=== PATIENT | male | born 1940 | race Caucasian/White ===

== ENCOUNTER → 2020-03-13 09:53 | Outpatient (BNVA) | payer MEDICARE, SELFPAY | PROVIDERS: Visit Provider Internal Medicine | DX: J30.9 Allergic rhinitis, unspecified (principal); J44.9 Chronic obstructive pulmonary disease, unspecified; Z79.899 Other long term (current) drug therapy | CPT/HCPCS: 99212 ==

== ENCOUNTER → 2020-07-11 09:48 | Outpatient (BNVA) | payer MEDICARE, SELFPAY | PROVIDERS: PCP Internal Medicine; Visit Provider Internal Medicine | DX: J44.9 Chronic obstructive pulmonary disease, unspecified (principal); J30.9 Allergic rhinitis, unspecified; Z79.51 Long term (current) use of inhaled steroids; Z87.891 Personal history of nicotine dependence | CPT/HCPCS: 99212 ==

== ENCOUNTER 2020-08-09 07:55 | Outpatient (REF) | payer MEDICARE, SELFPAY ==
[2020-08-09 10:13] LABS: MANUAL DIFF FLAG NO
[2020-08-09 10:28] LABS: Basophils Percent Auto 0.4 % (0-2); Eosinophils Absolute Auto 0.7 X10*3/uL (0.0-0.4); Eosinophils Percent Auto 8.1 % (0-4); Hematocrit 44.2 % (42-52); Imm Gran Abs Auto 0.04 X10*3/uL (0.00-0.03); Imm Gran Pct Auto 0.5 % (0.0-0.4); Lymphocytes Absolute Auto 2.1 X10*3/uL (1.2-4.9); Lymphocytes Percent Auto 24.9 % (20-40); Mean Corpuscular HGB Conc 31.7 g/dl (31.0-36.0); Mean Corpuscular Hemoglobin 27.2 pg (27.0-33.0); Mean Platelet Volume 10.7 fL (9.4-12.4); Monocytes Absolute Auto 0.6 X10*3/uL (0.1-1.2); Monocytes Percent Auto 6.8 % (2-11); Neutrophils Absolute Auto 5.1 X10*3/uL (2.0-8.3); Neutrophils Percent Auto 59.3 % (45-73); Platelet Count 181 X10*3/uL (160-400); Red Blood Count 5.14 X10*6/uL (4.60-5.80); Red Cell Distribution Width 13.2 % (11.0-16.0); White Blood Count 8.6 X10*3/uL (4.8-10.8)
[2020-08-09 10:45] LABS: Alanine Aminotransferase 17 U/L (0-40); Albumin Level 4.1 g/dL (3.5-5.0); Alkaline Phosphatase 81 U/L (39-117); Anion Gap 13 (12-20); Aspartate Amino Transferase 16 U/L (5-37); Bilirubin Total 0.5 mg/dL (0.0-1.0); Blood Urea Nitrogen 22 mg/dL (9-16); Calcium 9.3 mg/dL (8.4-10.2); Carbon Dioxide 26 mmol/L (22-29); Chloride 105 mmol/L (96-108); Cholesterol 128 mg/dL; Estimated Glomerular Filt Rate > 60; Glucose Fasting 151 mg/dL (60-99); HDL Cholesterol 43 mg/dL; LDL Cholesterol Calculated 67 mg/dl; Potassium 4.8 mmol/L (3.3-5.1); Sodium 139 mmol/L (135-145); Total Protein 6.6 g/dL (6.5-8.0); Triglycerides 91 mg/dL
[2020-08-09 10:53] LABS: Creatinine Urine 87.97 mg/dL; Microalbum/Creatinine Ratio Ur 12.5 ug/mg cr
[2020-08-09 10:58] LABS: Estimated Average Glucose 148 mg/dL; Hemoglobin A1c % 6.8 %
[2020-08-09 11:29] LABS: Vitamin B12 382 pg/mL (200-900)
== END 2020-08-09 07:56 | disposition home or self-care (01) ==
LOC: HO.10HDL 07:55
PROVIDERS: Visit Provider Internal Medicine
DX: Z00.00 Encounter for general adult medical examination without abnormal findings (principal); E11.40 Type 2 diabetes mellitus with diabetic neuropathy, unspecified; E78.00 Pure hypercholesterolemia, unspecified; F33.42 Major depressive disorder, recurrent, in full remission; I10 Essential (primary) hypertension; J44.9 Chronic obstructive pulmonary disease, unspecified; J30.9 Allergic rhinitis, unspecified; Z86.73 Personal history of transient ischemic attack (TIA), and cerebral infarction without residual deficits
CPT/HCPCS: 36415; 80053; 80061; 82043; 82607; 83036; 85025

== ENCOUNTER 2020-08-09 08:15 | Outpatient (REF) | payer MEDICARE, SELFPAY ==
--- NOTE | ~2020-08-09 | XR_ITS ---
EXAMINATION: XR CHEST CLINICAL INFORMATION: Chronic obstructive pulmonary disease. COMPARISON: No priors. TECHNIQUE: 2 views of the chest were obtained. FINDINGS: Normal lung volumes. No consolidation or pulmonary edema. Subtle lucency in the upper lungs which may reflect sequelae of obstructive pulmonary disease. No pneumothorax or pleural effusion. Cardiomediastinal silhouette within normal limits. No acute osseous abnormality. XR/XR chest 2V IMPRESSION: Subtle lucency in the upper lungs which may reflect sequelae of obstructive pulmonary disease. Low-dose CT examination of the chest may be considered for further characterization.
== END 2020-08-09 08:16 | disposition home or self-care (01) ==
LOC: HO.XRAY 08:15
PROVIDERS: PCP Internal Medicine; Visit Provider Internal Medicine
DX: J30.9 Allergic rhinitis, unspecified (principal); J44.9 Chronic obstructive pulmonary disease, unspecified
CPT/HCPCS: 71046

== ENCOUNTER 2020-11-10 12:32 | Emergency (ER) | payer MEDICARE, SELFPAY ==
[2020-11-13 10:40] LABS: Glucose, Whole Blood 106 mg/dL (60-115)
== END 2020-11-10 16:37 | disposition left against medical advice (07) ==
PROVIDERS: Emergency Provider Emergency Medicine
DX: R73.9 Hyperglycemia, unspecified (principal)
CPT/HCPCS: 82947; 99282

== ENCOUNTER 2020-11-14 09:12 | Outpatient (REF) | payer MEDICARE, SELFPAY ==
[2020-11-14 10:31] LABS: Estimated Average Glucose 146 mg/dL; Hemoglobin A1c % 6.7 %
[2020-11-14 10:41] LABS: Alanine Aminotransferase 11 U/L (0-40); Albumin Level 3.4 g/dL (3.5-5.0); Alkaline Phosphatase 78 U/L (39-117); Anion Gap 14 (12-20); Aspartate Amino Transferase 13 U/L (5-37); Bilirubin Total 0.3 mg/dL (0.0-1.0); Blood Urea Nitrogen 20 mg/dL (9-16); Calcium 8.7 mg/dL (8.4-10.2); Carbon Dioxide 24 mmol/L (22-29); Chloride 106 mmol/L (96-108); Estimated Glomerular Filt Rate > 60; Glucose Random 137 mg/dL (60-115); Potassium 5.4 mmol/L (3.3-5.1); Sodium 139 mmol/L (135-145); Total Protein 6.7 g/dL (6.5-8.0)
== END 2020-11-14 09:13 | disposition home or self-care (01) ==
LOC: HO.LAB 09:12
PROVIDERS: PCP Internal Medicine; Visit Provider Internal Medicine
DX: E11.9 Type 2 diabetes mellitus without complications (principal); E78.00 Pure hypercholesterolemia, unspecified; I10 Essential (primary) hypertension; Z86.73 Personal history of transient ischemic attack (TIA), and cerebral infarction without residual deficits
CPT/HCPCS: 36415; 80053; 83036

== ENCOUNTER → 2020-11-15 14:23 | Outpatient (BNVA) | payer MEDICARE, SELFPAY | PROVIDERS: PCP Internal Medicine; Visit Provider Internal Medicine | DX: J30.9 Allergic rhinitis, unspecified (principal); J44.1 Chronic obstructive pulmonary disease with (acute) exacerbation | CPT/HCPCS: 99212 ==

== ENCOUNTER → 2021-01-15 09:41 | Outpatient (BNVA) | payer MEDICARE, SELFPAY | PROVIDERS: PCP Internal Medicine; Visit Provider Internal Medicine | DX: J30.9 Allergic rhinitis, unspecified (principal); J44.9 Chronic obstructive pulmonary disease, unspecified | CPT/HCPCS: 99212 ==

== ENCOUNTER 2021-02-12 07:33 | Outpatient (REF) | payer MEDICARE, SELFPAY ==
[2021-02-12 10:20] LABS: Alanine Aminotransferase 17 U/L (0-40); Albumin Level 4.3 g/dL (3.5-5.0); Alkaline Phosphatase 80 U/L (39-117); Anion Gap 14 (12-20); Aspartate Amino Transferase 15 U/L (5-37); Bilirubin Total 0.4 mg/dL (0.0-1.0); Blood Urea Nitrogen 24 mg/dL (9-16); Calcium 9.4 mg/dL (8.4-10.2); Carbon Dioxide 24 mmol/L (22-29); Chloride 108 mmol/L (96-108); Estimated Glomerular Filt Rate 60; Glucose Fasting 139 mg/dL (60-99); Potassium 4.8 mmol/L (3.3-5.1); Sodium 141 mmol/L (135-145); Total Protein 6.8 g/dL (6.5-8.0)
[2021-02-12 10:22] LABS: Estimated Average Glucose 140 mg/dL; Hemoglobin A1c % 6.5 %
== END 2021-02-12 07:34 | disposition home or self-care (01) ==
LOC: HO.10HDL 07:33
PROVIDERS: Visit Provider Internal Medicine
DX: Z13.89 Encounter for screening for other disorder (principal)
CPT/HCPCS: 36415; 80053; 83036

== ENCOUNTER → 2021-05-10 09:24 | Outpatient (BNVA) | payer MEDICARE, SELFPAY | PROVIDERS: PCP Internal Medicine; Visit Provider Internal Medicine | DX: J44.9 Chronic obstructive pulmonary disease, unspecified (principal) | CPT/HCPCS: Q3014 ==

== ENCOUNTER 2021-05-21 07:43 | Outpatient (REF) | payer MEDICARE, SELFPAY ==
[2021-05-21 10:29] LABS: MANUAL DIFF FLAG NO
[2021-05-21 10:38] LABS: Basophils Percent Auto 0.4 % (0-2); Eosinophils Absolute Auto 0.7 X10*3/uL (0.0-0.4); Eosinophils Percent Auto 7.6 % (0-4); Hematocrit 45.2 % (42.0-52.0); Hemoglobin 14.1 g/dl (14.0-18.0); Imm Gran Abs Auto 0.03 X10*3/uL (0.00-0.03); Imm Gran Pct Auto 0.3 % (0.0-0.4); Lymphocytes Absolute Auto 2.7 X10*3/uL (1.2-4.9); Lymphocytes Percent Auto 28.6 % (20-40); Mean Corpuscular HGB Conc 31.2 g/dl (31.0-36.0); Mean Corpuscular Hemoglobin 26.8 pg (27.0-33.0); Mean Corpuscular Volume 85.9 fL (80.0-98.0); Monocytes Absolute Auto 0.7 X10*3/uL (0.1-1.2); Monocytes Percent Auto 6.9 % (2-11); Neutrophils Absolute Auto 5.4 x10*3/uL (2.0-8.3); Neutrophils Percent Auto 56.2 % (45-73); Platelet Count 164 X10*3/uL (160-400); Red Blood Count 5.26 X10*6/uL (4.60-5.80); Red Cell Distribution Width 13.6 % (11.0-16.0); White Blood Count 9.6 X10*3/uL (4.8-10.8)
[2021-05-21 10:47] LABS: Alanine Aminotransferase 15 U/L (0-40); Alkaline Phosphatase 77 U/L (39-117); Aspartate Amino Transferase 15 U/L (5-37); Bilirubin Total 0.5 mg/dL (0.0-1.0); Blood Urea Nitrogen 31 mg/dL (9-16); Calcium 9.8 mg/dL (8.4-10.2); Cholesterol 146 mg/dL; Estimated Glomerular Filt Rate 52; Glucose Fasting 151 mg/dL (60-99); HDL Cholesterol 40 mg/dL; LDL Cholesterol Calculated 86 mg/dl; Total Protein 6.7 g/dL (6.5-8.0); Triglycerides 101 mg/dL
[2021-05-21 11:16] LABS: Creatinine Urine 81.95 mg/dL; Microalbum/Creatinine Ratio Ur 18.3 ug/mg cr
[2021-05-21 11:20] LABS: Vitamin B12 365 pg/mL (200-900)
[2021-05-21 11:35] LABS: Anion Gap 11 (12-20); Carbon Dioxide 26 mmol/L (22-29); Chloride 110 mmol/L (96-108); Potassium 5.9 mmol/L (3.3-5.1); Sodium 141 mmol/L (135-145)
[2021-05-21 11:39] LABS: Estimated Average Glucose 154 mg/dL
== END 2021-05-21 07:44 | disposition home or self-care (01) ==
LOC: HO.10HDL 07:43
PROVIDERS: Visit Provider Internal Medicine
DX: E11.9 Type 2 diabetes mellitus without complications (principal); E78.00 Pure hypercholesterolemia, unspecified; G25.0 Essential tremor; I10 Essential (primary) hypertension
CPT/HCPCS: 36415; 80053; 80061; 82043; 82607; 83036; 85025

== ENCOUNTER 2021-08-08 07:24 | Outpatient (REF) | payer MEDICARE, SELFPAY ==
[2021-08-08 10:51] LABS: Alanine Aminotransferase 19 U/L (0-40); Albumin Level 4.2 g/dL (3.5-5.0); Alkaline Phosphatase 84 U/L (39-117); Anion Gap 12 (12-20); Aspartate Amino Transferase 15 U/L (5-37); Bilirubin Total 0.5 mg/dL (0.0-1.0); Blood Urea Nitrogen 28 mg/dL (9-16); Calcium 9.9 mg/dL (8.4-10.2); Carbon Dioxide 28 mmol/L (22-29); Chloride 106 mmol/L (96-108); Estimated Glomerular Filt Rate 55; Glucose Random 170 mg/dL (60-115); Potassium 5.7 mmol/L (3.3-5.1); Sodium 140 mmol/L (135-145); Total Protein 6.9 g/dL (6.5-8.0)
[2021-08-08 10:55] LABS: Estimated Average Glucose 151 mg/dL; Hemoglobin A1c % 6.9 %
== END 2021-08-08 07:25 | disposition home or self-care (01) ==
LOC: HO.10HDL 07:24
PROVIDERS: PCP Internal Medicine; Visit Provider Internal Medicine
DX: Z00.00 Encounter for general adult medical examination without abnormal findings (principal); E11.22 Type 2 diabetes mellitus with diabetic chronic kidney disease; I12.9 Hypertensive chronic kidney disease with stage 1 through stage 4 chronic kidney disease, or unspecified chronic kidney disease; N18.9 Chronic kidney disease, unspecified; G25.0 Essential tremor
CPT/HCPCS: 36415; 80053; 83036

== ENCOUNTER 2021-11-08 07:52 | Outpatient (REF) | payer MEDICARE, SELFPAY ==
[2021-11-08 10:35] LABS: MANUAL DIFF FLAG NO
[2021-11-08 10:43] LABS: Basophils Absolute Auto 0.1 X10*3/uL (0.0-0.2); Basophils Percent Auto 0.5 % (0-2); Eosinophils Absolute Auto 0.7 X10*3/uL (0.0-0.4); Eosinophils Percent Auto 7.8 % (0-4); Hematocrit 44.1 % (42.0-52.0); Hemoglobin 14.2 g/dl (14.0-18.0); Imm Gran Abs Auto 0.03 X10*3/uL (0.00-0.03); Imm Gran Pct Auto 0.3 % (0.0-0.4); Lymphocytes Absolute Auto 2.8 X10*3/uL (1.2-4.9); Lymphocytes Percent Auto 29.7 % (20-40); Mean Corpuscular HGB Conc 32.2 g/dl (31.0-36.0); Mean Corpuscular Hemoglobin 27.8 pg (27.0-33.0); Mean Corpuscular Volume 86.3 fL (80.0-98.0); Mean Platelet Volume 11.5 fL (9.4-12.4); Monocytes Absolute Auto 0.6 X10*3/uL (0.1-1.2); Monocytes Percent Auto 6.6 % (2-11); Neutrophils Absolute Auto 5.2 x10*3/uL (2.0-8.3); Neutrophils Percent Auto 55.1 % (45-73); Platelet Count 170 X10*3/uL (160-400); Red Blood Count 5.11 X10*6/uL (4.60-5.80); Red Cell Distribution Width 13.5 % (11.0-16.0); White Blood Count 9.5 X10*3/uL (4.8-10.8)
[2021-11-08 10:55] LABS: Estimated Average Glucose 143 mg/dL; Hemoglobin A1c % 6.6 %
[2021-11-08 10:56] LABS: Alanine Aminotransferase 16 U/L (0-40); Albumin Level 4.3 g/dL (3.5-5.0); Alkaline Phosphatase 78 U/L (39-117); Anion Gap 12 (12-20); Aspartate Amino Transferase 14 U/L (5-37); Bilirubin Total 0.3 mg/dL (0.0-1.0); Blood Urea Nitrogen 33 mg/dL (9-16); Calcium 9.3 mg/dL (8.4-10.2); Carbon Dioxide 25 mmol/L (22-29); Chloride 109 mmol/L (96-108); Estimated Glomerular Filt Rate 54; Glucose Fasting 141 mg/dL (60-99); Potassium 5.1 mmol/L (3.3-5.1); Sodium 141 mmol/L (135-145); Total Protein 6.8 g/dL (6.5-8.0)
== END 2021-11-08 07:53 | disposition home or self-care (01) ==
LOC: HO.10HDL 07:52
PROVIDERS: Visit Provider Internal Medicine
DX: I12.9 Hypertensive chronic kidney disease with stage 1 through stage 4 chronic kidney disease, or unspecified chronic kidney disease (principal); N18.9 Chronic kidney disease, unspecified; E11.22 Type 2 diabetes mellitus with diabetic chronic kidney disease; J30.89 Other allergic rhinitis
CPT/HCPCS: 36415; 80053; 83036; 85025

== ENCOUNTER → 2021-11-12 08:52 | Outpatient (BNVA) | payer MEDICARE, SELFPAY | PROVIDERS: PCP Internal Medicine; Visit Provider Internal Medicine | DX: J44.9 Chronic obstructive pulmonary disease, unspecified (principal); J30.9 Allergic rhinitis, unspecified; Z79.899 Other long term (current) drug therapy | CPT/HCPCS: 99212 ==

== ENCOUNTER 2022-02-11 07:33 | Outpatient (REF) | payer MEDICARE, SELFPAY ==
[2022-02-11 11:04] LABS: Estimated Average Glucose 140 mg/dL; Hemoglobin A1c % 6.5 %
[2022-02-11 11:05] LABS: Alanine Aminotransferase 12 U/L (0-40); Albumin Level 3.8 g/dL (3.5-5.0); Alkaline Phosphatase 80 U/L (39-117); Anion Gap 18 (12-20); Aspartate Amino Transferase 12 U/L (5-37); Bilirubin Total 0.2 mg/dL (0.0-1.0); Blood Urea Nitrogen 51 mg/dL (9-16); Carbon Dioxide 23 mmol/L (22-29); Chloride 106 mmol/L (96-108); Estimated Glomerular Filt Rate 39; Glucose Fasting 142 mg/dL (60-99); Sodium 142 mmol/L (135-145); Total Protein 6.8 g/dL (6.5-8.0)
== END 2022-02-11 07:34 | disposition home or self-care (01) ==
LOC: HO.10HDL 07:33
PROVIDERS: Visit Provider Internal Medicine
DX: E11.9 Type 2 diabetes mellitus without complications (principal); J44.9 Chronic obstructive pulmonary disease, unspecified; L67.1 Variations in hair color; N18.9 Chronic kidney disease, unspecified
CPT/HCPCS: 36415; 80053; 83036

== ENCOUNTER → 2022-02-25 09:24 | Outpatient (BNVA) | payer MEDICARE, SELFPAY | PROVIDERS: PCP Internal Medicine; Visit Provider Surgery Vascular Surgery | DX: I73.9 Peripheral vascular disease, unspecified (principal) | CPT/HCPCS: 99202 ==

== ENCOUNTER 2022-03-06 13:09 | Outpatient (REF) | payer MEDICARE, SELFPAY ==
--- NOTE | ~2022-03-06 | US_ITS ---
EXAMINATION: NONINVASIVE ASSESSMENT OF THE ARTERIES OF BOTH LOWER EXTREMITIES WITH PVR EXAM AND BILATERAL LOWER EXTREMITY DUPLEX Concepción Rizo MD CLINICAL INFORMATION: Peripheral vascular disease TECHNIQUE: Ankle pulse volume recordings, ankle pressure measurements and ankle brachial indices were obtained of the lower extremity arterial system bilaterally in addition to duplex Doppler techniques with wave form analysis and measurement of velocities in the common femoral, profunda femoral, superficial femoral, popliteal and tibial arteries. The study was performed only at rest. COMPARISON: None FINDINGS: a) AT REST: RIGHT LE. The right ankle-brachial index is: 1.09 * >0.97-1.25 = normal - no significant arterial disease * 0.75-0.96 = mild peripheral arterial disease * 0.5-0.74 = moderate peripheral arterial disease * <0.50 = severe peripheral arterial disease 2. Right ankle pressure: normal. 3. Right ankle PVR waveform: normal. 4. Right direct duplex Doppler findings: Common femoral artery: 206 cm/s, Multiphasic Profunda femoris artery: 188 cm/s, Multiphasic Superficial femoral artery (proximal): 160 cm/s, Multiphasic Superficial femoral artery (mid): 143 cm/s, Multiphasic Superficial femoral artery (distal): 91 cm/s, Multiphasic Proximal Popliteal artery: 72 cm/s, Multiphasic Mid posterior tibial artery: 82 cm/s, Multiphasic LEFT LE. The left ankle-brachial index is: 1.01 * >0.97-1.25 = normal - no significant arterial disease * 0.75-0.96 = mild peripheral arterial disease * 0.5-0.74 = moderate peripheral arterial disease * <0.50 = severe peripheral arterial disease 2. Left ankle pressure: normal. 3. Left ankle PVR waveform: normal. 4. Left direct duplex Doppler findings: Common femoral artery: 170 cm/s, Multiphasic Profunda femoris artery: 136 cm/s, Multiphasic Superficial femoral artery (proximal): 132 cm/s, Multiphasic Superficial femoral artery (mid): 116 cm/s, Multiphasic Superficial femoral artery (distal): 95 cm/s, Multiphasic Proximal Popliteal artery: 73 cm/s, Multiphasic Mid posterior tibial artery: 80 cm/s, Multiphasic Cardiac arrhythmia was identified. US/US FUNMI complete IMPRESSION: There is no evidence of any hemodynamically significant lower extremity arterial disease by pressure, waveform or duplex Doppler criteria at rest.
--- NOTE | ~2022-03-06 | US_ITS ---
EXAMINATION: NONINVASIVE ASSESSMENT OF THE ARTERIES OF BOTH LOWER EXTREMITIES WITH PVR EXAM AND BILATERAL LOWER EXTREMITY DUPLEX Concepción Rizo MD CLINICAL INFORMATION: Peripheral vascular disease TECHNIQUE: Ankle pulse volume recordings, ankle pressure measurements and ankle brachial indices were obtained of the lower extremity arterial system bilaterally in addition to duplex Doppler techniques with wave form analysis and measurement of velocities in the common femoral, profunda femoral, superficial femoral, popliteal and tibial arteries. The study was performed only at rest. COMPARISON: None FINDINGS: a) AT REST: RIGHT LE. The right ankle-brachial index is: 1.09 * >0.97-1.25 = normal - no significant arterial disease * 0.75-0.96 = mild peripheral arterial disease * 0.5-0.74 = moderate peripheral arterial disease * <0.50 = severe peripheral arterial disease 2. Right ankle pressure: normal. 3. Right ankle PVR waveform: normal. 4. Right direct duplex Doppler findings: Common femoral artery: 206 cm/s, Multiphasic Profunda femoris artery: 188 cm/s, Multiphasic Superficial femoral artery (proximal): 160 cm/s, Multiphasic Superficial femoral artery (mid): 143 cm/s, Multiphasic Superficial femoral artery (distal): 91 cm/s, Multiphasic Proximal Popliteal artery: 72 cm/s, Multiphasic Mid posterior tibial artery: 82 cm/s, Multiphasic LEFT LE. The left ankle-brachial index is: 1.01 * >0.97-1.25 = normal - no significant arterial disease * 0.75-0.96 = mild peripheral arterial disease * 0.5-0.74 = moderate peripheral arterial disease * <0.50 = severe peripheral arterial disease 2. Left ankle pressure: normal. 3. Left ankle PVR waveform: normal. 4. Left direct duplex Doppler findings: Common femoral artery: 170 cm/s, Multiphasic Profunda femoris artery: 136 cm/s, Multiphasic Superficial femoral artery (proximal): 132 cm/s, Multiphasic Superficial femoral artery (mid): 116 cm/s, Multiphasic Superficial femoral artery (distal): 95 cm/s, Multiphasic Proximal Popliteal artery: 73 cm/s, Multiphasic Mid posterior tibial artery: 80 cm/s, Multiphasic Cardiac arrhythmia was identified. US/US arterial duplex LE BI IMPRESSION: There is no evidence of any hemodynamically significant lower extremity arterial disease by pressure, waveform or duplex Doppler criteria at rest.
== END 2022-03-06 13:10 | disposition home or self-care (01) ==
LOC: HO.US 13:09
PROVIDERS: Visit Provider Surgery Vascular Surgery
DX: I73.9 Peripheral vascular disease, unspecified (principal)
CPT/HCPCS: 93923; 93925

== ENCOUNTER → 2022-03-11 14:46 | Outpatient (BNVA) | payer MEDICARE, SELFPAY | PROVIDERS: PCP Internal Medicine; Visit Provider Surgery Vascular Surgery | DX: I73.9 Peripheral vascular disease, unspecified (principal) | CPT/HCPCS: 99212 ==

== ENCOUNTER 2022-05-13 07:55 | Outpatient (REF) | payer MEDICARE, SELFPAY ==
[2022-05-13 11:06] LABS: MANUAL DIFF FLAG NO
[2022-05-13 11:16] LABS: Basophils Absolute Auto 0.1 X10*3/uL (0.0-0.2); Basophils Percent Auto 0.6 % (0-2); Eosinophils Absolute Auto 0.7 X10*3/uL (0.0-0.4); Eosinophils Percent Auto 6.4 % (0-4); Hematocrit 40.4 % (42.0-52.0); Hemoglobin 12.5 g/dl (14.0-18.0); Imm Gran Abs Auto 0.04 X10*3/uL (0.00-0.03); Imm Gran Pct Auto 0.4 % (0.0-0.4); Lymphocytes Absolute Auto 2.7 X10*3/uL (1.2-4.9); Lymphocytes Percent Auto 24.1 % (20-40); Mean Corpuscular HGB Conc 30.9 g/dl (31.0-36.0); Mean Corpuscular Hemoglobin 25.5 pg (27.0-33.0); Mean Corpuscular Volume 82.4 fL (80.0-98.0); Monocytes Absolute Auto 0.7 X10*3/uL (0.1-1.2); Monocytes Percent Auto 6.2 % (2-11); Neutrophils Percent Auto 62.3 % (45-73); Platelet Count 243 X10*3/uL (160-400); Red Cell Distribution Width 15.1 % (11.0-16.0); White Blood Count 11.3 X10*3/uL (4.8-10.8)
[2022-05-13 11:27] LABS: Estimated Average Glucose 128 mg/dL; Hemoglobin A1c % 6.1 %
[2022-05-13 13:02] LABS: Alanine Aminotransferase 16 U/L (0-40); Albumin Level 3.9 g/dL (3.5-5.0); Alkaline Phosphatase 103 U/L (39-117); Aspartate Amino Transferase 13 U/L (5-37); Bilirubin Total 0.3 mg/dL (0.0-1.0); Blood Urea Nitrogen 66 mg/dL (9-16); Calcium 9.6 mg/dL (8.4-10.2); Cholesterol 129 mg/dL; Estimated Glomerular Filt Rate 33; Glucose Fasting 130 mg/dL (60-99); HDL Cholesterol 36 mg/dL; LDL Cholesterol Calculated 73 mg/dl; Total Protein 6.8 g/dL (6.5-8.0); Triglycerides 102 mg/dL
[2022-05-13 13:46] LABS: Vitamin B12 535 pg/mL (200-900)
[2022-05-13 14:25] LABS: Anion Gap 15 (12-20); Carbon Dioxide 20 mmol/L (22-29); Chloride 112 mmol/L (96-108); Potassium 6.1 mmol/L (3.3-5.1); Sodium 141 mmol/L (135-145)
== END 2022-05-13 07:56 | disposition home or self-care (01) ==
LOC: HO.10HDL 07:55
PROVIDERS: Visit Provider Internal Medicine
DX: I12.9 Hypertensive chronic kidney disease with stage 1 through stage 4 chronic kidney disease, or unspecified chronic kidney disease (principal); E11.22 Type 2 diabetes mellitus with diabetic chronic kidney disease; N18.9 Chronic kidney disease, unspecified; E78.00 Pure hypercholesterolemia, unspecified
CPT/HCPCS: 36415; 80053; 80061; 82607; 82746; 83036; 85025

== ENCOUNTER 2022-05-14 14:16 | Outpatient (REF) | payer MEDICARE, SELFPAY ==
[2022-05-14 16:15] LABS: Alanine Aminotransferase 19 U/L (0-40); Albumin Level 4.1 g/dL (3.5-5.0); Alkaline Phosphatase 101 U/L (39-117); Anion Gap 18 (12-20); Aspartate Amino Transferase 17 U/L (5-37); Bilirubin Total 0.2 mg/dL (0.0-1.0); Blood Urea Nitrogen 61 mg/dL (9-16); Calcium 9.7 mg/dL (8.4-10.2); Carbon Dioxide 20 mmol/L (22-29); Chloride 110 mmol/L (96-108); Estimated Glomerular Filt Rate 32; Glucose Random 98 mg/dL (60-115); Potassium 5.8 mmol/L (3.3-5.1); Sodium 142 mmol/L (135-145); Total Protein 7.3 g/dL (6.5-8.0)
== END 2022-05-14 14:17 | disposition home or self-care (01) ==
LOC: HO.LAB 14:16
PROVIDERS: PCP Internal Medicine; Visit Provider Internal Medicine
DX: E87.5 Hyperkalemia (principal); N17.9 Acute kidney failure, unspecified; I12.9 Hypertensive chronic kidney disease with stage 1 through stage 4 chronic kidney disease, or unspecified chronic kidney disease; N18.9 Chronic kidney disease, unspecified
CPT/HCPCS: 36415; 80053

== ENCOUNTER → 2022-05-21 09:06 | Outpatient (BNVA) | payer MEDICARE, SELFPAY | PROVIDERS: PCP Internal Medicine; Visit Provider Internal Medicine | DX: J44.9 Chronic obstructive pulmonary disease, unspecified (principal); J30.9 Allergic rhinitis, unspecified | CPT/HCPCS: 94010; 99212 ==

== ENCOUNTER 2022-05-21 10:23 | Outpatient (REF) | payer MEDICARE, SELFPAY ==
[2022-05-21 14:18] LABS: Alanine Aminotransferase 15 U/L (0-40); Albumin Level 3.9 g/dL (3.5-5.0); Alkaline Phosphatase 87 U/L (39-117); Anion Gap 12 (12-20); Aspartate Amino Transferase 12 U/L (5-37); Bilirubin Total 0.4 mg/dL (0.0-1.0); Blood Urea Nitrogen 41 mg/dL (9-16); Carbon Dioxide 24 mmol/L (22-29); Chloride 109 mmol/L (96-108); Estimated Glomerular Filt Rate 43; Glucose Random 136 mg/dL (60-115); Potassium 4.6 mmol/L (3.3-5.1); Sodium 140 mmol/L (135-145); Total Protein 6.6 g/dL (6.5-8.0)
== END 2022-05-21 10:24 | disposition home or self-care (01) ==
LOC: HO.10HDL 10:23
PROVIDERS: Visit Provider Internal Medicine
DX: I12.9 Hypertensive chronic kidney disease with stage 1 through stage 4 chronic kidney disease, or unspecified chronic kidney disease (principal); J44.9 Chronic obstructive pulmonary disease, unspecified; J30.9 Allergic rhinitis, unspecified; E87.5 Hyperkalemia; N17.9 Acute kidney failure, unspecified; N18.9 Chronic kidney disease, unspecified; Z79.899 Other long term (current) drug therapy
CPT/HCPCS: 36415; 80053

== ENCOUNTER 2022-08-26 07:32 | Outpatient (REF) | payer MEDICARE, SELFPAY ==
[2022-08-26 10:41] LABS: Appearance Urine Clear; Color Urine Yellow; Glucose Urine UA Negative (Negative); Leukocyte Esterase Urine Trace (Negative); Nitrite Urine Negative (Negative); UMIC TRIGGER UA YES; Urine Blood Negative (Negative); Urine Ketones Negative (Negative); Urine Protein 30 (1+) mg/dL (Neg-Trace)
[2022-08-26 10:47] LABS: Bacteria Urine None Seen (None Seen); Hyaline Casts Urine 0-2 /LPF (0-2); RBC Urine 0-2 /HPF (0-2); Squamous Epithelial Cell Urine 0-2 /HPF (0-2)
[2022-08-26 10:55] LABS: Estimated Average Glucose 166 mg/dL; Hemoglobin A1c % 7.4 %
[2022-08-26 11:05] LABS: Anion Gap 12 (12-20); Blood Urea Nitrogen 37 mg/dL (9-16); Calcium 9.2 mg/dL (8.4-10.2); Carbon Dioxide 24 mmol/L (22-29); Chloride 108 mmol/L (96-108); Estimated Glomerular Filt Rate 42; Glucose Random 193 mg/dL (60-115); Potassium 4.1 mmol/L (3.3-5.1); Sodium 140 mmol/L (135-145)
[2022-08-26 11:12] LABS: Alanine Aminotransferase 14 U/L (0-40); Albumin Level 3.8 g/dL (3.5-5.0); Alkaline Phosphatase 97 U/L (39-117); Anion Gap 11 (12-20); Aspartate Amino Transferase 12 U/L (5-37); Bilirubin Total 0.4 mg/dL (0.0-1.0); Blood Urea Nitrogen 37 mg/dL (9-16); Calcium 9.2 mg/dL (8.4-10.2); Carbon Dioxide 26 mmol/L (22-29); Chloride 107 mmol/L (96-108); Cholesterol 142 mg/dL; Estimated Glomerular Filt Rate 41; Glucose Fasting 194 mg/dL (60-99); HDL Cholesterol 34 mg/dL; LDL Cholesterol Calculated 90 mg/dl; Potassium 4.2 mmol/L (3.3-5.1); Sodium 140 mmol/L (135-145); Total Protein 6.6 g/dL (6.5-8.0); Triglycerides 93 mg/dL
[2022-08-26 11:19] LABS: Prostate Specific Antigen Scr 9.35 ng/mL (<0.05-4.0); Thyroid Stimulating Hormone 1.18 uIU/mL (0.32-4.0); Vitamin D 25-OH Total 21.2 ng/mL (>30)
[2022-08-26 11:45] LABS: Creatinine Urine 95.01 mg/dL; Microalbum/Creatinine Ratio Ur 83.1 ug/mg cr
[2022-08-26 11:50] LABS: Creatinine Urine 94.85 mg/dL; Total Protein Urine Random 28 mg/dL (<12)
== END 2022-08-26 07:33 | disposition home or self-care (01) ==
LOC: HO.10HDL 07:32
PROVIDERS: Absent Provider Internal Medicine Hypertension Specialist; Visit Provider Internal Medicine
DX: Z00.01 Encounter for general adult medical examination with abnormal findings (principal); E11.22 Type 2 diabetes mellitus with diabetic chronic kidney disease; I12.9 Hypertensive chronic kidney disease with stage 1 through stage 4 chronic kidney disease, or unspecified chronic kidney disease; N18.31 Chronic kidney disease, stage 3a; E78.00 Pure hypercholesterolemia, unspecified; Z12.5 Encounter for screening for malignant neoplasm of prostate
CPT/HCPCS: 36415; 80048; 80053; 80061; 81001; 82043; 82306; 83036; 84153; 84156; 84443

== ENCOUNTER 2022-09-04 14:49 | Outpatient (REF) | payer MEDICARE, SELFPAY ==
--- NOTE | ~2022-09-04 | US_ITS ---
EXAMINATION: US RETROPERITONEAL LIMITED (RENAL ONLY) CLINICAL INFORMATION: Stage 3a chronic kidney disease. COMPARISON: None available. TECHNIQUE: Real-time imaging of the kidneys. FINDINGS: RIGHT KIDNEY: 10.5 x 5.6 x 5.2 cm (SAG x AP x TRV). The kidney is normal in size, contour, and echogenicity. Renal cortical thickness is normal. No calculi or focal parenchymal lesions. No hydronephrosis. LEFT KIDNEY: 8.4 x 4.1 x 4.9 cm (SAG x AP x TRV). The kidney is normal in contour. No focal parenchymal lesions or hydronephrosis. Nonobstructing stones measuring up to 8 mm. US/US renal BI IMPRESSION: Nonobstructing left renal nephrolithiasis. No hydronephrosis.
== END 2022-09-04 14:50 | disposition home or self-care (01) ==
LOC: HO.US 14:49
PROVIDERS: PCP Internal Medicine; Visit Provider Internal Medicine Hypertension Specialist
DX: N18.31 Chronic kidney disease, stage 3a (principal)
CPT/HCPCS: 76775

== ENCOUNTER → 2022-09-12 11:08 | Outpatient (BNVA) | payer MEDICARE, SELFPAY | PROVIDERS: PCP Internal Medicine; Visit Provider Nurse Practitioner Family | DX: R97.20 Elevated prostate specific antigen [PSA] (principal); R68.89 Other general symptoms and signs | CPT/HCPCS: 99202 ==

== ENCOUNTER 2022-09-17 07:39 | Outpatient (REF) | payer MEDICARE, SELFPAY ==
[2022-09-17 08:57] LABS: PSA,Total (Free>4and<10) 9.61 ng/mL (0.00-4.00)
[2022-09-18 10:13] LABS: Free Prostate Spec Ag 1.4 ng/mL; Percent Free Prostate Spec Ag 14 % (calc) (>25); Prostate Specific Ag Total 9.9 ng/mL (< OR = 4.0)
== END 2022-09-17 07:40 | disposition home or self-care (01) ==
LOC: HO.LAB 07:39
PROVIDERS: PCP Internal Medicine; Visit Provider Nurse Practitioner Family
DX: Z12.5 Encounter for screening for malignant neoplasm of prostate (principal); R97.20 Elevated prostate specific antigen [PSA]
CPT/HCPCS: 36415; 84153; 84154

== ENCOUNTER → 2022-10-08 09:19 | Outpatient (BNVA) | payer MEDICARE, SELFPAY | PROVIDERS: PCP Internal Medicine; Visit Provider Internal Medicine | DX: J44.9 Chronic obstructive pulmonary disease, unspecified (principal); J30.9 Allergic rhinitis, unspecified | CPT/HCPCS: 99212 ==

== ENCOUNTER 2022-10-16 07:05 | Outpatient (REF) | payer MEDICARE, SELFPAY ==
[2022-10-16 07:32] VITALS: BMI 25.1
[2022-10-16 07:34] VITALS: BP 147/69; PULSE 64; RESP 16; TEMP 36.1; O2SAT 98
--- NOTE | 2022-10-16 08:25 | W.PM.OPN ---
Operative Note Operative Note Date of Service: 10/16/22 Narrative: Preoperative diagnosis: Elevated PSA Postoperative diagnosis: Elevated PSA Prostate Cancer Procedure: 1. transrectal ultrasound measurement of prostate 2. transrectal ultrasound-guided pudendal nerve block 3. transrectal ultrasound-guided prostate biopsy 12 core Surgeon: Dr. Gerson Beatty Anesthetic: Local Indications for procedure: Elevated PSA 9.4 Procedure: After informed consent was verified, the patient was brought into the procedure area and lay left-hand side down on the table. Patient identity confirmed. Perioperative antibiotics confirmed. Safety pause time out performed. ÁNGEL performed to dilate rectal sphincter Iodine 10cc with Gel was placed per rectum Ultrasound probe was placed per rectum The prostate was measured in 3 dimensions Total volume equals 80 gm No cystic structures were noted calcifications were noted throughout and at the surgical margin The prostate was otherwise homogeneous in nature An ultrasound-guided pudendal nerve block was performed using 10 cc of 1% lidocaine. 8 cc was placed at the base and 2 cc of the apex. A 12 core biopsy was performed with 6 cores each side. Two cores were taken at the apex, mid and base. Cores were spaced between lateral and medial. He tolerated the procedure well. Was able to ambulate to bathroom after 5 minutes. Printed instructions regarding antibiotic use and common side effects such as low-grade temperature, potential infection and bleeding were given Pathology: 12 core prostate biopsy.
[2022-10-16 08:30] VITALS: BP 140/63; PULSE 67; RESP 16; O2SAT 97
== END 2022-10-16 07:06 | disposition home or self-care (01) ==
LOC: HO.MS 07:05
PROVIDERS: PCP Internal Medicine; Visit Provider Urology
PROC: (CPT 55700; principal; 2022-10-16 08:00)
DX: C61 Malignant neoplasm of prostate (principal); R97.20 Elevated prostate specific antigen [PSA]
CPT/HCPCS: 55700; 76942; 88305; 88344

== ENCOUNTER 2022-10-30 08:40 | Outpatient (AMB) | payer MEDICARE, SELFPAY ==
--- NOTE | 2022-10-30 08:40 | MHC.OFFVIS ---
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 He is a patient of Dr. Darby. He seen for the following urologic conditions - prostate cancer Telemedicine Evaluation 15 min Consultation Doximity Chanel Video attempted Son Jefry is a part of the visit Discussion of biopsy results Single core positive grade group 3 Recommendation given age is initial therapy with finasteride Will review in 4 months If stable can review every 4-6 months Questions answered Prostate cancer 10/1123 grade group 3, low volume Prostate biopsy for elevated PSA - 9.6, free 14% 80 g prostate at time of TRUS, pT1c Meghan score:? 7 (4+3) (left apex lateral) 80% Periprostatic fat inv.: Not identified Seminal vesicle inv.: Not identified Perineural inv.: Not identified Lymphovascular invasion:?? Not identified [facility] Medical History Allergic rhinitis COPD (chronic obstructive pulmonary disease) COPD exacerbation Stroke Social History Years Smoked: 2018 Review of Systems Const All systems reviewed & are unremarkable except as noted in HPI and below Reports no additional complaints Resp Reports no additional complaints GI Reports no additional complaints Reports as per HPI Musc Reports no additional complaints Physical Exam Telemedicine evaluation Appropriate responses Regular breathing rate and rhythm HEENT Head: Yes normal to inspection Ears: hearing grossly normal bilaterally Eyes General: appearance normal, both eyes and all related structures Neck Neck: Yes normal visual inspection Chest Chest palpation & inspection: normal inspection of the chest Resp Effort & Inspection: normal respiratory effort and able to speak in complete sentences Assessment & Plan Assessment & Plan (1) Prostate cancer: Code(s): C61 - Malignant neoplasm of prostate Plan Trial finasteride Orders: Orders PSA,Total (Free>4and<10) 4 Months C61 - Malignant neoplasm of prostate Medications: New finasteride 5 mg PO DAILY 90 days 90 tabs 1RF C61 - Malignant neoplasm of prostate, N13.8 - Other obstructive and reflux uropathy, N40.1 - Benign prostatic hyperplasia with lower urinary tract symptoms, R33.9 - Retention of urine, unspecified Patient Instructions: Imaging studies, laboratory and physical exam results were discussed and reviewed in detail. No major barriers to patient understanding were identified. An opportunity to ask questions regarding the treatment plan was provided. All questions were answered. The patient expressed understanding and agreement with the above treatment plan. The patient is aware they should contact our office by phone for worsening of their current condition or the appearance of new urologic symptoms. Compliance is encouraged with any medications and followup testing that is ordered. It is a privilege to participate in the urologic care of your patient. If you have any questions or concerns regarding treatment for the above conditions, or other urologic issues, please do not hesitate to contact me. The office telephone contact is [phone]. This note is constructed using voice recognition software. While every effort has been made to ensure accuracy reimbursement consultant errors may have been included. Yours sincerely, Dr Gerson Beatty MD, [facility] - Urology Providers of Expert, Compassionate Care for the Genitourinary System Telehealth Telehealth Location of provider rendering services: practice address Location of patient: address on file Patient Identification confirmed using: Name, : Yes Telehealth method: video Patient verbally consented to treatment: Yes Patient verbally consented to billing insurance company: Yes Patient informed of any privacy concerns related to visit: Yes Coding Level of Care Code Tele Est Pt Level 4 (20726) Diagnoses Prostate cancer C61
--- OUTSIDE RECORDS SUMMARY | 2022-10-30 08:41 | XMS_ITS | Patient Health Record ---
Author Name Unknown [facility] Ch[facility] xander Cahone Address [address] [place] [address] Care Team Providers Care Senior Director Insight Name Role Phone Monica Darby Primary Care Provider Unavailab Fabricio Granados Unavailable [phone] ALLERGIES No Known Allergies RESULTS Component Value Reference Range Notes HEMOGLOBIN A1C (GLYCOHEMOGLO BIN) Reviewed date:01/21/2022 09:19:29 AM Interpretation: Performing Lab: Notes/Report: TOTAL HEMOGLOBIN (HGBA1C) HEMOGLOBIN A1C (HH) HEMOGLOBIN A1C % (HH) 6.6 ESTIMATED AVG GLUCOSE REASON FOR REFERRAL Diagnosis 1 Pain in left toe(s) (M79.675) Diagnosis 2 Pain in left foot (M 79.672) Diagnosis 3 Plantar wart (B07.0) Diagnosis 4 Type 2 diabetes gerardo itus with diabetic peripheral angiopathy without gangrene (E11.51) Diagnosis 5 Tinea unguium (B35.1 ) Diagnosis 6 Xerosis cutis (L85.3 ) Referring Provider First Name Monica Referring Provider Last Name Wilner [facility] Referred Provider Fabricio Juan Referred Address [address],[place], [place],[address], Referred Provider Specialty Podiatry Referral Priority Routine MEDICATIONS Medication SIG (Take, Route, Frequency, Duration) Notes Start Date End Date Status Extra Depth Orthopedic Shoes (1 Pair) with Customized Heat Molded Multidensity Innersoles (3 Pair) as directed Dx: NIDDM/PVD (E11.59), Hammertoe Foot Deformity (M20.41,M20.42), Preulcerative Skin Lesion(s) (L85.1) 01/21/2022 Active Ammonium Lactate 12 % 1 application to affected area Externally to feet Twice a day for 30 days Active Propranolol HCl 40 MG as directed Orally Active metFORMIN HCl 500 MG 1 tablet with a alfonso l Orally Once a day for 30 day(s) Not-Taking Lisinopril 5 MG 1 tablet Orally Once a day for 30 day(s) Active Simvastatin 40 MG 1 tablet in the even ing Orally Once a day for 30 day(s) Active Mucinex DM 30-600 MG as directed Orally Active Breo Ellipta 100-25 MCG/INH as directed Inhalation Activ e immodium Active Famotidine 40 MG 1 tablet at bedtime Orally Once a day for 30 day(s) Active Clopidogrel Bisulfate 75 MG 1 tablet Orally Once a day for 30 day(s) Active glipiZIDE 5 MG 1 tablet 30 minutes before breakfast Orally Once a day for 30 day(s) Active Sertraline HCl 25 MG 1 tablet Orally Onc e a day for 30 day(s) Active SOCIAL HISTORY Tobacco Use: Social History Observation Description Date Details (start date - stop date) Former Smoker NA - NA Sex Assigned At : Social History Observation Description Sex Assigned At Unknown Tobacco Use/Smoking Question Answer Notes Are you a: former smoker Additional Findings: Tobacco Non-User Current no n-smoker Alcohol Screen Question Answer Notes Did you have a drink containing alcohol in the p ast year? No Points 0 Interpretation Negative Tobacco use other than smoking: Question Answer Notes Are you an other tobacco user? No PROBLEMS Problem Type ICD Code Onset Dates Problem Status W/U Status Risk SNOMED Code Notes Problem Other hammer toe(s) (acquired), right foot (M20.41) Active confirmed Acquired hammer toe of right foot (4898445557352 105) Problem Other hammer toe(s) (acquired), left foot (M20.42) Active confirmed Acquired hammer toe of left foot (6061248888730 103) Problem Plantar wart (B07.0) Active confirmed Plantar wart (90905052) Problem 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.51) Active confirmed Type 2 diabetes mellitus with peripheral angiopathy (319885343) Encounters Encounter Location Date Provider Diagnosis [facility] [place] [address] [place] [phone] 01/21/2022 Fabricio Juan Type 2 diabetes mellitus with diabetic peripheral angiopathy without gangrene E11.51 ; Tinea unguium B35.1 ; Pain in right toe(s) M79.674 ; Pain in left toe(s) M79.675 ; Plantar wart B07.0 ; Pain in left foot M79.672 ; Other hammer toe(s) (acquired), right foot M20.41 and Other hammer toe(s) (acquired), left foot M20.[address] [address] 01/29/2022 [facility] [address] [place] [phone] 02/04/2022 [facility] [address] 02/04/2022 [facility] Yessica [address] [address] 02/06/2022 Fabricio Juan Pain in left toe(s) M79.675 ; Subungual exostosis of great toe M89.9 ; 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 and PVD (peripheral vascular disease) I73.[address] [address] 04/23/2022 Fabricio Juan [address] [address] 05/07/2022 Fabricio Juan Type 2 diabetes mellitus with diabetic peripheral angiopathy without gangrene E11.51 ; Tinea unguium B35.1 ; Pain in right toe(s) M79.674 ; Pain in left toe(s) M79.675 ; Plantar wart B07.0 ; Pain in left foot M79.672 ; Other hammer toe(s) (acquired), right foot M20.41 and Other hammer toe(s) (acquired), left foot M20.[address] [address] 08/13/2022 Fabricio Juan Type 2 diabetes mellitus with diabetic peripheral angiopathy without gangrene E11.51 ; Tinea unguium B35.1 ; Pain in right toe(s) M79.674 ; Pain in left toe(s) M79.675 ; Plantar wart B07.0 ; Pain in left foot M79.672 and Xerosis cutis L85.3 [facility] [address] [address] [place] [address] 08/14/2022 Fabricio Juan Xerosis cutis L85.3 ASSESSMENTS Encounter Date Diagnosis Assessment Notes Treatment Notes Treatment Clinical Notes 01/21/2022 Tinea unguium (ICD-1 0 - B35.1) 01/21/2022 Type 2 diabetes mellitus with diabetic peripheral angiopathy without gangrene (ICD-10 - E11.51) 02/06/2022 Pain in left toe(s) (ICD-10 - M79.675) 02/06/2022 Subungual exostosis of great toe (ICD-10 - M89.9) 05/07/2022 Tinea unguium (ICD-1 0 - B35.1) 05/07/2022 Type 2 diabetes mellitus with diabetic peripheral angiopathy without gangrene (ICD-10 - E11.51) 08/13/2022 Tinea unguium (ICD-1 0 - B35.1) 08/13/2022 Type 2 diabetes mellitus with diabetic peripheral angiopathy without gangrene (ICD-10 - E11.51) 08/14/2022 Xerosis cutis (ICD-1 0 - L85.3) 08/13/2022 Pain in right toe(s) (ICD-10 - M79.674) 05/07/2022 Pain in right toe(s) (ICD-10 - M79.674) 02/06/2022 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 (ICD-10 - M19.072) 01/21/2022 Pain in right toe(s) (ICD-10 - M79.674) 01/21/2022 Pain in left toe(s) (ICD-10 - M79.675) 02/06/2022 PVD (peripheral vascular disease) (ICD-10 - I73.9) 05/07/2022 Pain in left toe(s) (ICD-10 - M79.675) 08/13/2022 Pain in left toe(s) (ICD-10 - M79.675) 08/13/2022 Plantar wart (ICD-10 - B07.0) 05/07/2022 Plantar wart (ICD-10 - B07.0) 01/21/2022 Plantar wart (ICD-10 - B07.0) 01/21/2022 Pain in left foot (ICD-10 - M79.672) 05/07/2022 Pain in left foot (ICD-10 - M79.672) 08/13/2022 Pain in left foot (ICD-10 - M79.672) 05/07/2022 Other hammer toe(s) (acquired), right foot (ICD-10 - M20.41) 01/21/2022 Other hammer toe(s) (acquired), right foot (ICD-10 - M20.41) Patient Educated with: DIABETIC FOOT CARE INSTRUCTIONS.pdf (DIABETIC FOOT CARE INSTRUCTIONS.pdf ) 01/21/2022 Other hammer toe(s) (acquired), left foot (ICD-10 - M20.42) 05/07/2022 Other hammer toe(s) (acquired), left foot (ICD-10 - M20.42) 08/13/2022 Xerosis cutis (ICD-1 0 - L85.3) PLAN OF TREATMENT Pending Test Test Name Order Date X ray : Foot, left 3V 02/06/2022 [id number] NAIL, 1-5 05/07/2022 29037-HZODDHU NAIL, 1-5 08/13/2022 [id number] NAIL, 1-5 01/21/2022 52261-Rxmp Destruction, 1-14 01/21/2022 10999-Vzvn Destruction, 1-14 08/13/2022 41170-Ahnu Destruction, 1-14 05/07/2022 90685-QDAO SKIN LESIONS, OVER 4 05/07/19 23 09006-LKHB SKIN LESIONS, OVER 4 08/14/19 23 20522-WIAS SKIN LESIONS, OVER 4 01/22/20 22 [id number] DYSTROPHIC NAILS ANY # O4515-LADSWBDC DYSTROPHIC NAILS ANY # X3999-OROFQVXL DYSTROPHIC NAILS ANY # Next Appt Details Provider Name:Fabricio Juan , 11/12/2022 09:30:00 AM, [address] [place], [address], Insurance Providers Payer Name Payer Address Payer Phone Subscriber Number Group Number Insured Name Patient Relationship to Insured Coverage Start Date Coverage End Date [employer] Preferred [address] [place] [address] [phone] [id number] Jhonny Shrestha Self - patient is the insured MEDICAL (GENERAL) HISTORY Medical History History ICD Code asthma Diabetic type ll Lung disease Parkinsons disease Stroke Chicken pox COPD Surgical History Surgery Date(Month/Year) appendectomy gall bladder Hospitalization History Reason Date(Month/Year) Ultrasound both legs for veins 2021
--- OUTSIDE RECORDS SUMMARY | 2022-10-30 08:41 | XMS_ITS ---
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 168647953 Problem Diarrhea, unspecified type R19.7 Active 06242742 Problem Iron deficiency anemia due to chronic blood loss D50.0 Active [id number] ALLERGIES No Known Allergies ENCOUNTERS Encounter Location Date Diagnosis [facility] [address] [place] [phone] Feb, Diarrhea, unspecified type R19.7 ; Iron deficiency anemia due to chronic blood loss D50.0 and Angiodysplasia of stomach K31.819 [facility] [address] [place] [phone] Apr, Iron deficiency anemia due to chronic blood loss D50.0 ; Diarrhea, unspecified type R19.7 and Angiodysplasia of stomach K31.819 [facility] [address] [place] [phone] Oct, Diarrhea, unspecified type R19.7 ; Iron deficiency anemia due to chronic blood loss D50.0 and Angiodysplasia of stomach K31.819 [facility] [address] [place] [address] Sep, [facility] [address] [place] [address] Sep, Iron deficiency anemia due to chronic blood loss D50.0 [facility] [address] [place] [address] Sep, [facility] [address] [place] [address] August, [facility] [address] [place] [address] August, Iron deficiency anemia due to chronic blood loss D50.0 IMMUNIZATIONS Vaccine Route Administration Date Status Influenza Unknown Dec 29, 2019 Administered Influenza Unknown Dec 20, 2018 Administered Influenza Unknown Jan 28, 2018 Administered SOCIAL HISTORY Qualifiers Date Former Smoker REASON FOR REFERRAL FUNCTIONAL STATUS PLAN OF CARE Activity Details VITAL SIGNS Weight 175 lbs 2020-03-01 Weight 170 lbs 2019-05-20 Weight 160 lbs 2018-11-17 Height 69 in 2020-03-01 Height 69 in 2019-05-20 Height 69 in 2018-11-17 BMI 25.84 kg/m2 2020-03-01 BMI 25.10 kg/m2 2019-05-20 BMI 23.63 kg/m2 2018-11-17 Heart Rate 72 /min 2018-11-17 Temperature 97.5 degrees Fahrenheit Blood pressure systolic 000 mm Hg Blood pressure diastolic 00 mm Hg 2020-02 MEDICATIONS Medication Instructions Dosage Frequency Start Date End Date Duration Status Clopidogrel Bisulfate 75 MG Orally Once a day 1 tablet 24h 30 day(s) Active Famotidine 40 MG Orally Once a day 1 tablet 24h Active metroNIDAZOLE Ac tive Sertraline HCl 25 MG Orally Once a day 1 tablet 24h 30 day(s) Active glipiZIDE 5 MG Orally Once a day 1 tablet 24h Active Omeprazole 20 MG Orally Once a day 1 capsule 24h Not-Takin g metFORMIN HCl 500 MG Orally as directed 1am and 2pmtablet with a meal Active Simvastatin 40 MG Orally Once a day 1 tablet in the evening 24h Active Breo Ellipta 100-25 MCG/INH Inhalation Once a day 1 puff 24h Active ZyrTEC Allergy 10 MG Orally Once a day 1 tablet 24h 30 day(s) Active Imodium A-D 2 MG Orally prn 1 tablet as needed Active Dicyclomine HCl Active Mucinex DM 30-600 MG Orally every 12 hrs 1 tablet as needed 12h Active Lisinopril 5 MG Orally Once a day 1 tablet 24h 30 day(s) Active Aspir-Low 81 MG Orally Once a day 1 tablet 24h 30 day(s) Not-Takin g PROCEDURES Procedure Date Ordered Result Body Site TOBACCO NON-USER May 20, 2019 DIAGNOSTIC COLONOSCOPY August 24, 2018 TOBACCO NON-USER Mar 01, 2020 DOC MEDS VERIFIED W/PT OR RE November 17, 2018 DOC MEDS VERIFIED W/PT OR RE May 20, 2019 DOC MEDS VERIFIED W/PT OR RE Mar 01, 2020 BP SCR PRFRM RCMDD DEFIND SCR INTVL November 17, 2018 BP SCR PRFRM RCMDD DEFIND SCR INTVL May 20, 2019 BP SCR PRFRM RCMDD DEFIND SCR INTVL Mar 01, 2020 UPPR GI ENDOSCOPY, DIAGNOSIS August 24, 2018 TOBACCO NON-USER November 17, 2018 INIT HOSP-MOD CPLX August 21, 2018 RESULTS Name Result Date Reference Range BASIC METABOLIC PROFILE FAST 2018-08-25 NA 139 135-145 K 4.5 3.3-5.1 CL 106 96-108 CO2 27 22-29 ANION GAP 11 12-20 FASTING BLOOD SUGAR 125 60-99 BUN 16 9-16 CREATININE 0.89 0.5-1.4 ESTIMATED GFR >60 ESTIMATED CrCl 68.4 CALCIUM 9.5 8.4-10.2 CBC w DIFF 2018-08-25 WBC 5.8 4.8-10.8 ABSOLUTE NEUTROPHIL COUNT 3.1 2. 2-7.9 RBC 4.51 4.60-5.80 HEMOGLOBIN 8.3 14.0-18.0 HEMATOCRIT 28.5 42-52 MCV 63.3 80-98 MCH 18.5 27.0-33.0 MCHC 29.2 31.0-36.0 PLATELET COUNT 227 160-400 RDW 26.3 11.0-16.0 NEUTROPHILS 53.5 45-73 LYMPHOCYTES 29.0 20-40 MONOCYTES 9.8 2-11 EOSINOPHILS 6.5 0-4 BASOPHILS 1.1 0-2 REASON FOR VISIT patient presents today for diarrhea, Patient presents today for HYACINTH, Patient presents today for follow HYACINTH, Diarrhea, update, Appointment Insurance Providers Health Insurance Type Health Plan Insurance Address Health Plan Insurance Phone Health Plan Insurance Name Health Plan Coverage Dates Member ID Patient Relationship to Subscriber Patient Address Patient Phone Patient Name Patient Date of Subscriber ID Subscriber Name Subscriber Date of Group No [employer] Medicare Compliment (Referral Need [address] [facility] [id number] [employer] Compliment (Referral Need self LOPEZ CASEY [id number] [employer] PREFERRED [address] [facility] [address] [employer] [employer] PREF[employer] self LOPEZ CASEY [id number] MEDICARE OF [place] [address] [facility] [address] MEDICARE OF [place] loreta CASEY [id number]
== END 2022-10-30 11:49 | disposition home or self-care (01) ==
LOC: HO.HUSH 08:40
PROVIDERS: PCP Internal Medicine; Visit Provider Urology
DX: C61 Malignant neoplasm of prostate (principal)
CPT/HCPCS: 99214

== ENCOUNTER → 2022-10-30 08:40 | Outpatient (BNVA) | payer MEDICARE, SELFPAY | PROVIDERS: PCP Internal Medicine; Visit Provider Urology | DX: C61 Malignant neoplasm of prostate (principal) | CPT/HCPCS: Q3014 ==

== ENCOUNTER 2022-11-11 07:43 | Outpatient (REF) | payer MEDICARE, SELFPAY ==
[2022-11-11 10:55] LABS: Alanine Aminotransferase 26 U/L (0-40); Alkaline Phosphatase 87 U/L (39-117); Anion Gap 11 (12-20); Aspartate Amino Transferase 18 U/L (5-37); Bilirubin Total 0.4 mg/dL (0.0-1.0); Blood Urea Nitrogen 59 mg/dL (9-16); Calcium 9.5 mg/dL (8.4-10.2); Carbon Dioxide 25 mmol/L (22-29); Chloride 108 mmol/L (96-108); Estimated Average Glucose 148 mg/dL; Estimated Glomerular Filt Rate 38; Glucose Random 139 mg/dL (60-115); Hemoglobin A1c % 6.8 %; Sodium 139 mmol/L (135-145); Total Protein 7.2 g/dL (6.5-8.0)
== END 2022-11-11 07:44 | disposition home or self-care (01) ==
LOC: HO.10HDL 07:43
PROVIDERS: Absent Provider Internal Medicine Hypertension Specialist; Visit Provider Internal Medicine
DX: E11.22 Type 2 diabetes mellitus with diabetic chronic kidney disease (principal); N18.32 Chronic kidney disease, stage 3b; E78.00 Pure hypercholesterolemia, unspecified; E87.5 Hyperkalemia; R97.20 Elevated prostate specific antigen [PSA]
CPT/HCPCS: 36415; 80053; 83036

== ENCOUNTER 2022-12-10 07:24 | Outpatient (REF) | payer MEDICARE, SELFPAY ==
[2022-12-10 11:06] LABS: Anion Gap 13 (12-20); Blood Urea Nitrogen 62 mg/dL (9-16); Calcium 9.6 mg/dL (8.4-10.2); Carbon Dioxide 20 mmol/L (22-29); Chloride 109 mmol/L (96-108); Estimated Glomerular Filt Rate 39; Potassium 5.1 mmol/L (3.3-5.1); Sodium 137 mmol/L (135-145)
[2022-12-12 10:39] LABS: Neutrophil Cyto Ab Screen NEGATIVE (NEGATIVE)
== END 2022-12-10 07:25 | disposition home or self-care (01) ==
LOC: HO.10HDL 07:24
PROVIDERS: Visit Provider Internal Medicine Hypertension Specialist
DX: N18.31 Chronic kidney disease, stage 3a (principal)
CPT/HCPCS: 36415; 80051; 82310; 82565; 84520; 86036

== ENCOUNTER 2022-12-16 14:01 | Outpatient (AMB) | payer MEDICARE, SELFPAY ==
[2022-12-16 14:43] VITALS: BP 120/62; PULSE 76; BMI 24.7
--- NOTE | 2022-12-16 14:43 | MHC.OFFVIS ---
Intake Vital Signs 12/16/22 14:43 Height 5 ft 9 in Weight 167 lb 8.821 oz BMI 24.7 BP 120/62 Blood Pressure Location Lt brachial Position Sitting Pulse 76 Pulse Source Monitor Intake Visit Reasons: NPV/Bradycardia/P. Adlakha Intake Note: New patient visit with EKG for evaluation of bradycardia. Pants Presser Automatic Required: No Accompanied by: Self / Same As Patient Allergies No Known Allergies [No Known Allergies*] Allergy (Verified 12/16/22 14:45) Medication List - Last Reconciled 12/16/22 by Jorge Ornelas MD albuterol sulfate 90 mcg/actuation (ProAir HFA) 2 puffs inhalation Q4-6H PRN 60 days Breo Ellipta 100-25 mcg/dose (fluticasone furoate-vilanterol) 1 inh inhalation DAILY 90 days NS cetirizine 10 mg PO DAILY clopidogrel 75 mg PO DAILY famotidine 40 mg PO DAILY PRN finasteride 5 mg PO DAILY 90 days fluticasone propionate 50 mcg/actuation (Flonase Allergy Relief) 1 spray intranasal BID glipizide ER 5 mg PO DAILY guaifenesin ER (Mucinex) 600 mg PO BID lisinopril-hydrochlorothiazide 10-12.5 mg 1 tab PO DAILY simvastatin 40 mg PO DAILY HPI HPI Comments History of Present Illness Details thank you for referring raw in cardiology management for significant bradycardia induced by medications. He said about a month ago because of severe tremors he was prescribed propranolol. Subsequent follow-up EKG was noted to have very slow heart rate an EKG performed showed marked sinus bradycardia with prolonged first-degree AV block. His propranolol was withheld since then. He comes for consultation for the same today. 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 His bradycardia has resolved although patient says he continues to have symptoms exertional fatigue and shortness of breath. He has underlying COPD. He has never had any prior cardiovascular history but does have peripheral arterial disease being followed by Dr. Grubbs. He denies prior myocardial infarction. Denies any orthopnea, PND, leg edema. No lightheadedness, syncope. [facility] Medical History Allergic rhinitis COPD (chronic obstructive pulmonary disease) COPD exacerbation Stroke Surgical History History of appendectomy Hx of cholecystectomy S/P tonsillectomy and adenoidectomy Family History Mother No problems noted. Father Heart disease Social History Alcohol intake: former Patient Tobacco Use Status: Former Tobacco user Quit Date: 2017 Years Smoked: 40 +/- Review of Systems Const Denies chills, Denies daytime sleepiness, Denies fatigue, Denies fever(s), Denies frequent falls, Denies night sweats, Denies snoring, Denies weakness, Denies weight gain and Denies weight loss Eyes Denies loss of vision ENT Denies dizziness and Denies hearing loss Card Denies chest pain, Denies chest pain with activity, Denies syncope, Denies rapid heart rate, Denies edema, Denies claudication, Denies leg edema, Denies lightheadedness, Denies palpitations, Denies dyspnea, Denies dyspnea on exertion and Denies orthopnea Resp Denies cough, Denies excessive phlegm production, Denies dyspnea, Denies dyspnea on exertion, Denies snoring and Denies wheezing GI Denies abdominal pain, Denies hematochezia, Denies change in bowel habits, Denies change in stool character, Denies heartburn, Denies nausea and Denies vomiting Denies hematuria, Denies dysuria and Denies urinary frequency Musc Denies arthralgias, Denies muscle weakness, Denies numbness and Denies tingling Skin/Breast Denies nail changes and Denies rash Neuro Denies Abnormal speech present, Denies dizziness, Denies syncope, Denies frequent falls, Denies loss of vision, Denies memory loss, Denies numbness, Denies tingling and Denies weakness Psych Denies depression and Denies memory loss Endo Denies fatigue and Denies palpitations Aller/Immun Denies wheezing Physical Exam Vital Signs: Last Vital Signs Pulse 76 12/16/22 14:43 BP 120/62 12/16/22 14:43 BMI result Body Mass Index 24.7 Const General: cooperative, comfortable, no acute distress, alert and awake Nutritional Appearance: average body habitus Orientation/consciousness: patient oriented x3 Limitations: no limitations HEENT Head: Yes normocephalic and Yes atraumatic Neck Neck: Yes trachea midline, Yes supple and Yes no JVD Resp Effort & Inspection: normal respiratory effort Auscultation: clear to auscultation bilaterally and diminished lung sounds Cardio Jugular venous distension: no JVD Palpation: normal PMI Rate: regular rate Rhythm: regular rhythm Heart sounds: S1 normal heart sound present, S2 normal heart sound present, no click, no gallops, no murmurs and no rubs GI Auscultation: normal bowel sounds Skin General skin exam: no rashes or lesions noted Neuro General: patient oriented x3 and no focal motor deficits Speech: No Abnormal speech present Extrem General: Yes no clubbing, cyanosis or edema Office Procedures EKG Details: EKG shows normal sinus rhythm with 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 Since as per frontal is been withheld and his heart rate on today's EKG is improved. However persists with symptoms of exertional fatigue and shortness of breath. Need to rule out any persistent evidence of chronotropic incompetence and/ or evidence of significant bradycardia. Suggest a 7 day Holter monitor to assess for the same. Also suggest to treadmill stress test, see below. patient has evidence of underlying most likely sick sinus syndrome and would avoid rate lowering medications the future (2) SOB (shortness of breath) on exertion: Code(s): R06.02 - Shortness of breath Plan: exertional shortness of breath this elderly gentleman with multiple risk factors. Suggest further workup with exercise myocardial perfusion imaging to evaluate for chronotropic competence as well as to evaluate hemodynamic response, exercise capacity and myocardial ischemia. Will also obtain an echocardiogram to assess LV systolic and diastolic function to evaluate for RV size and function and pulmonary hypertension. These tests will be scheduled in near future. Further treatment based on the findings. Follow up in the clinic after above-mentioned test. Thank you for allowing me to partake in his care Orders: Orders CA stress test Today R06.02 - Shortness of breath CA echo transthoracic complete Today R06.02 - Shortness of breath NM cardiolite stress test 2 Weeks R06.02 - Shortness of breath, R07.9 - Chest pain, unspecified ECG 7 day holter monitor Today R00.1 - Bradycardia, unspecified Coding Level of Care Code New Pt Level 4 (67758) Diagnoses Sinus bradycardia R00.1 SOB (shortness of breath) on exertion R06.02 CPT Codes EKG - CPT: [id number], Complete ([id number])
== END 2022-12-16 15:09 | disposition home or self-care (01) ==
PROVIDERS: PCP Internal Medicine; Visit Provider Internal Medicine Cardiovascular Disease
DX: R00.1 Bradycardia, unspecified (principal); R06.02 Shortness of breath
CPT/HCPCS: 93010; 99204

== ENCOUNTER → 2022-12-16 14:01 | Outpatient (BNVA) | payer MEDICARE, SELFPAY | PROVIDERS: PCP Internal Medicine; Visit Provider Internal Medicine Cardiovascular Disease | DX: R00.1 Bradycardia, unspecified (principal); R06.02 Shortness of breath; I44.0 Atrioventricular block, first degree | CPT/HCPCS: 93005; 99202 ==

== ENCOUNTER → 2023-01-16 08:02 | Outpatient (REF) | payer MEDICARE, SELFPAY ==
--- NOTE | 2023-01-16 08:04 | CA_ITS ---
Transthoracic Echocardiogram Patient (Last, First, Middle): Jhonny Shrestha G Gender: Male Date of : 1940 Age: 82 Procedure Date: 01/16/2023 Procedure Type: Transthoracic Echocardiogram Location: OP Height: 172.72 cm Weight: 77.11 kg BSA: 1.91 m2 Heart Rate: 82 bpm BP: 122 / 62 mmHg [employer]visor [employer]: MITESH Referring MD: Jorge Ornelas MD Single Needle Tufting Machine Operator: Jorge Ornelas MD Symptoms: R06.02 - Shortness of breath Study Quality: Adequate ECG Rhythm: Sinus arrhythmia Conclusions: - 1. Normal LV ejection fraction of 60 65% with impaired relaxation filling pattern 2. Normal cardiac valvular Doppler 3. No gross pericardial effusion Findings Left Ventricle Normal left ventricular size, thickness, and systolic function. The visually estimated ejection fraction is between 60-65%. Spectral Doppler is indicative of an impaired relaxation filling pattern. Right Ventricle Mildly increased right ventricular cavity size. There is normal right ventricular systolic function. Atria The left atrium is normal in size. Interatrial shunt cannot be excluded. The right atrium is normal in size. Aortic Valve The aortic valve structure and function is likely normal. There is no aortic valve stenosis. There is no aortic valve regurgitation. Mitral Valve Normal mitral valve structure and function. There is trace mitral valve regurgitation. There is no mitral valve stenosis. Pulmonic Valve The pulmonic valve was not well visualized. Tricuspid Valve Likely normal tricuspid valve structure and function. Tricuspid regurgitation envelope is inadequate for calculation of right ventricular systolic pressure. Normal right atrial pressure. Great Vessels All visible segments of the aorta are normal in size. The pulmonary artery was not well visualized. Venous The inferior vena cava is normal in size and collapses greater than 50% with inspiration. Pericardium/Pleural There is no evidence of pericardial effusion. Measurements 2D Linear Measurements IVSd: 1.06 0.6-0.9/0.6-1.0 cm LVIDd: 4.12 3.9-5.3/4.2-5.9 cm LVIDd Index: 2.16 2.4-3.2/2.2-3.1 cm/m2 LVIDs: 2.46 2.0-3.6 cm LVPWd: 0.69 0.7-1.1 cm LA Diam: 3.40 2.7-3.8/3.0-4.0 cm LAIDs Index: 1.78 1.5-2.3 cm/m2 LV Mass: 138.05 67-162/88-224 g LV Mass Index: 72.28 43-95/49-115 g/m2 LVOT Diam: 2.30 3.0+(-)1.3 cm 2D Systolic Function EF 4C: 55.70 >55% EF 2C: 73.50 >55% EF BiP: 65.40 >55% Mitral Valve MV Pk E: 0.71 MV PK A: 1.20 MV Decel Time: 192.00 E/A: 0.60 E'Medial: 5.00 E/E' Med: 14.20 PHT: 56.00 MVA PHT: 3.93 Decel Hunt: 3.70 Aortic Valve AoV Pk Aki: 0.98 AoV Pk Grad: 4.00 BRENNA: 3.30 LVOT LVOT Pk Aki: 0.78 LVOT Mn Aki: 0.54 LVOT VTI: 0.16 LVOT Pk Grad: 2.00 LVOT Mn Grad: 1.00 LVOT Diam: 2.30 LVOT Area: 4.15 Diastolic Function MV Pk E: 0.71 MV Pk A: 1.20 E/A: 0.60 E'Medial: 5.00 E/E' Med: 14.20 Right Ventricle TAPSE (mm): 17.50 TVS' Aki: 8.95 Tricuspid Valve RA Press: 3.00 Great Vessels Aorta Sinus of Valsalva: 3.10 2.0-3.5 cm Ao Asc: 3.40 2.1-3.4 cm Pulmonary Valve PV Pk Aki: 1.00 Peak PV Grad: 4.00 Updated in Other Vendor System with Status of Final Jorge Ornelas MD electronically signed on 01/17/2023 10:57:49 AM with status of Final
== END ==
LOC: HO.CARD 08:02
PROVIDERS: PCP Internal Medicine; Visit Provider Internal Medicine Cardiovascular Disease
DX: R00.1 Bradycardia, unspecified (principal); R06.02 Shortness of breath
CPT/HCPCS: 93242; 93306

== ENCOUNTER → 2023-01-16 08:04 | Outpatient (BNV) | payer MEDICARE, SELFPAY | PROVIDERS: PCP Internal Medicine; Visit Provider Internal Medicine Cardiovascular Disease | DX: I44.1 Atrioventricular block, second degree (principal) | CPT/HCPCS: 93244; 93306 ==

== ENCOUNTER → 2023-01-20 08:15 | Outpatient (REF) | payer MEDICARE, SELFPAY ==
--- NOTE | ~2023-01-20 | NM_ITS ---
Myocardial perfusion study Indication: Chest pain to evaluate for myocardial ischemia Technique: The patient was brought in for a Lexiscan perfusion study on 01/20/2023. Patient performed low-level exercise and was injected 0.4 mg of Lexiscan intravenously. Within a minute of injection, 30 mCi of sestamibi was given intravenously. Images were obtained using the SPECT gamma camera interlaced with the gating device. Images were obtained in supine position. Resting perfusion study was performed on 01/21/2023. Patient was administered 30 mCi of sestamibi intravenously at rest. Images were then obtained in supine position. Images obtained with and without CT attenuation. Total DLP 106 mGy-cm. Images were processed with the software and compared side to side in short axis, horizontal long axis and vertical long axis views. Findings: The stress perfusion study showed non attenuated images show very focal thinning of the distal lateral wall of the LV myocardium. Remainder of the LV myocardium is normally perfused. Attenuation corrected images show normal uptake of radiotracer in all segments of LV myocardium.. The gated study shows normal LV systolic function with calculated LVEF of 66%. LV cavity is normal size. The gated study shows normal systolic wall thickening and contraction of segments. Resting study shows non attenuated images show moderately reduced uptake in the distal lateral wall of the LV myocardium. Attenuation corrected images show mildly reduced uptake in the apex of the LV myocardium.. Gating at rest was not performed due to arrhythmia. The findings are consistent with normal myocardial perfusion. NM/NM cardiolite stress test Impression: 1. Myocardial perfusion imaging study shows normal myocardial 2. Gated LVEF is 66% 3. Transient ischemic dilatation not present EKG is nondiagnostic for ischemia
--- NOTE | 2023-01-20 08:17 | CA_ITS ---
Acquisition Time: 2023-01-20 08:25:35 Total Exercise Time: 00:02:43 Test Indications: SOB Medications: SEE H Protocol: JUAN Max HR: 125 BPM 91% of Pred: 137 BPM Max BP: 184/054 mmHG Max Work Load: 4.6 METS Exercise stress test exercise 2 min 43 sec of Juan protocol achieving 81% MPHR, with mopderate to severe SOB, no chest discomfort, without arrhythmias, with normal chronotropic response, with normotensive response to exercise, with nondiagnositic EKGs due to suboptimal test. Test changed to pharmacological stress test with Lexiscan. Pharmacogical stress test with Lexiscan injection while sitting and kicking his legs, without anginal symptoms, with isolated PVCs, with normotensive response to injection, with nondiagnositic EKGs. Aminophylline 75mg IVP given to reverse Lexiscan. Nuclear images pending. Test reviewed with Dr. Alcocer. Referred By: Jorge Ornelas Overread By: Symone Coombs
== END ==
LOC: HO.CARD 08:15
PROVIDERS: PCP Internal Medicine; Visit Provider Internal Medicine Cardiovascular Disease
DX: R07.9 Chest pain, unspecified (principal); R06.02 Shortness of breath
CPT/HCPCS: 78452; 93017; A9500; J0280; J2785

== ENCOUNTER → 2023-01-20 08:17 | Outpatient (BNV) | payer MEDICARE, SELFPAY | PROVIDERS: PCP Internal Medicine; Visit Provider Nurse Practitioner | DX: R06.02 Shortness of breath (principal) | CPT/HCPCS: 78452; 93016; 93018 ==

== ENCOUNTER 2023-01-28 14:48 | Outpatient (AMB) | payer MEDICARE, SELFPAY ==
--- NOTE | 2023-01-28 15:22 | MHC.OFFVIS ---
Intake Vital Signs 01/28/23 15:23 Height 5 ft 9 in Weight 171 lb 15.369 oz BMI 25.4 BP 124/62 Blood Pressure Location Lt brachial Position Sitting Pulse 79 Pulse Source Pulse Oximeter Intake Visit Reasons: f/up 3 day/ exc mibi NS Allergies No Known Allergies [No Known Allergies*] Allergy (Verified 01/28/23 15:26) Medication List - Last Reconciled 01/29/23 by Symone Coombs NP albuterol sulfate 90 mcg/actuation (ProAir HFA) 2 puffs inhalation Q4-6H PRN 60 days Breo Ellipta 100-25 mcg/dose (fluticasone furoate-vilanterol) 1 inh inhalation DAILY 90 days NS cetirizine 10 mg PO DAILY clopidogrel 75 mg PO DAILY famotidine 40 mg PO DAILY PRN finasteride 5 mg PO DAILY 90 days fluticasone propionate 50 mcg/actuation (Flonase Allergy Relief) 1 spray intranasal BID glipizide ER 5 mg PO DAILY guaifenesin ER (Mucinex) 600 mg PO BID lisinopril-hydrochlorothiazide 10-12.5 mg 1 tab PO DAILY simvastatin 40 mg PO DAILY HPI HPI Comments History of Present Illness Details 82-year-old male presents today to follow-up on test results. He had an echocardiogram, stress test with nuclear images, and a holter monitor. Echo showed 60-65% EF, holter heart sinus rhythm with a heart rate between 30-126 with 1st degree AV block mostly during sleep hours but some daytime episodes noted, and his stress test was normal. He reports SOB is about the same. Bradycardia has improved since he has been off propranolol. He reports having to take 2 hour naps most days as he hasnt been sleeping well. Denies lightheadedness, feeling faint, or chest pain. [facility] Medical History Hypersomnia Stroke COPD exacerbation COPD (chronic obstructive pulmonary disease) Allergic rhinitis Surgical History S/P tonsillectomy and adenoidectomy Hx of cholecystectomy History of appendectomy Family History Mother No problems noted. Father Heart disease Social History Alcohol intake: former Patient Tobacco Use Status: Former Tobacco user Quit Date: 2018 Years Smoked: 40 +/- Review of Systems Const Denies chills, Reports fatigue, Denies fever(s), Denies frequent falls, Denies weakness, Denies weight gain and Denies weight loss ENT Denies dizziness Card Denies chest pain, Denies chest pain at rest, Denies chest pain with activity, Denies rapid heart rate, Denies pedal edema, Denies edema, Denies leg edema, Denies lightheadedness, Denies palpitations, Denies dyspnea, Denies dyspnea on exertion and Denies orthopnea Resp Denies cough, Denies dyspnea and Denies dyspnea on exertion GI Denies hematochezia and Denies change in stool character Musc Denies abnormal gait, Reports limited range of motion, Denies muscle cramps, Denies muscle weakness, Denies numbness, Denies radiating pain into limb, Denies stiffness and Denies tingling Neuro Denies abnormal gait, Denies dizziness, Denies frequent falls, Denies numbness, Denies tingling and Denies weakness Endo Reports fatigue and Denies palpitations Physical Exam Vital Signs: Last Vital Signs Pulse 79 01/28/23 15:23 BP 124/62 01/28/23 15:23 BMI result Body Mass Index 25.4 Const General: healthy appearing and no acute distress Orientation/consciousness: patient oriented x3 HEENT Head: Yes normal to inspection Eyes General: appearance normal, both eyes and all related structures Neck Neck: Yes normal visual inspection Chest Chest palpation & inspection: normal inspection of the chest Resp Effort & Inspection: normal respiratory effort Auscultation: clear to auscultation bilaterally Cardio Jugular venous distension: no JVD Palpation: normal PMI Rate: regular rate Rhythm: regular rhythm Heart sounds: S1 normal heart sound present, S2 normal heart sound present, no click, no gallops, no murmurs and no rubs GI Inspection: Yes normal to inspection Palpation (GI): Soft to palpation Skin General skin exam: no rashes or lesions noted Neuro General: patient oriented x3 Extrem General: Yes normal to inspection Psych Appearance: grossly normal Assessment & Plan Assessment & Plan (1) Hypersomnia: Code(s): G47.10 - Hypersomnia, unspecified (2) SOB (shortness of breath) on exertion: Code(s): R06.02 - Shortness of breath Plan: Echo and stress test were normal. Will order a sleep study to evaluate his hypersomnia. Patient to report any new symptoms. Return in 3 months to meet with Dr. Ornelas. Coding Level of Care Code Est Pt Level 3 (03513) Diagnoses Hypersomnia G47.10 SOB (shortness of breath) on exertion R06.02
[2023-01-28 15:23] VITALS: BP 124/62; PULSE 79; BMI 25.4
== END 2023-01-28 15:49 | disposition home or self-care (01) ==
PROVIDERS: PCP Internal Medicine; Visit Provider Nurse Practitioner Family
DX: G47.10 Hypersomnia, unspecified (principal); R06.02 Shortness of breath
CPT/HCPCS: 99213

== ENCOUNTER → 2023-01-28 14:48 | Outpatient (BNVA) | payer MEDICARE, SELFPAY | PROVIDERS: PCP Internal Medicine; Visit Provider Nurse Practitioner Family | DX: G47.10 Hypersomnia, unspecified (principal); R06.02 Shortness of breath | CPT/HCPCS: 99212 ==

== ENCOUNTER 2023-02-05 10:11 | Outpatient (REF) | payer MEDICARE, SELFPAY ==
--- NOTE | ~2023-02-05 | US_ITS ---
EXAMINATION: Noninvasive assessment of the bilateral lower extremities with ARTERIAL DUPLEX and ANKLE BRACHIAL INDICES (ABIs). CLINICAL INFORMATION: Peripheral vascular disease TECHNIQUE: Duplex Doppler techniques with waveform analysis and measurement of velocities in the bilateral common femoral, profunda femoris, superficial femoral, popliteal and tibial arteries were performed. Additionally, ankle pulse volume recordings, ankle pressure measurements and ankle brachial indices were obtained of the lower extremity arterial system bilaterally. The study was performed only at rest. COMPARISON: 03/06/2022 FINDINGS: DIRECT DUPLEX DOPPLER FINDINGS: RIGHT LEG: Common femoral artery: 177 cm/s, phasicity: Biphasic. Mild calcified plaque Profunda femoris artery: 169 cm/s, phasicity: Biphasic Superficial femoral artery (proximal): 159 cm/s, phasicity: Biphasic Superficial femoral artery (mid): 144 cm/s, phasicity: Biphasic Superficial femoral artery (distal): 90.1 cm/s, phasicity: Biphasic Popliteal artery: 98.8 cm/s, phasicity: Biphasic Posterior tibial artery: 89.5 cm/s, phasicity: Biphasic Peroneal artery: 82.3 cm/s, phasicity: Biphasic Anterior tibial artery: 65.4 cm/s, phasicity: Biphasic Dorsalis pedis artery: 29.5 cm/s, phasicity:Biphasic LEFT LEG: Common femoral artery: 163 cm/s, phasicity: Triphasic Profunda femoris artery: 93.9 cm/s, phasicity: Biphasic Superficial femoral artery (proximal): 119 cm/s, phasicity: Biphasic Superficial femoral artery (mid): 112 cm/s, phasicity: Biphasic Superficial femoral artery (distal): 130 cm/s, phasicity: Biphasic Popliteal artery: 114 cm/s, phasicity: Biphasic Posterior tibial artery: 111 cm/s, phasicity: Biphasic Peroneal artery: 64.2 cm/s, phasicity: Biphasic Anterior tibial artery: 86.9 cm/s, phasicity: Biphasic Dorsalis pedis artery: 39.2 cm/s, phasicity: Monophasic ANKLE-BRACHIAL INDEX: Right: 1.02, previously 1.09? Left: 1.05, previously 1.01 ANKLE PRESSURES: Right: PT 153, DP not audible Left: PT?157, DP?148 ANKLE PVR WAVEFORMS: Right: Normal Left: Normal US/US arterial duplex LE BI IMPRESSION: Right leg: Normal ankle brachial index and PVR waveform. Patent arterial flow throughout to the right lower extremity arterial duplex Left leg: Normal ankle brachial index and PVR waveform. Patent arterial flow throughout to the left lower extremity arterial duplex FUNMI Reference: - >1.4 = calcified vessels - 0.9 - 1.4 = normal - no significant arterial disease - 0.7 - 0.89 = mild peripheral arterial disease - 0.51 - 0.69 = moderate peripheral arterial disease - ? 0.50 = severe peripheral arterial disease - < .30 = critical arterial disease
== END 2023-02-05 10:12 | disposition home or self-care (01) ==
LOC: HO.US 10:11
PROVIDERS: PCP Internal Medicine; Visit Provider Surgery Vascular Surgery
DX: I70.213 Atherosclerosis of native arteries of extremities with intermittent claudication, bilateral legs (principal)
CPT/HCPCS: 93923; 93925

== ENCOUNTER 2023-02-11 08:33 | Outpatient (REF) | payer MEDICARE, SELFPAY ==
[2023-02-11 11:29] LABS: Alanine Aminotransferase 16 U/L (0-40); Albumin Level 4.1 g/dL (3.5-5.0); Alkaline Phosphatase 82 U/L (39-117); Anion Gap 14 (12-20); Aspartate Amino Transferase 14 U/L (5-37); Bilirubin Total 0.3 mg/dL (0.0-1.0); Blood Urea Nitrogen 47 mg/dL (9-16); Calcium 9.6 mg/dL (8.4-10.2); Carbon Dioxide 21 mmol/L (22-29); Chloride 112 mmol/L (96-108); Estimated Average Glucose 131 mg/dL; Estimated Glomerular Filt Rate 41; Glucose Random 149 mg/dL (60-115); Hemoglobin A1c % 6.2 % (<6.0); Potassium 4.9 mmol/L (3.3-5.1); Sodium 142 mmol/L (135-145); Total Protein 7.1 g/dL (6.5-8.0)
[2023-02-11 11:51] LABS: PSA,Total (Free>4and<10) 13.22 ng/mL (0.00-4.00)
== END 2023-02-11 08:34 | disposition home or self-care (01) ==
LOC: HO.10HDL 08:33
PROVIDERS: Urology; Visit Provider Internal Medicine
DX: E11.22 Type 2 diabetes mellitus with diabetic chronic kidney disease (principal); N18.9 Chronic kidney disease, unspecified; G25.0 Essential tremor; Z86.73 Personal history of transient ischemic attack (TIA), and cerebral infarction without residual deficits; Z12.5 Encounter for screening for malignant neoplasm of prostate
CPT/HCPCS: 36415; 80053; 83036; 84153

== ENCOUNTER 2023-02-27 11:04 | Outpatient (AMB) | payer MEDICARE, SELFPAY ==
--- NOTE | 2023-02-27 11:37 | HO.NEPHOV_ITS ---
HPI HPI Comments History of Present Illness Details 82-year-old man with a history of longst anding hypertension and diabetes mellitus with CKD 3. He has a history of hyperkalemia back in April 2022. This was treated medically. He was using salt substitute while he was on lisinopril. Lisinopril has been placed on hold. Over the last few months serum potassium has been in the normal range. Baseline serum creatinine is around 1.5 mg/dL. He has a history of prostate cancer and is being followed by Dr. Beatty. He has a history of for shortness of breath on exertion. Seen by Dr. Ornelas. Echocardiogram was unremarkable. He underwent a stress test and results are pending. Also has history of COPD. Being followed by Dr. Luz He is scheduled for his sleep evaluation. [facility] Medical History Hypersomnia Stroke COPD exacerbation COPD (chronic obstructive pulmonary disease) Allergic rhinitis Surgical History S/P tonsillectomy and adenoidectomy Hx of cholecystectomy History of appendectomy Family History Mother No problems noted. Father Heart disease Social History Alcohol intake: former Patient Tobacco Use Status: Former Tobacco user Quit Date: 2017 Years Smoked: 40 +/- Vital Signs 02/27/23 11:39 Height 5 ft 9 in Weight 170 lb 2 oz BMI 25.1 BP 128/70 Blood Pressure Location Lt brachial Position Sitting Pulse 72 Pulse Source Pulse Oximeter Pulse Oximetry (%) 98 Oxygen Delivery Method Room Air Intake Medication List - Last Reconciled 02/27/23 by Clive Boykin MD albuterol sulfate 90 mcg/actuation (ProAir HFA) 2 puffs inhalation Q4-6H PRN 60 days Breo Ellipta 100-25 mcg/dose (fluticasone furoate-vilanterol) 1 inh inhalation DAILY 90 days NS cetirizine 10 mg PO DAILY clopidogrel 75 mg PO DAILY famotidine 40 mg PO DAILY PRN finasteride 5 mg PO DAILY 90 days fluticasone propionate 50 mcg/actuation (Flonase Allergy Relief) 1 spray intranasal BID glipizide ER 5 mg PO DAILY guaifenesin ER (Mucinex) 600 mg PO BID lisinopril-hydrochlorothiazide 10-12.5 mg 1 tab PO DAILY simvastatin 40 mg PO DAILY Physical Exam Vital Signs: Last Vital Signs Pulse 72 02/27/23 11:39 BP 128/70 02/27/23 11:39 Pulse Ox 98 02/27/23 11:39 Oxygen Delivery Method Room Air 02/27/23 11:39 BMI result Body Mass Index 25.1 Const General: comfortable Nutritional Appearance: well nourished Orientation/consciousness: patient oriented x3 HEENT Head: No normal to inspection Mouth: moist mucous membranes Neck Neck: Yes supple and Yes no JVD Resp Auscultation: clear to auscultation bilaterally, no rales and rub present Cardio Jugular venous distension: no JVD Palpation: no palpable S3 and no palpable S4 Heart sounds: no rubs GI Palpation (GI): Soft to palpation and nontender Percussion: No Fluid wave present General: Yes no CVA tenderness Back/Spine/Pelvis Back: no CVA tenderness Skin General skin exam: no rashes or lesions noted Neuro General: patient oriented x3 Motor exam (neuro): Tremors during motor activity present Extrem General: Yes no pedal edema and No clubbing Results Reviewed Results Reviewed: Lab results reviewed. Hemoglobin 12.5 Creatinine 1.5. Potassium 4.9. Assessment & Plan Assessment & Plan (1) CKD (chronic kidney disease) stage 3, GFR 30-59 ml/min: Code(s): N18.30 - Chronic kidney disease, stage 3 unspecified Plan: CKD in the setting of longstanding hypertension and diabetes mellitus. Renal function is close to baseline. He has stage IIIB CKD. Goal is to slow the progression of renal disease. Continue to avoid nephrotoxic agents including NSAIDs. Encouraged to stay on low-sodium diet. He will benefit from a SGLT 2 inhibitor (2) SOB (shortness of breath) on exertion: Code(s): R06.02 - Shortness of breath Plan: Multifactorial. Being evaluated by Cardiology and Pulmonary at this time. (3) Hyperkalemia: Code(s): E87.5 - Hyperkalemia Plan: In a setting of CKD. He should stay on low-potassium diet. Avoid salt substitutes. Chol monitor serum potassium periodically. Orders: Orders Electrolytes 4 Months N18.30 - Chronic kidney disease, stage 3 unspecified Blood Urea Nitrogen 4 Months N18.30 - Chronic kidney disease, stage 3 unspecified Creatinine 4 Months N18.30 - Chronic kidney disease, stage 3 unspecified Calcium 4 Months N18.30 - Chronic kidney disease, stage 3 unspecified Coding Level of Care Code Est Pt Level 4 (66309) Diagnoses CKD (chronic kidney disease) stage 3, GFR 30-59 ml/min N18.30 SOB (shortness of breath) on exertion R06.02 Hyperkalemia E87.5
[2023-02-27 11:39] VITALS: BP 128/70; PULSE 72; O2SAT 98; BMI 25.1
== END 2023-02-27 11:52 | disposition home or self-care (01) ==
PROVIDERS: PCP Internal Medicine; Visit Provider Internal Medicine Hypertension Specialist
DX: N18.30 Chronic kidney disease, stage 3 unspecified (principal); R06.02 Shortness of breath; E87.5 Hyperkalemia
CPT/HCPCS: 99214

== ENCOUNTER → 2023-02-27 11:04 | Outpatient (BNVA) | payer MEDICARE, SELFPAY | PROVIDERS: PCP Internal Medicine; Visit Provider Internal Medicine Hypertension Specialist | DX: N18.30 Chronic kidney disease, stage 3 unspecified (principal); E78.5 Hyperlipidemia, unspecified; R06.02 Shortness of breath | CPT/HCPCS: 99212 ==

== ENCOUNTER 2023-03-06 09:10 | Outpatient (AMB) | payer MEDICARE, SELFPAY ==
--- NOTE | 2023-03-06 09:19 | A.OFFVIS_ITS ---
Intake Intake Visit Reasons: 4m/PSA(set) Intake Note: Patient is Present for Follow Up PSA Urology Medication: Finasteride Antibiotic Allergies: None Blood Thinners: Plavix Compliants: None Allergies No Known Allergies [No Known Allergies*] Allergy (Verified 03/06/23 09:19) Medication List - Last Reconciled 03/06/23 by Gerson Beatty MD albuterol sulfate 90 mcg/actuation (ProAir HFA) 2 puffs inhalation Q4-6H PRN 60 days Breo Ellipta 100-25 mcg/dose (fluticasone furoate-vilanterol) 1 inh inhalation DAILY 90 days NS cetirizine 10 mg PO DAILY clopidogrel 75 mg PO DAILY famotidine 40 mg PO DAILY PRN finasteride 5 mg PO DAILY 90 days fluticasone propionate 50 mcg/actuation (Flonase Allergy Relief) 1 spray intranasal BID glipizide ER 5 mg PO DAILY guaifenesin ER (Mucinex) 600 mg PO BID lisinopril-hydrochlorothiazide 10-12.5 mg 1 tab PO DAILY simvastatin 40 mg PO DAILY HPI HPI Comments History of Present Illness Details Jhonny is a pleasant male. He is a patient of Dr. Darby. He seen for the following urologic conditions - prostate cancer Son Jefry is a part of the visit Continue progression of PSA despite finasteride PSA jumped to 13.2 - recommend GnRH therapy Recommend bone support during hormonal therapy with Citracal and vitamin-D Will be organized Prostate cancer 10/1123 grade group 3, low volume Prostate biopsy for elevated PSA - 9.6, free 14% 80 g prostate at time of TRUS, pT1c Meghan score:? 7 (4+3) (left apex lateral) 80% Periprostatic fat inv.: Not identified Seminal vesicle inv.: Not identified Perineural inv.: Not identified Lymphovascular invasion:?? Not identified PFSH Medical History Hypersomnia Stroke COPD exacerbation COPD (chronic obstructive pulmonary disease) Allergic rhinitis Surgical History S/P tonsillectomy and adenoidectomy Hx of cholecystectomy History of appendectomy Family History Mother No problems noted. Father Heart disease Social History Alcohol intake: former Patient Tobacco Use Status: Former Tobacco user Quit Date: 2017 Years Smoked: 40 +/- Review of Systems Const Denies chills and Denies fever(s) Card Reports no additional complaints and Denies syncope Resp Denies cough GI Denies abdominal pain and Denies heartburn Reports as per HPI and Denies change in libido Neuro Denies syncope Psych Denies change in libido Endo Denies change in libido Physical Exam Const General: cooperative, healthy appearing, comfortable and no acute distress Orientation/consciousness: patient oriented x3 HEENT Face and sinus: Yes normal facial exam Mouth: moist mucous membranes Neck Neck: Yes normal visual inspection, Yes full ROM and Yes trachea midline Chest Chest palpation & inspection: normal inspection of the chest Resp Effort & Inspection: normal respiratory effort, able to speak in complete sentences and no respiratory distress GI Inspection: Yes normal to inspection Back/Spine/Pelvis Cervical Spine: normal cervical lordosis Thoracic/Lumbar Spine: thoracic and lumbar spine normal to inspection Skin General skin exam: no rashes or lesions noted Neuro General: patient oriented x3, gait normal, tone normal and moves all extremities Extrem General: Yes normal to inspection and Yes capillary refill normal Assessment & Plan Assessment & Plan (1) Prostate cancer: Code(s): C61 - Malignant neoplasm of prostate Plan GnRH with nursing 2 weeks PSA and labs with Dr. Beatty 6 weeks Orders: Orders Prostate Specific Antigen 6 Weeks C61 - Malignant neoplasm of prostate Testosterone, Total 6 Weeks C61 - Malignant neoplasm of prostate Medications: Refilled finasteride 5 mg PO DAILY 90 tabs 1RF 90 days C61 - Malignant neoplasm of prostate, N13.8 - Other obstructive and reflux uropathy, N40.1 - Benign prostatic hyperplasia with lower urinary tract symptoms, R33.9 - Retention of urine, unspecified Patient Instructions: Imaging studies, laboratory and physical exam results were discussed and reviewed in detail. No major barriers to patient understanding were identified. An opportunity to ask questions regarding the treatment plan was provided. All questions were answered. The patient expressed understanding and agreement with the above treatment plan. The patient is aware they should contact our office by phone for worsening of their current condition or the appearance of new urologic symptoms. Compliance is encouraged with any medications and followup testing that is ordered. It is a privilege to participate in the urologic care of your patient. If you have any questions or concerns regarding treatment for the above conditions, or other urologic issues, please do not hesitate to contact me. The office telephone contact is [phone]. This note is constructed using voice recognition software. While every effort has been made to ensure accuracy senior enterprise architect errors may have been included. Yours sincerely, Dr Gerson Beatty MD, [facility] - Urology Providers of Expert, Compassionate Care for the Genitourinary System Coding Level of Care Code Est Pt Level 4 (41394) Diagnoses Prostate cancer C61
== END 2023-03-06 09:43 | disposition home or self-care (01) ==
PROVIDERS: PCP Internal Medicine; Visit Provider Urology
DX: C61 Malignant neoplasm of prostate (principal)
CPT/HCPCS: 99214

== ENCOUNTER → 2023-03-06 09:10 | Outpatient (BNVA) | payer MEDICARE, SELFPAY | PROVIDERS: PCP Internal Medicine; Visit Provider Urology | DX: C61 Malignant neoplasm of prostate (principal) | CPT/HCPCS: 99212 ==

== ENCOUNTER 2023-03-25 09:52 | Outpatient (AMB) | payer MEDICARE, SELFPAY ==
[2023-03-25 09:50] VITALS: BMI 25.1
--- NOTE | 2023-03-25 09:50 | A.OFFVIS_ITS ---
Intake Vital Signs 03/25/23 09:50 Height 5 ft 9 in Weight 170 lb BMI 25.1 Intake Visit Reasons: 1 yr follow up Art US 02/05/23 Intake Note: 1 yr follow up arterial US 02/05/23. Pt states he is doing well, no pain in bilateral LE, goes to podiatry every 3 months, no new ulcers or issues with toes. No discoloration or cramping Accompanied by: Son Allergies No Known Allergies [No Known Allergies*] Allergy (Verified 03/25/23 09:56) HPI 1 yr follow up Art US 02/05/23 HPI Details Very pleasant 82-year-old gentleman presents for follow-up evaluation regarding peripheral vascular disease. This entire workup began as he had a nonhealing left toenail. It has gone on to heal. He is doing significantly better. He has been seeing Podiatry on a regular basis every 3 months. He does have a history of COPD, diabetes, stroke, hypertension, and hyperlipidemia. He now presents for routine surveillance follow-up with noninvasive testing. Of note he has a diminished GFR of 41. [facility] Medical History Hypersomnia Stroke COPD exacerbation COPD (chronic obstructive pulmonary disease) Allergic rhinitis Surgical History S/P tonsillectomy and adenoidectomy Hx of cholecystectomy History of appendectomy Family History Mother No problems noted. Father Heart disease Social History Alcohol intake: former Patient Tobacco Use Status: Former Tobacco user Quit Date: 2017 Years Smoked: 40 +/- Review of Systems Const All systems reviewed & are unremarkable except as noted in HPI and below Reports no additional complaints ENT Reports Normal hearing present Card Denies chest pain, Denies chest pain at rest, Denies chest pain with activity and Denies pedal edema Resp Denies cough GI Denies abdominal pain Musc Denies abnormal gait, Denies muscle cramps and Denies radiating pain into limb Skin/Breast Denies skin ulcer and Denies wounds Neuro Reports Normal hearing present and Denies abnormal gait Psych Reports no additional complaints Physical Exam Vital Signs: BMI result Body Mass Index 25.1 Const General: cooperative, healthy appearing and comfortable Orientation/consciousness: oriented to person, oriented to place and oriented to time HEENT Head: Yes normal to inspection Neck Neck: Yes normal visual inspection Carotids: no bruits Chest Chest palpation & inspection: normal inspection of the chest Resp Effort & Inspection: normal respiratory effort and able to speak in complete sentences Auscultation: clear to auscultation bilaterally, no crackles, no rales, no rhonchi and no wheezes Cardio Other: Bilateral DP signals Rate: regular rate Rhythm: regular rhythm Heart sounds: S1 normal heart sound present and S2 normal heart sound present Bruits: no carotid bruits Peripheral pulses: Peripheral pulses 2+ throughout GI Inspection: Yes normal to inspection Skin Wounds: no wounds Hair: normal Neuro General: oriented to person, oriented to place and oriented to time Cranial nerves: Yes CN's II-XII intact bilaterally and Yes Normal hearing present Cognition (Neuro): normal cognition Motor exam (neuro): 5/5 motor strength present throughout Extrem Other: venous exam: No significant superficial varicosities or spider telangiectasias, minimal edema General: No clubbing, No cyanosis and No edema Psych Appearance: grossly normal Mental Status: mental status grossly normal Speech and movement: Normal speech and movement present Results Reviewed Results Reviewed: Noninvasive arterial testing dated 02/05/2023 demonstrates FUNMI on the right of 1.02 and on the left of 1.05. Assessment & Plan Assessment & Plan (1) PAD (peripheral artery disease): Code(s): I73.9 - Peripheral vascular disease, unspecified Plan: In short patient has stable claudication. I did review the pathophysiology of peripheral vascular disease with the patient. In addition we did discuss routine conservative measures including a healthy diet and the importance of exercise and ambulation. We did discuss risk factor modification. The patient will continue to to follow-up with surveillance follow-up in approximately 1 year. Thank you for allowing us to participate in this patient's care. If there are any questions or concerns please do not hesitate to contact us. (2) CKD (chronic kidney disease) stage 3, GFR 30-59 ml/min: Code(s): N18.30 - Chronic kidney disease, stage 3 unspecified Qualifiers: Chronic kidney disease stage 3 subtype: stage 3b (GFR 30-44) Qualified Code(s): N18.32 - Chronic kidney disease, stage 3b Plan: Continue Nephrology follow-up Orders: Orders US arterial duplex LE BI 364 Days I73.9 - Peripheral vascular disease, unspecified Coding Level of Care Code Est Pt Level 4 (83664) Diagnoses PAD (peripheral artery disease) I73.9 Stage 3b chronic kidney disease N18.32 Chronic kidney disease stage 3 subtype: stage 3b (GFR 30-44)
== END 2023-03-25 10:14 | disposition home or self-care (01) ==
PROVIDERS: PCP Internal Medicine; Visit Provider Surgery Vascular Surgery
DX: I73.9 Peripheral vascular disease, unspecified (principal); N18.32 Chronic kidney disease, stage 3b
CPT/HCPCS: 99213

== ENCOUNTER → 2023-03-25 09:52 | Outpatient (BNVA) | payer MEDICARE, SELFPAY | PROVIDERS: PCP Internal Medicine; Visit Provider Surgery Vascular Surgery | DX: I73.9 Peripheral vascular disease, unspecified (principal); N18.32 Chronic kidney disease, stage 3b | CPT/HCPCS: 96402; 99212; J9217 ==

== ENCOUNTER 2023-03-25 11:15 | Outpatient (AMB) | payer MEDICARE, SELFPAY ==
--- NOTE | 2023-03-25 11:17 | AM.OFFVISNUR ---
Intake Intake Visit Reasons: GnRH Allergies No Known Allergies [No Known Allergies*] Allergy (Verified 03/25/23 09:56) Office Meds Eligard (6 month) 45 mg (6 month) subcutaneous syringe Performing Provider: Gerson Beatty MD [place] [facility] [place] [facility] Administered by: Jada Ziegler RN on 03/25/23 11:17 Dose Route Admin Location Dispensed Lot Number Expiration Date [facility] Hoist Mechanic 45 mg subcut left arm 45 mg [id number] 02/20/24 04630-026-44 [place]. Coding Assessment & Plan Assessment & Plan Orders: Orders AMB Leuprolide Injection - Practice Supplied Today C61 - Malignant neoplasm of prostate
--- OUTSIDE RECORDS SUMMARY | 2023-03-25 11:17 | XMS_ITS | Patient Health Record ---
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 ) Referring Provider First Name Monica Referring Provider Last Name Wilner [facility] Aleksandar Referred Provider Fabricio Juan Referred Address [address] [facility],[place], [place],[address], Referred Provider Specialty Podiatry Referral Priority Routine MEDICATIONS Medication SIG (Take, Route, Frequency, Duration) Notes Start Date End Date Status immodium Active Famotidine 40 MG 1 tablet at bedtime Orally Once a day for 30 day(s) Active Extra Depth Orthopedic Shoes, (1) Pair With (3) Pair Custom Heat Molded Multidensity Innersoles Dx: NIDDM/PVD(E11.51), Hammertoe Foot Deformity(M20.41,M20.42) , Preulcerative Skin Lesion(s)(L85.1) Wear Daily for 365 days 02/04/2023 Active Sertraline HCl 25 MG 1 tablet Orally Onc e a day for 30 day(s) Active Clopidogrel Bisulfate 75 MG 1 tablet Orally Once a day for 30 day(s) Active Breo Ellipta 100-25 MCG/INH as directed Inhalation Activ e glipiZIDE 5 MG 1 tablet 30 minutes before breakfast Orally Once a day for 30 day(s) Active Ammonium Lactate 12 % 1 application [...] DM 30-600 MG as directed Orally Active SOCIAL HISTORY Tobacco Use: Social History [...] confirmed Acquired hammer toe of right foot (8437118021118 105) Problem Other hammer toe(s) (acquired), left foot (M20.42) Active confirmed Acquired hammer toe of left foot (2611966370415 103) Problem Plantar wart (B07.0) Active confirmed Plantar wart (00158498) Problem 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.51) Active confirmed Type 2 diabetes mellitus with peripheral angiopathy (430092496) VITAL SIGNS Height 5 ft 6 in in 02/04/2023 Weight 170 lbs 02/04/2023 BMI 27.44 kg/m2 02/04/2023 PROCEDURES Procedure Date Ordered Date Performed Result Body Sit e 70702-IFQSRHU NAIL, 1-5 05/07/2022 N/A 83161-Upze Destruction, 1-14 05/07/2022 N/A 49897-FUNG SKIN LESIONS, OVER 4 05/07/2022 N/A N4278-OZUVJFBI DYSTROPHIC NAILS ANY # 05/07/2022 N/A 71349-YBLLBYA NAIL, 1-5 08/13/2022 N/A 32579-Damq Destruction, 1-14 08/13/2022 N/A 61995-IAGG SKIN LESIONS, OVER 4 08/13/2022 N/A N8076-MECTPRUI DYSTROPHIC NAILS ANY # 08/13/2022 N/A 50153-LUWRCKD NAIL, 1-5 11/12/2022 N/A 83546-Hlmz Destruction, 1-14 11/12/2022 N/A 01316-DSDB SKIN LESIONS, OVER 4 11/12/2022 N/A Q3363-OUZGRQTG DYSTROPHIC NAILS ANY # 11/12/2022 N/A 46858-XVEYVCY NAIL, 1-5 02/04/2023 N/A 18162-Ujby Destruction, 1-14 02/04/2023 N/A 98796-MNQJ SKIN LESIONS, OVER 4 02/04/2023 N/A D4789-TBQHTWKA DYSTROPHIC NAILS ANY # 02/04/2023 N/A Encounters Encounter Location Date Provider Diagnosis [address] [address] [facility]23/[facility] [address] 05/07/2022 Fabricio Juan Type 2 diabetes mellitus with diabetic peripheral angiopathy without gangrene E11.51 ; Tinea unguium B35.1 ; Pain in right toe(s) M79.674 ; Pain in left toe(s) M79.675 ; Plantar wart B07.0 ; Pain in left foot M79.672 ; Other hammer toe(s) (acquired), right foot M20.41 and Other hammer toe(s) (acquired), left foot M20.[address] [address] 08/13/2022 Fabricio Juan Type 2 diabetes mellitus with diabetic peripheral angiopathy without gangrene E11.51 ; Tinea unguium B35.1 ; Pain in right toe(s) M79.674 ; Pain in left toe(s) M79.675 ; Plantar wart B07.0 ; Pain in left foot M79.672 and Xerosis cutis L85.[address] [address] 08/14/2022 Fabricio Juan Xerosis cutis L85.[address] [address] 11/12/2022 Fabricio Juan Type 2 diabetes mellitus with diabetic peripheral angiopathy without gangrene E11.51 ; Tinea unguium B35.1 ; Pain in right toe(s) M79.674 ; Pain in left toe(s) M79.675 ; Plantar wart B07.0 ; Pain in left foot M79.672 and Xerosis cutis L85.[address] [address] 02/04/2023 Fabricio Juan Type 2 diabetes mellitus with diabetic peripheral angiopathy without gangrene E11.51 ; Tinea unguium B35.1 ; Pain in right toe(s) M79.674 ; Pain in left toe(s) M79.675 ; Plantar wart B07.0 ; Left foot pain M79.672 ; Other hammer toe(s) (acquired), right foot M20.41 and Other hammer toe(s) (acquired), left foot M20.42 ASSESSMENTS Encounter Date Diagnosis Assessment Notes Treatment Notes Treatment Clinical Notes 05/07/2022 Tinea unguium (ICD-10 - B35.1) 05/07/2022 Type 2 diabetes mellitus with diabetic peripheral angiopathy without gangrene (ICD-10 - E11.51) 08/13/2022 Tinea unguium (ICD-10 - B35.1) 08/13/2022 Type 2 diabetes mellitus with diabetic peripheral angiopathy without gangrene (ICD-10 - E11.51) 08/14/2022 Xerosis cutis (ICD-10 - L85.3) 11/12/2022 Tinea unguium (ICD-10 - B35.1) 11/12/2022 Type 2 diabetes mellitus with diabetic peripheral angiopathy without gangrene (ICD-10 - E11.51) 02/04/2023 Tinea unguium (ICD-10 - B35.1) 02/04/2023 Type 2 diabetes mellitus with diabetic peripheral angiopathy without gangrene (ICD-10 - E11.51) 02/04/2023 Pain in right toe(s) (ICD-10 - M79.674) 11/12/2022 Pain in right toe(s) (ICD-10 - M79.674) 08/13/2022 Pain in right toe(s) (ICD-10 - M79.674) 05/07/2022 Pain in right toe(s) (ICD-10 - M79.674) 05/07/2022 Pain in left toe(s) (ICD-10 - M79.675) 08/13/2022 Pain in left toe(s) (ICD-10 - M79.675) 11/12/2022 Pain in left toe(s) (ICD-10 - M79.675) 02/04/2023 Pain in left toe(s) (ICD-10 - M79.675) 08/13/2022 Plantar wart (ICD-10 - B07.0) 11/12/2022 Plantar wart (ICD-10 - B07.0) 05/07/2022 Plantar wart (ICD-10 - B07.0) 02/04/2023 Plantar wart (ICD-10 - B07.0) 02/04/2023 Left foot pain (ICD-10 - M79.672) 05/07/2022 Pain in left foot (ICD-10 - M79.672) 11/12/2022 Pain in left foot (ICD-10 - M79.672) 08/13/2022 Pain in left foot (ICD-10 - M79.672) 11/12/2022 Xerosis cutis (ICD-10 - L85.3) 02/04/2023 Other hammer toe(s) (acquired), right foot (ICD-10 - M20.41) Patient Educated with: DIABETIC FOOT CARE INSTRUCTIONS.pdf (DIABETIC FOOT CARE INSTRUCTIONS.pdf) 05/07/2022 Other hammer toe(s) (acquired), right foot (ICD-10 - M20.41) 05/07/2022 Other hammer toe(s) (acquired), left foot (ICD-10 - M20.42) 02/04/2023 Other hammer toe(s) (acquired), left foot (ICD-10 - M20.42) 08/13/2022 Xerosis cutis (ICD-10 - L85.3) PLAN OF TREATMENT Pending Test Test Name Order Date X ray : Foot, left 3V 02/06/2022 38896-KKWIBLE NAIL, 1-5 05/07/2022 82882-JHVZBIW NAIL, 1-5 08/13/2022 52543-NRDDMFN NAIL, 1-5 11/12/2022 59772-AAMNKXY NAIL, 1-5 02/04/2023 63397-IYSFMQX NAIL, 1-5 01/21/2022 01674-Rkzl Destruction, 1-14 01/21/2022 64499-Gxdy Destruction, 1-14 02/04/2023 59031-Mzub Destruction, 1-14 11/12/2022 98194-Lllq Destruction, 1-14 08/13/2022 31656-Xyeo Destruction, 1-14 05/07/2022 98741-BYOS SKIN LESIONS, OVER 4 05/07/19 23 34767-RAQH SKIN LESIONS, OVER 4 08/14/19 23 31308-FNDK SKIN LESIONS, OVER 4 11/13/19 23 06827-EZFE SKIN LESIONS, OVER 4 02/05/20 23 91128-JQEK SKIN LESIONS, OVER 4 01/22/20 22 H1886-MCLSDEKD DYSTROPHIC NAILS ANY # O1301-LDVQWFVC DYSTROPHIC NAILS ANY # W1448-TRRCOGYU DYSTROPHIC NAILS ANY # W7891-ILCAFXEZ DYSTROPHIC NAILS ANY # T4325-JLPRRYEL DYSTROPHIC NAILS ANY # Next Appt Details Provider Name:Fabricio Yi Yessica , 05/06/2023 01:30:00 PM, [address] [place] [address], [phone], Insurance Providers Payer Name Payer Address Payer Phone Subscriber Number Group Number Insured Name Patient Relationship to Insured Coverage Start Date Coverage End Date [employer] Preferred [address] [place] [address] [id number] Jhonny Shrestha Self - patient is the insured MEDICAL (GENERAL) HISTORY Medical History History ICD Code asthma Diabetic type ll Lung disease Parkinsons disease Stroke Chicken pox COPD Colon CA Surgical History Surgery Date(Month/Year) appendectomy gall bladder Hospitalization History Reason Date(Month/Year) Ultrasound both legs for veins 2021
--- OUTSIDE RECORDS SUMMARY | 2023-03-25 11:17 | XMS_ITS | Patient Health Record ---
Author Name Unknown Organization [facility] Address [address] [place] [address] Care Team Providers Care Disability Examiner Name Role Phone Kandice WATOSN, Elías Primary Care Provider UnavailJulio Cesar Ba Unavailable [phone] REASON FOR REFERRAL No Information MEDICATIONS Medication SIG (Take, Route, Frequency, Duration) Notes Start Date End Date Status Sertraline HCl 25 MG 1 tablet Orally Onc e a day for 30 day(s) Active Aspir-Low 81 MG 1 tablet Orally Once a day for 30 day(s) Not-Taking Clopidogrel Bisulfate 75 MG 1 tablet Orally Once a day for 30 day(s) Active Famotidine 40 MG 1 tablet Orally Once a day Active metFORMIN HCl 500 MG 1am and 2pmtablet w ith a meal Orally as directed Active glipiZIDE 5 MG 1 tablet Orally Once a day Active Mucinex DM 30-600 MG 1 tablet as needed Orally every 12 hrs Active Imodium A-D 2 MG 1 tablet as needed Orally prn prn Active Breo Ellipta 100-25 MCG/INH 1 puff Inhalation Once a day Active Omeprazole 20 MG 1 capsule Orally Onc e a day Not-Taking ZyrTEC Allergy 10 MG 1 tablet Orally Onc e a day for 30 day(s) Active metroNIDAZOLE Active Simvastatin 40 MG 1 tablet in the evening Orally Once a day Active Dicyclomine HCl Acti ve Lisinopril 5 MG 1 tablet Orally Once a day for 30 day(s) Active IMMUNIZATIONS Vaccine Route Administration Date Status Comme nts Influenza Unknown 01/28/2018 Administered Influenza Unknown 12/20/2018 Administered Influenza Unknown 12/29/2019 Administered SOCIAL HISTORY Tobacco Use: Social History Observation Description Date Details (start date - stop date) Former Smoker NA - NA Sex Assigned At : Social History Observation Description Sex Assigned At Unknown Tobacco Use/Smoking Question Answer Notes Patient is a former smoker How long has it been since you last smoked? 1-5 years Alcohol Screen Question Answer Notes Did you have a drink contain ing alcohol in the past year? Yes How often did you have a dri nk containing alcohol in the past year? Monthly or less (1 point) How often did you have 6 or more drinks on one occasion in the past year? 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) Active confirmed 542505957 PLAN OF TREATMENT Pending Test Test Name Order Date IRON + IBC (FE) 08/25/2018 IRON + IBC (FE) 05/20/2019 IRON + IBC (FE) 09/28/2018 FERRITIN 08/25/2018 FERRITIN 05/20/2019 FERRITIN 09/28/2018 CBC w DIFF 09/28/2018 CBC w DIFF 08/25/2018 CBC w DIFF 05/20/2019 Insurance Providers Payer Name Payer Address Payer Phone Subscriber Number Group Number Insured Name Patient Relationship to Insured Coverage Start Date Coverage End Date [employer] P[employer]ED [address] [place] [address] [id number] LOPEZ CASEY Self - patient is the insured MEDICAL (GENERAL) HISTORY Medical History History ICD Code Stroke 01/2018 and another 2004 NIDDM Hypertension Asthma COPD Denies [place],renal disease Iron deficiency anemia-he wa s hospitalized in August of 2018 with a hemoglobin of 6 and iron deficiency. He underwent an upper endoscopy and colonoscopy. The colonoscopy was normal and the upper endoscopy revealed a small nonbleeding gastric angiodysplasias and a small hiatal hernia. Duodenal biopsies were not obtained as he had been on Plavix and aspirin, but the duodenal villi and mucosa appeared normal. He was started on iron at that time. He did have a negative small bowel video capsule study subsequent to that hospitalization in August as well. Surgical History Surgery Date(Month/Year) Appendectomy cholecystectomy adnoidectomy
== END 2023-03-25 11:40 | disposition home or self-care (01) ==
LOC: HO.HUSH 11:16
PROVIDERS: PCP Internal Medicine; Visit Provider Urology
DX: C61 Malignant neoplasm of prostate (principal)

== ENCOUNTER 2023-04-08 09:28 | Outpatient (AMB) | payer MEDICARE, SELFPAY ==
[2023-04-08 09:42] VITALS: BP 124/68; PULSE 91; O2SAT 97; BMI 25.7
--- NOTE | 2023-04-08 09:42 | A.OFFVIS_ITS ---
Intake Vital Signs 04/08/23 09:42 Height 5 ft 9 in Weight 174 lb 2.643 oz BMI 25.7 BP 124/68 Blood Pressure Location Lt brachial Position Sitting Pulse 91 Pulse Source Pulse Oximeter Pulse Oximetry (%) 97 Oxygen Delivery Method Room Air Intake Visit Reasons: copd Intake Note: pt is here for follow up and states his breathing but he has something to eat and he starts coughing and continues for a while, he is being tx right now by injections for prostate cancer and pills also. Law Office Receptionist Required: No Allergies No Known Allergies [No Known Allergies*] Allergy (Verified 04/08/23 09:56) Medication List - Last Reconciled 04/08/23 by Dov Luz MD albuterol sulfate 90 mcg/actuation (ProAir HFA) 2 puffs inhalation Q4-6H PRN 60 days Breo Ellipta 100-25 mcg/dose (fluticasone furoate-vilanterol) 1 inh inhalation DAILY 90 days NS cetirizine 10 mg PO DAILY clopidogrel 75 mg PO DAILY famotidine 40 mg PO DAILY PRN finasteride 5 mg PO DAILY 90 days fluticasone propionate 50 mcg/actuation (Flonase Allergy Relief) 1 spray intranasal BID glipizide ER 5 mg PO DAILY guaifenesin ER (Mucinex) 600 mg PO BID lisinopril-hydrochlorothiazide 10-12.5 mg 1 tab PO DAILY propranolol 60 mg PO BID sertraline 25 mg PO DAILY simvastatin 40 mg PO DAILY Do you need a note to return to daycare/school/sports/work: No HPI copd HPI Details 82 years old gentleman, comes after 6 mo [facility] for follow-up for his COPD and allergic rhinitis. Breathing has remained fairly stable. He continues to have mild nasal congestion almost on a daily basis, and he continues to have intermittent cough but no wheezing. Currently he is using Spiriva Respimat ( sample ) as he is in a DONUT HOLE and could not afford to buy BREO ELLIPTA out of his pocket. He has had no respiratory infection or exacerbation . Is being treated for prostate cancer, and peripheral vascular disease. [facility] Medical History Hypersomnia Stroke COPD exacerbation COPD (chronic obstructive pulmonary disease) Allergic rhinitis Surgical History S/P tonsillectomy and adenoidectomy Hx of cholecystectomy History of appendectomy Family History Mother No problems noted. Father Heart disease Social History Alcohol intake: former Patient Tobacco Use Status: Former Tobacco user Quit Date: 2017 Years Smoked: 40 +/- Review of Systems Const All systems reviewed & are unremarkable except as noted in HPI and below Eyes Reports no additional complaints ENT Denies vertigo, Denies dizziness and Reports nasal congestion (Mild int ermittent) Card Denies chest pain, Denies irregular heart rhythm and Denies leg edema Resp Reports as per HPI GI Reports no additional complaints Reports no additional complaints Musc Reports no additional complaints Skin/Breast Reports system reviewed and no additional complaints, except as documented Neuro Denies vertigo and Denies dizziness Psych Reports no additional complaints Endo Reports no additional complaints Physical Exam Vital Signs: Last Vital Signs Pulse 91 04/08/23 09:42 BP 124/68 04/08/23 09:42 Pulse Ox 97 04/08/23 09:42 Oxygen Delivery Method Room Air 04/08/23 09:42 BMI result Body Mass Index 25.7 Const General: healthy appearing, comfortable, no acute distress, alert and awake Orientation/consciousness: patient oriented x3 HEENT Head: Yes normal to inspection General nose exam: No nasal polyps present and No nasal discharge present Face and sinus: Yes sinuses nontender Mouth: oropharynx normal Throat: Yes posterior oropharynx normal (There is some a whitish mucus in the nasopharynx) Eyes General: appearance normal, both eyes and all related structures Neck Neck: Yes normal visual inspection, Yes no lymphadenopathy, Yes trachea midline and Yes no JVD Thyroid: Thyroid normal Chest Chest palpation & inspection: normal inspection of the chest, normal palpation of entire chest wall and no tenderness Resp Other: Percussion note resonant, breath sounds are distant with prolonged expiratory phase. But both lungs are clear without wheezes crepitations or rhonchi . Cardio Palpation: normal PMI Rate: regular rate Rhythm: regular rhythm Heart sounds: no gallops and no murmurs Peripheral pulses: Peripheral pulses 2+ throughout GI Palpation (GI): Soft to palpation, nontender, No hepatosplenomegaly present and no masses Auscultation: normal bowel sounds Back/Spine/Pelvis Thoracic/Lumbar Spine: thoracic and lumbar spine normal to inspection and thoraco-lumbar ROM limited Skin General skin exam: no rashes or lesions noted Neuro General: patient oriented x3 and no focal motor deficits Cranial nerves: Yes CN's II-XII intact bilaterally Extrem General: Yes normal to inspection, Yes no clubbing, cyanosis or edema and Yes no calf tenderness Psych Appearance: grossly normal and well kempt Speech and movement: Normal speech and movement present Assessment & Plan Assessment & Plan (1) COPD (chronic obstructive pulmonary disease): Comment: COPD REMAINS VERY STABLE . Code(s): J44.9 - Chronic obstructive pulmonary disease, unspecified Plan: [place] : BREO-100/25 ONE INH DAILY PROAIR PUFFS Q 6 HRS PRN MUCINEX 600 MG OTC BID PRN . (2) Allergic rhinitis: Comment: MILD , REMAINS WELL CONTROLLED . Code(s): J30.9 - Allergic rhinitis, unspecified Plan: FLONASE -50 ONE SPRAY IN EACH NOSTRIL DAILY MAY USE LORATDINE 10 MG OR CETRAZINE 10 MG ONCE A DAY PRN Coding Level of Care Code Est Pt Level 3 (14157) Diagnoses COPD (chronic obstructive pulmonary disease) J44.9 Allergic rhinitis J30.9
== END 2023-04-08 09:58 | disposition home or self-care (01) ==
PROVIDERS: PCP Internal Medicine; Visit Provider Internal Medicine
DX: J44.9 Chronic obstructive pulmonary disease, unspecified (principal); J30.9 Allergic rhinitis, unspecified
CPT/HCPCS: 99213

== ENCOUNTER → 2023-04-08 09:28 | Outpatient (BNVA) | payer MEDICARE, SELFPAY | PROVIDERS: PCP Internal Medicine; Visit Provider Internal Medicine | DX: J44.9 Chronic obstructive pulmonary disease, unspecified (principal); J30.9 Allergic rhinitis, unspecified | CPT/HCPCS: 99212 ==

== ENCOUNTER 2023-04-23 07:35 | Outpatient (REF) | payer MEDICARE, SELFPAY ==
[2023-04-23 10:19] LABS: Prostate Specific Antigen 3.97 ng/mL (<0.05-4.0)
[2023-04-29 13:18] LABS: Testosterone, Total 11 ng/dL (250-1100)
== END 2023-04-23 07:36 | disposition home or self-care (01) ==
LOC: HO.LAB 07:35
PROVIDERS: Visit Provider Urology
DX: C61 Malignant neoplasm of prostate (principal); Z12.5 Encounter for screening for malignant neoplasm of prostate
CPT/HCPCS: 36415; 84153; 84403

== ENCOUNTER 2023-05-06 09:51 | Outpatient (AMB) | payer MEDICARE, SELFPAY ==
--- NOTE | 2023-05-06 10:02 | A.OFFVIS_ITS ---
Intake Vital Signs 05/06/23 10:03 Height 5 ft 9 in Weight 174 lb 2.643 oz BMI 25.7 BP 116/74 Blood Pressure Location Lt brachial Position Sitting Pulse 84 Intake Visit Reasons: 3 mth f/up Intake Note: 3 month follow-up feeling good Machine Bunch Maker Required: No Professor Of Economics: Professor Of Economics Present Accompanied by: Spouse Allergies No Known Allergies [No Known Allergies*] Allergy (Verified 04/08/23 09:56) Medication List - Last Reconciled 05/06/23 by Jorge Ornelas MD albuterol sulfate 90 mcg/actuation (ProAir HFA) 2 puffs inhalation Q4-6H PRN 60 days Breo Ellipta 100-25 mcg/dose (fluticasone furoate-vilanterol) 1 inh inhalation DAILY 90 days NS cetirizine 10 mg PO DAILY famotidine 40 mg PO DAILY PRN finasteride 5 mg PO DAILY 90 days fluticasone propionate 50 mcg/actuation (Flonase Allergy Relief) 1 spray intranasal BID glipizide ER 5 mg PO DAILY guaifenesin ER (Mucinex) 600 mg PO BID lisinopril-hydrochlorothiazide 10-12.5 mg 1 tab PO DAILY pantoprazole 40 mg PO DAILY sertraline 25 mg PO DAILY simvastatin 40 mg PO DAILY HPI HPI Comments History of Present Illness Details Jhonny comes for follow-up. Patient has had no syncopal episode or lightheadedness. Stress test showed good chronotropic competence with achieving 81% of age maximum heart rate with low exercise capacity related to COPD getting severely short of breath. No evidence of myocardial ischemia. Normal LV systolic function. Holter monitor does show evidence of slow heart rate and occasional Mobitz type 1 second-degree AV block. He is currently off all rate lowering medications. No exertional chest pain. [facility] Medical History Hypersomnia Stroke COPD exacerbation COPD (chronic obstructive pulmonary disease) Allergic rhinitis Surgical History S/P tonsillectomy and adenoidectomy Hx of cholecystectomy History of appendectomy Family History Mother No problems noted. Father Heart disease Social History Alcohol intake: former Patient Tobacco Use Status: Former Tobacco user Quit Date: 2017 Years Smoked: 40 +/- Review of Systems Const Denies chills, Denies fatigue, Denies fever(s), Denies frequent falls, Denies weakness, Denies weight gain and Denies weight loss ENT Denies dizziness Card Denies chest pain, Denies leg edema, Denies lightheadedness, Denies palpitations, Denies dyspnea, Denies dyspnea on exertion, Denies orthopnea and Denies other (loss of consciousness) Resp Denies cough, Denies dyspnea and Denies dyspnea on exertion GI Denies hematochezia and Denies change in stool character Musc Denies abnormal gait, Denies muscle weakness, Denies numbness, Denies radiating pain into limb and Denies tingling Neuro Denies Abnormal speech present, Denies abnormal gait, Denies dizziness, Denies frequent falls, Denies numbness, Denies tingling and Denies weakness Endo Denies fatigue and Denies palpitations Physical Exam Vital Signs: Last Vital Signs Pulse 84 05/06/23 10:03 BP 116/74 05/06/23 10:03 BMI result Body Mass Index 25.7 Const General: cooperative, comfortable, no acute distress, alert and awake Nutritional Appearance: average body habitus Orientation/consciousness: patient oriented x3 Limitations: no limitations HEENT Head: Yes normocephalic and Yes atraumatic Neck Neck: Yes trachea midline, Yes supple and Yes no JVD Resp Effort & Inspection: normal respiratory effort Auscultation: clear to auscultation bilaterally and diminished lung sounds Cardio Jugular venous distension: no JVD Palpation: normal PMI Rate: regular rate Rhythm: regular rhythm Heart sounds: S1 normal heart sound present, S2 normal heart sound present, no click, no gallops, no murmurs and no rubs GI Auscultation: normal bowel sounds Skin General skin exam: no rashes or lesions noted Neuro General: patient oriented x3 and no focal motor deficits Speech: No Abnormal speech present Extrem General: Yes no clubbing, cyanosis or edema Assessment & Plan Assessment & Plan (1) Sinoatrial node dysfunction: Code(s): I49.5 - Sick sinus syndrome Plan: Patient does have evidence of sick sinus syndrome or sinoatrial suhail dysfunction. However he has no indication for pacing therapy. Would avoid all rate lowering medications in the future including medications such as eyedrops which can slow his heart rate down. This was discussed with him. He is more aware of it. He has good chronotropic competence with exercise and his shortness of breath currently is not related to sinoatrial suhail dysfunction. (2) PAD (peripheral artery disease): Code(s): I73.9 - Peripheral vascular disease, unspecified Plan: Patient with PAC and prior stroke. Continue aggressive risk factor modification. Currently on Plavix. Continue aggressive lipid modification with goal LDL less than 70 mg/dL. Continue aggressive management diabetes. Blood pressure is currently well optimized advised to monitor blood pressure at home maintain a log. Goal blood pressure less than 130/84. Will follow up in the clinic in 1 year's time after Holter monitor. Thank you for allowing me to partake in his care Coding Level of Care Code Est Pt Level 4 (11150) Diagnoses Sinoatrial node dysfunction I49.5 PAD (peripheral artery disease) I73.9
[2023-05-06 10:03] VITALS: BP 116/74; PULSE 84; BMI 25.7
== END 2023-05-06 10:33 | disposition home or self-care (01) ==
PROVIDERS: PCP Internal Medicine; Visit Provider Internal Medicine Cardiovascular Disease
DX: I49.5 Sick sinus syndrome (principal); I73.9 Peripheral vascular disease, unspecified
CPT/HCPCS: 99214

== ENCOUNTER → 2023-05-06 09:51 | Outpatient (BNVA) | payer MEDICARE, SELFPAY | PROVIDERS: PCP Internal Medicine; Visit Provider Internal Medicine Cardiovascular Disease | DX: I49.5 Sick sinus syndrome (principal); I73.9 Peripheral vascular disease, unspecified; Z79.02 Long term (current) use of antithrombotics/antiplatelets | CPT/HCPCS: 99212 ==

== ENCOUNTER 2023-05-07 14:02 | Outpatient (AMB) | payer MEDICARE, SELFPAY ==
--- NOTE | 2023-05-07 14:04 | MHC.OFFVIS ---
Intake Intake Visit Reasons: 6W PSA/Testo(set) Intake Note: Patient is Present for Telephone Follow Up Labs Urology Med: Finasteride Antibiotic Allergy: None Blood Thinner: None Allergies No Known Allergies [No Known Allergies*] Allergy (Verified 04/08/23 09:56) Medication List - Last Reconciled 05/07/23 by Gerson Beatty MD albuterol sulfate 90 mcg/actuation (ProAir HFA) 2 puffs inhalation Q4-6H PRN 60 days Breo Ellipta 100-25 mcg/dose (fluticasone furoate-vilanterol) 1 inh inhalation DAILY 90 days NS cetirizine 10 mg PO DAILY famotidine 40 mg PO DAILY PRN finasteride 5 mg PO DAILY 90 days fluticasone propionate 50 mcg/actuation (Flonase Allergy Relief) 1 spray intranasal BID glipizide ER 5 mg PO DAILY guaifenesin ER (Mucinex) 600 mg PO BID lisinopril-hydrochlorothiazide 10-12.5 mg 1 tab PO DAILY pantoprazole 40 mg PO DAILY sertraline 25 mg PO DAILY simvastatin 40 mg PO DAILY HPI HPI Comments History of Present Illness Details Jhonny is a pleasant male. He is a patient of Dr. Darby. He seen for the following urologic conditions - prostate cancer Telemedicine Evaluation 15 min Consultation Doximity Chanel Video attempted Son Jefry is a part of the visit Good response to GnRH therapy. Plan for 18 month course. Recommend bone support during hormonal therapy with Citracal and vitamin-D PSA 02/10 13.2, 05/14 3.9 T 1.6 GnRH 04/12 Prostate cancer 10/1123 grade group 3, low volume Prostate biopsy for elevated PSA - 9.6, free 14% 80 g prostate at time of TRUS, pT1c Mobile score:? 7 (4+3) (left apex lateral) 80% Periprostatic fat inv.: Not identified Seminal vesicle inv.: Not identified Perineural inv.: Not identified Lymphovascular invasion:?? Not identified PFSH Medical History Hypersomnia Stroke COPD exacerbation COPD (chronic obstructive pulmonary disease) Allergic rhinitis Surgical History S/P tonsillectomy and adenoidectomy Hx of cholecystectomy History of appendectomy Family History Mother No problems noted. Father Heart disease Social History Alcohol intake: former Patient Tobacco Use Status: Former Tobacco user Quit Date: 2017 Years Smoked: 40 +/- Review of Systems Const All systems reviewed & are unremarkable except as noted in HPI and below Reports no additional complaints Resp Reports no additional complaints GI Reports no additional complaints Reports as per HPI Musc Reports no additional complaints Physical Exam Telemedicine evaluation Appropriate responses Regular breathing rate and rhythm HEENT Head: Yes normal to inspection Ears: hearing grossly normal bilaterally Eyes General: appearance normal, both eyes and all related structures Neck Neck: Yes normal visual inspection Chest Chest palpation & inspection: normal inspection of the chest Resp Effort & Inspection: normal respiratory effort and able to speak in complete sentences Assessment & Plan Assessment & Plan (1) Prostate cancer: Code(s): C61 - Malignant neoplasm of prostate Plan Three month follow-up labs tele Orders: Orders Prostate Specific Antigen 3 Months C61 - Malignant neoplasm of prostate Testosterone, Total 3 Months C61 - Malignant neoplasm of prostate Patient Instructions: Imaging studies, laboratory and physical exam results were discussed and reviewed in detail. No major barriers to patient understanding were identified. An opportunity to ask questions regarding the treatment plan was provided. All questions were answered. The patient expressed understanding and agreement with the above treatment plan. The patient is aware they should contact our office by phone for worsening of their current condition or the appearance of new urologic symptoms. Compliance is encouraged with any medications and followup testing that is ordered. It is a privilege to participate in the urologic care of your patient. If you have any questions or concerns regarding treatment for the above conditions, or other urologic issues, please do not hesitate to contact me. The office telephone contact is [phone]. This note is constructed using voice recognition software. While every effort has been made to ensure accuracy plisse machine operator helper errors may have been included. Yours sincerely, Dr Gerson Beatty MD, [facility] - Urology Providers of Expert, Compassionate Care for the Genitourinary System Telehealth Telehealth Location of provider rendering services: practice address Location of patient: address on file Patient Identification confirmed using: Name, : Yes Telehealth method: video Patient verbally consented to treatment: Yes Patient verbally consented to billing insurance company: Yes Patient informed of any privacy concerns related to visit: Yes Coding Level of Care Code Tele Est Pt Level 3 (98085) Diagnoses Prostate cancer C61
--- OUTSIDE RECORDS SUMMARY | 2023-05-07 14:04 | XMS_ITS | Patient Health Record ---
Author Name Unknown [facility] Jasbir xander Aleksandar Address [address] [place] [address] Care Team Providers Care Senior C Software Engineer Name Role Phone Monica Darby Primary Care Provider Unavailab Fabricio Granados Unavailable [phone] ALLERGIES No Known Allergies REASON FOR REFERRAL [...] Monica Referring Provider Last Name Wilner Referred [facility] Aleksandar Referred Provider Fabricio Juan Referred Address [address] [facility],[place], [place],[address], Referred Provider Specialty Podiatry Referral Priority Routine [...] confirmed Acquired hammer toe of right foot (4106031438427 105) Problem Other hammer toe(s) (acquired), left foot (M20.42) Active confirmed Acquired hammer toe of left foot (0217620439782 103) Problem Plantar wart (B07.0) Active confirmed Plantar wart (64865671) Problem 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.51) Active confirmed Type 2 diabetes mellitus with peripheral angiopathy (867301446) VITAL SIGNS Height 5 ft 6 in in 02/04/2023 Weight 170 lbs 02/04/2023 BMI 27.44 kg/m2 02/04/2023 PROCEDURES Procedure Date Ordered Date Performed Result Body Sit e 79549-UYMYLFM NAIL, 1-5 05/07/2022 N/A 06199-Ctsl Destruction, 1-14 05/07/2022 N/A 99204-AFFD SKIN LESIONS, OVER 4 05/07/2022 N/A S2912-XWBECUBK DYSTROPHIC NAILS ANY # 05/07/2022 N/A 63002-MIHKBIC NAIL, 1-5 08/13/2022 N/A 18786-Cczy Destruction, 1-14 08/13/2022 N/A 65929-ZSKU SKIN LESIONS, OVER 4 08/13/2022 N/A X3332-XVUJLZNX DYSTROPHIC NAILS ANY # 08/13/2022 N/A 59143-XEIJQUL NAIL, 1-5 11/12/2022 N/A 46479-Wdzb Destruction, 1-14 11/12/2022 N/A 57414-IDLO SKIN LESIONS, OVER 4 11/12/2022 N/A C6064-NYNBUEEK DYSTROPHIC NAILS ANY # 11/12/2022 N/A 13561-XZGAPYC NAIL, 1-5 02/04/2023 N/A 70710-Zmai Destruction, 1-14 02/04/2023 N/A 14809-ZDXU SKIN LESIONS, OVER 4 02/04/2023 N/A H1524-ERZSZGPB DYSTROPHIC NAILS ANY # 02/04/2023 N/A Encounters Encounter Location Date Provider Diagnosis [address] [address] 05/07/2022 Fabricio Yessica Type 2 diabetes mellitus with diabetic peripheral angiopathy without gangrene E11.51 ; Tinea unguium B35.1 ; Pain in right toe(s) M79.674 ; Pain in left toe(s) M79.675 ; Plantar wart B07.0 ; Pain in left foot M79.672 ; Other hammer toe(s) (acquired), right foot M20.41 and Other hammer toe(s) (acquired), left foot M20.42 [facility] [address] [address] 08/13/2022 Fabricio Yessica Type 2 diabetes mellitus with diabetic peripheral angiopathy without gangrene E11.51 ; Tinea unguium B35.1 ; Pain in right toe(s) M79.674 ; Pain in left toe(s) M79.675 ; Plantar wart B07.0 ; Pain in left foot M79.672 and Xerosis cutis L85.[address] [address] 08/14/2022 Fabricio Juan Xerosis cutis L85.[address] [address] 11/12/2022 Fabricio Juan Type 2 diabetes mellitus with diabetic peripheral angiopathy without gangrene E11.51 ; Tinea unguium B35.1 ; Pain in right toe(s) M79.674 ; Pain in left toe(s) M79.675 ; Plantar wart B07.0 ; Pain in left foot M79.672 and Xerosis cutis L85.[address] [address] 02/04/2023 Fabricio Juan Type 2 diabetes mellitus with diabetic peripheral angiopathy without gangrene E11.51 ; Tinea unguium B35.1 ; Pain in right toe(s) M79.674 ; Pain in left toe(s) M79.675 ; Plantar wart B07.0 ; Left foot pain M79.672 ; Other hammer toe(s) (acquired), right foot M20.41 and Other hammer toe(s) (acquired), left foot M20.[address] [address] 05/06/2023 Fabricio Juan [address] [address] 05/06/2023 Fabricio Juan ASSESSMENTS Encounter Date Diagnosis Assessment Notes Treatment [...] X ray : Foot, left 3V 02/06/2022 28688-IQKBBJZ NAIL, 1-5 05/07/2022 65819-XVAURUZ NAIL, 1-5 08/13/2022 08418-OJMGAEC NAIL, 1-5 11/12/2022 53778-AMNECPP NAIL, 1-5 02/04/2023 46181-IOIYHYY NAIL, 1-5 01/21/2022 93017-Dnmk Destruction, 1-14 01/21/2022 34608-Mvhw Destruction, 1-14 02/04/2023 06208-Lwob Destruction, 1-14 11/12/2022 31511-Ndgu Destruction, 1-14 08/13/2022 45318-Ucxy Destruction, 1-14 05/07/2022 87644-TMOD SKIN LESIONS, OVER 4 05/07/19 23 59665-PTJH SKIN LESIONS, OVER 4 08/14/19 23 46257-PYOC SKIN LESIONS, OVER 4 11/13/19 23 09258-HKEX SKIN LESIONS, OVER 4 02/05/20 23 11804-RCPD SKIN LESIONS, OVER 4 01/22/20 22 P7765-LXBGGUSE DYSTROPHIC NAILS ANY # W6950-UHSBPAZS DYSTROPHIC NAILS ANY # D7384-TCWMDEZA DYSTROPHIC NAILS ANY # Y0527-VSAEKRNK DYSTROPHIC NAILS ANY # M6224-HWMQDCYR DYSTROPHIC NAILS ANY # Next Appt Details Provider Name:Fabricio Juan , 06/13/2023 11:00:00 AM, [address] [place] [address], [address], Insurance Providers Payer Name Payer Address Payer Phone Subscriber Number Group Number Insured Name Patient Relationship to Insured Coverage Start Date Coverage End Date [employer] Preferred [address] [place] [address] [id number] Jhonny Shrestha Self - patient is the insured MEDICAL (GENERAL) HISTORY Medical History History ICD Code asthma Diabetic type ll Lung disease Parkinsons disease Stroke Chicken pox COPD Colon CA Surgical History Surgery Date(Month/Year) appendectomy gall bladder Hospitalization History Reason Date(Month/Year) Ultrasound both legs for veins 2021
--- OUTSIDE RECORDS SUMMARY | 2023-05-07 14:04 | XMS_ITS | Patient Health Record ---
Author Name Unknown Organization [facility] Address [address] [place] [address] Care Team Providers Care Guitar Repair Technician Name Role Phone Kandice WATSON, Elías Primary Care Provider UnavailJulio Cesar Ba Unavailable [phone] REASON FOR REFERRAL No Information MEDICATIONS Medication [...] 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) Active confirmed 253009333 Problem Diarrhea, unspecified type (R19.7) Active confirmed 93438330 Problem 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) Active confirmed 912506419 PLAN OF TREATMENT Pending Test Test Name [...] Date [employer] PREFERRED [address] [place] [address] [phone] [id number] LOPEZ CASEY Self - patient is the insured MEDICAL (GENERAL) HISTORY Medical History History ICD Code Stroke 01/2018 and another 2004 NIDDM Hypertension Asthma COPD Denies AL,renal disease Iron deficiency anemia-he wa s hospitalized [...]
== END 2023-05-07 14:23 | disposition home or self-care (01) ==
LOC: HO.HUSH 14:02
PROVIDERS: PCP Internal Medicine; Visit Provider Urology
DX: C61 Malignant neoplasm of prostate (principal)
CPT/HCPCS: 99213

== ENCOUNTER → 2023-05-07 14:02 | Outpatient (BNVA) | payer MEDICARE, SELFPAY | PROVIDERS: PCP Internal Medicine; Visit Provider Urology ==

== ENCOUNTER 2023-05-08 07:29 | Outpatient (REF) | payer MEDICARE, SELFPAY ==
--- NOTE | ~2023-05-08 | FL_ITS ---
EXAMINATION: FL BARIUM SWALLOW CLINICAL INFORMATION: Cough COMPARISON: None TECHNIQUE: Fluoroscopic air contrast upper GI examination was performed utilizing standard techniques with thin and thick barium and effervescent granules. Numerous spot images were obtained. FINDINGS: Lateral cine images of the oropharynx and hypopharynx demonstrate normal swallow mechanism with normal epiglottic inversion and soft palate elevation. There is trace laryngeal penetration with the thick barium. No tracheal penetration, glottic or subglottic aspiration identified. No nasopharyngeal reflux present. Hypopharyngeal structures appear normal without evidence of mass or diverticulum. There was no significant cricopharyngeal achalasia. Dual and single contrast images of the esophagus demonstrate normal caliber, contour, and mucosal pattern. No evidence of stricture, mass, or ulcerations identified. There is to and fro motion of the barium column noted, in addition to nonpropulsive tertiary contractions throughout the entire esophagus. A moderate sized type I hiatal hernia is present. Gastroesophageal reflux is seen up to the thoracic inlet. Stomach was not well evaluated on this exam. FLUOROSCOPY TIME: 3 minutes 44 seconds Number of Spot Images: 3 Number of Cine: 6 DOSE AREA PRODUCT: 1480 uGy-m2 (microgray-meter squared) FL/FL barium swallow IMPRESSION: 1. Trace laryngeal penetration with thick barium. No subglottic aspiration. 2. To and fro motion of the barium column with nonpropulsive tertiary contractions noted throughout the entire esophagus, consistent with esophageal dysmotility. 3. Moderate-sized type I hiatal hernia. 4. Severe gastroesophageal reflux. This procedure was performed by Luis Chun PA-C, and supervised by Dr. Coombs
== END 2023-05-08 07:30 | disposition home or self-care (01) ==
LOC: HO.XRAY 07:29
PROVIDERS: PCP Internal Medicine; Visit Provider Internal Medicine
DX: R05.9 Cough, unspecified (principal); R13.10 Dysphagia, unspecified
CPT/HCPCS: 74220

== ENCOUNTER → 2023-05-08 07:31 | Outpatient (BNV) | payer MEDICARE, SELFPAY | PROVIDERS: PCP Internal Medicine; Visit Provider Radiology Diagnostic Radiology | DX: R05.8 Other specified cough (principal) | CPT/HCPCS: 74221 ==

== ENCOUNTER 2023-05-08 08:42 | Outpatient (REF) | payer MEDICARE, SELFPAY ==
[2023-05-08 10:52] LABS: Estimated Average Glucose 143 mg/dL; Hemoglobin A1c % 6.6 % (<6.0)
[2023-05-08 10:57] LABS: Alanine Aminotransferase 14 U/L (0-40); Albumin Level 4.4 g/dL (3.5-5.0); Alkaline Phosphatase 84 U/L (39-117); Anion Gap 17 (12-20); Aspartate Amino Transferase 16 U/L (5-37); Bilirubin Total 0.4 mg/dL (0.0-1.0); Blood Urea Nitrogen 50 mg/dL (9-16); Carbon Dioxide 21 mmol/L (22-29); Chloride 109 mmol/L (96-108); Estimated Glomerular Filt Rate 34; Glucose Random 124 mg/dL (60-115); Potassium 4.5 mmol/L (3.3-5.1); Sodium 142 mmol/L (135-145); Total Protein 7.8 g/dL (6.5-8.0)
== END 2023-05-08 08:43 | disposition home or self-care (01) ==
LOC: HO.10HDL 08:42
PROVIDERS: Visit Provider Internal Medicine
DX: C61 Malignant neoplasm of prostate (principal); E11.9 Type 2 diabetes mellitus without complications; N18.9 Chronic kidney disease, unspecified; Z86.73 Personal history of transient ischemic attack (TIA), and cerebral infarction without residual deficits
CPT/HCPCS: 36415; 80053; 83036

== ENCOUNTER 2023-05-23 10:06 | Outpatient (REF) | payer MEDICARE, SELFPAY ==
--- NOTE | ~2023-05-23 | FL_ITS ---
EXAMINATION: Modified Barium Swallows CLINICAL INFORMATION: Dysphagia COMPARISON: 05/08/2023 esophagram. TECHNIQUE: Modified barium swallow was performed under lateral fluoroscopy with patient in standing position. Different consistency of barium mixed with fluids and solids of varying consistency was administered by the speech therapist. Examination was recorded in the fluoroscopy suite. FINDINGS: No aspiration or laryngeal penetration was seen during this examination. There are mild to moderate cervical spine degenerative changes with mildly exaggerated lordosis. FLUOROSCOPY TIME: 1 minute 8 seconds Number of Spot Images: 1 DOSE AREA PRODUCT: 714.9 uGy-m2 (microgray-meter squared) FL/FL barium swallow modified IMPRESSION: No aspiration or laryngeal penetration was seen during this examination. Refer to the speech therapy report for further details. This procedure was performed by Luis Chun PA-C, and supervised by Dr. Coombs
--- NOTE | 2023-05-23 12:06 | MHC.SL.IMP ---
Date of Plan of Treatment: 05/23/23 Onset of Symptoms/Illness: 05/15/23 Date Treatment Started: 05/23/23 Admitting Diagnosis: Dysphagia Primary Speech & Language Diagnosis: R13.10 Dysphagia Reason for Today's Visit: 42198 Modified Barium Swallow Study Pre-evaluation Dietary Consistencies: Regular Pre-evaluation Liquid Consistency: Thin Pre-evaluation Medication Administration: Whole with Liquid Oral Motor Exam Facial Symmetry: Normal for Patient Symmetrical Facial Movement: Oral Expression Ability: No Impairment Is patient able to manage secretions?: No Is patient able to produce volitional cough?: No Food and Liquid Trials: Oral Impairment: Lip Closure: 2=Escape @ interlabial space/lat juncture; not beyond vermilion border Oral Impairment: Tongue Control During Bolus Hold: 0=Cohesive bolus between tongue to palatal seal Oral Impairment: Bolus Preparation/Mastication: 1=Slow prolonged chewing/mashing with complete re-collection Oral Impairment: Bolus Transport/Lingual Motion: 0=Brisk tongue motion Oral Impairment: Oral Residue: 2=Residue collection on oral structures Oral Impairment:Initiation of Pharyngeal Swallow: 2=Bolus head at posterior laryngeal surface of epiglottis Pharyngeal Impairment: Soft Palate Elevation: 0=No bolus between soft palate (SP)/pharyngeal wall (PW) Pharyngeal Impairment: Laryngeal Elevation: 0=Complete superior movement of thyroid cartilage (see description) Pharyngeal Impairment: Anterior Hyoid Excursion: 0=Complete anterior movement Pharyngeal Impairment: Epiglottic Movement: 0=Complete inversion Pharyngeal Impairment: Laryngeal Vestibular Closure:: 0=Complete: no air/contrast in laryngeal vestibule Pharyngeal Impairment: Pharyngeal Stripping Wave: 0=Present: complete Pharyngeal Impairment: Pharyngeal Contraction: Did not test Pharyngeal Impairment: Pharyngoesophageal Segment Openin=Partial distention/partial duration: partial obstruction of flow Pharyngeal Impairment: Tongue Base (TB) Retraction: 2=Narrow column of contrast/air between TB and posterior PW Pharyngeal Impairment: Pharyngeal Residue: 2=Collection of residue within or on pharyngeal structures Pharyngeal Impairment: Esophageal Clearance Upright Position: Did not test Impressions and Recommendations Clinical Observations: MBSImP Results: Lip closure for intraoral bolus containment resulted in bolus escape from the interlabial space or lateral juncture, but no extension beyond the vermilion border. Tongue control during bolus hold maintained a cohesive bolus held between tongue to palate seal. Bolus preparation and mastication resulted in timely and efficient chewing and mashing. Bolus transport/lingual motion was with brisk tongue motion. Oral residue was a trace, lining oral structures. Initiation of the pharyngeal swallow occurred as the bolus head was at the posterior laryngeal surface of the epiglottis. Soft palate elevation resulted in no bolus between the soft palate and the pharyngeal wall. Laryngeal elevation demonstrated complete superior movement of the thyroid cartilage with complete approximation of the arytenoids to the epiglottic petiole. Anterior hyoid excursion demonstrated complete anterior movement. Epiglottic movement resulted in complete inversion. Laryngeal vestibular closure was complete, as indicated by no air or contrast within the laryngeal vestibule at the height of the swallow. Pharyngeal stripping wave was present and complete. Pharyngeal contraction could not be determined due to logistical reasons not related to physiologic impairment. Pharyngoesophageal segment opening demonstrated partial distension/partial duration, with partial obstruction of bolus flow. Tongue base retraction allowed a trace column of contrast or air between the retracted tongue base and the posterior pharyngeal wall. Pharyngeal residue was a trace within or on pharyngeal structures. Esophageal clearance in the upright position could not be assessed due to logistical reasons not related to physiologic impairment. Oral Impairment Score: 4 Pharyngeal Impairment Score: 1 (absence of score, component 13) Esophageal Impairment Score: --- (absence of score, component 17) SUMMARY: No aspiration or penetration was observed in today's study. Cookie, Pudding-thick, and Thin Contrast did not enter the airway. Mild age-related changes observed included oral and pharyngeal residue after the swallow, mild delay in swallow initiation, mild retention of contrast at the UES. His results are consistent with the findings of his recent Barium Swallow. Recommendations for esophageal dysphaga are included below. Liquid Intake Recommendation: Thin Liquid Intake Strategies: Unrestricted Dietary Recommendations: Regular Medication Administration: Whole with Liquid Please contact the pharmacy regarding appropriate crushable or liquid drug formulations that are available whenever modified delivery is recommended. Compensatory Strategies Recommended: Sitting Upright (90 deg) Small Bites and Sips Alternate Liquids/Solids Supervision during eating and or drinking: None Needed Recommended Treatments: Compens. Strategy Educat. Recommendation for Speech Therapy: NA:Typical Evaluation Text Comment: Follow-up with referring provider. Recommendations for Esophageal Dysphagia: - Avoid acidic, spicy foods - Chew solids well - Alternate bites and sips - Stay upright at least 30 minutes after meals - Speak with your Doctor about medication, if not already prescribed Frequency/Duration: N/a Date Range for Service Requested: Timeline to reassess: PRN Canary Raiser Clinician/Clinical Fellow: No Supervisory Statement: N/A Speech Language Pathologist: Frankie Hill M.A., CCC-REFRIGERATION SYSTEM INSTALLER
== END 2023-05-23 10:07 | disposition home or self-care (01) ==
LOC: HO.XRAY 10:06
PROVIDERS: Visit Provider Internal Medicine
DX: R05.9 Cough, unspecified (principal); R13.10 Dysphagia, unspecified
CPT/HCPCS: 74230; 92611

== ENCOUNTER → 2023-05-23 10:11 | Outpatient (BNV) | payer MEDICARE, SELFPAY | PROVIDERS: Visit Provider Radiology Diagnostic Radiology | DX: R13.10 Dysphagia, unspecified (principal) | CPT/HCPCS: 74230 ==

== ENCOUNTER 2023-06-27 07:21 | Outpatient (REF) | payer MEDICARE, SELFPAY ==
[2023-06-27 12:57] LABS: Anion Gap 13 (12-20); Blood Urea Nitrogen 52 mg/dL (9-16); Calcium 9.6 mg/dL (8.4-10.2); Carbon Dioxide 22 mmol/L (22-29); Chloride 113 mmol/L (96-108); Estimated Glomerular Filt Rate 39; Potassium 4.8 mmol/L (3.3-5.1); Sodium 143 mmol/L (135-145)
== END 2023-06-27 07:22 | disposition home or self-care (01) ==
LOC: HO.10HDL 07:21
PROVIDERS: Visit Provider Internal Medicine Hypertension Specialist
DX: N18.30 Chronic kidney disease, stage 3 unspecified (principal)
CPT/HCPCS: 36415; 80051; 82310; 82565; 84520

== ENCOUNTER 2023-07-03 10:15 | Outpatient (AMB) | payer MEDICARE, SELFPAY ==
--- NOTE | 2023-07-03 10:16 | HO.NEPHOV_ITS ---
HPI HPI Comments History of Present Illness Details 82-year-old man with a history of longst anding hypertension and diabetes mellitus with CKD 3. He has a history of hyperkalemia back in April 2022. This was treated medically. He was using salt substitute while he was on lisinopril. Lisinopril was placed on hold and restarted again. Over the last few months serum potassium has been in the normal range. Baseline serum creatinine is around 1.5 mg/dL. He has a history of prostate cancer and is being followed by Dr. Beatty. He has a history of for shortness of breath on exertion. Seen by Dr. Ornelas. Echocardiogram was unremarkable. s/p stress test Also has history of COPD. Being followed by Dr. Luz He was scheduled for his sleep evaluation but never underwent. [facility] Medical History Hypersomnia Stroke COPD exacerbation COPD (chronic obstructive pulmonary disease) Allergic rhinitis Surgical History S/P tonsillectomy and adenoidectomy Hx of cholecystectomy History of appendectomy Family History Mother No problems noted. Father Heart disease Social History Alcohol intake: former Patient Tobacco Use Status: Former Tobacco user Quit Date: 2017 Years Smoked: 40 +/- Vital Signs 07/03/23 10:17 Height 5 ft 9 in Weight 176 lb 8 oz BMI 26.1 BP 130/64 Blood Pressure Location Lt brachial Position Sitting Pulse 76 Pulse Source Pulse Oximeter Pulse Oximetry (%) 96 Oxygen Delivery Method Room Air Physical Exam Vital Signs: Last Vital Signs Pulse 76 07/03/23 10:17 BP 130/64 07/03/23 10:17 Pulse Ox 96 07/03/23 10:17 Oxygen Delivery Method Room Air 07/03/23 10:17 BMI result Body Mass Index 26.1 Const General: comfortable Nutritional Appearance: well nourished Orientation/consciousness: patient oriented x3 HEENT Head: No normal to inspection Mouth: moist mucous membranes Neck Neck: Yes supple and Yes no JVD Resp Auscultation: clear to auscultation bilaterally, no rales and rub present Cardio Jugular venous distension: no JVD Palpation: no palpable S3 and no palpable S4 Heart sounds: no rubs GI Palpation (GI): Soft to palpation and nontender Percussion: No Fluid wave present General: Yes no CVA tenderness Back/Spine/Pelvis Back: no CVA tenderness Skin General skin exam: no rashes or lesions noted Neuro General: patient oriented x3 Motor exam (neuro): Tremors during motor activity present Extrem General: Yes no pedal edema and No clubbing Assessment & Plan Assessment & Plan (1) CKD (chronic kidney disease) stage 3, GFR 30-59 ml/min: Code(s): N18.30 - Chronic kidney disease, stage 3 unspecified Qualifiers: Chronic kidney disease stage 3 subtype: stage 3b (GFR 30-44) Qualified Code(s): N18.32 - Chronic kidney disease, stage 3b Plan: CKD in the setting of longstanding hypertension and diabetes mellitus. Renal function is close to baseline. He has stage IIIB CKD. Goal is to slow the progression of renal disease. Continue to avoid nephrotoxic agents including NSAIDs. Encouraged to stay on low-sodium diet. He will benefit from a SGLT 2 inhibitor (2) SOB (shortness of breath) on exertion: Code(s): R06.02 - Shortness of breath Plan: Multifactorial. Being evaluated and followed by Cardiology and Pulmonary at this time. (3) Hyperkalemia: Code(s): E87.5 - Hyperkalemia Plan: In a setting of CKD. He should stay on low-potassium diet. Avoid salt substitutes. Closely monitor serum potassium periodically. Orders: Orders Comprehensive Met. Panel 4 Months N18.9 - Chronic kidney disease, unspecified Complete Blood Count Auto Diff 4 Months N18.30 - Chronic kidney disease, stage 3 unspecified Coding Level of Care Code Est Pt Level 4 (84257) Diagnoses Stage 3b chronic kidney disease N18.32 Chronic kidney disease stage 3 subtype: stage 3b (GFR 30-44) SOB (shortness of breath) on exertion R06.02 Hyperkalemia E87.5 Results Reviewed Nephrology Results: Sodium 143 mmol/L (135-145) 06/27/23 Potassium 4.8 mmol/L (3.3-5.1) 06/27/23 Chloride 113 mmol/L (96-108) H 06/27/23 Carbon Dioxide 22 mmol/L (22-29) 06/27/23 BUN 52 mg/dL (9-16) H 06/27/23 Creatinine 1.70 mg/dL (0.5-1.4) H 06/27/23 Calcium 9.6 mg/dL (8.4-10.2) 06/27/23
[2023-07-03 10:17] VITALS: BP 130/64; PULSE 76; O2SAT 96; BMI 26.1
== END 2023-07-03 10:38 | disposition home or self-care (01) ==
PROVIDERS: PCP Internal Medicine; Visit Provider Internal Medicine Hypertension Specialist
DX: N18.32 Chronic kidney disease, stage 3b (principal); R06.02 Shortness of breath; E87.5 Hyperkalemia
CPT/HCPCS: 99214

== ENCOUNTER → 2023-07-03 10:15 | Outpatient (BNVA) | payer MEDICARE, SELFPAY | PROVIDERS: PCP Internal Medicine; Visit Provider Internal Medicine Hypertension Specialist | DX: N18.32 Chronic kidney disease, stage 3b (principal); R06.02 Shortness of breath; E78.5 Hyperlipidemia, unspecified | CPT/HCPCS: 99212 ==

== ENCOUNTER 2023-07-24 07:27 | Outpatient (REF) | payer MEDICARE, SELFPAY ==
[2023-07-24 11:35] LABS: Prostate Specific Antigen < 0.10 ng/mL (<0.05-4.0)
[2023-07-28 11:33] LABS: Testosterone, Total 6 ng/dL (250-1100)
== END 2023-07-24 07:28 | disposition home or self-care (01) ==
LOC: HO.10HDL 07:27
PROVIDERS: Visit Provider Urology
DX: C61 Malignant neoplasm of prostate (principal); Z12.5 Encounter for screening for malignant neoplasm of prostate
CPT/HCPCS: 36415; 84153; 84403

== ENCOUNTER 2023-08-06 12:49 | Outpatient (AMB) | payer MEDICARE, SELFPAY ==
--- NOTE | 2023-08-06 12:54 | A.OFFVIS_ITS ---
Intake Intake Visit Reasons: 3M PSA/Testosterone(set)Confirmed Intake Note: Patient is Present for Telephone Follow Up Labs Urology Med: Finasteride Antibiotic Allergy: None Blood Thinner: None Swing Frame Grinder Operator Required: No Accompanied by: Self / Same As Patient Allergies No Known Allergies [No Known Allergies*] Allergy (Verified 08/06/23 12:54) Medication List - Last Reconciled 08/06/23 by Gerson Beatty MD albuterol sulfate 90 mcg/actuation (ProAir HFA) 2 puffs inhalation Q4-6H PRN 60 days Breo Ellipta 100-25 mcg/dose (fluticasone furoate-vilanterol) 1 inh inhalation DAILY 90 days NS cetirizine 10 mg PO DAILY famotidine 40 mg PO DAILY PRN finasteride 5 mg PO DAILY 90 days fluticasone propionate 50 mcg/actuation (Flonase Allergy Relief) 1 spray intranasal BID glipizide ER 5 mg PO DAILY guaifenesin ER (Mucinex) 600 mg PO BID lisinopril-hydrochlorothiazide 10-12.5 mg 1 tab PO DAILY pantoprazole 40 mg PO DAILY simvastatin 40 mg PO DAILY HPI HPI Comments History of Present Illness Details Jhonny is a pleasant male. He is a patient of Dr. Darby. He seen for the following urologic conditions - prostate cancer Telemedicine Evaluation 15 min Consultation Bionym Chanel Video attempted Good response to GnRH therapy. PSA nondetectable Plan for 18 month course. Recommend bone support during hormonal therapy with Citracal and vitamin-D Plan for next GnRH mid October PSA 02/10 13.2, 05/14 3.9 T 1.6, 08/12 <0.1 T6 GnRH 04/12 Prostate cancer 10/1123 grade group 3, low volume Prostate biopsy for elevated PSA - 9.6, free 14% 80 g prostate at time of TRUS, pT1c Upland score:?7 (4+3) (left apex lateral) 80% Periprostatic fat inv.: Not identified Seminal vesicle inv.: Not identified Perineural inv.: Not identified Lymphovascular invasion: Not identified PFSH Medical History Hypersomnia Stroke COPD exacerbation COPD (chronic obstructive pulmonary disease) Allergic rhinitis Surgical History S/P tonsillectomy and adenoidectomy Hx of cholecystectomy History of appendectomy Family History Mother No problems noted. Father Heart disease Social History Alcohol intake: former Patient Tobacco Use Status: Former Tobacco user Quit Date: 2017 Years Smoked: 40 +/- Review of Systems Const All systems reviewed & are unremarkable except as noted in HPI and below Reports no additional complaints Resp Reports no additional complaints GI Reports no additional complaints Reports as per HPI Musc Reports no additional complaints Physical Exam Telemedicine evaluation Appropriate responses Regular breathing rate and rhythm HEENT Head: Yes normal to inspection Ears: hearing grossly normal bilaterally Eyes General: appearance normal, both eyes and all related structures Neck Neck: Yes normal visual inspection Chest Chest palpation & inspection: normal inspection of the chest Resp Effort & Inspection: normal respiratory effort and able to speak in complete sentences Assessment & Plan Assessment & Plan (1) Prostate cancer: Code(s): C61 - Malignant neoplasm of prostate Plan Three-month follow-up lab work GnRH Orders: Orders Testosterone, Total 3 Months C61 - Malignant neoplasm of prostate Prostate Specific Antigen 3 Months C61 - Malignant neoplasm of prostate Patient Instructions: Imaging studies, laboratory and physical exam results were discussed and reviewed in detail. No major barriers to patient understanding were identified. An opportunity to ask questions regarding the treatment plan was provided. All questions were answered. The patient expressed understanding and agreement with the above treatment plan. The patient is aware they should contact our office by phone for worsening of their current condition or the appearance of new urologic symptoms. Compliance is encouraged with any medications and followup testing that is ordered. It is a privilege to participate in the urologic care of your patient. If you have any questions or concerns regarding treatment for the above conditions, or other urologic issues, please do not hesitate to contact me. The office telephone contact is [phone]. This note is constructed using voice recognition software. While every effort has been made to ensure accuracy electric motor tester assembler errors may have been included. Yours sincerely, Dr Gerson Beatty MD, [facility] - Urology Providers of Expert, Compassionate Care for the Genitourinary System Telehealth Telehealth Location of provider rendering services: practice address Location of patient: address on file Patient Identification confirmed using: Name, : Yes Telehealth method: video Patient verbally consented to treatment: Yes Patient verbally consented to billing insurance company: Yes Patient informed of any privacy concerns related to visit: Yes Minutes spent on Phone/Video with Pt.: 15 Coding Level of Care Code Tele Est Pt Level 3 (56073) Diagnoses Prostate cancer C61
== END 2023-08-06 13:22 | disposition home or self-care (01) ==
LOC: HO.HUSH 12:49
PROVIDERS: PCP Internal Medicine; Visit Provider Urology
DX: C61 Malignant neoplasm of prostate (principal)
CPT/HCPCS: 99213

== ENCOUNTER → 2023-08-06 12:49 | Outpatient (BNVA) | payer MEDICARE, SELFPAY | PROVIDERS: PCP Internal Medicine; Visit Provider Urology ==

== ENCOUNTER 2023-08-11 08:02 | Outpatient (REF) | payer MEDICARE, SELFPAY ==
[2023-08-11 11:10] LABS: Alanine Aminotransferase 13 U/L (0-40); Albumin Level 3.9 g/dL (3.5-5.0); Alkaline Phosphatase 83 U/L (39-117); Anion Gap 13 (12-20); Aspartate Amino Transferase 13 U/L (5-37); Bilirubin Total 0.3 mg/dL (0.0-1.0); Blood Urea Nitrogen 55 mg/dL (9-16); Calcium 9.3 mg/dL (8.4-10.2); Carbon Dioxide 21 mmol/L (22-29); Chloride 110 mmol/L (96-108); Cholesterol 146 mg/dL (<200); Estimated Glomerular Filt Rate 34; Glucose Random 148 mg/dL (60-115); HDL Cholesterol 42 mg/dL (>40); LDL Cholesterol Calculated 83 mg/dL (<100); Potassium 4.6 mmol/L (3.3-5.1); Sodium 139 mmol/L (135-145); Total Protein 6.8 g/dL (6.5-8.0); Triglycerides 107 mg/dL (<150)
[2023-08-11 11:15] LABS: Creatinine Urine 54.84 mg/dL; Microalbum/Creatinine Ratio Ur 38.2 ug/mg cr (<30)
[2023-08-11 11:27] LABS: Estimated Average Glucose 151 mg/dL; Hemoglobin A1c % 6.9 % (<6.0)
== END 2023-08-11 08:03 | disposition home or self-care (01) ==
LOC: HO.10HDL 08:02
PROVIDERS: Visit Provider Internal Medicine
DX: C61 Malignant neoplasm of prostate (principal); E11.40 Type 2 diabetes mellitus with diabetic neuropathy, unspecified; K21.9 Gastro-esophageal reflux disease without esophagitis; K44.9 Diaphragmatic hernia without obstruction or gangrene
CPT/HCPCS: 36415; 80053; 80061; 82043; 82570; 83036

== ENCOUNTER 2023-09-25 10:37 | Outpatient (AMB) | payer MEDICARE, SELFPAY ==
[2023-09-25 10:57] VITALS: BP 110/62; PULSE 69; O2SAT 96; BMI 25.8
--- NOTE | 2023-09-25 10:57 | MHC.OFFVIS ---
Vital Signs 09/25/23 10:57 Height 5 ft 9 in Weight 175 lb BMI 25.8 BP 110/62 Blood Pressure Location Lt brachial Position Sitting Pulse 69 Pulse Source Pulse Oximeter Pulse Oximetry (%) 96 Oxygen Delivery Method Room Air Intake Visit Reasons: copd Intake Note: pt is here for follow up and states his breathing is good, some coughing, with feeling of something stuck in throat, once phelgm is up he is better. FYI having cataract surgery for both eyes (no clearance needed) Watch Repair Person Required: No Allergies No Known Allergies [No Known Allergies*] Allergy (Verified 09/25/23 11:20) Medication List - Last Reconciled 09/25/23 by Dov Luz MD albuterol sulfate 90 mcg/actuation (ProAir HFA) 2 puffs inhalation Q4-6H PRN 60 days Breo Ellipta 100-25 mcg/dose (fluticasone furoate-vilanterol) 1 inh inhalation DAILY 90 days NS cetirizine 10 mg PO DAILY famotidine 40 mg PO DAILY PRN finasteride 5 mg PO DAILY 90 days fluticasone propionate 50 mcg/actuation (Flonase Allergy Relief) 1 spray intranasal BID PRN glipizide ER 5 mg PO DAILY guaifenesin ER (Mucinex) 600 mg PO BID lisinopril-hydrochlorothiazide 10-12.5 mg 1 tab PO DAILY pantoprazole 40 mg PO DAILY simvastatin 40 mg PO DAILY Do you need a note to return to daycare/school/sports/work: No HPI HPI copd: Details: LOPEZ IS NOW 82 YEARS OLD GENTLEMAN, HE HAS LONGSTANDING HISTORY OF ALLERGIC RHINITIS ASTHMA/COPD. CURRENTLY USING BREO 100-25 ONCE A DAY, AND HARDLY NEEDS TO USE THE RESCUE INHALER. HE HAS CHRONIC ALLERGIC RHINITIS WHICH FLARES UP WITH EVERY CHANGE IN THE WEATHER. HE IS ABLE TO CONTROL HIS SYMPTOMS WITH THE USE OF CURRENT MEDICAL REGIMEN. OVERALL DOING VERY WELL, [facility] Medical History Hypersomnia Stroke COPD exacerbation COPD (chronic obstructive pulmonary disease) Allergic rhinitis Surgical History S/P tonsillectomy and adenoidectomy Hx of cholecystectomy History of appendectomy Family History Mother No problems noted. Father Heart disease Social History Alcohol intake: former Patient Tobacco Use Status: Former Tobacco user Years Smoked: 40 +/- Review of Systems Const All systems reviewed & are unremarkable except as noted in HPI and below Eyes Reports no additional complaints ENT Denies vertigo, Denies dizziness and Reports nasal congestion (Mild intermittent) Card Denies chest pain, Denies irregular heart rhythm and Denies leg edema Resp Reports as per HPI GI Reports no additional complaints Reports no additional complaints Musc Reports no additional complaints Skin/Breast Reports system reviewed and no additional complaints, except as documented Neuro Denies vertigo and Denies dizziness Psych Reports no additional complaints Endo Reports no additional complaints Physical Exam Vital Signs: Last Vital Signs Pulse 69 09/25/23 10:57 BP 110/62 09/25/23 10:57 Pulse Ox 96 09/25/23 10:57 Oxygen Delivery Method Room Air 09/25/23 10:57 BMI result Body Mass Index 25.8 Const General: healthy appearing, comfortable, no acute distress, alert and awake Orientation/consciousness: patient oriented x3 HEENT Head: Yes normal to inspection General nose exam: No nasal polyps present and No nasal discharge present Face and sinus: Yes sinuses nontender Mouth: oropharynx normal Throat: Yes posterior oropharynx normal (There is some a whitish mucus in the nasopharynx) Eyes General: appearance normal, both eyes and all related structures Neck Neck: Yes normal visual inspection, Yes no lymphadenopathy, Yes trachea midline and Yes no JVD Thyroid: Thyroid normal Chest Chest palpation & inspection: normal inspection of the chest, normal palpation of entire chest wall and no tenderness Resp Other: Percussion note resonant, breath sounds are distant with prolonged expiratory phase. But both lungs are clear without wheezes crepitations or rhonchi . Cardio Palpation: normal PMI Rate: regular rate Rhythm: regular rhythm Heart sounds: no gallops and no murmurs Peripheral pulses: Peripheral pulses 2+ throughout GI Palpation (GI): Soft to palpation, nontender, No hepatosplenomegaly present and no masses Auscultation: normal bowel sounds Back/Spine/Pelvis Thoracic/Lumbar Spine: thoracic and lumbar spine normal to inspection and thoraco-lumbar ROM limited Skin General skin exam: no rashes or lesions noted Neuro General: patient oriented x3 and no focal motor deficits Cranial nerves: Yes CN's II-XII intact bilaterally Extrem General: Yes normal to inspection, Yes no clubbing, cyanosis or edema and Yes no calf tenderness Psych Appearance: grossly normal and well kempt Speech and movement: Normal speech and movement present Assessment & Plan Assessment & Plan (1) Allergic rhinitis: Comment: MILD , REMAINS WELL CONTROLLED . Code(s): J30.9 - Allergic rhinitis, unspecified Category: Medical Plan: CONTINUE PRESENT REGIMEN. CETIRIZINE 10 MG ONCE A DAY P.R.N. FLONASE 2 SPRAY IN EACH NOSTRIL ONLY P.R.N. (2) COPD (chronic obstructive pulmonary disease): Comment: COPD WITH ELEMENT OF MILD ASTHMA, REMAINS VERY STABLE . Code(s): J44.9 - Chronic obstructive pulmonary disease, unspecified Category: Medical Plan: CONTINUE USING BREO 100-251 INHALATION DAILY ALBUTEROL HFA 2 PUFFS Q 4-6 HOURS ONLY P.R.N. Coding Level of Care Code Est Pt Level 3 (21601) Diagnoses Allergic rhinitis J30.9 COPD (chronic obstructive pulmonary disease) J44.9
== END 2023-09-25 11:20 | disposition home or self-care (01) ==
PROVIDERS: PCP Internal Medicine; Visit Provider Internal Medicine
DX: J30.9 Allergic rhinitis, unspecified (principal); J44.9 Chronic obstructive pulmonary disease, unspecified
CPT/HCPCS: 99213

== ENCOUNTER → 2023-09-25 10:37 | Outpatient (BNVA) | payer MEDICARE, SELFPAY | PROVIDERS: PCP Internal Medicine; Visit Provider Internal Medicine | DX: J44.9 Chronic obstructive pulmonary disease, unspecified (principal); J30.9 Allergic rhinitis, unspecified | CPT/HCPCS: 99212 ==

== ENCOUNTER 2023-10-06 07:33 | Outpatient (REF) | payer MEDICARE, SELFPAY ==
[2023-10-06 11:08] LABS: Prostate Specific Antigen < 0.10 ng/mL (<0.05-4.0)
[2023-10-10 13:54] LABS: Testosterone, Total 4 ng/dL (250-1100)
== END 2023-10-06 07:34 | disposition home or self-care (01) ==
LOC: HO.10HDL 07:33
PROVIDERS: Visit Provider Urology
DX: C61 Malignant neoplasm of prostate (principal); Z12.5 Encounter for screening for malignant neoplasm of prostate
CPT/HCPCS: 36415; 84153; 84403

== ENCOUNTER 2023-10-17 07:32 | Outpatient (REF) | payer MEDICARE, SELFPAY ==
[2023-10-17 09:53] LABS: MANUAL DIFF FLAG NO
[2023-10-17 09:54] LABS: Basophils Absolute Auto 0.1 X10*3/uL (0.0-0.2); Basophils Percent Auto 0.4 % (0-2); Eosinophils Absolute Auto 0.6 X10*3/uL (0.0-0.4); Eosinophils Percent Auto 5.1 % (0-4); Hematocrit 41.2 % (42.0-52.0); Hemoglobin 13.4 g/dl (14.0-18.0); Imm Gran Abs Auto 0.04 X10*3/uL (0.00-0.03); Imm Gran Pct Auto 0.4 % (0.0-0.4); Lymphocytes Absolute Auto 2.8 X10*3/uL (1.2-4.9); Lymphocytes Percent Auto 24.9 % (20-40); Mean Corpuscular HGB Conc 32.5 g/dl (31.0-36.0); Mean Corpuscular Hemoglobin 27.6 pg (27.0-33.0); Mean Corpuscular Volume 84.9 fL (80.0-98.0); Monocytes Absolute Auto 0.7 X10*3/uL (0.1-1.2); Monocytes Percent Auto 5.8 % (2-11); Neutrophils Absolute Auto 7.2 x10*3/uL (2.0-8.3); Neutrophils Percent Auto 63.4 % (45-73); Platelet Count 192 X10*3/uL (160-400); Red Blood Count 4.85 X10*6/uL (4.60-5.80); Red Cell Distribution Width 13.2 % (11.0-16.0); White Blood Count 11.3 X10*3/uL (4.8-10.8)
[2023-10-17 10:25] LABS: Alanine Aminotransferase 13 U/L (0-40); Albumin Level 4.1 g/dL (3.5-5.0); Alkaline Phosphatase 94 U/L (39-117); Anion Gap 17 (12-20); Aspartate Amino Transferase 20 U/L (5-37); Bilirubin Total 0.3 mg/dL (0.0-1.0); Blood Urea Nitrogen 53 mg/dL (9-16); Calcium 9.1 mg/dL (8.4-10.2); Carbon Dioxide 20 mmol/L (22-29); Chloride 107 mmol/L (96-108); Estimated Glomerular Filt Rate 28; Glucose Random 213 mg/dL (60-115); Potassium 4.5 mmol/L (3.3-5.1); Sodium 139 mmol/L (135-145); Total Protein 7.1 g/dL (6.5-8.0)
== END 2023-10-17 07:33 | disposition home or self-care (01) ==
LOC: HO.10HDL 07:32
PROVIDERS: Visit Provider Internal Medicine Hypertension Specialist
DX: N18.30 Chronic kidney disease, stage 3 unspecified (principal)
CPT/HCPCS: 36415; 80053; 85025

== ENCOUNTER 2023-11-10 08:22 | Outpatient (REF) | payer MEDICARE, SELFPAY ==
[2023-11-10 09:26] LABS: Estimated Average Glucose 160 mg/dL; Hemoglobin A1c % 7.2 % (<6.0)
[2023-11-10 09:45] LABS: Alanine Aminotransferase 12 U/L (0-40); Albumin Level 4.4 g/dL (3.5-5.0); Alkaline Phosphatase 88 U/L (39-117); Anion Gap 14 (12-20); Aspartate Amino Transferase 16 U/L (5-37); Bilirubin Total 0.4 mg/dL (0.0-1.0); Blood Urea Nitrogen 64 mg/dL (9-16); Calcium 10.1 mg/dL (8.4-10.2); Carbon Dioxide 21 mmol/L (22-29); Chloride 107 mmol/L (96-108); Estimated Glomerular Filt Rate 32; Glucose Random 153 mg/dL (60-115); Potassium 5.3 mmol/L (3.3-5.1); Sodium 137 mmol/L (135-145); Total Protein 7.4 g/dL (6.5-8.0)
== END 2023-11-10 08:23 | disposition home or self-care (01) ==
LOC: HO.LAB 08:22
PROVIDERS: PCP Internal Medicine; Visit Provider Internal Medicine
DX: I12.9 Hypertensive chronic kidney disease with stage 1 through stage 4 chronic kidney disease, or unspecified chronic kidney disease (principal); E11.22 Type 2 diabetes mellitus with diabetic chronic kidney disease; N18.32 Chronic kidney disease, stage 3b; R06.02 Shortness of breath; E87.5 Hyperkalemia; C61 Malignant neoplasm of prostate; E11.40 Type 2 diabetes mellitus with diabetic neuropathy, unspecified; E78.00 Pure hypercholesterolemia, unspecified; I10 Essential (primary) hypertension
CPT/HCPCS: 36415; 80053; 83036; 99212

== ENCOUNTER 2023-11-10 10:54 | Outpatient (AMB) | payer MEDICARE, SELFPAY ==
[2023-11-10 11:00] VITALS: BP 122/72; PULSE 79; O2SAT 96; BMI 25.4
--- NOTE | 2023-11-10 11:00 | HO.NEPHOV ---
Vital Signs 11/10/23 11:00 Height 5 ft 9 in Weight 172 lb BMI 25.4 BP 122/72 Blood Pressure Location Rt brachial Position Sitting Pulse 79 Pulse Source Pulse Oximeter Pulse Oximetry (%) 96 Oxygen Delivery Method Room Air Intake Visit Reasons: CKD/ 4 MO FU/ [facility] Manager Required: No Accompanied by: Son Allergies No Known Allergies [No Known Allergies*] Allergy (Verified 11/10/23 11:02) Medication List - Last Reconciled 11/10/23 by Clive Boykin MD albuterol sulfate 90 mcg/actuation (ProAir HFA) 2 puffs inhalation Q4-6H PRN 60 days Breo Ellipta 100-25 mcg/dose (fluticasone furoate-vilanterol) 1 inh inhalation DAILY 90 days NS cetirizine 10 mg PO DAILY dorzolamide 2% 1 drp ophthalmic (eye) Q12H famotidine 40 mg PO DAILY PRN finasteride 5 mg PO DAILY 90 days fluticasone propionate 50 mcg/actuation (Flonase Allergy Relief) 1 spray intranasal BID PRN glipizide ER 5 mg PO DAILY guaifenesin ER (Mucinex) 600 mg PO BID ketorolac 0.5% 1 drp ophthalmic-Right TID lisinopril-hydrochlorothiazide 10-12.5 mg 1 tab PO DAILY pantoprazole 40 mg PO DAILY prednisolone acetate 1% 1 drp ophthalmic (eye) TID simvastatin 40 mg PO DAILY HPI Comments Details: 82-year-old man with a history of longstanding hypertension and diabetes mellitus with CKD 3. He has a history of hyperkalemia back in April 2022. This was treated medically. He was using salt substitute while he was on lisinopril. Lisinopril was placed on hold and restarted again. Over the last few months serum potassium has been in the normal range. Baseline serum creatinine is around 1.5 mg/dL. He has a history of prostate cancer and is being followed by Dr. Beatty. He has a history of for shortness of breath on exertion. Seen by Dr. Ornelas. Echocardiogram was unremarkable. s/p stress test Also has history of COPD. Being followed by Dr. Luz He was scheduled for his sleep evaluation but never underwent. 11/09: Accompanied by son Isabela Cordova Had eye surgery PFSH Medical History (Updated 09/25/23 @ 11:23 by Dov Luz MD) Hypersomnia Stroke COPD exacerbation COPD (chronic obstructive pulmonary disease) Allergic rhinitis Surgical History Hx of cataract surgery (~09/2023) S/P tonsillectomy and adenoidectomy Hx of cholecystectomy History of appendectomy Family History Mother No problems noted. Father Heart disease Social History Alcohol intake: former Patient Tobacco Use Status: Former Tobacco user Years Smoked: 40 +/- Physical Exam Vital Signs: Last Vital Signs Pulse 79 11/10/23 11:00 BP 122/72 11/10/23 11:00 Pulse Ox 96 11/10/23 11:00 Oxygen Delivery Method Room Air 11/10/23 11:00 BMI result Body Mass Index 25.4 Neck Neck: Yes supple Resp Auscultation: clear to auscultation bilaterally Cardio Palpation: no palpable S3 Heart sounds: no rubs GI Palpation (GI): Soft to palpation Auscultation: normal bowel sounds Neuro Motor exam (neuro): no asterixis Results Reviewed Nephrology Results: Hgb 13.4 g/dl (14.0-18.0) L 10/17/23 WBC 11.3 X10*3/uL (4.8-10.8) H 10/17/23 Plt Count 192 X10*3/uL (160-400) 10/17/23 Sodium 137 mmol/L (135-145) 11/10/23 Potassium 5.3 mmol/L (3.3-5.1) H 11/10/23 Chloride 107 mmol/L (96-108) 11/10/23 Carbon Dioxide 21 mmol/L (22-29) L 11/10/23 BUN 64 mg/dL (9-16) H 11/10/23 Creatinine 2.00 mg/dL (0.5-1.4) H 11/10/23 Calcium 10.1 mg/dL (8.4-10.2) 11/10/23 Urine Creatinine 54.84 mg/dL 08/11/23 Assessment & Plan Assessment & Plan (1) CKD (chronic kidney disease) stage 3, GFR 30-59 ml/min: Code(s): N18.30 - Chronic kidney disease, stage 3 unspecified Category: Medical Qualifiers: Chronic kidney disease stage 3 subtype: stage 3b (GFR 30-44) Qualified Code(s): N18.32 - Chronic kidney disease, stage 3b Plan: CKD in the setting of longstanding hypertension and diabetes mellitus. Renal function is close to baseline. He has stage IIIB CKD. Goal is to slow the progression of renal disease. Continue to avoid nephrotoxic agents including NSAIDs. Encouraged to stay on low-sodium diet. He will benefit from a SGLT 2 inhibitor (2) SOB (shortness of breath) on exertion: Code(s): R06.02 - Shortness of breath Category: Medical Plan: Multifactorial. Being evaluated and followed by Cardiology and Pulmonary at this time. (3) Hyperkalemia: Code(s): E87.5 - Hyperkalemia Category: Medical Plan: In a setting of CKD. He should stay on low-potassium diet. Avoid salt substitutes. Closely monitor serum potassium periodically. Orders: Orders Basic Metabolic Panel 3 Months E87.5 - Hyperkalemia, N18.32 - Chronic kidney disease, stage 3b Coding Level of Care Code Est Pt Level 3 (04557) Diagnoses Stage 3b chronic kidney disease N18.32 Chronic kidney disease stage 3 subtype: stage 3b (GFR 30-44) SOB (shortness of breath) on exertion R06.02 Hyperkalemia E87.5
== END 2023-11-10 11:17 | disposition home or self-care (01) ==
PROVIDERS: PCP Internal Medicine; Visit Provider Internal Medicine Hypertension Specialist
DX: N18.32 Chronic kidney disease, stage 3b (principal); R06.02 Shortness of breath; E87.5 Hyperkalemia
CPT/HCPCS: 99213

== ENCOUNTER 2023-11-12 11:14 | Outpatient (AMB) | payer MEDICARE, SELFPAY ==
--- NOTE | 2023-11-12 11:58 | A.OFFVIS_ITS ---
Intake Visit Reasons: GnRH/PSA/Testo(set) Intake Note: Patient is present for Eligard Inj with labs follow up Allergies No Known Allergies [No Known Allergies*] Allergy (Verified 11/10/23 11:02) Medication List - Last Reconciled 11/12/23 by Gerson Beatty MD albuterol sulfate 90 mcg/actuation (ProAir HFA) 2 puffs inhalation Q4-6H PRN 60 days Breo Ellipta 100-25 mcg/dose (fluticasone furoate-vilanterol) 1 inh inhalation DAILY 90 days NS cetirizine 10 mg PO DAILY dorzolamide 2% 1 drp ophthalmic (eye) Q12H famotidine 40 mg PO DAILY PRN finasteride 5 mg PO DAILY 90 days fluticasone propionate 50 mcg/actuation (Flonase Allergy Relief) 1 spray intran bryan BID PRN glipizide ER 5 mg PO DAILY guaifenesin ER (Mucinex) 600 mg PO BID ketorolac 0.5% 1 drp ophthalmic-Right TID lisinopril-hydrochlorothiazide 10-12.5 mg 1 tab PO DAILY pantoprazole 40 mg PO DAILY prednisolone acetate 1% 1 drp ophthalmic (eye) TID simvastatin 40 mg PO DAILY HPI Comments Details: Jhonny is a pleasant male. He is a patient of Dr. Darby. He seen for the following urologic conditions - prostate cancer Here for second GnRH Good response to GnRH therapy. PSA nondetectable Plan for 18 month course. Recommend bone support during hormonal therapy with Citracal and vitamin-D Plan for last PSA in 6 months Continue finasteride PSA 02/10 13.2, 05/14 3.9 T 1.6, 08/12 <0.1 T6, 10/12 <0.1 GnRH 04/12, 11/11 Prostate cancer 10/1123 grade group 3, low volume Prostate biopsy for elevated PSA - 9.6, free 14% 80 g prostate at time of TRUS, pT1c Meghan score:?7 (4+3) (left apex lateral) 80% Periprostatic fat inv.: Not identified Seminal vesicle inv.: Not identified Perineural inv.: Not identified Lymphovascular invasion: Not identified [facility] Medical History (Updated 09/25/23 @ 11:23 by Dov Luz MD) Hypersomnia Stroke COPD exacerbation COPD (chronic obstructive pulmonary disease) Allergic rhinitis Surgical History Hx of cataract surgery (~09/2023) S/P tonsillectomy and adenoidectomy Hx of cholecystectomy History of appendectomy Family History Mother No problems noted. Father Heart disease Social History Alcohol intake: former Patient Tobacco Use Status: Former Tobacco user Years Smoked: 40 +/- Review of Systems Const Denies chills and Denies fever(s) Card Reports no additional complaints and Denies syncope Resp Denies cough GI Denies abdominal pain and Denies heartburn Reports as per HPI and Denies change in libido Neuro Denies syncope Psych Denies change in libido Endo Denies change in libido Physical Exam Const General: cooperative, healthy appearing, comfortable and no acute distress Orientation/consciousness: patient oriented x3 HEENT Face and sinus: Yes normal facial exam Mouth: moist mucous membranes Neck Neck: Yes normal visual inspection, Yes full ROM and Yes trachea midline Chest Chest palpation & inspection: normal inspection of the chest Resp Effort & Inspection: normal respiratory effort, able to speak in complete sentences and no respiratory distress GI Inspection: Yes normal to inspection Back/Spine/Pelvis Cervical Spine: normal cervical lordosis Thoracic/Lumbar Spine: thoracic and lumbar spine normal to inspection Skin General skin exam: no rashes or lesions noted Neuro General: patient oriented x3, gait normal, tone normal and moves all extremities Extrem General: Yes normal to inspection and Yes capillary refill normal Assessment & Plan Assessment & Plan (1) Prostate cancer: Code(s): C61 - Malignant neoplasm of prostate Category: Medical Plan Six-month follow-up Orders: Orders Prostate Specific Antigen 6 Months C61 - Malignant neoplasm of prostate Testosterone, Total 6 Months C61 - Malignant neoplasm of prostate Patient Instructions: Imaging studies, laboratory and physical exam results were discussed and reviewed in detail. No major barriers to patient understanding were identified. An opportunity to ask questions regarding the treatment plan was provided. All questions were answered. The patient expressed understanding and agreement with the above treatment plan. The patient is aware they should contact our office by phone for worsening of their current condition or the appearance of new urologic symptoms. Compliance is encouraged with any medications and followup testing that is ordered. It is a privilege to participate in the urologic care of your patient. If you have any questions or concerns regarding treatment for the above conditions, or other urologic issues, please do not hesitate to contact me. The office telephone contact is [phone]. This note is constructed using voice recognition software. While every effort has been made to ensure accuracy auto mechanic errors may have been included. Yours sincerely, Dr Gerson Beatty MD, [facility] - Urology Providers of Expert, Compassionate Care for the Genitourinary System Coding Level of Care Code Est Pt Level 3 (76659) Diagnoses Prostate cancer C61
== END 2023-11-12 12:19 | disposition home or self-care (01) ==
PROVIDERS: PCP Internal Medicine; Visit Provider Urology
DX: C61 Malignant neoplasm of prostate (principal)
CPT/HCPCS: 99213

== ENCOUNTER → 2023-11-12 11:14 | Outpatient (BNVA) | payer MEDICARE, SELFPAY | PROVIDERS: PCP Internal Medicine; Visit Provider Urology | DX: C61 Malignant neoplasm of prostate (principal) | CPT/HCPCS: 96402; 99212; J9217 ==

== ENCOUNTER 2024-02-16 07:30 | Outpatient (REF) | payer MEDICARE, SELFPAY ==
[2024-02-16 11:06] LABS: Estimated Average Glucose 157 mg/dL; Hemoglobin A1C 180.3284 umol/L; Hemoglobin A1c % 7.1 % (<6.0); Total Hemoglobin (HGBA1C) 3323.6935 umol/L
[2024-02-16 12:16] LABS: Alanine Aminotransferase 9 U/L (0-40); Alkaline Phosphatase 78 U/L (39-117); Anion Gap 9 (12-20); Aspartate Amino Transferase 20 U/L (5-37); Bilirubin Total 0.4 mg/dL (0.0-1.0); Blood Urea Nitrogen 40 mg/dL (9-16); Carbon Dioxide 26 mmol/L (22-29); Chloride 108 mmol/L (96-108); Estimated Glomerular Filt Rate 38; Glucose Random 177 mg/dL (60-115); Potassium 4.4 mmol/L (3.3-5.1); Sodium 139 mmol/L (135-145); Total Protein 6.9 g/dL (6.5-8.0)
== END 2024-02-16 07:31 | disposition home or self-care (01) ==
LOC: HO.10HDL 07:30
PROVIDERS: Referring Provider Internal Medicine; Visit Provider Internal Medicine Hypertension Specialist
DX: E11.40 Type 2 diabetes mellitus with diabetic neuropathy, unspecified (principal); E87.5 Hyperkalemia; I10 Essential (primary) hypertension; I12.9 Hypertensive chronic kidney disease with stage 1 through stage 4 chronic kidney disease, or unspecified chronic kidney disease
CPT/HCPCS: 36415; 80053; 83036

== ENCOUNTER 2024-03-08 09:25 | Outpatient (AMB) | payer MEDICARE, SELFPAY ==
--- NOTE | 2024-03-08 09:31 | HO.NEPHOV_ITS ---
Vital Signs 03/08/24 09:34 Height 5 ft 9 in Weight 168 lb BMI 24.8 BP 112/60 Blood Pressure Location Rt brachial Position Sitting Pulse 81 Pulse Source Pulse Oximeter Pulse Oximetry (%) 96 Oxygen Delivery Method Room Air Intake Visit Reasons: Nov follow up/ Conf Can Solderer Required: No Accompanied by: Self / Same As Patient Allergies No Known Allergies [No Known Allergies*] Allergy (Verified 03/08/24 09:36) Medication List - Last Reconciled 03/08/24 by Clive Boykin MD albuterol sulfate 90 mcg/actuation (ProAir HFA) 2 puffs inhalation Q4-6H PRN 60 days Breo Ellipta 100-25 mcg/dose (fluticasone furoate-vilanterol) 1 inh inhalation DAILY 90 days NS cetirizine 10 mg PO DAILY dorzolamide 2% 1 drp ophthalmic (eye) Q12H famotidine 40 mg PO DAILY PRN finasteride 5 mg PO DAILY 90 days fluticasone propionate 50 mcg/actuation (Flonase Allergy Relief) 1 spray intranasal BID PRN glipizide ER 5 mg PO DAILY guaifenesin ER (Mucinex) 600 mg PO BID ketorolac 0.5% 1 drp ophthalmic-Right TID lisinopril-hydrochlorothiazide 10-12.5 mg 1 tab PO DAILY loperamide 2 mg PO DAILY PRN pantoprazole 40 mg PO DAILY prednisolone acetate 1% 1 drp ophthalmic (eye) TID simvastatin 40 mg PO DAILY HPI Comments Details: 82-year-old man with a history of longstanding hypertension and diabetes mellitus with CKD 3. He has a history of hyperkalemia back in April 2022. This was treated medically. He was using salt substitute while he was on lisinopril. Lisinopril was placed on hold and restarted again. Over the last few months serum potassium has been in the normal range. Baseline serum creatinine is around 1.5 mg/dL. He has a history of prostate cancer and is being followed by Dr. Beatty. He has a history of for shortness of breath on exertion. Seen by Dr. Ornelas. Echocardiogram was unremarkable. s/p stress test Also has history of COPD. Being followed by Dr. Luz He was scheduled for his sleep evaluation but never underwent. 11/09: Accompanied by son - Art;Had eye surgery 03/08/24 Overall doing well. No urinary sypmtoms. [facility] Medical History (Updated 09/25/23 @ 11:23 by Dov Luz MD) Hypersomnia Stroke COPD exacerbation COPD (chronic obstructive pulmonary disease) Allergic rhinitis Surgical History Hx of cataract surgery (~09/2023) S/P tonsillectomy and adenoidectomy Hx of cholecystectomy History of appendectomy Family History Mother No problems noted. Father Heart disease Social History Alcohol intake: former Patient Tobacco Use Status: Former Tobacco user Years Smoked: 40 +/- Physical Exam Vital Signs: Last Vital Signs Pulse 81 03/08/24 09:34 BP 112/60 03/08/24 09:34 Pulse Ox 96 03/08/24 09:34 Oxygen Delivery Method Room Air 03/08/24 09:34 BMI result Body Mass Index 24.8 Neck Neck: Yes supple Resp Auscultation: clear to auscultation bilaterally Cardio Palpation: no palpable S3 Heart sounds: no rubs GI Palpation (GI): Soft to palpation Auscultation: normal bowel sounds Neuro Motor exam (neuro): no asterixis Results Reviewed Nephrology Results: Hgb 13.4 g/dl (14.0-18.0) L 10/17/23 WBC 11.3 X10*3/uL (4.8-10.8) H 10/17/23 Plt Count 192 X10*3/uL (160-400) 10/17/23 Sodium 139 mmol/L (135-145) 02/16/24 Potassium 4.4 mmol/L (3.3-5.1) 02/16/24 Chloride 108 mmol/L (96-108) 02/16/24 Carbon Dioxide 26 mmol/L (22-29) 02/16/24 BUN 40 mg/dL (9-16) H 02/16/24 Creatinine 1.71 mg/dL (0.5-1.4) H 02/16/24 Calcium 9.0 mg/dL (8.4-10.2) 02/16/24 Urine Creatinine 54.84 mg/dL 08/11/23 Assessment & Plan Assessment & Plan (1) CKD (chronic kidney disease) stage 3, GFR 30-59 ml/min: Code(s): N18.30 - Chronic kidney disease, stage 3 unspecified Category: Medical Qualifiers: Chronic kidney disease stage 3 subtype: stage 3b (GFR 30-44) Qualified Code(s): N18.32 - Chronic kidney disease, stage 3b Plan: CKD in the setting of longstanding hypertension and diabetes mellitus. Renal function is close to baseline. He has stage IIIB CKD. Goal is to slow the progression of renal disease. Continue to avoid nephrotoxic agents including NSAIDs. Encouraged to stay on low-sodium diet. He will benefit from a SGLT 2 inhibitor (2) SOB (shortness of breath) on exertion: Code(s): R06.02 - Shortness of breath Category: Medical Plan: Multifactorial. Being evaluated and followed by Cardiology and Pulmonary at this time. (3) Hyperkalemia: Code(s): E87.5 - Hyperkalemia Category: Medical Plan: In a setting of CKD. He should stay on low-potassium diet. Avoid salt substitutes. Closely monitor serum potassium periodically. Orders: Orders Basic Metabolic Panel 5 Months N18.32 - Chronic kidney disease, stage 3b Coding Level of Care Code Est Pt Level 4 (04971) Diagnoses Stage 3b chronic kidney disease N18.32 Chronic kidney disease stage 3 subtype: stage 3b (GFR 30-44) SOB (shortness of breath) on exertion R06.02 Hyperkalemia E87.5
[2024-03-08 09:34] VITALS: BP 112/60; PULSE 81; O2SAT 96; BMI 24.8
== END 2024-03-08 09:51 | disposition home or self-care (01) ==
PROVIDERS: PCP Internal Medicine; Visit Provider Internal Medicine Hypertension Specialist
DX: N18.32 Chronic kidney disease, stage 3b (principal); R06.02 Shortness of breath; E87.5 Hyperkalemia
CPT/HCPCS: 99214

== ENCOUNTER → 2024-03-08 09:25 | Outpatient (BNVA) | payer MEDICARE, SELFPAY | PROVIDERS: PCP Internal Medicine; Visit Provider Internal Medicine Hypertension Specialist | DX: I12.9 Hypertensive chronic kidney disease with stage 1 through stage 4 chronic kidney disease, or unspecified chronic kidney disease (principal); N18.32 Chronic kidney disease, stage 3b; R06.02 Shortness of breath; E87.5 Hyperkalemia | CPT/HCPCS: 99212 ==

== ENCOUNTER 2024-03-16 13:11 | Outpatient (REF) | payer MEDICARE, SELFPAY | END 2024-03-16 13:12 | disposition home or self-care (01) | LOC: HO.US 13:11 | PROVIDERS: PCP Internal Medicine; Visit Provider Surgery Vascular Surgery | DX: I73.9 Peripheral vascular disease, unspecified (principal) | CPT/HCPCS: 93922; 93925 ==

== ENCOUNTER 2024-03-30 10:57 | Outpatient (AMB) | payer MEDICARE, SELFPAY ==
[2024-03-30 11:26] VITALS: BP 132/68; PULSE 79; O2SAT 97; BMI 25.1
--- NOTE | 2024-03-30 11:26 | A.OFFVIS_ITS ---
Vital Signs 03/30/24 11:26 Height 5 ft 9 in Weight 169 lb 12.095 oz BMI 25.1 BP 132/68 Blood Pressure Location Lt brachial Position Sitting Pulse 79 Pulse Source Pulse Oximeter Pulse Oximetry (%) 97 Oxygen Delivery Method Room Air Intake Visit Reasons: COPD Intake Note: pt is here for follow up and states he has a cough with some production, for quite a while, ususally when eating he non stop coughing. Piecer Up Required: No Allergies No Known Allergies [No Known Allergies*] Allergy (Verified 03/30/24 11:46) Medication List - Last Reconciled 03/30/24 by Dov Luz MD albuterol sulfate 90 mcg/actuation (ProAir HFA) 2 puffs inhalation Q4-6H PRN 60 days Breo Ellipta 100-25 mcg/dose (fluticasone furoate-vilanterol) 1 inh inhalation DAILY 90 days NS cetirizine 10 mg PO DAILY dorzolamide 2% 1 drp ophthalmic (eye) Q12H famotidine 40 mg PO DAILY PRN finasteride 5 mg PO DAILY 90 days fluticasone propionate 50 mcg/actuation (Flonase Allergy Relief) 1 spray intranasal BID PRN glipizide ER 5 mg PO DAILY guaifenesin ER (Mucinex) 600 mg PO BID ketorolac 0.5% 1 drp ophthalmic-Right TID lisinopril-hydrochlorothiazide 10-12.5 mg 1 tab PO DAILY loperamide 2 mg PO DAILY PRN pantoprazole 40 mg PO DAILY prednisolone acetate 1% 1 drp ophthalmic (eye) TID simvastatin 40 mg PO DAILY Do you need a note to return to daycare/school/sports/work: No HPI HPI COPD: Details: 83 years old gentleman is a well known case of chronic obstructive pulmonary disease and allergic rhinitis. He comes after 6 months for his routine follow-up. Today his main complaint is cough , which is more towards the evenings and especially after eating supper. Even after breakfast and lunch he does get some increased cough. He has a feeling that this some mucus that he can not clear up. Due to his chronic allergic rhinitis he does longstanding complaint of postnasal drip, and runny nose almost on a daily basis. He drinks 1 glass of milk ( 1 % ) with supper. He has mild case of tremors and probably does have only parkinsonism. Which may be causing some muscular discoordination. [facility] Medical History (Updated 03/30/24 @ 11:54 by Dov Luz MD) Cough Hypersomnia Stroke COPD exacerbation COPD (chronic obstructive pulmonary disease) Allergic rhinitis Surgical History Hx of cataract surgery (~09/2023) S/P tonsillectomy and adenoidectomy Hx of cholecystectomy History of appendectomy Family History Mother No problems noted. Father Heart disease Social History Alcohol intake: former Patient Tobacco Use Status: Former Tobacco user Years Smoked: 40 +/- Review of Systems Const All systems reviewed & are unremarkable except as noted in HPI and below Eyes Reports no additional complaints ENT Denies vertigo, Denies dizziness and Reports nasal congestion (Mild intermittent) Card Denies chest pain, Denies irregular heart rhythm and Denies leg edema Resp Reports as per HPI GI Reports no additional complaints Reports no additional complaints Musc Reports no additional complaints Skin/Breast Reports system reviewed and no additional complaints, except as documented Neuro Denies vertigo and Denies dizziness Psych Reports no additional complaints Endo Reports no additional complaints Physical Exam Vital Signs: Last Vital Signs Pulse 79 03/30/24 11:26 BP 132/68 03/30/24 11:26 Pulse Ox 97 03/30/24 11:26 Oxygen Delivery Method Room Air 03/30/24 11:26 BMI result Body Mass Index 25.1 Const General: healthy appearing, comfortable, no acute distress, alert and awake Orientation/consciousness: patient oriented x3 HEENT Head: Yes normal to inspection General nose exam: No nasal polyps present and No nasal discharge present Face and sinus: Yes sinuses nontender Mouth: oropharynx normal Throat: Yes posterior oropharynx normal (There is some a whitish mucus in the nasopharynx) Eyes General: appearance normal, both eyes and all related structures Neck Neck: Yes normal visual inspection, Yes no lymphadenopathy, Yes trachea midline and Yes no JVD Thyroid: Thyroid normal Chest Chest palpation & inspection: normal inspection of the chest, normal palpation of entire chest wall and no tenderness Resp Other: Percussion note resonant, breath sounds are distant with prolonged expiratory phase. But both lungs are clear without wheezes crepitations or rhonchi . Cardio Palpation: normal PMI Rate: regular rate Rhythm: regular rhythm Heart sounds: no gallops and no murmurs Peripheral pulses: Peripheral pulses 2+ throughout GI Palpation (GI): Soft to palpation, nontender, No hepatosplenomegaly present and no masses Auscultation: normal bowel sounds Back/Spine/Pelvis Thoracic/Lumbar Spine: thoracic and lumbar spine normal to inspection and thoraco-lumbar ROM limited Skin General skin exam: no rashes or lesions noted Neuro General: patient oriented x3 and no focal motor deficits Cranial nerves: Yes CN's II-XII intact bilaterally Extrem General: Yes normal to inspection, Yes no clubbing, cyanosis or edema and Yes no calf tenderness Psych Appearance: grossly normal and well kempt Speech and movement: Normal speech and movement present Assessment & Plan Assessment & Plan (1) COPD (chronic obstructive pulmonary disease): Comment: COPD WITH ELEMENT OF MILD ASTHMA, IS CHRONIC AND REMAINS VERY STABLE . Code(s): J44.9 - Chronic obstructive pulmonary disease, unspecified Category: Medical Plan: CONTINUE TO USE BREO ELLIPTA 100-251 INHALATION DAILY. USE ALBUTEROL HFA 2 PUFFS Q 6 HOURS P.R.N. (2) Allergic rhinitis: Comment: CHRONIC ,MILD TO MODERATE , REMAINS WELL CONTROLLED . BUT DOES RESULT IN CHRONIC POSTNASAL DISCHARGE Code(s): J30.9 - Allergic rhinitis, unspecified Category: Medical Plan: CONTINUE USING FLONASE-52 SPRAY IN EACH NOSTRIL DAILY CETIRIZINE 10 MG ONCE A DAY P.R.N. (3) Cough: Comment: HE HAS CHRONIC COUGH ASSOCIATED WITH HIS COPD AND ALLERGIC RHINITIS. CURRENTLY IT IS GETTING WORSE AND ESPECIALLY TOWARDS THE EVENING . HE DESCRIBES THAT COUGH IS UNSTOPPABLE AFTER EATING, HE DOES HAVE SOME DIFFICULTY IN SWALLOWING AT TIMES. HE HAS FINE TREMORS OF THE HANDS AND HIS GAIT IS SOMEWHAT SLOW, THERE IS POSSIBILITY OF MILD PARKINSONISM TYPE DISORDER. Code(s): R05.9 - Cough, unspecified Category: Medical Plan: I DISCUSSED WITH HIM ALL THE POSSIBLE CAUSES OF COUGH. MOST LIKELY IT IS RELATED TO CHRONIC OBSTRUCTIVE PULMONARY DISEASE AND CHRONIC ALLERGIC RHINITIS. IT MAY BE AGGRAVATED BY DRINKING MILK AT SUPPER TIME. THERE IS A POSSIBILITY OF SAM PHARYNGEAL MUSCULAR DISCOORDINATION AND RETENTION OF FOOD PARTICLES .AFTER EATING Plan DISCUSSED WITH HIM ALL POSSIBLE REASONS FOR COUGH. TRY CONSERVATIVE MEASURES INCLUDING ; BE WATCHFUL WHEN EATING, AND USE FREQUENT SIPS OF WATER . MAY USE ALBUTEROL HFA 2 PUFFS BEFORE EATING SUPPER. CONTINUE TO USE MUCINEX 600 MG B.I.D.. USE VAPORIZER IN THE BEDROOM DURING WINTER MONTHS. MAY ELIMINATE USING MILK. IF THESE MEASURES DO NOT REDUCE HIS COUGH THEN HE SHOULD HAVE A BARIUM SWALLOW. Coding Level of Care Code Est Pt Level 3 (88355) Diagnoses COPD (chronic obstructive pulmonary disease) J44.9 Allergic rhinitis J30.9 Cough R05.9
--- OUTSIDE RECORDS SUMMARY | 2024-03-31 20:31 | XMS_ITS | Patient Health Record ---
Author Organization [facility] Address [address] [place] [address] Care Team Providers Care Online Journalist Name Role Phone Monica Darby Primary Care Provider Unavailab Julio Cesar Vides Unavailable [phone] REASON FOR REFERRAL Referring Provider First Name Monica Referring Provider Last Name Wilner Referring Provider Speciality Internal M edicine Referred Organization [facility] Referred Provider Julio Cesar Chaparro Referred Address [address],[place], [place],[address],[place] Referred Provider Specialty Gastroentero logy Referral Priority Routine MEDICATIONS Medication SIG (Take, [...] 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) Active confirmed 260793908 Problem Diarrhea, unspecified type (R19.7) Active confirmed [id number] Problem 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) Active confirmed [id number] PLAN OF TREATMENT Pending Test Test Name Order Date IRON + IBC (FE) 08/25/2018 IRON + IBC (FE) 05/20/2019 IRON + IBC (FE) 09/28/2018 FERRITIN 09/28/2018 FERRITIN 08/25/2018 FERRITIN 05/20/2019 CBC w DIFF 09/28/2018 CBC w DIFF 08/25/2018 CBC w DIFF 05/20/2019 Next Appt Details Provider Name:Julio Cesar Chaparro , 04/27/2024 11:10:00 AM, [address] [place] [address], [address], [place], [address], Insurance Providers Payer Name Payer Address Payer Phone Subscriber Number Group Number Insured Name Patient Relationship to Insured Coverage Start Date Coverage End Date [employer] [address] [place] [phone] [id number] LOPEZ CASEY Self - patient is the insured MEDICAL (GENERAL) HISTORY Medical History History ICD Code Stroke 01/2018 and another 2004 NIDDM Hypertension Asthma COPD Denies [place],renal disease Iron deficiency anemia-he wa s hospitalized [...]
--- OUTSIDE RECORDS SUMMARY | 2024-03-31 20:31 | XMS_ITS ---
Author Organization [facility] Address [address] [address] Care Team Providers Care Community Support Associate Name Role Phone Monica Darby Primary Care Provider Unavailab Fabricio Granados Unavailable [phone] Allergies No Known Allergies REASON FOR VISIT At Risk Footcare, Painful Nail(s) aggrevated by shoes and causing difficulty standing/walking., Skin problem(s) Medications Medication SIG (Take, Route, Frequency, Duration) Notes Start Date End Date Status Breo Ellipta 100-25 MCG/INH as directed Inhalation Activ e Sertraline HCl 25 MG 1 tablet Orally Onc e a day for 30 day(s) Active glipiZIDE 5 MG 1 tablet 30 minutes before breakfast Orally Once a day for 30 day(s) Active Lisinopril 5 MG 1 tablet Orally Once a day for 30 day(s) Active Clopidogrel Bisulfate 75 MG 1 tablet Orally Once a day for 30 day(s) Active Famotidine 40 MG 1 tablet at bedtime Orally Once a day for 30 day(s) Active metFORMIN HCl 500 MG 1 tablet with a alfonso l Orally Once a day for 30 day(s) Not-Taking Mucinex DM 30-600 MG as directed Orally Active immodium Active Propranolol HCl 40 MG as directed Orally Active Extra Depth Orthopedic Shoes, (1) Pair With (3) Pair Custom Heat Molded Multidensity Innersoles Dx: NIDDM/PVD(E11.51), Hammertoe Foot Deformity(M20.41,M20.42) , Preulcerative Skin Lesion(s)(L85.1) Wear Daily for 365 days 02/04/2023 Active Simvastatin 40 MG 1 tablet in the even ing Orally Once a day for 30 day(s) Active Ammonium Lactate 12 % 1 application Exte rnally Twice a day for 30 days Active Social History Tobacco Use: Social History Observation Description Date Details (start date - stop date) Former Smoker NA - NA Tobacco Use/Smoking Question Answer Notes Are you a: former smoker Additional Findings: Tobacco Non-User Current no n-smoker Tobacco use other than smoking: Question Answer Notes Are you an other tobacco user? No Vital Signs Height 5 ft 6 in in 02/24/2024 Weight 160 lbs 02/24/2024 BMI 25.82 kg/m2 02/24/2024 Procedures Procedure Date Ordered Date Performed Result Body Sit e 06463-RGOJEKQ NAIL, 1-02/24/2024 N/A 66318-GSIK SKIN LESIONS, OVER 4 02/24/2024 N/A V2613-[id number] DYSTROPHIC NAILS ANY # 02/24/2024 N/A Encounters Encounter Location Date Provider Diagnosis [facility] [address] [address] 02/24/2024 Fabricio Juan Type 2 diabetes mellitus with diabetic peripheral angiopathy without gangrene E11.51 ; Tinea unguium B35.1 ; Pain in right toe(s) M79.674 ; Pain in left toe(s) M79.675 and Xerosis of skin L85.3 Assessments Encounter Date Diagnosis (ICD Code) Assessment Notes Treatment Notes Treatment Clinical Notes Section Notes 02/24/2024 Type 2 diabetes mellitus with diabetic peripheral angiopathy without gangrene (ICD-10 - E11.51) 02/24/2024 Tinea unguium (ICD-10 - B35.1) 02/24/2024 Pain in right toe(s) (ICD-10 - M79.674) 02/24/2024 Pain in left toe(s) (ICD-10 - M79.675) 02/24/2024 Xerosis of skin (ICD-10 - L85.3) 02/24/2024 Other Plan Of Treatment Pending Test Test Name Order Date 49078-BMKWVXJ NAIL, 1-5 02/24/2024 17612-FEXM SKIN LESIONS, OVER 4 02/24/20 24 F6451-TFTLVJBW DYSTROPHIC NAILS ANY # Next Appt Details Follow Up: prn, Reason: Provider Name:Fabricio Juan , 05/25/2024 11:30:00 AM, [address] [place], [address], Procedure Notes * Category Sub-Category Detail Notes Keratoma Treatment Parring or Cutting o f Benign Hyperkeratotic Lesion(s) (-57) More than 4 Lesions - The Benign hyperkeratotic lesions, as described above were pared, and/or cut utilizing a sterile 15 blade, tissue nippers, and/or dremel - 53253 , Q8 Debride Nails 1-5 Procedure: Performance of this nail treatment by a nonprofessional would put this patients foot and overall health at risk. Therefore, nail debridement was performed extensively to reduce/remove overall nail length, girth, thickness, subungual debris, and necrotic tissue, by manual and/or electrical means through the use of a nail nipper and/or dremel-type bark grinder, to a more viable healthy nail plate or bed tissue 1-5. Silver nitrate used for any petechial bleeding as necessary. Definitive antifungal treatment options have been reviewed and discussed with the patient. The patient chooses, no pharmaceutical tx - 27413 Nail Reduction Nail Reduction (-27) Trimming o f dystrophic nails performed to reduce/remove overall nail length and girth, by manual and electrical means with use of a nail nipper and/or dremel, to more viable healthy nail plate or bed tissue, any number - G0127 , Q8 Progress Notes * Jesenia CASEYOB:1940 (83 yo M)Acc No.[id number]:02/24/2024 Progress Note Patient:?Fady Jhonny Provider:?Fabricio Juan DPM :1940???Age:83 Y???Sex:Male Romel e:02/24/2024 Address:[address] [place] [address] [id number] Pcp:Monica Darby Subjective: * Chief Complaints: * ???At Risk FootcarePainful N ail(s) aggrevated by shoes and causing difficulty standing/walking.Skin problem(s) * HPI: ???At Risk footcare:?Pt States Last PCP Visit:?Date?02/16/2024 ???Skin problems:?Nature:?dryness , scaling.?Location:?B/L .?Treatments:?medication ( AM Lactin ) , states adherence to recommended treatment application.? * ROS:?General/Constitutional:?Nausea?denies.?Vomiting?denies.?Hunger Thirst?denies.?Loss appetite?denies.?Chills?denies.?Fatigue?denies.?Fever?denies.?Night Sweats?denies.?Unexplained weight loss?denies.?Unexplained weight gain?denies.?HEENTM:?Dentures?admits.?Dizziness?denies.?Glasses/contacts?admits.?Retinopathy?de nies.?Blurred/double vision?denies.?TMJ?denies.?Discharge/drainage?denies.?Implants?denies.?Sore throat?denies.?Dental implants?denies.?Hard of hearing ?denies.?Difficulty chewing/swallowing/speaking?denies.?Nose bleeds?denies.?Sore mouth?denies.?Respiratory:?On Oxygen?denies.?Pneumonia/pleurisy?denies.?Bronchitis?denies.?Emphysema?admits.?C oughing?admits.?Cough blood?denies.?Shortness of breath?admits.?Wheezing?denies.?Cardiovascular:?Pacemaker?denies.?MVP?denies.?WPW?denies.?CHF?denies.?Heart attack?denies.?Septal defect?denies.?Rapid beat?denies.?Chest pain ?denies.?Atrial Fib.?denies.?Murmur/Palpitations?denies.?Gastrointestinal:?Hemorrhoids?denies.?Stomach/Abdominal pain?admits.?Dark blood stool?denies.?Irritable bowel ?denies.?Constipation?denies.?Diarrhea?admits.?Hematology:?Swelling?admits.?Clots?denies.?Varicose Veins?denies.?Bruising?denies.?Bleeding problem?denies.?Genitourinary:?Blood urine?denies.?Frequent/Painfu/urination/bladder control?denies.?Kidney stones?denies.?Infection (UTI)?denies.?Nephropathy?denies.?sex trans dis (STD)?denies.?Prostate?denies.?Musculoskeletal:?Hammertoes?admits.?Bunions?denies.?Back Pain?denies.?Muscle Cramps/ Resting?denies.?Muscle cramps / walking?denies.?Generalized aches and pains?denies.?Weakness?admits, that is generalized.?Integ.:?Marquez?denies.?Scars?denies.?Corns/calluses?admits.?Ingrown nails?admits.?Painful nails?admits.?Open Sores?denies.?Rashes?denies.?Neurologic:?Difficulty sleeping?denies.?Brain disorder?denies.?Numbness?denies.?Balance trouble?denies.?Confusion?denies.?Fainting/blackouts?denies.?Tingling?denies.?Tr emors?denies.? * Medical History:? * Surgical History:?appendecto my gall bladder cataract surgery * Hospitalization/Major Diagno stic Procedure:?Ultrasound both legs for veins 2021 * Family History:?Mother: dece ased.?Father: .?Siblings: Sister- Cancer, diagnosed with Diabetic - NIDDM, Other malignant neoplasm of unspecified site.? * Social History:?Tobacco Use:?Tobacco Use/Smoking?Are you a:?former smoker ?Additional Findings: Tobacco Non-User?Current non-smoker ?Tobacco use other than smoking?Are you an other tobacco user??No ???Miscellaneous:?Caffeine: yes, frequency:, 1-2 cups per day. ?Children: yes. ?Exercise: yes, Car shows, cruise nights. ?Marital status: . ?Occupation: Retired. * Medications:?TakingPropranol ol HCl 40 MG Tablet as directed Orally immodium Famotidine 40 MG Tablet 1 tablet at bedtime Orally Once a dayMucinex DM 30-600 MG Tablet Extended Release 12 Hour as directed Orally Breo Ellipta 100-25 MCG/INH Aerosol Powder Breath Activated as directed Inhalation glipiZIDE 5 MG Tablet 1 tablet 30 minutes before breakfast Orally Once a daySertraline HCl 25 MG Tablet 1 tablet Orally Once a dayClopidogrel Bisulfate 75 MG Tablet 1 tablet Orally Once a dayLisinopril 5 MG Tablet 1 tablet Orally Once a daySimvastatin 40 MG Tablet 1 tablet in the evening Orally Once a dayExtra Depth Orthopedic Shoes, (1) Pair With (3) Pair Custom Heat Molded Multidensity Innersoles . Dx: NIDDM/PVD(E11.51), Hammertoe Foot Deformity(M20.41,M20.42), Preulcerative Skin Lesion(s)(L85.1) Wear DailyAmmonium Lactate 12 % Cream 1 application Externally Twice a dayTaking Propranolol HCl 40 MG Tablet as directed Orally Taking immodium Taking Famotidine 40 MG Tablet 1 tablet at bedtime Orally Once a dayTaking Mucinex DM 30-600 MG Tablet Extended Release 12 Hour as directed Orally Taking Breo Ellipta 100-25 MCG/INH Aerosol Powder Breath Activated as directed Inhalation Taking glipiZIDE 5 MG Tablet 1 tablet 30 minutes before breakfast Orally Once a dayTaking Sertraline HCl 25 MG Tablet 1 tablet Orally Once a dayTaking Clopidogrel Bisulfate 75 MG Tablet 1 tablet Orally Once a dayTaking Lisinopril 5 MG Tablet 1 tablet Orally Once a dayTaking Simvastatin 40 MG Tablet 1 tablet in the evening Orally Once a dayTaking Extra Depth Orthopedic Shoes, (1) Pair With (3) Pair Custom Heat Molded Multidensity Innersoles . Dx: NIDDM/PVD(E11.51), Hammertoe Foot Deformity(M20.41,M20.42), Preulcerative Skin Lesion(s)(L85.1) Wear DailyTaking Ammonium Lactate 12 % Cream 1 application Externally Twice a dayNot-Taking/PRNmetFORMIN HCl 500 MG Tablet 1 tablet with a meal Orally Once a dayMedication List reviewed and reconciled with the patientNot-Taking/PRN metFORMIN HCl 500 MG Tablet 1 tablet with a meal Orally Once a dayMedication List reviewed and reconciled with the patient * Allergies:?N.K.D.A.yes[Aller gies Verified] Objective: * Vitals:?Ht: 5 ft 6 in, Wt: 1 60, BMI: 25.82, Shoe size: 9, BS: 100, Wt-k.57 kg. * ???Past Orders: ???Lab:HEMOGLOBIN A1C (GLYCO HEMOGLOBIN) (Order Date - 08/20/2023) (Collection Date - 08/20/2023) ? Value Reference Range ?HEMOGLOBIN A1C % (HH) 6.6 * Examination: ???Vascular: ?DP PULSES(B):? 0/4, B/L.?PT PULSES(B):? 0/4, B/L.?CAPILLARY FILL TIME:? delayed, all digits, B/L.?TROPHIC CONDITION-TEXTURE/ELASTICITY/TURGOR/HAIR GROWTH(B):? decreased, fragile, thin, shiny skin, with sparse to absent hair growth, B/L.?TEMPERTURE GRADIENT(C):? decreased, cool to cool, proximal to distal, B/L.?PIGMENTATION:? rubrous, B/L.?EDEMA(C):? 1/4, non-pitting, without aching pain, B/L, Leg(s), Ankle(s).?CLAUDICATION(C):?denies, B/L.?REST PAIN:?denies, B/L.?Nails: ?NAILS are:?Elongated, overgrown, dystrophic, lytic, greater than 3mm thick, discolored and friable with crumbly malodorous subungual debris, with pain on palpation, TA, T5, remaining nails are elongated, overgrown, dystrophic.?Dermatologic: ?SKIN FINDINGS:? Skin exam reveals Keratotic lesion(s) located at, SUB MTH (s), 1, B/L , SUB MTH (s), 5, B/L , Heel(s), B/L , Skin shows approximately 80-90% LESS, sign(s) of, dryness, scaling, in a stocking fashion, no fissure(s) present, B/L.? Assessment: * Assessment: 1.?Tinea unguium - B35.1?2.? Type 2 diabetes mellitus with diabetic peripheral angiopathy without gangrene - E11.51?3.?Pain in right toe(s) - M79.674?4.?Pain in left toe(s) - M79.675?5.?Xerosis of skin - L85.3, Acute problem, Stable,Response to treatment - Improvement? Plan: * Treatment: 2.?Type 2 diabetes mellitus with diabetic peripheral angiopathy without gangrene?Procedure: 07210-YDNI SKIN LESIONS, OVER 4 ?Procedure: N6623-BGQMLNXM DYSTROPHIC NAILS ANY # * Procedures:?Debride Nails 1-5:?Procedure:?Performance of this nail treatment by a nonprofessional would put this patients foot and overall health at risk. Therefore, nail debridement was performed extensively to reduce/remove overall nail length, girth, thickness, subungual debris, and necrotic tissue, by manual and/or electrical means through the use of a nail nipper and/or dremel-type bark grinder, to a more viable healthy nail plate or bed tissue 1-5. Silver nitrate used for any petechial bleeding as necessary. Definitive antifungal treatment options have been reviewed and discussed with the patient. The patient chooses, no pharmaceutical tx - 38606.?Keratoma Treatment:?Parring or Cutting of Benign Hyperkeratotic Lesion(s)?(-57) More than 4 Lesions - The Benign hyperkeratotic lesions, as described above were pared, and/or cut utilizing a sterile 15 blade, tissue nippers, and/or dremel - 39671 , Q8.?Nail Reduction:?Nail Reduction?(-27) Trimming of dystrophic nails performed to reduce/remove overall nail length and girth, by manual and electrical means with use of a nail nipper and/or dremel, to more viable healthy nail plate or bed tissue, any number - G0127 , Q8.? * Procedure Codes:?G0127 TIFFANIE ING DYSTROPHIC NAILS ANY #, Modifiers: XS , [id number] DEBRIDE NAIL, 1-5, Modifiers: XS 45829 TRIM SKIN LESIONS, OVER 4, Modifiers: XS , Q8 * Preventive Medicine:? ??Counseling:?Discussion:?-12: Office or other outpatient visit for the evaluation and management of an established patient, which required a medically appropriate history and/or examination and STRAIGHTFORWARD level of MEDICAL DECISION MAKING, 1 SELF-LIMITED OR MINOR PROBLEM, MINIMAL- NO AMOUNT/COMPLEXITY OF DATA TO BE REVIEWED/ANALYZED, AND MINIMAL RISK OF COMPLICATION/MORBIDITY. The visit on the day of the encounter encompassed interpreting the data and educating the patient as to the nature of their condition, treatment options available according to their individual PMH, meds, allergies, and overall health/living conditions, as well as any potential risks or complications that may occur from a failure to adhere to, and participate in, the recommended course of therapy. The discussion included a complete verbal, and/or written explanation of the examination results, any x-rays taken, the proposed diagnosis, and outline of the treatment plan. A schedule for future care needs was also explained. The patient verbalized an understanding of the instructions at this time and agreed to be an active participant in their treatment. If the patient should think of any questions or concerns after the visit, I have encouraged the patient to call the office.?Xerosis:?Given recent successful results to treatment, The patient is to cont the rx cream as directed.? * Follow Up:?prn * Images: * Sign off status: Completed true * Provider:?Fabricio Juan DPM Date:?2023 Generated for Danilo moreno/Kofi/Adrian on:?03/31/2024 08:31 PM EST History and Physical Notes * HPI (History of Present Illness) Category Sub-Category Detail Notes Category Not es Skin problems Nature: dryness , scaling Location: B/L Treatments: medication ( AM Lact in ) , states adherence to recommended treatment application At Risk footcare Pt States Last PCP Visit: Date: 4 Examination Category Sub-Category Detail Notes Category Not es Dermatologic SKIN FINDINGS: Skin exam reveal s Keratotic lesion(s) located at, SUB MTH (s), 1, B/L , SUB MTH (s), 5, B/L , Heel(s), B/L , Skin shows approximately 80-90% LESS, sign(s) of, dryness, scaling, in a stocking fashion, no fissure(s) present, B/L Vascular DP PULSES(B): 0/4, B/L PT PULSES(B): 0/4, B/L CAPILLARY FILL TIME: delayed, all digits , B/L TEMPERTURE GRADIENT(C): decreased, cool to cool, proximal to distal, B/L TROPHIC CONDITION-TEXTURE/ELASTICITY/TURGOR/HAIR GROWTH(B): decreased, fragile, thin, shiny skin, wi th sparse to absent hair growth, B/L EDEMA(C): 1/4, non-pitting, wi thout aching pain, B/L, Leg(s), Ankle(s) CLAUDICATION(C): denies, B/L REST PAIN: denies, B/L PIGMENTATION: rubrous, B/L Nails NAILS are: Elongated, overg rown, dystrophic, lytic, greater than 3mm thick, discolored and friable with crumbly malodorous subungual debris, with pain on palpation, TA, T5, remaining nails are elongated, overgrown, dystrophic
--- OUTSIDE RECORDS SUMMARY | 2024-03-31 20:31 | XMS_ITS ---
Author Organization [facility] Address [address] [facility] [place] [address] Care Team Providers Care Curing Press Operator Name Role Phone Monica Darby Primary Care Provider Unavailab Fabricio Granados Unavailable [phone] Allergies No Known Allergies REASON FOR VISIT At Risk Footcare, Painful Nail(s) aggrevated by shoes and causing difficulty standing/walking., Skin problem(s) Medications Medication SIG (Take, Route, Frequency, Duration) Notes Start Date End Date Status glipiZIDE 5 MG 1 tablet 30 minutes before breakfast Orally Once a day for 30 day(s) Active Sertraline HCl 25 MG 1 tablet Orally Onc e a day for 30 day(s) Active Mucinex DM 30-600 MG as directed Orally Active Breo Ellipta 100-25 MCG/INH as directed Inhalation Activ e Famotidine 40 MG 1 tablet at bedtime Orally Once a day for 30 day(s) Active metFORMIN HCl 500 MG 1 tablet with a alfonso l Orally Once a day for 30 day(s) Not-Taking Extra Depth Orthopedic Shoes, (1) Pair With (3) Pair Custom Heat Molded Multidensity Innersoles Dx: NIDDM/PVD(E11.51), Hammertoe Foot Deformity(M20.41,M20.42) , Preulcerative Skin Lesion(s)(L85.1) Wear Daily for 365 days 02/04/2023 Active Propranolol HCl 40 MG as directed Orally Active Ammonium Lactate 12 % 1 application Exte rnally Twice a day for 30 days Active immodium Active Clopidogrel Bisulfate 75 MG 1 tablet Orally Once a day for 30 day(s) Active Lisinopril 5 MG 1 tablet Orally Once a day for 30 day(s) Active Simvastatin 40 MG 1 tablet in the even ing Orally Once a day for 30 day(s) Active Social History Tobacco Use: Social History Observation Description Date Details (start date - stop date) Former Smoker NA - NA Tobacco Use/Smoking Question Answer Notes Are you a: former smoker Additional Findings: Tobacco Non-User Current no n-smoker Tobacco use other than smoking: Question Answer Notes Are you an other tobacco user? No Vital Signs Height 5 ft 6 in in 11/21/2023 Weight 170 lbs 11/21/2023 BMI 27.44 kg/m2 11/21/2023 Procedures Procedure Date Ordered Date Performed Result Body Sit e 40396-VJDCIDB NAIL, 1-5 11/21/2023 N/A 38788-WNQY SKIN LESIONS, OVER 4 11/21/2023 N/A D0668-QQEIQVPT DYSTROPHIC NAILS ANY # 11/21/2023 N/A Encounters Encounter Location Date Provider Diagnosis [facility] [address] [address] 11/21/2023 Fabricio Juan Type 2 diabetes mellitus with diabetic peripheral angiopathy without gangrene E11.51 ; Tinea unguium B35.1 ; Pain in right toe(s) M79.674 ; Pain in left toe(s) M79.675 and Xerosis of skin L85.3 Assessments Encounter Date Diagnosis (ICD Code) Assessment Notes Treatment Notes Treatment Clinical Notes Section Notes 11/21/2023 Type 2 diabetes mellitus with diabetic peripheral angiopathy without gangrene (ICD-10 - E11.51) 11/21/2023 Tinea unguium (ICD-10 - B35.1) 11/21/2023 Pain in right toe(s) (ICD-10 - M79.674) 11/21/2023 Pain in left toe(s) (ICD-10 - M79.675) 11/21/2023 Xerosis of skin (ICD-10 - L85.3) 11/21/2023 Other Plan Of Treatment Medication Medication Name Sig Start Date Stop Date Notes Ammonium Lactate 12 % 1 application Exte rnally Twice a day for 30 days Pending Test Test Name Order Date 71453-HCMQSSZ NAIL, 1-5 11/21/2023 00996-GXRO SKIN LESIONS, OVER 4 11/21/19 24 S3159-LUEPFXRA DYSTROPHIC NAILS ANY # Next Appt Details Follow Up: prn, Reason: Provider Name:Fabricio Juan , 05/25/2024 11:30:00 AM, [address] [place], [address], Procedure Notes * Category Sub-Category Detail Notes Keratoma Treatment Parring or Cutting o f Benign Hyperkeratotic Lesion(s) 60597 ( >4 Lesions) - The Benign hyperkeratotic lesions, as described above were pared, and/or cut utilizing a sterile #15 blade, tissue nippers, and/or dremel, Q8 Debride Nails 1-5 Procedure: Nail debrideme nt performed extensively to reduce/remove overall nail length, girth, thickness, subungual debris, and necrotic tissue, by manual and electrical means through the use of a nail nipper and/or dremel, to more viable healthy nail plate or bed tissue 1-5. Silver nitrate used for any petechial bleeding as necessary. Patient chooses, no pharmaceutical tx (73084) Nail Reduction Nail Reduction Trimming of dyst rophic nails performed to reduce/remove overall nail length and girth, by manual and electrical means with use of a nail nipper and/or dremel, to more viable healthy nail plate or bed tissue 6-10 (T5086-N2) Progress Notes * Jesenia CASEYOB:1940 (83 yo M)Acc No.[id number]:11/21/2023 Progress Note Patient:?Jhonny Casey Provider:?Fabricio Juan DPM :1940???Age:83 Y???Sex:Male Romel e:11/21/2023 Address:[address] [place] [address] [id number] Pcp:Monica Darby Subjective: * Chief Complaints: * ???At Risk FootcarePainful N ail(s) aggrevated by shoes and causing difficulty standing/walking.Skin problem(s) * HPI: ???At Risk footcare:?Pt States Last PCP Visit:?Date?09/18/2023 ???Skin problems:?Nature:?dryness , scaling.?Location:?B/L .?Duration:?several days.?Course:?worse.? * ROS:?General/Constitutional:?Nausea?denies.?Vomiting?denies.?Hunger Thirst?denies.?Loss appetite?denies.?Chills?denies.?Fatigue?denies.?Fever?denies.?Night Sweats?denies.?Unexplained weight loss?denies.?Unexplained [...] Foot Deformity(M20.41,M20.42), Preulcerative Skin Lesion(s)(L85.1) Wear DailyTaking Propranolol HCl 40 MG Tablet as directed [...] Hammertoe Foot Deformity(M20.41,M20.42), Preulcerative Skin Lesion(s)(L85.1) Wear DailyNot-Taking/PRNmetFORMIN HCl 500 MG Tablet 1 tablet with a meal Orally Once a dayMedication List reviewed and reconciled with the patientNot-Taking/PRN metFORMIN HCl 500 MG Tablet 1 tablet with a meal Orally Once a dayMedication List reviewed and reconciled with the patient * Allergies:?N.K.D.A.yes[Aller gies Verified] Objective: * Vitals:?Ht: 5 ft 6 in, Wt: 1 70, BMI: 27.44, Shoe size: 9, BS: not taken, Wt-k.11 kg. * ???Past Orders: ???Lab:HEMOGLOBIN A1C (GLYCO HEMOGLOBIN) (Order Date - 08/20/2023) (Collection Date - 08/20/2023) ? Value Reference Range ?HEMOGLOBIN A1C % (HH) 6.6 * Examination: ???Vascular: ?DP PULSES:? 0/4, B/L.?PT PULSES:? 0/4, B/L.?CAPILLARY FILL TIME:? delayed, all digits, B/L.?SKIN TEMPERTURE GRADIENT OF THE LOWER EXTERMITIES:? decreased, cool to cool, proximal to distal, B/L.?HAIR GROWTH/TEXTURE/ELASTICITY/TURGOR:? decreased, B/L.?PIGMENTATION:? rubrous, B/L.?EDEMA:? 1/4, non-pitting, without aching pain, B/L, Leg(s), Ankle(s).?CLAUDICATION:?denies, B/L.?REST PAIN:?denies, B/L.?Nails: ?NAILS are:?Elongated, overgrown, dystrophic, lytic, greater than 3mm thick, discolored and friable with crumbly malodorous subungual debris, with pain on palpation, TA, T5, remaining nails are elongated, overgrown, dystrophic.?Dermatologic: ?SKIN FINDINGS:? Skin exam reveals Keratotic lesion(s) located at, SUB MTH (s), 1, B/L , SUB MTH (s), 5, B/L , Heel(s), B/L , Skin shows sign(s) of, dryness, scaling, in a stocking fashion, no fissure(s) present, B/L.? Assessment: * Assessment: 1.?Tinea unguium - B35.1?2.? Type 2 diabetes mellitus with diabetic peripheral angiopathy without gangrene - E11.51?3.?Pain in right toe(s) - M79.674?4.?Pain in left toe(s) - M79.675?5.?Xerosis of skin - L85.3, Acute problem, Uncomplicated (3),Rx Management (4)? Plan: * Treatment: 2.?Type 2 diabetes mellitus with diabetic peripheral angiopathy without gangrene?Procedure: 82109-AOXY SKIN LESIONS, OVER 4 ?Procedure: W8819-WLLMBITD DYSTROPHIC NAILS ANY # 3.?Xerosis of skin? Start Ammonium Lactate Cream, 12 %, 1 application, Externally, Twice a day, 30 days, 60, Refills 2.?? * Procedures:?Debride Nails 1-5:?Procedure:?Nail debridement performed extensively to reduce/remove overall nail length, girth, thickness, subungual debris, and necrotic tissue, by manual and electrical means through the use of a nail nipper and/or dremel, to more viable healthy nail plate or bed tissue 1-5. Silver nitrate used for any petechial bleeding as necessary. Patient chooses, no pharmaceutical tx (00529).?Keratoma Treatment:?Parring or Cutting of Benign Hyperkeratotic Lesion(s)?80121 ( >4 Lesions) - The Benign hyperkeratotic lesions, as described above were pared, and/or cut utilizing a sterile #15 blade, tissue nippers, and/or dremel, Q8.?Nail Reduction:?Nail Reduction?Trimming of dystrophic nails performed to reduce/remove overall nail length and girth, by manual and electrical means with use of a nail nipper and/or dremel, to more viable healthy nail plate or bed tissue 6-10 (G0127- Q8).? * Procedure Codes:?G0127 TIFFANIE ING DYSTROPHIC NAILS ANY #, Modifiers: XS , [id number] DEBRIDE NAIL, 1-5, Modifiers: XS 78194 TRIM SKIN LESIONS, OVER 4, Modifiers: XS , Q8 * Preventive Medicine:? ??Counseling:?Discussion:?-13: Office or other outpatient visit for the evaluation and management of an established patient, which required a medically appropriate history and/or examination and LOW level of DECISION MAKING for: 1 STABLE ACUTE UNCOMPLICATED PROBLEM, 2 OR MORE MINOR PROBLEMS, OR 1 STABLE CHRONIC PROBLEM, THAT POSE(S) A LOW RISK FOR MORBIDITY/MORTALITY. The visit on the day of the [...] have encouraged the patient to call the office.?Xerosis:?The patient was counseled on the diagnosis, potential etiologies, and treatment options for their skin condition. We discussed the risks and benefits of each option from performing no treatment, to utilizing OTC topical skin creams/ointments, to utilizing prescription topical creams/ointments, to utilizing customized compounded topical medications and use of nocturnal occlusion with any/all previously detailed therapies. We discussed the advantages and disadvantages of each possible treatment and importance for adherence to all the recommended therapies for optimum success and avoid potential complications such as open sore/infection/possible hospitalization. We discussed the potential effectiveness of each topical preparation as well as each ones possible side effects and/or patient medication interactions. Patient questions re: use, dosage, successful outcomes, and application consistency were reviewed and the patient verbalized that all answers were clearly understood. The patient has decided to apply Rx skin creams to their feet save the interspaces while paying special attention to the heels. Such was sent to their pharmacy at the time of visit.? * Follow Up:?prn * Images: * Sign off status: Completed true * Provider:?Fabricio Juan DPM Date:?2023 Generated for Danilo moreno/Kofi/Adrian on:?03/31/2024 08:31 PM EST History and Physical Notes * HPI (History of Present Illness) Category Sub-Category Detail Notes Category Not es Skin problems Nature: dryness , scaling Location: B/L Duration: several days Course: worse At Risk footcare Pt States Last PCP Visit: Date: 4 Examination Category Sub-Category Detail Notes Category Not es Dermatologic SKIN FINDINGS: Skin exam reveal s Keratotic lesion(s) located at, SUB MTH (s), 1, B/L , SUB MTH (s), 5, B/L , Heel(s), B/L , Skin shows sign(s) of, dryness, scaling, in a stocking fashion, no fissure(s) present, B/L Vascular DP PULSES(B): 0/4, B/L PT PULSES(B): 0/4, B/L CAPILLARY FILL TIME: delayed, all digits , B/L TEMPERTURE GRADIENT(C): decreased, cool to cool, proximal to distal, B/L TROPHIC CONDITION-TEXTURE/ELASTICITY/TURGOR/HAIR GROWTH(B): decreased, B/L EDEMA(C): 1/4, non-pitting, wi thout aching pain, B/L, Leg(s), Ankle(s) CLAUDICATION(C): denies, B/L REST PAIN: denies, B/L PIGMENTATION: rubrous, B/L Nails NAILS are: Elongated, overg rown, dystrophic, lytic, greater than 3mm thick, discolored and friable with crumbly malodorous subungual debris, with pain on palpation, TA, T5, remaining nails are elongated, overgrown, dystrophic
--- OUTSIDE RECORDS SUMMARY | 2024-03-31 20:31 | XMS_ITS ---
Author Organization [facility] Address [address] [place] [address] Care Team Providers Care Airport Duty Manager Name Role Phone Monica Darby Primary Care Provider Unavailab Fabricio Granados Unavailable [phone] trotter Encounters Encounter Location Date Provider Diagnosis [address] [address] 09/12/2023 Fabricio Juan Plan Of Treatment Next Appt Details Provider Name:Fabricio Juan , 05/25/2024 11:30:00 AM, [address] [place], [address], Progress Notes * Jesenia CASEYOB:1940 (83 yo M)Acc No.[id number]:09/12/2023 Progress Note Patient:?Jhonny CASEY Provider:?Fabricio Juan DPM :1940???Age:82 Y???Sex:Male Romel e:09/12/2023 Address:[address] [id number] Pcp:Monica Darby Subjective: * Chief Complaints: * ???1. Dr trotter. * Medical History:? Objective: * Vitals:? Assessment: Plan: * Treatment: * Images: * The named appointment provid er may or may not be the originator of this progress note, and it is not deemed complete until electronically signed by the appointment provider. Sign off status: Pending * Provider:Maryanne Juan DPM Date:?2023 Generated for Danilo moreno/Kofi/Adrian on:?03/31/2024 08:31 PM EST
--- OUTSIDE RECORDS SUMMARY | 2024-03-31 20:31 | XMS_ITS | Patient Health Record ---
[facility] Organization [facility] Address [address] [facility] [place] [address] Care Team Providers Care Linux Systems Engineer Name Role Phone Monica Darby Primary Care Provider Unavailab Fabricio Granados Unavailable [phone] Allergies No Known Allergies Results Component Value Reference Range Notes HEMOGLOBIN A1C (GLYCOHEMOGLO BIN) Reviewed date:11/21/2023 12:14:59 PM Interpretation: Performing Lab: Notes/Report: HEMOGLOBIN A1C % (HH) 6.6 Reason For Referral Diagnosis 1 Type 2 diabetes gerardo itus with diabetic peripheral angiopathy without gangrene (E11.51) Diagnosis 2 Pain in left toe(s) (M79.675) Diagnosis 3 Pain in left foot (M 79.672) Diagnosis 4 Plantar wart (B07.0) Diagnosis 5 Tinea unguium (B35.1 ) Diagnosis 6 Other hammer toe(s) (acquired), right foot (M20.41) Diagnosis 7 Xerosis cutis (L85.3 ) Diagnosis 8 Other hammer toe(s) (acquired), left foot (M20.42) Referring Provider First Name Monica Referring Provider Last Name Wilner [facility] Referred Provider Fabricio Juan Referred Address [address] ,[facility] [place],[place],[address], Referred Provider Specialty Podiatry Referral Priority Routine Medications Medication SIG (Take, Route, Frequency, Duration) Notes Start Date End Date Status Famotidine 40 MG 1 tablet at bedtime Orally Once a day for 30 day(s) Active metFORMIN HCl 500 MG 1 tablet with a alfonso l Orally Once a day for 30 day(s) Not-Taking Breo Ellipta 100-25 MCG/INH as directed Inhalation Activ e Mucinex DM 30-600 MG as directed Orally Active Sertraline HCl 25 MG 1 tablet [...] Once a day for 30 day(s) Active immodium Active Propranolol HCl 40 MG as directed Orally Active Ammonium Lactate 12 % 1 application Exte rnally Twice a day for 30 days Active Immunizations Vaccine Route Administration Date Status Comme nts Influenza Unknown 12/20/2022 Administered Social History Tobacco Use: Social History Observation [...] Are you an other tobacco user? No Problems Problem Type SNOMED Code ICD Code Onset Dates Problem Status W/U Status Risk Notes Problem Acquired hammer toe of right foot (39939182743119 05) Other hammer toe(s) (acquired), right foot (M20.41) Active confirmed Problem Acquired hammer toe of left foot (13158426354214 03) Other hammer toe(s) (acquired), left foot (M20.42) Active confirmed Problem Type 2 diabetes mellitus with peripheral angiopathy (912383951) 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.51) Active confirmed Vital Signs Height 5 ft 6 in in 02/24/2024 Weight 160 lbs 02/24/2024 BMI 25.82 kg/m2 02/24/2024 Procedures Procedure Date Ordered Date Performed Result Body Sit e 66212-TZSNNBQ NAIL, 1-5 06/13/2023 N/A 73774-GHTB SKIN LESIONS, OVER 4 06/13/2023 N/A Y5344-ZBOBLJOO DYSTROPHIC NAILS ANY # 06/13/2023 N/A 11406-VMKLMFY NAIL, 1-5 11/21/2023 N/A 10640-ASBH SKIN LESIONS, OVER 4 11/21/2023 N/A D9453-RMUFCDEZ DYSTROPHIC NAILS ANY # 11/21/2023 N/A 65816-PUIGDWP NAIL, 1-5 02/24/2024 N/A 48446-OHRQ SKIN LESIONS, OVER 4 02/24/2024 N/A K0849-XCCKZXBT DYSTROPHIC NAILS ANY # 02/24/2024 N/A Encounters Encounter Location Date Provider Diagnosis [address] [address] 06/13/2023 Fabricio Juan Type 2 diabetes mellitus with diabetic peripheral angiopathy without gangrene E11.51 ; Tinea unguium B35.1 ; Pain in right toe(s) M79.674 and Pain in left toe(s) M79.[address] [address] 11/21/2023 Fabricio Yessica Type 2 diabetes mellitus with diabetic peripheral angiopathy without gangrene E11.51 ; Tinea unguium B35.1 ; Pain in right toe(s) M79.674 ; Pain in left toe(s) M79.675 and Xerosis of skin L85.[address] [address] 02/24/2024 Fabricio Yessica Type 2 diabetes mellitus with diabetic peripheral angiopathy without gangrene E11.51 ; Tinea unguium B35.1 ; Pain in right toe(s) M79.674 ; Pain in left toe(s) M79.675 and Xerosis of skin L85.[address] [address] 05/06/2023 Fabricio Juan Assessments Encounter Date Diagnosis (ICD Code) Assessment Notes Treatment Notes Treatment Clinical Notes Section Notes 06/13/2023 Tinea unguium (ICD-10 - B35.1) 06/13/2023 Type 2 diabetes mellitus with diabetic peripheral angiopathy without gangrene (ICD-10 - E11.51) 11/21/2023 Tinea unguium (ICD-10 - B35.1) 11/21/2023 Type 2 diabetes mellitus with diabetic peripheral angiopathy without gangrene (ICD-10 - E11.51) 02/24/2024 Tinea unguium (ICD-10 - B35.1) 02/24/2024 Type 2 diabetes mellitus with diabetic peripheral angiopathy without gangrene (ICD-10 - E11.51) 06/13/2023 Pain in right toe(s) (ICD-10 - M79.674) 11/21/2023 Pain in right toe(s) (ICD-10 - M79.674) 02/24/2024 Pain in right toe(s) (ICD-10 - M79.674) 11/21/2023 Pain in left toe(s) (ICD-10 - M79.675) 06/13/2023 Pain in left toe(s) (ICD-10 - M79.675) 02/24/2024 Pain in left toe(s) (ICD-10 - M79.675) 02/24/2024 Xerosis of skin (ICD-10 - L85.3) 11/21/2023 Xerosis of skin (ICD-10 - L85.3) 06/13/2023 Other 11/21/2023 Other 02/24/2024 Other Plan Of Treatment Pending Test Test Name Order Date X ray : Foot, left 3V 02/06/2022 39866-JNJVHGG NAIL, 1-5 05/07/2022 76309-CUAGUSZ NAIL, 1-5 01/21/2022 49873-QCPTMLK NAIL, 1-5 08/13/2022 20732-PLVPLLP NAIL, 1-5 11/12/2022 91084-MSPBDPY NAIL, 1-5 02/04/2023 48631-ZZGLJNV NAIL, 1-5 06/13/2023 00266-YMKATSE NAIL, 1-5 11/21/2023 82405-KEJVIFZ NAIL, 1-5 02/24/2024 11286-Bscl Destruction, 1-14 02/04/2023 42576-Dudb Destruction, -14 11/12/2022 29198-Enjp Destruction, -14 08/13/2022 79168-Xdnv Destruction, -14 01/21/2022 53457-Mtmj Destruction, 1-14 05/07/2022 28803-POTZ SKIN LESIONS, OVER 4 05/07/19 23 54135-XOIH SKIN LESIONS, OVER 4 01/22/20 22 23030-EBZR SKIN LESIONS, OVER 4 08/14/19 73493-PXPQ SKIN LESIONS, OVER 4 11/13/19 23 41255-KPJF SKIN LESIONS, OVER 4 02/05/20 23 34037-CNTO SKIN LESIONS, OVER 4 11/21/19 24 16710-ZWUA SKIN LESIONS, OVER 4 06/13/19 24 81868-LHZX SKIN LESIONS, OVER 4 02/24/20 24 F7795-WAGXZISE DYSTROPHIC NAILS ANY # D7499-XWISWXMO DYSTROPHIC NAILS ANY # N4687-VUYEQCCK DYSTROPHIC NAILS ANY # Z6726-VWYBYJDD DYSTROPHIC NAILS ANY # M8004-DGLRGPYG DYSTROPHIC NAILS ANY # N8957-WLABYUDP DYSTROPHIC NAILS ANY # V5219-FSYSFXTB DYSTROPHIC NAILS ANY # H6189-YUQELREK DYSTROPHIC NAILS ANY # Next Appt Details Provider Name:Fabricio Juan , 05/25/2024 11:30:00 AM, [address] [place], [address], Insurance Providers Payer Name Payer Address Payer Phone Subscriber Number Group Number Insured Name Patient Relationship to Insured Coverage Start Date Coverage End Date [employer] Preferred [address] [place] [address] [phone] [id number] Jhonny Shrestha Self - patient is the insured Medical (General) History Medical History History ICD Code asthma Diabetic type ll Lung disease Parkinsons disease Stroke Chicken pox COPD Colon CA Surgical History Surgery Date(Month/Year) appendectomy gall bladder cataract surgery Hospitalization History Reason Date(Month/Year) Ultrasound both legs for veins 2021
== END 2024-03-30 11:46 | disposition home or self-care (01) ==
PROVIDERS: PCP Internal Medicine; Visit Provider Internal Medicine
DX: J44.9 Chronic obstructive pulmonary disease, unspecified (principal); J30.9 Allergic rhinitis, unspecified; R05.9 Cough, unspecified
CPT/HCPCS: 99213

== ENCOUNTER → 2024-03-30 10:57 | Outpatient (BNVA) | payer MEDICARE, SELFPAY | PROVIDERS: PCP Internal Medicine; Visit Provider Internal Medicine | DX: J44.9 Chronic obstructive pulmonary disease, unspecified (principal); J30.9 Allergic rhinitis, unspecified; R05.9 Cough, unspecified | CPT/HCPCS: 99212 ==

== ENCOUNTER → 2024-04-05 12:57 | Outpatient (REF) | payer MEDICARE, SELFPAY ==
--- OUTSIDE RECORDS SUMMARY | 2024-04-05 13:00 | XMS_ITS | Patient Health Record ---
Author Organization [facility] Jasbir Bestley Address [address] [facility] [place] [address] Care Team Providers Care Research Intern Name Role Phone Monica Darby Primary Care Provider Unavailab Fabricio Granados Unavailable [phone] Allergies No Known Allergies Results Component Value [...] Referring Provider Last Name Wilner [facility] [place] Referred Provider Fabricio Juan Referred Address [address] [facility] [address] ,[facility] [place],[address], Referred Provider Specialty Podiatry Referral Priority Routine [...] Problem Acquired hammer toe of right foot (39936325131074 05) Other hammer toe(s) (acquired), right foot (M20.41) Active confirmed Problem Acquired hammer toe of left foot (44141420408036 03) Other hammer toe(s) (acquired), left foot (M20.42) Active confirmed Problem Type 2 diabetes mellitus with peripheral angiopathy (770374996) 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.51) Active confirmed Vital Signs Height 5 ft 6 in in 02/24/2024 Weight 160 lbs 02/24/2024 BMI 25.82 kg/m2 02/24/2024 Procedures Procedure Date Ordered Date Performed Result Body Sit e 05194-DVYALCF NAIL, 1-5 06/13/2023 N/A 33118-QRJR SKIN LESIONS, OVER 4 06/13/2023 N/A J9688-BXKXBZAV DYSTROPHIC NAILS ANY # 06/13/2023 N/A 32710-IMREAEZ NAIL, 1-5 11/21/2023 N/A 88085-VMLN SKIN LESIONS, OVER 4 11/21/2023 N/A L3600-MQBOZOEL DYSTROPHIC NAILS ANY # 11/21/2023 N/A 15399-HKYXHBY NAIL, 1-5 02/24/2024 N/A 66206-ARXP SKIN LESIONS, OVER 4 02/24/2024 N/A A9289-YCQQEXAB DYSTROPHIC NAILS ANY # 02/24/2024 N/A Encounters Encounter Location Date Provider Diagnosis [address] [address] 06/13/2023 Farbicio Juan Type 2 diabetes mellitus with diabetic peripheral angiopathy without gangrene E11.51 ; Tinea unguium B35.1 ; Pain in right toe(s) M79.674 and Pain in left toe(s) M79.[address] [address] 11/21/2023 Fabricio Yessica Type 2 diabetes mellitus with diabetic peripheral angiopathy without gangrene E11.51 ; Tinea unguium B35.1 ; Pain in right toe(s) M79.674 ; Pain in left toe(s) M79.675 and Xerosis of skin L85.[address] [address] 02/24/2024 Fabricio Yessica Type 2 diabetes mellitus with diabetic peripheral angiopathy without gangrene E11.51 ; Tinea unguium B35.1 ; Pain in right toe(s) M79.674 ; Pain in left toe(s) M79.675 and Xerosis of skin L85.[address] [address] 05/06/2023 Fabricio Juan Assessments Encounter Date Diagnosis [...] X ray : Foot, left 3V 02/06/2022 07699-ZYDBETM NAIL, 1-5 05/07/2022 93011-KQUTTCN NAIL, 1-5 01/21/2022 58764-PGLFPLJ NAIL, 1-5 08/13/2022 32724-LMGQRTK NAIL, 1-5 11/12/2022 47056-XMYEXFI NAIL, 1-5 02/04/2023 96145-CEBXTYK NAIL, 1-5 06/13/2023 81934-ERRPNOF NAIL, 1-5 11/21/2023 61336-IHUUTDW NAIL, 1-5 02/24/2024 40558-Flmp Destruction, 1-14 02/04/2023 06687-Qlmz Destruction, -14 11/12/2022 76290-Jico Destruction, -14 08/13/2022 24052-Qdav Destruction, -14 01/21/2022 08835-Fimg Destruction, 1-14 05/07/2022 18429-VKSJ SKIN LESIONS, OVER 4 05/07/19 23 75970-KJEV SKIN LESIONS, OVER 4 01/22/20 22 59807-UWQZ SKIN LESIONS, OVER 4 08/14/19 02043-XUBF SKIN LESIONS, OVER 4 11/13/19 23 93443-ZQSZ SKIN LESIONS, OVER 4 02/05/20 23 58985-KQRQ SKIN LESIONS, OVER 4 11/21/19 24 87545-PCND SKIN LESIONS, OVER 4 06/13/19 24 31816-GZSQ SKIN LESIONS, OVER 4 02/24/20 24 B7834-EKVGMNJO DYSTROPHIC NAILS ANY # E1653-AFLPOLSZ DYSTROPHIC NAILS ANY # V0651-XKTFTHKD DYSTROPHIC NAILS ANY # J0176-WLPHOVXR DYSTROPHIC NAILS ANY # T4011-KIPICMIL DYSTROPHIC NAILS ANY # U2995-GTTQWART DYSTROPHIC NAILS ANY # N8732-SYZDAQTC DYSTROPHIC NAILS ANY # O0151-XCUFWAHF DYSTROPHIC NAILS ANY # Next Appt Details Provider Name:Fabricio Juan , 05/25/2024 11:30:00 AM, [address] [place], [address], Insurance Providers Payer Name Payer Address Payer Phone Subscriber Number Group Number Insured Name Patient Relationship to Insured Coverage Start Date Coverage End Date [employer] Medicare Preferred [address] [place] [address] [id number] Jhonny hSrestha Self - patient is the insured Medical (General) History Medical History History ICD Code asthma Diabetic type ll Lung disease Parkinsons disease Stroke Chicken pox COPD Colon CA Surgical History Surgery Date(Month/Year) appendectomy gall bladder cataract surgery Hospitalization History Reason Date(Month/Year) Ultrasound both legs for veins 2021
--- OUTSIDE RECORDS SUMMARY | 2024-04-05 13:00 | XMS_ITS ---
Author Organization [facility] Address [address] [facility] [place] [address] Care Team Providers Care Well Head Pumper Name Role Phone Monica Darby Primary Care Provider Unavailab Fabricio Granados Unavailable [phone] Allergies No Known Allergies REASON FOR VISIT [...] Ordered Date Performed Result Body Sit e 59644-WHUAGPX NAIL, 1-02/24/2024 N/A 37272-ZHQX SKIN LESIONS, OVER 4 02/24/2024 N/A N1970-FHKICNTF DYSTROPHIC NAILS ANY # 02/24/2024 N/A Encounters Encounter Location Date Provider Diagnosis [facility] [address] [address] 02/24/2024 Fabricio Juan Type 2 diabetes mellitus [...] Treatment Pending Test Test Name Order Date 78035-JFNYEWV NAIL, 1-5 02/24/2024 40456-RKZR SKIN LESIONS, OVER 4 02/24/20 24 N1939-TMFYAKUG DYSTROPHIC NAILS ANY # Next Appt Details Follow Up: prn, Reason: Provider Name:Fabricio Juan , 05/25/2024 11:30:00 AM, [address] [place], [address], Procedure Notes * Category Sub-Category Detail Notes Keratoma Treatment Parring or Cutting o f Benign Hyperkeratotic Lesion(s) (-57) More than 4 Lesions - The Benign hyperkeratotic lesions, as described above were pared, and/or cut utilizing a sterile 15 blade, tissue nippers, and/or dremel - 62838 , Q8 Debride Nails 1-5 Procedure: Performance of this nail treatment by a nonprofessional would put this patients foot and overall health at risk. Therefore, nail debridement was performed extensively to reduce/remove overall nail length, girth, thickness, subungual debris, and necrotic tissue, by manual and/or electrical means through the use of a nail nipper and/or dremel-type rubber roller grinder operator, to a more viable healthy nail plate or bed tissue 1-5. Silver nitrate used for any petechial bleeding as necessary. Definitive antifungal treatment options have been reviewed and discussed with the patient. The patient chooses, no pharmaceutical tx - 5[address]10 Nail Reduction Nail Reduction (-27) Trimming o f dystrophic nails performed to reduce/remove overall nail length and girth, by manual and electrical means with use of a nail nipper and/or dremel, to more viable healthy nail plate or bed tissue, any number - G0127 , Q8 Progress Notes * Jesenia CASEYOB:1940 (83 yo M)Acc No.[id number]:02/24/2024 Progress Note Patient:?Fady Jhonny Provider:?Fabricio Juan DPM :1940???Age:83 Y???Sex:Male Romel e:02/24/2024 Address:[address] [place] [address] [facility] Pcp:Monica Darby Subjective: * Chief Complaints: * [...] mellitus with diabetic peripheral angiopathy without gangrene?Procedure: 14128-NMKQ SKIN LESIONS, OVER 4 ?Procedure: A4181-TWAZKUMR DYSTROPHIC NAILS ANY # * Procedures:?Debride Nails 1-5:?Procedure:?Performance of this nail treatment by a nonprofessional would put this patients foot and overall health at risk. Therefore, nail debridement was performed extensively to reduce/remove overall nail length, girth, thickness, subungual debris, and necrotic tissue, by manual and/or electrical means through the use of a nail nipper and/or dremel-type rubber roller grinder operator, to a more viable healthy nail plate or bed tissue 1-5. Silver nitrate used for any petechial bleeding as necessary. Definitive antifungal treatment options have been reviewed and discussed with the patient. The patient chooses, no pharmaceutical tx - 29557.?Keratoma Treatment:?Parring or Cutting of Benign Hyperkeratotic Lesion(s)?(-57) More than 4 Lesions - The Benign hyperkeratotic lesions, as described above were pared, and/or cut utilizing a sterile 15 blade, tissue nippers, and/or dremel - 33020 , Q8.?Nail Reduction:?Nail Reduction?(-27) Trimming of dystrophic nails performed to reduce/remove overall nail length and girth, by manual and electrical means with use of a nail nipper and/or dremel, to more viable healthy nail plate or bed tissue, any number - G0127 , Q8.? * Procedure Codes:?G0127 TIFFANIE ING DYSTROPHIC NAILS ANY #, Modifiers: XS , [id number] DEBRIDE NAIL, 1-5, Modifiers: XS 60565 TRIM SKIN LESIONS, OVER 4, Modifiers: XS [...] Juan DPM Date:?2023 Generated for Danilo moreno/Kofi/Adrian on:?04/05/2024 01:00 PM EST History and Physical Notes * [...]
--- OUTSIDE RECORDS SUMMARY | 2024-04-05 13:00 | XMS_ITS ---
Author Organization [facility] Address [address] [place] [address] Care Team Providers Care Furnace Clerk Name Role Phone Monica Darby Primary Care Provider Unavailab Fabricio Granados Unavailable [phone] trotter Encounters Encounter Location Date Provider Diagnosis [address] [address] 09/12/2023 Fabricio Juan Plan Of Treatment Next Appt Details Provider Name:Fabricio Juan , 05/25/2024 11:30:00 AM, [address] [place], [address], Progress Notes * Jesenia CASEYOB:1940 (83 yo M)Acc No.[id number]:09/12/2023 Progress Note Patient:?Jhonny CASEY Provider:?Fabricio Juan DPM :1940???Age:82 Y???Sex:Male Romel e:09/12/2023 Address:[address] [id number] Pcp:Monica Darby Subjective: * Chief Complaints: * [...]
--- OUTSIDE RECORDS SUMMARY | 2024-04-05 13:00 | XMS_ITS ---
Author Organization [facility] Address [address] [facility] [place] [address] Care Team Providers Care Stamp Machine Servicer Name Role Phone Monica Darby Primary Care Provider Unavailab Fabricio Granados Unavailable [phone] Allergies No Known Allergies REASON FOR VISIT [...] Ordered Date Performed Result Body Sit e 32100-CTBLDNT NAIL, 1-5 11/21/2023 N/A 46643-VNRS SKIN LESIONS, OVER 4 11/21/2023 N/A J1407-SHWKYNMK DYSTROPHIC NAILS ANY # 11/21/2023 N/A Encounters Encounter Location Date Provider Diagnosis [facility] [address] [address] 11/21/2023 Fabricio Juan Type 2 diabetes mellitus [...] days Pending Test Test Name Order Date 13985-DKVJGMQ NAIL, 1-5 11/21/2023 39373-LOXJ SKIN LESIONS, OVER 4 11/21/19 24 K1833-CMGYBZMJ DYSTROPHIC NAILS ANY # Next Appt Details Follow Up: prn, Reason: Provider Name:Fabricio Juan , 05/25/2024 11:30:00 AM, [address] [place], [address], Procedure Notes * Category Sub-Category Detail Notes Keratoma Treatment Parring or Cutting o f Benign Hyperkeratotic Lesion(s) 56528 ( >4 Lesions) - The Benign hyperkeratotic [...] as necessary. Patient chooses, no pharmaceutical tx (26032) Nail Reduction Nail Reduction Trimming of dyst rophic nails performed to reduce/remove overall nail length and girth, by manual and electrical means with use of a nail nipper and/or dremel, to more viable healthy nail plate or bed tissue 6-10 (W9919-R8) Progress Notes * Jesenia CASEYOB:1940 (83 yo M)Acc No.[id number]:11/21/2023 Progress Note Patient:?Jhonny Casey Provider:?Fabricio Juan DPM :1940???Age:83 Y???Sex:Male Romel e:11/21/2023 Address:[address] [place] [address] [id number] Pcp:Monica Darby Subjective: * Chief Complaints: * [...] mellitus with diabetic peripheral angiopathy without gangrene?Procedure: 56590-VMYS SKIN LESIONS, OVER 4 ?Procedure: I3752-WWAOGSHP DYSTROPHIC NAILS ANY # 3.?Xerosis of skin? [...] as necessary. Patient chooses, no pharmaceutical tx (82111).?Keratoma Treatment:?Parring or Cutting of Benign Hyperkeratotic Lesion(s)?54507 ( >4 Lesions) - The Benign hyperkeratotic [...] DYSTROPHIC NAILS ANY #, Modifiers: XS , R705386 DEBRIDE NAIL, 1-5, Modifiers: XS 99998 TRIM SKIN LESIONS, OVER 4, Modifiers: XS [...]
--- OUTSIDE RECORDS SUMMARY | 2024-04-05 13:00 | XMS_ITS | Patient Health Record ---
Author Organization [facility] Address [address] [place] [address] Care Team Providers Care Pipe Processor Name Role Phone Monica Darby Primary Care Provider Unavailab Julio Cesar Vides Unavailable [phone] REASON FOR REFERRAL Referring Provider First Name Monica Referring Provider Last Name Wilner Referring Provider Speciality Internal M edicine Referred Organization [facility] Referred Provider Julio Cesar Chaparro Referred Address [address] [facility],[address],[place], [place],[address],[place] Referred Provider Specialty Gastroentero logy Referral Priority [...] 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) Active confirmed 478983064 Problem Diarrhea, unspecified type (R19.7) Active confirmed 14645280 Problem 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) Active confirmed 275432694 PLAN OF TREATMENT Pending Test Test Name Order Date IRON + IBC (FE) 08/25/2018 IRON + IBC (FE) 05/20/2019 IRON + IBC (FE) 09/28/2018 FERRITIN 08/25/2018 FERRITIN 05/20/2019 FERRITIN 09/28/2018 CBC w DIFF 09/28/2018 CBC w DIFF 08/25/2018 CBC w DIFF 05/20/2019 Next Appt Details Provider Name:Julio Cesar Chaparro , 04/27/2024 11:10:00 AM, [address] [place] [address], [address], [place], [address], Insurance Providers Payer Name Payer Address Payer Phone Subscriber Number Group Number Insured Name Patient Relationship to Insured Coverage Start Date Coverage End Date [employer] PREF[employer]ED [address] [place] [phone] [id number] LOPEZ CASEY Self - patient is the insured MEDICAL (GENERAL) HISTORY Medical History History ICD Code Stroke 01/2018 and another 2004 NIDDM Hypertension Asthma COPD Denies LA,renal disease Iron deficiency anemia-he wa s hospitalized [...]
== END ==
LOC: HO.CARD 12:57
PROVIDERS: PCP Internal Medicine; Visit Provider Internal Medicine Cardiovascular Disease
DX: I49.5 Sick sinus syndrome (principal)
CPT/HCPCS: 93242

== ENCOUNTER → 2024-04-05 13:02 | Outpatient (BNV) | payer MEDICARE, SELFPAY | PROVIDERS: PCP Internal Medicine; Visit Provider Internal Medicine Cardiovascular Disease | DX: I49.5 Sick sinus syndrome (principal) | CPT/HCPCS: 93244 ==

== ENCOUNTER 2024-04-22 07:39 | Outpatient (REF) | payer MEDICARE, SELFPAY ==
--- OUTSIDE RECORDS SUMMARY | 2024-04-22 07:41 | XMS_ITS | Patient Health Record ---
Author Organization [facility] J[facility]ir Best[facility] Address [address] [facility] [place] [address] Care Team Providers Care Manager Statistical Programming Name Role Phone Monica Darby Primary Care Provider Unavailab Fabricio Granadso Unavailable [phone] Allergies No Known Allergies Results Component Value [...] Referring Provider Last Name Wilner [facility] [place] Referred Provider Fabricio Juan Referred Address [address] [facility] ,[facility] [place],[address], Referred Provider Specialty Podiatry Referral Priority Routine [...] Problem Acquired hammer toe of right foot (87580145412505 05) Other hammer toe(s) (acquired), right foot (M20.41) Active confirmed Problem Acquired hammer toe of left foot (65629907875571 03) Other hammer toe(s) (acquired), left foot (M20.42) Active confirmed Problem Type 2 diabetes mellitus with peripheral angiopathy (393236446) 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.51) Active confirmed Vital Signs Height 5 ft 6 in in 02/24/2024 Weight 160 lbs 02/24/2024 BMI 25.82 kg/m2 02/24/2024 Procedures Procedure Date Ordered Date Performed Result Body Sit e 87921-IURVFYD NAIL, 1-5 06/13/2023 N/A 13145-EPXY SKIN LESIONS, OVER 4 06/13/2023 N/A U9079-SLUETZHE DYSTROPHIC NAILS ANY # 06/13/2023 N/A 18158-DODGVWW NAIL, 1-5 11/21/2023 N/A 34799-JKNE SKIN LESIONS, OVER 4 11/21/2023 N/A Q2187-NSKQIAMR DYSTROPHIC NAILS ANY # 11/21/2023 N/A 20323-FVEKWUC NAIL, 1-5 02/24/2024 N/A 15342-VUZE SKIN LESIONS, OVER 4 02/24/2024 N/A K4451-KLHJWAGS DYSTROPHIC NAILS ANY # 02/24/2024 N/A Encounters Encounter Location Date Provider Diagnosis [address] [address] 06/13/2023 Fabricio Juan Type 2 diabetes mellitus with diabetic peripheral angiopathy without gangrene E11.51 ; Tinea unguium B35.1 ; Pain in right toe(s) M79.674 and Pain in left toe(s) M79.[address] [address] 11/21/2023 Fabricio Yessica Type 2 diabetes mellitus with diabetic peripheral angiopathy without gangrene E11.51 ; Tinea unguium B35.1 ; Pain in right toe(s) M79.674 ; Pain in left toe(s) M79.675 and Xerosis of skin L85.[address] [address] 02/24/2024 Fabricio Yessica Type 2 diabetes mellitus with diabetic peripheral angiopathy without gangrene E11.51 ; Tinea unguium B35.1 ; Pain in right toe(s) M79.674 ; Pain in left toe(s) M79.675 and Xerosis of skin L85.[address] [address] 05/06/2023 Fabricio Juan Assessments Encounter Date Diagnosis [...] X ray : Foot, left 3V 02/06/2022 30992-BOHBKBX NAIL, 1-5 05/07/2022 35798-RDZUMQP NAIL, 1-5 01/21/2022 76576-ONFQXPV NAIL, 1-5 08/13/2022 70189-CBYYKJX NAIL, 1-5 11/12/2022 01252-REFSCEM NAIL, 1-5 02/04/2023 75240-QFCJDBG NAIL, 1-5 06/13/2023 70868-PBAPDGL NAIL, 1-5 11/21/2023 02701-NAFBQRC NAIL, 1-5 02/24/2024 31387-Goes Destruction, 1-14 02/04/2023 05479-Hwvk Destruction, -14 11/12/2022 88105-Ztqy Destruction, -14 08/13/2022 67916-Bhgy Destruction, -14 01/21/2022 65342-Xhdm Destruction, 1-14 05/07/2022 43146-JFJJ SKIN LESIONS, OVER 4 05/07/19 23 98182-QICM SKIN LESIONS, OVER 4 01/22/20 22 28439-OAOY SKIN LESIONS, OVER 4 08/14/19 92097-WQEE SKIN LESIONS, OVER 4 11/13/19 23 17485-SQXQ SKIN LESIONS, OVER 4 02/05/20 23 44619-GPZA SKIN LESIONS, OVER 4 11/21/19 24 62356-MUWB SKIN LESIONS, OVER 4 06/13/19 24 75576-ZFYV SKIN LESIONS, OVER 4 02/24/20 24 Y4825-JYDFSDYT DYSTROPHIC NAILS ANY # Q3329-CHSONAAP DYSTROPHIC NAILS ANY # A9016-QNDPWXOU DYSTROPHIC NAILS ANY # F8867-LUHYFBZL DYSTROPHIC NAILS ANY # I9304-FHUPPKLF DYSTROPHIC NAILS ANY # L2939-AEPGRGZO DYSTROPHIC NAILS ANY # H3200-JDAJKCPY DYSTROPHIC NAILS ANY # Z9288-LFHVEFLL DYSTROPHIC NAILS ANY # Next Appt Details Provider Name:Fabricio Juan , 05/25/2024 11:30:00 AM, [address] [place], [address], Insurance Providers Payer Name Payer Address Payer Phone Subscriber Number Group Number Insured Name Patient Relationship to Insured Coverage Start Date Coverage End Date [employer] Medicare Preferred [address] [place] [address] [phone] [id number] Jhonny Shrestha Self - patient is the insured Medical (General) History Medical History History ICD Code asthma Diabetic type ll Lung disease Parkinsons disease Stroke Chicken pox COPD Colon [place] Surgical History Surgery Date(Month/Year) appendectomy gall bladder cataract surgery Hospitalization History Reason Date(Month/Year) Ultrasound both legs for veins 2021
--- OUTSIDE RECORDS SUMMARY | 2024-04-22 07:41 | XMS_ITS ---
Author Organization [facility] Address [address] [facility] [place] [address] Care Team Providers Care Electrician Substation Name Role Phone Monica Darby Primary Care Provider Unavailab Fabricio Granados Unavailable [phone] Allergies No Known Allergies REASON FOR VISIT [...] Ordered Date Performed Result Body Sit e 29552-DWTKDMP NAIL, 1-02/24/2024 N/A 76090-DMNW SKIN LESIONS, OVER 4 02/24/2024 N/A U7391-FYAYFVYX DYSTROPHIC NAILS ANY # 02/24/2024 N/A Encounters Encounter Location Date Provider Diagnosis [facility] [address] [address] 02/24/2024 Fabricio Juan Type 2 diabetes mellitus [...] Treatment Pending Test Test Name Order Date 11649-KIIVPHC NAIL, 1-5 02/24/2024 26070-DZGQ SKIN LESIONS, OVER 4 02/24/20 24 F6212-PKABGYEO DYSTROPHIC NAILS ANY # Next Appt Details Follow Up: prn, Reason: Provider Name:Fabricio Juan , 05/25/2024 11:30:00 AM, [address] [place], [address], Procedure Notes * Category Sub-Category Detail Notes Keratoma Treatment Parring or Cutting o f Benign Hyperkeratotic Lesion(s) (-57) More than 4 Lesions - The Benign hyperkeratotic lesions, as described above were pared, and/or cut utilizing a sterile 15 blade, tissue nippers, and/or dremel - 97974 , Q8 Debride Nails 1-5 Procedure: Performance of this nail treatment by a nonprofessional would put this patients foot and overall health at risk. Therefore, nail debridement was performed extensively to reduce/remove overall nail length, girth, thickness, subungual debris, and necrotic tissue, by manual and/or electrical means through the use of a nail nipper and/or dremel-type milk powder grinder, to a more viable healthy nail plate or bed tissue 1-5. Silver nitrate used for any petechial bleeding as necessary. Definitive antifungal treatment options have been reviewed and discussed with the patient. The patient chooses, no pharmaceutical tx - 01712 Nail Reduction Nail Reduction (-27) Trimming o f dystrophic nails performed to reduce/remove overall nail length and girth, by manual and electrical means with use of a nail nipper and/or dremel, to more viable healthy nail plate or bed tissue, any number - G0127 , Q8 Progress Notes * Jesenia CASEYOB:1940 (83 yo M)Acc No.[id number]:02/24/2024 Progress Note Patient:?Fady Jhonny Provider:?Fabricio Juan DPM :1940???Age:83 Y???Sex:Male Romel e:02/24/2024 Address:[address] [place] [address] [facility] Pcp:Monica Darby Subjective: * Chief Complaints: * [...] mellitus with diabetic peripheral angiopathy without gangrene?Procedure: 94094-UPCH SKIN LESIONS, OVER 4 ?Procedure: O1557-GWEXDJCH DYSTROPHIC NAILS ANY # * Procedures:?Debride Nails 1-5:?Procedure:?Performance of this nail treatment by a nonprofessional would put this patients foot and overall health at risk. Therefore, nail debridement was performed extensively to reduce/remove overall nail length, girth, thickness, subungual debris, and necrotic tissue, by manual and/or electrical means through the use of a nail nipper and/or dremel-type milk powder grinder, to a more viable healthy nail plate or bed tissue 1-5. Silver nitrate used for any petechial bleeding as necessary. Definitive antifungal treatment options have been reviewed and discussed with the patient. The patient chooses, no pharmaceutical tx - 40727.?Keratoma Treatment:?Parring or Cutting of Benign Hyperkeratotic Lesion(s)?(-57) More than 4 Lesions - The Benign hyperkeratotic lesions, as described above were pared, and/or cut utilizing a sterile 15 blade, tissue nippers, and/or dremel - 52167 , Q8.?Nail Reduction:?Nail Reduction?(-27) Trimming of dystrophic nails performed to reduce/remove overall nail length and girth, by manual and electrical means with use of a nail nipper and/or dremel, to more viable healthy nail plate or bed tissue, any number - G0127 , Q8.? * Procedure Codes:?G0127 TIFFANIE ING DYSTROPHIC NAILS ANY #, Modifiers: XS , [id number] DEBRIDE NAIL, 1-5, Modifiers: XS 58869 TRIM SKIN LESIONS, OVER 4, Modifiers: XS [...] Juan DPM Date:?2023 Generated for Danilo moreno/Kofi/Adrian on:?04/22/2024 07:40 AM EST History and Physical Notes * HPI [...] fashion, no fissure(s) present, B/L Vascular DP PULSES (B): 0/4, B/L PT PULSES (B): 0/4, B/L CAPILLARY FILL TIME: delayed, all digits , B/L TEMPERTURE GRADIENT (C): decreased, cool to cool, proximal to distal, B/L TROPHIC CONDITION-TEXTURE/ELASTICITY/TURGOR/HAIR GROWTH (B): decreased, fragile, thin, shiny skin, wi th sparse to absent hair growth, B/L EDEMA (C): 1/4, non-pitting, wi thout aching pain, B/L, Leg(s), Ankle(s) CLAUDICATION (C): denies, B/L REST PAIN: denies, B/L PIGMENTATION: rubrous, B/L Nails NAILS are: Elongated, overg rown, dystrophic, lytic, greater than 3mm thick, discolored and friable with crumbly malodorous subungual debris, with pain on palpation, TA, T5, remaining nails are elongated, overgrown, dystrophic
--- OUTSIDE RECORDS SUMMARY | 2024-04-22 07:41 | XMS_ITS ---
Author Organization [facility] Address [address] [facility], [place] [address] Care Team Providers Care Director Apparel Name Role Phone Monica Darby Primary Care Provider Unavailab Fabricio Granados Unavailable [phone] Allergies No Known Allergies REASON FOR VISIT [...] Ordered Date Performed Result Body Sit e 99933-LRZLVCW NAIL, 1-5 11/21/2023 N/A 26323-WPSF SKIN LESIONS, OVER 4 11/21/2023 N/A [id number] DYSTROPHIC NAILS ANY # 11/21/2023 N/A Encounters Encounter Location Date Provider Diagnosis [facility] [address] [address] 11/21/2023 Fabricio Juan Type 2 diabetes mellitus [...] days Pending Test Test Name Order Date [id number]-[id number] NAIL, 1-5 11/21/2023 36411-ISEP SKIN LESIONS, OVER 4 11/21/19 24 W6717-[id number] DYSTROPHIC NAILS ANY # Next Appt Details Follow Up: prn, Reason: Provider Name:Fabricio Juan , 05/25/2024 11:30:00 AM, [address] [place], [address], Procedure Notes * Category Sub-Category Detail Notes Keratoma Treatment Parring or Cutting o f Benign Hyperkeratotic Lesion(s) 73147 ( >4 Lesions) - The Benign hyperkeratotic [...] as necessary. Patient chooses, no pharmaceutical tx (24702) Nail Reduction Nail Reduction Trimming of dyst rophic nails performed to reduce/remove overall nail length and girth, by manual and electrical means with use of a nail nipper and/or dremel, to more viable healthy nail plate or bed tissue 6-10 (B5498-G3) Progress Notes * Jesenia CASEYOB:1940 (83 yo M)Acc No.[id number]:11/21/2023 Progress Note Patient:?Jhonny Casey Provider:?Fabricio Juan DPM :1940???Age:83 Y???Sex:Male Romel e:11/21/2023 Address:[address] [place] [address] [place] Pcp:Monica Darby Subjective: * Chief Complaints: * [...] mellitus with diabetic peripheral angiopathy without gangrene?Procedure: 53132-GJBG SKIN LESIONS, OVER 4 ?Procedure: F6994-IYGBTYCE DYSTROPHIC NAILS ANY # 3.?Xerosis of skin? [...] as necessary. Patient chooses, no pharmaceutical tx (49662).?Keratoma Treatment:?Parring or Cutting of Benign Hyperkeratotic Lesion(s)?26599 ( >4 Lesions) - The Benign hyperkeratotic [...] DYSTROPHIC NAILS ANY #, Modifiers: XS , [id number] DEBRIDE NAIL, 1-5, Modifiers: XS 72006 TRIM SKIN LESIONS, OVER 4, Modifiers: XS [...] DPM Date:?2023 Generated for Danilo moreno/Kofi/Adrian on:?04/22/2024 07:41 AM EST History and Physical Notes * [...] distal, B/L TROPHIC CONDITION-TEXTURE/ELASTICITY/TURGOR/HAIR GROWTH (B): decreased, B/L EDEMA (C): 1/4, non-pitting, wi thout aching pain, B/L, Leg(s), Ankle(s) CLAUDICATION (C): denies, B/L REST PAIN: denies, B/L PIGMENTATION: rubrous, B/L Nails NAILS are: Elongated, overg rown, dystrophic, lytic, greater than 3mm thick, discolored and friable with crumbly malodorous subungual debris, with pain on palpation, TA, T5, remaining nails are elongated, overgrown, dystrophic
--- OUTSIDE RECORDS SUMMARY | 2024-04-22 07:41 | XMS_ITS ---
Author Organization [facility] Address [address] [place] [address] Care Team Providers Care Animal Tech Name Role Phone Monica Darby Primary Care Provider Unavailab Fabricio Granados Unavailable [phone] trotter Encounters Encounter Location Date Provider Diagnosis [address] [address] 09/12/2023 Fabricio Juan Plan Of Treatment Next Appt Details Provider Name:Fabricio Juan , 05/25/2024 11:30:00 AM, [address] [place], [address], Progress Notes * Jesenia CASEYOB:1940 (83 yo M)Acc No.[id number]:09/12/2023 Progress Note Patient:?Jhonny CASEY Provider:?Fabricio Juan DPM :1940???Age:82 Y???Sex:Male Romel e:09/12/2023 Address:[address] [place] Pcp:Monica Darby Subjective: * Chief Complaints: * ???1. Dr trotter. * Medical History:? Objective: * Vitals:? Assessment: Plan: * Treatment: * Images: * The named appointment provid er may or may not be the originator of this progress note, and it is not deemed complete until electronically signed by the appointment provider. Sign off status: Pending * Provider:?Fabricio Juan DPM Date:?2023 Generated for Danilo moreno/Kofi/Adrian on:?04/22/2024 07:41 AM EST
[2024-04-22 08:55] LABS: Prostate Specific Antigen < 0.10 ng/mL (<0.05-4.0)
[2024-04-26 15:58] LABS: Testosterone, Total 37 ng/dL (250-1100)
== END 2024-04-22 07:40 | disposition home or self-care (01) ==
LOC: HO.LAB 07:39
PROVIDERS: PCP Internal Medicine; Visit Provider Urology
DX: C61 Malignant neoplasm of prostate (principal); Z12.5 Encounter for screening for malignant neoplasm of prostate
CPT/HCPCS: 36415; 84153; 84403

== ENCOUNTER 2024-05-04 10:04 | Outpatient (AMB) | payer MEDICARE, SELFPAY ==
--- NOTE | 2024-05-04 10:18 | A.OFFVIS_ITS ---
Intake Visit Reasons: GnRH/Labs(set) Intake Note: Patient is present for GNRH/LABS Urology Medication:FINASTERIDE Antibiotic Allergy:NONE Blood Thinner:NONE Foam Dispenser Required: No Allergies No Known Allergies [No Known Allergies*] Allergy (Verified 05/04/24 10:19) HPI Comments Details: Jhonny is a pleasant male. He is a patient of Dr. Darby. He seen for the following urologic conditions - prostate cancer Here for third GnRH Good response to GnRH therapy. PSA nondetectable Plan for 18 month course. Recommend bone support during hormonal therapy with Citracal and vitamin-D Plan for last PSA in 6 months Continue finasteride PSA 02/10 13.2, 05/14 3.9 T 1.6, 08/12 <0.1 T6, 10/12 <0.1, 05/15 <0.1 T 37 GnRH 04/12, 11/11, 05/15 Prostate cancer 10/1123 grade group 3, low volume Prostate biopsy for elevated PSA - 9.6, free 14% 80 g prostate at time of TRUS, pT1c Meghan score:?7 (4+3) (left apex lateral) 80% Periprostatic fat inv.: Not identified Seminal vesicle inv.: Not identified Perineural inv.: Not identified Lymphovascular invasion: Not identified [facility] Medical History (Updated 03/30/24 @ 11:54 by Dov Luz MD) Cough Hypersomnia Stroke COPD exacerbation COPD (chronic obstructive pulmonary disease) Allergic rhinitis Surgical History Hx of cataract surgery (~09/2023) S/P tonsillectomy and adenoidectomy Hx of cholecystectomy History of appendectomy Family History Mother No problems noted. Father Heart disease Social History Alcohol intake: former Patient Tobacco Use Status: Former Tobacco user Years Smoked: 40 +/- Office Meds Eligard (6 month) 45 mg (6 month) subcutaneous syringe Performing Provider: Gerson Beatty MD [place] [facility] Administered by: Asher Muñoz LPN on 05/04/24 10:45 Dose Route Admin Location Dispensed Lot Number Expiration Date [employer] Plant Operator 45 mg subcut left arm 45 mg [id number] 09/19/25 60640-329-73 [place]. Assessment & Plan Assessment & Plan (1) Prostate cancer: Code(s): C61 - Malignant neoplasm of prostate Category: Medical (2) Elevated PSA: Code(s): R97.20 - Elevated prostate specific antigen [PSA] Category: Medical Plan Six-month follow-up labs Orders: Orders AMB Leuprolide Injection - Practice Supplied Today C61 - Malignant neoplasm of prostate Patient Instructions: Imaging studies, laboratory and physical exam results were discussed and reviewed in detail. No major barriers to patient understanding were identified. An opportunity to ask questions regarding the treatment plan was provided. All questions were answered. The patient expressed understanding and agreement with the above treatment plan. The patient is aware they should contact our office by phone for worsening of their current condition or the appearance of new urologic symptoms. Compliance is encouraged with any medications and followup testing that is ordered. It is a privilege to participate in the urologic care of your patient. If you have any questions or concerns regarding treatment for the above conditions, or other urologic issues, please do not hesitate to contact me. The office telephone contact is [phone]. This note is constructed using voice recognition software. While every effort has been made to ensure accuracy freezer assistant errors may have been included. Yours sincerely, Dr Gerson Beatty MD, [facility] - Urology Providers of Expert, Compassionate Care for the Genitourinary System Coding Level of Care Code Est Pt Level 3 (11978) Diagnoses Prostate cancer C61 Elevated PSA R97.20
--- OUTSIDE RECORDS SUMMARY | 2024-05-04 11:31 | XMS_ITS ---
Author Organization [facility] Address [address] [place] [address] Care Team Providers Care Defensive Fire Control Systems Operator Name Role Phone Monica Darby Primary Care Provider UnavailJulio Cesar Ba Unavailable [phone] ALLERGIES No Known Allergies REASON FOR VISIT patient presents today for diarrhea MEDICATIONS Medication SIG (Take, Route, Frequency, Duration) Notes Start Date End Date Status glipiZIDE 5 MG 1 tablet Orally Once a day Active Breo Ellipta 100-25 MCG/INH 1 puff Inhalation Once a day Active Mucinex DM 30-600 MG 1 tablet as needed Orally every 12 hrs Active Flonase Active Simvastatin 40 MG 1 tablet in the even ing Orally Once a day Active Loperamide HCl Activ e Finasteride 5 MG 1 tablet Orally Once a day for 30 day(s) Active ProAir HFA Active Pepcid 40 MG 1 tablet at bedtime as needed Orally Once a day Active Lisinopril-hydroCHLOROthi azide 20-12.5 MG 1 tablet Orally Once a day for 30 day(s) Active Famotidine 40 MG 1 tablet Orally Once a day Active Calcium + D Active ZyrTEC Allergy 10 MG 1 tablet Orally Onc e a day for 30 day(s) Active Aspir-Low 81 MG 1 tablet Orally Once a day for 30 day(s) Not-Taking Imodium A-D 2 MG 1 tablet as needed Orally prn prn Active Omeprazole 20 MG 1 capsule Orally Onc e a day Not-Taking SOCIAL HISTORY Tobacco Use: Social History Observation [...] ast year? No Points 0 Interpretation Negative VITAL SIGNS BMI 24.51 kg/m2 04/27/2024 Blood pressure systolic 00 mm Hg 04/27/19 25 Blood pressure diastolic 00 mm Hg 025 Height 69 in 04/27/2024 Weight 166 lbs 04/27/2024 Encounters Encounter Location Date Provider Diagnosis [facility] [address] [place] [address] 04/27/2024 Julio Cesar Chaparro Diarrhea, unspecifie d type R19.7 and Iron deficiency anemia due to chronic blood loss D50.0 ASSESSMENTS Encounter Date Diagnosis Assessment Notes Treatment Notes Treatment Clinical Notes 04/27/2024 Diarrhea, unspecified type (ICD-10 - R19.7) Continue the Loperamide as needed for any diarrhea. Call me things worsen. 04/27/2024 Iron deficiency anemia due to chronic blood loss (ICD-10 - D50.0) Continue the Pantoprazole for your stomach PLAN OF TREATMENT Treatment Notes Assessment Notes Diarrhea, unspecified type Continue the Loperamide as needed for any diarrhea. Call me things worsen. Iron deficiency anemia due t o chronic blood loss Continue the Pantoprazole for your stoma ch Next Appt Details Follow Up: prn, Reason:
--- OUTSIDE RECORDS SUMMARY | 2024-05-04 11:31 | XMS_ITS | Patient Health Record ---
Author Organization [facility] Address [address] [place] [address] Care Team Providers Care Human Development Professor Name Role Phone Monica Darby Primary Care Provider UnavailJulio Cesar Ba Unavailable [phone] ALLERGIES No Known Allergies REASON FOR REFERRAL Referring Provider First Name Monica Referring Provider Last Name Wilner Referring Provider Speciality Internal M edicine Referred Organization [facility] Referred Provider Julio Cesar Chaparro Referred Address [address] [place] [address],[address],[place], [place],[address],[place] Referred Provider Specialty Gastroentero logy Referral Priority Routine MEDICATIONS Medication SIG (Take, Route, Frequency, Duration) Notes Start Date End Date Status glipiZIDE 5 MG 1 tablet Orally Once a day Active Breo Ellipta 100-25 MCG/INH 1 puff Inhalation Once a day Active Mucinex DM 30-600 MG 1 tablet as needed Orally every 12 hrs Active Famotidine 40 MG 1 tablet Orally Once a day Active Imodium A-D 2 MG 1 tablet as needed Orally prn prn Active Omeprazole 20 MG 1 capsule Orally Onc e a day Not-Taking Aspir-Low 81 MG 1 tablet Orally Once a day for 30 day(s) Not-Taking Calcium + D Active Loperamide HCl Activ e Finasteride 5 MG 1 tablet Orally Once a day for 30 day(s) Active ProAir HFA Active Pepcid 40 MG 1 tablet at bedtime as needed Orally Once a day Active Lisinopril-hydroCHLOROthi azide 20-12.5 MG 1 tablet Orally Once a day for 30 day(s) Active Flonase Active Simvastatin 40 MG 1 tablet in the even ing Orally Once a day Active ZyrTEC Allergy 10 MG 1 tablet Orally Onc e a day for 30 day(s) Active IMMUNIZATIONS [...] ast year? No Points 0 Interpretation Negative PROBLEMS Problem Type ICD Code Onset Dates Problem Status W/U Status Risk SNOMED Code Notes Problem 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) Active confirmed 579388851 Problem Diarrhea, unspecified type (R19.7) Active confirmed 14173502 Problem 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) Active confirmed 740304993 VITAL SIGNS Blood pressure diastolic 00 mm Hg 04/27/2024 Height 69 in 04/27/2024 Blood pressure systolic 00 mm Hg 04/27/2024 Weight 166 lbs 04/27/2024 BMI 24.51 kg/m2 04/27/2024 Encounters Encounter Location Date Provider Diagnosis [facility] [address] [place] [address] 04/27/2024 Julio Cesar Chaparro Diarrhea, unspecifie d type R19.7 and Iron deficiency anemia due to chronic blood loss D50.0 ASSESSMENTS Encounter Date Diagnosis Assessment Notes Treatment Notes Treatment Clinical Notes 04/27/2024 Iron deficiency anemia due to chronic blood loss (ICD-10 - D50.0) Continue the Pantoprazole for your stomach 04/27/2024 Diarrhea, unspecified type (ICD-10 - R19.7) Continue the Loperamide as needed for any diarrhea. Call me things worsen. PLAN OF TREATMENT Pending Test Test Name [...] Date [employer] PREFERRED [address] [place] [address] [phone] [id number] LOPEZ CASEY Self - patient is the insured MEDICAL (GENERAL) HISTORY Medical History History ICD Code Strokes--sees Dr. Ornelas NIDDM Hypertension Asthma COPD Denies RI,renal disease Iron deficiency anemia-he wa s hospitalized [...] to that hospitalization in August as well. Prostate cancer - Dr. Beatty Surgical History Surgery Date(Month/Year) Appendectomy Cholecystectomy Tonsils and Adenoids
== END 2024-05-04 10:54 | disposition home or self-care (01) ==
PROVIDERS: PCP Internal Medicine; Visit Provider Urology
DX: C61 Malignant neoplasm of prostate (principal); R97.20 Elevated prostate specific antigen [PSA]
CPT/HCPCS: 99213

== ENCOUNTER → 2024-05-04 10:04 | Outpatient (BNVA) | payer MEDICARE, SELFPAY | PROVIDERS: PCP Internal Medicine; Visit Provider Urology | DX: C61 Malignant neoplasm of prostate (principal); R97.20 Elevated prostate specific antigen [PSA] | CPT/HCPCS: 96402; 99212; J9217 ==

== ENCOUNTER 2024-05-11 12:55 | Outpatient (AMB) | payer MEDICARE, SELFPAY ==
[2024-05-11 13:06] VITALS: BMI 25.0
--- NOTE | 2024-05-11 13:06 | A.OFFVIS_ITS ---
Vital Signs 05/11/24 13:06 Height 5 ft 9 in Weight 169 lb BMI 25.0 Intake Visit Reasons: 1 yr follow up Arterial US 03/16/24 Intake Note: 1 yr follow up arterial US 03/16/24. Pt states about 4-5 months ago his legs did not want to go , states he had weakness in bilateral LE. Accompanied by: Self / Same As Patient Allergies No Known Allergies [No Known Allergies*] Allergy (Verified 05/11/24 13:08) HPI HPI 1 yr follow up Arterial US 03/16/24: Details: Very pleasant 83-year-old gentleman presents for routine arterial surveillance follow-up. He has had no interval issues in appears to be doing quite well. This all began as a nonhealing left toe nail. It has gone on to heal. He has had no other interval issues. He is being followed by Nephrology. Last GFR is 38. [facility] Medical History Cough Hypersomnia Stroke COPD exacerbation COPD (chronic obstructive pulmonary disease) Allergic rhinitis Surgical History Hx of cataract surgery (~09/2023) S/P tonsillectomy and adenoidectomy Hx of cholecystectomy History of appendectomy Family History Mother No problems noted. Father Heart disease Social History Alcohol intake: former Patient Tobacco Use Status: Former Tobacco user Years Smoked: 40 +/- Review of Systems Const All systems reviewed & are unremarkable except as noted in HPI and below Reports no additional complaints ENT Reports Normal hearing present Card Denies chest pain, Denies chest pain at rest, Denies chest pain with activity and Denies pedal edema Resp Denies cough GI Denies abdominal pain Musc Denies abnormal gait, Denies muscle cramps and Denies radiating pain into limb Skin/Breast Denies skin ulcer and Denies wounds Neuro Reports Normal hearing present and Denies abnormal gait Psych Reports no additional complaints Physical Exam Vital Signs: BMI result Body Mass Index 25.0 Const General: cooperative, healthy appearing and comfortable Orientation/consciousness: oriented to person, oriented to place and oriented to time HEENT Head: Yes normal to inspection Neck Neck: Yes normal visual inspection Carotids: no bruits Chest Chest palpation & inspection: normal inspection of the chest Resp Effort & Inspection: normal respiratory effort and able to speak in complete sentences Auscultation: clear to auscultation bilaterally, no crackles, no rales, no rhonchi and no wheezes Cardio Rate: regular rate Rhythm: regular rhythm Heart sounds: S1 normal heart sound present and S2 normal heart sound present Bruits: no carotid bruits Peripheral pulses: Peripheral pulses 2+ throughout GI Inspection: Yes normal to inspection Skin Wounds: no wounds Hair: normal Neuro General: oriented to person, oriented to place and oriented to time Cranial nerves: Yes CN's II-XII intact bilaterally and Yes Normal hearing present Cognition (Neuro): normal cognition Motor exam (neuro): 5/5 motor strength present throughout Extrem Other: venous exam: No significant superficial varicosities or spider telangiectasias, minimal edema General: No clubbing, No cyanosis and No edema Psych Appearance: grossly normal Mental Status: mental status grossly normal Speech and movement: Normal speech and movement present Results Reviewed Results Reviewed: Noninvasive arterial testing dated 03/16/2024 demonstrates FUNMI on the right of 1.06 and on the left of 1.03. Written report and images were reviewed. Assessment & Plan Assessment & Plan (1) PAD (peripheral artery disease): Code(s): I73.9 - Peripheral vascular disease, unspecified Category: Medical Plan: In short patient has stable claudication. I did review the pathophysiology of peripheral vascular disease with the patient. In addition we did discuss routine conservative measures including a healthy diet and the importance of exercise and ambulation. We did discuss risk factor modification. The patient will continue to to follow-up with surveillance follow-up in approximately 1 year. Thank you for allowing us to participate in this patient's care. If there are any questions or concerns please do not hesitate to contact us. (2) CKD (chronic kidney disease) stage 3, GFR 30-59 ml/min: Code(s): N18.30 - Chronic kidney disease, stage 3 unspecified Category: Medical Qualifiers: Chronic kidney disease stage 3 subtype: stage 3b (GFR 30-44) Qualified Code(s): N18.32 - Chronic kidney disease, stage 3b Plan: Being followed by Nephrology. Orders: Orders US arterial duplex LE BI 1 Year I73.9 - Peripheral vascular disease, unspecif ied Coding Level of Care Code Est Pt Level 4 (76983) Complex EM visit Add On G2211 Diagnoses PAD (peripheral artery disease) I73.9 Stage 3b chronic kidney disease N18.32 Chronic kidney disease stage 3 subtype: stage 3b (GFR 30-44)
--- OUTSIDE RECORDS SUMMARY | 2024-05-11 14:32 | XMS_ITS ---
Author Organization [facility] Address [address] [place] [address] Care Team Providers Care Master Mechanic Name Role Phone Monica Darby Primary Care Provider UnavailJulio Cesar Ba Unavailable [phone] ALLERGIES No Known Allergies REASON FOR VISIT [...] 04/27/2024 Encounters Encounter Location Date Provider Diagnosis [facility] [address] [place] [address] 04/27/2024 Julio Cesar Chaparro Diarrhea, unspecifie d [...]
--- OUTSIDE RECORDS SUMMARY | 2024-05-11 14:32 | XMS_ITS | Clinical Summary ---
Author Organization [facility] Address [address] [place] [address] Care Team Providers Care Retail Project Merchandiser Name Role Phone Unavailable Primary Care Provider Unavailabl e Social History Tobacco Use Types Packs/Day Years Used Date Smoking Tobacco: Never Assessed Sex and Gender Information Value Date Recorded Sex Assigned at Not on file Gender Identity Not on file Sexual Orientation Not on file Plan of Treatment Health Maintenance Due Date Last Done Comments DTaP,Tdap,and Td Vaccines (1 - Tdap) 11/18/1959 Zoster Vaccines (1 of 2) 11/18/1989 Pneumococcal Vaccine: 65+ Ye ars (1 of 1 - PCV) 11/18/2004 RSV Immunization Patients 60 + Years Old (1 - 1-dose 75+ series) 11/18/2014 COVID-19 Vaccine ( - 2023-2 5 season) 2023 Influenza Vaccine (#1) 2023 HIB Vaccines Aged Out No longer eligi ble based on patient's age to complete this topic HPV Vaccines Aged Out No longer eligi ble based on patient's age to complete this topic Hepatitis A Vaccines Aged Out No long er eligible based on patient's age to complete this topic Hepatitis B Vaccines Aged Out No long er eligible based on patient's age to complete this topic IPV Vaccines Aged Out No longer eligi ble based on patient's age to complete this topic MMR Vaccines Aged Out No longer eligi ble based on patient's age to complete this topic Meningococcal ACWY Vaccine Aged Out N o longer eligible based on patient's age to complete this topic RSV Immunization Patients Un aicha 20 months Aged Out No longer eligible b ased on patient's age to complete this topic Varicella Vaccines Aged Out No longer eligible based on patient's age to complete this topic
--- OUTSIDE RECORDS SUMMARY | 2024-05-11 14:33 | XMS_ITS | Clinical Summary ---
Author Organization [facility] Address [address] [place] [address] Care Team Providers Care Delicate Fabrics Presser Name Role Phone Monica Darby MD Primary Care Provider Allergies No known active allergies Medications Breo Ellipta 100-25 MCG/ACT aerosol powder TAKE 1 PUFF INHALED DAILY FOR COPD FOR 90 DAYS 3 Active glipiZIDE (GLUCOTROL XL) 5 MG 24 hr tablet Take 5 mg by mouth 1 (one) time each day 3 Active OneTouch Ultra test strip CHECKE SUGAR DAILY 3 Active Lancets (OneTouch Delica Plus Ashsce09L) misc USE TO CHECK SUGARS DAILY 3 Active propranolol (INDERAL) 60 MG tablet Take 60 mg by mouth 3 Active simvastatin (ZOCOR) 40 MG tablet Take 40 mg by mouth 3 Active famotidine (PEPCID) 40 MG tablet Take 40 mg by mouth 1 (one) time each day Active ammonium lactate (AMLACTIN) 12 % cream 1 APPLICATION TO AFFECTED AREA EXTERNALLY TO FEET TWICE A DAY 3 Active hydroCHLOROthia zide (MICROZIDE) 12.5 MG capsule Take 12.5 mg by mouth 1 (one) time each day 3 Active cetirizine (ZyrTEC) 5 MG tablet Take 10 mg by mouth 1 (one) time each day Active Active Problems Problem Noted Date Diagnosed Date 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 08/22/2022 Social History Tobacco Use Types Packs/Day Years Used Date Smoking Tobacco: Former Cigarettes Smokeless Tobacco: Never Tobacco Cessation:Counseling Given: Not Answered Alcohol Use Standard Drinks/Week Comments Not Currently 0 (1 standard drink = 0.6 oz pur e alcohol) Sex and Gender Information Value Date Recorded Sex Assigned at Not on file Legal Sex Male 2:12 PM EST Gender Identity Not on file Sexual Orientation Not on file Last Filed Vital Signs Vital Sign Reading Time Taken Comments Blood Pressure 129/64 12/09/2022 1:56 PM EDT Pulse 87 12/09/2022 1:56 PM EDT Temperature - - Respiratory Rate - - Oxygen Saturation 98% 12/09/2022 1:56 PM EDT Inhaled Oxygen Concentration - - Weight 77 kg (169 lb 12.8 oz) 12/09/2022 1:56 PM EDT Height 175.3 cm (5' 9 ) 10/03/2022 1:27 PM EDT Body Mass Index 25.08 10/03/2022 1:27 PM EDT Plan of Treatment Health Maintenance Due Date Last Done Comments Pneumococcal Vaccine: 65+ Ye ars (1 of 2 - PCV) 11/18/1946 Diabetes: Hemoglobin A1C 05/15/2022 Diabetes: Ophthalmology Exam 05/15/2022 Diabetes: Pedal Pulse Checked 05/15/2022 Diabetes: Sensory Foot Exam 05/15/2022 Diabetes: Visual Foot Exam 05/15/2022 Influenza Vaccine (#1) 2023 Hepatitis B Vaccine Aged Out No longe r eligible based on patient's age to complete this topic Insurance [facility] Care Teams Delicate Fabrics Presser Relationship Specialty Start Date End Date Monica Darby MD [address] [place] [address] PCP - General Internal Medicine 05/14/22
--- OUTSIDE RECORDS SUMMARY | 2024-05-11 14:33 | XMS_ITS | Patient Health Record ---
Author Organization [facility] Address [address] [place] [address] Care Team Providers Care Educational Audiologist Name Role Phone Monica Darby Primary Care Provider UnavailJulio Cesar Ba Unavailable [phone] ALLERGIES No Known Allergies REASON FOR REFERRAL Referring Provider First Name Monica Referring Provider Last Name Wilner Referring Provider Speciality Internal M edicine Ref[facility] Referred Provider Julio Cesar Chaparro Referred Address [address] [place] [address],[address],[place], [place],[address],[place] Referred Provider Specialty Gastroentero logy Referral Priority [...] 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) Active confirmed 579840164 Problem Diarrhea, unspecified type (R19.7) Active confirmed 70860721 Problem 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 [place] [address] 04/27/2024 Julio Cesar Chaparro Diarrhea, unspecifie d [...] MEDICARE PREFERRED [address] [place] [phone] [id number] LOPEZ CASEY Self - patient is the insured MEDICAL (GENERAL) HISTORY Medical History History ICD Code Strokes--sees Dr. Ornelas NIDDM Hypertension Asthma COPD Denies [place],renal disease Iron deficiency anemia-he wa s hospitalized [...]
== END 2024-05-11 13:22 | disposition home or self-care (01) ==
PROVIDERS: PCP Internal Medicine; Visit Provider Surgery Vascular Surgery
DX: I73.9 Peripheral vascular disease, unspecified (principal); N18.32 Chronic kidney disease, stage 3b
CPT/HCPCS: 99214; G2211

== ENCOUNTER → 2024-05-11 12:55 | Outpatient (BNVA) | payer MEDICARE, SELFPAY | PROVIDERS: PCP Internal Medicine; Visit Provider Surgery Vascular Surgery | DX: I73.9 Peripheral vascular disease, unspecified (principal); N18.32 Chronic kidney disease, stage 3b | CPT/HCPCS: 99212 ==

== ENCOUNTER 2024-05-31 07:17 | Outpatient (REF) | payer MEDICARE, SELFPAY ==
--- OUTSIDE RECORDS SUMMARY | 2024-05-31 07:20 | XMS_ITS ---
Author Organization [facility] Address [address] [facility] [place] [address] Care Team Providers Care Plastic Cnc Machine Operator Name Role Phone Monica Darby Primary Care Provider Unavailab Fabricio Granados Unavailable [phone] Allergies No Known Allergies REASON FOR VISIT [...] Ordered Date Performed Result Body Sit e 73251-SSYTXXL NAIL, 1-02/24/2024 N/A 47472-SWMM SKIN LESIONS, OVER 4 02/24/2024 N/A E1851-SSYNSMLQ DYSTROPHIC NAILS ANY # 02/24/2024 N/A Encounters Encounter Location Date Provider Diagnosis [facility] [address] [address] 02/24/2024 Fabricio Juan Type 2 diabetes mellitus [...] Treatment Pending Test Test Name Order Date 38978-MWGLRMA NAIL, 1-5 02/24/2024 71184-YASU SKIN LESIONS, OVER 4 02/24/20 24 H4373-MDLSOYSF DYSTROPHIC NAILS ANY # Next Appt Details Follow Up: prn, Reason: Provider Name:Fabricio Juan , 08/24/2024 02:45:00 PM, [address] [place], [address], Procedure Notes * Category Sub-Category Detail Notes Keratoma Treatment Parring or Cutting o f Benign Hyperkeratotic Lesion(s) (-57) More than 4 Lesions - The Benign hyperkeratotic lesions, as described above were pared, and/or cut utilizing a sterile 15 blade, tissue nippers, and/or dremel - 65642 , Q8 Debride Nails 1-5 Procedure: Performance of this nail treatment by a nonprofessional would put this patients foot and overall health at risk. Therefore, nail debridement was performed extensively to reduce/remove overall nail length, girth, thickness, subungual debris, and necrotic tissue, by manual and/or electrical means through the use of a nail nipper and/or dremel-type grinder set up operator internal, to a more viable healthy nail plate or bed tissue 1-5. Silver nitrate used for any petechial bleeding as necessary. Definitive antifungal treatment options have been reviewed and discussed with the patient. The patient chooses, no pharmaceutical tx - 55365 Nail Reduction Nail Reduction (-27) Trimming o f dystrophic nails performed to reduce/remove overall nail length and girth, by manual and electrical means with use of a nail nipper and/or dremel, to more viable healthy nail plate or bed tissue, any number - G0127 , Q8 Progress Notes * Jesenia CASEYOB:1940 (83 yo M)Acc No.[id number]:02/24/2024 Progress Note Patient:?Fady Jhonny Provider:?Fabricio Juan DPM :1940???Age:83 Y???Sex:Male Romel e:02/24/2024 Address:[address] [place] [address] [id number] Pcp:Monica Darby Subjective: * Chief Complaints: * [...] mellitus with diabetic peripheral angiopathy without gangrene?Procedure: 36619-RFZN SKIN LESIONS, OVER 4 ?Procedure: W9076-UFPPPKVY DYSTROPHIC NAILS ANY # * Procedures:?Debride Nails 1-5:?Procedure:?Performance of this nail treatment by a nonprofessional would put this patients foot and overall health at risk. Therefore, nail debridement was performed extensively to reduce/remove overall nail length, girth, thickness, subungual debris, and necrotic tissue, by manual and/or electrical means through the use of a nail nipper and/or dremel-type grinder set up operator internal, to a more viable healthy nail plate or bed tissue 1-5. Silver nitrate used for any petechial bleeding as necessary. Definitive antifungal treatment options have been reviewed and discussed with the patient. The patient chooses, no pharmaceutical tx - 33532.?Keratoma Treatment:?Parring or Cutting of Benign Hyperkeratotic Lesion(s)?(-57) More than 4 Lesions - The Benign hyperkeratotic lesions, as described above were pared, and/or cut utilizing a sterile 15 blade, tissue nippers, and/or dremel - 35536 , Q8.?Nail Reduction:?Nail Reduction?(-27) Trimming of dystrophic nails performed to reduce/remove overall nail length and girth, by manual and electrical means with use of a nail nipper and/or dremel, to more viable healthy nail plate or bed tissue, any number - G0127 , Q8.? * Procedure Codes:?G0127 TIFFANIE ING DYSTROPHIC NAILS ANY #, Modifiers: XS , F773237 DEBRIDE NAIL, 1-5, Modifiers: XS 48292 TRIM SKIN LESIONS, OVER 4, Modifiers: XS [...] Juan DPM Date:?2023 Generated for Danilo moreno/Kofi/Adrian on:?05/31/2024 07:20 AM EST History and Physical Notes * [...]
--- OUTSIDE RECORDS SUMMARY | 2024-05-31 07:20 | XMS_ITS | Patient Health Record ---
[facility] Address [address] [facility] [place] [address] Care Team Providers Care Corporate Wellness Coordinator Name Role Phone Monica Darby Primary Care Provider Unavailab Fabricio Granadso Unavailable [phone] Allergies No Known Allergies Results Component Value [...] Referring Provider Last Name Wilner [facility] Referred Provider Fabricio Juan Referred Address [address] [facility],[address], Referred Provider Specialty Podiatry Referral Priority Routine Medications Medication SIG (Take, Route, Frequency, Duration) Notes Start Date End Date Status Propranolol HCl 40 MG as directed Orally [...] Wear Daily for 365 days 02/04/2023 Active Mucinex DM 30-600 MG as directed Orally Active Breo Ellipta 100-25 MCG/INH as directed Inhalation Activ e glipiZIDE 5 MG 1 tablet 30 minutes before breakfast Orally Once a day for 30 day(s) Active Sertraline HCl 25 MG 1 tablet Orally Onc e a day for 30 day(s) Active metFORMIN HCl 500 MG 1 tablet with a alfonso l Orally Once a day for 30 day(s) Not-Taking Famotidine 40 MG 1 tablet at bedtime Orally Once a day for 30 day(s) Active Immunizations Vaccine Route Administration Date Status Comme nts Influenza Unknown 12/20/2022 Administered Social History Tobacco use other than smoking: Question Answer Notes Are you an other tobacco user? No AUDIT-C (Standard) Question Answer Notes Did you have a drink containing alcohol in the p ast year? No Points 0 Interpretation Negative Problems Problem Type SNOMED Code ICD Code Onset Dates Problem Status W/U Status Risk Notes Problem Acquired hammer toe of right foot (99149641960569 05) Other hammer toe(s) (acquired), right foot (M20.41) Active confirmed Problem Acquired hammer toe of left foot (79243937405206 03) Other hammer toe(s) (acquired), left foot (M20.42) Active confirmed Problem Type 2 diabetes mellitus with peripheral angiopathy (207600358) 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.51) Active confirmed Vital Signs Blood pressure diastolic 80 mm Hg 05/25/2024 Height 5 ft 6 in in 05/25/2024 Blood pressure systolic 120 mm Hg 05/25/2024 Weight 160 lbs 05/25/2024 BMI 25.82 kg/m2 05/25/2024 Procedures Procedure Date Ordered Date Performed Result Body Sit e 37646-FUUQLGZ NAIL, 1-5 06/13/2023 N/A 71346-YSGE SKIN LESIONS, OVER 4 06/13/2023 N/A W8167-DWNPHVGQ DYSTROPHIC NAILS ANY # 06/13/2023 N/A 91395-NNONDHI NAIL, 1-5 11/21/2023 N/A 06229-GIUD SKIN LESIONS, OVER 4 11/21/2023 N/A L6378-MXSKSAFB DYSTROPHIC NAILS ANY # 11/21/2023 N/A 42408-QWQIZKM NAIL, 1-5 02/24/2024 N/A 07058-HZOU SKIN LESIONS, OVER 4 02/24/2024 N/A J2089-YXRPUFXY DYSTROPHIC NAILS ANY # 02/24/2024 N/A 55423-BZACPEU NAIL, 1-5 05/25/2024 N/A 39707-NZED SKIN LESIONS, OVER 4 05/25/2024 N/A X6339-RDWZDIET DYSTROPHIC NAILS ANY # 05/25/2024 N/A Encounters Encounter [facility] Date [facility] [address] [facility]/13/2023 Fabricio Juan Type 2 diabetes mellitus with diabetic peripheral angiopathy without gangrene E11.51 ; Tinea unguium B35.1 ; Pain in right toe(s) M79.674 and Pain in left toe(s) M79.[address] [address] 11/21/2023 Fabricio Juan Type 2 diabetes mellitus with diabetic peripheral angiopathy without gangrene E11.51 ; Tinea unguium B35.1 ; Pain in right toe(s) M79.674 ; Pain in left toe(s) M79.675 and Xerosis of skin L85.[address] [address] 02/24/2024 Fabricio Juan Type 2 diabetes mellitus with diabetic peripheral angiopathy without gangrene E11.51 ; Tinea unguium B35.1 ; Pain in right toe(s) M79.674 ; Pain in left toe(s) M79.675 and Xerosis of skin L85.3 [facility] [address] [place] [address] 05/25/2024 Fabricio Yessica Type 2 diabetes mellitus with diabetic peripheral angiopathy without gangrene E11.51 ; Tinea unguium B35.1 ; Pain in right toe(s) M79.674 ; Pain in left toe(s) M79.675 ; Other hammer toe(s) (acquired), right foot M20.41 and Other hammer toe(s) (acquired), left foot M20.42 Assessments Encounter Date Diagnosis (ICD Code) Assessment Notes Treatment Notes Treatment Clinical Notes Section Notes 06/13/2023 Tinea unguium (ICD-10 - B35.1) 06/13/2023 Type 2 diabetes mellitus with diabetic peripheral angiopathy without gangrene (ICD-10 - E11.51) 11/21/2023 Tinea unguium (ICD-10 - B35.1) 11/21/2023 Type 2 diabetes mellitus with diabetic peripheral angiopathy without gangrene (ICD-10 - E11.51) 02/24/2024 Type 2 diabetes mellitus with diabetic peripheral angiopathy without gangrene (ICD-10 - E11.51) 02/24/2024 Tinea unguium (ICD-10 - B35.1) 05/25/2024 Tinea unguium (ICD-10 - B35.1) 05/25/2024 Type 2 diabetes mellitus with diabetic peripheral angiopathy without gangrene (ICD-10 - E11.51) 02/24/2024 Pain in right toe(s) (ICD-10 - M79.674) 05/25/2024 Pain in right toe(s) (ICD-10 - M79.674) 06/13/2023 Pain in right toe(s) (ICD-10 - M79.674) 11/21/2023 Pain in right toe(s) (ICD-10 - M79.674) 11/21/2023 Pain in left toe(s) (ICD-10 - M79.675) 06/13/2023 Pain in left toe(s) (ICD-10 - M79.675) 05/25/2024 Pain in left toe(s) (ICD-10 - M79.675) 02/24/2024 Pain in left toe(s) (ICD-10 - M79.675) 11/21/2023 Xerosis of skin (ICD-10 - L85.3) 02/24/2024 Xerosis of skin (ICD-10 - L85.3) 05/25/2024 Other hammer toe(s) (acquired), right foot (ICD-10 - M20.41) Patient Educated with: DIABETIC FOOT CARE INSTRUCTIONS.p df (DIABETIC FOOT CARE INSTRUCTIONS.p df) 05/25/2024 Other hammer toe(s) (acquired), left foot (ICD-10 - M20.42) 06/13/2023 Other 11/21/2023 Other 02/24/2024 Other Plan Of Treatment Pending Test Test Name Order Date X ray : Foot, left 3V 02/06/2022 94408-VIXOZFZ NAIL, 1-5 05/07/2022 61254-VIGGHFZ NAIL, 1-5 01/21/2022 07642-HTGUULC NAIL, 1-5 08/13/2022 36412-FLGCULN NAIL, -5 11/12/2022 11500-PTEJRYH NAIL, -5 02/04/2023 29943-BVMRZJX NAIL, -5 06/13/2023 52704-ZTTFEEJ NAIL, 1-5 11/21/2023 15774-HCBFEEB NAIL, 1-5 02/24/2024 77563-FBNTTRK NAIL, 1-5 05/25/2024 19029-Qmqp Destruction, -14 02/04/2023 91416-Zrog Destruction, -14 11/12/2022 08018-Trkr Destruction, -14 08/13/2022 60262-Qwxa Destruction, -14 01/21/2022 81394-Bmeu Destruction, -14 05/07/2022 12008-VEZS SKIN LESIONS, OVER 4 05/07/19 23 12461-TZWW SKIN LESIONS, OVER 4 01/22/20 86963-XNQR SKIN LESIONS, OVER 4 08/14/19 29462-XJPW SKIN LESIONS, OVER 4 07/25/20 23 00707-SGBL SKIN LESIONS, OVER 4 02/05/20 23 51321-YZLC SKIN LESIONS, OVER 4 11/21/19 24 30525-HUWF SKIN LESIONS, OVER 4 06/13/19 24 56739-WLSK SKIN LESIONS, OVER 4 05/25/19 25 99673-STTZ SKIN LESIONS, OVER 4 02/24/20 24 C3143-MILYPFFQ DYSTROPHIC NAILS ANY # P5335-MLFGSGRZ DYSTROPHIC NAILS ANY # N3904-OYUVRDFV DYSTROPHIC NAILS ANY # N5751-TVKZITQB DYSTROPHIC NAILS ANY # T0765-YXHTLJAY DYSTROPHIC NAILS ANY # N7103-LIBWACKU DYSTROPHIC NAILS ANY # J8890-GSXEXZRI DYSTROPHIC NAILS ANY # R4894-RDMXXQGH DYSTROPHIC NAILS ANY # B9487-PYWEBUUG DYSTROPHIC NAILS ANY # Next Appt Details Provider Name:Fabricio Juan , 08/24/2024 02:45:00 PM, [address] [place] [address], [address], Insurance Providers Payer Name Payer Address Payer Phone Subscriber Number Group Number Insured Name Patient Relationship to Insured Coverage Start Date Coverage End Date [employer] Preferred [address] [place] [address] [id number] Jhonny Shrestha Self - patient is the insured Medical (General) History Medical History History ICD Code asthma Diabetic type ll Lung disease Parkinsons disease Stroke Chicken pox COPD Colon CA Hypercholesterolemia Hypertension Surgical History Surgery Date(Month/Year) appendectomy gall bladder cataract surgery Hospitalization History Reason Date(Month/Year) Ultrasound both legs for veins 2021
--- OUTSIDE RECORDS SUMMARY | 2024-05-31 07:20 | XMS_ITS ---
Author Organization [facility] Address [address] [place] [address] Care Team Providers Care College Professor Name Role Phone Monica Darby Primary Care Provider UnavailJulio Cesar Ba Unavailable [phone] ALLERGIES No Known Allergies REASON FOR VISIT [...] 04/27/2024 Encounters Encounter Location Date Provider Diagnosis [facility] [address] [place] [address] 04/27/2024 Julio Cesar Chaparro Diarrhea, unspecifie d [...] Next Appt Details Follow Up: prn, Reason: Progress Notes * Examination Category Sub-Category Detail Notes General Examination GENERAL APPEARANCE: pleasant , well nourished, well developed, in no acute distress HEAD: EYES: sclera non-icteric EARS: NOSE: THROAT: NECK/THYROID: no cervical lymphade nopathy, neck supple HEART: S1, S2 normal CHEST: LUNGS: clear to auscultatio n bilaterally ABDOMEN: normal bowel sounds, no guarding or rigidity, no guarding or rigidity, no masses palpable, soft, nontender, nondistended NEUROLOGIC: alert and oriented SKIN: nonjaundiced, no spi aicha angiomata EXTREMITIES: no edema PERIPHERAL PULSES: BACK: BREASTS: MUSCULOSKELETAL: MALE GENITOURINARY: LYMPH NODES: RECTAL EXAM: FEMALE GENITOURINARY: ORAL CAVITY: mucosa moist
--- OUTSIDE RECORDS SUMMARY | 2024-05-31 07:20 | XMS_ITS | Clinical Summary ---
Author Organization [facility] Address [address] [place] [address] Care Team Providers Care Certified Neurodiagnostic Technologist Name Role Phone Unavailable Primary Care Provider Unavailabl e Social History Tobacco Use Types Packs/Day Years Used Date Smoking Tobacco: Never Assessed Sex and Gender Information Value Date Recorded Sex Assigned at Not on file Legal Sex Male 10:09 AM EST Gender Identity Not on file Sexual Orientation Not on file Plan of Treatment Health Maintenance Due Date Last Done Comments DTaP,Tdap,and Td Vaccines (1 - Tdap) 11/18/1958 Zoster Vaccines (1 of 2) 11/18/1989 Pneumococcal Vaccine: 50+ Ye ars (1 of 1 - PCV) [...]
--- OUTSIDE RECORDS SUMMARY | 2024-05-31 07:20 | XMS_ITS | Clinical Summary ---
Author Organization [facility] Address [address] [place] [address] Care Team Providers Care Dumper Mold Cleaner Name Role Phone Monica Darby MD Primary [...] DAILY 3 Active Lancets (OneTouch Delica Plus Srbtjc55D) misc USE TO CHECK SUGARS DAILY 3 [...] patient's age to complete this topic Insurance [facility] Care Teams Dumper Mold Cleaner Relationship Specialty Start Date End Date Monica Darby MD [address] [place] [address] PCP - General Internal Medicine 05/14/22
--- OUTSIDE RECORDS SUMMARY | 2024-05-31 07:20 | XMS_ITS ---
Author Organization [facility] Address [address] [facility] [place] [address] Care Team Providers Care Stove Refinisher Name Role Phone Monica Darby Primary Care Provider Unavailab aFbricio Granados Unavailable [phone] Allergies No Known Allergies REASON FOR VISIT [...] Ordered Date Performed Result Body Sit e 70137-EQGELUH NAIL, 1-5 11/21/2023 N/A 09657-NAAR SKIN LESIONS, OVER 4 11/21/2023 N/A I5392-NIUROUHM DYSTROPHIC NAILS ANY # 11/21/2023 N/A Encounters Encounter Location Date Provider Diagnosis [facility] [address] [address] 11/21/2023 Fabricio Juan Type 2 diabetes mellitus [...] days Pending Test Test Name Order Date 81802-WAGSDFS NAIL, 1-5 11/21/2023 76167-FMCY SKIN LESIONS, OVER 4 11/21/19 24 L0093-BFLMZJGX DYSTROPHIC NAILS ANY # Next Appt Details Follow Up: prn, Reason: Provider Name:aFbricio Juan , 08/24/2024 02:45:00 PM, [address] [place], [address], Procedure Notes * Category Sub-Category Detail Notes Keratoma Treatment Parring or Cutting o f Benign Hyperkeratotic Lesion(s) 80901 ( >4 Lesions) - The Benign hyperkeratotic [...] as necessary. Patient chooses, no pharmaceutical tx (01834) Nail Reduction Nail Reduction Trimming of dyst rophic nails performed to reduce/remove overall nail length and girth, by manual and electrical means with use of a nail nipper and/or dremel, to more viable healthy nail plate or bed tissue 6-10 (I7633-D1) Progress Notes * Jesenia CASEYOB:1940 (83 yo M)Acc No.[id number]:11/21/2023 Progress Note Patient:?Jhonny CASEY Provider:?Fabricio Juan DPM :1940???Age:83 Y???Sex:Male Romel e:11/21/2023 Address:[address] [place] [address] [id number] Pcp:Monica Darby Subjective: * Chief Complaints: * [...] tablet at bedtime Orally Once a day Mucinex DM 30-600 MG Tablet Extended Release 12 Hour as directed Orally Breo Ellipta 100-25 MCG/INH Aerosol Powder Breath Activated as directed Inhalation glipiZIDE 5 MG Tablet 1 tablet 30 minutes before breakfast Orally Once a day Sertraline HCl 25 MG Tablet 1 tablet Orally Once a day Clopidogrel Bisulfate 75 MG Tablet 1 tablet Orally Once a day Lisinopril 5 MG Tablet 1 tablet Orally Once a day Simvastatin 40 MG Tablet 1 tablet in the evening Orally Once a day Extra Depth Orthopedic Shoes, (1) Pair With (3) Pair Custom Heat Molded Multidensity Innersoles . Dx: NIDDM/PVD(E11.51), Hammertoe Foot Deformity(M20.41,M20.42), Preulcerative Skin Lesion(s)(L85.1) Wear Daily Taking Propranolol HCl 40 MG Tablet as directed Orally Taking immodium Taking Famotidine 40 MG Tablet 1 tablet at bedtime Orally Once a day Taking Mucinex DM 30-600 MG Tablet Extended Release 12 Hour as directed Orally Taking Breo Ellipta 100-25 MCG/INH Aerosol Powder Breath Activated as directed Inhalation Taking glipiZIDE 5 MG Tablet 1 tablet 30 minutes before breakfast Orally Once a day Taking Sertraline HCl 25 MG Tablet 1 tablet Orally Once a day Taking Clopidogrel Bisulfate 75 MG Tablet 1 tablet Orally Once a day Taking Lisinopril 5 MG Tablet 1 tablet Orally Once a day Taking Simvastatin 40 MG Tablet 1 tablet in the evening Orally Once a day Taking Extra Depth Orthopedic Shoes, (1) Pair With (3) Pair Custom Heat Molded Multidensity Innersoles . Dx: NIDDM/PVD(E11.51), Hammertoe Foot Deformity(M20.41,M20.42), Preulcerative Skin Lesion(s)(L85.1) Wear Daily Not-Taking/PRNmetFORMIN HCl 500 MG Tablet 1 tablet with a meal Orally Once a day Medication List reviewed and reconciled with the patientNot-Taking/PRN metFORMIN HCl 500 MG Tablet 1 tablet with a meal Orally Once a day Medication List reviewed and reconciled with the patient * Allergies:?N.K.D.A.yes[Aller gies Verified] Objective: * Vitals:?Ht: 5 ft 6 in, Wt: 1 70, BMI: 27.44, Shoe size: 9, BS: not taken, Wt-k.11 kg. * ???Past Orders: ???Lab:HEMOGLOBIN A1C (GLYCO HEMOGLOBIN) (Order Date - 08/20/2023) (Collection Date & Time - 08/20/2023 12:14 PM) ? Value Reference Range ?HEMOGLOBIN A1C % (HH) 6.6 * Examination: ???Vascular: ?DP PULSES (B):? 0/4, B/L.?PT PULSES (B):? 0/4, B/L.?CAPILLARY FILL TIME:? delayed, all digits, B/L.?TROPHIC CONDITION-TEXTURE/ELASTICITY/TURGOR/HAIR GROWTH (B):? decreased, B/L.?TEMPERTURE GRADIENT (C):? decreased, cool to cool, proximal to distal, B/L.?PIGMENTATION:? rubrous, B/L.?EDEMA (C):? 1/4, non-pitting, without aching pain, B/L, Leg(s), Ankle(s).?CLAUDICATION (C):?denies, B/L.?REST PAIN:?denies, B/L.?Nails: ?NAILS are:?Elongated, overgrown, dystrophic, [...] B/L.? Assessment: * Assessment: 1.?Tinea unguium - B35.1???2 .?Type 2 diabetes mellitus with diabetic peripheral angiopathy without gangrene - E11.51???3.?Pain in right toe(s) - M79.674???4.?Pain in left toe(s) - M79.675???5.?Xerosis of skin - L85.3???Specify :Acute problem, Uncomplicated (3),Rx Management (4)??? Plan: * Treatment: 2.?Type 2 diabetes mellitus with diabetic peripheral angiopathy without gangrene?Procedure: 02209-QHPW SKIN LESIONS, OVER 4 ?Procedure: S8736-APVTHTTB DYSTROPHIC NAILS ANY # 3.?Xerosis of skin? [...] as necessary. Patient chooses, no pharmaceutical tx (99486).?Keratoma Treatment:?Parring or Cutting of Benign Hyperkeratotic Lesion(s)?57222 ( >4 Lesions) - The Benign hyperkeratotic [...] DYSTROPHIC NAILS ANY #, Modifiers: XS , L189100 DEBRIDE NAIL, 1-5, Modifiers: XS 61854 TRIM SKIN LESIONS, OVER 4, Modifiers: XS [...] their pharmacy at the time of visit.? ??Screening/Special Tests:?Fall Risk?Screening:?No falls in the past year ?FALLS: Screening for Future Fall Risk?Have you had any falls with injury in the past year??No * Follow Up:?prn * Images: * Sign [...]
--- OUTSIDE RECORDS SUMMARY | 2024-05-31 07:20 | XMS_ITS | Patient Health Record ---
Author Organization [facility] Address [address] [place] [address] Care Team Providers Care Pulmonary Fellow Name Role Phone Monica Darby Primary Care Provider UnavailJulio Cesar Ba Unavailable [phone] ALLERGIES No Known Allergies REASON FOR REFERRAL Referring Provider First Name Monica Referring Provider Last Name Wilner Referring Provider Speciality Internal M edicine Referred Organization [facility] Referred Provider Julio Cesar Chaparro Referred Address [address] [place] [address],[address],[place], [place],[address],[place] Referred Provider Specialty Gastroentero logy Referral Priority [...] 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) Active confirmed 402375980 Problem Diarrhea, unspecified type (R19.7) Active confirmed 57590150 Problem 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) Active confirmed 166550756 VITAL SIGNS Blood pressure diastolic 00 mm Hg 04/27/2024 Height 69 in 04/27/2024 Blood pressure systolic 00 mm Hg 04/27/2024 Weight 166 lbs 04/27/2024 BMI 24.51 kg/m2 04/27/2024 Encounters Encounter Location Date Provider Diagnosis [facility] [address] [place] [address] 04/27/2024 Julio Cesar Chaparro Diarrhea, unspecifie d [...] MEDICARE PREFERRED [address] [place] [phone] [id number] LOPEZ CASEY Self - patient is the insured MEDICAL (GENERAL) HISTORY Medical History History ICD Code Strokes--sees Dr. Ornelas NIDDM Hypertension Asthma COPD Denies [place],renal disease Iron deficiency anemia-he wa s hospitalized [...]
--- OUTSIDE RECORDS SUMMARY | 2024-05-31 07:20 | XMS_ITS ---
Author Organization [facility] Address [address] [facility] [place] [address] Care Team Providers Care Environmental Science Professor Name Role Phone Monica Darby Primary Care Provider Unavailab Fabricio Granados Unavailable [phone] Allergies No Known Allergies REASON FOR VISIT At Risk Footcare, Painful Nail(s) aggrevated by shoes and causing difficulty standing/walking., ToeIrritation Medications Medication SIG (Take, Route, Frequency, Duration) Notes Start Date End Date Status Clopidogrel Bisulfate 75 MG 1 tablet Orally [...] e a day for 30 day(s) Active Propranolol HCl 40 MG as directed Orally Active immodium Active Mucinex DM 30-600 MG as directed Orally Active Breo Ellipta 100-25 MCG/INH as directed Inhalation Activ e Famotidine 40 MG 1 tablet at bedtime Orally Once a day for 30 day(s) Active Ammonium Lactate 12 % 1 application Exte rnally Twice a day for 30 days Active Extra Depth Orthopedic Shoes, (1) Pair With (3) Pair Custom Heat Molded Multidensity Innersoles Dx: NIDDM/PVD(E11.51), Hammertoe Foot Deformity(M20.41,M20.42) , Preulcerative Skin Lesion(s)(L85.1) Wear Daily for 365 days 02/04/2023 Active metFORMIN HCl 500 MG 1 tablet with a alfonso l Orally Once a day for 30 day(s) Not-Taking Social History Tobacco Use: Social History Observation Description Date Details (start date - stop date) Never Smoker NA - NA Tobacco use other than smoking: Question Answer Notes Are you an other tobacco user? No Tobacco Control (Standard) Question Answer Notes Tobacco use: Nonsmoker Additional Findings: Tobacco non-user Current no nsmoker AUDIT-C (Standard) Question Answer Notes Did you have a drink containing alcohol in the p ast year? No Points 0 Interpretation Negative Vital Signs Height 5 ft 6 in in 05/25/2024 Weight 160 lbs 05/25/2024 BMI 25.82 kg/m2 05/25/2024 Blood pressure systolic 120 mm Hg 05/25/19 25 Blood pressure diastolic 80 mm Hg 025 Procedures Procedure Date Ordered Date Performed Result Body Sit e 58175-TIQESKM NAIL, 1-5 05/25/2024 N/A 75373-MJGC SKIN LESIONS, OVER 4 05/25/2024 N/A T5563-JFKMYHFZ DYSTROPHIC NAILS ANY # 05/25/2024 N/A Encounters Encounter Location Date Provider Diagnosis [facility] [address] [place] [address] 05/25/2024 Fabricio Juan Type 2 diabetes mellitus with diabetic peripheral angiopathy without gangrene E11.51 ; Tinea unguium B35.1 ; Pain in right toe(s) M79.674 ; Pain in left toe(s) M79.675 ; Other hammer toe(s) (acquired), right foot M20.41 and Other hammer toe(s) (acquired), left foot M20.42 Assessments Encounter Date Diagnosis (ICD Code) Assessment Notes Treatment Notes Treatment Clinical Notes Section Notes 05/25/2024 Type 2 diabetes mellitus with diabetic peripheral angiopathy without gangrene (ICD-10 - E11.51) 05/25/2024 Tinea unguium (ICD-10 - B35.1) 05/25/2024 Pain in right toe(s) (ICD-10 - M79.674) 05/25/2024 Pain in left toe(s) (ICD-10 - M79.675) 05/25/2024 Other hammer toe(s) (acquired), right foot (ICD-10 - M20.41) Patient Educated with: DIABETIC FOOT CARE INSTRUCTIONS.p df (DIABETIC FOOT CARE INSTRUCTIONS.p df) 05/25/2024 Other hammer toe(s) (acquired), left foot (ICD-10 - M20.42) Plan Of Treatment Treatment Notes Assessment Notes Other hammer toe(s) (acquired), right fo ot Patient Educated with: DIABETIC FOOT CARE INSTRUCTIONS.pdf (DIABETIC FOOT CARE INSTRUCTIONS.pdf) Pending Test Test Name Order Date 73417-EITBNNR NAIL, 1-5 05/25/2024 58255-NDAD SKIN LESIONS, OVER 4 05/25/19 25 V5108-ACFCNBNY DYSTROPHIC NAILS ANY # Next Appt Details Follow Up: prn, Reason: Provider Name:Fabricio Juan , 08/24/2024 02:45:00 PM, [address] [place] [address], [id number], Procedure Notes * Category Sub-Category Detail Notes Keratoma Treatment Parring or Cutting o f Benign Hyperkeratotic Lesion(s) (-57) More than 4 Lesions - Due to the at risk nature of the patients medical condition as documented in the exam findings, performance of this keratoderma treatment is medically necessary as its management by an unskilled/untrained nonprofessional would put this patients foot and overall health at risk. Therefore, the benign hyperkeratotic lesions, ( 6 ) in total, locations as stated and described in the exam ( SUB MTH (s), 1, B/L , SUB MTH (s), 5, B/L ,Plantar, Heel(s), B/L ), were pared, and/or cut utilizing a sterile 15 blade, tissue nippers, and/or power dremel instrumentation by the physician of record - 79194, Q8 Debride Nails 1-5 Procedure: Due to the cli nical pathology outlined in the exam findings, performance of this nail treatment is medically necessary as its management by an unskilled/untrained nonprofessional would put this patients foot and overall health at risk. Therefore, debridement to affected nail(s), as described in exam ( TA, T5 ), was performed exclusively by the physician of record to reduce/remove overall nail length, girth, thickness, subungual debris, and necrotic tissue, by manual and/or electrical means through the use of a nail nipper and/or dremel stylegrinder, to a more viable healthy nail plate or bed tissue 5 nails or fewer in number. Silver nitrate was used for any petechial bleeding as necessary. Definitive antifungal treatment options, both pharmaceutical and surgical, have been reviewed and discussed with the patient. The patient solely prefers the use of intermittent/as needed professional debridement services for their nail condition and understands that additional periodic treatments may be required as necessary to maintain effective symptomatic relief - 71823 Nail Reduction Nail Reduction (-27) Trimming o f all dystrophic nails - Due to the at risk nature of the patients medical condition as documented in the exam findings, performance of this nail treatment is medically necessary as its management by an unskilled/untrained nonprofessional would put this patients foot and overall health at risk. Therefore, the dystrophic nails, in locations as stated and described in the exam ( T1, T2, T3, T4, T6, T7, T8, T9 ), were debrided by the phisician of record to reduce/remove overall nail length and girth, by manual and electrical means with use of a nail nipper and/or dremel, to more viable healthy nail plate or bed tissue - G0127, Q8 Progress Notes * Jesenia CASEYOB:1940 (83 yo M)Acc No.[id number]:05/25/2024 Progress Note Patient:?Jhonny CASEY Provider:?Fabricio Juan DPM :1940???Age:83 Y???Sex:Male Romel e:05/25/2024 Address:[address] [place] [address], [facility] Pcp:Monica Darby Subjective: * Chief Complaints: * ???At Risk FootcarePainful N ail(s) aggrevated by shoes and causing difficulty standing/walking.Toe Irritation * HPI: ???At Risk footcare:?Pt States Last PCP Visit:?Date?02/16/2024 States has an appt with PCP soon - mid Feb ???Toe pain:?Location:?B/L feet.?Duration:?several years.?Course:?worse.?Aggravated by:?shoes, any pressure.?Treatments:?change in shoes.? * ROS:?General/Constitutional:?Nausea?denies.?Vomiting?denies.?Hunger Thirst?denies.?Loss appetite?denies.?Chills?denies.?Fatigue?denies.?Fever?denies.?Night Sweats?denies.?Unexplained weight loss?denies.?Unexplained weight gain?denies.?HEENTM:?Dentures?admits.?Dizziness?denies.?Glasses/contacts?admits.?Retinopathy?den ies.?Blurred/double vision?denies.?TMJ?denies.?Discharge/drainage?denies.?Implants?denies.?Sore throat?denies.?Dental implants?denies.?Hard of hearing ?denies.?Difficulty chewing/swallowing/speaking?denies.?Nose bleeds?denies.?Sore mouth?denies.?Respiratory:?On O xygen?denies.?Pneumonia/pleurisy?denies.?Bronchitis?denies.?Emphysema?admits.?Co ughing?admits.?Cough blood?denies.?Shortness of breath?admits.?Wheezing?denies.?Cardiovascular:?Pacemaker?denies.?MVP?denies.?WPW?denies.?CHF?denies.?Heart attack?denies.?Septal defect?denies.?Rapid beat?denies.?Chest pain ?denies.?Atrial Fib.?denies.?Murmur/Palpitations?denies.?Gastrointestinal:?Hemorrhoids?denies.?Stomach/Abdominal pain?admits.?Dark blood stool?denies.?Irritable bowel ?denies.?Constipation?denies.?Diarrhea?admits.?Hematology:?Swelling?admits.?Clots?denies.?Varicose Veins?admits.?Bruising?denies.?Bleeding problem?denies.?Genitourinary:?Blood urine?denies.?Frequent/Painfu/urination/bladder control?denies.?Kidney stones?denies.?Infection (UTI)?denies.?Nephropathy?denies.?sex trans dis (STD)?denies.?Prostate?denies.?Musculoskeletal:?Hammertoes?admits.?Bunions?denies.?Back Pain?denies.?Muscle Cramps/ Resting?denies.?Muscle cramps / walking?denies.?Generalized aches and pains?denies.?Weakness?admits, that is generalized.?Integ.:?Marquez?denies.?Scars?denies.?Corns/calluses?admits.?Ingrown nails?admits.?Painful nails?admits.?Open Sores?denies.?Rashes?denies.?Neurologic:?Difficulty sleeping?denies.?Brain disorder?denies.?Numbness?denies.?Balance t rouble?denies.?Confusion?denies.?Fainting/blackouts?denies.?Tingling?denies.?Sebas mors?denies.? * Medical History:? * Surgical History:?appendecto my gall bladder cataract surgery * Hospitalization/Major Diagno stic Procedure:?Ultrasound both legs for veins 2021 * Family History:?Mother: dece ased.?Father: .?Siblings: Sister- Cancer, diagnosed with Other malignant neoplasm of unspecified site, Diabetic - NIDDM.? * Social History:?Tobacco Use:?Tobacco use other than smoking?Are you an other tobacco user??No ?Tobacco Control (Standard)?Tobacco use:?Nonsmoker ?Additional Findings: Tobacco non-user?Current nonsmoker ???Drugs/Alcohol:?Drugs?Have you used drugs other than those for medical reasons in the past 12 months??No ???Miscellaneous:?Caffeine: yes, frequency:, 1-2 cups per day. ?Children: yes. ?Exercise: yes, Car shows, cruise nights. ?Marital status: . ?Occupation: Retired. ???Drug/Alcohol:?AUDIT-C (Standard)?Did you have a drink containing alcohol in the past year??No ?Points?0 ?Interpretation?Negative * Medications:?TakingPropranol ol HCl 40 MG Tablet [...] Foot Deformity(M20.41,M20.42), Preulcerative Skin Lesion(s)(L85.1) Wear Daily Ammonium Lactate 12 % Cream 1 application Externally Twice a day Taking Propranolol HCl 40 MG Tablet as [...] Deformity(M20.41,M20.42), Preulcerative Skin Lesion(s)(L85.1) Wear Daily Taking Ammonium Lactate 12 % Cream 1 application Externally Twice a day Not-Taking/PRNmetFORMIN HCl 500 MG Tablet 1 tablet with a meal Orally Once a day Medication List reviewed and reconciled with the patientNot-Taking/PRN metFORMIN HCl 500 MG Tablet 1 tablet with a meal Orally Once a day Medication List reviewed and reconciled with the patient * Allergies:?N.K.D.A.yes[Aller gies Verified] Objective: * Vitals:?Ht: 5 ft 6 in, Wt:16 0, BMI: 25.82, Shoe size:9, BP:120/80mm Hg, Wt-k.58 kg. * ???Past Orders: ???Lab:HEMOGLOBIN A1C (GLYCO HEMOGLOBIN) (Order Date - 08/20/2023) (Collection Date & Time - 08/20/2023 12:14 PM) ? Value Reference Range ?HEMOGLOBIN A1C % (HH) 6.6 * Examination: ???Ophthalmology Referral: ?DIABETES EYE EXAM?Vascular: ?DP PULSES (B):? 0/4, B/L.?PT PULSES (B):? 0/4, B/L.?CAPILLARY FILL TIME:? delayed, all digits, B/L.?TROPHIC CONDITION-TEXTURE/ELASTICITY/TURGOR/HAIR GROWTH (B):? decreased, fragile, thin, shiny skin, with sparse to absent hair growth, B/L.?TEMPERTURE GRADIENT (C):? decreased, cool to cool, proximal to distal, B/L.?PIGMENTATION:?mottled, B/L.?EDEMA (C):? 1/4, non-pitting, without aching pain, B/L, Leg(s), Ankle(s).?CLAUDICATION (C):?denies, B/L.?REST PAIN:?denies, B/L.?VARICOSITIES:?present, moderate, nonpainful, B/L.?Nails: ?NAILS are:?Elongated, overgrown, dystrophic, lytic, greater than 3mm thick, discolored and friable with crumbly malodorous subungual debris, with pain on palpation, TA, T5, all other nails not described with characteristics as possessing mycosis are elongated, overgrown, and dystrophic ( T1, T2, T3, T4, T6, T7, T8, T9?).?Dermatologic: ?SKIN FINDINGS:? Skin exam reveals Keratotic lesion(s) located at, SUB MTH (s), 1, B/L , SUB MTH (s), 5, B/L ,Plantar, Heel(s), B/L.?Orthopedic: ?MUSCLE STRENGTH:?5/5 all groups in a symmetrical fashion , B/L.?GAIT ABNORMALITY:? appropulsive, cane-assisted.?FOOT MORPHOLOGY:?Pes Planus structure, No Charcot collapse/destruction noted at MTJ.?DIGITAL DEFORMITIES:?Digital contracture, PIPJ, 2-5 B/L, incompl-reducible to push-up test, no over, nor underlapping , with evidence of shoe producing skin irritation.?FOOTWEAR:?worn, OT were inspected and noted to be severely worn , in poor condition not giving proper support at the present time , shoe gear properties exacerbate patients foot/toe deformity.?Neurological: ?SENSORY:?Neurological exam reveals intact sensorium, pain sensation normal, vibration sensation intact, pinprick sensation is normal in the lower extremities, 5.07 monofilament test performed at plantar aspects of 5 varied sites per foot shows sensation, normal, B/L, Pt denies, anesthesia, burning, paresthesia, tingling, B/L.?General Examination: ?GENERAL APPEARANCE:?Reveals a pleasant, alert, well nourished, well- developed, well hydrated individual, who demonstrates proper attention to hygiene/body habitus, and is in no acute distress, Pt serves as own historian for office visit today.?ORIENTED:?person, place, and time.?FOOT EXAM:?Footwear Evaluation? Assessment: * Assessment: 1.?Tinea unguium - B35.1???2 .?Type 2 diabetes mellitus with diabetic peripheral angiopathy without gangrene - E11.51 (Primary)???3.?Pain in right toe(s) - M79.674???4.?Pain in left toe(s) - M79.675???5.?Other hammer toe(s) (acquired), right foot - M20.41???Specify :Chronic problem, Worse (4)???6.?Other hammer toe(s) (acquired), left foot - M20.42???Specify :Chronic problem, Worse (4)??? Plan: * Treatment: 2.?Tinea unguium?Procedure: 06462-SKNXISR NAIL, 1-5 3.?Other hammer toe(s) (acqu ired), right foot? Notes: Patient Educated with: DIABETIC FOOT CARE INSTRUCTIONS.pdf (DIABETIC FOOT CARE INSTRUCTIONS.pdf)?? * Procedures:?Debride Nails 1-5:?Procedure:?Due to the clinical pathology outlined in the exam findings, performance of this nail treatment is medically necessary as its management by an unskilled/untrained nonprofessional would put this patients foot and overall health at risk. Therefore, debridement to affected nail(s), as described in exam ( TA, T5 ), was performed exclusively by the physician of record to reduce/remove overall nail length, girth, thickness, subungual debris, and necrotic tissue, by manual and/or electrical means through the use of a nail nipper and/or dremel stylegrinder, to a more viable healthy nail plate or bed tissue 5 nails or fewer in number. Silver nitrate was used for any petechial bleeding as necessary. Definitive antifungal treatment options, both pharmaceutical and surgical, have been reviewed and discussed with the patient. The patient solely prefers the use of intermittent/as needed professional debridement services for their nail condition and understands that additional periodic treatments may be required as necessary to maintain effective symptomatic relief - 53943.?Keratoma Treatment:?Parring or Cutting of Benign Hyperkeratotic Lesion(s)?(-57) More than 4 Lesions - Due to the at risk nature of the patients medical condition as documented in the exam findings, performance of this keratoderma treatment is medically necessary as its management by an unskilled/untrained nonprofessional would put this patients foot and overall health at risk. Therefore, the benign hyperkeratotic lesions, ( 6 ) in total, locations as stated and described in the exam (?SUB MTH (s),?1,?B/L?,?SUB MTH (s),?5,?B/L?,Plantar,?Heel(s),?B/L?), were pared, and/or cut utilizing a sterile 15 blade, tissue nippers, and/or power dremel instrumentation by the physician of record - 70878, Q8.?Nail Reduction:?Nail Reduction?(-27) Trimming of all dystrophic nails - Due to the at risk nature of the patients medical condition as documented in the exam findings, performance of this nail treatment is medically necessary as its management by an unskilled/untrained nonprofessional would put this patients foot and overall health at risk. Therefore, the dystrophic nails, in locations as stated and described in the exam (?T1, T2, T3, T4, T6, T7, T8, T9?), were debrided by the phisician of record to reduce/remove overall nail length and girth, by manual and electrical means with use of a nail nipper and/or dremel, to more viable healthy nail plate or bed tissue - G0127, Q8.? * Procedure Codes:?G0127 TIFFANIE ING DYSTROPHIC NAILS ANY #, Modifiers: XS , [id number] DEBRIDE NAIL, 1-5, Modifiers: XS 14023 TRIM SKIN LESIONS, OVER 4, Modifiers: XS [...] have encouraged the patient to call the office.?Digital Surgery:?Digital surgery was discussed with the patient, We elected to try conservative treatment at the present time, due to the patients medical history and increased asssociated post-operative risks.?Digital Treatment:?HT- I explained to the patient the possible etiologies of Hammertoes, including genetics/foot type/shoegear/activity level/exercise routine and the risks/benefits of all the different treatment options for their pain including: No treatment at all, Rest, Ice, New/supportive/wider/deeper Shoegear, Digital Padding/Strapping/Taping/Bracing/Gel protective sleeves, Foot/Ankle AFO Bracing, Stretching exercises, Deep Tissue Massage, Arch support/shoe inserts with splay metatarsal padding, and Custom orthoses. I insisted that any digital devices be removed daily and not worn overnight for safety. The patient is to carefully examine the toes daily for any skin irritation while using any splinting or padding device. The advantages and disadvantages of each option were discussed and the patients questions re: shoegear, padding, custom vs prefabricated inserts, activity level, and consistency in home treatment regimens for optimal success were answered to their verbally confirmed satisfaction.?Shoe Gear Counseling:?SHOE Rx - The patient was counseled in great detail on their muscoloskeletal foot and toe deformities which coincided with the dermatological presentations visualized on exam. We discussed how their deformities put the integrity of their feet at risk for potential pedal complications which makes the accomidative diabetic shoes and cutomizable inserts medically necessary. We discussed the different shoe and insert treatment types and options, as well as the important advantages for adhering to regularly wearing these accomidative devices daily. The patient was made aware of the fact that a failure to abide by these recommedations may be deleterious to their foot health as they are able to prevent many pedal complications such as skin irritation, skin ulceration, infection, and even loss of toe/foot/leg/or life. Time was also spent with the patient dispensing and discussing proper diabetic footcare techniques including daily skin moisturization, daily foot inspection for any interruption in skin integrity including open lesions, or sign of infection such as redness/malodor/drainage/swelling. Also discussed and recommended were procedures regarding daily shoe inspection for the presence of internal foreign bodies as well as any visualized irregular shoe or insert wear. Patient questions re: shoes, inserts, and self foot inspections were answered to their satisfaction as the patient verbally confirmed a full understanding of the above information, Patient DEFERS recommended Extra Depth Orthopedic pressure-accommodative shoes against medical advice.? ??Screening/Special Tests:?Fall Risk?Screening:?No falls in the past year ?FALLS: Screening for Future Fall Risk?Have you had any falls with injury in the past year??No * Follow Up:?prn * Images: * Sign off status: Completed true * Provider:?Fabricio Juan DPM Date:?2024 Generated for Danilo moreno/Kofi/eTranpina on:?05/31/2024 07:20 AM EST History and Physical Notes * HPI (History of Present Illness) Category Sub-Category Detail Notes Category Not es Toe pain Location: B/L feet Duration: several years Course: worse Aggravated by: shoes, any pressure Treatments: change in shoes At Risk footcare Pt States Last PCP Visit: Date: 02/15 States has an appt with PCP soon - mid May Examination Category Sub-Category Detail Notes Category Not es Neurological SENSORY: Neurological exa m reveals intact sensorium, pain sensation normal, vibration sensation intact, pinprick sensation is normal in the lower extremities, 5.07 monofilament test performed at plantar aspects of 5 varied sites per foot shows sensation, normal, B/L, Pt denies, anesthesia, burning, paresthesia, tingling, B/L Dermatologic SKIN FINDINGS: Skin exam reveal s Keratotic lesion(s) located at, SUB MTH (s), 1, B/L , SUB MTH (s), 5, B/L ,Plantar, Heel(s), B/L Orthopedic GAIT ABNORMALITY: appropulsive, cane-assi sted FOOT MORPHOLOGY: Pes Planus structure , No Charcot collapse/destruction noted at MTJ FOOTWEAR: worn, OT were inspec tevin and noted to be severely worn , in poor condition not giving proper support at the present time , shoe gear properties exacerbate patients foot/toe deformity DIGITAL DEFORMITIES: Digital contracture , PIPJ, 2-5 B/L, incompl-reducible to push-up test, no over, nor underlapping , with evidence of shoe producing skin irritation MUSCLE STRENGTH: 5/5 all groups in a symmetrical fashion , B/L General Examination GENERAL APPEARANCE: Reveals a pleasant, alert, well nourished, well-developed, well hydrated individual, who demonstrates proper attention to hygiene/body habitus, and is in no acute distress, Pt serves as own historian for office visit today FOOT EXAM: Lower Extremity Neurological Exa m performed:: Yes Visual exam of foot performed:: Yes Date: 05/25/2024 ORIENTED: person, place, and t viktoriya Footwear Evaluation Footwear Evaluation performe d:: Yes Ophthalmology Referral DIABETES EYE EXAM Procedure Perform ed:: Yes ?Date of Exam Performed: 04/28/2024 Diabetic Retinopathy Screening:: Yes Retinal Screening Performed:: Yes Findings of Diabetic Eye Exam:: no retin opathy Vascular DP PULSES (B): 0/4, B/L PT PULSES (B): 0/4, B/L CAPILLARY FILL TIME: delayed, all digits , B/L TEMPERTURE GRADIENT (C): decreased, cool to cool, proximal to distal, B/L TROPHIC CONDITION-TEXTURE/ELASTICITY/TURGOR/HAIR GROWTH (B): decreased, fragile, thin, shiny skin, wi th sparse to absent hair growth, B/L EDEMA (C): 1/4, non-pitting, wi thout aching pain, B/L, Leg(s), Ankle(s) VARICOSITIES: present, moderate, n onpainful, B/L CLAUDICATION (C): denies, B/L REST PAIN: denies, B/L PIGMENTATION: mottled, B/L Nails NAILS are: Elongated, overg rown, dystrophic, lytic, greater than 3mm thick, discolored and friable with crumbly malodorous subungual debris, with pain on palpation, TA, T5, all other nails not described with characteristics as possessing mycosis are elongated, overgrown, and dystrophic ( T1, T2, T3, T4, T6, T7, T8, T9 )
[2024-05-31 07:51] LABS: Estimated Average Glucose 166 mg/dL; Hemoglobin A1C 184.0474 umol/L; Hemoglobin A1c % 7.4 % (<6.0); Total Hemoglobin (HGBA1C) 3235.0065 umol/L
[2024-05-31 08:11] LABS: Alanine Aminotransferase 13 U/L (0-40); Albumin Level 4.1 g/dL (3.5-5.0); Alkaline Phosphatase 83 U/L (39-117); Anion Gap 15 (12-20); Aspartate Amino Transferase 20 U/L (5-37); Bilirubin Total 0.4 mg/dL (0.0-1.0); Blood Urea Nitrogen 38 mg/dL (9-16); Calcium 9.7 mg/dL (8.4-10.2); Carbon Dioxide 23 mmol/L (22-29); Chloride 108 mmol/L (96-108); Estimated Glomerular Filt Rate 38; Glucose Random 213 mg/dL (60-115); Potassium 5.1 mmol/L (3.3-5.1); Sodium 141 mmol/L (135-145); Total Protein 7.3 g/dL (6.5-8.0)
== END 2024-05-31 07:18 | disposition home or self-care (01) ==
LOC: HO.LAB 07:17
PROVIDERS: PCP Internal Medicine; Visit Provider Internal Medicine
DX: E11.40 Type 2 diabetes mellitus with diabetic neuropathy, unspecified (principal); I12.9 Hypertensive chronic kidney disease with stage 1 through stage 4 chronic kidney disease, or unspecified chronic kidney disease; R13.10 Dysphagia, unspecified; R19.7 Diarrhea, unspecified
CPT/HCPCS: 36415; 80053; 83036

== ENCOUNTER 2024-07-06 13:55 | Outpatient (AMB) | payer MEDICARE, SELFPAY ==
--- NOTE | 2024-07-06 13:57 | MHC.OFFVIS ---
Vital Signs 07/06/24 14:12 Height 5 ft 9 in Weight 165 lb 5.547 oz BMI 24.4 BP 116/72 Blood Pressure Location Lt brachial Position Sitting Pulse 70 Intake Visit Reasons: 1 year follow-up after holter Intake Note: 1 year follow-up with ekg feeling good Book Author Required: No Allergies No Known Allergies [No Known Allergies*] Allergy (Verified 05/11/24 13:08) Medication List - Last Reconciled 07/06/24 by Jorge Ornelas MD albuterol sulfate 90 mcg/actuation (ProAir HFA) 2 puffs inhalation Q4-6H PRN 60 days Breo Ellipta 100-25 mcg/dose (fluticasone furoate-vilanterol) 1 inh inhalation DAILY 90 days NS calcium carbonate (Calcium 600) 600 mg PO DAILY cetirizine 10 mg PO DAILY cholecalciferol (vitamin D3) 50 mcg PO DAILY dorzolamide 2% 1 drp ophthalmic (eye) Q12H famotidine 40 mg PO DAILY PRN finasteride 5 mg PO DAILY 90 days fluticasone propionate 50 mcg/actuation (Flonase Allergy Relief) 1 spray intranasal BID PRN glipizide ER 5 mg PO DAILY ketorolac 0.5% 1 drp ophthalmic-Right TID lisinopril-hydrochlorothiazide 10-12.5 mg 1 tab PO DAILY loperamide 2 mg PO DAILY PRN pantoprazole 40 mg PO DAILY prednisolone acetate 1% 1 drp ophthalmic (eye) TID simvastatin 40 mg PO DAILY HPI Comments Details: Julio Cesar comes for follow-up more than a year. He has had no new cardiac symptoms. Denies any lightheadedness, syncope. Denies any fatigue. Currently not on any rate lowering medication including no eyedrops. No fatigue, shortness of breath. No exertional chest pain. Remains active with his day-to-day functionality. [facility] Medical History Cough Hypersomnia Stroke COPD exacerbation COPD (chronic obstructive pulmonary disease) Allergic rhinitis Surgical History Hx of cataract surgery (~09/2023) S/P tonsillectomy and adenoidectomy Hx of cholecystectomy History of appendectomy Family History Mother No problems noted. Father Heart disease Social History Alcohol intake: former Patient Tobacco Use Status: Former Tobacco user Years Smoked: 40 +/- Review of Systems Const Denies chills, Denies fatigue, Denies fever(s), Denies frequent falls, Denies weakness, Denies weight gain and Denies weight loss ENT Denies dizziness Card Denies chest pain, Denies leg edema, Denies lightheadedness, Denies palpitations, Denies dyspnea, Denies dyspnea on exertion, Denies orthopnea and Denies other (loss of consciousness) Resp Denies cough, Denies dyspnea and Denies dyspnea on exertion GI Denies hematochezia and Denies change in stool character Musc Denies abnormal gait, Denies muscle weakness, Denies numbness, Denies radiating pain into limb and Denies tingling Neuro Denies Abnormal speech present, Denies abnormal gait, Denies dizziness, Denies frequent falls, Denies numbness, Denies tingling and Denies weakness Endo Denies fatigue and Denies palpitations Physical Exam Vital Signs: Last Vital Signs Pulse 70 07/06/24 14:12 BP 116/72 07/06/24 14:12 BMI result Body Mass Index 24.4 Const General: cooperative, comfortable, no acute distress, alert and awake Nutritional Appearance: average body habitus Orientation/consciousness: patient oriented x3 Limitations: no limitations HEENT Head: Yes normocephalic and Yes atraumatic Neck Neck: Yes trachea midline, Yes supple and Yes no JVD Resp Effort & Inspection: normal respiratory effort Auscultation: clear to auscultation bilaterally and diminished lung sounds Cardio Jugular venous distension: no JVD Palpation: normal PMI Rate: regular rate Rhythm: regular rhythm Heart sounds: S1 normal heart sound present, S2 normal heart sound present, no click, no gallops, no murmurs and no rubs GI Auscultation: normal bowel sounds Skin General skin exam: no rashes or lesions noted Neuro General: patient oriented x3 and no focal motor deficits Speech: No Abnormal speech present Extrem General: Yes no clubbing, cyanosis or edema Office Procedures EKG Details: EKG shows normal sinus rhythm with first-degree AV block with right bundle-branch block and left anterior fascicular block consistent with bifascicular block 35457-Vkpiqgtjmozukrqmn, Complete Assessment & Plan Assessment & Plan (1) Sinoatrial node dysfunction: Code(s): I49.5 - Sick sinus syndrome Category: Medical Plan: Sinoatrial suhail dysfunction without any symptoms and any signs of significant bradycardia. Continue to avoid rate lowering medications in the future. Advised to call me with any new symptoms. No indication for pacing therapy (2) Bifascicular block: Code(s): I45.2 - Bifascicular block Category: Medical Plan: Bifascicular block without any symptoms again no indication for pacing therapy. Continue monitor by EKG on annual basis. This can be done through your office. (3) PAD (peripheral artery disease): Code(s): I73.9 - Peripheral vascular disease, unspecified Category: Medical Plan: Has a history of PID, currently being followed by vascular. Should be on antiplatelet therapy. Continue aggressive risk factor modification. Ideally LDL goal should be less than 70 mg/dL. Continue aggressive blood pressure control. Will follow up in the clinic if need be. Thank you for allowing me to partake in his care Coding Level of Care Code Est Pt Level 4 (74592) Complex EM visit Add On G2211 Diagnoses Sinoatrial node dysfunction I49.5 Bifascicular block I45.2 PAD (peripheral artery disease) I73.9 CPT Codes EKG - CPT: 18023-Cpdfeglpwutawzcqx, Complete ([id number])
[2024-07-06 14:12] VITALS: BP 116/72; PULSE 70; BMI 24.4
--- OUTSIDE RECORDS SUMMARY | 2024-07-06 16:36 | XMS_ITS ---
Author Organization [facility] Address [address] [place] [address] Care Team Providers Care Sliver Former Name Role Phone Monica Darby Primary Care Provider Unavailab Fabricio Granados Unavailable [phone] Allergies No Known Allergies REASON FOR VISIT [...] Ordered Date Performed Result Body Sit e 77561-PHSEUBF NAIL, 1-5 11/21/2023 N/A 52772-PALH SKIN LESIONS, OVER 4 11/21/2023 N/A S8496-YHHIEXVZ DYSTROPHIC NAILS ANY # 11/21/2023 N/A Encounters Encounter Location Date Provider Diagnosis [facility] [address] [address] 11/21/2023 Fabricio Juan Type 2 diabetes mellitus [...] days Pending Test Test Name Order Date 15619-OQFESHC NAIL, 1-5 11/21/2023 13663-ABDX SKIN LESIONS, OVER 4 11/21/19 24 L1439-PPUMCTSI DYSTROPHIC NAILS ANY # Next Appt Details Follow Up: prn, Reason: Provider Name:Fabricio Juan , 08/24/2024 02:45:00 PM, [address] [place], [address], Procedure Notes * Category Sub-Category Detail Notes Keratoma Treatment Parring or Cutting o f Benign Hyperkeratotic Lesion(s) 58580 ( >4 Lesions) - The Benign hyperkeratotic [...] as necessary. Patient chooses, no pharmaceutical tx (54098) Nail Reduction Nail Reduction Trimming of dyst rophic nails performed to reduce/remove overall nail length and girth, by manual and electrical means with use of a nail nipper and/or dremel, to more viable healthy nail plate or bed tissue 6-10 (L5149-C3) Progress Notes * Jesenia CASEYOB:1940 (83 yo M)Acc No.[id number]:11/21/2023 Progress Note Patient:?Jhonny CASEY Provider:?Fabricio Juan DPM :1940???Age:83 Y???Sex:Male Romel e:11/21/2023 Address:[address] [place] [address] [id number] Pcp:Monica Darby Subjective: * Chief Complaints: * [...] mellitus with diabetic peripheral angiopathy without gangrene?Procedure: 11502-UQAM SKIN LESIONS, OVER 4 ?Procedure: W4918-XWRYPCCY DYSTROPHIC NAILS ANY # 3.?Xerosis of skin? [...] as necessary. Patient chooses, no pharmaceutical tx (58584).?Keratoma Treatment:?Parring or Cutting of Benign Hyperkeratotic Lesion(s)?46999 ( >4 Lesions) - The Benign hyperkeratotic [...] DYSTROPHIC NAILS ANY #, Modifiers: XS , [id number] DEBRIDE NAIL, 1-5, Modifiers: XS 88423 TRIM SKIN LESIONS, OVER 4, Modifiers: XS [...] Juan DPM Date:?2023 Generated for Danilo moreno/Kofi/Adrian on:?07/06/2024 04:36 PM EDT History and Physical Notes * HPI (History [...]
--- OUTSIDE RECORDS SUMMARY | 2024-07-06 16:36 | XMS_ITS ---
Author Organization [facility] Address [address] [place] [address] Care Team Providers Care Chiropractic Doctor Name Role Phone Monica Darby Primary Care Provider UnavailJulio Cesar Ba Unavailable [phone] Allergies No Known Allergies REASON FOR VISIT patient presents today for diarrhea Medications Medication SIG (Take, Route, Frequency, Duration) [...] capsule Orally Onc e a day Not-Taking Social History Tobacco Use: Social History Observation Description Date Details (start date - stop date) Former Smoker NA - NA Tobacco Use/Smoking Question Answer Notes Patient is a former smoker How long has it been since you last smoked? 1-5 years Alcohol Screen Question Answer Notes Did you have a drink containing alcohol in the p ast year? No Points 0 Interpretation Negative Section Notes: Nonsmoker; no sig alcohol Vital Signs Blood pressure systolic 00 mm Hg 04/27/19 25 Blood pressure diastolic 00 mm Hg 025 Height 69 in 04/27/2024 Weight 166 lbs 04/27/2024 BMI 24.51 kg/m2 04/27/2024 Encounters Encounter Location Date Provider Diagnosis [facility] [address] [place] [address] 04/27/2024 Julio Cesar Chaparro Diarrhea, unspecifie d type R19.7 and Iron deficiency anemia due to chronic blood loss D50.0 Assessments Encounter Date Diagnosis (ICD Code) Assessment Notes Treatment Notes Treatment Clinical Notes Section Notes 04/27/2024 Diarrhea, unspecified type (ICD-10 - R19.7) Continue the Loperamide as needed for any diarrhea. Call me things worsen. Overall, Lopez appears to be doing well from a GI standpoint. He is not having any new nor worrisome GI complaints. We did review the history of his intermittent diarrhea but at this time it does not seem to be particularly problematic for him and is not associated with any worrisome symptoms such as bleeding or weight loss. His good clinical appearance and laboratories from just the past few months are reassuring. We did review that his previous anemia has remained stable as well. Given his age, previous negative GI procedures, his good clinical appearance, and his clinical history, I advised him that I do not think he needs any further evaluation from a GI standpoint and specifically does not need a colonoscopy at this time. I did advise him to continue to use loperamide as needed. However, I did advise him to certainly call me if diarrhea becomes problematic and persistent, or becomes associated with any other symptoms such as bleeding or weight loss. Lopez understood this and was very comfortable with this plan. Thank you again for allowing me to have participated in Lopez's care. I shall continue to keep advised of his progress as needed. Please do not hesitate to contact me if I can be of any further assistance in the future. 04/27/2024 Iron deficiency anemia due to chronic blood loss (ICD-10 - D50.0) Continue the Pantoprazole for your stomach Overall, Lopez appears to be doing well from a GI standpoint. He is not having any new nor worrisome GI complaints. We did review the history of his intermittent diarrhea but at this time it does not seem to be particularly problematic for him and is not associated with any worrisome symptoms such as bleeding or weight loss. His good clinical appearance and laboratories from just the past few months are reassuring. We did review that his previous anemia has remained stable as well. Given his age, previous negative GI procedures, his good clinical appearance, and his clinical history, I advised him that I do not think he needs any further evaluation from a GI standpoint and specifically does not need a colonoscopy at this time. I did advise him to continue to use loperamide as needed. However, I did advise him to certainly call me if diarrhea becomes problematic and persistent, or becomes associated with any other symptoms such as bleeding or weight loss. Lopez understood this and was very comfortable with this plan. Thank you again for allowing me to have participated in Lopez's care. I shall continue to keep advised of his progress as needed. Please do not hesitate to contact me if I can be of any further assistance in the future. Plan Of Treatment Treatment Notes Assessment Notes Diarrhea, unspecified type Continue the Loperamide as needed for any diarrhea. Call me things worsen. Iron deficiency anemia due t o chronic blood loss Continue the Pantoprazole for your stoma ch Next Appt Details Follow Up: prn, Reason: Progress Notes * RONALD CASEYOB:1940 (83 yo M)Acc No.[id number]:04/27/2024 Progress Notes Patient:?LOPEZ CASEY Provider:?Julio Cesar Chaparro MD :1940???Age:83 Y???Sex:Male Romel e:04/27/2024 Address:[address] [place], [place] [id number] Pcp:Monica Darby Subjective: * Chief Complaints: * ???Patient presents today fo r diarrhea * HPI: ???incontinence:? I saw Lopez in consultation today in regard to some intermittent diarrhea and a previous anemia. ?I last saw Lopez in February of 2020. At that time we had reviewed his history of some intermittent diarrhea and previous anemia, although at that time his blood counts had been remaining quite stable and I did not think he needed any GI procedures given the negative studies in 2019. Since his office visit in 2019 he reports that he has been doing fairly well from a GI standpoint but still has intermittent episodes of diarrhea. He reports that recently he has been using loperamide with good relief. He has not been needing that daily but when he does take the loperamide it does work well for him. He denies any associated signs of bleeding, abdominal pain, fevers, jaundice, nor any unintentional weight loss. He describes a good appetite and denies any significant issues with heartburn nor dysphagia. ?His laboratories from last year revealed normal LFTs and a hemoglobin of 13.4 with a normal MCV. He did have a Barium swallow in April of 2023 describing evidence of some reflux, a hiatal hernia, and some esophageal dysmotility. * ROS:?General/Constitutional:?Change in appetite?denies.?Chills?denies.?Fatigue?denies.?Ophthalmologic:?Comments?all negative.?ENT:?Comments?all negative.?Respiratory:?hemoptysis?denies.?Cough?denies.?Cardiovascular:?Chest pain?denies.?Orthopnea?denies.?Gastrointestinal:?Comments?See HPI for details.?Genitourinary:?Hematuria?denies.?Dysuria?denies.?Musculoskeletal:?Painful joints?denies.?Weakness?denies.?Skin:?Itching?denies.?Rash?denies.?Neurologic:?Headache?denies.?Seizures?denies.?Psychiatric:?Comments?all negative.? * Medical History:? * Surgical History:?Appendecto my Cholecystectomy Tonsils and Adenoids * Hospitalization/Major Diagno stic Procedure:?No Hospitalization History. * Family History:?Father: dece ased, diagnosed with Heart disease.?Mother: .? No known fam hx of colon cancer. * Social History:?Tobacco Use:?Tobacco Use/Smoking?Patient is a?former smoker,?How long has it been since you last smoked??1-5 years.?Drugs/Alcohol:?Alcohol Screen?Did you have a drink containing alcohol in the past year??No,?Points?0,?Interpretation?Negative.?Miscellaneous:?Marital status: . Occupation: Retired. ???Nonsmoker; no sig alcohol. * Medications:?TakingCalcium + D Loperamide HCl Finasteride 5 MG Tablet 1 tablet Orally Once a dayProAir HFA Pepcid 40 MG Tablet 1 tablet at bedtime as needed Orally Once a dayLisinopril-hydroCHLOROthiazide 20-12.5 MG Tablet 1 tablet Orally Once a dayFlonase Simvastatin 40 MG Tablet 1 tablet in the evening Orally Once a dayglipiZIDE 5 MG Tablet 1 tablet Orally Once a dayBreo Ellipta 100-25 MCG/INH Aerosol Powder Breath Activated 1 puff Inhalation Once a dayMucinex DM 30-600 MG Tablet Extended Release 12 Hour 1 tablet as needed Orally every 12 hrsImodium A-D 2 MG Tablet 1 tablet as needed Orally prn, Notes: prnZyrTEC Allergy 10 MG Tablet 1 tablet Orally Once a dayFamotidine 40 MG Tablet 1 tablet Orally Once a dayTaking Calcium + D Taking Loperamide HCl Taking Finasteride 5 MG Tablet 1 tablet Orally Once a dayTaking ProAir HFA Taking Pepcid 40 MG Tablet 1 tablet at bedtime as needed Orally Once a dayTaking Lisinopril-hydroCHLOROthiazide 20-12.5 MG Tablet 1 tablet Orally Once a dayTaking Flonase Taking Simvastatin 40 MG Tablet 1 tablet in the evening Orally Once a dayTaking glipiZIDE 5 MG Tablet 1 tablet Orally Once a dayTaking Breo Ellipta 100-25 MCG/INH Aerosol Powder Breath Activated 1 puff Inhalation Once a dayTaking Mucinex DM 30-600 MG Tablet Extended Release 12 Hour 1 tablet as needed Orally every 12 hrsTaking Imodium A-D 2 MG Tablet 1 tablet as needed Orally prn, Notes: prnTaking ZyrTEC Allergy 10 MG Tablet 1 tablet Orally Once a dayTaking Famotidine 40 MG Tablet 1 tablet Orally Once a dayNot-Taking/PRNOmeprazole 20 MG Capsule Delayed Release 1 capsule Orally Once a dayAspir-Low 81 MG Tablet Delayed Release 1 tablet Orally Once a dayNot-Taking/PRN Omeprazole 20 MG Capsule Delayed Release 1 capsule Orally Once a dayNot-Taking/PRN Aspir-Low 81 MG Tablet Delayed Release 1 tablet Orally Once a dayDiscontinuedLisinopril 5 MG Tablet 1 tablet Orally Once a dayClopidogrel Bisulfate 75 MG Tablet 1 tablet Orally Once a daySertraline HCl 25 MG Tablet 1 tablet Orally Once a daymetFORMIN HCl 500 MG Tablet 1am and 2pmtablet with a meal Orally as directedDicyclomine HCl metroNIDAZOLE Medication List reviewed and reconciled with the patientDiscontinued Lisinopril 5 MG Tablet 1 tablet Orally Once a dayDiscontinued Clopidogrel Bisulfate 75 MG Tablet 1 tablet Orally Once a dayDiscontinued Sertraline HCl 25 MG Tablet 1 tablet Orally Once a dayDiscontinued metFORMIN HCl 500 MG Tablet 1am and 2pmtablet with a meal Orally as directedDiscontinued Dicyclomine HCl Discontinued metroNIDAZOLE Medication List reviewed and reconciled with the patient * Allergies:?N.K.D.A.yes[Aller gies Verified] Objective: * Vitals:?Wt: 166 lbs, Ht: 69 in, BMI:24.51 Index, BP: 00/00 mm Hg. * Examination: ???General Examination: ?GENERAL APPEARANCE:?pleasant, well nourished, well developed, in no acute distress.?EYES:?sclera non-icteric.?ORAL CAVITY:?mucosa moist.?NECK/THYROID:?no cervical lymphadenopathy, neck supple.?SKIN:?nonjaundiced, no spider angiomata.?HEART:?S1, S2 normal.?LUNGS:?clear to auscultation bilaterally.?ABDOMEN:?normal bowel sounds, no guarding or rigidity, no guarding or rigidity, no masses palpable, soft, nontender, nondistended.?EXTREMITIES:?no edema.?NEUROLOGIC:?alert and oriented.? Assessment: * Assessment: 1.?Diarrhea, unspecified typ e - R19.7 (Primary)?2.?Iron deficiency anemia due to chronic blood loss - D50.0? Overall, Lopez appears to be d oing well from a GI standpoint. He is not having any new nor worrisome GI complaints. We did review the history of his intermittent diarrhea but at this time it does not seem to be particularly problematic for him and is not associated with any worrisome symptoms such as bleeding or weight loss. His good clinical appearance and laboratories from just the past few months are reassuring. We did review that his previous anemia has remained stable as well. Given his age, previous negative GI procedures, his good clinical appearance, and his clinical history, I advised him that I do not think he needs any further evaluation from a GI standpoint and specifically does not need a colonoscopy at this time. I did advise him to continue to use loperamide as needed. However, I did advise him to certainly call me if diarrhea becomes problematic and persistent, or becomes associated with any other symptoms such as bleeding or weight loss. Lopez understood this and was very comfortable with this plan. Thank you again for allowing me to have participated in Lopez's care. I shall continue to keep advised of his progress as needed. Please do not hesitate to contact me if I can be of any further assistance in the future. Plan: * Treatment: 2.?Iron deficiency anemia du e to chronic blood loss? Notes: Continue the Pantoprazole for your stomach?? * Procedure Codes:?1036F TOBAC CO NON-UBDDG6356 BP SCR NOT PRFRM REC REASON NOS * Preventive Medicine:? ??Screenings:?Fall Risk Screening?Fall Risk Assessment:?No falls in the past year,?Screening:?No falls in the past year,?Assessment:?Not performed, no reason specified,?Plan of Care:?Not documented, no reason specified.? * Follow Up:?prn * * Sign off status: Completed true * Provider:?Julio Cesar Chaparro MD Date:? 025 Generated for Danilo moreno/Kofi/Adrian on:?07/06/2024 04:36 PM EDT History and Physical Notes * HPI (History of Present Illness) Category Sub-Category Detail Notes Category Not es incontinence I saw Lopez in consultation today in regard to some intermittent diarrhea and a previous anemia. I last saw Lopez in February of 2020. At that time we had reviewed his history of some intermittent diarrhea and previous anemia, although at that time his blood counts had been remaining quite stable and I did not think he needed any GI procedures given the negative studies in 2019. Since his office visit in 2019 he reports that he has been doing fairly well from a GI standpoint but still has intermittent episodes of diarrhea. He reports that recently he has been using loperamide with good relief. He has not been needing that daily but when he does take the loperamide it does work well for him. He denies any associated signs of bleeding, abdominal pain, fevers, jaundice, nor any unintentional weight loss. He describes a good appetite and denies any significant issues with heartburn nor dysphagia. His laboratories from last year revealed normal LFTs and a hemoglobin of 13.4 with a normal MCV. He did have a Barium swallow in April of 2023 describing evidence of some reflux, a hiatal hernia, and some esophageal dysmotility. Examination Category Sub-Category Detail Notes Category Not es General Examination GENERAL APPEARANCE: pleasant , well [...]
--- OUTSIDE RECORDS SUMMARY | 2024-07-06 16:36 | XMS_ITS | Clinical Summary ---
[facility] Address [address] [place] [address] Care Team Providers Care Precision Lens Technician Name Role Phone Unavailable Primary Care Provider [...] DTaP,Tdap,and Td Vaccines (1 - Tdap) 11/18/1958 Pneumococcal Vaccine: 50+ Ye ars (1 of 1 - PCV) 11/18/1989 Zoster Vaccines (1 of 2) 11/18/1989 RSV Immunization Patients 60 + Years Old [...] patient's age to complete this topic Meningococcal B Vacine Aged Out No lo nger eligible based on patient's age to complete this topic RSV Immunization Patients Un aicha 20 months Aged Out No longer eligible b ased on patient's age to complete this topic Varicella Vaccines Aged Out No longer eligible based on patient's age to complete this topic
--- OUTSIDE RECORDS SUMMARY | 2024-07-06 16:36 | XMS_ITS | Patient Health Record ---
[facility] Jasbir terrell Hobson Address [address] [facility] [place] [address] Care Team Providers Care Curb Supervisor Name Role Phone Monica Darby Primary Care Provider Unavailab Fabricio Granados Unavailable [phone] Allergies No Known Allergies Results Component Value [...] Referring Provider Last Name Wilner [facility] Referred Provider Fabricio Juan [facility] [address] [facility], [place],[address], Referred Provider Specialty Podiatry Referral Priority Routine [...] Problem Acquired hammer toe of right foot (44424684121380 05) Other hammer toe(s) (acquired), right foot (M20.41) Active confirmed Problem Acquired hammer toe of left foot (08819728041888 03) Other hammer toe(s) (acquired), left foot (M20.42) Active confirmed Problem Type 2 diabetes mellitus with peripheral angiopathy (626029531) 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.51) Active confirmed Vital Signs Blood pressure diastolic 80 mm Hg 05/25/2024 Height 5 ft 6 in in 05/25/2024 Blood pressure systolic 120 mm Hg 05/25/2024 Weight 160 lbs 05/25/2024 BMI 25.82 kg/m2 05/25/2024 Procedures Procedure Date Ordered Date Performed Result Body Sit e 59869-TJCBJDT NAIL, 1-5 11/21/2023 N/A 09012-PMXH SKIN LESIONS, OVER 4 11/21/2023 N/A G8205-YUIIUOIT DYSTROPHIC NAILS ANY # 11/21/2023 N/A 91092-HNRUPPE NAIL, 1-5 02/24/2024 N/A 57691-RTIJ SKIN LESIONS, OVER 4 02/24/2024 N/A R3210-NDAMFVAQ DYSTROPHIC NAILS ANY # 02/24/2024 N/A 06142-OOUSOWX NAIL, 1-5 05/25/2024 N/A 11747-DRBY SKIN LESIONS, OVER 4 05/25/2024 N/A W2790-UKKMXGDC DYSTROPHIC NAILS ANY # 05/25/2024 N/A Encounters Encounter Location Date Provider Diagnosis [address] [address] 11/21/2023 Fabricio Yessica Type 2 diabetes mellitus with diabetic peripheral angiopathy without gangrene E11.51 ; Tinea unguium B35.1 ; Pain in right toe(s) M79.674 ; Pain in left toe(s) M79.675 and Xerosis of skin L85.[address] [address] 02/24/2024 Fabricio Parrunier Type 2 diabetes mellitus with diabetic peripheral angiopathy without gangrene E11.51 ; Tinea unguium B35.1 ; Pain in right toe(s) M79.674 ; Pain in left toe(s) M79.675 and Xerosis of skin L85.[address] [address] 05/25/2024 Fabriciomariposa ParrYessica Type 2 diabetes mellitus with diabetic peripheral angiopathy without gangrene E11.51 ; Tinea unguium B35.1 ; Pain in right toe(s) M79.674 ; Pain in left toe(s) M79.675 ; Other hammer toe(s) (acquired), right foot M20.41 and Other hammer toe(s) (acquired), left foot M20.42 Assessments Encounter Date Diagnosis (ICD Code) Assessment Notes Treatment Notes Treatment Clinical Notes Section Notes 11/21/2023 Tinea unguium (ICD-10 - B35.1) 11/21/2023 [...] toe(s) (acquired), left foot (ICD-10 - M20.42) 11/21/2023 Other 02/24/2024 Other Plan Of Treatment Pending Test Test Name Order Date X ray : Foot, left 3V 02/06/2022 45670-WLGZJFP NAIL, 1-5 05/07/2022 67802-AOTFTFK NAIL, 1-5 01/21/2022 25539-CYGJCWK NAIL, 1-5 08/13/2022 01282-GTQLLBF NAIL, 1-5 11/12/2022 69685-TGXOQZT NAIL, 1-5 02/04/2023 72817-JWYPXEH NAIL, 1-5 06/13/2023 62883-DQODNMZ NAIL, 1-5 11/21/2023 45886-OCARXIS NAIL, 1-5 02/24/2024 79365-WIZZJZM NAIL, 1-5 05/25/2024 28078-Qrzi Destruction, 1-14 02/04/2023 96286-Yvzd Destruction, 1-14 11/12/2022 99556-Gdgt Destruction, 1-14 08/13/2022 10594-Inmh Destruction, -14 01/21/2022 34730-Yoav Destruction, -14 05/07/2022 75193-ZMOT SKIN LESIONS, OVER 4 05/07/19 23 12634-BYNJ SKIN LESIONS, OVER 4 01/22/20 22 55284-KDLB SKIN LESIONS, OVER 4 08/14/19 23 50737-QAUQ SKIN LESIONS, OVER 4 11/13/19 23 93975-AWBB SKIN LESIONS, OVER 4 02/05/20 23 57794-TRBC SKIN LESIONS, OVER 4 11/21/19 24 82586-HWRO SKIN LESIONS, OVER 4 06/13/19 24 73475-WTOF SKIN LESIONS, OVER 4 05/25/19 25 59379-JMVW SKIN LESIONS, OVER 4 02/24/20 24 S3933-JZODXKER DYSTROPHIC NAILS ANY # A8754-UJTMYVPA DYSTROPHIC NAILS ANY # V6666-MTYEYRNM DYSTROPHIC NAILS ANY # N9367-AYLDUOLZ DYSTROPHIC NAILS ANY # Z3001-XGZPUMXA DYSTROPHIC NAILS ANY # F6862-MZDMSITM DYSTROPHIC NAILS ANY # N5706-MPTBTMAU DYSTROPHIC NAILS ANY Q4195-UNOZQBAA DYSTROPHIC NAILS ANY # V9027-HELOOQKA DYSTROPHIC NAILS ANY # Next Appt Details Provider Name:Fabricio Juan , 08/24/2024 02:45:00 PM, [address] [facility], [place], [address], Insurance Providers Payer Name Payer Address Payer Phone Subscriber Number Group Number Insured Name Patient Relationship to Insured Coverage Start Date Coverage End Date [employer] Preferred [address] [place] [phone] [id number] Jhonny Shrestha Self - patient is the insured Medical (General) History Medical History History ICD Code asthma Diabetic type ll Lung disease Parkinsons disease Stroke Chicken pox COPD Colon CA Hypercholesterolemia Hypertension Surgical History Surgery Date(Month/Year) appendectomy gall bladder cataract surgery Hospitalization History Reason Date(Month/Year) Ultrasound both legs for veins 2021
--- OUTSIDE RECORDS SUMMARY | 2024-07-06 16:37 | XMS_ITS | Patient Health Record ---
Author Organization [facility] Address [address] [facility] [address] [place] [address] Care Team Providers Care Client Delivery Specialist Name Role Phone Monica Darby Primary Care Provider UnavailJulio Cesar Ba Unavailable [phone] Allergies No Known Allergies Reason For Referral Referring Provider First Name Monica Referring Provider Last Name Wilner Referring Provider Speciality Internal M edicine Referred Organization [facility] Referred Provider Julio Cesar Chaparro Referred Address [address] [place] [address],[address],[place], [place],[address],[place] Referred Provider Specialty Gastroentero logy Referral Priority Routine Medications Medication SIG (Take, [...] e a day for 30 day(s) Active Immunizations Vaccine Route Administration Date Status Comme nts Influenza Unknown 01/28/2018 Administered Influenza Unknown 12/20/2018 Administered Influenza Unknown 12/29/2019 Administered Social History Tobacco Use: Social History [...] Negative Section Notes: Nonsmoker; no sig alcohol Nonsmoker; no sig alcohol Nonsmoker; no sig alcohol Nonsmoker; no sig alcohol Problems Problem Type SNOMED Code ICD Code Onset Dates Problem Status W/U Status Risk Notes Problem 660239386 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 [address] [place] [address] 04/27/2024 Julio Cesar Chaparro Diarrhea, unspecifie d type R19.7 and Iron deficiency anemia due to chronic blood loss D50.0 Assessments Encounter Date Diagnosis (ICD Code) Assessment Notes Treatment Notes Treatment Clinical Notes Section Notes 04/27/2024 Iron deficiency anemia due to [...] any further assistance in the future. 04/27/2024 Diarrhea, unspecified type (ICD-10 - R19.7) [...] for allowing me to have participated in Brittas care. I shall continue to keep advised of his progress as needed. Please do not hesitate to contact me if I can be of any further assistance in the future. Plan Of Treatment Pending Test Test Name Order Date IRON + IBC (FE) 05/20/2019 IRON + IBC (FE) 09/28/2018 IRON + IBC (FE) 08/25/2018 FERRITIN 08/25/2018 FERRITIN 05/20/2019 FERRITIN 09/28/2018 CBC w DIFF 08/25/2018 CBC w DIFF 05/20/2019 CBC w DIFF 09/28/2018 Insurance Providers Payer Name Payer Address Payer Phone Subscriber Number Group Number Insured Name Patient Relationship to Insured Coverage Start Date Coverage End Date [employer] PREFERRED [address] [place] [phone] [id number] LOPEZ CASEY Self - patient is the insured Medical (General) History Medical History History ICD Code Strokes--sees Dr. Ornelas NIDDM Hypertension Asthma COPD Denies NE,renal disease Iron deficiency anemia-he wa s hospitalized [...]
--- OUTSIDE RECORDS SUMMARY | 2024-07-06 16:37 | XMS_ITS ---
Author Organization [facility] Address [address] [facility] [place] [address] Care Team Providers Care Solaris Administrator Name Role Phone Monica Darby Primary Care Provider Unavailab Fabricio Granados Unavailable [phone] Allergies No Known Allergies REASON FOR VISIT [...] Ordered Date Performed Result Body Sit e 46764-OTECEVV NAIL, 1-5 05/25/2024 N/A 59996-BGPO SKIN LESIONS, OVER 4 05/25/2024 N/A D5375-MQYUGUPM DYSTROPHIC NAILS ANY # 05/25/2024 N/A Encounters Encounter Location Date Provider Diagnosis [facility] [place] [address] [place] [address] 05/25/2024 Fabricio Juan Type 2 diabetes mellitus [...] INSTRUCTIONS.pdf) Pending Test Test Name Order Date 42037-JUONVZT NAIL, 1-5 05/25/2024 03865-UOIS SKIN LESIONS, OVER 4 05/25/19 25 Y5107-GQTNVCPF DYSTROPHIC NAILS ANY # Next Appt Details Follow Up: prn, Reason: Provider Name:Fabricio Juan , 08/24/2024 02:45:00 PM, [address] [place] [address], [address], Procedure Notes * Category Sub-Category Detail Notes [...] instrumentation by the physician of record - 04466, Q8 Debride Nails 1-5 Procedure: Due to [...] necessary to maintain effective symptomatic relief - 46997 Nail Reduction Nail Reduction (-27) Trimming o [...] Notes * Jesenia CASEYOB:1940 (83 yo M)Acc No.[id number]:05/25/2024 Progress Note Patient:?Jhonny CASEY Provider:?Fabricio Juan DPM :1940???Age:83 Y???Sex:Male Romel e:05/25/2024 Address:[address] [place] [address], [facility] Pcp:Monica Darby Subjective: * Chief Complaints: * [...] 6.6 * Examination: ???Ophthalmology Referral: ?DIABETES EYE EXAM?Procedure Performed:?Yes ?Date of Exam Performed?04/28/2024 ?Diabetic Retinopathy Screening:?Yes ?Retinal Screening Performed:?Yes ?Findings of Diabetic Eye Exam:?no retinopathy?Vascular: ?DP PULSES (B):? 0/4, B/L.?PT PULSES (B):? [...] for office visit today.?ORIENTED:?person, place, and time.?FOOT EXAM:?Lower Extremity Neurological Exam performed:?Yes ?Visual exam of foot performed:?Yes ?Date?05/25/2024 ?Footwear Evaluation?Footwear Evaluation performed:?Yes??? Assessment: * Assessment: 1.?Tinea unguium - B35.1???2 .?Type 2 diabetes mellitus with diabetic peripheral angiopathy without gangrene - E11.51 (Primary)???3.?Pain in right toe(s) - M79.674???4.?Pain in left toe(s) - M79.675???5.?Other hammer toe(s) (acquired), right foot - M20.41???Specify :Chronic problem, Worse (4)???6.?Other hammer toe(s) (acquired), left foot - M20.42???Specify :Chronic problem, Worse (4)??? Plan: * Treatment: 2.?Tinea unguium?Procedure: 23177-BXOZNLV NAIL, 1-5 3.?Other hammer toe(s) (acqu ired), [...] necessary to maintain effective symptomatic relief - 56632.?Keratoma Treatment:?Parring or Cutting of Benign Hyperkeratotic Lesion(s)?(-57) [...] instrumentation by the physician of record - 78305, Q8.?Nail Reduction:?Nail Reduction?(-27) Trimming of all dystrophic [...] DYSTROPHIC NAILS ANY #, Modifiers: XS , L738628 DEBRIDE NAIL, 1-5, Modifiers: XS 75291 TRIM SKIN LESIONS, OVER 4, Modifiers: XS [...] Provider:?Fabricio Juan DPM Date:?2024 Generated for Danilo moreno/Kofi/Adrian on:?07/06/2024 04:36 PM [...] structure , No Charcot collapse/destruction noted at [facility] FOOTWEAR: worn, OT were inspec tevin and [...]
--- OUTSIDE RECORDS SUMMARY | 2024-07-06 16:37 | XMS_ITS | Clinical Summary ---
Author Organization [facility] Address [address] [place] [address] Care Team Providers Care J2Ee Engineer Name Role Phone Monica Darby MD Primary [...] DAILY 3 Active Lancets (OneTouch Delica Plus [id number]) misc USE TO CHECK SUGARS DAILY 3 [...] patient's age to complete this topic Insurance [facility] Care Teams J2Ee Engineer Relationship Specialty Start Date End Date Monica Darby MD [address] [place] [address] PCP - General Internal Medicine 05/14/22
--- OUTSIDE RECORDS SUMMARY | 2024-07-06 16:37 | XMS_ITS ---
Author Organization [facility] Address [address] [facility] [place] [address] Care Team Providers Care Mine Technician Name Role Phone Monica Darby Primary Care Provider Unavailab Fabricio Granados Unavailable [phone] Allergies No Known Allergies REASON FOR VISIT [...] Ordered Date Performed Result Body Sit e 47723-WLXRPOB NAIL, 1-02/24/2024 N/A 80991-LDPG SKIN LESIONS, OVER 4 02/24/2024 N/A F0613-FYUWZGUK DYSTROPHIC NAILS ANY # 02/24/2024 N/A Encounters Encounter Location Date Provider Diagnosis [facility] [address] [address] 02/24/2024 Fabricio Juan Type 2 diabetes mellitus [...] Treatment Pending Test Test Name Order Date 91321-YXETWSA NAIL, 1-5 02/24/2024 53185-WNXM SKIN LESIONS, OVER 4 02/24/20 24 L7628-BYBAQGXN DYSTROPHIC NAILS ANY # Next Appt Details Follow Up: prn, Reason: Provider Name:Fabricio Juan , 08/24/2024 02:45:00 PM, [address] [place], [address], Procedure Notes * Category Sub-Category Detail Notes Keratoma Treatment Parring or Cutting o f Benign Hyperkeratotic Lesion(s) (-57) More than 4 Lesions - The Benign hyperkeratotic lesions, as described above were pared, and/or cut utilizing a sterile 15 blade, tissue nippers, and/or dremel - 60378 , Q8 Debride Nails 1-5 Procedure: Performance of this nail treatment by a nonprofessional would put this patients foot and overall health at risk. Therefore, nail debridement was performed extensively to reduce/remove overall nail length, girth, thickness, subungual debris, and necrotic tissue, by manual and/or electrical means through the use of a nail nipper and/or dremel-type grinder mill operator, to a more viable healthy nail plate or bed tissue 1-5. Silver nitrate used for any petechial bleeding as necessary. Definitive antifungal treatment options have been reviewed and discussed with the patient. The patient chooses, no pharmaceutical tx - 96755 Nail Reduction Nail Reduction (-27) Trimming o f dystrophic nails performed to reduce/remove overall nail length and girth, by manual and electrical means with use of a nail nipper and/or dremel, to more viable healthy nail plate or bed tissue, any number - G0127 , Q8 Progress Notes * Jesenia CASEYOB:1940 (83 yo M)Acc No.[id number]:02/24/2024 Progress Note Patient:?Fady Jhonny Provider:?Fabricio Juan DPM :1940???Age:83 Y???Sex:Male Romel e:02/24/2024 Address:[address] [place] [address] [id number] Pcp:Monica Darby Subjective: * Chief Complaints: * [...] mellitus with diabetic peripheral angiopathy without gangrene?Procedure: 59358-EDGG SKIN LESIONS, OVER 4 ?Procedure: U3405-QFHNTPEP DYSTROPHIC NAILS ANY # * Procedures:?Debride Nails 1-5:?Procedure:?Performance of this nail treatment by a nonprofessional would put this patients foot and overall health at risk. Therefore, nail debridement was performed extensively to reduce/remove overall nail length, girth, thickness, subungual debris, and necrotic tissue, by manual and/or electrical means through the use of a nail nipper and/or dremel-type grinder mill operator, to a more viable healthy nail plate or bed tissue 1-5. Silver nitrate used for any petechial bleeding as necessary. Definitive antifungal treatment options have been reviewed and discussed with the patient. The patient chooses, no pharmaceutical tx - 32309.?Keratoma Treatment:?Parring or Cutting of Benign Hyperkeratotic Lesion(s)?(-57) More than 4 Lesions - The Benign hyperkeratotic lesions, as described above were pared, and/or cut utilizing a sterile 15 blade, tissue nippers, and/or dremel - 58077 , Q8.?Nail Reduction:?Nail Reduction?(-27) Trimming of dystrophic nails performed to reduce/remove overall nail length and girth, by manual and electrical means with use of a nail nipper and/or dremel, to more viable healthy nail plate or bed tissue, any number - G0127 , Q8.? * Procedure Codes:?G0127 TIFFANIE ING DYSTROPHIC NAILS ANY #, Modifiers: XS , [id number] DEBRIDE NAIL, 1-5, Modifiers: XS 73298 TRIM SKIN LESIONS, OVER 4, Modifiers: XS [...]
== END 2024-07-06 15:14 | disposition home or self-care (01) ==
LOC: HO.HCS 13:56
PROVIDERS: PCP Internal Medicine; Visit Provider Internal Medicine Cardiovascular Disease
DX: I49.5 Sick sinus syndrome (principal); I45.2 Bifascicular block; I73.9 Peripheral vascular disease, unspecified
CPT/HCPCS: 93010; 99214; G2211

== ENCOUNTER → 2024-07-06 13:55 | Outpatient (BNVA) | payer MEDICARE, SELFPAY | PROVIDERS: PCP Internal Medicine; Visit Provider Internal Medicine Cardiovascular Disease | DX: I49.5 Sick sinus syndrome (principal); I45.2 Bifascicular block; I73.9 Peripheral vascular disease, unspecified | CPT/HCPCS: 93005; 99212 ==

== ENCOUNTER 2024-07-26 07:24 | Outpatient (REF) | payer MEDICARE, SELFPAY ==
--- OUTSIDE RECORDS SUMMARY | 2024-07-26 07:27 | XMS_ITS ---
Author Organization [facility] Address [address] [place] [address] Care Team Providers Care Gas Roller Operator Name Role Phone Monica Darby Primary Care Provider Unavailab Julio Cesar Vides [phone] REASON FOR VISIT PLEASE LOCK NOTE FROM 04-27-24 Encounters Encounter Location Date Provider Diagnosis [facility] [address] [place] [address] 07/13/2024 Julio Cesar Chaparro Plan Of Treatment No Information Progress Notes * RONALD CASEYOB:1940 (83 yo M)Acc No.[id number]:07/13/2024 Patient:?LOPEZ CASEY :1940???Age:83 Y???Sex:Male Address:[address] [place] [address], [address] * true * Date:? Generated for Danilo moreno/Kofi/eTransmitting on:?07/26/2024 07:27 AM EDT
--- OUTSIDE RECORDS SUMMARY | 2024-07-26 07:27 | XMS_ITS ---
Author Organization [facility] Address [address] [facility] [place] [address] Care Team Providers Care Oil House Attendant Name Role Phone Monica Darby Primary Care Provider Unavailab Fabricio Granados Unavailable [phone] Allergies No Known Allergies REASON FOR VISIT [...] Ordered Date Performed Result Body Sit e 25177-BSVDBPO NAIL, 1-5 11/21/2023 N/A 14221-LVDV SKIN LESIONS, OVER 4 11/21/2023 N/A H8676-KGCQDUJC DYSTROPHIC NAILS ANY # 11/21/2023 N/A Encounters Encounter Location Date Provider Diagnosis [facility] [address] [address] 11/21/2023 Fabricio Juan Type 2 diabetes mellitus [...] days Pending Test Test Name Order Date 46913-WNOXGBP NAIL, 1-5 11/21/2023 75698-YUHS SKIN LESIONS, OVER 4 11/21/19 24 R9559-YZVBMEWM DYSTROPHIC NAILS ANY # Next Appt Details Follow Up: prn, Reason: Provider Name:Fabricio Juan , 08/24/2024 02:45:00 PM, [address] [place], [address], Procedure Notes * Category Sub-Category Detail Notes Keratoma Treatment Parring or Cutting o f Benign Hyperkeratotic Lesion(s) 61237 ( >4 Lesions) - The Benign hyperkeratotic [...] as necessary. Patient chooses, no pharmaceutical tx (29413) Nail Reduction Nail Reduction Trimming of dyst rophic nails performed to reduce/remove overall nail length and girth, by manual and electrical means with use of a nail nipper and/or dremel, to more viable healthy nail plate or bed tissue 6-10 (U3553-V6) Progress Notes * Jesenia CASEYOB:1940 (83 yo M)Acc No.[id number]:11/21/2023 Progress Note Patient:?Jhonny CASEY Provider:?Fabricio Juan DPM :1940???Age:83 Y???Sex:Male Romel e:11/21/2023 Address:[address] [place] [address] [id number] Pcp:Monica Darby Subjective: * Chief Complaints: * [...] mellitus with diabetic peripheral angiopathy without gangrene?Procedure: 75166-TGSV SKIN LESIONS, OVER 4 ?Procedure: J8421-MTPFLIJF DYSTROPHIC NAILS ANY # 3.?Xerosis of skin? [...] as necessary. Patient chooses, no pharmaceutical tx (28840).?Keratoma Treatment:?Parring or Cutting of Benign Hyperkeratotic Lesion(s)?97103 ( >4 Lesions) - The Benign hyperkeratotic [...] DYSTROPHIC NAILS ANY #, Modifiers: XS , H941633 DEBRIDE NAIL, 1-5, Modifiers: XS 83955 TRIM SKIN LESIONS, OVER 4, Modifiers: XS [...] Juan DPM Date:?2023 Generated for Danilo moreno/Kofi/Adrian on:?07/26/2024 07:27 AM EDT History and Physical Notes * HPI [...]
--- OUTSIDE RECORDS SUMMARY | 2024-07-26 07:27 | XMS_ITS | Patient Health Record ---
Author Organization [facility] Jasbir [place] Address [address] [facility] [place] [address] Care Team Providers Care Rotor Coil Taper Name Role Phone Monica Darby Primary Care Provider Unavailab Fabricio Granados Unavailable [phone] Allergies No Known Allergies Results Component Value [...] Referring Provider Last Name Wilner [facility] Referred Provider Fabricio Juan Referred Address [address] [facility],[place], [place],[address], Referred Provider Specialty Podiatry Referral Priority Routine [...] Problem Acquired hammer toe of right foot (77827390119850 05) Other hammer toe(s) (acquired), right foot (M20.41) Active confirmed Problem Acquired hammer toe of left foot (53161691216029 03) Other hammer toe(s) (acquired), left foot (M20.42) Active confirmed Problem Type 2 diabetes mellitus with peripheral angiopathy (465209681) 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.51) Active confirmed Vital Signs Blood pressure diastolic 80 mm Hg 05/25/2024 Height 5 ft 6 in in 05/25/2024 Blood pressure systolic 120 mm Hg 05/25/2024 Weight 160 lbs 05/25/2024 BMI 25.82 kg/m2 05/25/2024 Procedures Procedure Date Ordered Date Performed Result Body Sit e 15012-REGZLVA NAIL, 1-5 11/21/2023 N/A 14925-KDKR SKIN LESIONS, OVER 4 11/21/2023 N/A R5020-PRFDNMJT DYSTROPHIC NAILS ANY # 11/21/2023 N/A 70642-TTLTYIC NAIL, 1-5 02/24/2024 N/A 81618-MKOD SKIN LESIONS, OVER 4 02/24/2024 N/A I7815-WLHRWVLK DYSTROPHIC NAILS ANY # 02/24/2024 N/A 03283-TKNRBHY NAIL, 1-5 05/25/2024 N/A 71772-OZYT SKIN LESIONS, OVER 4 05/25/2024 N/A D4254-GWMXSFQS DYSTROPHIC NAILS ANY # 05/25/2024 N/A Encounters Encounter Location Date Provider Diagnosis [address] [address] 11/21/2023 Fabricio Yessica Type 2 diabetes mellitus with diabetic peripheral angiopathy without gangrene E11.51 ; Tinea unguium B35.1 ; Pain in right toe(s) M79.674 ; Pain in left toe(s) M79.675 and Xerosis of skin L85.[address] [address] 02/24/2024 Fabricio Parrunier Type 2 diabetes mellitus with diabetic peripheral angiopathy without gangrene E11.51 ; Tinea unguium B35.1 ; Pain in right toe(s) M79.674 ; Pain in left toe(s) M79.675 and Xerosis of skin L85.[address] [address] 05/25/2024 Fabriciomariposa ParrYessica Type 2 diabetes mellitus [...] X ray : Foot, left 3V 02/06/2022 14345-XWAMHFO NAIL, 1-5 05/07/2022 89071-YNFBMDX NAIL, 1-5 01/21/2022 72366-WXWJXUJ NAIL, 1-5 08/13/2022 74501-WISZYML NAIL, 1-5 11/12/2022 92177-PYXAOUZ NAIL, 1-5 02/04/2023 93034-DPXPDUO NAIL, 1-5 06/13/2023 40025-DUMKSCJ NAIL, 1-5 11/21/2023 51037-FMMKZOV NAIL, 1-5 02/24/2024 93842-PPNFMZT NAIL, 1-5 05/25/2024 48231-Owba Destruction, 1-14 02/04/2023 22600-Opoy Destruction, 1-14 11/12/2022 26224-Ydct Destruction, 1-14 08/13/2022 40243-Cwme Destruction, -14 01/21/2022 75316-Ilsq Destruction, -14 05/07/2022 94254-DDJC SKIN LESIONS, OVER 4 05/07/19 23 92264-FZFI SKIN LESIONS, OVER 4 01/22/20 22 66683-UQVM SKIN LESIONS, OVER 4 08/14/19 23 70370-VMNL SKIN LESIONS, OVER 4 11/13/19 23 81559-BUBS SKIN LESIONS, OVER 4 02/05/20 23 04836-UXJY SKIN LESIONS, OVER 4 11/21/19 24 31856-TDFN SKIN LESIONS, OVER 4 06/13/19 24 13367-ODCD SKIN LESIONS, OVER 4 05/25/19 25 80750-PAWP SKIN LESIONS, OVER 4 02/24/20 24 Q5224-EWLUSXWD DYSTROPHIC NAILS ANY # P9808-CCGUJHXM DYSTROPHIC NAILS ANY # N9099-AXMDCHKV DYSTROPHIC NAILS ANY # D5932-TYRAGFHC DYSTROPHIC NAILS ANY # G8049-HEBFGXWZ DYSTROPHIC NAILS ANY # G9555-RLIQRNSU DYSTROPHIC NAILS ANY # U2843-RCZZBIFG DYSTROPHIC NAILS ANY H0057-TGYMIUYZ DYSTROPHIC NAILS ANY # V3714-WFKCWCJR DYSTROPHIC NAILS ANY # Next Appt Details Provider Name:Fabricio Juan , 08/24/2024 02:45:00 PM, [address] [facility], [place], [address], Insurance Providers Payer Name Payer Address Payer Phone Subscriber Number Group Number Insured Name Patient Relationship to Insured Coverage Start Date Coverage End Date [employer] Preferred [address] [place] [phone] [id number] Jhonny Shrestha Self - patient is the insured Medical (General) History Medical History History ICD Code asthma Diabetic type ll Lung disease Parkinsons disease Stroke Chicken pox COPD Colon CA Hypercholesterolemia Hypertension Surgical History Surgery Date(Month/Year) appendectomy gall bladder cataract surgery Hospitalization History Reason Date(Month/Year) Ultrasound both legs for veins 2021
--- OUTSIDE RECORDS SUMMARY | 2024-07-26 07:27 | XMS_ITS ---
Author Organization [facility] Address [address] [place] [address] Care Team Providers Care Olap Developer Name Role Phone Monica Darby Primary Care Provider UnavailJulio Cesar Ba Unavailable [phone] Allergies No Known Allergies REASON FOR VISIT [...] Diagnosis [facility] [address] [place] [address] 04/27/2024 Julio Cesar Chaparro Diarrhea, unspecifie d [...] Notes * RONALD CASEYOB:1940 (83 yo M)Acc No.[id number]:04/27/2024 Progress Notes Patient:?LOPEZ CASEY Provider:?Julio Cesar Chaparro MD :1940???Age:83 Y???Sex:Male Romel e:04/27/2024 Address:[address] [place], [place] [id number] Pcp:Monica Darby Subjective: * Chief Complaints: * [...] Tablet 1 tablet Orally Once a day ProAir HFA Pepcid 40 MG Tablet 1 tablet at bedtime as needed Orally Once a day Lisinopril-hydroCHLOROthiazide 20-12.5 MG Tablet 1 tablet Orally Once a day Flonase Simvastatin 40 MG Tablet 1 tablet in the evening Orally Once a day glipiZIDE 5 MG Tablet 1 tablet Orally Once a day Breo Ellipta 100-25 MCG/INH Aerosol Powder Breath Activated 1 puff Inhalation Once a day Mucinex DM 30-600 MG Tablet Extended Release 12 Hour 1 tablet as needed Orally every 12 hrs Imodium A-D 2 MG Tablet 1 tablet as needed Orally prn , Notes to Pharmacist: prnZyrTEC Allergy 10 MG Tablet 1 tablet Orally Once a day Famotidine 40 MG Tablet 1 tablet Orally Once a day Taking Calcium + D Taking Loperamide HCl Taking Finasteride 5 MG Tablet 1 tablet Orally Once a day Taking ProAir HFA Taking Pepcid 40 MG Tablet 1 tablet at bedtime as needed Orally Once a day Taking Lisinopril-hydroCHLOROthiazide 20-12.5 MG Tablet 1 tablet Orally Once a day Taking Flonase Taking Simvastatin 40 MG Tablet 1 tablet in the evening Orally Once a day Taking glipiZIDE 5 MG Tablet 1 tablet Orally Once a day Taking Breo Ellipta 100-25 MCG/INH Aerosol Powder Breath Activated 1 puff Inhalation Once a day Taking Mucinex DM 30-600 MG Tablet Extended Release 12 Hour 1 tablet as needed Orally every 12 hrs Taking Imodium A-D 2 MG Tablet 1 tablet as needed Orally prn , Notes to Pharmacist: prnTaking ZyrTEC Allergy 10 MG Tablet 1 tablet Orally Once a day Taking Famotidine 40 MG Tablet 1 tablet Orally Once a day Not-Taking/PRNOmeprazole 20 MG Capsule Delayed Release 1 capsule Orally Once a day Aspir-Low 81 MG Tablet Delayed Release 1 tablet Orally Once a day Not-Taking/PRN Omeprazole 20 MG Capsule Delayed Release 1 capsule Orally Once a day Not- Taking/PRN Aspir-Low 81 MG Tablet Delayed Release 1 tablet Orally Once a day DiscontinuedLisinopril 5 MG Tablet 1 tablet Orally Once a day Clopidogrel Bisulfate 75 MG Tablet 1 tablet Orally Once a day Sertraline HCl 25 MG Tablet 1 tablet Orally Once a day metFORMIN HCl 500 MG Tablet 1am and 2pmtablet with a meal Orally as directed Dicyclomine HCl metroNIDAZOLE Medication List reviewed and reconciled with the patientDiscontinued Lisinopril 5 MG Tablet 1 tablet Orally Once a day Discontinued Clopidogrel Bisulfate 75 MG Tablet 1 tablet Orally Once a day Discontinued Sertraline HCl 25 MG Tablet 1 tablet Orally Once a day Discontinued metFORMIN HCl 500 MG Tablet 1am and 2pmtablet with a meal Orally as directed Discontinued Dicyclomine HCl Discontinued metroNIDAZOLE Medication List reviewed and reconciled with the patient * Allergies:?N.K.D.A.yes[Aller gies Verified] Objective: * Vitals:?Wt: 166 lbs, Ht: 69 in, BMI:24.51Index, BP: 00/00 mm Hg. * Examination: ???General Examination: ?GENERAL APPEARANCE:?pleasant, well nourished, well developed, in no acute distress.?EYES:?sclera non-icteric.?ORAL CAVITY:?mucosa moist.?NECK/THYROID:?no cervical lymphadenopathy, neck supple.?SKIN:?nonjaundiced, no spider angiomata.?HEART:?S1, S2 normal.?LUNGS:?clear to auscultation bilaterally.?ABDOMEN:?normal bowel sounds, no guarding or rigidity, no guarding or rigidity, no masses palpable, soft, nontender, nondistended.?EXTREMITIES:?no edema.?NEUROLOGIC:?alert and oriented.? Assessment: * Assessment: 1.?Diarrhea, unspecified typ e - R19.7 (Primary)???2.?Iron deficiency anemia due to chronic blood loss - D50.0??? Overall, Lopez appears to be d oing [...] your stomach?? * Procedure Codes:?1036F TOBAC CO NON-IKMDD6467 BP SCR NOT PRFRM REC REASON NOS * Preventive Medicine:? ??Screenings:?Fall Risk Screening?Fall Risk Assessment:?No falls in the past year,?Screening:?No falls in the past year,?Assessment:?Not performed, no reason specified,?Plan of Care:?Not documented, no reason specified.? * Follow Up:?prn * * Sign off status: Completed true * Provider:?Julio Cesar Chaparro MD Date:? 025 Generated for Danilo moreno/Kofi/eTransmitting on:?07/26/2024 07:27 AM EDT History and Physical [...]
--- OUTSIDE RECORDS SUMMARY | 2024-07-26 07:27 | XMS_ITS | Clinical Summary ---
[facility] Address [address] [place] [address] Care Team Providers Care Special Weapons And Tactics Officer Name Role Phone Unavailable Primary Care Provider [...] Vaccines (1 of 2) 11/18/1989 RSV Immunization Adult Patie nts (1 - 1-dose 75+ series) 11/18/2014 COVID-19 [...]
--- OUTSIDE RECORDS SUMMARY | 2024-07-26 07:28 | XMS_ITS | Patient Health Record ---
Author Organization [facility] Address [address] [facility] [address] [place] [address] Care Team Providers Care Core Shaper Sides Name Role Phone Monica Darby Primary Care Provider UnavailJulio Cesar Ba Unavailable [phone] Allergies No Known Allergies Reason For Referral Referring Provider First Name Monica Referring Provider Last Name Wilner Referring Provider Speciality Internal M edicine Referred Organization [facility] Referred Provider Julio Cesar Chaparro Referred Address [address] [place] [address],[address],[place], [place],[address],[place] Referred Provider Specialty Gastroentero logy Referral Priority [...] Problem Status W/U Status Risk Notes Problem 651771743 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) Active confirmed Problem 39838358 Diarrhea, unspecified type (R19.7) Active confirmed Problem 648248317 Angiodysplasia o f stomach (K31.819) Active confirmed Vital Signs Blood pressure diastolic 00 mm Hg 04/27/2024 Height 69 in 04/27/2024 Blood pressure systolic 00 mm Hg 04/27/2024 Weight 166 lbs 04/27/2024 BMI 24.51 kg/m2 04/27/2024 Encounters Encounter Location Date Provider Diagnosis [facility] [address] [place] [address] 04/27/2024 Julio Cesar Chaparro Diarrhea, unspecifie d type R19.7 and Iron deficiency anemia due to chronic blood loss D50.0 [facility] [address] [place] [address] 07/13/2024 Julio Cesar Chaparro Assessments Encounter Date Diagnosis (ICD Code) Assessment [...] MEDICARE PREFERRED [address] [place] [phone] [id number] LOPEZ CASEY Self - patient is the insured Medical (General) History Medical History History ICD Code Strokes--sees Dr. Johnson MCDONALDDM Hypertension Asthma COPD Denies PR,renal disease Iron deficiency anemia-he wa s hospitalized [...]
--- OUTSIDE RECORDS SUMMARY | 2024-07-26 07:28 | XMS_ITS ---
Author Organization [facility] Address [address] [place] [address] Care Team Providers Care Machine Trimmer Name Role Phone Monica Darby Primary Care Provider Unavailab Fabricio Granados Unavailable [phone] Allergies No Known Allergies REASON FOR VISIT [...] Ordered Date Performed Result Body Sit e 01935-WIXMZJK NAIL, 1-02/24/2024 N/A 20832-INGG SKIN LESIONS, OVER 4 02/24/2024 N/A H4791-XUOTPWVF DYSTROPHIC NAILS ANY # 02/24/2024 N/A Encounters Encounter Location Date Provider Diagnosis [facility] [address] [address] 02/24/2024 Fabricio Juan Type 2 diabetes mellitus [...] Treatment Pending Test Test Name Order Date 51471-ZCMGAIH NAIL, 1-5 02/24/2024 64141-ERIR SKIN LESIONS, OVER 4 02/24/20 24 Q2321-VOGOZJIH DYSTROPHIC NAILS ANY # Next Appt Details Follow Up: prn, Reason: Provider Name:Fabricio Juan , 08/24/2024 02:45:00 PM, [address] [place], [address], Procedure Notes * Category Sub-Category Detail Notes Keratoma Treatment Parring or Cutting o f Benign Hyperkeratotic Lesion(s) (-57) More than 4 Lesions - The Benign hyperkeratotic lesions, as described above were pared, and/or cut utilizing a sterile 15 blade, tissue nippers, and/or dremel - 25107 , Q8 Debride Nails 1-5 Procedure: Performance of this nail treatment by a nonprofessional would put this patients foot and overall health at risk. Therefore, nail debridement was performed extensively to reduce/remove overall nail length, girth, thickness, subungual debris, and necrotic tissue, by manual and/or electrical means through the use of a nail nipper and/or dremel-type grinder set up operator gear tool, to a more viable healthy nail plate or bed tissue 1-5. Silver nitrate used for any petechial bleeding as necessary. Definitive antifungal treatment options have been reviewed and discussed with the patient. The patient chooses, no pharmaceutical tx - [address] Nail Reduction Nail Reduction (-27) Trimming o f dystrophic nails performed to reduce/remove overall nail length and girth, by manual and electrical means with use of a nail nipper and/or dremel, to more viable healthy nail plate or bed tissue, any number - G0127 , Q8 Progress Notes * Jesenia CASEYOB:1940 (83 yo M)Acc No.[id number]:02/24/2024 Progress Note Patient:?Fady Jhonny Provider:?Fabricio Juan DPM :1940???Age:83 Y???Sex:Male Romel e:02/24/2024 Address:[address] [place] [address] [facility] Pcp:Monica Darby Subjective: * Chief Complaints: * [...] mellitus with diabetic peripheral angiopathy without gangrene?Procedure: 74144-UYCA SKIN LESIONS, OVER 4 ?Procedure: N9964-YFQTTAWB DYSTROPHIC NAILS ANY # * Procedures:?Debride Nails 1-5:?Procedure:?Performance of this nail treatment by a nonprofessional would put this patients foot and overall health at risk. Therefore, nail debridement was performed extensively to reduce/remove overall nail length, girth, thickness, subungual debris, and necrotic tissue, by manual and/or electrical means through the use of a nail nipper and/or dremel-type grinder set up operator gear tool, to a more viable healthy nail plate or bed tissue 1-5. Silver nitrate used for any petechial bleeding as necessary. Definitive antifungal treatment options have been reviewed and discussed with the patient. The patient chooses, no pharmaceutical tx - 51610.?Keratoma Treatment:?Parring or Cutting of Benign Hyperkeratotic Lesion(s)?(-57) More than 4 Lesions - The Benign hyperkeratotic lesions, as described above were pared, and/or cut utilizing a sterile 15 blade, tissue nippers, and/or dremel - 27438 , Q8.?Nail Reduction:?Nail Reduction?(-27) Trimming of dystrophic nails performed to reduce/remove overall nail length and girth, by manual and electrical means with use of a nail nipper and/or dremel, to more viable healthy nail plate or bed tissue, any number - G0127 , Q8.? * Procedure Codes:?G0127 TIFFANIE ING DYSTROPHIC NAILS ANY #, Modifiers: XS , B423225 DEBRIDE NAIL, 1-5, Modifiers: XS 36130 TRIM SKIN LESIONS, OVER 4, Modifiers: XS [...]
--- OUTSIDE RECORDS SUMMARY | 2024-07-26 07:28 | XMS_ITS ---
Author Organization [facility] Address [address] [facility] [place] [address] Care Team Providers Care Power Technician Name Role Phone Monica Darby Primary Care Provider Unavailab Fabricio Granados Unavailable [phone] Allergies No Known Allergies REASON FOR VISIT [...] Ordered Date Performed Result Body Sit e 71802-WEGVIFE NAIL, 1-5 05/25/2024 N/A 49485-JERM SKIN LESIONS, OVER 4 05/25/2024 N/A S5660-JSWWMCWI DYSTROPHIC NAILS ANY # 05/25/2024 N/A Encounters Encounter Location Date Provider Diagnosis [facility] [address] [place] [address] 05/25/2024 Fabricio Juan Type 2 diabetes mellitus [...] INSTRUCTIONS.pdf) Pending Test Test Name Order Date 62900-LQFIUCY NAIL, 1-5 05/25/2024 47163-YJTI SKIN LESIONS, OVER 4 05/25/19 25 W7151-WRURQNOT DYSTROPHIC NAILS ANY # Next Appt Details Follow Up: prn, Reason: Provider Name:Fabricio Juan , 08/24/2024 02:45:00 PM, [address] [place] [address], [phone], Procedure Notes * Category Sub-Category Detail Notes [...] instrumentation by the physician of record - 98807, Q8 Debride Nails 1-5 Procedure: Due to [...] necessary to maintain effective symptomatic relief - 45790 Nail Reduction Nail Reduction (-27) Trimming o [...] Notes * Jesenia CASEYOB:1940 (83 yo M)Acc No.[id number]:05/25/2024 Progress Note Patient:?Jhonny CASEY Provider:?Fabricio Juan DPM :1940???Age:83 Y???Sex:Male Romel e:05/25/2024 Address:[address] [place] [address], [facility] Pcp:Monica Darby Subjective: * Chief Complaints: * [...] Worse (4)??? Plan: * Treatment: 2.?Tinea unguium?Procedure: 32065-MBJVUPH NAIL, 1-5 3.?Other hammer toe(s) (acqu ired), [...] necessary to maintain effective symptomatic relief - 75836.?Keratoma Treatment:?Parring or Cutting of Benign Hyperkeratotic Lesion(s)?(-57) [...] instrumentation by the physician of record - 48027, Q8.?Nail Reduction:?Nail Reduction?(-27) Trimming of all dystrophic [...] DYSTROPHIC NAILS ANY #, Modifiers: XS , D412558 DEBRIDE NAIL, 1-5, Modifiers: XS 76124 TRIM SKIN LESIONS, OVER 4, Modifiers: XS [...] Juan DPM Date:?2024 Generated for Danilo moreno/Kofi/Adrian on:?07/26/2024 07:27 AM [...] structure , No Charcot collapse/destruction noted at [facility] FOOTWEAR EVALUATION: worn, OT were inspe cted and noted to be severely worn , [...]
--- OUTSIDE RECORDS SUMMARY | 2024-07-26 07:28 | XMS_ITS | Clinical Summary ---
Author Organization [facility] Address [address] [place] [address] Care Team Providers Care Route Sales Representative Name Role Phone Monica Darby MD Primary [...] DAILY 3 Active Lancets (OneTouch Delica Plus Mykmns13L) misc USE TO CHECK SUGARS DAILY 3 [...] Diabetes: Visual Foot Exam 05/15/2022 Influenza Vaccine (Season Ended) 2024 Hepatitis B Vaccine Aged Out No longe r eligible based on patient's age to complete this topic Insurance [facility] Care Teams Route Sales Representative Relationship Specialty Start Date End Date Monica Darby MD [address] [place] [address] PCP - General Internal Medicine 05/14/22
[2024-07-26 11:15] LABS: Anion Gap 13 (12-20); Blood Urea Nitrogen 42 mg/dL (9-16); Calcium 9.3 mg/dL (8.4-10.2); Carbon Dioxide 24 mmol/L (22-29); Chloride 108 mmol/L (96-108); Estimated Glomerular Filt Rate 42; Glucose Random 147 mg/dL (60-115); Potassium 4.7 mmol/L (3.3-5.1); Sodium 140 mmol/L (135-145)
== END 2024-07-26 07:25 | disposition home or self-care (01) ==
LOC: HO.10HDL 07:24
PROVIDERS: Visit Provider Internal Medicine Hypertension Specialist
DX: N18.32 Chronic kidney disease, stage 3b (principal)
CPT/HCPCS: 36415; 80048

== ENCOUNTER 2024-07-28 12:55 | Outpatient (AMB) | payer MEDICARE, SELFPAY ==
[2024-07-28 13:21] VITALS: BP 130/62; PULSE 65; O2SAT 98; BMI 24.7
--- NOTE | 2024-07-28 13:21 | MHC.OFFVIS ---
Vital Signs 07/28/24 13:21 Height 5 ft 9 in Weight 167 lb 0.5 oz BMI 24.7 BP 130/62 Blood Pressure Location Lt brachial Position Sitting Pulse 65 Pulse Source Pulse Oximeter Pulse Oximetry (%) 98 Oxygen Delivery Method Room Air Intake Visit Reasons: COPD Intake Note: pt is here for follow up and states he is doing good. Vehicle Assembly Inspector Required: No Allergies No Known Allergies [No Known Allergies*] Allergy (Verified 07/28/24 13:38) Medication List - Last Reconciled 07/28/24 by Dov Luz MD albuterol sulfate 90 mcg/actuation (ProAir HFA) 2 puffs inhalation Q4-6H PRN 60 days Breo Ellipta 100-25 mcg/dose (fluticasone furoate-vilanterol) 1 inh inhalation DAILY 90 days NS calcium carbonate (Calcium 600) 600 mg PO DAILY cetirizine 10 mg PO DAILY cholecalciferol (vitamin D3) 50 mcg PO DAILY dorzolamide 2% 1 drp ophthalmic (eye) Q12H famotidine 40 mg PO DAILY PRN finasteride 5 mg PO DAILY 90 days fluticasone propionate 50 mcg/actuation (Flonase Allergy Relief) 1 spray intranasal BID PRN glipizide ER 5 mg PO DAILY guaifenesin ER (Mucinex) 600 mg PO DAILY ketorolac 0.5% 1 drp ophthalmic-Right TID lisinopril-hydrochlorothiazide 10-12.5 mg 1 tab PO DAILY loperamide 2 mg PO DAILY PRN pantoprazole 40 mg PO DAILY prednisolone acetate 1% 1 drp ophthalmic (eye) TID simvastatin 40 mg PO DAILY Do you need a note to return to daycare/school/sports/work: No HPI HPI COPD: Details: Jhonny is 83 years old, aging gracefully. He is here for 6 months follow-up for his COPD. COPD remains very stable and well controlled. The only complaint that he had was increased co-payment as compared to last year. He has only mild intermittent cough. His walking a generally slow, he denies shortness of breath with exertion. [facility] Medical History Cough Hypersomnia Stroke COPD exacerbation COPD (chronic obstructive pulmonary disease) Allergic rhinitis Surgical History Hx of cataract surgery (~09/2023) S/P tonsillectomy and adenoidectomy Hx of cholecystectomy History of appendectomy Family History Mother No problems noted. Father Heart disease Social History Alcohol intake: former Patient Tobacco Use Status: Former Tobacco user Years Smoked: 40 +/- Review of Systems Const All systems reviewed & are unremarkable except as noted in HPI and below Eyes Reports no additional complaints ENT Denies vertigo, Denies dizziness and Reports nasal congestion (Mild intermittent) Card Denies chest pain, Denies irregular heart rhythm and Denies leg edema Resp Reports as per HPI GI Reports no additional complaints Reports no additional complaints Musc Reports no additional complaints Skin/Breast Reports system reviewed and no additional complaints, except as documented Neuro Denies vertigo and Denies dizziness Psych Reports no additional complaints Endo Reports no additional complaints Physical Exam Vital Signs: Last Vital Signs Pulse 65 07/28/24 13:21 BP 130/62 07/28/24 13:21 Pulse Ox 98 07/28/24 13:21 Oxygen Delivery Method Room Air 07/28/24 13:21 BMI result Body Mass Index 24.7 Const General: healthy appearing, comfortable, no acute distress, alert and awake Orientation/consciousness: patient oriented x3 HEENT Head: Yes normal to inspection General nose exam: No nasal polyps present and No nasal discharge present Face and sinus: Yes sinuses nontender Mouth: oropharynx normal Throat: Yes posterior oropharynx normal (There is some a whitish mucus in the nasopharynx) Eyes General: appearance normal, both eyes and all related structures Neck Neck: Yes normal visual inspection, Yes no lymphadenopathy, Yes trachea midline and Yes no JVD Thyroid: Thyroid normal Chest Chest palpation & inspection: normal inspection of the chest, normal palpation of entire chest wall and no tenderness Resp Other: Percussion note resonant, breath sounds are distant with prolonged expiratory phase. But both lungs are clear without wheezes crepitations or rhonchi . Cardio Palpation: normal PMI Rate: regular rate Rhythm: regular rhythm Heart sounds: no gallops and no murmurs Peripheral pulses: Peripheral pulses 2+ throughout GI Palpation (GI): Soft to palpation, nontender, No hepatosplenomegaly present and no masses Auscultation: normal bowel sounds Back/Spine/Pelvis Thoracic/Lumbar Spine: thoracic and lumbar spine normal to inspection and thoraco-lumbar ROM limited Skin General skin exam: no rashes or lesions noted Neuro General: patient oriented x3 and no focal motor deficits Cranial nerves: Yes CN's II-XII intact bilaterally Extrem General: Yes normal to inspection, Yes no clubbing, cyanosis or edema and Yes no calf tenderness Psych Appearance: grossly normal and well kempt Speech and movement: Normal speech and movement present Assessment & Plan Assessment & Plan (1) COPD (chronic obstructive pulmonary disease): Comment: COPD WITH ELEMENT OF MILD ASTHMA, IS CHRONIC AND REMAINS WELL CONTROLLED AND STABLE. THERE HAS BEEN NO ACUTE EXACERBATION IN THE LAST 6 MONTHS. Code(s): J44.9 - Chronic obstructive pulmonary disease, unspecified Category: Medical Plan: CONTINUE BREO ELLIPTA 100-25 1 INHALATION DAILY. I TOLD HIM THAT OUT OF ALL THE OTHER AGENTS FOR TREATMENT OF COPD THIS SEEMS TO BE BEST FOR HIM. ALBUTEROL HFA 2 PUFFS Q 6 HOURS ONLY P.R.N. (2) Cough: Comment: HE HAS CHRONIC COUGH ASSOCIATED WITH HIS COPD AND ALLERGIC RHINITIS. CURRENTLY IT IS MILD AND STABLE. HE DOES NOT NEED TO USE ANY COUGH MEDICINE. Code(s): R05.9 - Cough, unspecified Category: Medical Plan: EXPLAINED TO THE PATIENT AND REASSURED (3) Allergic rhinitis: Comment: CHRONIC ,MILD TO MODERATE , REMAINS WELL CONTROLLED . BUT DOES RESULT IN CHRONIC POSTNASAL DISCHARGE Code(s): J30.9 - Allergic rhinitis, unspecified Category: Medical Plan: MOST OF THE TIME HE DOES NOT NEED TO USE ANY MEDICATION EXCEPT CETIRIZINE 10 MG ONCE A DAY P.R.N. Coding Level of Care Code Est Pt Level 3 (11243) Diagnoses COPD (chronic obstructive pulmonary disease) J44.9 Cough R05.9 Allergic rhinitis J30.9
--- OUTSIDE RECORDS SUMMARY | 2024-07-28 15:00 | XMS_ITS ---
Author Organization [facility] Address [address] [place] [address] Care Team Providers Care Diving Fisher Name Role Phone Monica Darby Primary Care Provider Unavailab Fabricio Granados Unavailable [phone] Allergies No Known Allergies REASON FOR VISIT [...] Ordered Date Performed Result Body Sit e 78564-GKWBBUL NAIL, 1-02/24/2024 N/A 37390-MYZT SKIN LESIONS, OVER 4 02/24/2024 N/A N7098-AEXJQQSN DYSTROPHIC NAILS ANY # 02/24/2024 N/A Encounters Encounter Location Date Provider Diagnosis [facility] [address] [address] 02/24/2024 Fabricio Juan Type 2 diabetes mellitus [...] Treatment Pending Test Test Name Order Date 56341-VXICAOW NAIL, 1-5 02/24/2024 60251-JXXA SKIN LESIONS, OVER 4 02/24/20 24 G6944-RBPLQLNM DYSTROPHIC NAILS ANY # Next Appt Details Follow Up: prn, Reason: Provider Name:Fabricio Juan , 08/24/2024 02:45:00 PM, [address] [place], [address], Procedure Notes * Category Sub-Category Detail Notes Keratoma Treatment Parring or Cutting o f Benign Hyperkeratotic Lesion(s) (-57) More than 4 Lesions - The Benign hyperkeratotic lesions, as described above were pared, and/or cut utilizing a sterile 15 blade, tissue nippers, and/or dremel - 84765 , Q8 Debride Nails 1-5 Procedure: Performance of this nail treatment by a nonprofessional would put this patients foot and overall health at risk. Therefore, nail debridement was performed extensively to reduce/remove overall nail length, girth, thickness, subungual debris, and necrotic tissue, by manual and/or electrical means through the use of a nail nipper and/or dremel-type crystal grinder, to a more viable healthy nail plate or bed tissue 1-5. Silver nitrate used for any petechial bleeding as necessary. Definitive antifungal treatment options have been reviewed and discussed with the patient. The patient chooses, no pharmaceutical tx - 35576 Nail Reduction Nail Reduction (-27) Trimming o f dystrophic nails performed to reduce/remove overall nail length and girth, by manual and electrical means with use of a nail nipper and/or dremel, to more viable healthy nail plate or bed tissue, any number - G0127 , Q8 Progress Notes * Jesenia CASEYOB:1940 (83 yo M)Acc No.[id number]:02/24/2024 Progress Note Patient:?Fady Jhonny Provider:?Fabricio Juan DPM :1940???Age:83 Y???Sex:Male Romel e:02/24/2024 Address:[address] [place] [address] [id number] Pcp:Monica Darby Subjective: * Chief Complaints: * [...] mellitus with diabetic peripheral angiopathy without gangrene?Procedure: 14580-HTBT SKIN LESIONS, OVER 4 ?Procedure: Q8718-IXRACOBB DYSTROPHIC NAILS ANY # * Procedures:?Debride Nails 1-5:?Procedure:?Performance of this nail treatment by a nonprofessional would put this patients foot and overall health at risk. Therefore, nail debridement was performed extensively to reduce/remove overall nail length, girth, thickness, subungual debris, and necrotic tissue, by manual and/or electrical means through the use of a nail nipper and/or dremel-type crystal grinder, to a more viable healthy nail plate or bed tissue 1-5. Silver nitrate used for any petechial bleeding as necessary. Definitive antifungal treatment options have been reviewed and discussed with the patient. The patient chooses, no pharmaceutical tx - 03161.?Keratoma Treatment:?Parring or Cutting of Benign Hyperkeratotic Lesion(s)?(-57) More than 4 Lesions - The Benign hyperkeratotic lesions, as described above were pared, and/or cut utilizing a sterile 15 blade, tissue nippers, and/or dremel - 23344 , Q8.?Nail Reduction:?Nail Reduction?(-27) Trimming of dystrophic nails performed to reduce/remove overall nail length and girth, by manual and electrical means with use of a nail nipper and/or dremel, to more viable healthy nail plate or bed tissue, any number - G0127 , Q8.? * Procedure Codes:?G0127 TIFFANIE ING DYSTROPHIC NAILS ANY #, Modifiers: XS , [id number] DEBRIDE NAIL, 1-5, Modifiers: XS 50690 TRIM SKIN LESIONS, OVER 4, Modifiers: XS [...] Juan DPM Date:?2023 Generated for Danilo moreno/Kofi/Adrian on:?07/28/2024 03:00 PM EDT History and Physical Notes * [...]
--- OUTSIDE RECORDS SUMMARY | 2024-07-28 15:00 | XMS_ITS ---
Author Organization [facility] Address [address] [place] [address] Care Team Providers Care Special Needs Tutor Name Role Phone Monica Darby Primary Care Provider Unavailab Julio Cesar Vides [phone] REASON FOR VISIT PLEASE LOCK NOTE FROM 04-27-24 Encounters Encounter Location Date Provider Diagnosis [facility] [address] [place] [address] 07/13/2024 Julio Cesar Chaparro Plan Of Treatment No Information Progress Notes * RONALD CASEYOB:1940 (83 yo M)Acc No.[id number]:07/13/2024 Patient:?LOPEZ CASEY :1940???Age:83 Y???Sex:Male Address:[address] [place] [address], [address] * true * Date:? Generated for Danilo moreno/Kofi/eTransmitting on:?07/28/2024 02:59 PM EDT
--- OUTSIDE RECORDS SUMMARY | 2024-07-28 15:00 | XMS_ITS | Clinical Summary ---
Author Organization [facility] Address [address] [place] [address] Care Team Providers Care Brimming Machine Operator Name Role Phone Monica Darby MD Primary [...] DAILY 3 Active Lancets (OneTouch Delica Plus [id number]) misc USE TO CHECK SUGARS DAILY 3 [...] [facility] Care Teams Brimming Machine Operator Relationship Specialty Start Date End Date Monica Darby MD [address] [place] [address] PCP - General Internal Medicine 05/14/22
--- OUTSIDE RECORDS SUMMARY | 2024-07-28 15:00 | XMS_ITS ---
Author Organization [facility] Address [address] [facility] [place] [address] Care Team Providers Care Brick Picker Name Role Phone Monica Darby Primary Care Provider Unavailab Fabricio Granados Unavailable [phone] Allergies No Known Allergies REASON FOR VISIT [...] Ordered Date Performed Result Body Sit e 15627-RKLOLYW NAIL, 1-5 11/21/2023 N/A 17120-MPZQ SKIN LESIONS, OVER 4 11/21/2023 N/A C4961-IMHJMMUJ DYSTROPHIC NAILS ANY # 11/21/2023 N/A Encounters Encounter Location Date Provider Diagnosis [facility] [address] [address] 11/21/2023 Fabricio Juan Type 2 diabetes mellitus [...] days Pending Test Test Name Order Date 68211-XHNKOLI NAIL, 1-5 11/21/2023 61110-JCED SKIN LESIONS, OVER 4 11/21/19 24 G7380-EJOABQLS DYSTROPHIC NAILS ANY # Next Appt Details Follow Up: prn, Reason: Provider Name:Fabricio Juan , 08/24/2024 02:45:00 PM, [address] [place], [address], Procedure Notes * Category Sub-Category Detail Notes Keratoma Treatment Parring or Cutting o f Benign Hyperkeratotic Lesion(s) 51044 ( >4 Lesions) - The Benign hyperkeratotic [...] as necessary. Patient chooses, no pharmaceutical tx (06285) Nail Reduction Nail Reduction Trimming of dyst rophic nails performed to reduce/remove overall nail length and girth, by manual and electrical means with use of a nail nipper and/or dremel, to more viable healthy nail plate or bed tissue 6-10 (W3393-P7) Progress Notes * Jesenia CASEYOB:1940 (83 yo M)Acc No.[id number]:11/21/2023 Progress Note Patient:?Jhonny CASEY Provider:?Fabricio Juan DPM :1940???Age:83 Y???Sex:Male Romel e:11/21/2023 Address:[address] [place] [address] [id number] Pcp:Monica Darby Subjective: * Chief Complaints: * [...] mellitus with diabetic peripheral angiopathy without gangrene?Procedure: 48040-XSDH SKIN LESIONS, OVER 4 ?Procedure: H0514-SZPULKCG DYSTROPHIC NAILS ANY # 3.?Xerosis of skin? [...] as necessary. Patient chooses, no pharmaceutical tx (19294).?Keratoma Treatment:?Parring or Cutting of Benign Hyperkeratotic Lesion(s)?40506 ( >4 Lesions) - The Benign hyperkeratotic [...] DYSTROPHIC NAILS ANY #, Modifiers: XS , J010474 DEBRIDE NAIL, 1-5, Modifiers: XS 29626 TRIM SKIN LESIONS, OVER 4, Modifiers: XS [...] DPM Date:?2023 Generated for Danilo moreno/Kofi/Adrian on:?07/28/2024 02:59 PM EDT History and Physical Notes * [...]
--- OUTSIDE RECORDS SUMMARY | 2024-07-28 15:00 | XMS_ITS | Clinical Summary ---
Author Organization [facility] Address [address] [place] [address] Care Team Providers Care Filler Shredder Helper Name Role Phone Unavailable Primary Care Provider [...] age to complete this topic Meningococcal B Vaccine Aged Out No l onger eligible based on patient's age to complete this topic RSV Immunization Patients Un aicha 20 months Aged Out No longer eligible b ased on patient's age to complete this topic Varicella Vaccines Aged Out No longer eligible based on patient's age to complete this topic
--- OUTSIDE RECORDS SUMMARY | 2024-07-28 15:00 | XMS_ITS ---
Author Organization [facility] Address [address] [facility] [place] [address] Care Team Providers Care Commercial Baking Teacher Name Role Phone Monica Darby Primary Care Provider Unavailab Fabricio Granados Unavailable [phone] Allergies No Known Allergies REASON FOR VISIT [...] Ordered Date Performed Result Body Sit e 37351-TJDZYJZ NAIL, 1-5 05/25/2024 N/A 44571-JBVQ SKIN LESIONS, OVER 4 05/25/2024 N/A H2633-WPJGDKYP DYSTROPHIC NAILS ANY # 05/25/2024 N/A Encounters Encounter Location Date Provider Diagnosis [facility] [place] [address] [place] [address] 05/25/2024 Fabricio Juan Type 2 diabetes mellitus [...] INSTRUCTIONS.pdf) Pending Test Test Name Order Date 03307-RGBMCOS NAIL, 1-5 05/25/2024 16989-CPOO SKIN LESIONS, OVER 4 05/25/19 25 V2154-YNKYDFNO DYSTROPHIC NAILS ANY # Next Appt Details Follow Up: prn, Reason: Provider Name:Fabricio Juan , 08/24/2024 02:45:00 PM, [address] [place] [address], [address], Procedure Notes * Category Sub-Category Detail Notes [...] instrumentation by the physician of record - 59681, Q8 Debride Nails 1-5 Procedure: Due to [...] necessary to maintain effective symptomatic relief - 15559 Nail Reduction Nail Reduction (-27) Trimming o [...] Notes * Jesenia CASEYOB:1940 (83 yo M)Acc No.[id number]:05/25/2024 Progress Note Patient:?Jhonny CASEY Provider:?Fabricio Juan DPM :1940???Age:83 Y???Sex:Male Romel e:05/25/2024 Address:[address] [place] [address], [facility] Pcp:Monica Darby Subjective: * Chief Complaints: * [...] Worse (4)??? Plan: * Treatment: 2.?Tinea unguium?Procedure: 02144-BOHYQTS NAIL, 1-5 3.?Other hammer toe(s) (acqu ired), [...] necessary to maintain effective symptomatic relief - 86094.?Keratoma Treatment:?Parring or Cutting of Benign Hyperkeratotic Lesion(s)?(-57) [...] instrumentation by the physician of record - 17523, Q8.?Nail Reduction:?Nail Reduction?(-27) Trimming of all dystrophic [...] DYSTROPHIC NAILS ANY #, Modifiers: XS , L971680 DEBRIDE NAIL, 1-5, Modifiers: XS 57478 TRIM SKIN LESIONS, OVER 4, Modifiers: XS [...] Juan DPM Date:?2024 Generated for Danilo moreno/Kofi/Adrian on:?07/28/2024 03:00 PM [...] structure , No Charcot collapse/destruction noted at [facility] FOOTWEAR EVALUATION: worn, OT were [...]
--- OUTSIDE RECORDS SUMMARY | 2024-07-28 15:00 | XMS_ITS | Patient Health Record ---
Author Organization [facility] Address [address] [facility] [place] [address] Care Team Providers Care Used Car Make Ready Worker Name Role Phone Monica Darby Primary Care Provider Unavailab Fabricio Granados Unavailable [phone] Allergies No Known Allergies Results Component Value [...] Referring Provider Last Name Wilner [facility] Referred Provider Fabricio Juan [facility] [address] [facility], [place],[address], Referred Provider Specialty Podiatry Referral Priority Routine [...] Problem Acquired hammer toe of right foot (79975946779956 05) Other hammer toe(s) (acquired), right foot (M20.41) Active confirmed Problem Acquired hammer toe of left foot (42607522734025 03) Other hammer toe(s) (acquired), left foot (M20.42) Active confirmed Problem Type 2 diabetes mellitus with peripheral angiopathy (962765569) 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.51) Active confirmed Vital Signs Blood pressure diastolic 80 mm Hg 05/25/2024 Height 5 ft 6 in in 05/25/2024 Blood pressure systolic 120 mm Hg 05/25/2024 Weight 160 lbs 05/25/2024 BMI 25.82 kg/m2 05/25/2024 Procedures Procedure Date Ordered Date Performed Result Body Sit e 01456-DIFLJHE NAIL, 1-5 11/21/2023 N/A 79398-KETK SKIN LESIONS, OVER 4 11/21/2023 N/A F6584-KLMMRARM DYSTROPHIC NAILS ANY # 11/21/2023 N/A 19897-IOMWWFW NAIL, 1-5 02/24/2024 N/A 85094-MUHP SKIN LESIONS, OVER 4 02/24/2024 N/A I9396-PNLGQPQU DYSTROPHIC NAILS ANY # 02/24/2024 N/A 15624-ZGFRGTA NAIL, 1-5 05/25/2024 N/A 82784-CPFR SKIN LESIONS, OVER 4 05/25/2024 N/A Q1232-ZJOFLAQG DYSTROPHIC NAILS ANY # 05/25/2024 N/A Encounters Encounter Location Date Provider Diagnosis [address] [address] 11/21/2023 Fabricio Yessica Type 2 diabetes mellitus with diabetic peripheral angiopathy without gangrene E11.51 ; Tinea unguium B35.1 ; Pain in right toe(s) M79.674 ; Pain in left toe(s) M79.675 and Xerosis of skin L85.[address] [address] 02/24/2024 Fabricio Parrunier Type 2 diabetes mellitus with diabetic peripheral angiopathy without gangrene E11.51 ; Tinea unguium B35.1 ; Pain in right toe(s) M79.674 ; Pain in left toe(s) M79.675 and Xerosis of skin L85.[address] [address] 05/25/2024 Fabriciomariposa ParrYessica Type 2 diabetes mellitus [...] X ray : Foot, left 3V 02/06/2022 65152-MCVUOAR NAIL, 1-5 05/07/2022 86448-CEXFJHX NAIL, 1-5 01/21/2022 11055-DVNJVIM NAIL, 1-5 08/13/2022 43196-DQMLSZU NAIL, 1-5 11/12/2022 94341-LPTJAEA NAIL, 1-5 02/04/2023 53897-ZLHLBIO NAIL, 1-5 06/13/2023 22414-VOHEOVL NAIL, 1-5 11/21/2023 32935-SBWEOPJ NAIL, 1-5 02/24/2024 69763-SNGAUML NAIL, 1-5 05/25/2024 20049-Qwve Destruction, 1-14 02/04/2023 01327-Kges Destruction, 1-14 11/12/2022 84333-Vmbs Destruction, 1-14 08/13/2022 36588-Ctov Destruction, -14 01/21/2022 13663-Kisb Destruction, -14 05/07/2022 75625-UABY SKIN LESIONS, OVER 4 05/07/19 23 30095-RBKC SKIN LESIONS, OVER 4 01/22/20 22 29100-YZZS SKIN LESIONS, OVER 4 08/14/19 23 28816-BRZO SKIN LESIONS, OVER 4 11/13/19 23 65199-KKFU SKIN LESIONS, OVER 4 02/05/20 23 43194-PBKF SKIN LESIONS, OVER 4 11/21/19 24 71669-WSKB SKIN LESIONS, OVER 4 06/13/19 24 23247-ZAGH SKIN LESIONS, OVER 4 05/25/19 25 62583-AAYB SKIN LESIONS, OVER 4 02/24/20 24 J3814-AHUMDRPH DYSTROPHIC NAILS ANY # W1600-PSQGRGRJ DYSTROPHIC NAILS ANY # T0857-EIRCGVJX DYSTROPHIC NAILS ANY # T6274-CIKXWSXG DYSTROPHIC NAILS ANY # Y7450-IDYYVFLO DYSTROPHIC NAILS ANY # T4939-KOOICFSR DYSTROPHIC NAILS ANY # A6193-VKNQSQFB DYSTROPHIC NAILS ANY F7865-PJCVOUYO DYSTROPHIC NAILS ANY # S6060-JFBBCLRS DYSTROPHIC NAILS ANY # Next Appt Details Provider Name:Fabricio Juan , 08/24/2024 02:45:00 PM, [address] [facility], [place], [address], Insurance Providers Payer Name Payer Address Payer Phone Subscriber Number Group Number Insured Name Patient Relationship to Insured Coverage Start Date Coverage End Date [employer] Medicare Preferred [address] [place] [phone] [id number] Jhonny Shrestha Self - patient is the insured Medical (General) History Medical History History ICD Code asthma Diabetic type ll Lung disease Parkinsons disease Stroke Chicken pox COPD Colon CA Hypercholesterolemia Hypertension Surgical History Surgery Date(Month/Year) appendectomy gall bladder cataract surgery Hospitalization History Reason Date(Month/Year) Ultrasound both legs for veins 2021
--- OUTSIDE RECORDS SUMMARY | 2024-07-28 15:01 | XMS_ITS | Patient Health Record ---
Author Organization [facility] Address [address] [facility] [address] [place] [address] Care Team Providers Care Civil Preparedness Coordinator Name Role Phone Monica Darby Primary Care Provider UnavailJulio Cesar Ba Unavailable [phone] Allergies No Known Allergies Reason For Referral Referring Provider First Name Monica Referring Provider Last Name Wilner Referring Provider Speciality Internal M edicine Referred Organization 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) Active confirmed Problem 84171429 Diarrhea, unspecified type (R19.7) Active confirmed Problem 715036764 Angiodysplasia o f stomach (K31.819) Active confirmed Vital Signs Blood pressure diastolic 00 mm Hg 04/27/2024 Height 69 in 04/27/2024 Blood pressure systolic 00 mm Hg 04/27/2024 Weight 166 lbs 04/27/2024 BMI 24.51 kg/m2 04/27/2024 Encounters Encounter Location Date Provider Diagnosis [facility] [address] [place] [address] 04/27/2024 Julio Cesar Chaparro Diarrhea, unspecifie d type R19.7 and Iron deficiency anemia due to chronic blood loss D50.0 [facility] [address] [place] [address] 07/13/2024 Julio Cesar Chaparro Assessments Encounter Date [...] MEDICARE PREFERRED [address] [place] [phone] [id number] LOPEZ CAESY Self - patient is the insured Medical (General) History Medical History History ICD Code Strokes--sees Dr. Johnson MCDONALDDM Hypertension Asthma COPD Denies NE,renal disease Iron [...]
== END 2024-07-28 13:57 | disposition home or self-care (01) ==
LOC: HO.HPS 12:56
PROVIDERS: PCP Internal Medicine; Visit Provider Internal Medicine
DX: J44.9 Chronic obstructive pulmonary disease, unspecified (principal); R05.9 Cough, unspecified; J30.9 Allergic rhinitis, unspecified
CPT/HCPCS: 99213

== ENCOUNTER → 2024-07-28 12:55 | Outpatient (BNVA) | payer MEDICARE, SELFPAY | PROVIDERS: PCP Internal Medicine; Visit Provider Internal Medicine | DX: J44.9 Chronic obstructive pulmonary disease, unspecified (principal); J30.9 Allergic rhinitis, unspecified | CPT/HCPCS: 99212 ==

== ENCOUNTER 2024-08-03 09:39 | Outpatient (AMB) | payer MEDICARE, SELFPAY ==
--- NOTE | 2024-08-03 09:37 | HO.NEPHOV ---
Vital Signs 08/03/24 09:38 Height 5 ft 9 in Weight 164 lb 8 oz BMI 24.3 BP 134/62 Blood Pressure Location Rt brachial Position Sitting Pulse 99 Pulse Source Pulse Oximeter Pulse Oximetry (%) 94 Oxygen Delivery Method Room Air Intake Visit Reasons: CKD/ Conf Allergies No Known Allergies [No Known Allergies*] Allergy (Verified 08/03/24 09:37) Medication List - Last Reconciled 08/03/24 by Clive Boykin MD albuterol sulfate 90 mcg/actuation (ProAir HFA) 2 puffs inhalation Q4-6H PRN 60 days Breo Ellipta 100-25 mcg/dose (fluticasone furoate-vilanterol) 1 inh inhalation DAILY 90 days NS calcium carbonate (Calcium 600) 600 mg PO DAILY cetirizine 10 mg PO DAILY cholecalciferol (vitamin D3) 50 mcg PO DAILY dorzolamide 2% 1 drp ophthalmic (eye) Q12H famotidine 40 mg PO DAILY PRN finasteride 5 mg PO DAILY 90 days fluticasone propionate 50 mcg/actuation (Flonase Allergy Relief) 1 spray intranasal BID PRN glipizide ER 5 mg PO DAILY guaifenesin ER (Mucinex) 600 mg PO DAILY lisinopril-hydrochlorothiazide 10-12.5 mg 1 tab PO DAILY loperamide 2 mg PO DAILY PRN pantoprazole 40 mg PO DAILY simvastatin 40 mg PO DAILY HPI Comments Details: 83-year-old man with a history of longstanding hypertension and diabetes mellitus with CKD 3. He has a history of hyperkalemia back in April 2022. This was treated medically. He was using salt substitute while he was on lisinopril. Lisinopril was placed on hold and restarted again. Over the last few months serum potassium has been in the normal range. Baseline serum creatinine is around 1.5 mg/dL. He has a history of prostate cancer and is being followed by Dr. Beatty. He has a history of for shortness of breath on exertion. Seen by Dr. Ornelas. Echocardiogram was unremarkable. s/p stress test Also has history of COPD. Being followed by Dr. Luz He was scheduled for his sleep evaluation but never underwent. 11/09: Accompanied by son - Art;Had eye surgery 03/08/24 Overall doing well. No urinary sypmtoms. 08/03/24 _ No new issues PFSH Medical History Cough Hypersomnia Stroke COPD exacerbation COPD (chronic obstructive pulmonary disease) Allergic rhinitis Surgical History Hx of cataract surgery (~09/2023) S/P tonsillectomy and adenoidectomy Hx of cholecystectomy History of appendectomy Family History Mother No problems noted. Father Heart disease Social History Alcohol intake: former Patient Tobacco Use Status: Former Tobacco user Years Smoked: 40 +/- Physical Exam Vital Signs: Last Vital Signs Pulse 99 08/03/24 09:38 BP 134/62 08/03/24 09:38 Pulse Ox 94 08/03/24 09:38 Oxygen Delivery Method Room Air 08/03/24 09:38 BMI result Body Mass Index 24.3 Neck Neck: Yes supple Resp Auscultation: clear to auscultation bilaterally Cardio Palpation: no palpable S3 Heart sounds: no rubs GI Palpation (GI): Soft to palpation Auscultation: normal bowel sounds Neuro Motor exam (neuro): no asterixis Results Reviewed Nephrology Results: Sodium 140 mmol/L (135-145) 07/26/24 Potassium 4.7 mmol/L (3.3-5.1) 07/26/24 Chloride 108 mmol/L (96-108) 07/26/24 Carbon Dioxide 24 mmol/L (22-29) 07/26/24 BUN 42 mg/dL (9-16) H 07/26/24 Creatinine 1.57 mg/dL (0.5-1.4) H 07/26/24 Calcium 9.3 mg/dL (8.4-10.2) 07/26/24 Assessment & Plan Assessment & Plan (1) CKD (chronic kidney disease) stage 3, GFR 30-59 ml/min: Code(s): N18.30 - Chronic kidney disease, stage 3 unspecified Category: Medical Qualifiers: Chronic kidney disease stage 3 subtype: stage 3b (GFR 30-44) Qualified Code(s): N18.32 - Chronic kidney disease, stage 3b Plan: CKD in the setting of longstanding hypertension and diabetes mellitus. Renal function is close to baseline. He has stage IIIB CKD. Goal is to slow the progression of renal disease. Continue to avoid nephrotoxic agents including NSAIDs. Encouraged to stay on low-sodium diet. He will benefit from a SGLT 2 inhibitor (2) SOB (shortness of breath) on exertion: Code(s): R06.02 - Shortness of breath Category: Medical Plan: Multifactorial. Being evaluated and followed by Cardiology and Pulmonary at this time. (3) Hyperkalemia: Code(s): E87.5 - Hyperkalemia Category: Medical Plan: In a setting of CKD. He should stay on low-potassium diet. Avoid salt substitutes. Closely monitor serum potassium periodically. K is in the normal range at present Orders: Orders Comprehensive Met. Panel 4 Months N18.32 - Chronic kidney disease, stage 3b Coding Level of Care Code Est Pt Level 4 (85077) Diagnoses Stage 3b chronic kidney disease N18.32 Chronic kidney disease stage 3 subtype: stage 3b (GFR 30-44) SOB (shortness of breath) on exertion R06.02 Hyperkalemia E87.5
[2024-08-03 09:38] VITALS: BP 134/62; PULSE 99; O2SAT 94; BMI 24.3
--- OUTSIDE RECORDS SUMMARY | 2024-08-03 10:53 | XMS_ITS ---
Author Organization [facility] Address [address] [place] [address] Care Team Providers Care Supervisor Uranium Processing Name Role Phone Monica Darby Primary Care Provider Unavailab Julio Cesar Vides [phone] REASON FOR VISIT PLEASE LOCK NOTE FROM 04-27-24 Encounters Encounter Location Date Provider Diagnosis [facility] [address] [place] [address] 07/13/2024 Julio Cesar Chaparro Plan Of Treatment No Information Progress Notes * RONALD CASEYOB:1940 (83 yo M)Acc No.[id number]:07/13/2024 Patient:?LOPEZ CASEY :1940???Age:83 Y???Sex:Male Address:[address] [place] [address], [address] * true * Date:? Generated for Danilo moreno/Kofi/eTransmitting on:?08/03/2024 10:53 AM EDT
--- OUTSIDE RECORDS SUMMARY | 2024-08-03 10:53 | XMS_ITS ---
Author Organization [facility] Address [address] [facility] [place] [address] Care Team Providers Care Hardwood Sawyer Name Role Phone Monica Darby Primary Care Provider Unavailab Fabricio Granados Unavailable [phone] Allergies No Known Allergies REASON FOR VISIT [...] Ordered Date Performed Result Body Sit e 99377-NQEIAPA NAIL, 1-5 11/21/2023 N/A 86586-WQUO SKIN LESIONS, OVER 4 11/21/2023 N/A K8343-LFNYOECQ DYSTROPHIC NAILS ANY # 11/21/2023 N/A Encounters Encounter Location Date Provider Diagnosis [facility] [address] [address] 11/21/2023 Fabricio Juan Type 2 diabetes mellitus [...] days Pending Test Test Name Order Date 50860-DCWKARQ NAIL, 1-5 11/21/2023 59769-UMOT SKIN LESIONS, OVER 4 11/21/19 24 S0877-DKXDUPUI DYSTROPHIC NAILS ANY # Next Appt Details Follow Up: prn, Reason: Provider Name:Fabricio Juan , 08/24/2024 02:45:00 PM, [address] [place], [address], Procedure Notes * Category Sub-Category Detail Notes Keratoma Treatment Parring or Cutting o f Benign Hyperkeratotic Lesion(s) 64572 ( >4 Lesions) - The Benign hyperkeratotic [...] as necessary. Patient chooses, no pharmaceutical tx (37962) Nail Reduction Nail Reduction Trimming of dyst rophic nails performed to reduce/remove overall nail length and girth, by manual and electrical means with use of a nail nipper and/or dremel, to more viable healthy nail plate or bed tissue 6-10 (K9373-L2) Progress Notes * Jesenia CASEYOB:1940 (83 yo M)Acc No.[id number]:11/21/2023 Progress Note Patient:?Jhonny CASEY Provider:?Fabricio Juan DPM :1940???Age:83 Y???Sex:Male Romel e:11/21/2023 Address:[address] [place] [address] [place] Pcp:Monica Darby Subjective: * Chief Complaints: * [...] mellitus with diabetic peripheral angiopathy without gangrene?Procedure: 42574-TWPA SKIN LESIONS, OVER 4 ?Procedure: Q9666-DRBTGBHG DYSTROPHIC NAILS ANY # 3.?Xerosis of skin? [...] as necessary. Patient chooses, no pharmaceutical tx (57913).?Keratoma Treatment:?Parring or Cutting of Benign Hyperkeratotic Lesion(s)?03537 ( >4 Lesions) - The Benign hyperkeratotic [...] DYSTROPHIC NAILS ANY #, Modifiers: XS , [id number] DEBRIDE NAIL, 1-5, Modifiers: XS 21230 TRIM SKIN LESIONS, OVER 4, Modifiers: XS [...] Juan DPM Date:?2023 Generated for Danilo moreno/Kofi/Adrian on:?08/03/2024 10:53 AM EDT History and Physical Notes * [...]
--- OUTSIDE RECORDS SUMMARY | 2024-08-03 10:54 | XMS_ITS ---
Author Organization [facility] Address [address] [facility] [address] Care Team Providers Care Clicking Machine Operator Name Role Phone Monica Darby Primary Care Provider Unavailab Fabricio Granados Unavailable [phone] Allergies No Known Allergies REASON FOR VISIT [...] Ordered Date Performed Result Body Sit e 35123-WNGXHHI NAIL, 1-5 05/25/2024 N/A 48150-RGTQ SKIN LESIONS, OVER 4 05/25/2024 N/A P9698-CLOSANFT DYSTROPHIC NAILS ANY # 05/25/2024 N/A Encounters Encounter Location Date Provider Diagnosis [facility] [address] [place] [address] 05/25/2024 Fabricio Juan Type 2 diabetes mellitus [...] INSTRUCTIONS.pdf) Pending Test Test Name Order Date 13070-ZXBYFKL NAIL, 1-5 05/25/2024 66880-XFWK SKIN LESIONS, OVER 4 05/25/19 25 N3785-NOJVVKUG DYSTROPHIC NAILS ANY # Next Appt Details Follow Up: prn, Reason: Provider Name:Fabricio Juan , 08/24/2024 02:45:00 PM, [address] [place] [address], [address], Procedure Notes * Category Sub-Category Detail Notes [...] instrumentation by the physician of record - 33050, Q8 Debride Nails 1-5 Procedure: Due to [...] necessary to maintain effective symptomatic relief - 36945 Nail Reduction Nail Reduction (-27) Trimming o [...] Notes * Jesenia CASEYOB:1940 (83 yo M)Acc No.[id number]:05/25/2024 Progress Note Patient:?Jhonny CASEY Provider:?Fabricio Juan DPM :1940???Age:83 Y???Sex:Male Romel e:05/25/2024 Address:[address] [place] [address], [facility] Pcp:Monica Darby Subjective: * Chief Complaints: * [...] Worse (4)??? Plan: * Treatment: 2.?Tinea unguium?Procedure: 09466-AGPZREY NAIL, 1-5 3.?Other hammer toe(s) (acqu ired), [...] necessary to maintain effective symptomatic relief - 16909.?Keratoma Treatment:?Parring or Cutting of Benign Hyperkeratotic Lesion(s)?(-57) [...] instrumentation by the physician of record - 22853, Q8.?Nail Reduction:?Nail Reduction?(-27) Trimming of all dystrophic [...] DYSTROPHIC NAILS ANY #, Modifiers: XS , [id number] DEBRIDE NAIL, 1-5, Modifiers: XS 03385 TRIM SKIN LESIONS, OVER 4, Modifiers: XS [...] Juan DPM Date:?2024 Generated for Danilo moreno/Kofi/Adrian on:?08/03/2024 10:54 AM EDT History and Physical Notes * [...] structure , No Charcot collapse/destruction noted at [facility] FOOTWEAR EVALUATION: worn, OT were [...]
--- OUTSIDE RECORDS SUMMARY | 2024-08-03 10:54 | XMS_ITS | Clinical Summary ---
Author Organization [facility] Address [address] [place] [address] Care Team Providers Care Field Service Technician Name Role Phone Unavailable Primary Care [...] - 2023-2 5 season) 2023 Influenza Vaccine (Season Ended) 2024 HIB Vaccines Aged Out No longer eligi [...]
--- OUTSIDE RECORDS SUMMARY | 2024-08-03 10:54 | XMS_ITS | Clinical Summary ---
Author Organization [facility] Address [address] [place] [address] Care Team Providers Care Talent Acquisition Director Name Role Phone Monica Darby MD Primary [...] DAILY 3 Active Lancets (OneTouch Delica Plus Fidpjf22V) misc USE TO CHECK SUGARS DAILY 3 [...] Due Date Last Done Comments Pneumococcal Vaccine: 50+ Ye ars (1 of 2 - PCV) 11/18/1959 Diabetes: Hemoglobin A1C 05/15/2022 Diabetes: Ophthalmology Exam 05/15/2022 Diabetes: Pedal Pulse Checked 05/15/2022 Diabetes: Sensory Foot Exam 05/15/2022 Diabetes: Visual Foot Exam 05/15/2022 Influenza Vaccine (Season Ended) 2024 Hepatitis B Vaccine Aged Out No longe r eligible based on patient's age to complete this topic Insurance [facility] Care Teams Talent Acquisition Director Relationship Specialty Start Date End Date Monica Darby MD [address] [place] [address] PCP - General Internal Medicine 05/14/22
--- OUTSIDE RECORDS SUMMARY | 2024-08-03 10:54 | XMS_ITS ---
Author Organization [facility] Address [address] [place] [address] Care Team Providers Care Apn Name Role Phone Monica Darby Primary Care Provider UnavailJulio Cesar Ba Unavailable [phone] Allergies No Known Allergies REASON FOR VISIT [...] 04/27/2024 Encounters Encounter Location Date Provider Diagnosis [facility] [address] [place] [address] 04/27/2024 Julio Cesar Chaparro Diarrhea, unspecifie d [...] Notes * RONALD CASEYOB:1940 (83 yo M)Acc No.[id number]:04/27/2024 Progress Notes Patient:?LOPEZ CASEY Provider:?Julio Cesar Chaparro MD :1940???Age:83 Y???Sex:Male Romel e:04/27/2024 Address:[address] [place], [place] [id number] Pcp:Monica Darby Subjective: * Chief Complaints: * [...] your stomach?? * Procedure Codes:?1036F TOBAC CO NON-UHSAJ3131 BP SCR NOT PRFRM REC REASON NOS * Preventive Medicine:? ??Screenings:?Fall Risk Screening?Fall Risk Assessment:?No falls in the past year,?Screening:?No falls in the past year,?Assessment:?Not performed, no reason specified,?Plan of Care:?Not documented, no reason specified.? * Follow Up:?prn * * Sign off status: Completed true * Provider:?Julio Cesar Chaparro MD Date:? 025 Generated for Danilo moreno/Kofi/eTransmitting on:?08/03/2024 10:53 AM EDT History and Physical [...]
--- OUTSIDE RECORDS SUMMARY | 2024-08-03 10:54 | XMS_ITS ---
Author Organization [facility] Address [address] [facility] [place] [address] Care Team Providers Care Brass [employer] Instruments Tube Bender Name Role Phone Monica Darby Primary Care Provider Unavailab Fabricio Granados Unavailable [phone] Allergies No Known Allergies REASON FOR VISIT [...] Ordered Date Performed Result Body Sit e 02778-EXTVVSA NAIL, 1-02/24/2024 N/A 09136-JKRV SKIN LESIONS, OVER 4 02/24/2024 N/A I4199-DRLXKRDE DYSTROPHIC NAILS ANY # 02/24/2024 N/A Encounters Encounter Location Date Provider Diagnosis [facility] [address] [address] 02/24/2024 Fabricio Juan Type 2 diabetes mellitus [...] Treatment Pending Test Test Name Order Date 97623-TVQBXHS NAIL, 1-5 02/24/2024 30125-PLKG SKIN LESIONS, OVER 4 02/24/20 24 C5684-DJQTRPIB DYSTROPHIC NAILS ANY # Next Appt Details Follow Up: prn, Reason: Provider Name:Fabricio Juan , 08/24/2024 02:45:00 PM, [address] [place], [address], Procedure Notes * Category Sub-Category Detail Notes Keratoma Treatment Parring or Cutting o f Benign Hyperkeratotic Lesion(s) (-57) More than 4 Lesions - The Benign hyperkeratotic lesions, as described above were pared, and/or cut utilizing a sterile 15 blade, tissue nippers, and/or dremel - 38732 , Q8 Debride Nails 1-5 Procedure: Performance of this nail treatment by a nonprofessional would put this patients foot and overall health at risk. Therefore, nail debridement was performed extensively to reduce/remove overall nail length, girth, thickness, subungual debris, and necrotic tissue, by manual and/or electrical means through the use of a nail nipper and/or dremel-type ice grinder, to a more viable healthy nail plate or bed tissue 1-5. Silver nitrate used for any petechial bleeding as necessary. Definitive antifungal treatment options have been reviewed and discussed with the patient. The patient chooses, no pharmaceutical tx - 49706 Nail Reduction Nail Reduction (-27) Trimming o f dystrophic nails performed to reduce/remove overall nail length and girth, by manual and electrical means with use of a nail nipper and/or dremel, to more viable healthy nail plate or bed tissue, any number - G0127 , Q8 Progress Notes * Jesenia CASEYOB:1940 (83 yo M)Acc No.[id number]:02/24/2024 Progress Note Patient:?Fady Jhonny Provider:?Fabricio Juan DPM :1940???Age:83 Y???Sex:Male Romel e:02/24/2024 Address:[address] [place] [address] [facility] Pcp:Monica Darby Subjective: * Chief Complaints: * [...] mellitus with diabetic peripheral angiopathy without gangrene?Procedure: 69359-SVNR SKIN LESIONS, OVER 4 ?Procedure: F2350-XKAOQMQK DYSTROPHIC NAILS ANY # * Procedures:?Debride Nails 1-5:?Procedure:?Performance of this nail treatment by a nonprofessional would put this patients foot and overall health at risk. Therefore, nail debridement was performed extensively to reduce/remove overall nail length, girth, thickness, subungual debris, and necrotic tissue, by manual and/or electrical means through the use of a nail nipper and/or dremel-type ice grinder, to a more viable healthy nail plate or bed tissue 1-5. Silver nitrate used for any petechial bleeding as necessary. Definitive antifungal treatment options have been reviewed and discussed with the patient. The patient chooses, no pharmaceutical tx - 71031.?Keratoma Treatment:?Parring or Cutting of Benign Hyperkeratotic Lesion(s)?(-57) More than 4 Lesions - The Benign hyperkeratotic lesions, as described above were pared, and/or cut utilizing a sterile 15 blade, tissue nippers, and/or dremel - 90910 , Q8.?Nail Reduction:?Nail Reduction?(-27) Trimming of dystrophic nails performed to reduce/remove overall nail length and girth, by manual and electrical means with use of a nail nipper and/or dremel, to more viable healthy nail plate or bed tissue, any number - G0127 , Q8.? * Procedure Codes:?G0127 TIFFANIE ING DYSTROPHIC NAILS ANY #, Modifiers: XS , [id number] DEBRIDE NAIL, 1-5, Modifiers: XS 54114 TRIM SKIN LESIONS, OVER 4, Modifiers: XS [...] Provider:?Fabricio Juan DPM Date:?2023 Generated for Danilo moreno/Kofi/Wallaceitting on:?08/03/2024 10:54 AM EDT History and Physical [...]
--- OUTSIDE RECORDS SUMMARY | 2024-08-03 10:54 | XMS_ITS | Patient Health Record ---
Author Organization [facility] Address [address] [facility] [address] [place] [address] Care Team Providers Care Pbx Supervisor Name Role Phone Monica Darby Primary Care Provider UnavailJulio Cesar Ba Unavailable [phone] Allergies No Known Allergies Reason For Referral Referring Provider First Name Monica Referring Provider Last Name Wilner Referring Provider Speciality Internal M edicine Referred Organization [facility] Referred Provider Julio Cesar Chaparro Referred Address [address] [place] [address],[address],[place], [place],[address],[place] Referred Provider Specialty Gastroentero logy Referral Priority [...] Problem Status W/U Status Risk Notes Problem 560056543 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) Active confirmed Problem 14847737 Diarrhea, unspecified type (R19.7) Active confirmed Problem 801103987 Angiodysplasia o f stomach (K31.819) Active confirmed Vital Signs Blood pressure diastolic 00 mm Hg 04/27/2024 Height 69 in 04/27/2024 Blood pressure systolic 00 mm Hg 04/27/2024 Weight 166 lbs 04/27/2024 BMI 24.51 kg/m2 04/27/2024 Encounters Encounter Location Date Provider Diagnosis [facility] [address] [place] [address] 04/27/2024 Julio Cesar Chaparro Diarrhea, unspecifie d type R19.7 and Iron deficiency anemia due to chronic blood loss D50.0 [facility] [address] [place] [address] 07/13/2024 Julio Cesar Chaparro Assessments Encounter Date [...] Name Order Date IRON + IBC (FE) 09/28/2018 IRON + IBC (FE) 08/25/2018 IRON + IBC (FE) 05/20/2019 FERRITIN 09/28/2018 FERRITIN 08/25/2018 FERRITIN 05/20/2019 CBC w DIFF 05/20/2019 CBC w DIFF 09/28/2018 CBC w DIFF 08/25/2018 Insurance Providers Payer Name Payer Address Payer Phone Subscriber Number Group Number Insured Name Patient Relationship to Insured Coverage Start Date Coverage End Date [employer] PREFERRED [address] [place] [phone] [id number] LOPEZ CASEY Self - patient is the insured Medical (General) History Medical History History ICD Code Strokes--sees Dr. Johnson MCDONALDDM Hypertension Asthma COPD Denies [place],renal disease Iron deficiency anemia-he wa s hospitalized [...]
--- OUTSIDE RECORDS SUMMARY | 2024-08-03 10:54 | XMS_ITS | Patient Health Record ---
Author Organization [facility] Jasbir terrell [place] Address [address] [facility] [place] [address] Care Team Providers Care Therapeutic Program Worker Name Role Phone Monica Darby Primary Care Provider Unavailab Fabricio Granados Unavailable [phone] Allergies No Known Allergies Results Component Value [...] Referring Provider Last Name Wilner [facility] Referred Provider Fabricio Juan [facility] [address] [facility],[address], Referred Provider Specialty Podiatry Referral Priority Routine [...] Problem Acquired hammer toe of right foot (23754721158976 05) Other hammer toe(s) (acquired), right foot (M20.41) Active confirmed Problem Acquired hammer toe of left foot (27227222760347 03) Other hammer toe(s) (acquired), left foot (M20.42) Active confirmed Problem Type 2 diabetes mellitus with peripheral angiopathy (998057550) 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.51) Active confirmed Vital Signs Blood pressure diastolic 80 mm Hg 05/25/2024 Height 5 ft 6 in in 05/25/2024 Blood pressure systolic 120 mm Hg 05/25/2024 Weight 160 lbs 05/25/2024 BMI 25.82 kg/m2 05/25/2024 Procedures Procedure Date Ordered Date Performed Result Body Sit e 25314-NZRZXRH NAIL, 1-5 11/21/2023 N/A 56464-PXSF SKIN LESIONS, OVER 4 11/21/2023 N/A S1776-CSHVTZID DYSTROPHIC NAILS ANY # 11/21/2023 N/A 14225-IWVFAUE NAIL, 1-5 02/24/2024 N/A 92874-KWEQ SKIN LESIONS, OVER 4 02/24/2024 N/A W5217-NINBYCCP DYSTROPHIC NAILS ANY # 02/24/2024 N/A 24159-KMEJUVW NAIL, 1-5 05/25/2024 N/A 08511-ZWRR SKIN LESIONS, OVER 4 05/25/2024 N/A L7686-IZIIXBGJ DYSTROPHIC NAILS ANY # 05/25/2024 N/A Encounters Encounter Location Date Provider Diagnosis [address] [address] 11/21/2023 Fabricio Yessica Type 2 diabetes mellitus with diabetic peripheral angiopathy without gangrene E11.51 ; Tinea unguium B35.1 ; Pain in right toe(s) M79.674 ; Pain in left toe(s) M79.675 and Xerosis of skin L85.[address] [address] 02/24/2024 Fabricio Parrunier Type 2 diabetes mellitus with diabetic peripheral angiopathy without gangrene E11.51 ; Tinea unguium B35.1 ; Pain in right toe(s) M79.674 ; Pain in left toe(s) M79.675 and Xerosis of skin L85.[address] [address] 05/25/2024 Fabriciomariposa ParrYessica Type 2 diabetes mellitus [...] X ray : Foot, left 3V 02/06/2022 84104-LAESTMH NAIL, 1-5 05/07/2022 62610-OMDGQSN NAIL, 1-5 01/21/2022 61940-BOGKBSE NAIL, 1-5 08/13/2022 81952-RDIUOEM NAIL, 1-5 11/12/2022 41309-HEBZLDN NAIL, 1-5 02/04/2023 91160-HJOOIXQ NAIL, 1-5 06/13/2023 07391-EMLEGFK NAIL, 1-5 11/21/2023 43270-IUOLDEC NAIL, 1-5 02/24/2024 59603-JJACIRV NAIL, 1-5 05/25/2024 99597-Oony Destruction, 1-14 02/04/2023 35639-Wasi Destruction, 1-14 11/12/2022 41612-Wsdu Destruction, 1-14 08/13/2022 22211-Excx Destruction, -14 01/21/2022 47487-Wlhd Destruction, -14 05/07/2022 69610-SCZH SKIN LESIONS, OVER 4 05/07/19 23 84895-UTDN SKIN LESIONS, OVER 4 01/22/20 22 69715-WJMB SKIN LESIONS, OVER 4 08/14/19 23 10729-PNNZ SKIN LESIONS, OVER 4 11/13/19 23 46574-WAWF SKIN LESIONS, OVER 4 02/05/20 23 13460-UCRH SKIN LESIONS, OVER 4 11/21/19 24 17734-AXWW SKIN LESIONS, OVER 4 06/13/19 24 17841-MRSG SKIN LESIONS, OVER 4 05/25/19 25 21316-LMPC SKIN LESIONS, OVER 4 02/24/20 24 R0306-NBVUGQWT DYSTROPHIC NAILS ANY # N1280-AAHVKYRM DYSTROPHIC NAILS ANY # B5064-NOCKODKW DYSTROPHIC NAILS ANY # Q1270-FTVAANBL DYSTROPHIC NAILS ANY # A1462-KHLFVBVZ DYSTROPHIC NAILS ANY # R7705-IRKPZWBK DYSTROPHIC NAILS ANY # W8089-HXBVNRUG DYSTROPHIC NAILS ANY O7010-BMEVGSJJ DYSTROPHIC NAILS ANY # T1557-PGQSAKZY DYSTROPHIC NAILS ANY # Next Appt Details Provider Name:Fabricio Juan , 08/24/2024 02:45:00 PM, [address] [facility], [place], [address], Insurance Providers Payer Name Payer Address Payer Phone Subscriber Number Group Number Insured Name Patient Relationship to Insured Coverage Start Date Coverage End Date [employer] Medicare Preferred [address] [place] [phone] [id number] Jhonny Shrestha Self - patient is the insured Medical (General) History Medical History History ICD Code asthma Diabetic type ll Lung disease Parkinsons disease Stroke Chicken pox COPD Colon CA Hypercholesterolemia Hypertension Surgical History Surgery Date(Month/Year) appendectomy gall bladder cataract surgery Hospitalization History Reason Date(Month/Year) Ultrasound both legs for veins 2021
== END 2024-08-03 09:50 | disposition home or self-care (01) ==
LOC: HO.HKA 09:39
PROVIDERS: PCP Internal Medicine; Visit Provider Internal Medicine Hypertension Specialist
DX: N18.32 Chronic kidney disease, stage 3b (principal); R06.02 Shortness of breath; E87.5 Hyperkalemia
CPT/HCPCS: 99214

== ENCOUNTER → 2024-08-03 09:39 | Outpatient (BNVA) | payer MEDICARE, SELFPAY | PROVIDERS: PCP Internal Medicine; Visit Provider Internal Medicine Hypertension Specialist | DX: I12.9 Hypertensive chronic kidney disease with stage 1 through stage 4 chronic kidney disease, or unspecified chronic kidney disease (principal); R06.02 Shortness of breath; E87.5 Hyperkalemia; N18.32 Chronic kidney disease, stage 3b; Z85.46 Personal history of malignant neoplasm of prostate | CPT/HCPCS: 99212 ==

== ENCOUNTER 2024-08-06 06:23 | Emergency (ER) | payer MEDICARE, SELFPAY ==
[2024-08-06 06:28] VITALS: BP 145/64; PULSE 84; RESP 16; TEMP 36.2; O2SAT 98; BMI 24.2
--- NOTE | 2024-08-06 06:42 | ED.EAR ---
HPI - Ear Problem General Chief complaint: Ear Problems Stated complaint: LEFT EAR PAIN Time Seen by Provider: 08/06/24 06:37 Source: patient Mode of arrival: ambulatory Limitations: no limitations History of Present Illness ED Provider: Dr. Erin Frances HPI Narrative: Patient comes to the emergency room complaining left-sided ear pain that started 3 days ago. Patient denies fever or chills. Patient denies swimming. Patient states that his ear feels like it is wet on the inside. Patient denies any trauma or hearing loss or worsening hearing difficulty. Denies sore throat Related Data Home Medications ?Medication ?Instructions ?Recorded ?Confirmed simvastatin 40 mg tablet 40 mg PO DAILY 03/13/20 08/03/24 cetirizine 10 mg tablet 10 mg PO DAILY 07/11/20 08/03/24 famotidine 40 mg tablet 40 mg PO DAILY PRN 10/08/22 08/03/24 glipizide 5 mg tablet, extended 5 mg PO DAILY 10/08/22 08/03/24 release 24 hr lisinopril 10 1 tab PO DAILY 10/08/22 08/03/24 mg-hydrochlorothiazide 12.5 mg tablet pantoprazole 40 mg tablet,delayed 40 mg PO DAILY 05/06/23 08/03/24 release fluticasone propionate 50 1 spray intranasal BID PRN 09/25/23 08/03/24 mcg/actuation nasal spray,suspension (Flonase Allergy Relief) dorzolamide 2 % eye drops 1 drp ophthalmic (eye) Q12H 11/10/23 08/03/24 loperamide 2 mg capsule 2 mg PO DAILY PRN 03/08/24 08/03/24 calcium carbonate (Calcium 600) 600 mg PO DAILY 05/11/24 08/03/24 cholecalciferol (vitamin D3) 50 50 mcg PO DAILY 05/11/24 08/03/24 mcg (2,000 unit) capsule guaifenesin 600 mg tablet, 600 mg PO DAILY 07/28/24 08/03/24 extended release 12 hr (Mucinex) Previous Rx's ?Medication ?Instructions ?Recorded albuterol sulfate 90 mcg/actuation 2 puff inhalation Q4-6H PRN 11/12/21 aerosol inhaler (ProAir HFA) shortness of breath or wheezing 60 days #8.5 grams finasteride 5 mg tablet 5 mg PO DAILY 90 days #90 tabs 04/01/24 Breo Ellipta 100 mcg-25 mcg/dose 1 inh inhalation DAILY COPD 90 06/18/24 powder for inhalation (fluticasone days #3 ea furoate-vilanterol) amoxicillin 500 mg-potassium 1 tab PO TID 10 days #30 tabs 08/06/24 clavulanate 125 mg tablet (Augmentin) tramadol 50 mg tablet 50 mg PO BID PRN pain #8 tabs 08/06/24 Allergies Allergy/AdvReac Type Severity Reaction Status Date / Time No Known Allergies Allergy Verified 08/06/24 06:29 [No Known Allergies*] Review of Systems Review of Systems: Constitutional : No Weight loss, No Fever, No Chills, No Night Sweats, No Fatigue, No Malaise ENT/Mouth : No Hearing loss, complaining of left-sided Ear Pain, No Nasal Congestion, No Sinus Pain, No Hoarseness, No sore throat, No Rhinorrhea, No Swallowing Difficulty Eyes: No Eye Pain, No Swelling, No Redness, No Foreign Body, No Discharge, No Vision Changes Cardiovascular : No Chest Pain, No SOB, No Dyspnea on Exertion, No Orthopnea, No Edema, No Palpitations Respiratory : No Cough, No Sputum, No Wheezing, No Smoke Exposure, No Dyspnea Gastrointestinal : No Nausea, No Vomiting, No Diarrhea, No Constipation, No abdominal Pain, No Hematochezia, No Melena Genitourinary : no irregular bleeding, No Dysuria, No Urinary Frequency, No Hematuria, No Urinary Incontinence, No Urgency, No Flank Pain, No Urinary Flow Changes, No Hesitancy Musculoskeletal : No joint pain, No Myalgias, No Joint Swelling Skin : No Skin Lesions, No rash Neuro : No Weakness, No Numbness, No Paresthesias, No Loss of Consciousness, No Dizziness, No Headache Psych : No Anxiety/Panic, No Depression, No SI/HI/AH/VH, No Social Issues, Heme/Lymph: No Bruising, No Bleeding,No Lymphadenopathy Endocrine : No Polyuria, No Polydipsia, No Temperature Intolerance [facility] Past Medical History Medical History Cough Hypersomnia Stroke COPD exacerbation COPD (chronic obstructive pulmonary disease) Allergic rhinitis Surgical History Hx of cataract surgery (~09/2023) S/P tonsillectomy and adenoidectomy Hx of cholecystectomy History of appendectomy Family History Family History Mother No problems noted. Father Heart disease Social History Social History Alcohol intake: former Patient Tobacco Use Status: Former Tobacco user Years Smoked: 40 +/- Advance Directives: No Advance Directives Information Provided: Yes Do you have a plan to hurt others: No Plan Physical Exam Vital Signs: Vital Signs: Last Vital Signs Temp 97.2 F 08/06/24 06:28 Pulse 84 08/06/24 06:28 Resp 16 08/06/24 06:28 BP 145/64 H 08/06/24 06:28 Pulse Ox 98 08/06/24 06:28 O2 Del Method Room Air 08/06/24 06:28 BMI result Body Mass Index 24.2 Const: Other: Appearance: Alert. Oriented X3. No acute distress. Eyes: Pupils equal, round and reactive to light. ENT: Pharynx normal. No mastoid bone tenderness on either side. Right ear normal tympanic membranes, normal ear canal. Left ear canal seems a bit swollen, tympanic membrane is erythematous. No perforation Neck: Normal inspection. Neck supple. No lymph nodes noted. No crepitus CVS: Normal heart rate and rhythm. Pulses normal. Normal S1 and S2 Respiratory: No respiratory distress. Breath sounds normal. No Wheezing. No rales Abdomen: Soft and nontender. No rigidity. No distention. Skin: Skin warm and dry. Normal skin color. Normal skin turgor. Extremities: No lower extremity edema. No Lacerations. No Rash Neuro: Oriented X 3. No motor deficit. No sensory deficit. Moving all extremities. No slurred speech. CN 2 through 12 grossly intact Psych: calm, cooperative, normal affect Medical Decision Making Medical Decision Making MDM Narrative: I discussed the physical exam with the patient, patient likely has otitis media. Patient was given a p.o. dose of oxycodone and Augmentin. Patient has chronic kidney disease, NSAIDs to be avoided. Patient has tried Tylenol with no relief Discharge Plan Discharge Clinical Impression: Otitis media Patient Disposition: Home, Self-Care Instructions: Ear Infection (ED) Additional Instructions: Please follow-up with your primary care physician tomorrow. If you have any worsening or new symptoms, please return to the emergency room or call 911 Prescriptions: New amoxicillin-pot clavulanate [Augmentin] 500-125 mg tablet 1 tab PO TID 10 Days Qty: 30 0RF tramadol 50 mg tablet 50 mg PO BID PRN (Reason: pain) Qty: 8 0RF No Action finasteride 5 mg tablet 5 mg PO DAILY 90 Days Qty: 90 1RF Breo Ellipta 100-25 mcg/dose blister with device 1 inh inhalation DAILY 90 Days Qty: 3 3RF simvastatin 40 mg tablet 40 mg PO DAILY cetirizine 10 mg tablet 10 mg PO DAILY lisinopril-hydrochlorothiazide 10-12.5 mg tablet 1 tab PO DAILY glipizide 5 mg tablet extended release 24hr 5 mg PO DAILY albuterol sulfate [ProAir HFA] 90 mcg/actuation HFA aerosol inhaler 2 puff inhalation Q4-6H PRN (Reason: shortness of breath or wheezing) 60 Days Qty: 8.5 3RF famotidine 40 mg tablet 40 mg PO DAILY PRN fluticasone propionate [Flonase Allergy Relief] 50 mcg/actuation spray,suspension 1 spray intranasal BID PRN Rx Instructions: administer into each nostril calcium carbonate [Calcium 600] 600 mg calcium (1,500 mg) tablet 600 mg PO DAILY cholecalciferol (vitamin D3) 50 mcg (2,000 unit) capsule 50 mcg PO DAILY pantoprazole 40 mg tablet,delayed release (DR/EC) 40 mg PO DAILY dorzolamide 2 % drops 1 drp ophthalmic (eye) Q12H loperamide 2 mg capsule 2 mg PO DAILY PRN guaifenesin [Mucinex] 600 mg tablet extended release 12hr 600 mg PO DAILY Print Language: Vietnamese
--- OUTSIDE RECORDS SUMMARY | 2024-08-06 06:45 | XMS_ITS | Patient Health Record ---
[facility] Organization [facility] Jasbir terrell [place] Address [address] [facility] [place] [address] Care Team Providers Care Operations Supervisor Chemical Cleaning Name Role Phone Monica Darby Primary Care Provider Unavailab Fabricio Granados Unavailable [phone] Allergies No Known Allergies Results Component Value [...] Referring Provider Last Name Wilner [facility] Referred Provider Fabricio Juan Referred Address [address] [facility],[place], [place],[address], Referred Provider Specialty Podiatry Referral Priority Routine [...] Problem Acquired hammer toe of right foot (61702527127064 05) Other hammer toe(s) (acquired), right foot (M20.41) Active confirmed Problem Acquired hammer toe of left foot (24558495000116 03) Other hammer toe(s) (acquired), left foot (M20.42) Active confirmed Problem Type 2 diabetes mellitus with peripheral angiopathy (278440896) 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.51) Active confirmed Vital Signs Blood pressure diastolic 80 mm Hg 05/25/2024 Height 5 ft 6 in in 05/25/2024 Blood pressure systolic 120 mm Hg 05/25/2024 Weight 160 lbs 05/25/2024 BMI 25.82 kg/m2 05/25/2024 Procedures Procedure Date Ordered Date Performed Result Body Sit e 74971-NIISHLQ NAIL, 1-5 11/21/2023 N/A 98550-YCTD SKIN LESIONS, OVER 4 11/21/2023 N/A R0742-BATDGUYL DYSTROPHIC NAILS ANY # 11/21/2023 N/A 27695-SKQASBU NAIL, 1-5 02/24/2024 N/A 60806-BOMV SKIN LESIONS, OVER 4 02/24/2024 N/A D2998-NSZMFJVW DYSTROPHIC NAILS ANY # 02/24/2024 N/A 38470-WNWTVDN NAIL, 1-5 05/25/2024 N/A 92090-LDML SKIN LESIONS, OVER 4 05/25/2024 N/A J8487-SWOREWEC DYSTROPHIC NAILS ANY # 05/25/2024 N/A Encounters Encounter Location Date Provider Diagnosis [address] [address] 11/21/2023 Fabricio Yessica Type 2 diabetes mellitus with diabetic peripheral angiopathy without gangrene E11.51 ; Tinea unguium B35.1 ; Pain in right toe(s) M79.674 ; Pain in left toe(s) M79.675 and Xerosis of skin L85.[address] [address] 02/24/2024 Fabricio Parrunier Type 2 diabetes mellitus with diabetic peripheral angiopathy without gangrene E11.51 ; Tinea unguium B35.1 ; Pain in right toe(s) M79.674 ; Pain in left toe(s) M79.675 and Xerosis of skin L85.[address] [address] 05/25/2024 Fabriciomariposa ParrYessica Type 2 diabetes mellitus [...] X ray : Foot, left 3V 02/06/2022 25141-KQRGELW NAIL, 1-5 05/07/2022 34754-MBYHOYG NAIL, 1-5 01/21/2022 50362-IXKZXQZ NAIL, 1-5 08/13/2022 91452-ZXPTFBE NAIL, 1-5 11/12/2022 64094-DTOHIJC NAIL, 1-5 02/04/2023 97796-CYTWVWJ NAIL, 1-5 06/13/2023 33154-DBWJMEB NAIL, 1-5 11/21/2023 98996-ZCCHNTG NAIL, 1-5 02/24/2024 56179-NBZDCFA NAIL, 1-5 05/25/2024 76070-Izeu Destruction, 1-14 02/04/2023 13284-Rrly Destruction, 1-14 11/12/2022 57768-Ykdx Destruction, 1-14 08/13/2022 82216-Gnmx Destruction, -14 01/21/2022 21246-Htbx Destruction, -14 05/07/2022 07896-EJPY SKIN LESIONS, OVER 4 05/07/19 23 59639-ZRCJ SKIN LESIONS, OVER 4 01/22/20 22 12642-KARC SKIN LESIONS, OVER 4 08/14/19 23 56547-ETTM SKIN LESIONS, OVER 4 11/13/19 23 90374-OEON SKIN LESIONS, OVER 4 02/05/20 23 56429-MGLV SKIN LESIONS, OVER 4 11/21/19 24 19939-ODMN SKIN LESIONS, OVER 4 06/13/19 24 79380-MIXP SKIN LESIONS, OVER 4 05/25/19 25 53445-RUJT SKIN LESIONS, OVER 4 02/24/20 24 Q7268-RNBPJZQK DYSTROPHIC NAILS ANY # W0449-QZOGOTRX DYSTROPHIC NAILS ANY # J3172-NQLPKWKO DYSTROPHIC NAILS ANY # Z4152-MRLHXFRM DYSTROPHIC NAILS ANY # K7562-BRDAZYLJ DYSTROPHIC NAILS ANY # J4361-HVOWIGCB DYSTROPHIC NAILS ANY # J7211-MCARQGER DYSTROPHIC NAILS ANY D3259-UKAYUTCE DYSTROPHIC NAILS ANY # Y1128-AVNQQLZN DYSTROPHIC NAILS ANY # Next Appt Details Provider Name:Fabricio Juan , 08/24/2024 02:45:00 PM, [address] [facility], [place], [address], Insurance Providers Payer Name Payer Address Payer Phone Subscriber Number Group Number Insured Name Patient Relationship to Insured Coverage Start Date Coverage End Date [employer] Medicare Preferred [address] [place] [phone] [id number] Jhonny Shrestha Self - patient is the insured Medical (General) History Medical History History ICD Code asthma Diabetic type ll Lung disease Parkinsons disease Stroke Chicken pox COPD Colon CA Hypercholesterolemia Hypertension Surgical History Surgery Date(Month/Year) appendectomy gall bladder cataract surgery Hospitalization History Reason Date(Month/Year) Ultrasound both legs for veins 2021
--- OUTSIDE RECORDS SUMMARY | 2024-08-06 06:45 | XMS_ITS ---
Author Organization [facility] Address [address] [place] [address] Care Team Providers Care Manager Of Corporate Communications Name Role Phone Monica Darby Primary Care Provider Unavailab Julio Cesar Vides [phone] REASON FOR VISIT PLEASE LOCK NOTE FROM 04-27-24 Encounters Encounter Location Date Provider Diagnosis [facility] [address] [place] [address] 07/13/2024 Julio Cesar Chaparro Plan Of Treatment No Information Progress Notes * RONALD CASEYOB:1940 (83 yo M)Acc No.[id number]:07/13/2024 Patient:?LOPEZ CASEY :1940???Age:83 Y???Sex:Male Address:[address] [place] [address], [address] * true * Date:? Generated for Danilo moreno/Kofi/eTransmitting on:?08/06/2024 06:44 AM EDT
--- OUTSIDE RECORDS SUMMARY | 2024-08-06 06:45 | XMS_ITS ---
Author Organization [facility] Address [address] [place] [address] Care Team Providers Care Author Agent Name Role Phone Monica Darby Primary Care Provider UnavailJulio Cesar Ba Unavailable [phone] Allergies No Known Allergies REASON FOR VISIT [...] 04/27/2024 Encounters Encounter Location Date Provider Diagnosis [facility] [address] [place] [address] 04/27/2024 Julio Cesar Chaparro Diarrhea, unspecifie d [...] Notes * RONALD CASEYOB:1940 (83 yo M)Acc No.[id number]:04/27/2024 Progress Notes Patient:?LOPEZ CASEY Provider:?Julio Cesar Chaparro MD :1940???Age:83 Y???Sex:Male Romel e:04/27/2024 Address:[address] [place], [place] [address] Pcp:Monica Darby Subjective: * Chief Complaints: * [...] your stomach?? * Procedure Codes:?1036F TOBAC CO NON-QOHBM7778 BP SCR NOT PRFRM REC REASON NOS * Preventive Medicine:? ??Screenings:?Fall Risk Screening?Fall Risk Assessment:?No falls in the past year,?Screening:?No falls in the past year,?Assessment:?Not performed, no reason specified,?Plan of Care:?Not documented, no reason specified.? * Follow Up:?prn * * Sign off status: Completed true * Provider:?Julio Cesar Chaparro MD Date:? 025 Generated for Danilo moreno/Kofi/eTransmitting on:?08/06/2024 06:44 AM EDT History and Physical Notes * [...]
--- OUTSIDE RECORDS SUMMARY | 2024-08-06 06:45 | XMS_ITS | Clinical Summary ---
Author Organization [facility] Address [address] [place] [address] Care Team Providers Care Flake Or Shred Roll Operator Name Role Phone Monica Darby MD [...] DAILY 3 Active Lancets (OneTouch Delica Plus [id number]) misc USE TO CHECK SUGARS DAILY 3 [...] patient's age to complete this topic Insurance [facility] Care Teams Flake Or Shred Roll Operator Relationship Specialty Start Date End Date Monica Darby MD [address] [place] [address] PCP - General Internal Medicine 05/14/22
--- OUTSIDE RECORDS SUMMARY | 2024-08-06 06:45 | XMS_ITS | Clinical Summary ---
[facility] Organization [facility] Address [address] [place] [address] Care Team Providers Care Gift Consultant Name Role Phone Unavailable Primary Care Provider [...]
--- OUTSIDE RECORDS SUMMARY | 2024-08-06 06:45 | XMS_ITS ---
Author Organization [facility] Address [address] [facility] [place] [address] Care Team Providers Care Plastering Supervisor Name Role Phone Monica Darby Primary Care Provider Unavailab Fabricio Granados Unavailable [phone] Allergies No Known Allergies REASON FOR VISIT [...] No Points 0 Interpretation Negative Vital Signs Blood pressure systolic 120 mm Hg 05/25/19 25 Blood pressure diastolic 80 mm Hg 025 Height 5 ft 6 in in 05/25/2024 Weight 160 lbs 05/25/2024 BMI 25.82 kg/m2 05/25/2024 Procedures Procedure Date Ordered Date Performed Result Body Sit e 59865-RBXOQLS NAIL, 1-5 05/25/2024 N/A 99210-HAVI SKIN LESIONS, OVER 4 05/25/2024 N/A O3788-PNFGQSFM DYSTROPHIC NAILS ANY # 05/25/2024 N/A Encounters Encounter Location Date Provider Diagnosis [facility] [place] [address] [place] [address] 05/25/2024 Fabricio Juan Type 2 diabetes mellitus [...] INSTRUCTIONS.pdf) Pending Test Test Name Order Date 30187-HUDSJIL NAIL, 1-5 05/25/2024 95221-VTJS SKIN LESIONS, OVER 4 05/25/19 25 P1447-YPOGVHRU DYSTROPHIC NAILS ANY # Next Appt Details Follow Up: prn, Reason: Provider Name:Fabricio Juan , 08/24/2024 02:45:00 PM, [address] [place] [address], [address], Procedure Notes * Category Sub-Category Detail Notes [...] instrumentation by the physician of record - 64373, Q8 Debride Nails 1-5 Procedure: Due to [...] necessary to maintain effective symptomatic relief - 87728 Nail Reduction Nail Reduction (-27) Trimming o [...] Notes * Jesenia CASEYOB:1940 (83 yo M)Acc No.[id number]:05/25/2024 Progress Note Patient:?Jhonny CASEY Provider:?Fabricio Juan DPM :1940???Age:83 Y???Sex:Male Romel e:05/25/2024 Address:[address] [place] [address], [id number] Pcp:Monica Darby Subjective: * Chief Complaints: * [...] Worse (4)??? Plan: * Treatment: 2.?Tinea unguium?Procedure: 41462-EINXEWD NAIL, 1-5 3.?Other hammer toe(s) (acqu ired), [...] necessary to maintain effective symptomatic relief - 70096.?Keratoma Treatment:?Parring or Cutting of Benign Hyperkeratotic Lesion(s)?(-57) [...] instrumentation by the physician of record - 42531, Q8.?Nail Reduction:?Nail Reduction?(-27) Trimming of all dystrophic [...] DYSTROPHIC NAILS ANY #, Modifiers: XS , [id number] DEBRIDE NAIL, 1-5, Modifiers: XS 70058 TRIM SKIN LESIONS, OVER 4, Modifiers: XS [...] Juan DPM Date:?2024 Generated for Danilo moreno/Kofi/Adrian on:?08/06/2024 06:45 AM EDT History and Physical Notes * [...] structure , No Charcot collapse/destruction noted at [facility] FOOTWEAR EVALUATION: worn, OT were inspe cted [...]
--- OUTSIDE RECORDS SUMMARY | 2024-08-06 06:45 | XMS_ITS | Patient Health Record ---
Author Organization [facility] Address [address] [facility] [address] [place] [address] Care Team Providers Care Senior Javascript Developer Name Role Phone Monica Darby Primary Care Provider UnavailJulio Cesar Ba Unavailable [phone] Allergies No Known Allergies Reason For Referral Referring Provider First Name Monica Referring Provider Last Name Wilner Referring Provider Speciality Internal M edicine Referred Organization [facility] Referred Provider Julio Cesar Chaparro Referred Address [address] [place] [address],[address],[place], [place],[address],[place] Referred Provider Specialty Gastroentero logy Referral Priority [...] Problem Status W/U Status Risk Notes Problem 129558857 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 [address] [place] [address] 04/27/2024 Julio Cesar Chaparro Diarrhea, unspecifie d type R19.7 and Iron deficiency anemia due to chronic blood loss D50.0 [facility] [address] [place] [address] 07/13/2024 Julio Cesar Chaparro Assessments Encounter Date [...] MEDICARE PREFERRED [address] [place] MC[place] [phone] [id number] LOPEZ CASEY Self - patient is the insured Medical (General) History Medical History History ICD Code Strokes--sees Dr. Johnson MCDONALDDM Hypertension Asthma COPD Denies SC,renal disease Iron deficiency anemia-he wa s hospitalized [...]
--- OUTSIDE RECORDS SUMMARY | 2024-08-06 06:45 | XMS_ITS ---
Author Organization [facility] Address [address] [facility] [place] [address] Care Team Providers Care Animal Anatomy Teacher Name Role Phone Monica Darby Primary Care Provider Unavailab Fabricio Granados Unavailable [phone] Allergies No Known Allergies REASON FOR VISIT [...] Ordered Date Performed Result Body Sit e 23529-VSKXIEW NAIL, 1-02/24/2024 N/A 97340-PVSQ SKIN LESIONS, OVER 4 02/24/2024 N/A C1686-XAOMKTNQ DYSTROPHIC NAILS ANY # 02/24/2024 N/A Encounters Encounter Location Date Provider Diagnosis [facility] [address] [address] 02/24/2024 Fabricio Juan Type 2 diabetes mellitus [...] Treatment Pending Test Test Name Order Date 33569-NFMANPU NAIL, 1-5 02/24/2024 36405-KUWZ SKIN LESIONS, OVER 4 02/24/20 24 I5072-ITNFJLXT DYSTROPHIC NAILS ANY # Next Appt Details Follow Up: prn, Reason: Provider Name:Fabricio Juan , 08/24/2024 02:45:00 PM, [address] [place], [address], Procedure Notes * Category Sub-Category Detail Notes Keratoma Treatment Parring or Cutting o f Benign Hyperkeratotic Lesion(s) (-57) More than 4 Lesions - The Benign hyperkeratotic lesions, as described above were pared, and/or cut utilizing a sterile 15 blade, tissue nippers, and/or dremel - 99729 , Q8 Debride Nails 1-5 Procedure: Performance of this nail treatment by a nonprofessional would put this patients foot and overall health at risk. Therefore, nail debridement was performed extensively to reduce/remove overall nail length, girth, thickness, subungual debris, and necrotic tissue, by manual and/or electrical means through the use of a nail nipper and/or dremel-type gear and spline grinder, to a more viable healthy nail plate or bed tissue 1-5. Silver nitrate used for any petechial bleeding as necessary. Definitive antifungal treatment options have been reviewed and discussed with the patient. The patient chooses, no pharmaceutical tx - 48431 Nail Reduction Nail Reduction (-27) Trimming o f dystrophic nails performed to reduce/remove overall nail length and girth, by manual and electrical means with use of a nail nipper and/or dremel, to more viable healthy nail plate or bed tissue, any number - G0127 , Q8 Progress Notes * Jesenia CASEYOB:1940 (83 yo M)Acc No.[id number]:02/24/2024 Progress Note Patient:?Fady Jhonny Provider:?Fabricio Juan DPM :1940???Age:83 Y???Sex:Male Romel e:02/24/2024 Address:[address] [place] [address] [facility] Pcp:Monica Darby Subjective: * Chief Complaints: * [...] mellitus with diabetic peripheral angiopathy without gangrene?Procedure: 75633-ROTP SKIN LESIONS, OVER 4 ?Procedure: K9642-TUYLGBQC DYSTROPHIC NAILS ANY # * Procedures:?Debride Nails 1-5:?Procedure:?Performance of this nail treatment by a nonprofessional would put this patients foot and overall health at risk. Therefore, nail debridement was performed extensively to reduce/remove overall nail length, girth, thickness, subungual debris, and necrotic tissue, by manual and/or electrical means through the use of a nail nipper and/or dremel-type gear and spline grinder, to a more viable healthy nail plate or bed tissue 1-5. Silver nitrate used for any petechial bleeding as necessary. Definitive antifungal treatment options have been reviewed and discussed with the patient. The patient chooses, no pharmaceutical tx - 82329.?Keratoma Treatment:?Parring or Cutting of Benign Hyperkeratotic Lesion(s)?(-57) More than 4 Lesions - The Benign hyperkeratotic lesions, as described above were pared, and/or cut utilizing a sterile 15 blade, tissue nippers, and/or dremel - 15668 , Q8.?Nail Reduction:?Nail Reduction?(-27) Trimming of dystrophic nails performed to reduce/remove overall nail length and girth, by manual and electrical means with use of a nail nipper and/or dremel, to more viable healthy nail plate or bed tissue, any number - G0127 , Q8.? * Procedure Codes:?G0127 TIFFANIE ING DYSTROPHIC NAILS ANY #, Modifiers: XS , [id number] DEBRIDE NAIL, 1-5, Modifiers: XS 31912 TRIM SKIN LESIONS, OVER 4, Modifiers: XS [...] Juan DPM Date:?2023 Generated for Danilo moreno/Kofi/Adrian on:?08/06/2024 06:45 AM [...]
[2024-08-06] MEDS: oxyCODONE HCl Immed Release 5 MG TABLET PO (06:50)
[2024-08-06] MEDS: Amoxicillin/Potassium Clav 500 MG TABLET PO (06:50)
[2024-08-06 06:56] VITALS: BP 145/64; PULSE 84; RESP 16; TEMP 36.2; O2SAT 98
== END 2024-08-06 06:57 | disposition home or self-care (01) ==
PROVIDERS: Emergency Provider Emergency Medicine; PCP Internal Medicine
DX: H92.02 Otalgia, left ear (principal); H66.92 Otitis media, unspecified, left ear; Z79.899 Other long term (current) drug therapy; Z87.891 Personal history of nicotine dependence
CPT/HCPCS: 99283

== ENCOUNTER 2024-08-20 07:22 | Outpatient (REF) | payer MEDICARE, SELFPAY ==
--- OUTSIDE RECORDS SUMMARY | 2024-08-20 07:24 | XMS_ITS ---
Author Organization [facility] Address [address] [facility] [place] [address] Care Team Providers Care Senior Capital Markets Specialist Name Role Phone Monica Darby Primary Care Provider Unavailab Fabricio Granados Unavailable [phone] Allergies No Known Allergies REASON FOR VISIT [...] Ordered Date Performed Result Body Sit e 28684-SMGKLRY NAIL, 1-5 11/21/2023 N/A 56270-NCSH SKIN LESIONS, OVER 4 11/21/2023 N/A K6188-PIBNBDCD DYSTROPHIC NAILS ANY # 11/21/2023 N/A Encounters Encounter Location Date Provider Diagnosis [facility] [address] [address] 11/21/2023 Fabricio Juan Type 2 diabetes mellitus [...] days Pending Test Test Name Order Date 68790-TVYYSIO NAIL, 1-5 11/21/2023 80480-UKDR SKIN LESIONS, OVER 4 11/21/19 24 V0922-ULWHGBBX DYSTROPHIC NAILS ANY # Next Appt Details Follow Up: prn, Reason: Provider Name:Fabricio Juan , 08/24/2024 02:45:00 PM, [address] [place], [address], Procedure Notes * Category Sub-Category Detail Notes Keratoma Treatment Parring or Cutting o f Benign Hyperkeratotic Lesion(s) 45740 ( >4 Lesions) - The Benign hyperkeratotic [...] as necessary. Patient chooses, no pharmaceutical tx (14288) Nail Reduction Nail Reduction Trimming of dyst rophic nails performed to reduce/remove overall nail length and girth, by manual and electrical means with use of a nail nipper and/or dremel, to more viable healthy nail plate or bed tissue 6-10 (P3731-E0) Progress Notes * Jesenia CASEYOB:1940 (83 yo M)Acc No.[id number]:11/21/2023 Progress Note Patient:?Jhonny CASEY Provider:?Fabricio Juan DPM :1940???Age:83 Y???Sex:Male Romel e:11/21/2023 Address:[address] [place] [address] [id number] Pcp:Monica Darby Subjective: * Chief Complaints: * [...] mellitus with diabetic peripheral angiopathy without gangrene?Procedure: 47876-OVOH SKIN LESIONS, OVER 4 ?Procedure: X5007-XGFNDRSH DYSTROPHIC NAILS ANY # 3.?Xerosis of skin? [...] as necessary. Patient chooses, no pharmaceutical tx (94460).?Keratoma Treatment:?Parring or Cutting of Benign Hyperkeratotic Lesion(s)?17517 ( >4 Lesions) - The Benign hyperkeratotic [...] DYSTROPHIC NAILS ANY #, Modifiers: XS , [id number] DEBRIDE NAIL, 1-5, Modifiers: XS 36854 TRIM SKIN LESIONS, OVER 4, Modifiers: XS [...] Juan DPM Date:?2023 Generated for Danilo moreno/Kofi/Adrian on:?08/20/2024 07:24 AM EDT History and Physical Notes * [...]
--- OUTSIDE RECORDS SUMMARY | 2024-08-20 07:24 | XMS_ITS | Clinical Summary ---
Author Organization [facility] Address [address] [place] [address] Care Team Providers Care Improvement Spec Name Role Phone Unavailable Primary Care Provider [...]
--- OUTSIDE RECORDS SUMMARY | 2024-08-20 07:25 | XMS_ITS | Patient Health Record ---
Author Organization [facility] Address [address] [place] [address] Care Team Providers Care Shipboard Intelligence Analyst Name Role Phone Monica Darby Primary Care Provider Unavailab Fabricio Granados Unavailable [phone] Allergies No Known Allergies Reason For Referral Diagnosis 1 Type 2 [...] Monica Referring Provider Last Name Wilner [facility]erred Provider Fabricio Juan Referred Address [address] [facility],[place],[address], Referred Provider Specialty Podiatry Referral Priority Routine [...] Problem Acquired hammer toe of right foot (95442160110705 05) Other hammer toe(s) (acquired), right foot (M20.41) Active confirmed Problem Acquired hammer toe of left foot (81286695634318 03) Other hammer toe(s) (acquired), left foot (M20.42) Active confirmed Problem Type 2 diabetes mellitus with peripheral angiopathy (453113906) 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.51) Active confirmed Vital Signs Blood pressure diastolic 80 mm Hg 05/25/2024 Height 5 ft 6 in in 05/25/2024 Blood pressure systolic 120 mm Hg 05/25/2024 Weight 160 lbs 05/25/2024 BMI 25.82 kg/m2 05/25/2024 Procedures Procedure Date Ordered Date Performed Result Body Sit e 86431-HIUULUG NAIL, 1-5 11/21/2023 N/A 82595-SYDO SKIN LESIONS, OVER 4 11/21/2023 N/A Y9113-ZVYMYPWU DYSTROPHIC NAILS ANY # 11/21/2023 N/A 93699-JTVDAHX NAIL, 1-5 02/24/2024 N/A 59478-VRAG SKIN LESIONS, OVER 4 02/24/2024 N/A X7693-IJDBJHIK DYSTROPHIC NAILS ANY # 02/24/2024 N/A 46828-ASUYESQ NAIL, 1-5 05/25/2024 N/A 55394-ADXH SKIN LESIONS, OVER 4 05/25/2024 N/A J0800-MHNXBCIJ DYSTROPHIC NAILS ANY # 05/25/2024 N/A Encounters Encounter Location Date Provider Diagnosis [address] [address] 11/21/2023 Fabricio Juan Type 2 diabetes mellitus with diabetic peripheral angiopathy without gangrene E11.51 ; Tinea unguium B35.1 ; Pain in right toe(s) M79.674 ; Pain in left toe(s) M79.675 and Xerosis of skin L85.[address] [address] 02/24/2024 Fabricio Juan Type 2 diabetes mellitus with diabetic peripheral angiopathy without gangrene E11.51 ; Tinea unguium B35.1 ; Pain in right toe(s) M79.674 ; Pain in left toe(s) M79.675 and Xerosis of skin L85.[address] [address] 05/25/2024 Fabricio Parrunier Type 2 diabetes mellitus with [...] X ray : Foot, left 3V 02/06/2022 41765-XQHFVSA NAIL, 1-5 05/07/2022 22854-EXNMTIH NAIL, 1-5 01/21/2022 16128-DYUVNPG NAIL, 1-5 08/13/2022 98115-YKFHPRY NAIL, 1-5 11/12/2022 90838-ZZWYJNZ NAIL, 1-5 02/04/2023 23407-NJJOKVI NAIL, 1-5 06/13/2023 43304-XSPJSTJ NAIL, 1-5 11/21/2023 31512-MIFYBKN NAIL, 1-5 02/24/2024 96489-PNSXQJO NAIL, 1-5 05/25/2024 49890-Vuhc Destruction, 1-14 02/04/2023 30366-Bxue Destruction, 1-14 11/12/2022 69226-Xmwi Destruction, -14 08/13/2022 90733-Rvdg Destruction, 1-14 01/21/2022 30737-Iztf Destruction, 1-14 05/07/2022 97604-SLCN SKIN LESIONS, OVER 4 05/07/19 64622-SBZD SKIN LESIONS, OVER 4 01/22/20 22568-AWEQ SKIN LESIONS, OVER 4 08/14/19 23 06106-CDQV SKIN LESIONS, OVER 4 11/13/19 23 39004-MOIO SKIN LESIONS, OVER 4 02/05/20 23 63938-TWVP SKIN LESIONS, OVER 4 11/21/19 24 01533-GKDV SKIN LESIONS, OVER 4 06/13/19 24 99994-GJFB SKIN LESIONS, OVER 4 05/25/19 25 41294-OIQQ SKIN LESIONS, OVER 4 02/24/20 24 U6481-BWZDYAAL DYSTROPHIC NAILS ANY # N3256-RCENPRAY DYSTROPHIC NAILS ANY # D8616-XTOALPPU DYSTROPHIC NAILS ANY # D6561-MEOBSBKA DYSTROPHIC NAILS ANY # E5744-CUQYZKPN DYSTROPHIC NAILS ANY # H3758-EGIVIQKS DYSTROPHIC NAILS ANY # F3423-HPVHVIZH DYSTROPHIC NAILS ANY # L7165-PMLAZJUS DYSTROPHIC NAILS ANY # P8667-JLYWHVSU DYSTROPHIC NAILS ANY # Next Appt Details Provider Name:Fabricio Juan , 08/24/2024 02:45:00 PM, [address] [place], [address], Insurance Providers Payer Name Payer Address Payer Phone Subscriber Number Group Number Insured Name Patient Relationship to Insured Coverage Start Date Coverage End Date [employer] Preferred [address] [place] [address] [phone] [id number] Jhonny Shrestha Self - patient is the insured Medical (General) History Medical History History ICD Code asthma Diabetic type ll Lung disease Parkinsons disease Stroke Chicken pox COPD Colon CA Hypercholesterolemia Hypertension Surgical History Surgery Date(Month/Year) appendectomy gall bladder cataract surgery Hospitalization History Reason Date(Month/Year) Ultrasound both legs for veins 2021
--- OUTSIDE RECORDS SUMMARY | 2024-08-20 07:25 | XMS_ITS ---
Author Organization [facility] Address [address] [facility] [place] [address] Care Team Providers Care Agent Broker Name Role Phone Monica Darby Primary Care Provider Unavailab Fabricio Granados Unavailable [phone] Allergies No Known Allergies REASON FOR VISIT [...] Ordered Date Performed Result Body Sit e 98428-FSNUIDB NAIL, 1-02/24/2024 N/A 65928-BDHI SKIN LESIONS, OVER 4 02/24/2024 N/A P4455-MQJMKHQL DYSTROPHIC NAILS ANY # 02/24/2024 N/A Encounters Encounter Location Date Provider Diagnosis [facility] [address] [address] 02/24/2024 Fabricio Juan Type 2 diabetes mellitus [...] Treatment Pending Test Test Name Order Date 35296-FWDYVDL NAIL, 1-5 02/24/2024 96987-ILNR SKIN LESIONS, OVER 4 02/24/20 24 D6037-EGRKCWPW DYSTROPHIC NAILS ANY # Next Appt Details Follow Up: prn, Reason: Provider Name:Fabricio Juan , 08/24/2024 02:45:00 PM, [address] [place], [address], Procedure Notes * Category Sub-Category Detail Notes Keratoma Treatment Parring or Cutting o f Benign Hyperkeratotic Lesion(s) (-57) More than 4 Lesions - The Benign hyperkeratotic lesions, as described above were pared, and/or cut utilizing a sterile 15 blade, tissue nippers, and/or dremel - 70089 , Q8 Debride Nails 1-5 Procedure: Performance of this nail treatment by a nonprofessional would put this patients foot and overall health at risk. Therefore, nail debridement was performed extensively to reduce/remove overall nail length, girth, thickness, subungual debris, and necrotic tissue, by manual and/or electrical means through the use of a nail nipper and/or dremel-type barytes grinder, to a more viable healthy nail plate or bed tissue 1-5. Silver nitrate used for any petechial bleeding as necessary. Definitive antifungal treatment options have been reviewed and discussed with the patient. The patient chooses, no pharmaceutical tx - 47587 Nail Reduction Nail Reduction (-27) Trimming o f dystrophic nails performed to reduce/remove overall nail length and girth, by manual and electrical means with use of a nail nipper and/or dremel, to more viable healthy nail plate or bed tissue, any number - G0127 , Q8 Progress Notes * Jesenia CASEYOB:1940 (83 yo M)Acc No.[id number]:02/24/2024 Progress Note Patient:?Fady Jhonny Provider:?Fabricio Juan DPM :1940???Age:83 Y???Sex:Male Romel e:02/24/2024 Address:[address] [place] [address] [facility] Pcp:Monica Darby Subjective: * Chief Complaints: * [...] mellitus with diabetic peripheral angiopathy without gangrene?Procedure: 08024-LHMA SKIN LESIONS, OVER 4 ?Procedure: X6021-PFYRSSJD DYSTROPHIC NAILS ANY # * Procedures:?Debride Nails 1-5:?Procedure:?Performance of this nail treatment by a nonprofessional would put this patients foot and overall health at risk. Therefore, nail debridement was performed extensively to reduce/remove overall nail length, girth, thickness, subungual debris, and necrotic tissue, by manual and/or electrical means through the use of a nail nipper and/or dremel-type barytes grinder, to a more viable healthy nail plate or bed tissue 1-5. Silver nitrate used for any petechial bleeding as necessary. Definitive antifungal treatment options have been reviewed and discussed with the patient. The patient chooses, no pharmaceutical tx - 14752.?Keratoma Treatment:?Parring or Cutting of Benign Hyperkeratotic Lesion(s)?(-57) More than 4 Lesions - The Benign hyperkeratotic lesions, as described above were pared, and/or cut utilizing a sterile 15 blade, tissue nippers, and/or dremel - 75826 , Q8.?Nail Reduction:?Nail Reduction?(-27) Trimming of dystrophic nails performed to reduce/remove overall nail length and girth, by manual and electrical means with use of a nail nipper and/or dremel, to more viable healthy nail plate or bed tissue, any number - G0127 , Q8.? * Procedure Codes:?G0127 TIFFANIE ING DYSTROPHIC NAILS ANY #, Modifiers: XS , [id number] DEBRIDE NAIL, 1-5, Modifiers: XS 12043 TRIM SKIN LESIONS, OVER 4, Modifiers: XS [...]
--- OUTSIDE RECORDS SUMMARY | 2024-08-20 07:25 | XMS_ITS ---
Author Organization [facility] Address [address] [facility] [place] [address] Care Team Providers Care Surgical First Assistant Name Role Phone Monica Darby Primary Care Provider Unavailab Fabricio Granados Unavailable [phone] Allergies No Known Allergies REASON FOR VISIT [...] Ordered Date Performed Result Body Sit e 95695-ZFQRIUG NAIL, 1-5 05/25/2024 N/A 94267-IHAZ SKIN LESIONS, OVER 4 05/25/2024 N/A L9653-NQVKIQKW DYSTROPHIC NAILS ANY # 05/25/2024 N/A Encounters Encounter Location Date Provider Diagnosis [facility] [place] [address] [place] [address] 05/25/2024 Fabricio Juan Type 2 diabetes mellitus [...] INSTRUCTIONS.pdf) Pending Test Test Name Order Date 71503-HKETIRP NAIL, 1-5 05/25/2024 08881-TLWL SKIN LESIONS, OVER 4 05/25/19 25 J7825-FBRRQJIF DYSTROPHIC NAILS ANY # Next Appt Details Follow Up: prn, Reason: Provider Name:Fabricio Juan , 08/24/2024 02:45:00 PM, [address] [place] [address], [address], Procedure Notes * Category Sub-Category Detail Notes [...] instrumentation by the physician of record - 45693, Q8 Debride Nails 1-5 Procedure: Due to [...] necessary to maintain effective symptomatic relief - 30417 Nail Reduction Nail Reduction (-27) Trimming o [...] Notes * Jesenia CASEYOB:1940 (83 yo M)Acc No.[id number]:05/25/2024 Progress Note Patient:?Jhonny CASEY Provider:?Fabricio Juan DPM :1940???Age:83 Y???Sex:Male Romel e:05/25/2024 Address:[address] [place] [address], [facility] Pcp:Monica Darby Subjective: * Chief Complaints: * [...] Worse (4)??? Plan: * Treatment: 2.?Tinea unguium?Procedure: 19046-XIOTLLS NAIL, 1-5 3.?Other hammer toe(s) (acqu ired), [...] necessary to maintain effective symptomatic relief - 91902.?Keratoma Treatment:?Parring or Cutting of Benign Hyperkeratotic Lesion(s)?(-57) [...] instrumentation by the physician of record - 62512, Q8.?Nail Reduction:?Nail Reduction?(-27) Trimming of all dystrophic [...] DYSTROPHIC NAILS ANY #, Modifiers: XS , [id number] DEBRIDE NAIL, 1-5, Modifiers: XS 49178 TRIM SKIN LESIONS, OVER 4, Modifiers: XS [...] Juan DPM Date:?2024 Generated for Danilo moreno/Kofi/Adrian on:?08/20/2024 07:24 AM [...] structure , No Charcot collapse/destruction noted at [facility] FOOTWEAR EVALUATION: worn, OT were [...]
[2024-08-20 09:52] LABS: MANUAL DIFF FLAG NO
[2024-08-20 10:11] LABS: Basophils Absolute Auto 0.1 X10*3/uL (0.0-0.2); Basophils Percent Auto 0.6 % (0-2); Eosinophils Percent Auto 12.7 % (0-4); Hematocrit 35.2 % (42.0-52.0); Imm Gran Abs Auto 0.04 X10*3/uL (0.00-0.03); Imm Gran Pct Auto 0.5 % (0.0-0.4); Lymphocytes Absolute Auto 3.1 X10*3/uL (1.2-4.9); Lymphocytes Percent Auto 39.5 % (20-40); Mean Corpuscular HGB Conc 31.3 g/dl (31.0-36.0); Mean Corpuscular Hemoglobin 26.4 pg (27.0-33.0); Mean Corpuscular Volume 84.6 fL (80.0-98.0); Mean Platelet Volume 10.9 fL (9.4-12.4); Monocytes Absolute Auto 0.4 X10*3/uL (0.1-1.2); Monocytes Percent Auto 5.3 % (2-11); Neutrophils Absolute Auto 3.3 x10*3/uL (2.0-8.3); Neutrophils Percent Auto 41.4 % (45-73); Platelet Count 297 X10*3/uL (160-400); Red Blood Count 4.16 X10*6/uL (4.60-5.80); Red Cell Distribution Width 14.8 % (11.0-16.0); White Blood Count 7.9 X10*3/uL (4.8-10.8)
[2024-08-20 10:41] LABS: C Reactive Protein 0.24 mg/dL (< or = 0.50); Iron 33 mcg/dL (45-160); Percent Iron Saturation 14 % (15-50); Total Iron Binding Capacity 228 mcg/dL (228-428); Unsaturated Iron Binding 195 ug/dL
[2024-08-20 10:49] LABS: Ferritin 86 ng/mL (20-250)
[2024-08-20 10:50] LABS: Erythrocyte Sedimentation Rate 34 MM/HR (0-15)
[2024-08-23 22:07] LABS: Immunoglobulin A 195 mg/dL (70-320); Transglutaminase IgA <1.0 U/mL
== END 2024-08-20 07:23 | disposition home or self-care (01) ==
LOC: HO.10HDL 07:22
PROVIDERS: Visit Provider Internal Medicine
DX: R19.7 Diarrhea, unspecified (principal); D50.0 Iron deficiency anemia secondary to blood loss (chronic)
CPT/HCPCS: 36415; 82728; 82784; 83540; 85025; 85652; 86140; 86364

== ENCOUNTER 2024-08-23 07:37 | Outpatient (REF) | payer MEDICARE, SELFPAY ==
--- OUTSIDE RECORDS SUMMARY | 2024-08-23 07:40 | XMS_ITS | Patient Health Record ---
Author Organization [facility] [place] Address [address] [place] [address] Care Team Providers Care Lumber Carrier Operator Name Role Phone Monica Darby Primary Care Provider Unavailab Fabricio Granados Unavailable [phone] Allergies No Known Allergies Reason For Referral [...] Monica Referring Provider Last Name Wilner [facility] [place] Referred Provider Fabricio Juan Referred Address [address] [facility],[place], [place],[address], Referred Provider Specialty Podiatry Referral Priority Routine [...] Problem Acquired hammer toe of right foot (69594085737676 05) Other hammer toe(s) (acquired), right foot (M20.41) Active confirmed Problem Acquired hammer toe of left foot (44132361675869 03) Other hammer toe(s) (acquired), left foot (M20.42) Active confirmed Problem Type 2 diabetes mellitus with peripheral angiopathy (260108523) 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.51) Active confirmed Vital Signs Blood pressure diastolic 80 mm Hg 05/25/2024 Height 5 ft 6 in in 05/25/2024 Blood pressure systolic 120 mm Hg 05/25/2024 Weight 160 lbs 05/25/2024 BMI 25.82 kg/m2 05/25/2024 Procedures Procedure Date Ordered Date Performed Result Body Sit e 53340-VDGVAPW NAIL, 1-5 11/21/2023 N/A 18018-QJPB SKIN LESIONS, OVER 4 11/21/2023 N/A U2568-OMHAYMQO DYSTROPHIC NAILS ANY # 11/21/2023 N/A 96546-SYCEKSO NAIL, 1-5 02/24/2024 N/A 38328-FKFO SKIN LESIONS, OVER 4 02/24/2024 N/A K8218-OILNWZFF DYSTROPHIC NAILS ANY # 02/24/2024 N/A 65807-LICMUOB NAIL, 1-5 05/25/2024 N/A 33202-KEHG SKIN LESIONS, OVER 4 05/25/2024 N/A R3389-JUZXWWQS DYSTROPHIC NAILS ANY # 05/25/2024 N/A Encounters Encounter Location Date Provider Diagnosis [address] [address] 11/21/2023 Fabricio Juan Type 2 diabetes mellitus with diabetic peripheral angiopathy without gangrene E11.51 ; Tinea unguium B35.1 ; Pain in right toe(s) M79.674 ; Pain in left toe(s) M79.675 and Xerosis of skin L85.[address] [address] 02/24/2024 Fabricio Juan Type 2 diabetes mellitus with diabetic peripheral angiopathy without gangrene E11.51 ; Tinea unguium B35.1 ; Pain in right toe(s) M79.674 ; Pain in left toe(s) M79.675 and Xerosis of skin L85.[address] [address] 05/25/2024 Fabricio Parrunier Type 2 diabetes mellitus [...] X ray : Foot, left 3V 02/06/2022 63460-YVNKDPN NAIL, 1-5 05/07/2022 42632-OBBLRTZ NAIL, 1-5 01/21/2022 93804-EIDTNGZ NAIL, 1-5 08/13/2022 79398-PJGMVWK NAIL, 1-5 11/12/2022 22249-LEAQGEM NAIL, 1-5 02/04/2023 26324-VUSUHJV NAIL, 1-5 06/13/2023 02961-UREABTE NAIL, 1-5 11/21/2023 61930-BVDDKEL NAIL, 1-5 02/24/2024 17210-BUBRDGC NAIL, 1-5 05/25/2024 39668-Qcwq Destruction, 1-14 02/04/2023 44061-Jazv Destruction, 1-14 11/12/2022 31440-Ckxr Destruction, -14 08/13/2022 85746-Htnf Destruction, 1-14 01/21/2022 35638-Nwlr Destruction, 1-14 05/07/2022 43449-TGFC SKIN LESIONS, OVER 4 05/07/19 31271-NYJK SKIN LESIONS, OVER 4 01/22/20 65820-XEFQ SKIN LESIONS, OVER 4 08/14/19 23 39702-EPRX SKIN LESIONS, OVER 4 11/13/19 23 93732-VLNB SKIN LESIONS, OVER 4 02/05/20 23 79248-AHRO SKIN LESIONS, OVER 4 11/21/19 24 69082-NQPG SKIN LESIONS, OVER 4 06/13/19 24 45697-RUCN SKIN LESIONS, OVER 4 05/25/19 25 81354-YTKY SKIN LESIONS, OVER 4 02/24/20 24 P5970-RHQHEKFN DYSTROPHIC NAILS ANY # T5029-JRDGLUPM DYSTROPHIC NAILS ANY # T3888-JXGMYSEF DYSTROPHIC NAILS ANY # E7329-PMMDLCQL DYSTROPHIC NAILS ANY # J3428-SIKJHDNJ DYSTROPHIC NAILS ANY # V5089-HRVMPWRG DYSTROPHIC NAILS ANY # L9998-UBQFDPTP DYSTROPHIC NAILS ANY # Q3236-FKGGKMFD DYSTROPHIC NAILS ANY # R6110-HENVEILF DYSTROPHIC NAILS ANY # Next Appt Details Provider Name:Fabricio Juan , 08/24/2024 02:45:00 PM, [address] [place], [address], Insurance Providers Payer Name Payer Address Payer Phone Subscriber Number Group Number Insured Name Patient Relationship to Insured Coverage Start Date Coverage End Date [employer] Preferred [address] [place] [address] [id number] Jhonny Shrestha Self - patient is the insured Medical (General) History Medical History History ICD Code asthma Diabetic type ll Lung disease Parkinsons disease Stroke Chicken pox COPD Colon CA Hypercholesterolemia Hypertension Surgical History Surgery Date(Month/Year) appendectomy gall bladder cataract surgery Hospitalization History Reason Date(Month/Year) Ultrasound both legs for veins 2021
--- OUTSIDE RECORDS SUMMARY | 2024-08-23 07:40 | XMS_ITS ---
Author Organization [facility] Address [address] [facility] [place] [address] Care Team Providers Care Hand Leather Trimmer Name Role Phone Monica Darby Primary Care Provider Unavailab Fabricio Granados Unavailable [phone] Allergies No Known Allergies REASON FOR VISIT [...] Ordered Date Performed Result Body Sit e 86806-LWCMZVI NAIL, 1-5 11/21/2023 N/A 40114-XESJ SKIN LESIONS, OVER 4 11/21/2023 N/A S6295-MBSQNBPS DYSTROPHIC NAILS ANY # 11/21/2023 N/A Encounters Encounter Location Date Provider Diagnosis [facility] [address] [address] 11/21/2023 Fabricio Juan Type 2 diabetes mellitus [...] days Pending Test Test Name Order Date 33608-VABHFHR NAIL, 1-5 11/21/2023 19357-JPAE SKIN LESIONS, OVER 4 11/21/19 24 H8986-LHRJSMLC DYSTROPHIC NAILS ANY # Next Appt Details Follow Up: prn, Reason: Provider Name:Fabricio Juan , 08/24/2024 02:45:00 PM, [address] [place], [address], Procedure Notes * Category Sub-Category Detail Notes Keratoma Treatment Parring or Cutting o f Benign Hyperkeratotic Lesion(s) 10047 ( >4 Lesions) - The Benign hyperkeratotic [...] as necessary. Patient chooses, no pharmaceutical tx (67690) Nail Reduction Nail Reduction Trimming of dyst rophic nails performed to reduce/remove overall nail length and girth, by manual and electrical means with use of a nail nipper and/or dremel, to more viable healthy nail plate or bed tissue 6-10 (R5393-P6) Progress Notes * Jesenia CASEYOB:1940 (83 yo M)Acc No.[id number]:11/21/2023 Progress Note Patient:?Jhonny CASEY Provider:?Fabricio Juan DPM :1940???Age:83 Y???Sex:Male Romel e:11/21/2023 Address:[address] [place] [address] [id number] Pcp:Monica Darby Subjective: * Chief Complaints: * [...] mellitus with diabetic peripheral angiopathy without gangrene?Procedure: 41920-XPAS SKIN LESIONS, OVER 4 ?Procedure: F7287-FQWZRHQO DYSTROPHIC NAILS ANY # 3.?Xerosis of skin? [...] as necessary. Patient chooses, no pharmaceutical tx (91373).?Keratoma Treatment:?Parring or Cutting of Benign Hyperkeratotic Lesion(s)?74776 ( >4 Lesions) - The Benign hyperkeratotic [...] DYSTROPHIC NAILS ANY #, Modifiers: XS , H770447 DEBRIDE NAIL, 1-5, Modifiers: XS 83104 TRIM SKIN LESIONS, OVER 4, Modifiers: XS [...] Juan DPM Date:?2023 Generated for Danilo moreno/Kofi/Adrian on:?08/23/2024 07:40 AM EDT History and Physical Notes * [...]
--- OUTSIDE RECORDS SUMMARY | 2024-08-23 07:40 | XMS_ITS | Clinical Summary ---
Author Organization [facility] Address [address] [place] [address] Care Team Providers Care Bottom Stainer Name Role Phone Monica Darby MD Primary [...] DAILY 3 Active Lancets (OneTouch Delica Plus Auyigo22X) misc USE TO CHECK SUGARS DAILY 3 [...] patient's age to complete this topic Insurance [facility] Care Teams Bottom Stainer Relationship Specialty Start Date End Date Monica Darby MD [address] [place] [address] PCP - General Internal Medicine 05/14/22
--- OUTSIDE RECORDS SUMMARY | 2024-08-23 07:40 | XMS_ITS | Clinical Summary ---
[facility] Organization [facility] Address [address] [place] [address] Care Team Providers Care Fiscal Services Director Name Role Phone Unavailable Primary Care Provider [...]
--- OUTSIDE RECORDS SUMMARY | 2024-08-23 07:41 | XMS_ITS ---
Author Organization [facility] Address [address] [facility] [address] Care Team Providers Care Envelope Stuffer Name Role Phone Monica Darby Primary Care Provider Unavailab Fabricio Granados Unavailable [phone] Allergies No Known Allergies REASON FOR VISIT [...] Ordered Date Performed Result Body Sit e 37783-TBKMHYP NAIL, 1-5 05/25/2024 N/A 95893-WKJB SKIN LESIONS, OVER 4 05/25/2024 N/A F2389-QWLDHCLI DYSTROPHIC NAILS ANY # 05/25/2024 N/A Encounters Encounter Location Date Provider Diagnosis [facility] [place] [address] [place] [address] 05/25/2024 Fabricio Juan Type 2 diabetes mellitus [...] INSTRUCTIONS.pdf) Pending Test Test Name Order Date 01223-FCYLYAP NAIL, 1-5 05/25/2024 19446-YPPG SKIN LESIONS, OVER 4 05/25/19 25 Z8000-QRFYZTMO DYSTROPHIC NAILS ANY # Next Appt Details Follow Up: prn, Reason: Provider Name:Fabricio Juan , 08/24/2024 02:45:00 PM, [address] [place] [address], [address], Procedure Notes * Category Sub-Category Detail Notes [...] instrumentation by the physician of record - 42661, Q8 Debride Nails 1-5 Procedure: Due to [...] necessary to maintain effective symptomatic relief - 99879 Nail Reduction Nail Reduction (-27) Trimming o [...] Notes * Jesenia CASEYOB:1940 (83 yo M)Acc No.[id number]:05/25/2024 Progress Note Patient:?Jhonny CASEY Provider:?Fabricio Juan DPM :1940???Age:83 Y???Sex:Male Romel e:05/25/2024 Address:[address] [place] [address], [facility] Pcp:Monica Darby Subjective: * Chief Complaints: * [...] Worse (4)??? Plan: * Treatment: 2.?Tinea unguium?Procedure: 52253-JLZNTJS NAIL, 1-5 3.?Other hammer toe(s) (acqu ired), [...] necessary to maintain effective symptomatic relief - 97987.?Keratoma Treatment:?Parring or Cutting of Benign Hyperkeratotic Lesion(s)?(-57) [...] instrumentation by the physician of record - 44165, Q8.?Nail Reduction:?Nail Reduction?(-27) Trimming of all dystrophic [...] DYSTROPHIC NAILS ANY #, Modifiers: XS , Q173224 DEBRIDE NAIL, 1-5, Modifiers: XS 77533 TRIM SKIN LESIONS, OVER 4, Modifiers: XS [...] Juan DPM Date:?2024 Generated for Danilo moreno/Kofi/Adrian on:?08/23/2024 07:40 AM [...] structure , No Charcot collapse/destruction noted at [facility] FOOTWEAR EVALUATION: worn, OT were inspe [...]
--- OUTSIDE RECORDS SUMMARY | 2024-08-23 07:41 | XMS_ITS ---
Author Organization [facility] Address [address] [facility] [place] [address] Care Team Providers Care Enterprise Application Analyst Name Role Phone Monica Darby Primary Care Provider Unavailab Fabricio Granados Unavailable [phone] Allergies No Known Allergies REASON FOR VISIT [...] Ordered Date Performed Result Body Sit e 56753-MCJBJMY NAIL, 1-02/24/2024 N/A 27631-MTMS SKIN LESIONS, OVER 4 02/24/2024 N/A Z6904-CSQWYXXP DYSTROPHIC NAILS ANY # 02/24/2024 N/A Encounters Encounter Location Date Provider Diagnosis [facility] [address] [address] 02/24/2024 Fabricio Juan Type 2 diabetes mellitus [...] Treatment Pending Test Test Name Order Date 42164-MTRYDQZ NAIL, 1-5 02/24/2024 85210-INJF SKIN LESIONS, OVER 4 02/24/20 24 U9334-EIHPTVVY DYSTROPHIC NAILS ANY # Next Appt Details Follow Up: prn, Reason: Provider Name:Fabricio Juan , 08/24/2024 02:45:00 PM, [address] [place], [address], Procedure Notes * Category Sub-Category Detail Notes Keratoma Treatment Parring or Cutting o f Benign Hyperkeratotic Lesion(s) (-57) More than 4 Lesions - The Benign hyperkeratotic lesions, as described above were pared, and/or cut utilizing a sterile 15 blade, tissue nippers, and/or dremel - 99289 , Q8 Debride Nails 1-5 Procedure: Performance of this nail treatment by a nonprofessional would put this patients foot and overall health at risk. Therefore, nail debridement was performed extensively to reduce/remove overall nail length, girth, thickness, subungual debris, and necrotic tissue, by manual and/or electrical means through the use of a nail nipper and/or dremel-type tool and cutter grinder, to a more viable healthy nail plate or bed tissue 1-5. Silver nitrate used for any petechial bleeding as necessary. Definitive antifungal treatment options have been reviewed and discussed with the patient. The patient chooses, no pharmaceutical tx - 45212 Nail Reduction Nail Reduction (-27) Trimming o f dystrophic nails performed to reduce/remove overall nail length and girth, by manual and electrical means with use of a nail nipper and/or dremel, to more viable healthy nail plate or bed tissue, any number - G0127 , Q8 Progress Notes * Jesenia CASEYOB:1940 (83 yo M)Acc No.[id number]:02/24/2024 Progress Note Patient:?Fady Jhonny Provider:?Fabricio Juan DPM :1940???Age:83 Y???Sex:Male Romel e:02/24/2024 Address:[address] [place] [address] [id number] Pcp:Monica Darby Subjective: * Chief Complaints: * [...] mellitus with diabetic peripheral angiopathy without gangrene?Procedure: 49602-OSYZ SKIN LESIONS, OVER 4 ?Procedure: J9891-YHOZPTUE DYSTROPHIC NAILS ANY # * Procedures:?Debride Nails 1-5:?Procedure:?Performance of this nail treatment by a nonprofessional would put this patients foot and overall health at risk. Therefore, nail debridement was performed extensively to reduce/remove overall nail length, girth, thickness, subungual debris, and necrotic tissue, by manual and/or electrical means through the use of a nail nipper and/or dremel-type tool and cutter grinder, to a more viable healthy nail plate or bed tissue 1-5. Silver nitrate used for any petechial bleeding as necessary. Definitive antifungal treatment options have been reviewed and discussed with the patient. The patient chooses, no pharmaceutical tx - 57594.?Keratoma Treatment:?Parring or Cutting of Benign Hyperkeratotic Lesion(s)?(-57) More than 4 Lesions - The Benign hyperkeratotic lesions, as described above were pared, and/or cut utilizing a sterile 15 blade, tissue nippers, and/or dremel - 46577 , Q8.?Nail Reduction:?Nail Reduction?(-27) Trimming of dystrophic nails performed to reduce/remove overall nail length and girth, by manual and electrical means with use of a nail nipper and/or dremel, to more viable healthy nail plate or bed tissue, any number - G0127 , Q8.? * Procedure Codes:?G0127 TIFFANIE ING DYSTROPHIC NAILS ANY #, Modifiers: XS , [id number] DEBRIDE NAIL, 1-5, Modifiers: XS 60303 TRIM SKIN LESIONS, OVER 4, Modifiers: XS [...]
[2024-08-23 10:51] LABS: CDiff Gene PCR NEGATIVE (Negative)
[2024-08-23 12:21] LABS: Adenovirus F 40/41 Not Detected (Not Detect.); Astrovirus Not Detected (Not Detect.); Campylobacter Not Detected (Not Detect.); Cryptosporidium Not Detected (Not Detect.); Cyclospora cayetanensis Not Detected (Not Detect.); E. coli EAEC Not Detected (Not Detect.); E. coli EPEC Not Detected (Not Detect.); E. coli ETEC Not Detected (Not Detect.); E. coli STEC Not Detected (Not Detect.); Entamoeba histolytica Not Detected (Not Detect.); Giardia lamblia Not Detected (Not Detect.); Norovirus GI/GII Not Detected (Not Detect.); Plesiomonas shigelloides Not Detected (Not Detect.); Rotavirus A Not Detected (Not Detect.); Salmonella Not Detected (Not Detect.); Sapovirus Not Detected (Not Detect.); Shigella sp./EIEC Not Detected (Not Detect.); Vibrio Not Detected (Not Detect.); Vibrio Cholerae Not Detected (Not Detect.); Yersinia enterocolitica Not Detected (Not Detect.)
[2024-08-27 18:48] LABS: Calprotectin, Fecal 192 mcg/g
== END 2024-08-23 07:38 | disposition home or self-care (01) ==
LOC: HO.10HDLNP 07:37
PROVIDERS: Visit Provider Internal Medicine
DX: R19.7 Diarrhea, unspecified (principal); D50.0 Iron deficiency anemia secondary to blood loss (chronic)
CPT/HCPCS: 83993; 87493; 87507

== ENCOUNTER 2024-08-30 07:27 | Outpatient (REF) | payer MEDICARE, SELFPAY ==
--- OUTSIDE RECORDS SUMMARY | 2024-08-30 07:30 | XMS_ITS ---
Author Organization [facility] Address [address] [place] [address] Care Team Providers Care Automobile Repair Service Estimator Name Role Phone Monica Darby Primary Care Provider Unavailab Julio Cesar Vides [phone] REASON FOR VISIT PLEASE LOCK NOTE FROM 04-27-24 Encounters Encounter Location Date Provider Diagnosis [facility] [address] [place] [address] 07/13/2024 Julio Cesar Chaparro Plan Of Treatment No Information Progress Notes * RONALD CASEYOB:1940 (83 yo M)Acc No.[id number]:07/13/2024 Patient:?LOPEZ CASEY :1940???Age:83 Y???Sex:Male Address:[address] [place] [address], [address] * true * Date:? Generated for Danilo moreno/Kofi/eTransmitting on:?08/30/2024 07:29 AM EDT
--- OUTSIDE RECORDS SUMMARY | 2024-08-30 07:30 | XMS_ITS ---
Author Organization [facility] Address [address] [place] [address] Care Team Providers Care [facility] A[facility] Assistants Teacher Name Role Phone Puneetgary Monica Primary Care Provider UnavailJulio Cesar Ba Unavailable [phone] Allergies No Known Allergies Results Component Value Reference Range Notes Calprotectin, Fecal (Not yet reviewed by provider) Interpretation: Performing Lab:[facility], [address] [place] [phone] Notes/Report: Calprotectin, Fecal 192 Reference Range: <50 Normal 50-120 Borderline >120 Elevated Calprotectin in Crohn's disease and ulcerative colitis can be five to several thousand times above the reference population (50 mcg/g or less). Levels are usually 50 mcg/g or less in healthy patients and with irritable bowel syndrome. Repeat testing in 4-6 weeks is suggested for borderline values. THIS TEST WAS PERFORMED AT: [employer]/[facility] [address] [place] [address] JOEL JUAREZ MD,PHD,TERESO Ferritin Reviewed date:08/21/2024 10:07:00 PM Interpretation: Performing Lab:[facility], [address] [place] [phone] Notes/Report: Ferritin 86 20-250 ng/mL GI PANEL Reviewed date:08/25/2024 07:32:48 AM Interpretation: Performing Lab:[facility], [address] [place] [phone] Notes/Report: Campylobacter Not Detected Not Detect. Plesiomonas shigelloides Not Detected Not Detect. Salmonella Not Detected Not Detect. Vibrio Not Detected Not Detect. Vibrio Cholerae Not Detected Not Detect. Yersinia enterocolitica Not Detected Not Detect. E. coli EAEC Not Detected Not Detect. E. coli EPEC Not Detected Not Detect. E. coli ETEC Not Detected Not Detect. E. coli STEC Not Detected Not Detect. E. coli O157 Not applicable Not Detect. E. coli containing the O157 antigen are a subset of Shiga-like toxin-producing E. coli (STEC). Shigella sp./EIEC Not Detected Not Detect. Cryptosporidium Not Detected Not Detect. Cyclospora cayetanensis Not Detected Not Detect. Entamoeba histolytica Not Detected Not Detect. Giardia lamblia Not Detected Not Detect. Adenovirus F 40/41 Not Detected Not Detect. Astrovirus Not Detected Not Detect. Norovirus GI/GII Not Detected Not Detect. Rotavirus A Not Detected Not Detect. Sapovirus Not Detected Not Detect. All results must be correlated with clinical findings. Negative results do not exclude the possibility of gastrointestinal infection and should not be used as the sole basis for diagnosis, treatment, or other management decisions. Virus, bacteria, and parasite nucleic acid may persist in vivo independently of organism viability. Additionally, some organisms may be carried asymptomatically. Detection of organism targets does not imply that the corresponding organisms are infectious or are the causative agents for clinical symptoms. There is a risk of false negative values due to the presence of sequence variants in the gene targets of the assay, amplification inhibitors in specimens, or inadequate numbers of organisms for amplification. The identification of several diarrheagenic E. coli pathotypes has historically relied upon phenotypic characteristics. This panel targets genetic determinants characteristic of most pathogenic strains, but may not detect all strains having phenotypic characteristics of a pathotype. The performance of this test has not been established for monitoring treatment of infection with any of the panel organisms. This assay is performed by Multiplexed PCR, utilizing the [employer] Array. REASON FOR VISIT patient presents today for constant diarrhea Medications Medication SIG (Take, Route, Frequency, Duration) Notes Start Date End Date Status Simvastatin 40 MG 1 tablet in the even ing Orally Once a day Active Flonase Active ProAir HFA Active Lisinopril-hydroCHLOROthiaz joseluis 20-12.5 MG 1 tablet Orally Once a day for 30 day(s) Active Aspir-Low 81 MG 1 tablet Orally Once a day for 30 day(s) Active Calcium + D Active Loperamide HCl 2 MG 1 tablet as needed O rally 1 after loose stool Active Finasteride 5 MG 1 tablet Orally Once a day for 30 day(s) Active Imodium A-D 2 MG 1 tablet as needed O rally prn prn Active Mucinex DM 30-600 MG 1 tablet as needed Orally every 12 hrs Active Famotidine 40 MG 1 tablet Orally Once a day Active ZyrTEC Allergy 10 MG 1 tablet Orally Onc e a day for 30 day(s) Active Breo Ellipta 100-25 MCG/INH 1 puff Inhal ation Once a day Active glipiZIDE 5 MG 1 tablet Orally Once a day Active Social History Tobacco Use: Social History [...] sig alcohol Vital Signs Blood pressure systolic 111 mm Hg 08/20/19 25 Blood pressure diastolic 77 mm Hg 025 Height 69 in 08/19/2024 Weight 159 lbs 08/19/2024 BMI 23.48 kg/m2 08/19/2024 Encounters Encounter Location Date Provider Diagnosis [facility] [address] [facility] [address] [place] [phone] 08/19/2024 Julio Cesar Chaparro Diarrhea, unspecifie d type R19.7 and Iron deficiency anemia due to chronic blood loss D50.0 Assessments Encounter Date Diagnosis (ICD Code) Assessment Notes Treatment Notes Treatment Clinical Notes Section Notes 08/19/2024 Diarrhea, unspecified type (ICD-10 - R19.7) Use the Loperamide(Im odium) 2 every morning when you get up and another 2 every day at Noon. Then use it after that as needed. Stop if you get constipated. Call me if things remain a propblem with the diarrhea Overall, Lopez appears well from a clinical standpoint. Other than his intermittent diarrhea which is bothersome to him, he is not having any other worrisome symptoms such as bleeding, abdominal pain, anorexia, or weight loss. His diarrhea has been intermittent although longstanding in nature. Given his age and good clinical appearance, and the negative colonoscopy in 2019, I am inclined to hold off on a colonoscopy for at least the time being. I have recommended we obtain the below stool specimens and laboratories for further assessment. I have reviewed with him that I would like him to increase his loperamide to 2 every morning and 2 every day at noon on a regular basis, and then as needed thereafter later in the day. I shall await the results of his stool specimens and laboratory results. If everything returns as normal and he is symptomatically improved on the increased loperamide then I do not think he would need any further evaluation. On the other hand, if the symptoms persist with a negative workup and despite increasing the loperamide, then we could contemplate repeating a colonoscopy as well as adding a trial of cholestyramine to see if that gives him any symptomatic relief since he has had a previous cholecystectomy that might be causing some bile-induced diarrhea. I did advise Lopez to keep me posted as to how he is doing and to definitely call me if things remain problematic despite the negative workup and increasing loperamide. Lopez was comfortable with this plan. Thank you again for allowing me to participate in Lopez's care. I shall continue to keep you advised of his progress as needed. 08/19/2024 Iron deficiency anemia due to chronic blood loss (ICD-10 - D50.0) Overall, Lopez appears well from a clinical standpoint. Other than his intermittent diarrhea which is bothersome to him, he is not having any other worrisome symptoms such as bleeding, abdominal pain, anorexia, or weight loss. His diarrhea has been intermittent although longstanding in nature. Given his age and good clinical appearance, and the negative colonoscopy in 2019, I am inclined to hold off on a colonoscopy for at least the time being. I have recommended we obtain the below stool specimens and laboratories for further assessment. I have reviewed with him that I would like him to increase his loperamide to 2 every morning and 2 every day at noon on a regular basis, and then as needed thereafter later in the day. I shall await the results of his stool specimens and laboratory results. If everything returns as normal and he is symptomatically improved on the increased loperamide then I do not think he would need any further evaluation. On the other hand, if the symptoms persist with a negative workup and despite increasing the loperamide, then we could contemplate repeating a colonoscopy as well as adding a trial of cholestyramine to see if that gives him any symptomatic relief since he has had a previous cholecystectomy that might be causing some bile-induced diarrhea. I did advise Lopez to keep me posted as to how he is doing and to definitely call me if things remain problematic despite the negative workup and increasing loperamide. Lopez was comfortable with this plan. Thank you again for allowing me to participate in Lopez's care. I shall continue to keep you advised of his progress as needed. Plan Of Treatment Treatment Notes Assessment Notes Diarrhea, unspecified type Use the Stanislaw amide(Imodium) 2 every morning when you get up and another 2 every day at Noon. Then use it after that as needed. Stop if you get constipated. Call me if things remain a propblem with the diarrhea Pending Test Test Name Order Date IRON + IBC (FE) 08/19/2024 CRP 08/19/2024 CBC w DIFF 08/19/2024 SED RATE (ESR) 08/19/2024 C DIFFICILE RFLX PCR 08/19/2024 Celiac Panel 10 08/19/2024 Calprotectin, Fecal 08/19/2024 Next Appt Details Follow Up: prn, Reason: Progress Notes * RONALD CASEYOB:1940 (83 yo M)Acc No.[id number]:08/19/2024 Progress Notes Patient:?LOPEZ CASEY Provider:?Julio Cesar Chaparro MD :1940???Age:83 Y???Sex:Male Romel e:08/19/2024 Address:[address] [place], [place] [id number] Pcp:Monica Darby Subjective: * Chief Complaints: * ???1. Patient presents today for constant diarrhea. * HPI: ???incontinence:? I saw a Lopez in follow-up today in regard to his issues with diarrhea. I last saw Lopez in April. At that time he described that his diarrhea was not particularly problematic. He has had a longstanding history of intermittent diarrhea. He did have a negative colonoscopy back in 2019. He describes that at least over the past month or 2 it seems that his diarrhea has been daily and more problematic with some urgency. He has not noticed any hematochezia nor melena. He enjoys a good appetite and denies any significant heartburn, dysphagia, nausea, nor vomiting. He denies any abdominal pain, jaundice, fevers, nor unintentional weight loss. He denies using any significant amounts of dairy products or caffeine products during the day. He has not been on any recent antibiotics nor has he had any travel. He denies any ill contacts in regard to diarrhea.. He has been using Imodium daily. He describes a regimen of 2 every morning on a regular basis when he gets up. However, he does not use anymore until later in the day when he experiences some diarrhea. He does describe a fairly normal stool in the morning but then the diarrhea as the day progresses. He denies any known family history of inflammatory bowel disease or GI malignancy. Laboratories earlier this year revealed normal electrolytes, some renal insufficiency with a BUN of 42 and creatinine of 1.6, and a normal liver profile with an albumin of 4.1. A CBC from last year showed a hemoglobin of 13.4 with a normal MCV. * Medical History:?Strokes--se Dr. Ornelas, NIDDM, Hypertension, Asthma, COPD, Denies NC,renal disease, Iron deficiency anemia-he was hospitalized in August of 2018 with a [...] subsequent to that hospitalization in August as well., Prostate cancer - Dr. Beatty. * Surgical History:?Appendecto my , Cholecystectomy , Tonsils and Adenoids . * Family History:?Father: dece ased, diagnosed with Heart disease.?Mother: .? No known fam hx of colon cancer. * Social History:?Tobacco Use:?Tobacco Use/Smoking?Patient is a?former smoker,?How long has it been since you last smoked??1-5 years.?Drugs/Alcohol:?Alcohol Screen?Did you have a drink containing alcohol in the past year??No,?Points?0,?Interpretation?Negative.?Miscellaneous:?Marital status: . Occupation: Retired. ???Nonsmoker; no sig alcohol. * Medications:?Taking Calcium + D , Taking Loperamide HCl 2 MG Tablet 1 tablet as needed Orally 1 after loose stool , Taking Finasteride 5 MG Tablet 1 tablet Orally Once a day , Taking ProAir HFA , Taking Lisinopril-hydroCHLOROthiazide 20-12.5 MG Tablet 1 tablet Orally Once a day , Taking Flonase , Taking Simvastatin 40 MG Tablet 1 tablet in the evening Orally Once a day , Taking glipiZIDE 5 MG Tablet 1 tablet Orally Once a day , Taking Breo Ellipta 100-25 MCG/INH Aerosol Powder Breath Activated 1 puff Inhalation Once a day , Taking Mucinex DM 30-600 MG Tablet Extended Release 12 Hour 1 tablet as needed Orally every 12 hrs , Taking Imodium A-D 2 MG Tablet 1 tablet as needed Orally prn , Notes to Pharmacist: prn, Taking ZyrTEC Allergy 10 MG Tablet 1 tablet Orally Once a day , Taking Famotidine 40 MG Tablet 1 tablet Orally Once a day , Taking Aspir-Low 81 MG Tablet Delayed Release 1 tablet Orally Once a day , Discontinued Pepcid 40 MG Tablet 1 tablet at bedtime as needed Orally Once a day , Discontinued Omeprazole 20 MG Capsule Delayed Release 1 capsule Orally Once a day , Medication List reviewed and reconciled with the patient * Allergies:?N.K.D.A. Objective: * Vitals:?Wt:159lbs, Ht: 69 in , BMI:23.48Index, BP:111/77mm Hg, Wt-k.12. Assessment: * Assessment: 1.?Diarrhea, unspecified typ e - R19.7 (Primary)???2.?Iron deficiency anemia due to chronic blood loss - D50.0??? Overall, Lopez appears well fr om a clinical standpoint. Other than his intermittent diarrhea which is bothersome to him, he is not having any other worrisome symptoms such as bleeding, abdominal pain, anorexia, or weight loss. His diarrhea has been intermittent although longstanding in nature. Given his age and good clinical appearance, and the negative colonoscopy in 2019, I am inclined to hold off on a colonoscopy for at least the time being. I have recommended we obtain the below stool specimens and laboratories for further assessment. I have reviewed with him that I would like him to increase his loperamide to 2 every morning and 2 every day at noon on a regular basis, and then as needed thereafter later in the day. I shall await the results of his stool specimens and laboratory results. If everything returns as normal and he is symptomatically improved on the increased loperamide then I do not think he would need any further evaluation. On the other hand, if the symptoms persist with a negative workup and despite increasing the loperamide, then we could contemplate repeating a colonoscopy as well as adding a trial of cholestyramine to see if that gives him any symptomatic relief since he has had a previous cholecystectomy that might be causing some bile-induced diarrhea. I did advise Lopez to keep me posted as to how he is doing and to definitely call me if things remain problematic despite the negative workup and increasing loperamide. Lopez was comfortable with this plan. Thank you again for allowing me to participate in Lopez's care. I shall continue to keep you advised of his progress as needed. Plan: * Treatment: ? Value Reference Range ?Calprotectin, Fecal 192 A - m cg/g ?LAB: Ferritin (Collection Date & Time - 08/20/2024 07:32 AM)* ? Value Reference Range ?Ferritin 86 20-250 - ng/mL ?LAB: GI PANEL (Collection Date & Time - 08/22/2024 08:25 PM)* ? Value Reference Range ?Campylobacter Not Detected Not Detec t. - * ?Plesiomonas shigelloides Not Detected Not Detect. - * ?Salmonella Not Detected Not Detect. - * ?Vibrio Not Detected Not Detect. - * ?Vibrio cholerae Not Detected Not Det ect. - * ?Yersinia enterocolitica Not Detected Not Detect. - * ?E. coli EAEC Not Detected Not Detect . - * ?E. coli EPEC Not Detected Not Detect . - * ?E. coli ETEC Not Detected Not Detect . - * ?E. coli STEC Not Detected Not Detect . - * ?E coli O157 Not applicable Not Detec t. - * ?Shigella sp./EIEC Not Detected Not D etect. - * ?Cryptosporidium Not Detected Not Det ect. - * ?Cyclospora cayetanesis Not Detected Not Detect. - * ?Entamoeba histolytica Not Detected N ot Detect. - * ?Giardia lamblia Not Detected Not Det ect. - * ?Adenovirus F 40/41 Not Detected Not Detect. - * ?Astrovirus Not Detected Not Detect. - * ?Norovirus GI/GII Not Detected Not De tect. - * ?Rotavirus A Not Detected Not Detect. - * ?Sapovirus Not Detected Not Detect. - * Julio Cesar Chaparro 08/23/2024 1 0:55:37 PM EDT > Please advise all labs are OK and the stool specimens are negative for infection. He can continue the same plan as we discussed at his recent OV. ThanksApril Allen 08/25/2024 07:32:23 AM EDT > I mailed the pt a result letter with all of this info. Thanks Notes: Use the Loperamide(Imodium) 2 every morning when you get up and another 2 every day at Noon.Then use it after that as needed. Stop if you get constipated. Call me if things remain a propblem with the diarrhea??2.?Iron deficiency anemia due to chronic blood loss?LAB: IRON + IBC (FE) ?LAB: CRP ?LAB: CBC w DIFF ?LAB: SED RATE (ESR) ?LAB: Celiac Panel 10 ?LAB: Ferritin (Collection Date & Time - 08/20/2024 07:32 AM)* ? Value Reference Range ?Ferritin 86 20-250 - ng/mL * Follow Up:?prn * * The named appointment provid er may or may not be the originator of this progress note, and it is not deemed complete until electronically signed by the appointment provider. Sign off status: Pending * Provider:?Julio Cesar Chaparro MD Date:? 025 Generated for Danilo moreno/Kofi/Adrina on:?08/30/2024 07:30 AM EDT History and Physical Notes * HPI (History of Present Illness) Category Sub-Category Detail Notes Category Not es incontinence I saw a Lopez in follow-up today in regard to his issues with diarrhea. I last saw Lopez in April. At that time he described that his diarrhea was not particularly problematic. He has had a longstanding history of intermittent diarrhea. He did have a negative colonoscopy back in 2018. He describes that at least over the past month or 2 it seems that his diarrhea has been daily and more problematic with some urgency. He has not noticed any hematochezia nor melena. He enjoys a good appetite and denies any significant heartburn, dysphagia, nausea, nor vomiting. He denies any abdominal pain, jaundice, fevers, nor unintentional weight loss. He denies using any significant amounts of dairy products or caffeine products during the day. He has not been on any recent antibiotics nor has he had any travel. He denies any ill contacts in regard to diarrhea.. He has been using Imodium daily. He describes a regimen of 2 every morning on a regular basis when he gets up. However, he does not use anymore until later in the day when he experiences some diarrhea. He does describe a fairly normal stool in the morning but then the diarrhea as the day progresses. He denies any known family history of inflammatory bowel disease or GI malignancy. Laboratories earlier this year revealed normal electrolytes, some renal insufficiency with a BUN of 42 and creatinine of 1.6, and a normal liver profile with an albumin of 4.1. A CBC from last year showed a hemoglobin of 13.4 with a normal MCV.
--- OUTSIDE RECORDS SUMMARY | 2024-08-30 07:30 | XMS_ITS ---
Author Organization [facility] Address [address] [facility] [place] [address] Care Team Providers Care Supervisor [place] Name Role Phone Monica Darby Primary Care Provider Unavailab Fabricio Granados Unavailable [phone] Allergies No Known Allergies REASON FOR VISIT [...] Ordered Date Performed Result Body Sit e 20563-HTPKSZI NAIL, 1-5 05/25/2024 N/A 15472-LZRW SKIN LESIONS, OVER 4 05/25/2024 N/A X1595-AXZAKPBI DYSTROPHIC NAILS ANY # 05/25/2024 N/A Encounters Encounter Location Date Provider Diagnosis [facility] [address] [place] [address] 05/25/2024 Fabricio Juan Type 2 diabetes mellitus [...] INSTRUCTIONS.pdf) Pending Test Test Name Order Date 83146-[id number] NAIL, 1-5 05/25/2024 73191-WAYL SKIN LESIONS, OVER 4 05/25/19 25 N0074-HXBKIPBS DYSTROPHIC NAILS ANY # Next Appt Details Follow Up: prn, Reason: Provider Name:Fabricio Juan , 11/26/2024 10:30:00 AM, [address] [place] [address], [phone], Procedure Notes * Category Sub-Category Detail Notes [...] instrumentation by the physician of record - 72739, Q8 Debride Nails 1-5 Procedure: Due to [...] necessary to maintain effective symptomatic relief - 53391 Nail Reduction Nail Reduction (-27) Trimming o [...] Notes * Jesenia CASEYOB:1940 (83 yo M)Acc No.[id number]:05/25/2024 Progress Note Patient:?Jhonny CASEY Provider:?Fabricio Juan DPM :1940???Age:83 Y???Sex:Male Romel e:05/25/2024 Address:[address] [place] [address], [facility] Pcp:Monica Darby Subjective: * Chief Complaints: * [...] Worse (4)??? Plan: * Treatment: 2.?Tinea unguium?Procedure: 00280-GAQMITX NAIL, 1-5 3.?Other hammer toe(s) (acqu ired), [...] necessary to maintain effective symptomatic relief - 29265.?Keratoma Treatment:?Parring or Cutting of Benign Hyperkeratotic Lesion(s)?(-57) [...] instrumentation by the physician of record - 16347, Q8.?Nail Reduction:?Nail Reduction?(-27) Trimming of all dystrophic [...] DYSTROPHIC NAILS ANY #, Modifiers: XS , [id number] DEBRIDE NAIL, 1-5, Modifiers: XS 47449 TRIM SKIN LESIONS, OVER 4, Modifiers: XS [...] Provider:?Fabricio Juan DPM Date:?2024 Generated for Danilo moreno/Kofi/Wallaceitting on:?08/30/2024 07:30 AM EDT History and Physical [...] , No Charcot collapse/destruction noted at [facility] FOOTWEAR EVALUATION: worn, OT were inspe cted [...]
--- OUTSIDE RECORDS SUMMARY | 2024-08-30 07:30 | XMS_ITS | Patient Health Record ---
[facility] Organization [facility] Jasbir Bestley Address [address] [facility] [place] [address] Care Team Providers Care Entertainment Centre Manager Name Role Phone Monica Darby Primary Care Provider Unavailab Fabricio Granados Unavailable [phone] Allergies No Known Allergies Reason For Referral [...] Monica Referring Provider Last Name Wilner Referred [facility] Aleksandar Referred Provider Fabricio Juan Referred Address [address] [facility],[place], [place],[address], Referred Provider Specialty Podiatry Referral Priority Routine [...] e a day for 30 day(s) Active Extra Depth Orthopedic Shoes, (1) Pair With (3) Pair Custom Heat Molded Multidensity Innersoles Dx: NIDDM/PVD(E11.51), Hammertoe Foot Deformity(M20.41,M20.42) , Preulcerative Skin Lesion(s)(L85.1) Wear Daily for 365 days 02/04/2023 Active Propranolol HCl 40 MG as directed Orally Active Ammonium Lactate 12 % 1 application Exte rnally Twice a day for 30 days Active immodium Active metFORMIN HCl 500 MG 1 tablet [...] Problem Acquired hammer toe of right foot (50001097716431 05) Other hammer toe(s) (acquired), right foot (M20.41) Active confirmed Problem Acquired hammer toe of left foot (17946526776258 03) Other hammer toe(s) (acquired), left foot (M20.42) Active confirmed Problem Type 2 diabetes mellitus with peripheral angiopathy (248965847) 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.51) Active confirmed Vital Signs Blood pressure diastolic 75 mm Hg 08/24/2024 Height 5 ft 6 in in 08/24/2024 Blood pressure systolic 120 mm Hg 08/24/2024 Weight 160 lbs 08/24/2024 BMI 25.82 kg/m2 08/24/2024 Procedures Procedure Date Ordered Date Performed Result Body Sit e 76713-RPVKSOK NAIL, 1-5 11/21/2023 N/A 48454-IWRR SKIN LESIONS, OVER 4 11/21/2023 N/A T5991-MDFBYIZP DYSTROPHIC NAILS ANY # 11/21/2023 N/A 04336-TFBRRCK NAIL, 1-5 02/24/2024 N/A 41611-RTJT SKIN LESIONS, OVER 4 02/24/2024 N/A V2878-FMJWOBNO DYSTROPHIC NAILS ANY # 02/24/2024 N/A 67261-MWGEQDK NAIL, 1-5 05/25/2024 N/A 23428-SSUG SKIN LESIONS, OVER 4 05/25/2024 N/A R7344-RRAIYXUZ DYSTROPHIC NAILS ANY # 05/25/2024 N/A 50665-EQXJNYI NAIL, 1-5 08/24/2024 N/A 51237-UTPF SKIN LESIONS, OVER 4 08/24/2024 N/A Y3025-PJUJQVYS DYSTROPHIC NAILS ANY # 08/24/2024 N/A Encounters Encounter Location Date Provider Diagnosis [address] [address] 11/21/2023 Fabricio Parrunier Type 2 diabetes mellitus with diabetic peripheral angiopathy without gangrene E11.51 ; Tinea unguium B35.1 ; Pain in right toe(s) M79.674 ; Pain in left toe(s) M79.675 and Xerosis of skin L85.[address] [address] 02/24/2024 Fabricio Parrunier Type 2 diabetes mellitus with diabetic peripheral angiopathy without gangrene E11.51 ; Tinea unguium B35.1 ; Pain in right toe(s) M79.674 ; Pain in left toe(s) M79.675 and Xerosis of skin L85.[address] [address] 05/25/2024 Fabriciomariposa Juan Type 2 diabetes mellitus with diabetic peripheral angiopathy without gangrene E11.51 ; Tinea unguium B35.1 ; Pain in right toe(s) M79.674 ; Pain in left toe(s) M79.675 ; Other hammer toe(s) (acquired), right foot M20.41 and Other hammer toe(s) (acquired), left foot M20.42 [facility] [address] [place] [address] 08/24/2024 Fabricio Juan Tinea unguium B35.1 ; Type 2 diabetes mellitus with diabetic peripheral angiopathy without gangrene E11.51 ; Pain in right toe(s) M79.674 and Pain in left toe(s) M79.675 Assessments Encounter Date Diagnosis (ICD Code) Assessment [...] peripheral angiopathy without gangrene (ICD-10 - E11.51) 08/24/2024 Tinea unguium (ICD-10 - B35.1) 08/24/2024 Type 2 diabetes mellitus with diabetic peripheral angiopathy without gangrene (ICD-10 - E11.51) 08/24/2024 Pain in right toe(s) (ICD-10 - M79.674) 02/24/2024 Pain in right toe(s) (ICD-10 - M79.674) 05/25/2024 Pain in right toe(s) (ICD-10 - M79.674) 11/21/2023 Pain in right toe(s) (ICD-10 - M79.674) 11/21/2023 Pain in left toe(s) (ICD-10 - M79.675) 08/24/2024 Pain in left toe(s) (ICD-10 - M79.675) [...] X ray : Foot, left 3V 02/06/2022 34762-PXVFDWK NAIL, 1-5 05/07/2022 45812-OQRJXGH NAIL, 1-5 01/21/2022 40153-ODKIJBG NAIL, 1-5 08/13/2022 03681-MYUXAVD NAIL, 1-5 11/12/2022 39855-CRMRMWN NAIL, 1-5 02/04/2023 66369-IYBQSUZ NAIL, 1-5 06/13/2023 18792-PIBYBPM NAIL, 1-5 11/21/2023 48972-UQZNFNC NAIL, 1-5 02/24/2024 35209-IFWSUCT NAIL, 1-5 05/25/2024 14759-KOHQJYS NAIL, 1-5 08/24/2024 28608-Lkrx Destruction, -14 02/04/2023 87437-Telc Destruction, 1-14 11/12/2022 08064-Nstv Destruction, 1-14 08/13/2022 94591-Enjp Destruction, 1-14 01/21/2022 46908-Xnyw Destruction, 1-14 05/07/2022 25937-RUWW SKIN LESIONS, OVER 4 05/07/19 23 63663-TBHG SKIN LESIONS, OVER 4 01/22/20 22 25137-MQSW SKIN LESIONS, OVER 4 08/14/19 23 05325-YDXE SKIN LESIONS, OVER 4 11/13/19 23 68308-MXNA SKIN LESIONS, OVER 4 02/05/20 23 30043-IWCY SKIN LESIONS, OVER 4 11/21/19 24 62477-SYVU SKIN LESIONS, OVER 4 06/13/19 24 95054-QUWX SKIN LESIONS, OVER 4 08/25/19 25 89311-BADG SKIN LESIONS, OVER 4 05/25/19 25 44397-AMZG SKIN LESIONS, OVER 4 02/24/20 24 K1349-RALJCWFN DYSTROPHIC NAILS ANY # V4457-LGDPILWQ DYSTROPHIC NAILS ANY # W4303-QXFHUXSO DYSTROPHIC NAILS ANY # D7965-VLPEGHKN DYSTROPHIC NAILS ANY # M7591-RSWUKIRU DYSTROPHIC NAILS ANY # T9978-RFJOFGSU DYSTROPHIC NAILS ANY # C6883-HADQVNSF DYSTROPHIC NAILS ANY # H8140-DNBMWCVJ DYSTROPHIC NAILS ANY # Y1959-KERVDOXJ DYSTROPHIC NAILS ANY # O8153-UIYEBFRG DYSTROPHIC NAILS ANY # Next Appt Details Provider Name:Fabricio Juan , 11/26/2024 10:30:00 AM, [address] [place] [address], [phone], Insurance Providers Payer Name Payer Address Payer Phone Subscriber Number Group Number Insured Name Patient Relationship to Insured Coverage Start Date Coverage End Date [employer] Preferred [address] [place] [address] [phone] [id number] Jhonny Shrestha Self - patient is the insured Medical (General) History Medical History History ICD Code asthma Diabetic type ll Lung disease Parkinsons disease Stroke Chicken pox COPD Colon CA Hypercholesterolemia Hypertension Surgical History Surgery Date(Month/Year) appendectomy gall bladder cataract surgery Hospitalization History Reason Date(Month/Year) Ultrasound both legs for veins 2021
--- OUTSIDE RECORDS SUMMARY | 2024-08-30 07:30 | XMS_ITS ---
Author [facility] Address [address] [facility] [place] [address] Care Team Providers Care Auction Block Clerk Name Role Phone Monica Darby Primary Care Provider Unavailab Fabricio Granados Unavailable [phone] Allergies No Known Allergies REASON FOR VISIT [...] Ordered Date Performed Result Body Sit e 07646-ZISZWUB NAIL, 1-02/24/2024 N/A 90752-RYSY SKIN LESIONS, OVER 4 02/24/2024 N/A H7153-XVFDOZYT DYSTROPHIC NAILS ANY # 02/24/2024 N/A Encounters Encounter Location Date Provider Diagnosis [facility] [address] [address] 02/24/2024 Fabricio Juan Type 2 diabetes mellitus [...] Treatment Pending Test Test Name Order Date 10432-SENGCQP NAIL, 1-02/24/2024 35161-XIVZ SKIN LESIONS, OVER 4 02/24/20 24 K9279-TIRRDRBQ DYSTROPHIC NAILS ANY # Next Appt Details Follow Up: prn, Reason: Provider Name:Fabricio Juan , 11/26/2024 10:30:00 AM, [address] [place], [address], Procedure Notes * Category Sub-Category Detail Notes Keratoma Treatment Parring or Cutting o f Benign Hyperkeratotic Lesion(s) (-57) More than 4 Lesions - The Benign hyperkeratotic lesions, as described above were pared, and/or cut utilizing a sterile 15 blade, tissue nippers, and/or dremel - 94598 , Q8 Debride Nails 1-5 Procedure: Performance of this nail treatment by a nonprofessional would put this patients foot and overall health at risk. Therefore, nail debridement was performed extensively to reduce/remove overall nail length, girth, thickness, subungual debris, and necrotic tissue, by manual and/or electrical means through the use of a nail nipper and/or dremel-type knife setter grinder machine, to a more viable healthy nail plate or bed tissue 1-5. Silver nitrate used for any petechial bleeding as necessary. Definitive antifungal treatment options have been reviewed and discussed with the patient. The patient chooses, no pharmaceutical tx - 98621 Nail Reduction Nail Reduction (-27) Trimming o f dystrophic nails performed to reduce/remove overall nail length and girth, by manual and electrical means with use of a nail nipper and/or dremel, to more viable healthy nail plate or bed tissue, any number - G0127 , Q8 Progress Notes * Jesenia CASEYOB:1940 (83 yo M)Acc No.[id number]:02/24/2024 Progress Note Patient:?Jhonny Casey Provider:?Fabricio Juan DPM :1940???Age:83 Y???Sex:Male Romel e:02/24/2024 Address:[address] [place], [place] [address] Pcp:Monica Darby Subjective: * Chief Complaints: * [...] mellitus with diabetic peripheral angiopathy without gangrene?Procedure: 72434-WVXI SKIN LESIONS, OVER 4 ?Procedure: X4030-RYNUJJZC DYSTROPHIC NAILS ANY # * Procedures:?Debride Nails 1-5:?Procedure:?Performance of this nail treatment by a nonprofessional would put this patients foot and overall health at risk. Therefore, nail debridement was performed extensively to reduce/remove overall nail length, girth, thickness, subungual debris, and necrotic tissue, by manual and/or electrical means through the use of a nail nipper and/or dremel-type knife setter grinder machine, to a more viable healthy nail plate or bed tissue 1-5. Silver nitrate used for any petechial bleeding as necessary. Definitive antifungal treatment options have been reviewed and discussed with the patient. The patient chooses, no pharmaceutical tx - 19390.?Keratoma Treatment:?Parring or Cutting of Benign Hyperkeratotic Lesion(s)?(-57) More than 4 Lesions - The Benign hyperkeratotic lesions, as described above were pared, and/or cut utilizing a sterile 15 blade, tissue nippers, and/or dremel - 41919 , Q8.?Nail Reduction:?Nail Reduction?(-27) Trimming of dystrophic nails performed to reduce/remove overall nail length and girth, by manual and electrical means with use of a nail nipper and/or dremel, to more viable healthy nail plate or bed tissue, any number - G0127 , Q8.? * Procedure Codes:?G0127 TIFFANIE ING DYSTROPHIC NAILS ANY #, Modifiers: XS , L747858 DEBRIDE NAIL, 1-5, Modifiers: XS 71966 TRIM SKIN LESIONS, OVER 4, Modifiers: XS [...] Juan DPM Date:?2023 Generated for Danilo moreno/Kofi/Adrian on:?08/30/2024 07:30 AM EDT History and Physical Notes * HPI (History of Present Illness) Category Sub-Category Detail Notes Category Not es Skin problems Nature: dryness , scaling Location: B/L Treatments: medication ( AM Lact in ) , states adherence to recommended treatment application At Risk footcare Pt States Last PCP Visit: Date: Examination Category Sub-Category Detail Notes Category Not [...]
--- OUTSIDE RECORDS SUMMARY | 2024-08-30 07:30 | XMS_ITS | Clinical Summary ---
Author Organization [facility] Address [address] [place] [address] Care Team Providers Care Academic Tutor Name Role Phone Monica Darby MD Primary [...] DAILY 3 Active Lancets (OneTouch Delica Plus Ksrriu86K) misc USE TO CHECK SUGARS DAILY 3 [...] patient's age to complete this topic Insurance [facility] Care Teams Academic Tutor Relationship Specialty Start Date End Date Monica Darby MD [address] [place] [address] PCP - General Internal Medicine 05/14/22
--- OUTSIDE RECORDS SUMMARY | 2024-08-30 07:30 | XMS_ITS | Clinical Summary ---
[facility] Organization [facility] Address [address] [place] [address] Care Team Providers Care Foot Caster Name Role Phone Unavailable Primary Care Provider [...]
--- OUTSIDE RECORDS SUMMARY | 2024-08-30 07:31 | XMS_ITS ---
Author Organization [facility] Address [address] [place] [address] Care Team Providers Care Locker Room Supervisor Name Role Phone Monica Darby Primary Care Provider Unavailab Julio Cesar Vides [phone] REASON FOR VISIT constant diarrhea Encounters Encounter Location Date Provider Diagnosis [facility] [address] [place] [address] 08/18/2024 Julio Cesar Chaparro Plan Of Treatment No Information Progress Notes * RONALD CASEYOB:1940 (83 yo M)Acc No.[id number]:08/18/2024 Patient:?JACINTO LOPEZ :1940???Age:83 Y???Sex:Male Address:[address] [place], [address] * true * Date:? Generated for Danilo moreno/Kofi/eTransmitting on:?08/30/2024 07:30 AM EDT
--- OUTSIDE RECORDS SUMMARY | 2024-08-30 07:31 | XMS_ITS | Patient Health Record ---
Author Organization [facility] Address [address] [place] [address] Care Team Providers Care Creative Services Writer Name Role Phone Puneetgary Monica Primary Care Provider Julio Cesar Green [phone] Allergies No Known Allergies Results Component Value Reference Range Notes Ferritin Reviewed date:08/21/2024 10:07:00 PM Interpretation: Performing Lab:[facility], [address] [place] [phone] Notes/Report: Ferritin 86 20-250 ng/mL Calprotectin, Fecal (Not yet reviewed by provider) Interpretation: Performing Lab:[facility], [address] [place] [phone] Notes/Report: Calprotectin, Fecal 192 Reference Range: <50 [...] borderline values. THIS TEST WAS PERFORMED AT: [employer]/[facility] [address] [place] [address] JOEL JUAREZ MD,PHD,TERESO GI PANEL Reviewed date:08/25/2024 07:32:48 AM Interpretation: Performing Lab:[facility], [address] [place] [phone] Notes/Report: Campylobacter Not Detected Not Detect. Plesiomonas [...] is performed by Multiplexed PCR, utilizing the Krikle Array. Complete Blood Count Auto Di ff Reviewed date:08/21/2024 10:05:57 PM Interpretation: Performing Lab:[facility], [address] [place] [phone] Notes/Report: White Blood Count 7.9 4.8-10.8 X10*3/uL Red Blood Count 4.16 4.60-5.80 X10*6/uL Hemoglobin 11.0 14.0-18.0 g/dl Hematocrit 35.2 42.0-52.0 % Mean Corpuscular Volume 84.6 80.0-98.0 fL Mean Corpuscular Hemoglobin 26.4 27.0-33.0 pg Mean Corpuscular HGB Conc 31.3 31.0-36.0 g/dl Red Cell Distribution Width 14.8 11.0-16.0 % Platelet Count 297 160-400 X10*3/uL Mean Platelet Volume 10.9 9.4-12.4 fL Neutrophils Percent Auto 41.4 45-73 % Imm Gran Pct Auto 0.5 0.0-0.4 % Lymphocytes Percent Auto 39.5 20-40 % Monocytes Percent Auto 5.3 2-11 % Eosinophils Percent Auto 12.7 0-4 % Basophils Percent Auto 0.6 0-2 % NRBC Pct Auto 0.0 0.0-0.2 /100WBC Neutrophils Absolute Auto 3.3 2.0-8.3 x10*3/u L Imm Gran Abs Auto 0.04 0.00-0.03 X10*3/uL Lymphocytes Absolute Auto 3.1 1.2-4.9 X10*3/u L Monocytes Absolute Auto 0.4 0.1-1.2 X10*3/uL Eosinophils Absolute Auto 1.0 0.0-0.4 X10*3/u L Basophils Absolute Auto 0.1 0.0-0.2 X10*3/uL NRBC Abs Auto 0.000 0.0-0.012 X10*3/uL Erythrocyte Sedimentation Ra te Reviewed date:08/21/2024 10:05:25 PM Interpretation: Performing Lab:[address] [address] Notes/Report: Erythrocyte Sedimentation Rate 34 0-15 MM/HR Patients with polycythemia and many hemoglobin abnormalities may have depressed sed rates whereas patients with anemia may have elevated sed rates. IRON PROFILE Reviewed date:08/21/2024 10:05:44 PM Interpretation: Performing Lab:[address] [address] Notes/Report: Iron 33 45-160 mcg/dL Total Iron Binding Capacity 228 228-428 mcg/dL Percent Iron Saturation 14 15-50 % Unsaturated Iron Binding 195 C Reactive Protein Reviewed date:08/21/2024 10:05:37 PM Interpretation: Performing Lab:[facility], [address] [place] [phone] Notes/Report: C Reactive Protein 0.24 < or = 0.50 mg/dL Celiac Disease Panel Reviewed date:08/23/2024 10:54:56 PM Interpretation: Performing Lab:[facility], [address] [place] [phone] Notes/Report: Immunoglobulin A 195 70-320 mg/dL THIS TEST WAS PERFORMED AT: [employer] [facility] [address] [place] [phone] JES MCLAUGHLIN MD Transglutaminase IgA <1.0 Value Interpretation ----- <15.0 Antibody not detected > or = 15.0 Antibody detected Celiac Disease Panel Interp. SEE NOTE No serological evidence of celiac disease. tTG IgA may normalize in individuals with celiac disease who maintain a gluten-free diet. Consider HLA DQ2 and DQ8 testing to rule out celiac disease. Celiac disease is extremely rare in the absence of DQ2 or DQ8. CDiff Gene PCR Reviewed date:08/23/2024 10:54:06 PM Interpretation: Performing Lab:[facility], [address] [place] [phone] Notes/Report: CDiff Gene PCR NEGATIVE Negative If C. difficile strongly suspected despite one negative test, a second test may be sent vs. empiric treatment for C. difficile infection. Reason For Referral Referring Provider First Name Monica Referring Provider Last Name Wilner Referring Provider Speciality Internal M edicine Referred Organization [facility] Referred Provider Julio Cesar Chaparro Referred Address [address] [place] [address],[address],[address],[place] Referred Provider Specialty Gastroentero logy Referral Priority Routine Medications Medication SIG (Take, Route, Frequency, Duration) Notes Start Date End Date Status Simvastatin 40 MG 1 tablet in the even ing Orally Once a day Active Flonase Active Breo Ellipta 100-25 MCG/INH 1 puff Inhal ation Once a day Active glipiZIDE 5 MG 1 tablet Orally Once a day Active ProAir HFA Active Finasteride 5 MG 1 tablet Orally Once a day for 30 day(s) Active Lisinopril-hydroCHLOROthiaz joseluis 20-12.5 MG 1 tablet Orally Once a day for 30 day(s) Active Aspir-Low 81 MG 1 tablet Orally Once a day for 30 day(s) Active Calcium + D Active Imodium A-D 2 MG 1 tablet as needed O rally prn prn Active Mucinex DM 30-600 MG 1 tablet as needed Orally every 12 hrs Active Famotidine 40 MG 1 tablet Orally Once a day Active Loperamide HCl 2 MG 1 tablet as needed O rally 1 after loose stool Active ZyrTEC Allergy 10 MG 1 tablet [...] Problem Status W/U Status Risk Notes Problem 764074898 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) Active confirmed Problem 37541676 Diarrhea, unspecified type (R19.7) Active confirmed Problem 390093165 Angiodysplasia o f stomach (K31.819) Active confirmed Vital Signs Blood pressure diastolic 77 mm Hg 08/19/2024 Height 69 in 08/19/2024 Blood pressure systolic 111 mm Hg 08/19/2024 Weight 159 lbs 08/19/2024 BMI 23.48 kg/m2 08/19/2024 Encounters Encounter Location Date Provider Diagnosis [facility] [address] [place] [address] 08/19/2024 Julio Cesar Chaparro Diarrhea, unspecifie d type R19.7 and Iron deficiency anemia due to chronic blood loss D50.0 [facility] [address] [place] [address] 04/27/2024 Julio Cesar Chaparro Diarrhea, unspecifie d type R19.7 and Iron deficiency anemia due to chronic blood loss D50.0 [facility] [address] [place] [address] 07/13/2024 Julio Cesar Chaparro [facility] [address] [place] [address] 08/18/2024 Julio Cesar Chaparro Assessments Encounter Date Diagnosis (ICD Code) Assessment Notes Treatment Notes Treatment Clinical Notes Section Notes 08/19/2024 Diarrhea, unspecified type (ICD-10 - R19.7) Use the Loperamide(Imod ium) 2 every morning when you get up [...] you advised of his progress as needed. 04/27/2024 Iron deficiency anemia due to chronic [...] of any further assistance in the future. 08/19/2024 Iron deficiency anemia due to chronic [...] his progress as needed. Plan Of Treatment Pending Test Test Name Order Date IRON + IBC (FE) 09/28/2018 IRON + IBC (FE) 08/19/2024 IRON + IBC (FE) 08/25/2018 IRON + IBC (FE) 05/20/2019 FERRITIN 09/28/2018 FERRITIN 08/25/2018 FERRITIN 05/20/2019 CRP 08/19/2024 CBC w DIFF 05/20/2019 CBC w DIFF 09/28/2018 CBC w DIFF 08/19/2024 CBC w DIFF 08/25/2018 SED RATE (ESR) 08/19/2024 C DIFFICILE RFLX PCR 08/19/2024 Celiac Panel 10 08/19/2024 Calprotectin, Fecal 08/19/2024 Insurance Providers Payer Name Payer Address Payer Phone Subscriber Number Group Number Insured Name Patient Relationship to Insured Coverage Start Date Coverage End Date [employer] PREFERRED [address] [place] [phone] [id number] LOPEZ CASEY Self - patient is the insured Medical (General) History Medical History History ICD Code Strokes--sees Dr. Ornelas NIDDM Hypertension Asthma COPD Denies NC,renal disease Iron deficiency anemia-he wa s hospitalized [...] - Dr. Beatty Surgical History Surgery Date(Month/Year) Tonsils and Adenoids Cholecystectomy Appendectomy
--- OUTSIDE RECORDS SUMMARY | 2024-08-30 07:31 | XMS_ITS ---
Author Organization [facility] Address [address] [facility] [[email or web address]] [place] [address] Care Team Providers Care Or Manager Name Role Phone Monica Darby Primary Care Provider Unavailab Fabricio Granados Unavailable [phone] Allergies No Known Allergies REASON FOR VISIT At Risk Footcare, Painful Nail(s) aggrevated by shoes and causing difficulty standing/walking. Medications Medication SIG (Take, Route, Frequency, Duration) Notes Start Date End Date Status Mucinex DM 30-600 MG as directed Orally Active Breo Ellipta 100-25 MCG/INH as directed Inhalation Activ e glipiZIDE 5 MG 1 tablet 30 minutes before breakfast Orally Once a day for 30 day(s) Active immodium Active Famotidine 40 MG 1 tablet [...] Twice a day for 30 days Active metFORMIN HCl 500 MG 1 tablet with a alfonso l Orally Once a day for 30 day(s) Not-Taking Clopidogrel Bisulfate 75 MG 1 tablet Orally Once a day for 30 day(s) Active Lisinopril 5 MG 1 tablet Orally Once a day for 30 day(s) Active Sertraline HCl 25 MG 1 tablet Orally Onc e a day for 30 day(s) Active Social History Tobacco use other than smoking: Question Answer Notes Are you an other tobacco user? No AUDIT-C (Standard) Question Answer Notes Did you have a drink containing alcohol in the p ast year? No Points 0 Interpretation Negative Vital Signs Height 5 ft 6 in in 08/24/2024 Weight 160 lbs 08/24/2024 BMI 25.82 kg/m2 08/24/2024 Blood pressure systolic 120 mm Hg 08/25/19 25 Blood pressure diastolic 75 mm Hg 025 Procedures Procedure Date Ordered Date Performed Result Body Sit e 63163-WZFHCBC NAIL, 1-08/24/2024 N/A 64986-BRMD SKIN LESIONS, OVER 4 08/24/2024 N/A A0452-RWAOBCYH DYSTROPHIC NAILS ANY # 08/24/2024 N/A Encounters Encounter Location Date Provider Diagnosis [facility] [address] [address] 08/24/2024 Fabricio Juan Tinea unguium B35.1 ; Type 2 diabetes mellitus with diabetic peripheral angiopathy without gangrene E11.51 ; Pain in right toe(s) M79.674 and Pain in left toe(s) M79.675 Assessments Encounter Date Diagnosis (ICD Code) Assessment Notes Treatment Notes Treatment Clinical Notes Section Notes 08/24/2024 Tinea unguium (ICD-10 - B35.1) 08/24/2024 Type 2 diabetes mellitus with diabetic peripheral angiopathy without gangrene (ICD-10 - E11.51) 08/24/2024 Pain in right toe(s) (ICD-10 - M79.674) 08/24/2024 Pain in left toe(s) (ICD-10 - M79.675) Plan Of Treatment Pending Test Test Name Order Date 22934-QTOISGK NAIL, 1-08/24/2024 47560-VWBD SKIN LESIONS, OVER 4 08/25/19 25 R3810-TUOVTHJY DYSTROPHIC NAILS ANY # Next Appt Details Follow Up: prn, Reason: Provider Name:Fabricio Juan , 11/26/2024 10:30:00 AM, [address] [place], [address], Procedure Notes * Category Sub-Category Detail Notes [...] instrumentation by the physician of record - 60156, Q8 Debride Nails 1-5 Procedure: Due to [...] necessary to maintain effective symptomatic relief - 57459 Nail Reduction Nail Reduction (-27) Trimming o [...] Notes * Jesenia CASEYOB:1940 (83 yo M)Acc No.[id number]:08/24/2024 Progress Note Patient:?Jhonny CASEY Provider:?Fabricio Juan DPM :1940???Age:83 Y???Sex:Male Romel e:08/24/2024 Address:[address] [place] [address] Pcp:Monica Darby Subjective: * Chief Complaints: * ???At Risk FootcarePainful N ail(s) aggrevated by shoes and causing difficulty standing/walking. * HPI: ???At Risk footcare:?Pt States Last PCP Visit:?Date?06/09/2024 * ROS:?General/Constitutional:?Nausea?denies.?Vomiting?denies.?Hunger Thirst?denies.?Loss appetite?denies.?Chills?denies.?Fatigue?denies.?Fever?denies.?Night Sweats?denies.?Unexplained weight loss?denies.?Unexplained [...] than smoking?Are you an other tobacco user??No ???Drugs/Alcohol:?Drugs?Have you used drugs other than those [...] reviewed and reconciled with the patient * Allergies:?N.K.D.A.yes[Carie patel Verified] Objective: * Vitals:?Ht: 5 ft 6 in, Wt:16 0, BMI: 25.82, Shoe size:9, BP:120/75mm Hg, BS:150, Wt-k.58 kg. * ???Past Orders: ???Lab:HEMOGLOBIN A1C [...] SUB MTH (s), 5, B/L ,Plantar, Heel(s), B/L.? Assessment: * Assessment: 1.?Tinea unguium - B35.1???2 .?Type 2 diabetes mellitus with diabetic peripheral angiopathy without gangrene - E11.51 (Primary)???3.?Pain in right toe(s) - M79.674???4.?Pain in left toe(s) - M79.675??? Plan: * Treatment: 2.?Tinea unguium?Procedure: 88470-OGBEIGF NAIL, 1-5 * Procedures:?Debride Nails 1-5:?Procedure:?Due to the clinical [...] necessary to maintain effective symptomatic relief - 75943.?Keratoma Treatment:?Parring or Cutting of Benign Hyperkeratotic Lesion(s)?(-57) [...] instrumentation by the physician of record - 95699, Q8.?Nail Reduction:?Nail Reduction?(-27) Trimming of all dystrophic [...] DYSTROPHIC NAILS ANY #, Modifiers: XS , Z095377 DEBRIDE NAIL, 1-5, Modifiers: XS 76602 TRIM SKIN LESIONS, OVER 4, Modifiers: XS , Q8 * Follow Up:?prn * Images: * Sign off status: Completed true * Provider:?Fabricio Juan DPM Date:?2024 Generated for Danlio moreno/Kofi/Adrian on:?08/30/2024 07:30 AM EDT History and Physical Notes * HPI (History of Present Illness) Category Sub-Category Detail Notes Category Not es At Risk footcare Pt States Last PCP Visit: Date: Examination Category Sub-Category Detail Notes Category Not es Dermatologic SKIN FINDINGS: Skin exam reveal s Keratotic lesion(s) located at, SUB MTH (s), 1, B/L , SUB MTH (s), 5, B/L ,Plantar, Heel(s), B/L Ophthalmology Referral DIABETES EYE EXAM Procedu re Performed:: Yes ?Date of Exam Performed: 04/28/2024 Diabetic [...]
[2024-08-30 12:41] LABS: MANUAL DIFF FLAG NO
[2024-08-30 12:59] LABS: Basophils Absolute Auto 0.1 X10*3/uL (0.0-0.2); Basophils Percent Auto 0.8 % (0-2); Eosinophils Absolute Auto 1.7 X10*3/uL (0.0-0.4); Eosinophils Percent Auto 15.4 % (0-4); Hematocrit 38.7 % (42.0-52.0); Hemoglobin 12.1 g/dl (14.0-18.0); Imm Gran Abs Auto 0.06 X10*3/uL (0.00-0.03); Imm Gran Pct Auto 0.5 % (0.0-0.4); Lymphocytes Percent Auto 27.4 % (20-40); Mean Corpuscular HGB Conc 31.3 g/dl (31.0-36.0); Mean Corpuscular Hemoglobin 26.5 pg (27.0-33.0); Mean Corpuscular Volume 84.7 fL (80.0-98.0); Mean Platelet Volume 11.6 fL (9.4-12.4); Monocytes Absolute Auto 0.7 X10*3/uL (0.1-1.2); Monocytes Percent Auto 6.6 % (2-11); Neutrophils Absolute Auto 5.5 x10*3/uL (2.0-8.3); Neutrophils Percent Auto 49.3 % (45-73); Platelet Count 209 X10*3/uL (160-400); Red Blood Count 4.57 X10*6/uL (4.60-5.80); Red Cell Distribution Width 14.7 % (11.0-16.0); White Blood Count 11.1 X10*3/uL (4.8-10.8)
[2024-08-30 13:23] LABS: Alanine Aminotransferase 9 U/L (0-40); Albumin Level 4.1 g/dL (3.5-5.0); Anion Gap 16 (12-20); Aspartate Amino Transferase 28 U/L (5-37); Bilirubin Total 0.2 mg/dL (0.0-1.0); Blood Urea Nitrogen 32 mg/dL (9-16); Calcium 9.5 mg/dL (8.4-10.2); Carbon Dioxide 21 mmol/L (22-29); Chloride 106 mmol/L (96-108); Cholesterol 145 mg/dL (<200); Estimated Glomerular Filt Rate 51; Glucose Random 127 mg/dL (60-115); HDL Cholesterol 39 mg/dL (>40); LDL Cholesterol Calculated 81 mg/dL (<100); Microalbum/Creatinine Ratio Ur 69.9 ug/mg cr (<30); Potassium 4.4 mmol/L (3.3-5.1); Sodium 139 mmol/L (135-145); Total Protein 7.2 g/dL (6.5-8.0); Triglycerides 125 mg/dL (<150)
[2024-08-30 14:00] LABS: Estimated Average Glucose 137 mg/dL; Hemoglobin A1C 146.9771 umol/L; Hemoglobin A1c % 6.4 % (<6.0); Total Hemoglobin (HGBA1C) 3189.3273 umol/L
[2024-08-30 15:16] LABS: Alkaline Phosphatase 81 U/L (39-117)
== END 2024-08-30 07:28 | disposition home or self-care (01) ==
LOC: HO.10HDL 07:27
PROVIDERS: Visit Provider Internal Medicine
DX: C61 Malignant neoplasm of prostate (principal); E11.40 Type 2 diabetes mellitus with diabetic neuropathy, unspecified; J44.9 Chronic obstructive pulmonary disease, unspecified; N18.9 Chronic kidney disease, unspecified
CPT/HCPCS: 36415; 80053; 80061; 82043; 82570; 83036; 85025

== ENCOUNTER 2024-10-18 07:59 | Outpatient (REF) | payer MEDICARE, SELFPAY ==
--- OUTSIDE RECORDS SUMMARY | 2024-10-18 08:01 | XMS_ITS | Clinical Summary ---
[facility] Address [address] [place] [address] Care Team Providers Care Header Up Name Role Phone Unavailable Primary Care Provider [...]
[2024-10-18 09:50] LABS: Prostate Specific Antigen < 0.10 ng/mL (<0.05-4.0)
== END 2024-10-18 08:00 | disposition home or self-care (01) ==
LOC: HO.LAB 07:59
PROVIDERS: PCP Internal Medicine; Visit Provider Urology
DX: R97.20 Elevated prostate specific antigen [PSA] (principal); C61 Malignant neoplasm of prostate; Z12.5 Encounter for screening for malignant neoplasm of prostate
CPT/HCPCS: 36415; 84153

== ENCOUNTER 2024-11-23 10:28 | Outpatient (REF) | payer MEDICARE, SELFPAY ==
--- OUTSIDE RECORDS SUMMARY | 2024-11-23 11:09 | XMS_ITS | Clinical Summary ---
[facility] Organization [facility] Address [address] [place] [address] Care Team Providers Care State Epidemiologist Name Role Phone Unavailable Primary Care Provider [...] - 1-dose 75+ series) 11/18/2014 COVID-19 Vaccine (1 - 2023-2 5 season) 2023 Depression Screening 04/21/2024 Influenza Vaccine (#1) 2024 HIB Vaccines Aged Out No longer [...]
--- OUTSIDE RECORDS SUMMARY | 2024-11-23 11:09 | XMS_ITS | Clinical Summary ---
Author Organization [facility] Address [address] [place] [address] Care Team Providers Care Campaign Assistant Name Role Phone Monica Darby MD Primary [...] DAILY 3 Active Lancets (OneTouch Delica Plus [id number]) misc USE TO CHECK SUGARS DAILY 3 [...] Visual Foot Exam 05/15/2022 Influenza Vaccine (#1) 2024 Hepatitis B Vaccine Aged Out No longe r eligible based on patient's age to complete this topic Insurance [facility] Care Teams Campaign Assistant Relationship Specialty Start Date End Date Monica Darby MD [address] [place] [address] PCP - General Internal Medicine 05/14/22
--- OUTSIDE RECORDS SUMMARY | 2024-11-23 11:10 | XMS_ITS | Patient Health Record ---
Author Organization [facility] Address [address] [place] [address] Care Team Providers Care Regulatory Consultant Name Role Phone Puneetgary Monica Primary Care Provider Julio Cesar Green [phone] Allergies No Known Allergies Results Component Value Reference Range Notes Ferritin Reviewed date:08/21/2024 10:07:00 PM Interpretation: Performing Lab:[facility], [address] [place] [phone] Notes/Report: Ferritin 86 20-250 ng/mL Calprotectin, Fecal Reviewed date:09/05/2024 12:15:05 AM Interpretation: Performing Lab:[facility], [address] [place] [phone] Notes/Report: Calprotectin, Fecal 192 Reference Range: <50 [...] borderline values. THIS TEST WAS PERFORMED AT: [employer] [address] [place] [address] JOEL JUAREZ MD,PHD,TERESO GI PANEL Reviewed date:08/25/2024 07:32:48 AM Interpretation: Performing Lab:[facility], [address] [place] [phone] Notes/Report: Campylobacter Not Detected Not Detect. Plesiomonas [...] is performed by Multiplexed PCR, utilizing the [employer] Array. Complete Blood Count Auto Di ff Reviewed date:08/21/2024 10:05:57 PM Interpretation: Performing Lab:[facility], [address] [place] [phone] Notes/Report: White Blood Count 7.9 4.8-10.8 X10*3/uL [...] te Reviewed date:08/21/2024 10:05:25 PM Interpretation: Performing Lab:[address] [address] Notes/Report: Erythrocyte Sedimentation Rate 34 0-15 MM/HR Patients with polycythemia and many hemoglobin abnormalities may have depressed sed rates whereas patients with anemia may have elevated sed rates. IRON PROFILE Reviewed date:08/21/2024 10:05:44 PM Interpretation: Performing Lab:[address] [address] Notes/Report: Iron 33 45-160 mcg/dL Total Iron Binding Capacity 228 228-428 mcg/dL Percent Iron Saturation 14 15-50 % Unsaturated Iron Binding 195 C Reactive Protein Reviewed date:08/21/2024 10:05:37 PM Interpretation: Performing Lab:[facility], [address] [place] [phone] Notes/Report: C Reactive Protein 0.24 < or = 0.50 mg/dL Celiac Disease Panel Reviewed date:08/23/2024 10:54:56 PM Interpretation: Performing Lab:[facility], [address] [place] [phone] Notes/Report: Immunoglobulin A 195 70-320 mg/dL THIS TEST WAS PERFORMED AT: [employer] [address] [place] [phone] JES MCLAUGHLIN MD Transglutaminase IgA <1.0 Value [...] PCR Reviewed date:08/23/2024 10:54:06 PM Interpretation: Performing Lab:[facility], [address] [place] [phone] Notes/Report: CDiff Gene PCR NEGATIVE Negative If C. difficile strongly suspected despite one negative test, a second test may be sent vs. empiric treatment for C. difficile infection. 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) Active confirmed Problem 75908653 Diarrhea, unspecified type (R19.7) Active confirmed Problem 118001407 Angiodysplasia o f stomach (K31.819) Active confirmed Vital Signs Blood pressure diastolic 77 mm Hg 08/19/2024 Height 69 in 08/19/2024 Blood pressure systolic 111 mm Hg 08/19/2024 Weight 159 lbs 08/19/2024 BMI 23.48 kg/m2 08/19/2024 Encounters Encounter Location Date Provider Diagnosis [facility] [address] [place] [address] 04/27/2024 Julio Cesar Chaparro Diarrhea, unspecifie d type R19.7 and Iron deficiency anemia due to chronic blood loss D50.0 [facility] [address] [place] [address] 08/19/2024 Julio Cesar Chaparro Diarrhea, unspecifie d type R19.7 and Iron deficiency anemia due to chronic blood loss D50.0 [facility] [address] [place] [address] 07/13/2024 Julio Cesar Chaparro [facility] [address] [place] [address] 08/18/2024 Julio Cesar Chaparro Assessments Encounter Date [...] any further assistance in the future. 08/19/2024 Diarrhea, unspecified type (ICD-10 - R19.7) [...] clinical appearance, and the negative colonoscopy in 2018, I am inclined to hold off on [...] (FE) 09/28/2018 IRON + IBC (FE) 08/19/2024 FERRITIN 09/28/2018 FERRITIN 08/25/2018 FERRITIN 05/20/2019 CRP 08/19/2024 CBC w DIFF 09/28/2018 CBC w DIFF 08/19/2024 CBC w DIFF 08/25/2018 CBC w DIFF 05/20/2019 SED RATE (ESR) 08/19/2024 C DIFFICILE RFLX PCR 08/19/2024 Celiac Panel 10 08/19/2024 Insurance Providers Payer Name Payer Address Payer Phone Subscriber Number Group Number Insured Name Patient Relationship to Insured Coverage Start Date Coverage End Date [employer] [address] [place] [address] [phone] [id number] LOPEZ CASEY Self - patient is the insured Medical (General) History Medical History History ICD Code Strokes--sees Dr. Ornelas NIDDM Hypertension Asthma COPD Denies HI,renal disease Iron deficiency anemia-he wa s hospitalized [...]
--- OUTSIDE RECORDS SUMMARY | 2024-11-23 11:10 | XMS_ITS | Patient Health Record ---
Author Organization [facility] Address [address] [facility] [place] [address] Care Team Providers Care Lay Out Worker Name Role Phone Monica Darby Primary Care Provider Unavailab Fabricio Granados Unavailable [phone] Allergies No Known Allergies Reason For Referral No Information Medications Medication SIG (Take, Route, Frequency, Duration) Notes Start Date End Date Status Clopidogrel Bisulfate 75 MG 1 tablet Orally Once a day; Duration: 30 day(s) Active Lisinopril 5 MG 1 tablet Orally Once a day; Duration: 30 day(s) Active Simvastatin 40 MG 1 tablet in the even ing Orally Once a day; Duration: 30 day(s) Active Mucinex DM 30-600 MG as directed Orally Active Breo Ellipta 100-25 MCG/INH as directed Inhalation Activ e glipiZIDE 5 MG 1 tablet 30 minutes before breakfast Orally Once a day; Duration: 30 day(s) Active Sertraline HCl 25 MG 1 tablet Orally Onc e a day; Duration: 30 day(s) Active Extra Depth Orthopedic Shoes, (1) Pair With (3) Pair Custom Heat Molded Multidensity Innersoles Dx: NIDDM/PVD(E11.51), Hammertoe Foot Deformity(M20.41,M20.42) , Preulcerative Skin Lesion(s)(L85.1) Wear Daily; Duration: 365 days 02/04/2023 Active Propranolol HCl 40 MG as directed Orally Active Ammonium Lactate 12 % 1 application Exte rnally Twice a day; Duration: 30 days Active immodium Active metFORMIN HCl 500 MG 1 tablet with a alfonso l Orally Once a day; Duration: 30 day(s) Not-Taking Famotidine 40 MG 1 tablet at bedtime Orally Once a day; Duration: 30 day(s) Active Immunizations Vaccine Route Administration [...] Problem Acquired hammer toe of right foot (82963400636830 05) Other hammer toe(s) (acquired), right foot (M20.41) Active confirmed Problem Acquired hammer toe of left foot (95449523320682 03) Other hammer toe(s) (acquired), left foot (M20.42) Active confirmed Problem Type 2 diabetes mellitus with peripheral angiopathy (400945760) 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.51) Active confirmed Vital Signs Blood pressure diastolic 75 mm Hg 08/24/2024 Height 5 ft 6 in in 08/24/2024 Blood pressure systolic 120 mm Hg 08/24/2024 Weight 160 lbs 08/24/2024 BMI 25.82 kg/m2 08/24/2024 Procedures Procedure Date Ordered Date Performed Result Body Sit e 05150-QFYZANE NAIL, 1-5 02/24/2024 N/A 66248-JCKV SKIN LESIONS, OVER 4 02/24/2024 N/A V4832-DWFKHGOX DYSTROPHIC NAILS ANY # 02/24/2024 N/A 85371-JKNRIGR NAIL, 1-5 05/25/2024 N/A 91739-VZXY SKIN LESIONS, OVER 4 05/25/2024 N/A U1291-PIXRJFHL DYSTROPHIC NAILS ANY # 05/25/2024 N/A 19125-WNBTVSA NAIL, 1-5 08/24/2024 N/A 53350-ORGG SKIN LESIONS, OVER 4 08/24/2024 N/A L4231-QRIBMHBP DYSTROPHIC NAILS ANY # 08/24/2024 N/A Encounters Encounter Location Date Provider Diagnosis [facility] [address] [place] [address] 02/24/2024 Fabricio Juan Type 2 diabetes mellitus with diabetic peripheral angiopathy without gangrene E11.51 ; Tinea unguium B35.1 ; Pain in right toe(s) M79.674 ; Pain in left toe(s) M79.675 and Xerosis of skin L85.[address] [facility] [address] 05/25/2024 Fabricio Juan Type 2 diabetes mellitus with diabetic peripheral angiopathy without gangrene E11.51 ; Tinea unguium B35.1 ; Pain in right toe(s) M79.674 ; Pain in left toe(s) M79.675 ; Other hammer toe(s) (acquired), right foot M20.41 and Other hammer toe(s) (acquired), left foot M20.[address] [address] 08/24/2024 Fabricio Juan Tinea unguium B35.1 ; [...] toe(s) (acquired), left foot (ICD-10 - M20.42) 02/24/2024 Other Plan Of Treatment Pending Test Test Name Order Date X ray : Foot, left 3V 02/06/2022 66711-AAPPPBR NAIL, 1-5 05/07/2022 14303-YEWTQVB NAIL, 1-5 01/21/2022 99062-NIHXXOO NAIL, -5 08/13/2022 95984-GWCLEUA NAIL, -5 11/12/2022 98421-KYBYJCT NAIL, -5 02/04/2023 88590-FCFHXMN NAIL, -5 06/13/2023 12055-XLCAUDI NAIL, -5 11/21/2023 79184-PNBCTLQ NAIL, 1-5 02/24/2024 88851-CPIGHBP NAIL, 1-5 05/25/2024 69426-AUVNHOL NAIL, 1-5 08/24/2024 47062-Tnho Destruction, -14 02/04/2023 69405-Mmvo Destruction, -14 11/12/2022 36811-Epej Destruction, -14 08/13/2022 85853-Lknx Destruction, -14 01/21/2022 03568-Giux Destruction, -14 05/07/2022 10262-LGVC SKIN LESIONS, OVER 4 05/07/19 23 15839-YIRP SKIN LESIONS, OVER 4 01/22/20 22 34805-RMLV SKIN LESIONS, OVER 4 08/14/19 23 08598-SUVF SKIN LESIONS, OVER 4 11/13/19 23 08797-YDVR SKIN LESIONS, OVER 4 02/05/20 23 87993-HTCI SKIN LESIONS, OVER 4 11/21/19 24 30964-CZBH SKIN LESIONS, OVER 4 06/13/19 24 11966-WWCC SKIN LESIONS, OVER 4 08/25/19 33218-MFZJ SKIN LESIONS, OVER 4 05/25/19 66406-RODK SKIN LESIONS, OVER 4 02/24/20 24 I1789-JDFOQPGY DYSTROPHIC NAILS ANY # B0827-EOQCCFEA DYSTROPHIC NAILS ANY # A0534-QEEHQEWZ DYSTROPHIC NAILS ANY # G9767-MAIKPOAU DYSTROPHIC NAILS ANY # C6892-UAJSRKIN DYSTROPHIC NAILS ANY # M0702-VJSVYWTA DYSTROPHIC NAILS ANY # P4503-WMIKDWTC DYSTROPHIC NAILS ANY # D7748-ULAVOFLP DYSTROPHIC NAILS ANY # X4732-XAICIHLS DYSTROPHIC NAILS ANY # A3164-QIMRHRNY DYSTROPHIC NAILS ANY # Next Appt Details Provider Name:Fabricio Juan , 11/26/2024 10:30:00 AM, [address] [facility], [place], [address], Insurance Providers Payer Name Payer Address Payer Phone Subscriber Number Group Number Insured Name Patient Relationship to Insured Coverage Start Date Coverage End Date [employer] Preferred [address] [place] [address] [phone] [id number] Jhonny Shrestha Self - patient is the insured Medical (General) History Medical History History ICD Code asthma Diabetic type ll Lung disease Parkinsons disease Stroke Chicken pox COPD Colon CA Hypercholesterolemia Hypertension Surgical History Surgery Date(Month/Year) appendectomy gall bladder cataract surgery Hospitalization History Reason Date(Month/Year) Ultrasound both legs for veins 2021
[2024-11-23 13:52] LABS: Hemoglobin A1C 165.8085 umol/L; Total Hemoglobin (HGBA1C) 3253.7852 umol/L
[2024-11-23 13:54] LABS: Alanine Aminotransferase 16 U/L (0-40); Albumin Level 4.1 g/dL (3.5-5.0); Alkaline Phosphatase 83 U/L (39-117); Anion Gap 15 (12-20); Aspartate Amino Transferase 20 U/L (5-37); Blood Urea Nitrogen 43 mg/dL (9-16); Calcium 9.1 mg/dL (8.4-10.2); Carbon Dioxide 25 mmol/L (22-29); Chloride 106 mmol/L (96-108); Estimated Glomerular Filt Rate 42; Potassium 4.3 mmol/L (3.3-5.1); Sodium 142 mmol/L (135-145); Total Protein 6.9 g/dL (6.5-8.0)
== END 2024-11-23 10:29 | disposition home or self-care (01) ==
LOC: HO.10HDL 10:28
PROVIDERS: Referring Provider Internal Medicine; Visit Provider Internal Medicine Hypertension Specialist
DX: E11.9 Type 2 diabetes mellitus without complications (principal); E78.00 Pure hypercholesterolemia, unspecified; R80.8 Other proteinuria; N18.32 Chronic kidney disease, stage 3b
CPT/HCPCS: 36415; 80053; 83036

== ENCOUNTER 2024-11-30 09:12 | Outpatient (AMB) | payer MEDICARE, SELFPAY ==
[2024-11-30 09:20] VITALS: BP 78/44; PULSE 95; O2SAT 94; BMI 23.3
--- NOTE | 2024-11-30 09:20 | HO.NEPHOV ---
Vital Signs 11/30/24 09:20 Height 5 ft 9 in Weight 158 lb BMI 23.3 BP 78/44 L Blood Pressure Location Rt brachial Position Sitting Pulse 95 Pulse Source Pulse Oximeter Pulse Oximetry (%) 94 Oxygen Delivery Method Room Air Intake Visit Reasons: 4 MO FU/ Conf Cutting Inspector Required: No Accompanied by: Self / Same As Patient Allergies No Known Allergies (No Known Allergies*) Allergy (Verified 11/30/24 09:22) Medication List - Last Reconciled 11/30/24 by Clive Boykin MD albuterol sulfate 90 mcg/actuation (ProAir HFA) 2 puffs inhalation Q4-6H PRN 60 days amoxicillin-pot clavulanate 500-125 mg (Augmentin) 1 tab PO TID 10 days aspirin 81 mg PO DAILY Breo Ellipta 100-25 mcg/dose (fluticasone furoate-vilanterol) 1 inh inhalation DAILY 90 days NS calcium carbonate (Calcium 600) 600 mg PO DAILY cetirizine 10 mg PO DAILY cholecalciferol (vitamin D3) 50 mcg PO DAILY dorzolamide 2% 1 drp ophthalmic (eye) Q12H famotidine 40 mg PO DAILY PRN finasteride 5 mg PO DAILY 90 days fluticasone propionate 50 mcg/actuation (Flonase Allergy Relief) 1 spray intranasal BID PRN glipizide ER 5 mg PO DAILY guaifenesin ER (Mucinex) 600 mg PO DAILY lisinopril-hydrochlorothiazide 10-12.5 mg 1 tab PO DAILY loperamide 2 mg PO DAILY PRN pantoprazole 40 mg PO DAILY simvastatin 40 mg PO DAILY tramadol 50 mg PO BID PRN HPI Comments Details: 83-year-old man with a history of longstanding hypertension and diabetes mellitus with CKD 3. He has a history of hyperkalemia back in April 2022. This was treated medically. He was using salt substitute while he was on lisinopril. Lisinopril was placed on hold and restarted again. Over the last few months serum potassium has been in the normal range. Baseline serum creatinine is around 1.5 mg/dL. He has a history of prostate cancer and is being followed by Dr. Beatty. He has a history of for shortness of breath on exertion. Seen by Dr. Ornelas. Echocardiogram was unremarkable. s/p stress test Also has history of COPD. Being followed by Dr. Luz He was scheduled for his sleep evaluation but never underwent. 11/09: Accompanied by son - Art;Had eye surgery 03/08/24;Overall doing well. No urinary sypmtoms. 08/03/24 _ No new issues 11/30/24 c/o diarrhea x 3 days No abdominal pain PFSH Medical History Cough Hypersomnia Stroke COPD exacerbation COPD (chronic obstructive pulmonary disease) Allergic rhinitis Surgical History Hx of cataract surgery (~09/2023) S/P tonsillectomy and adenoidectomy Hx of cholecystectomy History of appendectomy Family History Mother No problems noted. Father Heart disease Social History Alcohol intake: former Patient Tobacco Use Status: Former Tobacco user Years Smoked: 40 +/- Physical Exam Vital Signs: Last Vital Signs Pulse 95 11/30/24 09:20 BP 78/44 L 11/30/24 09:20 Pulse Ox 94 11/30/24 09:20 Oxygen Delivery Method Room Air 11/30/24 09:20 BMI result Body Mass Index 23.3 Neck Neck: Yes supple Resp Auscultation: clear to auscultation bilaterally Cardio Palpation: no palpable S3 Heart sounds: no rubs GI Palpation (GI): Soft to palpation Auscultation: normal bowel sounds Neuro Motor exam (neuro): no asterixis Results Reviewed Nephrology Results: Hgb, (14.0-18.0) 12.1 g/dl L 08/30/24 WBC, (4.8-10.8) 11.1 X10*3/uL H 08/30/24 Plt Count, (160-400) 209 X10*3/uL Δ 08/30/24 Sodium, (135-145) 142 mmol/L 11/23/24 Potassium, (3.3-5.1) 4.3 mmol/L 11/23/24 Chloride, (96-108) 106 mmol/L 11/23/24 Carbon Dioxide, (22-29) 25 mmol/L 11/23/24 BUN, (9-16) 43 mg/dL H 11/23/24 Creatinine, (0.5-1.4) 1.57 mg/dL H 11/23/24 Calcium, (8.4-10.2) 9.1 mg/dL 11/23/24 Urine Creatinine 75.80 mg/dL 08/30/24 Renal US 09/04/22 Assessment & Plan Assessment & Plan (1) CKD (chronic kidney disease) stage 3, GFR 30-59 ml/min: Code(s): N18.30 - Chronic kidney disease, stage 3 unspecified Category: Medical Qualifiers: Chronic kidney disease stage 3 subtype: stage 3b (GFR 30-44) Qualified Code(s): N18.32 - Chronic kidney disease, stage 3b Plan: CKD in the setting of longstanding hypertension and diabetes mellitus. Renal function is close to baseline. He has stage IIIB CKD. Goal is to slow the progression of renal disease. Continue to avoid nephrotoxic agents including NSAIDs. Encouraged to stay on low-sodium diet. He will benefit from a SGLT 2 inhibitor REnal function is stable (2) Hyperkalemia: Code(s): E87.5 - Hyperkalemia Category: Medical Plan: In a setting of CKD. stay on low-potassium diet. Avoid salt substitutes. Closely monitor serum potassium periodically. K is in the normal range at present Plan Diarrhea Increase PO fluid intake Contact PCP if no improvement Hypotension due to volume depletion due to diarrhea HOLD Lisinopril HCT until diarrhea resolves Advised to go to ER if diarrhea persists or if he is lightheaded or weak. . Orders: Orders Basic Metabolic Panel 3 Months N18.32 - Chronic kidney disease, stage 3b Complete Blood Count no Diff 3 Months N18.32 - Chronic kidney disease, stage 3b Coding Level of Care Code Est Pt Level 4 (44599) Diagnoses Stage 3b chronic kidney disease N18.32 Chronic kidney disease stage 3 subtype: stage 3b (GFR 30-44) Hyperkalemia E87.5
--- OUTSIDE RECORDS SUMMARY | 2024-11-30 09:47 | XMS_ITS | Clinical Summary ---
[facility] Address [address] [place] [address] Care Team Providers Care Billing Supervisor Name Role Phone Unavailable Primary Care Provider [...]
--- OUTSIDE RECORDS SUMMARY | 2024-11-30 09:47 | XMS_ITS | Clinical Summary ---
Author Organization [facility] Facility Address [address] [place] [address] Care Team Providers Care Claims Technician Name Role Phone Monica Darby MD Primary [...] DAILY 3 Active Lancets (OneTouch Delica Plus [id number]) misc USE TO CHECK SUGARS DAILY 3 [...] patient's age to complete this topic [facility] Care Teams Claims Technician Relationship Specialty Start Date End Date Monica Darby MD [address] [place] [address] PCP - General Internal Medicine 05/14/22
--- OUTSIDE RECORDS SUMMARY | 2024-11-30 09:47 | XMS_ITS | Patient Health Record ---
Author Organization [facility] Address [address] [place] [address] Care Team Providers Care Boat Finisher Name Role Phone Puneetgary Monica Primary Care Provider Julio Cesar Green [phone] Allergies No Known Allergies Results Component Value Reference Range Notes Ferritin Reviewed date:08/21/2024 10:07:00 PM Interpretation: Performing Lab:[facility], [address] [place] [phone] Notes/Report: Ferritin 86 20-250 ng/mL Calprotectin, Fecal Reviewed date:09/05/2024 12:15:05 AM Interpretation: Performing Lab:[facility], [address] [place] [phone] Notes/Report: Calprotectin, Fecal 192 Reference Range: <50 [...] borderline values. THIS TEST WAS PERFORMED AT: [employer] [address] [place] [address] JOEL JUAREZ MD,PHD,TERESO GI PANEL Reviewed date:08/25/2024 07:32:48 AM Interpretation: Performing Lab:[facility], [address] [place] [phone] Notes/Report: Campylobacter Not Detected Not Detect. Plesiomonas [...] is performed by Multiplexed PCR, utilizing the proteonomix Array. Complete Blood Count Auto Di ff Reviewed date:08/21/2024 10:05:57 PM Interpretation: Performing Lab:[facility], [address] [place] [phone] Notes/Report: White Blood Count 7.9 4.8-10.8 X10*3/uL [...] te Reviewed date:08/21/2024 10:05:25 PM Interpretation: Performing Lab:[address] [address] Notes/Report: Erythrocyte Sedimentation Rate 34 0-15 MM/HR Patients with polycythemia and many hemoglobin abnormalities may have depressed sed rates whereas patients with anemia may have elevated sed rates. IRON PROFILE Reviewed date:08/21/2024 10:05:44 PM Interpretation: Performing Lab:[address] [address] Notes/Report: Iron 33 45-160 mcg/dL Total Iron Binding Capacity 228 228-428 mcg/dL Percent Iron Saturation 14 15-50 % Unsaturated Iron Binding 195 C Reactive Protein Reviewed date:08/21/2024 10:05:37 PM Interpretation: Performing Lab:[facility], [address] [place] [phone] Notes/Report: C Reactive Protein 0.24 < or = 0.50 mg/dL Celiac Disease Panel Reviewed date:08/23/2024 10:54:56 PM Interpretation: Performing Lab:[facility], [address] [place] [phone] Notes/Report: Immunoglobulin A 195 70-320 mg/dL THIS TEST WAS PERFORMED AT: [employer] [address] [place] [phone] JES MCLAUGHLIN MD Transglutaminase IgA <1.0 Value [...] PCR Reviewed date:08/23/2024 10:54:06 PM Interpretation: Performing Lab:[facility], [address] [place] [phone] Notes/Report: CDiff Gene PCR NEGATIVE Negative If C. difficile strongly suspected despite one negative test, a second test may be sent vs. empiric treatment for C. difficile infection. 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) Active confirmed Problem 29216303 Diarrhea, unspecified type (R19.7) Active confirmed Problem 530960940 Angiodysplasia o f stomach (K31.819) Active confirmed Vital Signs Blood pressure diastolic 77 mm Hg 08/19/2024 Height 69 in 08/19/2024 Blood pressure systolic 111 mm Hg 08/19/2024 Weight 159 lbs 08/19/2024 BMI 23.48 kg/m2 08/19/2024 Encounters Encounter Location Date Provider Diagnosis [facility] [address] [place] [phone] 04/27/2024 Julio Cesar Chaparro Diarrhea, unspecifie d type R19.7 and Iron deficiency anemia due to chronic blood loss D50.0 [facility] [address] [place] [phone] 08/19/2024 Julio Cesar Chaparro Diarrhea, unspecifie d type R19.7 and Iron deficiency anemia due to chronic blood loss D50.0 [facility] [address] [place] [address] 07/13/2024 Julio Cesar Chaparro [facility] [address] [place] [address] 08/18/2024 Julio Cesar Chaparro Assessments Encounter Date [...] Date [employer] PREFERRED [address] [place] [address] [phone] [id number] LOPEZ CASEY Self - patient is the insured Medical (General) History Medical History History ICD Code Strokes--sees Dr. Ornelas NIDDM Hypertension Asthma COPD Denies [place],renal disease Iron deficiency anemia-he wa s hospitalized [...]
--- OUTSIDE RECORDS SUMMARY | 2024-11-30 09:47 | XMS_ITS | Patient Health Record ---
Author Organization [facility] [place] Address [address] [place] [address] Care Team Providers Care Engineering Administrator Name Role Phone Monica Darby Primary Care Provider Unavailab Fabricio Granados Unavailable [phone] Allergies No Known Allergies Results Component Value Reference Range Notes HEMOGLOBIN A1C (GLYCOHEMOGLO BIN) Reviewed date:11/26/2024 10:37:44 AM Interpretation: Performing Lab: Notes/Report: HEMOGLOBIN A1C % (HH) 6.6 Reason For Referral Diagnosis 1 Type 2 diabetes gerardo itus with diabetic peripheral angiopathy without gangrene (E11.51) Diagnosis 2 Other hammer toe(s) (acquired), right foot (M20.41) Diagnosis 3 Other hammer toe(s) (acquired), left foot (M20.42) Diagnosis 4 Pain in left toe(s) (M79.675) Diagnosis 5 Pain in right toe(s) (M79.674) Diagnosis 6 Tinea unguium (B35.1 ) Diagnosis 7 Xerosis cutis (L85.3 ) Referring Provider First Name Monica Referring Provider Last Name Wilner [facility] Referred Provider Fabricio Juan Referred Address [address] [place],[address], Referred Provider Specialty Podiatry Referral Priority Routine Medications Medication SIG (Take, Route, Frequency, Duration) Notes Start Date End Date Status Propranolol HCl 40 MG as directed Orally Active Ammonium Lactate 12 % 1 application Exte rnally Twice a day; Duration: 30 days Active Extra Depth Orthopedic Shoes, (1) Pair With (3) Pair Custom Heat Molded Multidensity Innersoles Dx: NIDDM/PVD(E11.51), Hammertoe Foot Deformity(M20.41,M20.42) , Preulcerative Skin Lesion(s)(L85.1) Wear Daily; Duration: 365 days 02/04/2023 Active Simvastatin 40 MG 1 tablet in the even ing Orally Once a day; Duration: 30 day(s) Active Lisinopril 5 MG 1 tablet Orally Once a day; Duration: 30 day(s) Active Breo Ellipta 100-25 MCG/INH as directed Inhalation Activ e Mucinex DM 30-600 MG as directed Orally Active Famotidine 40 MG 1 tablet at bedtime Orally Once a day; Duration: 30 day(s) Active immodium Active metFORMIN HCl 500 MG 1 tablet with a alfonso l Orally Once a day; Duration: 30 day(s) Not-Taking Clopidogrel Bisulfate 75 MG 1 tablet Orally Once a day; Duration: 30 day(s) Active Sertraline HCl 25 MG 1 tablet Orally Onc e a day; Duration: 30 day(s) Active glipiZIDE 5 MG 1 tablet 30 minutes before breakfast Orally Once a day; Duration: 30 day(s) Active Immunizations Vaccine Route Administration Date Status Comme nts Influenza Unknown 12/20/2022 Administered Influenza Unknown 01/20/2024 Administered Social History Tobacco Use: Social History [...] Problem Acquired hammer toe of right foot (580767028907 9105) Other hammer toe(s) (acquired), right foot (M20.41) Active confirmed Problem Acquired hammer toe of left foot (548663245529 9103) Other hammer toe(s) (acquired), left foot (M20.42) Active confirmed Problem 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.51) Active confirmed Vital Signs Blood pressure diastolic 65 mm Hg 11/26/2024 Height 5 ft 6 in in 11/26/2024 Blood pressure systolic 128 mm Hg 11/26/2024 Weight 160 lbs 11/26/2024 BMI 25.82 kg/m2 11/26/2024 Procedures Procedure Date Ordered Date Performed Result Body Sit e 62814-XTPAYAJ NAIL, 1-5 02/24/2024 N/A 62090-HURV SKIN LESIONS, OVER 4 02/24/2024 N/A H7668-NSNMYBYW DYSTROPHIC NAILS ANY # 02/24/2024 N/A 80204-MNBBIXZ NAIL, 1-5 05/25/2024 N/A 42921-QAYW SKIN LESIONS, OVER 4 05/25/2024 N/A V8472-CCTKHUFS DYSTROPHIC NAILS ANY # 05/25/2024 N/A 00999-FFRZEEK NAIL, 1-5 08/24/2024 N/A 48522-AWPQ SKIN LESIONS, OVER 4 08/24/2024 N/A J5349-WMSKYGEA DYSTROPHIC NAILS ANY # 08/24/2024 N/A 70886-YISOHTF NAIL, 1-5 11/26/2024 N/A 92840-TQZU SKIN LESIONS, OVER 4 11/26/2024 N/A G3688-ZTPMIXKC DYSTROPHIC NAILS ANY # 11/26/2024 N/A Encounters Encounter Location Date Provider Diagnosis [facility] [address] [address] 02/24/2024 Fabricio Juan Type 2 diabetes mellitus with diabetic peripheral angiopathy without gangrene E11.51 ; Tinea unguium B35.1 ; Pain in right toe(s) M79.674 ; Pain in left toe(s) M79.675 and Xerosis of skin L85.[address] [facility] [address] 05/25/2024 Fabriciomariposa ParrYessica Type 2 diabetes mellitus with diabetic peripheral angiopathy without gangrene E11.51 ; Tinea unguium B35.1 ; Pain in right toe(s) M79.674 ; Pain in left toe(s) M79.675 ; Other hammer toe(s) (acquired), right foot M20.41 and Other hammer toe(s) (acquired), left foot M20.[address] [address] 08/24/2024 Fabricio Juan Tinea unguium B35.1 ; Type 2 diabetes mellitus with diabetic peripheral angiopathy without gangrene E11.51 ; Pain in right toe(s) M79.674 and Pain in left toe(s) M79.[address] [facility] [address] 11/26/2024 Fabricio Juan Tinea unguium B35.1 ; Type [...] peripheral angiopathy without gangrene (ICD-10 - E11.51) 11/26/2024 Tinea unguium (ICD-10 - B35.1) 11/26/2024 Type 2 diabetes mellitus with diabetic peripheral angiopathy without gangrene (ICD-10 - E11.51) 08/24/2024 Pain in right toe(s) (ICD-10 - M79.674) 11/26/2024 Pain in right toe(s) (ICD-10 - M79.674) 02/24/2024 Pain in right toe(s) (ICD-10 - M79.674) 05/25/2024 Pain in right toe(s) (ICD-10 - M79.674) 08/24/2024 Pain in left toe(s) (ICD-10 - M79.675) 05/25/2024 Pain in left toe(s) (ICD-10 - M79.675) 02/24/2024 Pain in left toe(s) (ICD-10 - M79.675) 11/26/2024 Pain in left toe(s) (ICD-10 - M79.675) [...] X ray : Foot, left 3V 02/06/2022 11540-UCNAJZU NAIL, 1-5 05/07/2022 66255-FHNCWAZ NAIL, -5 01/21/2022 38519-OYZLJDW NAIL, -5 08/13/2022 38857-GNAVICF NAIL, -11/12/2022 21651-IDRIDBZ NAIL, -02/04/2023 12730-SFKQBAG NAIL, -5 06/13/2023 35252-MEYXFHO NAIL, -5 11/21/2023 76961-GBONFUZ NAIL, -5 02/24/2024 19075-KDTHTEY NAIL, -5 05/25/2024 94268-EDHROQL NAIL, -5 08/24/2024 36532-ZLEXYHT NAIL, -5 11/26/2024 05786-Nopp Destruction, -02/04/2023 61881-Xtxm Destruction, -11/12/2022 10314-Lloi Destruction, -08/13/2022 75980-Azrn Destruction, -14 01/21/2022 47674-Bfdm Destruction, 1-14 05/07/2022 54267-ETRG SKIN LESIONS, OVER 4 01/17/20 23 36849-QBLK SKIN LESIONS, OVER 4 01/22/20 70646-UVCI SKIN LESIONS, OVER 4 08/14/19 73569-PWKJ SKIN LESIONS, OVER 4 11/13/19 23 29652-LKCO SKIN LESIONS, OVER 4 02/05/20 23 72543-MYGG SKIN LESIONS, OVER 4 11/21/19 11596-PGDL SKIN LESIONS, OVER 4 06/13/19 24 50974-AJYM SKIN LESIONS, OVER 4 11/27/19 78104-AMUT SKIN LESIONS, OVER 4 08/25/19 23696-TNPK SKIN LESIONS, OVER 4 05/25/19 44862-QWIX SKIN LESIONS, OVER 4 02/24/20 O6082-EKHJVSNG DYSTROPHIC NAILS ANY # Y3019-HMAXSOGN DYSTROPHIC NAILS ANY # Y0578-REQINLMU DYSTROPHIC NAILS ANY # V6386-ZVOVTKSA DYSTROPHIC NAILS ANY # U0359-WIEYQMOQ DYSTROPHIC NAILS ANY # Q1228-EIJSBTMK DYSTROPHIC NAILS ANY # M9033-XEWJMWFC DYSTROPHIC NAILS ANY # G5174-NBHLIEPN DYSTROPHIC NAILS ANY # J2242-ALQMCJBQ DYSTROPHIC NAILS ANY # N8952-VPCLJLHB DYSTROPHIC NAILS ANY # J2176-GQQBXSYJ DYSTROPHIC NAILS ANY # Next Appt Details Provider Name:Fabricio Juan , 03/15/2025 11:30:00 AM, [address] [place], [address], Insurance Providers Payer Name Payer Address Payer Phone Subscriber Number Group Number Insured Name Patient Relationship to Insured Coverage Start Date Coverage End Date [employer] Preferred [address] [place] [address] [id number] Jhonny Shrestha Self - patient is the insured Medical (General) History Medical History History ICD Code asthma Diabetic type ll Lung disease Parkinsons disease Stroke Chicken pox COPD Colon CA Hypercholesterolemia Hypertension Surgical History Surgery Date(Month/Year) appendectomy gall bladder cataract surgery Hospitalization History Reason Date(Month/Year) Ultrasound both legs for veins 2021
== END 2024-11-30 09:38 | disposition home or self-care (01) ==
LOC: HO.HKA 09:13
PROVIDERS: PCP Internal Medicine; Visit Provider Internal Medicine Hypertension Specialist
DX: N18.32 Chronic kidney disease, stage 3b (principal); E87.5 Hyperkalemia
CPT/HCPCS: 99214

== ENCOUNTER → 2024-11-30 09:12 | Outpatient (BNVA) | payer MEDICARE, SELFPAY | PROVIDERS: PCP Internal Medicine; Visit Provider Internal Medicine Hypertension Specialist | DX: I10 Essential (primary) hypertension (principal); N18.32 Chronic kidney disease, stage 3b; E87.5 Hyperkalemia; E11.22 Type 2 diabetes mellitus with diabetic chronic kidney disease | CPT/HCPCS: 99212 ==

== ENCOUNTER 2024-12-04 11:42 | Inpatient (IN) | payer MEDICARE, SELFPAY ==
[2024-12-04] VITALS (12 sets, daily range): BP systolic 103–151; BP diastolic 47–66; PULSE 53–87; RESP 14–20; TEMP 36–36.8; O2SAT 94–98; BMI 35.2
--- NOTE | ~2024-12-04 | XR_ITS ---
CLINICAL HISTORY: lactic acidosis 1 view chest x-ray Comparison: None provided Findings: No consolidation or effusion. Heart size is normal. No acute fracture. IMPRESSION: 1. No acute findings. This document has been electronically signed by: Samantha Bocanegra MD on 12/04/2024 17:39:25
--- NOTE | ~2024-12-04 | CT_ITS ---
CLINICAL HISTORY: Abd pain maria del rosario CT abdomen and pelvis without contrast Comparison: None provided Findings: No consolidation or effusion. Moderate-sized hiatal hernia. Unremarkable gallbladder and solid organs. No urolithiasis. No bowel obstruction, pneumoperitoneum, or pneumatosis. Moderate diverticulosis of the sigmoid colon without evidence of diverticulitis. Moderate circumferential wall thickening mild surrounding inflammatory changes of the hepatic flexure of the ascending colon. Pelvic contents unremarkable. Normal appendix.The bones are intact. IMPRESSION: Moderate circumferential wall thickening mild surrounding inflammatory changes of the hepatic flexure of the ascending colon. Findings may represent colitis /diverticulitis. Moderate-sized hiatal hernia. Moderate sigmoid diverticulosis This document has been electronically signed by: Samantha Bocanegra MD on 12/04/2024 20:16:59
--- NOTE | 2024-12-04 11:45 | ED.GENADULT ---
HPI - General Adult General Chief complaint: General Medical Stated complaint: low bp Time Seen by Provider: 12/04/24 11:50 Related Data Home Medications ?Medication ?Instructions ?Recorded ?Confirmed simvastatin 40 mg tablet 40 mg PO DAILY 03/13/20 11/30/24 cetirizine 10 mg tablet 10 mg PO DAILY 07/11/20 11/30/24 famotidine 40 mg tablet 40 mg PO DAILY PRN 10/08/22 11/30/24 glipizide 5 mg tablet, extended 5 mg PO DAILY 10/08/22 11/30/24 release 24 hr lisinopril 10 1 tab PO DAILY 10/08/22 11/30/24 mg-hydrochlorothiazide 12.5 mg tablet pantoprazole 40 mg tablet,delayed 40 mg PO DAILY 05/06/23 11/30/24 release fluticasone propionate 50 1 spray intranasal BID PRN 09/25/23 11/30/24 mcg/actuation nasal spray,suspension (Flonase Allergy Relief) dorzolamide 2 % eye drops 1 drp ophthalmic (eye) Q12H 11/10/23 11/30/24 loperamide 2 mg capsule 2 mg PO DAILY PRN 03/08/24 11/30/24 calcium carbonate (Calcium 600) 600 mg PO DAILY 05/11/24 11/30/24 cholecalciferol (vitamin D3) 50 50 mcg PO DAILY 05/11/24 11/30/24 mcg (2,000 unit) capsule guaifenesin 600 mg tablet, 600 mg PO DAILY 07/28/24 11/30/24 extended release 12 hr (Mucinex) aspirin 81 mg tablet,delayed 81 mg PO DAILY 11/30/24 11/30/24 release Previous Rx's ?Medication ?Instructions ?Recorded albuterol sulfate 90 mcg/actuation 2 puff inhalation Q4-6H PRN 11/12/21 aerosol inhaler (ProAir HFA) shortness of breath or wheezing 60 days #8.5 grams Breo Ellipta 100 mcg-25 mcg/dose 1 inh inhalation DAILY COPD 90 06/18/24 powder for inhalation (fluticasone days #3 ea furoate-vilanterol) amoxicillin 500 mg-potassium 1 tab PO TID 10 days #30 tabs 08/06/24 clavulanate 125 mg tablet (Augmentin) tramadol 50 mg tablet 50 mg PO BID PRN pain #8 tabs 08/06/24 finasteride 5 mg tablet 5 mg PO DAILY 90 days #90 tabs 11/01/24 Allergies Allergy/AdvReac Type Severity Reaction Status Date / Time No Known Allergies (No Known Allergy Verified 12/04/24 11:43 Allergies*) [facility] Past Medical History Medical History Cough Hypersomnia Stroke COPD exacerbation COPD (chronic obstructive pulmonary disease) Allergic rhinitis Surgical History Hx of cataract surgery (~09/2023) S/P tonsillectomy and adenoidectomy Hx of cholecystectomy History of appendectomy Family History Family History Mother No problems noted. Father Heart disease Social History Social History Alcohol intake: former Patient Tobacco Use Status: Former Tobacco user Years Smoked: 40 +/- Smoked in Last 30 Days: No Use of substances other than those prescribed or required for medical reasons: No Advance Directives: No Advance Directives Information Provided: Yes Physical Exam ED Vital Signs: Vital Signs - 24 hr 12/04/24 11:43 12/04/24 12:01 12/04/24 12:44 Temperature 96.8 F 97.8 F Pulse Rate 87 83 70 Respiratory Rate 16 19 17 Blood Pressure 145/66 H 121/60 124/58 L Pulse Oximetry 97 94 96 Oxygen Delivery Method Room Air Room Air Room Air 12/04/24 12:46 12/04/24 12:48 12/04/24 12:49 Temperature Pulse Rate 67 82 79 Respiratory Rate Blood Pressure 128/56 L 141/54 H 103/51 L Pulse Oximetry Oxygen Delivery Method 12/04/24 14:00 Temperature Pulse Rate 64 Respiratory Rate 16 Blood Pressure 136/61 Pulse Oximetry 98 Oxygen Delivery Method Room Air BMI result Body Mass Index 35.2 Course Course Course Narrative: Megan Pedroza SHOWER ATTENDANT 12/04 8565 This is a rapid medical exam. Deferred additional HPI, ROS, PE to primary provider. 84 yo male with PMH of CKD, HTN, HLD, DM here with complaints of weakness since Friday. Had low bp at nephrology office on Friday and feels like his blood pressure has been low since. Of note, patient continues to take his antihypertensives. Kris obtain labs, EKG, UA VSS Medications Administered Generic Name Dose Route Start Last Admin Trade Name Freq PRN Reason Stop Dose Admin Sodium Chloride 3,061.74 mls @ 3,061.74 mls/hr 12/04/24 14:08 12/04/24 14:23 Ns 30 ml/kg infuse over 1 hr (3061.74 ml) 12/04/24 15:07 3,061.74 mls/hr IV Administration .Q1H STA Discontinued Medications Generic Name Dose Route Start Last Admin Trade Name Freq PRN Reason Stop Dose Admin Ceftriaxone Sodium 1 gm 12/04/24 14:08 12/04/24 14:23 Ceftriaxone Sodium 1 Gm Vial IVPUSH 12/04/24 14:09 1 gm ONCE ONE Administration Sodium Chloride 1,000 mls @ 999 mls/hr 12/04/24 13:00 12/04/24 14:24 Ns IV 12/04/24 14:00 Infused .Q1H1M CELY Infusion Medical Decision Making Lab Data 12/04/24 12:23 12/04/24 12:23 Labs: Lab Results 12/04/24 12/04/24 12/04/24 Range/Units 12:23 12:44 13:21 WBC 10.2 (4.8-10.8) X10*3/uL RBC 4.55 L (4.60-5.80) X10*6/uL Hgb 12.1 L (14.0-18.0) g/dl Hct 36.5 L (42.0-52.0) % MCV 80.2 (80.0-98.0) fL MCH 26.6 L (27.0-33.0) pg MCHC 33.2 (31.0-36.0) g/dl RDW 14.6 (11.0-16.0) % Plt Count TNP MPV TNP Immature Gran % (Auto) 0.8 H (0.0-0.4) % Neut % (Auto) 68.6 (45-73) % Lymph % (Auto) 19.0 L (20-40) % [place] % (Auto) 5.4 (2-11) % Eos % (Auto) 5.8 H (0-4) % Baso % (Auto) 0.4 (0-2) % Lymph # (Auto) 1.9 (1.2-4.9) X10*3/uL [place] # (Auto) 0.6 (0.1-1.2) X10*3/uL Eos # (Auto) 0.6 H (0.0-0.4) X10*3/uL Baso # (Auto) 0.0 (0.0-0.2) X10*3/uL Abs Immat Gran (auto) 0.08 H (0.00-0.03) X10*3/uL Absolute Neuts (auto) 7.0 (2.0-8.3) x10*3/uL Absolute Nucleated RBC 0.000 (0.0-0.012) X10*3/uL Nucleated RBC % (auto) 0.0 (0.0-0.2) /100WBC Smear Tech's Comments VERIFIED Sodium 136 (135-145) mmol/L Potassium 4.9 (3.3-5.1) mmol/L Chloride 108 (96-108) mmol/L Carbon Dioxide 17 L (22-29) mmol/L Anion Gap 16 (12-20) BUN 67 H (9-16) mg/dL Creatinine 2.03 H (0.5-1.4) mg/dL Estim Creat Clear Calc 30.2 Estimated GFR 31 Random Glucose 203 H (60-115) mg/dL Lactic Acid 2.2 H* (0.5-2.0) mmol/L Calcium 8.8 (8.4-10.2) mg/dL Magnesium 2.7 H (1.6-2.6) mg/dL Total Bilirubin 0.2 (0.0-1.0) mg/dL Direct Bilirubin < 0.2 (0.0-0.5) mg/dL AST 37 (5-37) U/L ALT 12 (0-40) U/L Alkaline Phosphatase 86 (39-117) U/L Total Creatine Kinase 38 (38-174) U/L Troponin I High Sens 7.3 (<3.5-35.0) ng/L Total Protein 7.1 (6.5-8.0) g/dL Albumin 3.7 (3.5-5.0) g/dL Lipase 22 (8-78) U/L Influenza Type A (PCR) NEGATIVE (Negative) Influenza Type B (PCR) NEGATIVE (Negative) RSV RNA Qual (PCR) NEGATIVE (Negative) SARS-CoV-2 RNA (RT-PCR) NEGATIVE (Negative) Discharge Plan Discharge Prescriptions: No Action Breo Ellipta 100-25 mcg/dose blister with device 1 inh inhalation DAILY 90 Days Qty: 3 3RF finasteride 5 mg tablet 5 mg PO DAILY 90 Days Qty: 90 1RF amoxicillin-pot clavulanate [Augmentin] 500-125 mg tablet 1 tab PO TID 10 Days Qty: 30 0RF tramadol 50 mg tablet 50 mg PO BID PRN (Reason: pain) Qty: 8 0RF simvastatin 40 mg tablet 40 mg PO DAILY cetirizine 10 mg tablet 10 mg PO DAILY lisinopril-hydrochlorothiazide 10-12.5 mg tablet 1 tab PO DAILY glipizide 5 mg tablet extended release 24hr 5 mg PO DAILY albuterol sulfate [ProAir HFA] 90 mcg/actuation HFA aerosol inhaler 2 puff inhalation Q4-6H PRN (Reason: shortness of breath or wheezing) 60 Days Qty: 8.5 3RF famotidine 40 mg tablet 40 mg PO DAILY PRN fluticasone propionate [Flonase Allergy Relief] 50 mcg/actuation spray,suspension 1 spray intranasal BID PRN Rx Instructions: administer into each nostril calcium carbonate [Calcium 600] 600 mg calcium (1,500 mg) tablet 600 mg PO DAILY cholecalciferol (vitamin D3) 50 mcg (2,000 unit) capsule 50 mcg PO DAILY pantoprazole 40 mg tablet,delayed release (DR/EC) 40 mg PO DAILY dorzolamide 2 % drops 1 drp ophthalmic (eye) Q12H loperamide 2 mg capsule 2 mg PO DAILY PRN guaifenesin [Mucinex] 600 mg tablet extended release 12hr 600 mg PO DAILY aspirin 81 mg tablet,delayed release (DR/EC) 81 mg PO DAILY Print Language: Filipino
--- NOTE | 2024-12-04 11:49 | ECG_ITS ---
Test Reason : WEAKNESS Blood Pressure : */* mmHG Vent. Rate : 77 BPM Atrial Rate : 77 BPM P-R Int : 280 ms QRS Dur : 136 ms QT Int : 430 ms P-R-T Axes : 21 -54 -19 degrees QTcB Int : 486 ms Sinus rhythm with 1st degree A-V block with Premature supraventricular complexes Right bundle branch block Left anterior fascicular block Bifascicular block Possible Lateral infarct , age undetermined Abnormal ECG When compared with ECG of 20-Aug-2018 17:07, Premature supraventricular complexes are now Present Left anterior fascicular block is now Present Borderline criteria for Lateral infarct are now Present T wave inversion now evident in Anterior leads Referred By: Megan Pedroza Electronically Signed By: Mono Frankel
--- NOTE | 2024-12-04 11:54 | ED.GENADULT ---
HPI - General Adult General Chief complaint: General Medical Stated complaint: low bp Time Seen by Provider: 12/04/24 11:50 Source: patient Mode of arrival: ambulatory Limitations: no limitations History of Present Illness ED Provider: JEYSON Simmons HPI narrative: 84-year-old male history of bifascicular block, SA node dysfunction, CKD, shortness breath, prostate cancer, elevated PSA, peripheral artery disease, COPD presents to the emergency department with complaints of overall feeling unwell since Friday, 4 days ago. Patient reports he had diarrhea on Friday it lasted a day and then improved. Since then however, he has not been feeling well. He feels tired, weak in his having muscle aches. Related Data Home Medications ?Medication ?Instructions ?Recorded ?Confirmed simvastatin 40 mg tablet 40 mg PO DAILY 03/13/20 11/30/24 cetirizine 10 mg tablet 10 mg PO DAILY 07/11/20 11/30/24 famotidine 40 mg tablet 40 mg PO DAILY PRN 10/08/22 11/30/24 glipizide 5 mg tablet, extended 5 mg PO DAILY 10/08/22 11/30/24 release 24 hr lisinopril 10 1 tab PO DAILY 10/08/22 11/30/24 mg-hydrochlorothiazide 12.5 mg tablet pantoprazole 40 mg tablet,delayed 40 mg PO DAILY 05/06/23 11/30/24 release fluticasone propionate 50 1 spray intranasal BID PRN 09/25/23 11/30/24 mcg/actuation nasal spray,suspension (Flonase Allergy Relief) dorzolamide 2 % eye drops 1 drp ophthalmic (eye) Q12H 11/10/23 11/30/24 loperamide 2 mg capsule 2 mg PO DAILY PRN 03/08/24 11/30/24 calcium carbonate (Calcium 600) 600 mg PO DAILY 05/11/24 11/30/24 cholecalciferol (vitamin D3) 50 50 mcg PO DAILY 05/11/24 11/30/24 mcg (2,000 unit) capsule guaifenesin 600 mg tablet, 600 mg PO DAILY 07/28/24 11/30/24 extended release 12 hr (Mucinex) aspirin 81 mg tablet,delayed 81 mg PO DAILY 11/30/24 11/30/24 release Previous Rx's ?Medication ?Instructions ?Recorded albuterol sulfate 90 mcg/actuation 2 puff inhalation Q4-6H PRN 11/12/21 aerosol inhaler (ProAir HFA) shortness of breath or wheezing 60 days #8.5 grams Breo Ellipta 100 mcg-25 mcg/dose 1 inh inhalation DAILY COPD 90 06/18/24 powder for inhalation (fluticasone days #3 ea furoate-vilanterol) amoxicillin 500 mg-potassium 1 tab PO TID 10 days #30 tabs 08/06/24 clavulanate 125 mg tablet (Augmentin) tramadol 50 mg tablet 50 mg PO BID PRN pain #8 tabs 08/06/24 finasteride 5 mg tablet 5 mg PO DAILY 90 days #90 tabs 11/01/24 Allergies Allergy/AdvReac Type Severity Reaction Status Date / Time No Known Allergies (No Known Allergy Verified 12/04/24 11:43 Allergies*) Review of Systems Review of Systems: Yes all other systems are reviewed and are negative PMFSH Past Medical History Attestation statement: The following information was validated with the patient. Source: old records reviewed and nursing notes reviewed Medical History Cough Hypersomnia Stroke COPD exacerbation COPD (chronic obstructive pulmonary disease) Allergic rhinitis Surgical History Hx of cataract surgery (~09/2023) S/P tonsillectomy and adenoidectomy Hx of cholecystectomy History of appendectomy Family History Family History Mother No problems noted. Father Heart disease Social History Social History Alcohol intake: former Patient Tobacco Use Status: Former Tobacco user Years Smoked: 40 +/- Smoked in Last 30 Days: No Use of substances other than those prescribed or required for medical reasons: No Advance Directives: No Advance Directives Information Provided: Yes Physical Exam ED Exam Exam: Appearance: Alert.? Oriented X3.? No acute distress.? Head: Normocephalic, atraumatic, no step-offs or deformities Eyes: Pupils equal, round and reactive to light.? ENT: Pharynx normal.? Neck: Normal inspection.? Neck supple.? CVS: Normal heart rate and rhythm.? Pulses normal.? Respiratory: No respiratory distress.? Breath sounds normal.? Abdomen: Soft and nontender.? Skin: Skin warm and dry.? Normal skin color.? Normal skin turgor.? Extremities: No lower extremity edema.? No calf ttp. 5/5 strength to bilateral upper and lower extremities Back: No midline tenderness, no C-spine tenderness, full range of motion, no CVA tenderness bilaterally Neuro: Oriented X 3.? No motor deficit.? No sensory deficit. CN 2-12 intact Vital Signs: Vital Signs - 24 hr 12/04/24 11:43 12/04/24 12:01 12/04/24 12:44 Temperature 96.8 F 97.8 F Pulse Rate 87 83 70 Respiratory Rate 16 19 17 Blood Pressure 145/66 H 121/60 124/58 L Pulse Oximetry 97 94 96 Oxygen Delivery Method Room Air Room Air Room Air 12/04/24 12:46 12/04/24 12:48 12/04/24 12:49 Temperature Pulse Rate 67 82 79 Respiratory Rate Blood Pressure 128/56 L 141/54 H 103/51 L Pulse Oximetry Oxygen Delivery Method 12/04/24 14:00 12/04/24 17:13 12/04/24 17:23 Temperature 97.5 F 97.6 F Pulse Rate 64 69 68 Respiratory Rate 16 18 20 Blood Pressure 136/61 124/47 L 113/48 L Pulse Oximetry 98 97 97 Oxygen Delivery Method Room Air Room Air Room Air 12/04/24 18:00 Temperature Pulse Rate 70 Respiratory Rate 19 Blood Pressure 151/63 H Pulse Oximetry 96 Oxygen Delivery Method Room Air BMI result Body Mass Index 35.2 vss Course Reevaluation(s) Reevaluation #1: CBC with a normocytic anemia appears to be around patient's baseline. Chemistry with elevation in BUN and creatinine significantly deviating from his baseline. Lactic acidosis 2.2. Urine clean. Flu, COVID, RSV negative. Patient was covered with broad-spectrum antibiotics and given fluids. CT abdomen and pelvis pending. X-ray chest pending Time: 16:30 Reevaluation #2: Patient has been having a very wet cough, I looked at his chest x-ray and it looks like he may have a new mass however there is no report in the computer yet. Reports nagging cough for weeks. CT abdomen pelvis pending plan hospital admission Time: 17:20 Reevaluation #3: Chest x-ray unremarkable ABd ct pending. SIgn out to Juan tinajero admission for KARLA, lactic acidosis Time: 18:41 Additional Reevaluation(s): 8:34 PM 12/04/2024 (Kia BENÍTEZ): The patient was signed out to this provider at shift change. In summary the patient is an 84-year-old male presenting to the ED for evaluation of diarrhea and generalized fatigue/malaise. The patient was found to have acute kidney injury, was initiated IV fluids, however was also found to have a lactic acid for which blood cultures were drawn and the patient was initiated on Rocephin. Patient case was discussed with the admitting hospitalist by the initial provider, however plan was to obtain CT abdomen and then follow up. Patient was signed out to this provider pending results of CT abdomen. The patient's CT abdomen and pelvis has resulted in shows question diverticulitis versus colitis. In the setting of lactic acidosis, KARLA, and diarrhea, we will treat for suspected colitis versus diverticulitis. Patient has received ceftriaxone, we will add on Zosyn. Medications Administered Discontinued Medications Generic Name Dose Route Start Last Admin Trade Name Freq PRN Reason Stop Dose Admin Ceftriaxone Sodium 1 gm 12/04/24 14:08 12/04/24 14:23 Ceftriaxone Sodium 1 Gm Vial IVPUSH 12/04/24 14:09 1 gm ONCE ONE Administration Sodium Chloride 1,000 mls @ 999 mls/hr 12/04/24 13:00 12/04/24 14:24 Ns IV 12/04/24 14:00 Infused .Q1H1M CELY Infusion Sodium Chloride 3,061.74 mls @ 3,061.74 mls/hr 12/04/24 14:08 12/04/24 17:07 Ns 30 ml/kg infuse over 1 hr (3061.74 ml) 12/04/24 15:07 Infused IV Infusion .Q1H STA Medical Decision Making Medical Decision Making [facility] Narrative: 1155 84-year-old male presents with fatigue, malaise, myalgias and feeling overall unwell since Friday. Reports subjective hypotension. Physical exam benign. Orthostatic vital signs ordered and pending. Neurological assessment intact. NIH stroke scale 0. Cerebellar intact history and physical exam concerning for possible electrolyte abnormalities, dysrhythmias. Unlikely ACS, PE, stroke, posterior stroke. Will rule out viral illness such as flu, COVID, RSV Plan labs, viral testing, urine Differential Diagnosis Differential Diagnoses: The differential diagnosis associated with the presentation includes Admission/Observation Consideration of admission/observation: Escalation of care including admission/observation considered Lab Data MDM Lab Attestation statement: I reviewed the patient's lab results. 12/04/24 12:23 12/04/24 12:23 Labs: Lab Results 12/04/24 12/04/24 12/04/24 Range/Units 12:23 12:44 13:21 WBC 10.2 (4.8-10.8) X10*3/uL RBC 4.55 L (4.60-5.80) X10*6/uL Hgb 12.1 L (14.0-18.0) g/dl Hct 36.5 L (42.0-52.0) % MCV 80.2 (80.0-98.0) fL MCH 26.6 L (27.0-33.0) pg MCHC 33.2 (31.0-36.0) g/dl RDW 14.6 (11.0-16.0) % Plt Count TNP MPV TNP Immature Gran % (Auto) 0.8 H (0.0-0.4) % Neut % (Auto) 68.6 (45-73) % Lymph % (Auto) 19.0 L (20-40) % [place] % (Auto) 5.4 (2-11) % Eos % (Auto) 5.8 H (0-4) % Baso % (Auto) 0.4 (0-2) % Lymph # (Auto) 1.9 (1.2-4.9) X10*3/uL [place] # (Auto) 0.6 (0.1-1.2) X10*3/uL Eos # (Auto) 0.6 H (0.0-0.4) X10*3/uL Baso # (Auto) 0.0 (0.0-0.2) X10*3/uL Abs Immat Gran (auto) 0.08 H (0.00-0.03) X10*3/uL Absolute Neuts (auto) 7.0 (2.0-8.3) x10*3/uL Absolute Nucleated RBC 0.000 (0.0-0.012) X10*3/uL Nucleated RBC % (auto) 0.0 (0.0-0.2) /100WBC Smear Tech's Comments VERIFIED Sodium 136 (135-145) mmol/L Potassium 4.9 (3.3-5.1) mmol/L Chloride 108 (96-108) mmol/L Carbon Dioxide 17 L (22-29) mmol/L Anion Gap 16 (12-20) BUN 67 H (9-16) mg/dL Creatinine 2.03 H (0.5-1.4) mg/dL Estim Creat Clear Calc 30.2 Estimated GFR 31 Random Glucose 203 H (60-115) mg/dL Lactic Acid 2.2 H* (0.5-2.0) mmol/L Lactic Acid F/U @ 2Hr (0.5-2.0) mmol/L Calcium 8.8 (8.4-10.2) mg/dL Magnesium 2.7 H (1.6-2.6) mg/dL Total Bilirubin 0.2 (0.0-1.0) mg/dL Direct Bilirubin < 0.2 (0.0-0.5) mg/dL AST 37 (5-37) U/L ALT 12 (0-40) U/L Alkaline Phosphatase 86 (39-117) U/L Total Creatine Kinase 38 (38-174) U/L Troponin I High Sens 7.3 (<3.5-35.0) ng/L Total Protein 7.1 (6.5-8.0) g/dL Albumin 3.7 (3.5-5.0) g/dL Lipase 22 (8-78) U/L Urine Color Urine Appearance Urine pH (5.0-9.0) Ur Specific Godwin (1.005-1.025) Urine Protein (Neg-Trace) mg/dL Urine Glucose (UA) (Negative) mg/dL Urine Ketones (Negative) mg/dL Urine Blood (Negative) Urine Nitrite (Negative) Ur Leukocyte Esterase (Negative) Urine RBC (0-2) /HPF Urine WBC (0-5) /HPF Ur Squamous Epith Cells (0-2) /HPF Urine Bacteria (None Seen) Hyaline Casts (0-2) /LPF Influenza Type A (PCR) NEGATIVE (Negative) Influenza Type B (PCR) NEGATIVE (Negative) RSV RNA Qual (PCR) NEGATIVE (Negative) SARS-CoV-2 RNA (RT-PCR) NEGATIVE (Negative) 12/04/24 12/04/24 Range/Units 14:17 16:37 WBC (4.8-10.8) X10*3/uL RBC (4.60-5.80) X10*6/uL Hgb (14.0-18.0) g/dl Hct (42.0-52.0) % MCV (80.0-98.0) fL MCH (27.0-33.0) pg MCHC (31.0-36.0) g/dl RDW (11.0-16.0) % Plt Count MPV Immature Gran % (Auto) (0.0-0.4) % Neut % (Auto) (45-73) % Lymph % (Auto) (20-40) % [place] % (Auto) (2-11) % Eos % (Auto) (0-4) % Baso % (Auto) (0-2) % Lymph # (Auto) (1.2-4.9) X10*3/uL [place] # (Auto) (0.1-1.2) X10*3/uL Eos # (Auto) (0.0-0.4) X10*3/uL Baso # (Auto) (0.0-0.2) X10*3/uL Abs Immat Gran (auto) (0.00-0.03) X10*3/uL Absolute Neuts (auto) (2.0-8.3) x10*3/uL Absolute Nucleated RBC (0.0-0.012) X10*3/uL Nucleated RBC % (auto) (0.0-0.2) /100WBC Smear Tech's Comments Sodium (135-145) mmol/L Potassium (3.3-5.1) mmol/L Chloride (96-108) mmol/L Carbon Dioxide (22-29) mmol/L Anion Gap (12-20) BUN (9-16) mg/dL Creatinine (0.5-1.4) mg/dL Estim Creat Clear Calc Estimated GFR Random Glucose (60-115) mg/dL Lactic Acid (0.5-2.0) mmol/L Lactic Acid F/U @ 2Hr 1.9 (0.5-2.0) mmol/L Calcium (8.4-10.2) mg/dL Magnesium (1.6-2.6) mg/dL Total Bilirubin (0.0-1.0) mg/dL Direct Bilirubin (0.0-0.5) mg/dL AST (5-37) U/L ALT (0-40) U/L Alkaline Phosphatase (39-117) U/L Total Creatine Kinase (38-174) U/L Troponin I High Sens (<3.5-35.0) ng/L Total Protein (6.5-8.0) g/dL Albumin (3.5-5.0) g/dL Lipase (8-78) U/L Urine Color Yellow Urine Appearance Clear Urine pH 5.0 (5.0-9.0) Ur Specific Godwin 1.020 (1.005-1.025) Urine Protein Negative (Neg-Trace) mg/dL Urine Glucose (UA) Negative (Negative) mg/dL Urine Ketones Negative (Negative) mg/dL Urine Blood Negative (Negative) Urine Nitrite Negative (Negative) Ur Leukocyte Esterase Trace H (Negative) Urine RBC 0-2 (0-2) /HPF Urine WBC 0-5 (0-5) /HPF Ur Squamous Epith Cells 0-2 (0-2) /HPF Urine Bacteria None Seen (None Seen) Hyaline Casts 0-2 (0-2) /LPF Influenza Type A (PCR) (Negative) Influenza Type B (PCR) (Negative) RSV RNA Qual (PCR) (Negative) SARS-CoV-2 RNA (RT-PCR) (Negative) Critical Care Time Critical Care Time Critical Care Time: Yes Total Critical Care Time: 45 Attestation: I attest to this time spent taking care of the patient, obtaining history, physical, reviewing labs, imaging, treatment of patients condition +/- specialist/hospitalist consult +/- procedure Discharge Plan Discharge Clinical Impression: KARLA (acute kidney injury), Acidosis, lactic, Bronchitis Patient Disposition: Admitted As Inpatient Print Language: Comoran
--- NOTE | 2024-12-04 12:29 | PC.NURSE ---
Addendum entered by Vanessa Fuentes RN 12/04/24 12:30: Patient is a 83-year-old man with a history of longstanding hypertension and diabetes mellitus with CKD 3. He has a history of hyperkalemia back in April 2022. This was treated medically. He was using salt substitute while he was on lisinopril. Lisinopril was placed on hold and restarted again. Over the last few months serum potassium has been in the normal range. Baseline serum creatinine is around 1.5 mg/dL. He has a history of prostate cancer and is being followed by Dr. Beatty. Patient presents today with c/o fatigue since seeing his neurologist. awake overnight monitor shows NSR. Lungs essentially clear but decreased in the left base. Respirations even and non-labored. Abdomen soft, non-tender with positive bowel sounds. Positive pedal pulses with no edema noted. Original Note: Medical History Cough Hypersomnia Stroke COPD exacerbation COPD (chronic obstructive pulmonary disease) Allergic rhinitis
--- OUTSIDE RECORDS SUMMARY | 2024-12-04 12:32 | XMS_ITS | Patient Health Record ---
Author Organization [facility] Address [address] [place] [address] Care Team Providers Care Renal Social Worker Name Role Phone Puneetgary Monica Primary Care Provider Julio Cesar Green [phone] Allergies No Known Allergies Results Component Value Reference Range Notes Ferritin Reviewed date:08/21/2024 10:07:00 PM Interpretation: Performing Lab:[facility], [address] [place] [phone] Notes/Report: Ferritin 86 20-250 ng/mL Calprotectin, Fecal Reviewed date:09/05/2024 12:15:05 AM Interpretation: Performing Lab:[facility], [address] [place] [phone] Notes/Report: Calprotectin, Fecal 192 Reference Range: <50 [...] borderline values. THIS TEST WAS PERFORMED AT: [employer] [address] [place] [address] JOEL JUAREZ MD,PHD,TERESO GI PANEL Reviewed date:08/25/2024 07:32:48 AM Interpretation: Performing Lab:[facility], [address] [place] [phone] Notes/Report: Campylobacter Not Detected Not Detect. Plesiomonas [...] is performed by Multiplexed PCR, utilizing the Quividi Array. Complete Blood Count Auto Di ff Reviewed date:08/21/2024 10:05:57 PM Interpretation: Performing Lab:[facility], [address] [place] [phone] Notes/Report: White Blood Count 7.9 4.8-10.8 X10*3/uL [...] te Reviewed date:08/21/2024 10:05:25 PM Interpretation: Performing Lab:[address] [phone] Notes/Report: Erythrocyte Sedimentation Rate 34 0-15 MM/HR Patients with polycythemia and many hemoglobin abnormalities may have depressed sed rates whereas patients with anemia may have elevated sed rates. IRON PROFILE Reviewed date:08/21/2024 10:05:44 PM Interpretation: Performing Lab:[address] [phone] Notes/Report: Iron 33 45-160 mcg/dL Total Iron Binding Capacity 228 228-428 mcg/dL Percent Iron Saturation 14 15-50 % Unsaturated Iron Binding 195 C Reactive Protein Reviewed date:08/21/2024 10:05:37 PM Interpretation: Performing Lab:[facility], [address] [place] [phone] Notes/Report: C Reactive Protein 0.24 < or = 0.50 mg/dL Celiac Disease Panel Reviewed date:08/23/2024 10:54:56 PM Interpretation: Performing Lab:[facility], [address] [place] [phone] Notes/Report: Immunoglobulin A 195 70-320 mg/dL THIS TEST WAS PERFORMED AT: [employer] [address] [place] [phone] JES MCLAUGHLIN MD Transglutaminase IgA <1.0 Value [...] PCR Reviewed date:08/23/2024 10:54:06 PM Interpretation: Performing Lab:[facility], [address] [place] [phone] Notes/Report: CDiff Gene PCR NEGATIVE Negative If C. difficile strongly suspected despite one negative test, a second test may be sent vs. empiric treatment for C. difficile infection. 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) Active confirmed Problem 91674704 Diarrhea, unspecified type (R19.7) Active confirmed Problem 102927622 Angiodysplasia o f stomach (K31.819) Active confirmed Vital Signs Blood pressure diastolic 77 mm Hg 08/19/2024 Height 69 in 08/19/2024 Blood pressure systolic 111 mm Hg 08/19/2024 Weight 159 lbs 08/19/2024 BMI 23.48 kg/m2 08/19/2024 Encounters Encounter Location Date Provider Diagnosis [facility] [address] [place] [phone] 04/27/2024 Julio Cesar Chaparro Diarrhea, unspecifie d type R19.7 and Iron deficiency anemia due to chronic blood loss D50.0 [facility] [address] [place] [phone] 08/19/2024 Julio Cesar Chaparro Diarrhea, unspecifie d type R19.7 and Iron deficiency anemia due to chronic blood loss D50.0 [facility] [address] [place] [address] 07/13/2024 Julio Cesar Chaparro [facility] [address] [place] [phone] 08/18/2024 Julio Cesar Chaparro Assessments Encounter Date [...] Date [employer] PREFERRED [address] [place] [address] [id number] LOPEZ CASEY Self - patient is the insured Medical (General) History Medical History History ICD Code Strokes--sees Dr. Ornelas NIDDM Hypertension Asthma COPD Denies CO,renal disease Iron deficiency anemia-he wa s hospitalized [...]
--- OUTSIDE RECORDS SUMMARY | 2024-12-04 12:32 | XMS_ITS | Patient Health Record ---
Author Organization [facility] Jasbir [place] Address [address] [place] [address] Care Team Providers Care Brick Wheeler Name Role Phone Monica Darby Primary Care Provider Unavailab Fabricio Granados Unavailable [phone] Allergies No Known Allergies Results Component Value [...] Referring Provider Last Name Wilner [facility] Aleksandar Referred Provider Fabricio Juan Referred Address [address] [place],[address], Referred Provider Specialty Podiatry Referral Priority Routine [...] Problem Acquired hammer toe of right foot (47213780877150 05) Other hammer toe(s) (acquired), right foot (M20.41) Active confirmed Problem Acquired hammer toe of left foot ([id number] 03) Other hammer toe(s) (acquired), left foot (M20.42) Active confirmed Problem Type 2 diabetes mellitus with peripheral angiopathy (899792064) 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.51) Active confirmed Vital Signs Blood pressure diastolic 65 mm Hg 11/26/2024 Height 5 ft 6 in in 11/26/2024 Blood pressure systolic 128 mm Hg 11/26/2024 Weight 160 lbs 11/26/2024 BMI 25.82 kg/m2 11/26/2024 Procedures Procedure Date Ordered Date Performed Result Body Sit e 51906-FSDSQAZ NAIL, 1-5 02/24/2024 N/A 01259-JIZA SKIN LESIONS, OVER 4 02/24/2024 N/A D6145-QLTKOWNG DYSTROPHIC NAILS ANY # 02/24/2024 N/A 69595-XPZBJQB NAIL, 1-5 05/25/2024 N/A 33094-EIPB SKIN LESIONS, OVER 4 05/25/2024 N/A O5900-VAJPMDIC DYSTROPHIC NAILS ANY # 05/25/2024 N/A 98249-NIDIPEZ NAIL, 1-5 08/24/2024 N/A 42149-MXMG SKIN LESIONS, OVER 4 08/24/2024 N/A S1619-YYOQATDF DYSTROPHIC NAILS ANY # 08/24/2024 N/A 04436-EBBCYCB NAIL, 1-5 11/26/2024 N/A 91506-BTXC SKIN LESIONS, OVER 4 11/26/2024 N/A G8524-SNKORJCG DYSTROPHIC NAILS ANY # 11/26/2024 N/A Encounters Encounter Location Date Provider Diagnosis [facility] [address] 02/24/2024 Fabricio Parrunier Type 2 diabetes mellitus with diabetic peripheral angiopathy without gangrene E11.51 ; Tinea unguium B35.1 ; Pain in right toe(s) M79.674 ; Pain in left toe(s) M79.675 and Xerosis of skin L85.3 [facility] [address] 05/25/2024 Fabricio Juan Type 2 diabetes mellitus with diabetic peripheral angiopathy without gangrene E11.51 ; Tinea unguium B35.1 ; Pain in right toe(s) M79.674 ; Pain in left toe(s) M79.675 ; Other hammer toe(s) (acquired), right foot M20.41 and Other hammer toe(s) (acquired), left foot M20.42 [facility] [address] 08/24/2024 Fabricio Juan Tinea unguium B35.1 ; Type 2 diabetes mellitus with diabetic peripheral angiopathy without gangrene E11.51 ; Pain in right toe(s) M79.674 and Pain in left toe(s) M79.675 [facility] [address] 11/26/2024 Fabricio Parrunier Tinea unguium B35.1 ; Type 2 diabetes [...] X ray : Foot, left 3V 02/06/2022 09181-IJUTQSE NAIL, -05/07/2022 69143-LFRMNPP NAIL, -01/21/2022 89931-MYDJNNL NAIL, -08/13/2022 66809-XAZRCXF NAIL, -11/12/2022 39104-QUPNORT NAIL, -02/04/2023 24935-XXXJTYA NAIL, -06/13/2023 63009-XSUXLSJ NAIL, -11/21/2023 73797-RYIAEST NAIL, -02/24/2024 75684-HNWGJCH NAIL, -05/25/2024 00190-MEBTLWG NAIL, -08/24/2024 50658-JUDNYFA NAIL, -11/26/2024 55949-Chfo Destruction, -02/04/2023 62899-Cerq Destruction, -11/12/2022 74006-Ryeq Destruction, -08/13/2022 95762-Ydnv Destruction, -01/21/2022 03056-Hbzf Destruction, -05/07/2022 57546-AIJS SKIN LESIONS, OVER 4 05/07/19 23 06372-BFGQ SKIN LESIONS, OVER 4 01/22/20 99529-GYJS SKIN LESIONS, OVER 4 08/14/19 56364-ZBJS SKIN LESIONS, OVER 4 11/13/19 23 56495-ADYY SKIN LESIONS, OVER 4 02/05/20 14629-FSHZ SKIN LESIONS, OVER 4 11/21/19 85101-XTED SKIN LESIONS, OVER 4 06/13/19 24 23745-FTAW SKIN LESIONS, OVER 4 11/27/19 76722-NYVY SKIN LESIONS, OVER 4 08/25/19 61542-BUNF SKIN LESIONS, OVER 4 05/25/19 04636-GSIC SKIN LESIONS, OVER 4 02/24/20 X6098-BZVYAXWZ DYSTROPHIC NAILS ANY # H9267-HBIFIONC DYSTROPHIC NAILS ANY # M7647-UXGUINBB DYSTROPHIC NAILS ANY # Y1130-CAKOIJVH DYSTROPHIC NAILS ANY # Q8763-UMVQZIMI DYSTROPHIC NAILS ANY # U3984-MSBYNYBR DYSTROPHIC NAILS ANY # H4082-OVXEBHLK DYSTROPHIC NAILS ANY # A9970-EESXABUP DYSTROPHIC NAILS ANY # D5860-PLIVGBVF DYSTROPHIC NAILS ANY # E6619-WFHRAFKG DYSTROPHIC NAILS ANY # M5436-AEGFQRNL DYSTROPHIC NAILS ANY # Next Appt Details Provider Name:Fabricio Juan , 03/15/2025 11:30:00 AM, [address] [place], [address], Insurance Providers Payer Name Payer Address Payer Phone Subscriber Number Group Number Insured Name Patient Relationship to Insured Coverage Start Date Coverage End Date [employer] Preferred [address] [place] [address] [phone] [id number] Jhonny Shrestha Self - patient is the insured Medical (General) History Medical History History ICD Code asthma Diabetic type ll Lung disease Parkinsons disease Stroke Chicken pox COPD Colon CA Hypercholesterolemia Hypertension Surgical History Surgery Date(Month/Year) appendectomy gall bladder cataract surgery Hospitalization History Reason Date(Month/Year) Ultrasound both legs for veins 2021
--- OUTSIDE RECORDS SUMMARY | 2024-12-04 12:32 | XMS_ITS | Clinical Summary ---
Author Organization [facility] Address [address] [place] [address] Care Team Providers Care Color Corrector Name Role Phone Unavailable Primary Care Provider [...]
--- OUTSIDE RECORDS SUMMARY | 2024-12-04 12:32 | XMS_ITS | Clinical Summary ---
Author Organization [facility] Address [address] [place] [address] Care Team Providers Care Web Ui Designer Name Role Phone Monica Darby MD Primary [...] DAILY 3 Active Lancets (OneTouch Delica Plus [id number]) misc USE TO CHECK SUGARS DAILY 3 [...] patient's age to complete this topic Insurance [facility] Care Teams Web Ui Designer Relationship Specialty Start Date End Date Monica Darby MD [address] [place] [address] PCP - General Internal Medicine 05/14/22
[2024-12-04 12:37] LABS: Hematocrit 36.5 % (42.0-52.0); Hemoglobin 12.1 g/dl (14.0-18.0); Imm Gran Abs Auto 0.08 X10*3/uL (0.00-0.03); Imm Gran Pct Auto 0.8 % (0.0-0.4); Lymphocytes Absolute Auto 1.9 X10*3/uL (1.2-4.9); MANUAL DIFF FLAG SCAN; Mean Corpuscular HGB Conc 33.2 g/dl (31.0-36.0); Mean Corpuscular Hemoglobin 26.6 pg (27.0-33.0); Mean Corpuscular Volume 80.2 fL (80.0-98.0); NRBC Abs Auto 0.000 X10*3/uL (0.0-0.012); NRBC Pct Auto 0.0 /100WBC (0.0-0.2); PLT CLUMP 1; Red Blood Count 4.55 X10*6/uL (4.60-5.80); SCAN SMEAR FLAG 1
[2024-12-04 12:46] LABS: Alanine Aminotransferase 12 U/L (0-40); Albumin Level 3.7 g/dL (3.5-5.0); Alkaline Phosphatase 86 U/L (39-117); Anion Gap 16 (12-20); Aspartate Amino Transferase 37 U/L (5-37); Blood Urea Nitrogen 67 mg/dL (9-16); Calcium 8.8 mg/dL (8.4-10.2); Carbon Dioxide 17 mmol/L (22-29); Chloride 108 mmol/L (96-108); Creatinine Clr Calc Pharmacy 30.2; Estimated Glomerular Filt Rate 31; Lipase 22 U/L (8-78); Magnesium 2.7 mg/dL (1.6-2.6); Potassium 4.9 mmol/L (3.3-5.1); Sodium 136 mmol/L (135-145); Total Protein 7.1 g/dL (6.5-8.0)
[2024-12-04 12:52] LABS: Troponin-I High Sensitivity 7.3 ng/L (<3.5-35.0)
[2024-12-04 12:54] LABS: White Blood Count 10.2 X10*3/uL (4.8-10.8)
[2024-12-04 14:08] LABS: Resp Syncy Virus RNA Qual PCR NEGATIVE (Negative); SARS COV2 PCR INHOUSE NEGATIVE (Negative)
[2024-12-04] MEDS: 0.9 % Sodium Chloride 3,061.74 ML 3061.74 ML IV (14:23)
[2024-12-04 14:31] LABS: Appearance Urine Clear; Glucose Urine UA Negative (Negative); PH 5.0 (5.0-9.0); Specific Gravity - Urine 1.020 (1.005-1.025); UMIC TRIGGER UACC YES
[2024-12-04 15:27] LABS: Reflex Lactate? Lactic Acid Added
[2024-12-04 16:56] LABS: ~Lactic Acid-LAB USE ONLY 1.9 mmol/L (0.5-2.0)
--- NOTE | 2024-12-04 17:09 | PC.NURSE ---
No stool noted since arrival. Crackers and gingerale provided.
[2024-12-04] MEDS: metroNIDAZOLE/NS 500 MG/100 ML PIGGYBACK 100 MG IV (21:21)
--- NOTE | 2024-12-04 23:02 | PC.NURSE ---
Patient seen ambulating to bathroom with door frame builder. Patient is a standby assist to the bathroom. [facility] walked [facility] webster [facility] reach. All questions answered, denies needing anything at the moment. Plan of care ongoing.
--- NOTE | 2024-12-05 | ECG_ITS ---
Test Reason : BERNARDO Blood Pressure : */* mmHG Vent. Rate : 54 BPM Atrial Rate : * BPM P-R Int : * ms QRS Dur : 118 ms QT Int : 448 ms P-R-T Axes : * -55 -15 degrees QTcB Int : 424 ms Sinus bradycardia with first degree AV block alternating with 2:1 block Left axis deviation Low voltage QRS Right bundle branch block Abnormal ECG When compared with ECG of 04-Dec-2024 11:53, with 2:1 A-V conduction first 3 beat. Referred By: Omayra Cartagena Electronically Signed By: Mono Frankel
--- NOTE | 2024-12-05 00:07 | PC.NURSE ---
Patient becoming bradycardic on montior, notifed MD. Patient HR into the 30s at times, comes back to 64 moments after.
--- NOTE | 2024-12-05 00:37 | PC.NURSE ---
hospitalist at bedside, EKGs done for bradycardia
[2024-12-05] MEDS: Lactated Ringers 1,000 ML 999 ML IV (01:00)
[2024-12-05 01:36] LABS: Troponin-I High Sensitivity 9.6 ng/L (<3.5-35.0)
--- NOTE | 2024-12-05 02:03 | PM.IMHP ---
History of Present Illness Date of Service: 12/04/24 Attending physician on admission: Omayra Cartagena Chief Complaint: Weakness Jhonny Shrestha is a 84 years old man with past medical history significant for essential hypertension, stroke in 2019, COPD -not home O2, PAD, colitis/diarrhea, GERD, depression, type 2 diabetes mellitus, CKD stage 3B, essential tremors and hyperlipidemia presents to the emergency department complaining of generalized weakness. Patient is a very vague historian. He mentioned that he has been having nonbloody diarrhea. He is a endorses constant shortness on breath. Denied chest pain, headache, abdominal pain or dysuria. Surgical history significant for appendectomy and cholecystectomy. Patient does follows with kiln firer, Dr. Ornelas, as he has bifascicular block and sinoatrial suhail dysfunction. He is a former tobacco smoker, smoked for over 40 years. In the ED, in the ED he was found to have stable vital signs. Last blood pressure is 120/54. He had several episodes of bradycardia (30-50). ECG showed junctional rhythm with a heart rate of 54 beats per minute. Blood workup showed no leukocytosis. Hemoglobin is 12.1 and platelets TNP. There is mild lactic acidosis, 2.2 the normalized 0.9. Urinalysis unremarkable. Troponin 7.3 and 9.6. Viral testing is negative for COVID-19, influenza and RSV. CXR is negative. Abdominal pelvis CT scan without contrast showed finding that may represent colitis/diverticulitis, there is moderate sigmoid diverticulitis and moderate-sized hiatal hernia. ED tx: Patient received a total of 4 L NS/LR. Flagyl 500 mg IV, ceftriaxone 1 g IV Review of Systems Review of Systems: All 12 systems were reviewed and normal except as noted in HPI. [facility] Medical History Cough Hypersomnia Stroke COPD exacerbation COPD (chronic obstructive pulmonary disease) Allergic rhinitis Family History Mother No problems noted. Father Heart disease Surgical History Hx of cataract surgery (~09/2023) S/P tonsillectomy and adenoidectomy Hx of cholecystectomy History of appendectomy Social History Alcohol intake: former Patient Tobacco Use Status: Former Tobacco user Years Smoked: 40 +/- Smoked in Last 30 Days: No Use of substances other than those prescribed or required for medical reasons: No Advance Directives: No Advance Directives Information Provided: Yes Nutrition Risks: No Nutritional Risk Meds Allergies Allergy/AdvReac Type Severity Reaction Status Date / Time No Known Allergies (No Known Allergy Verified 12/04/24 11:43 Allergies*) Active Medications: Current Medications Acetaminophen (Acetaminophen 325 Mg Tablet) 975 mg PO Q6H PRN PRN Reason: Pain, Mild 1-3,fever,headache Calcium Carbonate (Calcium Carbonate 750 Mg Tab.Chew) 750 mg PO Q4H PRN PRN Reason: Heartburn Ceftriaxone Sodium (Ceftriaxone Sodium 1 Gm Vial) 1 gm IVPUSH Q24H CELY Dextrose (Dextrose 50 % 25 Gm/50 Ml Syringe) 25 gm IVPUSH Q15M PRN; Protocol PRN Reason: per Hypoglycemia Standing Ord. Glucose (Glucose Gel 15 Gm Gel..Gram.) 15 gm PO Q15M PRN; Protocol PRN Reason: per Hypoglycemia Standing Ord. Heparin Sodium (Porcine) (Heparin Sodium,Porcine 5,000 Unit/Ml Vial) 5,000 unit SUBCUT Q12H [facility] Metronidazole (Flagyl) 500 mg in 100 mls @ 100 mls/hr IV Q8H [facility]1983 Insulin Human Lispro (Insulin Lispro 100 Unit/Ml 3 Ml Vial) 0 unit SUBCUT QIDACHS [facility], 1928[facility]1983; Protocol Magnesium Hydroxide (Milk Of Magnesia 30 Ml Oral.Susp) 30 ml PO DAILY PRN PRN Reason: Constipation Melatonin (Melatonin 3 Mg Tablet) 6 mg PO BEDTIME PRN PRN Reason: Insomnia Sodium Chloride (0.9 % Sodium Chloride Flush 3 Ml Syringe) 3 ml IVFLUSH QSHIFT [facility] Home Medications ?Medication ?Instructions ?Recorded ?Confirmed ?Last Taken ?Type simvastatin 40 mg tablet 40 mg PO DAILY 03/13/20 11/30/24 Unknown History cetirizine 10 mg tablet 10 mg PO DAILY 07/11/20 11/30/24 Unknown History famotidine 40 mg tablet 40 mg PO DAILY PRN 10/08/22 11/30/24 Unknown History glipizide 5 mg tablet, extended 5 mg PO DAILY 10/08/22 11/30/24 Unknown History release 24 hr lisinopril 10 1 tab PO DAILY 10/08/22 11/30/24 Unknown History mg-hydrochlorothiazide 12.5 mg tablet pantoprazole 40 mg tablet,delayed 40 mg PO DAILY 05/06/23 11/30/24 Unknown History release fluticasone propionate 50 1 spray intranasal BID PRN 09/25/23 11/30/24 Unknown History mcg/actuation nasal spray,suspension (Flonase Allergy Relief) dorzolamide 2 % eye drops 1 drp ophthalmic (eye) Q12H 11/10/23 11/30/24 Unknown History loperamide 2 mg capsule 2 mg PO DAILY PRN 03/08/24 11/30/24 Unknown History calcium carbonate (Calcium 600) 600 mg PO DAILY 05/11/24 11/30/24 Unknown History cholecalciferol (vitamin D3) 50 50 mcg PO DAILY 05/11/24 11/30/24 Unknown History mcg (2,000 unit) capsule guaifenesin 600 mg tablet, 600 mg PO DAILY 07/28/24 11/30/24 Unknown History extended release 12 hr (Mucinex) aspirin 81 mg tablet,delayed 81 mg PO DAILY 11/30/24 11/30/24 Unknown History release Physical Exam Vital Signs and Narrative: Vital Signs: Last Vital Signs Temp 98.2 F 12/04/24 23:11 Pulse 67 12/04/24 23:11 Resp 14 12/04/24 23:11 BP 120/54 L 12/04/24 23:11 Pulse Ox 96 12/04/24 23:11 O2 Del Method Room Air 12/04/24 23:11 BMI result Body Mass Index 35.2 Constitutional - Awake and Alert, No apparent distress HEENT - PER, EOMI Heart - RRR, No murmurs Lungs - Normal lung expansion, Normal respiratory effort, No respiratory distress, CTA bilaterally Abdomen - NT / ND; +BS; No rebound or guarding Extremities - no calf tenderness bilaterally, no swelling Musculoskeletal - Normal inspection, normal ROM Skin - Warm/Dry Neurological - mildly somnolent. Oriented x3. Moving all extremities spontaneously. Normal speech. Psychological - Appropriate affect Results Labs 12/04/24 12:23 12/04/24 12:23 Labs: Laboratory Results - last 24 hr 12/04/24 12/04/24 12/04/24 12:23 12:44 13:21 MCV 80.2 MCH 26.6 L MCHC 33.2 RDW 14.6 Plt Count TNP MPV TNP Immature Gran % (Auto) 0.8 H Neut % (Auto) 68.6 Lymph % (Auto) 19.0 L [place] % (Auto) 5.4 Eos % (Auto) 5.8 H Baso % (Auto) 0.4 Lymph # (Auto) 1.9 [place] # (Auto) 0.6 Eos # (Auto) 0.6 H Baso # (Auto) 0.0 Abs Immat Gran (auto) 0.08 H Absolute Neuts (auto) 7.0 Absolute Nucleated RBC 0.000 Nucleated RBC % (auto) 0.0 Smear Tech's Comments VERIFIED Anion Gap 16 Estim Creat Clear Calc 30.2 Estimated GFR 31 Random Glucose 203 H Lactic Acid 2.2 H* Lactic Acid F/U @ 2Hr Calcium 8.8 Magnesium 2.7 H Total Bilirubin 0.2 Direct Bilirubin < 0.2 AST 37 ALT 12 Alkaline Phosphatase 86 Total Creatine Kinase 38 Total Protein 7.1 Albumin 3.7 Lipase 22 Urine Color Urine Appearance Urine pH Ur Specific [place] Urine Protein Urine Glucose (UA) Urine Ketones Urine Blood Urine Nitrite Ur Leukocyte Esterase Urine RBC Urine WBC Ur Squamous Epith Cells Urine Bacteria Hyaline Casts Influenza Type A (PCR) NEGATIVE Influenza Type B (PCR) NEGATIVE RSV RNA Qual (PCR) NEGATIVE SARS-CoV-2 RNA (RT-PCR) NEGATIVE 12/04/24 12/04/24 14:17 16:37 MCV MCH MCHC RDW Plt Count MPV Immature Gran % (Auto) Neut % (Auto) Lymph % (Auto) [place] % (Auto) Eos % (Auto) Baso % (Auto) Lymph # (Auto) [place] # (Auto) Eos # (Auto) Baso # (Auto) Abs Immat Gran (auto) Absolute Neuts (auto) Absolute Nucleated RBC Nucleated RBC % (auto) Smear Tech's Comments Anion Gap Estim Creat Clear Calc Estimated GFR Random Glucose Lactic Acid Lactic Acid F/U @ 2Hr 1.9 Calcium Magnesium Total Bilirubin Direct Bilirubin AST ALT Alkaline Phosphatase Total Creatine Kinase Total Protein Albumin Lipase Urine Color Yellow Urine Appearance Clear Urine pH 5.0 Ur Specific [place] 1.020 Urine Protein Negative Urine Glucose (UA) Negative Urine Ketones Negative Urine Blood Negative Urine Nitrite Negative Ur Leukocyte Esterase Trace H Urine RBC 0-2 Urine WBC 0-5 Ur Squamous Epith Cells 0-2 Urine Bacteria None Seen Hyaline Casts 0-2 Influenza Type A (PCR) Influenza Type B (PCR) RSV RNA Qual (PCR) SARS-CoV-2 RNA (RT-PCR) Assessment and Plan (1) Bradycardia: Status: Acute (2) Colitis: Status: Acute Plan Jhonny Shrestha is a 84 y/o man with a PMHx significant for bifascicular block and sinoatrial suhail dysfunction presents with: Bradycardia. Telemetry. Trops negative. Check TSH. Obtain echo. Cardiology consult. Colitis/diarrhea. Check GI panel. Received 4L NS/LR. Continue empiric IV antibiotic therapy with Flagyl and ceftriaxone. Acute on chronic renal disease due to above. Status post IV fluids. Continue to monitor renal function. Type 2 diabetes mellitus. BG checks before meal and bedtime. Continue glipizide. Insulin sliding scale. Diabetic diet COPD. No acute symptoms. Continue home inhalers (Breo or alternative). Essential hypertension. Hold lisinopril. BP is soft. Essential tremors. Not longer taking propranolol due history of sinoatrial suhail dysfunction. Old CVA/PAD. Continue statin and aspirin. Hyperlipidemia. Continue statin. GERD. Continue PPI. Code status: Full DVT prophylaxis: Heparin Patient will need hospitalization for at least 2 midnights for bradycardia treatment and management with continuous cardiac monitoring, echocardiogram and evaluation by cardiology service. Quality Stroke Does the patient have a stroke diagnosis?: No VTE Prior VTE?: No VTE Risk Level:: Medical - moderate - high VTE Device Contraindication: Treatment Not Indicated VTE Drug Contraindication: N/A - Med Ordered
[2024-12-05 02:53] VITALS: BP 114/55; PULSE 46; RESP 14; TEMP 36.9; O2SAT 94
[2024-12-05 03:23] LABS: Thyroid Stimulating Hormone 0.59 uIU/mL (0.32-4.0)
[2024-12-05] MEDS: metroNIDAZOLE/NS 500 MG/100 ML PIGGYBACK 100 MG IV ×3 (04:51→22:11)
[2024-12-05 06:32] VITALS: BP 114/47; PULSE 54; RESP 14; TEMP 36.9; O2SAT 97
[2024-12-05 07:07] LABS: Glucose, Whole Blood 89 mg/dL (60-115)
[2024-12-05] MEDS: 0.9 % Sodium Chloride Flush 3 ML SYRINGE IVFLUSH ×3 (07:38→22:12)
[2024-12-05 09:50] LABS: MANUAL DIFF FLAG NO
[2024-12-05 09:51] LABS: Hematocrit 35.9 % (42.0-52.0); Hemoglobin 11.8 g/dl (14.0-18.0); Imm Gran Abs Auto 0.06 X10*3/uL (0.00-0.03); Imm Gran Pct Auto 0.7 % (0.0-0.4); Lymphocytes Absolute Auto 2.0 X10*3/uL (1.2-4.9); Mean Corpuscular HGB Conc 32.9 g/dl (31.0-36.0); Mean Corpuscular Hemoglobin 27.1 pg (27.0-33.0); Mean Corpuscular Volume 82.3 fL (80.0-98.0); NRBC Abs Auto 0.000 X10*3/uL (0.0-0.012); NRBC Pct Auto 0.0 /100WBC (0.0-0.2); Platelet Count 175 X10*3/uL (160-400); Red Blood Count 4.36 X10*6/uL (4.60-5.80); White Blood Count 8.7 X10*3/uL (4.8-10.8)
[2024-12-05 10:20] LABS: Alanine Aminotransferase < 6 U/L (0-40); Albumin Level 3.1 g/dL (3.5-5.0); Alkaline Phosphatase 72 U/L (39-117); Anion Gap 12 (12-20); Aspartate Amino Transferase 18 U/L (5-37); Blood Urea Nitrogen 46 mg/dL (9-16); Calcium 8.2 mg/dL (8.4-10.2); Carbon Dioxide 18 mmol/L (22-29); Chloride 115 mmol/L (96-108); Creatinine Clr Calc Pharmacy 41.2; Estimated Glomerular Filt Rate 45; Magnesium 2.3 mg/dL (1.6-2.6); Potassium 4.4 mmol/L (3.3-5.1); Sodium 141 mmol/L (135-145); Total Protein 5.7 g/dL (6.5-8.0)
--- NOTE | 2024-12-05 12:12 | P.PNIM_ITS ---
Subjective Subjective Date of Service: 12/05/24 Interval History: f/u on diarrhea, weakness and diarrhea diarrhea is better, no abd pain, bradycardia no pause Physical Exam 2 Vital Signs: Vital Signs: Last Vital Signs Temp 98.4 F 12/05/24 06:32 Pulse 54 12/05/24 06:32 Resp 14 12/05/24 06:32 BP 114/47 L 12/05/24 06:32 Pulse Ox 97 12/05/24 06:32 O2 Del Method Room Air 12/05/24 06:32 BMI result Body Mass Index 35.2 General: AO X 3, no acute distress Resp: CTA bilateral CVS: S1,S2,RRR GI: +BS, NT, no distention Skin: No rash Neuro: motor grossly intact Psych: appropriate affect Objective Data Active Medications Acetaminophen (Acetaminophen 325 Mg Tablet) 975 mg PO Q6H PRN PRN Reason: Pain, Mild 1-3,fever,headache Calcium Carbonate (Calcium Carbonate 750 Mg Tab.Chew) 750 mg PO Q4H PRN PRN Reason: Heartburn Ceftriaxone Sodium (Ceftriaxone Sodium 1 Gm Vial) 1 gm IVPUSH Q24H [facility] Dextrose (Dextrose 50 % 25 Gm/50 Ml Syringe) 25 gm IVPUSH Q15M PRN; Protocol PRN Reason: per Hypoglycemia Standing Ord. Glucose (Glucose Gel 15 Gm Gel..Gram.) 15 gm PO Q15M PRN; Protocol PRN Reason: per Hypoglycemia Standing Ord. Heparin Sodium (Porcine) (Heparin Sodium,Porcine 5,000 Unit/Ml Vial) 5,000 unit SUBCUT Q12H [facility] Last Admin: 12/05/24 10:20 Dose: 5,000 unit Documented By: KRYSTYNA Metronidazole (Flagyl) 500 mg in 100 mls @ 100 mls/hr IV Q8H [facility] Last Infusion: 12/05/24 06:40 Dose: Infused Documented By: ELIO Insulin Human Lispro (Insulin Lispro 100 Unit/Ml 3 Ml Vial) 0 unit SUBCUT QIDACHS [facility]; Protocol Last Admin: 12/05/24 07:26 Dose: Not Given Documented By: KRYSTYNA Non-Admin Reason: No Insulin Coverage Magnesium Hydroxide (Milk Of Magnesia 30 Ml Oral.Susp) 30 ml PO DAILY PRN PRN Reason: Constipation Melatonin (Melatonin 3 Mg Tablet) 6 mg PO BEDTIME PRN PRN Reason: Insomnia Sodium Chloride (0.9 % Sodium Chloride Flush 3 Ml Syringe) 3 ml IVFLUSH QSHIFT [facility] Last Admin: 12/05/24 07:38 Dose: 3 ml Documented By: KRYSTYNA Labs 12/05/24 09:43 12/05/24 09:43 Labs: Laboratory Results - last 24 hr 12/04/24 12/04/24 12/04/24 12:23 12:44 13:21 MCV 80.2 MCH 26.6 L MCHC 33.2 RDW 14.6 Plt Count TNP MPV TNP Immature Gran % (Auto) 0.8 H Neut % (Auto) 68.6 Lymph % (Auto) 19.0 L Rhea % (Auto) 5.4 Eos % (Auto) 5.8 H Baso % (Auto) 0.4 Lymph # (Auto) 1.9 Rhea # (Auto) 0.6 Eos # (Auto) 0.6 H Baso # (Auto) 0.0 Abs Immat Gran (auto) 0.08 H Absolute Neuts (auto) 7.0 Absolute Nucleated RBC 0.000 Nucleated RBC % (auto) 0.0 Smear Tech's Comments VERIFIED Anion Gap 16 Estim Creat Clear Calc 30.2 Estimated GFR 31 POC Glucose Random Glucose 203 H Lactic Acid 2.2 H* Lactic Acid F/U @ 2Hr Calcium 8.8 Magnesium 2.7 H Total Bilirubin 0.2 Direct Bilirubin < 0.2 AST 37 ALT 12 Alkaline Phosphatase 86 Total Creatine Kinase 38 Total Protein 7.1 Albumin 3.7 Lipase 22 TSH 0.59 Urine Color Urine Appearance Urine pH Ur Specific [place] Urine Protein Urine Glucose (UA) Urine Ketones Urine Blood Urine Nitrite Ur Leukocyte Esterase Urine RBC Urine WBC Ur Squamous Epith Cells Urine Bacteria Hyaline Casts Influenza Type A (PCR) NEGATIVE Influenza Type B (PCR) NEGATIVE RSV RNA Qual (PCR) NEGATIVE SARS-CoV-2 RNA (RT-PCR) NEGATIVE 12/04/24 12/04/24 12/05/24 14:17 16:37 07:03 MCV MCH MCHC RDW Plt Count MPV Immature Gran % (Auto) Neut % (Auto) Lymph % (Auto) Rhea % (Auto) Eos % (Auto) Baso % (Auto) Lymph # (Auto) Rhea # (Auto) Eos # (Auto) Baso # (Auto) Abs Immat Gran (auto) Absolute Neuts (auto) Absolute Nucleated RBC Nucleated RBC % (auto) Smear Tech's Comments Anion Gap Estim Creat Clear Calc Estimated GFR POC Glucose 89 Random Glucose Lactic Acid Lactic Acid F/U @ 2Hr 1.9 Calcium Magnesium Total Bilirubin Direct Bilirubin AST ALT Alkaline Phosphatase Total Creatine Kinase Total Protein Albumin Lipase TSH Urine Color Yellow Urine Appearance Clear Urine pH 5.0 Ur Specific [place] 1.020 Urine Protein Negative Urine Glucose (UA) Negative Urine Ketones Negative Urine Blood Negative Urine Nitrite Negative Ur Leukocyte Esterase Trace H Urine RBC 0-2 Urine WBC 0-5 Ur Squamous Epith Cells 0-2 Urine Bacteria None Seen Hyaline Casts 0-2 Influenza Type A (PCR) Influenza Type B (PCR) RSV RNA Qual (PCR) SARS-CoV-2 RNA (RT-PCR) 12/05/24 09:43 MCV 82.3 MCH 27.1 MCHC 32.9 RDW 14.6 Plt Count 175 MPV 10.9 Immature Gran % (Auto) 0.7 H Neut % (Auto) 60.3 Lymph % (Auto) 22.5 Rhea % (Auto) 6.3 Eos % (Auto) 9.6 H Baso % (Auto) 0.6 Lymph # (Auto) 2.0 Rhea # (Auto) 0.6 Eos # (Auto) 0.8 H Baso # (Auto) 0.1 Abs Immat Gran (auto) 0.06 H Absolute Neuts (auto) 5.3 Absolute Nucleated RBC 0.000 Nucleated RBC % (auto) 0.0 Smear Tech's Comments Anion Gap 12 Estim Creat Clear Calc 41.2 Estimated GFR 45 POC Glucose Random Glucose 115 Lactic Acid Lactic Acid F/U @ 2Hr Calcium 8.2 L D Magnesium 2.3 Total Bilirubin 0.2 Direct Bilirubin AST 18 ALT < 6 Alkaline Phosphatase 72 Total Creatine Kinase Total Protein 5.7 L Albumin 3.1 L Lipase TSH Urine Color Urine Appearance Urine pH Ur Specific [place] Urine Protein Urine Glucose (UA) Urine Ketones Urine Blood Urine Nitrite Ur Leukocyte Esterase Urine RBC Urine WBC Ur Squamous Epith Cells Urine Bacteria Hyaline Casts Influenza Type A (PCR) Influenza Type B (PCR) RSV RNA Qual (PCR) SARS-CoV-2 RNA (RT-PCR) Assessment and Plan (1) Bradycardia: Status: Acute (2) Colitis: Status: Acute (3) KARLA (acute kidney injury): Status: Acute (4) CKD (chronic kidney disease) stage 3, GFR 30-59 ml/min: Status: Acute Plan 84 y/o man with a PMHx significant for bifascicular block and sinoatrial suhail dysfunction presents with: Bradycardia, HR is better, in 50s, assymptomatic and no pause cardiology advises monitoring, ambulating Colitis/diarrhea. Diarrhea is better, no abd pain gi panel pending continue ceftriaxone and flagyl Acute on chronic renal disease due to above. Status post IV fluids. improved, monitor Type 2 diabetes mellitus. BG checks before meal and bedtime. Continue glipizide. Insulin sliding scale. Diabetic diet COPD. No acute symptoms. Continue home inhalers (Breo or alternative). Essential hypertension. Hold lisinopril/HCTZ. BP on lower side Essential tremors. Not longer taking propranolol due history of sinoatrial suhail dysfunction. Old CVA/PAD. Continue statin and aspirin. Hyperlipidemia. Continue statin. GERD. Continue PPI. Code status: Full DVT prophylaxis: Heparin Quality Stroke Does the patient have a stroke diagnosis?: No VTE Prior VTE?: No VTE Risk Level:: Medical - moderate - high VTE Device Contraindication: Treatment Not Indicated VTE Drug Contraindication: N/A - Med Ordered
[2024-12-05 12:38] VITALS: BP 132/55; PULSE 60; RESP 19; TEMP 36.7; O2SAT 97
[2024-12-05 12:42] LABS: Glucose, Whole Blood 104 mg/dL (60-115)
--- NOTE | 2024-12-05 12:49 | P.CONCA_ITS ---
History of Present Illness History of Present Illness Date of Service: 12/05/24 Requesting physician: Peewee Gallegos Chief complaint: bradycardia Narrative: [age] year gentleman presenting with diarrhea and weakness. He was noticed to be bradycardic in the emergency department. 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 He is denying any dizziness or lightheadedness. No syncope in the past. He had a Holter monitor in March 2024 when the rhythm was mostly atrial fibrillation with 38% of time heart rate below 60 beats per minute. He is saying that he has been told that his heart has been slow in the past. His primary care physician also gave him some medication for tremors and his bradycardia worsened and apparently was taken off of the medication. He is unable to remember what the name of the medication was. 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 Ornelas. Currently taking baby aspirin and unclear why he is not on anticoagulation jail given that he had documented atrial fibrillation on Holter monitor in the past. [facility] Past Medical History Medical History Cough Hypersomnia Stroke COPD exacerbation COPD (chronic obstructive pulmonary disease) Allergic rhinitis Family History Family History Mother No problems noted. Father Heart disease Surgical History Surgical History Hx of cataract surgery (~09/2023) S/P tonsillectomy and adenoidectomy Hx of cholecystectomy History of appendectomy Social History Social History Alcohol intake: former Patient Tobacco Use Status: Former Tobacco user Years Smoked: 40 +/- Smoked in Last 30 Days: No Use of substances other than those prescribed or required for medical reasons: No Advance Directives: No Advance Directives Information Provided: Yes Nutrition Risks: No Nutritional Risk Meds Allergies Allergy/AdvReac Type Severity Reaction Status Date / Time No Known Allergies (No Known Allergy Verified 12/04/24 11:43 Allergies*) Active Medications: Current Medications Acetaminophen (Acetaminophen 325 Mg Tablet) 975 mg PO Q6H PRN PRN Reason: Pain, Mild 1-3,fever,headache Aspirin (Aspirin Enteric Coated 81 Mg Tablet.Dr) 81 mg PO DAILY [facility] Calcium Carbonate (Calcium Carbonate 750 Mg Tab.Chew) 750 mg PO Q4H PRN PRN Reason: Heartburn Ceftriaxone Sodium (Ceftriaxone Sodium 1 Gm Vial) 1 gm IVPUSH Q24H [facility] Dextrose (Dextrose 50 % 25 Gm/50 Ml Syringe) 25 gm IVPUSH Q15M PRN; Protocol PRN Reason: per Hypoglycemia Standing Ord. Finasteride (Finasteride 5 Mg Tablet) 5 mg PO DAILY [facility] Fluticasone/Vilanterol (Fluticasone/Vilanterol 100/25 Blst.W.Dev) 1 puff INHALE DAILY [facility] Glipizide (Glipizide Xl 5 Mg Tab.Er.24) 5 mg PO DAILY [facility] Glucose (Glucose Gel 15 Gm Gel..Gram.) 15 gm PO Q15M PRN; Protocol PRN Reason: per Hypoglycemia Standing Ord. Heparin Sodium (Porcine) (Heparin Sodium,Porcine 5,000 Unit/Ml Vial) 5,000 unit SUBCUT Q12H [facility] Last Admin: 12/05/24 10:20 Dose: 5,000 unit Metronidazole (Flagyl) 500 mg in 100 mls @ 100 mls/hr IV Q8H [facility] Last Infusion: 12/05/24 06:40 Dose: Infused Insulin Human Lispro (Insulin Lispro 100 Unit/Ml 3 Ml Vial) 0 unit SUBCUT QIDACHS [facility]; Protocol Last Admin: 12/05/24 12:40 Dose: Not Given Loratadine (Loratadine 10 Mg Tablet) 10 mg PO BEDTIME [facility] Magnesium Hydroxide (Milk Of Magnesia 30 Ml Oral.Susp) 30 ml PO DAILY PRN PRN Reason: Constipation Melatonin (Melatonin 3 Mg Tablet) 6 mg PO BEDTIME PRN PRN Reason: Insomnia Non-Formulary Medication (Calcium Carbonate [Calcium 600]) 600 mg PO DAILY [facility] Non-Formulary Medication (Pantoprazole) 40 mg PO DAILY PRN PRN Reason: Acid Reflux Non-Formulary Medication (Simvastatin) 40 mg PO BEDTIME [facility] Sodium Chloride (0.9 % Sodium Chloride Flush 3 Ml Syringe) 3 ml IVFLUSH QSHIFT [facility] Last Admin: 12/05/24 07:38 Dose: 3 ml Vitamin D (Cholecalciferol (Vitamin D3) 25 Mcg Tablet) 50 mcg PO DAILY [facility] Home Medications ?Medication ?Instructions ?Recorded ?Confirmed ?Last Taken ?Type simvastatin 40 mg tablet 40 mg PO BEDTIME 03/13/20 Unknown History cetirizine 10 mg tablet 10 mg PO BEDTIME 07/11/20 Unknown History glipizide 5 mg tablet, extended 5 mg PO DAILY 10/08/22 12/05/24 12/04/24 History release 24 hr lisinopril 10 1 tab PO DAILY 10/08/2211/19 Unknown History mg-hydrochlorothiazide 12.5 mg tablet pantoprazole 40 mg tablet,delayed 40 mg PO DAILY PRN A adamaris Reflux 05/06/23 12/05/24 Unknown History release loperamide 2 mg capsule 2 mg PO DAILY PRN Diarrhea 1 05/08/23 12/05/24 Unknown History calcium carbonate (Calcium 600) 600 mg PO DAILY 12/05/24 Unknown History cholecalciferol (vitamin D3) 50 50 mcg PO DAILY 12/05/24 Unknown History mcg (2,000 unit) capsule aspirin 81 mg tablet,delayed 81 mg PO DAILY 11/30/24 0 12/05/24 Unknown History release Physical Exam 2 Vital Signs: Vital Signs: Last Vital Signs Temp 98.0 F 12/05/24 12:38 Pulse 60 12/05/24 12:38 Resp 19 12/05/24 12:38 BP 132/55 L 12/05/24 12:38 Pulse Ox 97 12/05/24 12:38 O2 Del Method Room Air 12/05/24 12:38 BMI result Body Mass Index 35.2 GENERAL APPEARANCE: in no acute distress, pleasant. NECK: no carotid bruit, no jugular venous distention. SKIN: no suspicious lesions, warm and dry. HEART: no murmurs, irregular rate and rhythm. LUNGS: clear to auscultation bilaterally. ABDOMEN: soft, nontender. EXTREMITIES: no edema. PERIPHERAL PULSES: equal. NEUROLOGIC: No gross deficits, AAO X 3 Objective Labs and Meds 12/05/24 09:43 12/05/24 09:43 Lab results: Laboratory Results - last 24 hr 12/04/24 12/04/24 12/04/24 12:23 12:44 13:21 WBC 10.2 RBC Hgb Hct MCV MCH MCHC RDW Plt Count TNP MPV TNP Immature Gran % (Auto) 0.8 H Neut % (Auto) 68.6 Lymph % (Auto) 19.0 L [place] % (Auto) 5.4 Eos % (Auto) 5.8 H Baso % (Auto) 0.4 Lymph # (Auto) 1.9 [place] # (Auto) 0.6 Eos # (Auto) 0.6 H Baso # (Auto) 0.0 Abs Immat Gran (auto) 0.08 H Absolute Neuts (auto) 7.0 Absolute Nucleated RBC 0.000 Nucleated RBC % (auto) 0.0 Smear Tech's Comments VERIFIED Sodium Potassium Chloride Carbon Dioxide Anion Gap BUN Creatinine Estim Creat Clear Calc Estimated GFR POC Glucose Random Glucose Lactic Acid 2.2 H* Lactic Acid F/U @ 2Hr Calcium Magnesium Total Bilirubin AST ALT Alkaline Phosphatase Troponin I High Sens 7.3 Total Protein Albumin TSH 0.59 Urine Color Urine Appearance Urine pH Ur Specific [place] Urine Protein Urine Glucose (UA) Urine Ketones Urine Blood Urine Nitrite Ur Leukocyte Esterase Urine RBC Urine WBC Ur Squamous Epith Cells Urine Bacteria Hyaline Casts Influenza Type A (PCR) NEGATIVE Influenza Type B (PCR) NEGATIVE RSV RNA Qual (PCR) NEGATIVE SARS-CoV-2 RNA (RT-PCR) NEGATIVE 12/04/24 12/04/24 12/05/24 14:17 16:37 00:57 WBC RBC Hgb Hct MCV MCH MCHC RDW Plt Count MPV Immature Gran % (Auto) Neut % (Auto) Lymph % (Auto) [place] % (Auto) Eos % (Auto) Baso % (Auto) Lymph # (Auto) [place] # (Auto) Eos # (Auto) Baso # (Auto) Abs Immat Gran (auto) Absolute Neuts (auto) Absolute Nucleated RBC Nucleated RBC % (auto) Smear Tech's Comments Sodium Potassium Chloride Carbon Dioxide Anion Gap BUN Creatinine Estim Creat Clear Calc Estimated GFR POC Glucose Random Glucose Lactic Acid Lactic Acid F/U @ 2Hr 1.9 Calcium Magnesium Total Bilirubin AST ALT Alkaline Phosphatase Troponin I High Sens 9.6 Total Protein Albumin TSH Urine Color Yellow Urine Appearance Clear Urine pH 5.0 Ur Specific [place] 1.020 Urine Protein Negative Urine Glucose (UA) Negative Urine Ketones Negative Urine Blood Negative Urine Nitrite Negative Ur Leukocyte Esterase Trace H Urine RBC 0-2 Urine WBC 0-5 Ur Squamous Epith Cells 0-2 Urine Bacteria None Seen Hyaline Casts 0-2 Influenza Type A (PCR) Influenza Type B (PCR) RSV RNA Qual (PCR) SARS-CoV-2 RNA (RT-PCR) 12/05/24 12/05/24 12/05/24 07:03 09:43 12:35 WBC 8.7 RBC 4.36 L Hgb 11.8 L Hct 35.9 L MCV 82.3 MCH 27.1 MCHC 32.9 RDW 14.6 Plt Count 175 MPV 10.9 Immature Gran % (Auto) 0.7 H Neut % (Auto) 60.3 Lymph % (Auto) 22.5 [place] % (Auto) 6.3 Eos % (Auto) 9.6 H Baso % (Auto) 0.6 Lymph # (Auto) 2.0 [place] # (Auto) 0.6 Eos # (Auto) 0.8 H Baso # (Auto) 0.1 Abs Immat Gran (auto) 0.06 H Absolute Neuts (auto) 5.3 Absolute Nucleated RBC 0.000 Nucleated RBC % (auto) 0.0 Smear Tech's Comments Sodium 141 Potassium 4.4 Chloride 115 H Carbon Dioxide 18 L Anion Gap 12 BUN 46 H Creatinine 1.49 H Estim Creat Clear Calc 41.2 Estimated GFR 45 POC Glucose 89 104 Random Glucose 115 Lactic Acid Lactic Acid F/U @ 2Hr Calcium 8.2 L D Magnesium 2.3 Total Bilirubin 0.2 AST 18 ALT < 6 Alkaline Phosphatase 72 Troponin I High Sens Total Protein 5.7 L Albumin 3.1 L TSH Urine Color Urine Appearance Urine pH Ur Specific [place] Urine Protein Urine Glucose (UA) Urine Ketones Urine Blood Urine Nitrite Ur Leukocyte Esterase Urine RBC Urine WBC Ur Squamous Epith Cells Urine Bacteria Hyaline Casts Influenza Type A (PCR) Influenza Type B (PCR) RSV RNA Qual (PCR) SARS-CoV-2 RNA (RT-PCR) Assessment and Plan (1) Sinoatrial node dysfunction: Status: Acute (2) Bifascicular block: Status: Acute (3) Bradycardia: Status: Acute Plan Pleasant 84 year gentleman who is here for diarrhea and diverticulitis. He has noticed to be bradycardic on telemetry and we have been asked to assess him. He has no symptoms currently. Overall his heart rates are in 50s. Once improving he should be ambulated in the hallways to see his heart rate response to exercise. He previously had Holter monitor in March 2024 showing predominantly atrial fibrillation and bradycardia with heart rate 38% of time below 60. Currently not on any rate-controlling medications. I think we monitor him closely and ambulate him once he is feeling better. If any obvious episode of symptomatic bradycardia or advanced heart block noted on telemetry then we can discuss about pacemaker placement. Currently no indication for pacemaker clear. Thank you for allowing me to participate in the care of your patient. Please feel free to contact me if you have any questions. Procedures Date of Service Date of Service: 12/05/24
--- NOTE | 2024-12-05 13:33 | MHC.CM.PN ---
CM ATTEMPTED TO MEET WITH PT WHO WAS MEETING WITH MD LAMBERT TO REVISIT
--- NOTE | 2024-12-05 17:00 | PHA.MEDREC ---
Pharmacy Consult ? Medication Reconciliation Pharmacy has completed the medication reconciliation.Med rec complete, spoke with patient and compared with pharmacy claim history
[2024-12-05 17:50] VITALS: BMI 25.7
[2024-12-05 18:27] VITALS: BP 156/84; PULSE 59; RESP 16; TEMP 36.6; O2SAT 96
[2024-12-05 18:27] LABS: Glucose, Whole Blood 155 mg/dL (60-115)
[2024-12-05 19:57] VITALS: BP 149/71; PULSE 73; RESP 18; TEMP 36.4; O2SAT 98
[2024-12-05 20:40] LABS: Glucose, Whole Blood 117 mg/dL (60-115)
[2024-12-06] VITALS: BP 128/58; PULSE 71; RESP 18; TEMP 36.3; O2SAT 97
[2024-12-06 03:13] VITALS: BP 132/61; PULSE 71; RESP 18; TEMP 36.8; O2SAT 96
[2024-12-06] MEDS: metroNIDAZOLE/NS 500 MG/100 ML PIGGYBACK 100 MG IV ×2 (05:14→12:49)
--- NOTE | 2024-12-06 07:00 | CA_ITS ---
Transthoracic Echocardiogram Patient (Last, First, Middle): Jhonny Shrestha G Gender: Male Date of : 1940 Age: 84 Procedure Date: 12/06/2024 Procedure Type: Transthoracic Echocardiogram [place] [facility] [place] Height: 170.18 cm Weight: 74.39 kg BSA: 1.86 m2 Heart Rate: 53 bpm BP: 132 / 61 mmHg Fiscal Agent: SB Referring MD: Omayra Cartagena MD Lithographing Machine Operator: Jorge Ornelas MD Symptoms: Bradycardia Study Quality: Adequate w contrast ECG Rhythm: Bradycardia Conclusions: - 1. Normal LV ejection fraction of 65-70% 2. Normal cardiac valvular Dopplers 3. Normal RV systolic pressure 4. No gross pericardial effusion Findings Procedure Information Contrast agent, definity, is being given per protocol without apparent complications. Left Ventricle Normal left ventricular size, thickness, and systolic function. The visually estimated ejection fraction is between 65-70%. Spectral Doppler is indicative of an impaired relaxation filling pattern. E/E prime ratio is between 8 and 15 consistent with indeterminate filling pressures. Right Ventricle Mildly increased right ventricular cavity size. There is normal right ventricular systolic function. Atria The left atrium is normal in size. Interatrial shunt cannot be excluded. The right atrium is normal in size. Aortic Valve There is mild calcification of the aortic valve. There is no aortic valve stenosis. There is no aortic valve regurgitation. Mitral Valve There is mild anterior and posterior mitral leaflet thickening. There is trace mitral valve regurgitation. There is no mitral valve stenosis. Pulmonic Valve The pulmonic valve was not well visualized. Tricuspid Valve Normal tricuspid valve structure. There is trace tricuspid valve regurgitation. The right ventricular systolic pressure is normal. The right ventricular systolic pressure is 27 mmHg. Normal right atrial pressure. There is no evidence of pulmonary hypertension. Great Vessels All visible segments of the aorta are normal in size. The pulmonary artery was not well visualized. There is no dilatation of the ascending aorta measuring 3.40 cm. Venous The inferior vena cava is normal in size and collapses greater than 50% with inspiration. Pericardium/Pleural There is no evidence of pericardial effusion. Prior Study Comparison No change compared to prior study dated: 01/16/2023. Measurements 2D Linear Measurements IVSd: 0.84 0.6-0.9/0.6-1.0 cm LVIDd: 4.67 3.9-5.3/4.2-5.9 cm LVIDd Index: 2.51 2.4-3.2/2.2-3.1 cm/m2 LVIDs: 3.25 2.0-3.6 cm LVPWd: 0.98 0.7-1.1 cm LA Diam: 3.50 2.7-3.8/3.0-4.0 cm LAIDs Index: 1.88 1.5-2.3 cm/m2 LV Mass: 178.77 67-162/88-224 g LV Mass Index: 96.11 43-95/49-115 g/m2 LVOT Diam: 2.30 3.0+(-)1.3 cm 2D Systolic Function EF 4C: 74.80 >55% EF 2C: 72.90 >55% EF BiP: 74.30 >55% Mitral Valve MV Pk E: 0.88 MV PK A: 1.00 MV Decel Time: 185.00 E/A: 0.90 E'Lateral: 8.05 E'Medial: 4.79 E/E' Med: 18.40 E/E' Lat: 11.00 PHT: 54.00 MVA PHT: 4.07 Decel [place]: 4.77 Aortic Valve AoV Pk Aki: 1.08 AoV Pk Grad: 5.00 BRENNA: 2.39 LVOT LVOT Pk Aki: 0.66 LVOT Mn Aki: 0.45 LVOT VTI: 0.17 LVOT Pk Grad: 2.00 LVOT Mn Grad: 1.00 LVOT Diam: 2.30 LVOT Area: 4.15 Diastolic Function MV Pk E: 0.88 MV Pk A: 1.00 E/A: 0.90 E'Medial: 4.79 E/E' Med: 18.40 E' Laterial: 8.05 E/E' Lat: 11.00 Right Ventricle TAPSE (mm): 24.40 TVS' Aki: 14.80 Tricuspid Valve TR Pk Aki: 2.46 TR Pk Grad: 24.00 RA Press: 3.00 RVSP: 27.00 Great Vessels Aorta Sinus of Valsalva: 3.40 2.0-3.5 cm Ao Asc: 3.40 2.1-3.4 cm Pulmonary Veins Pulm Vein S/D 0.90 Pulmonary Valve PV Pk Aki: 0.75 Peak PV Grad: 2.00 Updated in Other Vendor System with Status of Final Jorge Ornelas MD electronically signed on 12/06/2024 4:35:43 PM with status of Final
[2024-12-06 08:00] VITALS: BP 137/63; PULSE 63; RESP 18; TEMP 36.5; O2SAT 95
[2024-12-06 08:04] LABS: Glucose, Whole Blood 125 mg/dL (60-115)
[2024-12-06] MEDS: Calcium Oyster Shell Elemental 500 MG TABLET PO (08:22)
[2024-12-06] MEDS: 0.9 % Sodium Chloride Flush 3 ML SYRINGE IVFLUSH ×2 (08:22→16:24)
[2024-12-06] MEDS: Aspirin Enteric Coated 81 MG TABLET.DR PO (08:23)
[2024-12-06 08:24] LABS: Hematocrit 33.2 % (42.0-52.0); Hemoglobin 11.0 g/dl (14.0-18.0); Mean Corpuscular HGB Conc 33.1 g/dl (31.0-36.0); Mean Corpuscular Hemoglobin 26.8 pg (27.0-33.0); Mean Corpuscular Volume 81.0 fL (80.0-98.0); NRBC Abs Auto 0.000 X10*3/uL (0.0-0.012); NRBC Pct Auto 0.0 /100WBC (0.0-0.2); Platelet Count 177 X10*3/uL (160-400); Red Blood Count 4.10 X10*6/uL (4.60-5.80); White Blood Count 8.3 X10*3/uL (4.8-10.8)
[2024-12-06 08:45] LABS: Anion Gap 12 (12-20); Blood Urea Nitrogen 33 mg/dL (9-16); Calcium 8.4 mg/dL (8.4-10.2); Carbon Dioxide 21 mmol/L (22-29); Chloride 113 mmol/L (96-108); Creatinine Clr Calc Pharmacy 35.0; Estimated Glomerular Filt Rate 47; Potassium 4.0 mmol/L (3.3-5.1); Sodium 142 mmol/L (135-145)
--- NOTE | 2024-12-06 08:58 | MHC.CM.PN ---
CM ATTEMPTED TO MEET W/PT HOWEVER PT AT SINK SHAVING, CM TO REVISIT.
--- NOTE | 2024-12-06 11:16 | PM.PNCARD ---
Subjective Subjective Date of Service: 12/06/24 Principal diagnosis: Second-degree AV block, Mobitz type 1 Interval history: Jhonny was noted to have second-degree AV block, after reviewing the strip appears to be Mobitz type 1 second-degree AV block with some 2 is to 1 conduction as well. This is usually suggestive of AV suhail level conduction disorder. Patient has no symptoms related to it. No hypotension. Review of Systems Review of Systems Yes all other systems are reviewed and are negative Physical Exam Vital Signs: Last Vital Signs Temp 97.7 F 12/06/24 08:00 Pulse 63 12/06/24 08:00 Resp 18 12/06/24 08:00 BP 137/63 12/06/24 08:00 Pulse Ox 95 12/06/24 08:00 O2 Del Method Room Air 12/06/24 08:00 BMI result Body Mass Index 25.7 GENERAL APPEARANCE: in no acute distress, pleasant. NECK: no carotid bruit, no jugular venous distention. SKIN: no suspicious lesions, warm and dry. HEART: no murmurs, irregular rate and rhythm. LUNGS: clear to auscultation bilaterally. ABDOMEN: soft, nontender. EXTREMITIES: no edema. PERIPHERAL PULSES: equal. NEUROLOGIC: No gross deficits, AAO X 3 Objective Labs and Meds 12/06/24 07:26 12/06/24 07:26 Lab results: Laboratory Results - last 24 hr 12/05/24 12/05/24 12/05/24 12:35 18:20 20:35 WBC RBC Hgb Hct MCV MCH MCHC RDW Plt Count MPV Absolute Nucleated RBC Nucleated RBC % (auto) Sodium Potassium Chloride Carbon Dioxide Anion Gap BUN Creatinine Estim Creat Clear Calc Estimated GFR POC Glucose 104 155 H 117 H Random Glucose Calcium 12/06/24 12/06/24 07:26 07:58 WBC 8.3 RBC 4.10 L Hgb 11.0 L Hct 33.2 L MCV 81.0 MCH 26.8 L MCHC 33.1 RDW 14.5 Plt Count 177 MPV 11.1 Absolute Nucleated RBC 0.000 Nucleated RBC % (auto) 0.0 Sodium 142 Potassium 4.0 Chloride 113 H Carbon Dioxide 21 L Anion Gap 12 BUN 33 H Creatinine 1.44 H Estim Creat Clear Calc 35.0 Estimated GFR 47 POC Glucose 125 H Random Glucose 121 H Calcium 8.4 Progress Note: A&P Assessment and plan (1) 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: Status: Acute Assessment and Plan: Mobitz type 1 second-degree AV block in the setting of bifascicular block. Patient has no symptoms related to it. Usually Mobitz type 1 second-degree AV block is at AV suhail level. He has no symptoms and at this time no pacing therapy is indicated. Would avoid rate lowering medications. (2) Sinoatrial node dysfunction: Status: Acute Assessment and Plan: Known prior sinus bradycardia suggestive of sinoatrial suhail dysfunction. Again patient has no symptoms related to it. No pacing therapy required. Avoid rate lowering medications. Will sign off the case at this point time. Thank you for allowing me to partake in his care Time Spent With Patient Time: Total time managing care of this patient today ____ minutes. Progress Note: Quality Stroke Does the patient have a stroke diagnosis?: No Procedures Date of Service Date of Service: 12/06/24
[2024-12-06 11:48] LABS: Glucose, Whole Blood 129 mg/dL (60-115)
[2024-12-06 12:00] VITALS: BP 146/66; PULSE 63; RESP 18; TEMP 36.2; O2SAT 99
--- NOTE | 2024-12-06 15:50 | PM.DS ---
DS: Providers Provider Date of Service: 12/06/24 Date of admission: 12/05/24 00:51 Date of discharge: 12/06/24 Primary care physician: Monica Darby MD Consults: 12/05/24 02:39 Consult to Cardiology Routine Consulting Provider: [facility] Reason for consultation: Multiple events of bradycardia Has provider been notified: No DS: Diagnosis Discharge Diagnosis (1) 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: Status: Acute (2) Sinoatrial node dysfunction: Status: Acute DS: Summary Hospital Course Hospital Course: per H&P 84 years old man with past medical history significant for essential hypertension, stroke in 2019, COPD -not home O2, PAD, colitis/diarrhea, GERD, depression, type 2 diabetes mellitus, CKD stage 3B, essential tremors and hyperlipidemia presents to the emergency department complaining of generalized weakness. Patient is a very vague historian. He mentioned that he has been having nonbloody diarrhea. He is a endorses constant shortness on breath. Denied chest pain, headache, abdominal pain or dysuria. Surgical history significant for appendectomy and cholecystectomy. Patient does follows with imaging technologist, Dr. Ornelas, as he has bifascicular block and sinoatrial suhail dysfunction. He is a former tobacco smoker, smoked for over 40 years. In the ED, in the ED he was found to have stable vital signs. Last blood pressure is 120/54. He had several episodes of bradycardia (30-50). ECG showed junctional rhythm with a heart rate of 54 beats per minute. Blood workup showed no leukocytosis. Hemoglobin is 12.1 and platelets TNP. There is mild lactic acidosis, 2.2 the normalized 0.9. Urinalysis unremarkable. Troponin 7.3 and 9.6. Viral testing is negative for COVID-19, influenza and RSV. CXR is negative. Abdominal pelvis CT scan without contrast showed finding that may represent colitis/diverticulitis, there is moderate sigmoid diverticulitis and moderate-sized hiatal hernia. ED tx: Patient received a total of 4 L NS/LR. Flagyl 500 mg IV, ceftriaxone 1 g IV Plan: 84 y/o man with a PMHx significant for bifascicular block and sinoatrial suhail dysfunction presents with: Bradycardia, HR is better, in 50s, asymptomatic and no pause cardiology consulted tele 2nd degree AV block, given no sx and no hypotension, no intervention needed. HR improves with ambulation, Colitis/diarrhea. CT abdomen ~ diverticulitis/colitis, responding well to Abx , diarrhea improved upon dc, tolerating PO well. GI panel not needed given improvement with abx discharged on flagyl and Augmentin for total of 7 days Acute on chronic renal disease due to above. Status post IV fluids. improved, monitor, Cr at baseline upon discharge Type 2 diabetes mellitus. resume home meds COPD. No acute symptoms. Continue home inhalers (Breo or alternative). Essential hypertension. Hold lisinopril/HCTZ for few days after discharge as directed. Essential tremors. Not longer taking propranolol due history of sinoatrial suhail dysfunction. Old CVA/PAD. Continue statin and aspirin. Hyperlipidemia. Continue statin. GERD. Continue PPI. Time Attestation Discharge Coordination Time (in mins): 40 mins Quality: Safe Use of Opioids Does Pt have an Active Cancer Diagnosis on the Problem List?: No Quality: Stroke Does the patient have a stroke diagnosis?: No Physical Exam Vital Signs: Vital Signs: Last Vital Signs Temp 97.1 F 12/06/24 12:00 Pulse 63 12/06/24 12:00 Resp 18 12/06/24 12:00 BP 146/66 H 12/06/24 12:00 Pulse Ox 99 12/06/24 12:00 O2 Del Method Room Air 12/06/24 12:00 BMI result Body Mass Index 25.7 Constitutional - Awake and Alert, No apparent distress Heart - RRR, No murmurs Lungs - Normal lung expansion, Normal respiratory effort, No respiratory distress, CTA bilaterally Abdomen - NT / ND; +BS; No rebound or guarding Extremities - no calf tenderness bilaterally, no swelling Musculoskeletal - Normal inspection, normal ROM Skin - Warm/Dry Neurological - mildly somnolent. Oriented x3. Moving all extremities spontaneously. Normal speech. Psychological - Appropriate affect DS: Data Data Completed and Pending Labs on day of discharge: Laboratory Results - last 24 hr 12/05/24 12/05/24 12/06/24 18:20 20:35 07:26 WBC 8.3 RBC 4.10 L Hgb 11.0 L Hct 33.2 L MCV 81.0 MCH 26.8 L MCHC 33.1 RDW 14.5 Plt Count 177 MPV 11.1 Absolute Nucleated RBC 0.000 Nucleated RBC % (auto) 0.0 Sodium 142 Potassium 4.0 Chloride 113 H Carbon Dioxide 21 L Anion Gap 12 BUN 33 H Creatinine 1.44 H Estim Creat Clear Calc 35.0 Estimated GFR 47 POC Glucose 155 H 117 H Random Glucose 121 H Calcium 8.4 12/06/24 12/06/24 07:58 11:44 WBC RBC Hgb Hct MCV MCH MCHC RDW Plt Count MPV Absolute Nucleated RBC Nucleated RBC % (auto) Sodium Potassium Chloride Carbon Dioxide Anion Gap BUN Creatinine Estim Creat Clear Calc Estimated GFR POC Glucose 125 H 129 H Random Glucose Calcium Preliminary micro results at discharge 12/04/24 13:21 Blood Culture - Preliminary Blood - Venous No growth after 48 hours. 12/04/24 13:21 Blood Culture - Preliminary Blood - Venous No growth after 48 hours. Discharge Plan Discharge Anticipated Discharge Date/Time: 12/06/24 15:36 Patient Disposition: Home, Self-Care Discharge Diagnosis: diverticulitis/ colitis Referrals: Monica Darby MD [Primary Care Provider, Internal Medicine] - 1 Week Discharge Medications: New metronidazole 500 mg tablet 500 mg PO Q8H 5 Days Qty: 15 0RF amoxicillin-pot clavulanate 875-125 mg tablet 1 tab PO BID 5 Days Qty: 10 0RF Continued Breo Ellipta 100-25 mcg/dose blister with device 1 inh inhalation DAILY 90 Days Qty: 3 3RF finasteride 5 mg tablet 5 mg PO DAILY 90 Days Qty: 90 1RF simvastatin 40 mg tablet 40 mg PO BEDTIME cetirizine 10 mg tablet 10 mg PO BEDTIME glipizide 5 mg tablet extended release 24hr 5 mg PO DAILY calcium carbonate [Calcium 600] 600 mg calcium (1,500 mg) tablet 600 mg PO DAILY cholecalciferol (vitamin D3) 50 mcg (2,000 unit) capsule 50 mcg PO DAILY pantoprazole 40 mg tablet,delayed release (DR/EC) 40 mg PO DAILY PRN (Reason: Acid Reflux) loperamide 2 mg capsule 2 mg PO DAILY PRN (Reason: Diarrhea) aspirin 81 mg tablet,delayed release (DR/EC) 81 mg PO DAILY Held lisinopril-hydrochlorothiazide 10-12.5 mg tablet 1 tab PO DAILY Hold Instructions: Resume on 12/08/24. once PO intake is optimal, resume BP medication, closely monitor your BP while you are holding this medication, IF BP is trending high, you can resume it sooner Discharge Orders: Discharge Order (Routine); Ordered 12/06/24 Ordered By: Idalmis Sanches Activity on Discharge: As tolerated Stand Alone Forms: Patient Portal Discharge page Print Language: Lao Care Plan Goals: see below Health Concerns: see below Plan of Treatment: admitted with abd pain, non bloody diarrhea and weakness, found to have colitis/diverticulitis on ct abdomen treated with Abx with good response. discharged on PO Abx to complete the course. Assessment: tolerating PO and ambulating without difficulty upon discharge, diarrhea improving, plan is to complete Abx course and maitain good hydration with doft diet
--- NOTE | 2024-12-06 15:59 | PM.DS ---
DS: Providers Provider Date of Service: 12/06/24 Date of admission: 12/05/24 00:51 Date of discharge: 12/06/24 Primary care physician: Monica Darby MD Consults: 12/05/24 02:39 Consult to Cardiology Routine Consulting Provider: [facility] Reason for consultation: Multiple events of bradycardia Has provider been notified: No DS: Diagnosis Discharge Diagnosis (1) 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: Status: Acute (2) Sinoatrial node dysfunction: Status: Acute DS: Summary Hospital Course Hospital Course: per H&P 84 years old man with past medical history significant for essential hypertension, stroke in 2019, COPD -not home O2, PAD, colitis/diarrhea, GERD, depression, type 2 diabetes mellitus, CKD stage 3B, essential tremors and hyperlipidemia presents to the emergency department complaining of generalized weakness. Patient is a very vague historian. He mentioned that he has been having nonbloody diarrhea. He is a endorses constant shortness on breath. Denied chest pain, headache, abdominal pain or dysuria. Surgical history significant for appendectomy and cholecystectomy. Patient does follows with director construction services, Dr. Ornelas, as he has bifascicular block and sinoatrial suhail dysfunction. He is a former tobacco smoker, smoked for over 40 years. In the ED, in the ED he was found to have stable vital signs. Last blood pressure is 120/54. He had several episodes of bradycardia (30-50). ECG showed junctional rhythm with a heart rate of 54 beats per minute. Blood workup showed no leukocytosis. Hemoglobin is 12.1 and platelets TNP. There is mild lactic acidosis, 2.2 the normalized 0.9. Urinalysis unremarkable. Troponin 7.3 and 9.6. Viral testing is negative for COVID-19, influenza and RSV. CXR is negative. Abdominal pelvis CT scan without contrast showed finding that may represent colitis/diverticulitis, there is moderate sigmoid diverticulitis and moderate-sized hiatal hernia. ED tx: Patient received a total of 4 L NS/LR. Flagyl 500 mg IV, ceftriaxone 1 g IV Plan: 84 y/o man with a PMHx significant for bifascicular block and sinoatrial suhail dysfunction presents with: Bradycardia, HR is better, in 50s, asymptomatic and no pause cardiology consulted tele 2nd degree AV block, given no sx and no hypotension, no intervention needed. HR improves with ambulation, Colitis/diarrhea. CT abdomen ~ diverticulitis/colitis, responding well to Abx , diarrhea improved upon dc, tolerating PO well. GI panel not needed given improvement with abx discharged on flagyl and Augmentin for total of 7 days Acute on chronic renal disease due to above. Status post IV fluids. improved, monitor, Cr at baseline upon discharge Type 2 diabetes mellitus. resume home meds COPD. No acute symptoms. Continue home inhalers (Breo or alternative). Essential hypertension. Hold lisinopril/HCTZ for few days after discharge as directed. Essential tremors. Not longer taking propranolol due history of sinoatrial suhail dysfunction. Old CVA/PAD. Continue statin and aspirin. Hyperlipidemia. Continue statin. GERD. Continue PPI. Time Attestation Discharge Coordination Time (in mins): 40 mins Quality: Safe Use of Opioids Does Pt have an Active Cancer Diagnosis on the Problem List?: No Quality: Stroke Does the patient have a stroke diagnosis?: No Physical Exam Vital Signs: Vital Signs: Last Vital Signs Temp 97.1 F 12/06/24 12:00 Pulse 63 12/06/24 12:00 Resp 18 12/06/24 12:00 BP 146/66 H 12/06/24 12:00 Pulse Ox 99 12/06/24 12:00 O2 Del Method Room Air 12/06/24 12:00 BMI result Body Mass Index 25.7 DS: Data Data Completed and Pending Labs on day of discharge: Laboratory Results - last 24 hr 12/05/24 12/05/24 12/06/24 18:20 20:35 07:26 WBC 8.3 RBC 4.10 L Hgb 11.0 L Hct 33.2 L MCV 81.0 MCH 26.8 L MCHC 33.1 RDW 14.5 Plt Count 177 MPV 11.1 Absolute Nucleated RBC 0.000 Nucleated RBC % (auto) 0.0 Sodium 142 Potassium 4.0 Chloride 113 H Carbon Dioxide 21 L Anion Gap 12 BUN 33 H Creatinine 1.44 H Estim Creat Clear Calc 35.0 Estimated GFR 47 POC Glucose 155 H 117 H Random Glucose 121 H Calcium 8.4 12/06/24 12/06/24 07:58 11:44 WBC RBC Hgb Hct MCV MCH MCHC RDW Plt Count MPV Absolute Nucleated RBC Nucleated RBC % (auto) Sodium Potassium Chloride Carbon Dioxide Anion Gap BUN Creatinine Estim Creat Clear Calc Estimated GFR POC Glucose 125 H 129 H Random Glucose Calcium Preliminary micro results at discharge 12/04/24 13:21 Blood Culture - Preliminary Blood - Venous No growth after 48 hours. 12/04/24 13:21 Blood Culture - Preliminary Blood - Venous No growth after 48 hours. Discharge Plan Discharge Anticipated Discharge Date/Time: 12/06/24 15:36 Patient Disposition: Home, Self-Care Discharge Diagnosis: diverticulitis/ colitis Referrals: Monica Darby MD [Primary Care Provider, Internal Medicine] - 1 Week Discharge Medications: New metronidazole 500 mg tablet 500 mg PO Q8H 5 Days Qty: 15 0RF amoxicillin-pot clavulanate 875-125 mg tablet 1 tab PO BID 5 Days Qty: 10 0RF Continued Breo Ellipta 100-25 mcg/dose blister with device 1 inh inhalation DAILY 90 Days Qty: 3 3RF finasteride 5 mg tablet 5 mg PO DAILY 90 Days Qty: 90 1RF simvastatin 40 mg tablet 40 mg PO BEDTIME cetirizine 10 mg tablet 10 mg PO BEDTIME glipizide 5 mg tablet extended release 24hr 5 mg PO DAILY calcium carbonate [Calcium 600] 600 mg calcium (1,500 mg) tablet 600 mg PO DAILY cholecalciferol (vitamin D3) 50 mcg (2,000 unit) capsule 50 mcg PO DAILY pantoprazole 40 mg tablet,delayed release (DR/EC) 40 mg PO DAILY PRN (Reason: Acid Reflux) loperamide 2 mg capsule 2 mg PO DAILY PRN (Reason: Diarrhea) aspirin 81 mg tablet,delayed release (DR/EC) 81 mg PO DAILY Held lisinopril-hydrochlorothiazide 10-12.5 mg tablet 1 tab PO DAILY Hold Instructions: Resume on 12/08/24. once PO intake is optimal, resume BP medication, closely monitor your BP while you are holding this medication, IF BP is trending high, you can resume it sooner Discharge Orders: Discharge Order (Routine); Ordered 12/06/24 Ordered By: Idalmis Sanches Activity on Discharge: As tolerated Stand Alone Forms: Patient Portal Discharge page Print Language: Lithuanian Care Plan Goals: see below Health Concerns: see below Plan of Treatment: admitted with abd pain, non bloody diarrhea and weakness, found to have colitis/diverticulitis on ct abdomen treated with Abx with good response. discharged on PO Abx to complete the course. Assessment: tolerating PO and ambulating without difficulty upon discharge, diarrhea improving, plan is to complete Abx course and maitain good hydration with doft diet
[2024-12-06 16:00] VITALS: BP 152/67; PULSE 60; RESP 20; TEMP 36.5; O2SAT 98
[2024-12-06 16:02] LABS: Glucose, Whole Blood 180 mg/dL (60-115)
--- NOTE | 2024-12-06 16:07 | MHC.CM.PN ---
PT REPORTS HE LIVES WITH HIS AND IS INDEPENDENT WITH CARE HE HAS NO DME AND NO SERVICES COPY OF HCP REQUESTED, HE REPORTS HIS IS HIS AGENT PCP; ADRIEN ESPINO DELIVERED PT TO [facility] TODAY WITH NO SERVICES VIA PRIVATE TRANSPORT
== END 2024-12-06 16:53 | disposition home or self-care (01) | DRG 309 ==
LOC: HO.ED 20:37 → HO.EDOVER 12-05 00:51 → HO.IMC 12-05 16:50
PROVIDERS: Internal Medicine; Nurse Practitioner Family; Physician Assistant; Admitting Provider Internal Medicine; Emergency Provider Emergency Medicine; PCP Internal Medicine; Visit Provider Hospitalist
DX: I49.5 Sick sinus syndrome (principal); I45.2 Bifascicular block; N17.9 Acute kidney failure, unspecified; E11.22 Type 2 diabetes mellitus with diabetic chronic kidney disease; N18.32 Chronic kidney disease, stage 3b; I12.9 Hypertensive chronic kidney disease with stage 1 through stage 4 chronic kidney disease, or unspecified chronic kidney disease; K52.9 Noninfective gastroenteritis and colitis, unspecified; J44.9 Chronic obstructive pulmonary disease, unspecified; K57.30 Diverticulosis of large intestine without perforation or abscess without bleeding; K21.9 Gastro-esophageal reflux disease without esophagitis; Z20.822 Contact with and (suspected) exposure to COVID-19; Z86.73 Personal history of transient ischemic attack (TIA), and cerebral infarction without residual deficits; Z79.82 Long term (current) use of aspirin; Z79.84 Long term (current) use of oral hypoglycemic drugs; Z79.899 Other long term (current) drug therapy
CPT/HCPCS: 36415; 71045; 74176; 80048; 80053; 80076; 81001; 82550; 82947; 83605; 83690; 83735; 84443; 84484; 85025; 85027; 87040; 87637; 93005; 93306; 99285; J0696; J1644; J1836; J7120; Q9957

== ENCOUNTER → 2024-12-04 11:49 | Outpatient (BNV) | payer MEDICARE, SELFPAY | PROVIDERS: Admitting Provider Internal Medicine; Emergency Provider Emergency Medicine; PCP Internal Medicine; Visit Provider Internal Medicine Cardiovascular Disease | DX: I44.0 Atrioventricular block, first degree (principal); I49.1 Atrial premature depolarization; I45.2 Bifascicular block | CPT/HCPCS: 93010 ==

== ENCOUNTER → 2024-12-04 16:30 | Outpatient (BNV) | payer MEDICARE, SELFPAY | PROVIDERS: Emergency Provider Emergency Medicine; PCP Internal Medicine; Visit Provider Student in an Organized Health Care Education/Training Program | DX: K44.9 Diaphragmatic hernia without obstruction or gangrene (principal); K57.30 Diverticulosis of large intestine without perforation or abscess without bleeding; E87.21 Acute metabolic acidosis | CPT/HCPCS: 71045; 74176 ==

== ENCOUNTER 2024-12-05 00:51 | Outpatient (BNV) | payer MEDICARE, SELFPAY | END 2024-12-06 07:00 | PROVIDERS: Admitting Provider Internal Medicine; Emergency Provider Emergency Medicine; PCP Internal Medicine; Visit Provider Internal Medicine Cardiovascular Disease | DX: I35.8 Other nonrheumatic aortic valve disorders (principal); I34.89 Other nonrheumatic mitral valve disorders | CPT/HCPCS: 93306 ==

== ENCOUNTER → 2024-12-05 00:51 | Outpatient (BNV) | payer MEDICARE, SELFPAY | PROVIDERS: Admitting Provider Internal Medicine; Emergency Provider Emergency Medicine; PCP Internal Medicine; Visit Provider Internal Medicine Cardiovascular Disease | DX: I49.5 Sick sinus syndrome (principal); I45.2 Bifascicular block; R00.1 Bradycardia, unspecified | CPT/HCPCS: 93010; 99223 ==

== ENCOUNTER → 2024-12-05 00:51 | Outpatient (BNV) | payer MEDICARE, SELFPAY | PROVIDERS: Admitting Provider Internal Medicine; Emergency Provider Emergency Medicine; PCP Internal Medicine; Visit Provider Internal Medicine | DX: R00.1 Bradycardia, unspecified (principal); K52.9 Noninfective gastroenteritis and colitis, unspecified; N18.32 Chronic kidney disease, stage 3b; N17.9 Acute kidney failure, unspecified | CPT/HCPCS: 99223; 99499 ==

== ENCOUNTER 2024-12-10 08:57 | Outpatient (AMB) | payer MEDICARE, SELFPAY ==
--- OUTSIDE RECORDS SUMMARY | 2024-12-10 09:10 | XMS_ITS | Clinical Summary ---
[facility] Address [address] [place] [address] Care Team Providers Care Medical Office Technologist Name Role Phone Unavailable Primary Care [...]
--- OUTSIDE RECORDS SUMMARY | 2024-12-10 09:10 | XMS_ITS | Clinical Summary ---
Author Organization [facility] Facility Address [address] [place] [id number] Care Team Providers Care Flask Fitter Name Role Phone Monica Darby MD Primary Care Provider [phone] Allergies No known active allergies Medications Breo Ellipta 100-25 MCG/ACT aerosol powder TAKE 1 PUFF INHALED DAILY FOR COPD FOR 90 DAYS 3 Active glipiZIDE (GLUCOTROL XL) 5 MG 24 hr tablet Take 5 mg by mouth 1 (one) time each day 3 Active OneTouch Ultra test strip CHECKE SUGAR DAILY 3 Active Lancets (OneTouch Delica Plus [id number]) misc USE TO CHECK SUGARS DAILY 3 [...] patient's age to complete this topic Insurance [facility] Care Teams Flask Fitter Relationship Specialty Start Date End Date Monica Darby MD [address] [place] [address] PCP - General Internal Medicine 05/14/22
--- OUTSIDE RECORDS SUMMARY | 2024-12-10 09:11 | XMS_ITS | Patient Health Record ---
Author Organization [facility] Address [address] [place] [address] Care Team Providers Care Infrastructure Engineer Name Role Phone Puneetgary Monica Primary Care Provider Julio Cesar Green [phone] Allergies No Known Allergies Results Component Value Reference Range Notes Ferritin Reviewed date:08/21/2024 10:07:00 PM Interpretation: Performing Lab:[facility], [address] [place] [phone] Notes/Report: Ferritin 86 20-250 ng/mL Calprotectin, Fecal Reviewed date:09/05/2024 12:15:05 AM Interpretation: Performing Lab:[facility], [address] [place] [phone] Notes/Report: Calprotectin, Fecal 192 Reference Range: <50 [...] borderline values. THIS TEST WAS PERFORMED AT: [facility] [address] [place] [address] JOEL JUAREZ MD,PHD,TERESO GI PANEL Reviewed date:08/25/2024 07:32:48 AM Interpretation: Performing Lab:[facility], [address] [place] [phone] Notes/Report: Campylobacter Not Detected Not Detect. Plesiomonas [...] is performed by Multiplexed PCR, utilizing the [employer] Array. Complete Blood Count Auto Di ff Reviewed date:08/21/2024 10:05:57 PM Interpretation: Performing Lab:[facility], [address] [place] [phone] Notes/Report: White Blood Count 7.9 4.8-10.8 X10*3/uL [...] te Reviewed date:08/21/2024 10:05:25 PM Interpretation: Performing Lab:[address] [phone] Notes/Report: Erythrocyte Sedimentation Rate 34 0-15 MM/HR Patients with polycythemia and many hemoglobin abnormalities may have depressed sed rates whereas patients with anemia may have elevated sed rates. IRON PROFILE Reviewed date:08/21/2024 10:05:44 PM Interpretation: Performing Lab:[address] [phone] Notes/Report: Iron 33 45-160 mcg/dL Total Iron Binding Capacity 228 228-428 mcg/dL Percent Iron Saturation 14 15-50 % Unsaturated Iron Binding 195 C Reactive Protein Reviewed date:08/21/2024 10:05:37 PM Interpretation: Performing Lab:[facility], [address] [place] [phone] Notes/Report: C Reactive Protein 0.24 < or = 0.50 mg/dL Celiac Disease Panel Reviewed date:08/23/2024 10:54:56 PM Interpretation: Performing Lab:[facility], [address] [place] [phone] Notes/Report: Immunoglobulin A 195 70-320 mg/dL THIS TEST WAS PERFORMED AT: [facility] [address] [place] [phone] JES MCLAUGHLIN MD Transglutaminase IgA <1.0 Value [...] PCR Reviewed date:08/23/2024 10:54:06 PM Interpretation: Performing Lab:[facility], [address] [place] [phone] Notes/Report: CDiff Gene PCR NEGATIVE Negative If C. difficile strongly suspected despite one negative test, a second test may be sent vs. empiric treatment for C. difficile infection. 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) Active confirmed Problem 28581294 Diarrhea, unspecified type (R19.7) Active confirmed Problem [id number] Angiodysplasia o f stomach (K31.819) Active confirmed Vital Signs Blood pressure diastolic 77 mm Hg 08/19/2024 Height 69 in 08/19/2024 Blood pressure systolic 111 mm Hg 08/19/2024 Weight 159 lbs 08/19/2024 BMI 23.48 kg/m2 08/19/2024 Encounters Encounter Location Date Provider Diagnosis [facility] [address] [place] [phone] 04/27/2024 Julio Cesar Chaparro Diarrhea, unspecifie d type R19.7 and Iron deficiency anemia due to chronic blood loss D50.0 [facility] [address] [place] [phone] 08/19/2024 Julio Cesar Chaparro Diarrhea, unspecifie d type R19.7 and Iron deficiency anemia due to chronic blood loss D50.0 [facility] [address] [place] [address] 07/13/2024 Julio Cesar Chaparro [facility] [address] [place] [address] 08/18/2024 Julio Cesar Chaparro Assessments Encounter Date [...] Date [employer] PREFERRED [address] [place] [address] [phone] [id number] LOPEZ CASEY Self - patient is the insured Medical (General) History Medical History History ICD Code Strokes--sees Dr. Ornelas NIDDM Hypertension Asthma COPD Denies [place],renal disease Iron deficiency anemia-he wa s hospitalized [...]
--- OUTSIDE RECORDS SUMMARY | 2024-12-10 09:11 | XMS_ITS | Patient Health Record ---
[facility] [place] Address [address], [place] [address] Care Team Providers Care Outer Diameter Grinder Tool Name Role Phone Monica Darby Primary Care Provider Unavailab Fabricio Granados Unavailable [phone] Allergies No Known Allergies Results Component Value [...] Referring Provider Last Name Wilner [facility] Referred Provider Fabricio Juan Referred Address [address] [place],[address], Referred Provider Specialty Podiatry Referral Priority Routine [...] Problem Acquired hammer toe of right foot (81850939645215 05) Other hammer toe(s) (acquired), right foot (M20.41) Active confirmed Problem Acquired hammer toe of left foot ([id number] 03) Other hammer toe(s) (acquired), left foot (M20.42) Active confirmed Problem Type 2 diabetes mellitus with peripheral angiopathy (536437065) 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.51) Active confirmed Vital Signs Blood pressure diastolic 65 mm Hg 11/26/2024 Height 5 ft 6 in in 11/26/2024 Blood pressure systolic 128 mm Hg 11/26/2024 Weight 160 lbs 11/26/2024 BMI 25.82 kg/m2 11/26/2024 Procedures Procedure Date Ordered Date Performed Result Body Sit e 39038-IUDLBRR NAIL, 1-5 02/24/2024 N/A 99349-OQGZ SKIN LESIONS, OVER 4 02/24/2024 N/A Y2152-AEVXTQVS DYSTROPHIC NAILS ANY # 02/24/2024 N/A 32237-ZGISQQO NAIL, 1-5 05/25/2024 N/A 29411-SJSX SKIN LESIONS, OVER 4 05/25/2024 N/A P7079-RCIYRAJE DYSTROPHIC NAILS ANY # 05/25/2024 N/A 28682-VTMOXIP NAIL, 1-5 08/24/2024 N/A 40676-RLHF SKIN LESIONS, OVER 4 08/24/2024 N/A I9887-RCRNMOSQ DYSTROPHIC NAILS ANY # 08/24/2024 N/A 36274-KTIARZU NAIL, 1-5 11/26/2024 N/A 13635-ILNT SKIN LESIONS, OVER 4 11/26/2024 N/A B1796-CZPHHLLF DYSTROPHIC NAILS ANY # 11/26/2024 N/A Encounters Encounter Location Date [facility] [address] 02/24/2024 Fabricio Parrunier Type 2 diabetes mellitus with diabetic peripheral angiopathy without gangrene E11.51 ; Tinea unguium B35.1 ; Pain in right toe(s) M79.674 ; Pain in left toe(s) M79.675 and Xerosis of skin L85.3 [facility] [address] 05/25/2024 Fabricio Juan Type 2 diabetes mellitus with diabetic peripheral angiopathy without gangrene E11.51 ; Tinea unguium B35.1 ; Pain in right toe(s) M79.674 ; Pain in left toe(s) M79.675 ; Other hammer toe(s) (acquired), right foot M20.41 and Other hammer toe(s) (acquired), left foot M20.42 [facility] [address] 08/24/2024 Fabricio Juan Tinea unguium B35.1 ; Type 2 diabetes mellitus with diabetic peripheral angiopathy without gangrene E11.51 ; Pain in right toe(s) M79.674 and Pain in left toe(s) M79.675 [facility] [address] 11/26/2024 Fabricio Parrunier Tinea unguium B35.1 ; [...] X ray : Foot, left 3V 02/06/2022 27568-TTWZYPI NAIL, -05/07/2022 41997-LOIIAKC NAIL, -01/21/2022 61895-FOGCHNR NAIL, -08/13/2022 43282-LTNXYYP NAIL, -11/12/2022 74724-PKYKETX NAIL, -02/04/2023 29464-LHHAIUL NAIL, -06/13/2023 42265-YZDTFNP NAIL, -11/21/2023 42707-UYGZHUC NAIL, -02/24/2024 67528-MIIOSKZ NAIL, -05/25/2024 11088-WOXSQMJ NAIL, -08/24/2024 19417-DBOTCGP NAIL, -11/26/2024 44130-Ylxu Destruction, -02/04/2023 35387-Wwum Destruction, -11/12/2022 23681-Unrk Destruction, -08/13/2022 66608-Bjpc Destruction, -01/21/2022 16455-Ezvb Destruction, -05/07/2022 26979-RTXN SKIN LESIONS, OVER 4 05/07/19 23 52562-LNOO SKIN LESIONS, OVER 4 01/22/20 56632-ZNWD SKIN LESIONS, OVER 4 08/14/19 02213-EZRQ SKIN LESIONS, OVER 4 11/13/19 23 48617-QTNK SKIN LESIONS, OVER 4 02/05/20 29849-TJZA SKIN LESIONS, OVER 4 11/21/19 32754-WIGQ SKIN LESIONS, OVER 4 06/13/19 24 44375-FROO SKIN LESIONS, OVER 4 11/27/19 25891-LLOX SKIN LESIONS, OVER 4 08/25/19 61615-YMJV SKIN LESIONS, OVER 4 05/25/19 94678-OWCM SKIN LESIONS, OVER 4 02/24/20 P7861-QFQFWLNN DYSTROPHIC NAILS ANY # H9195-BGXHXPRN DYSTROPHIC NAILS ANY # R6174-TKSFPWTT DYSTROPHIC NAILS ANY # M9429-LSWSIUFU DYSTROPHIC NAILS ANY # K6568-MDWFMAJN DYSTROPHIC NAILS ANY # Z6920-SQOFTPSQ DYSTROPHIC NAILS ANY # H6650-FFHGEQRR DYSTROPHIC NAILS ANY # F5856-PTGPZMFC DYSTROPHIC NAILS ANY # S0197-MCSNYTZI DYSTROPHIC NAILS ANY # N8266-JTXATEQA DYSTROPHIC NAILS ANY # F2783-GPAJTKRY DYSTROPHIC NAILS ANY # Next Appt Details Provider Name:Fabricio Juan , 03/15/2025 11:30:00 AM, [address] [place], [address], Insurance Providers Payer Name Payer Address Payer Phone Subscriber Number Group Number Insured Name Patient Relationship to Insured Coverage Start Date Coverage End Date [employer] Preferred [address] [place] [address] [id number] Jhonny Shrestha Self - patient is the insured Medical (General) History Medical History History ICD Code asthma Diabetic type ll Lung disease Parkinsons disease Stroke Chicken pox COPD Colon CA Hypercholesterolemia Hypertension Surgical History Surgery Date(Month/Year) appendectomy gall bladder cataract surgery Hospitalization History Reason Date(Month/Year) Ultrasound both legs for veins 2021
--- NOTE | 2024-12-10 09:36 | A.OFFVIS_ITS ---
Intake Visit Reasons: 6m/labs Intake Note: Patient is present for: 6mo follow up Urology Medication:FINASTERIDE Blood Thinner:NONE labs done 10/18/24: psa <0.10 Casual Shoe Inspector Required: No Accompanied by: Self / Same As Patient Allergies No Known Allergies (No Known Allergies*) Allergy (Verified 12/10/24 09:37) HPI Comments Details: Jhonny is a pleasant male. He is a patient of Dr. Darby. He seen for the following urologic conditions - prostate cancer Here for third GnRH Good response to GnRH therapy. PSA nondetectable Continue interval surveillance PSA Recommend bone support during hormonal therapy with Citracal and vitamin-D Continue finasteride PSA 02/10 13.2, 05/14 3.9 T 1.6, 08/12 <0.1 T6, 10/12 <0.1, 05/15 <0.1 T 37, 10/13 <0.1 GnRH 04/12, 11/11, 05/15 Prostate cancer 10/1123 grade group 3, low volume Prostate biopsy for elevated PSA - 9.6, free 14% 80 g prostate at time of TRUS, pT1c [place] score:?7 (4+3) (left apex lateral) 80% Periprostatic fat inv.: Not identified Seminal vesicle inv.: Not identified Perineural inv.: Not identified Lymphovascular invasion: Not identified PFSH Medical History Cough Hypersomnia Stroke COPD exacerbation COPD (chronic obstructive pulmonary disease) Allergic rhinitis Surgical History Hx of cataract surgery (~09/2023) S/P tonsillectomy and adenoidectomy Hx of cholecystectomy History of appendectomy Family History Mother No problems noted. Father Heart disease Social History Household Members: Spouse Housing: House Do you presently have visiting nurse or other home services: No Alcohol intake: former Patient Tobacco Use Status: Former Tobacco user Years Smoked: 40 +/- service: Yes Review of Systems Const Denies chills and Denies fever(s) Card Reports no additional complaints and Denies syncope Resp Denies cough GI Denies abdominal pain and Denies heartburn Reports as per HPI and Denies change in libido Neuro Denies syncope Psych Denies change in libido Endo Denies change in libido Physical Exam Const General: cooperative, healthy appearing, comfortable and no acute distress Orientation/consciousness: patient oriented x3 HEENT Face and sinus: Yes normal facial exam Mouth: moist mucous membranes Neck Neck: Yes normal visual inspection, Yes full ROM and Yes trachea midline Chest Chest palpation & inspection: normal inspection of the chest Resp Effort & Inspection: normal respiratory effort, able to speak in complete sentences and no respiratory distress GI Inspection: Yes normal to inspection Back/Spine/Pelvis Cervical Spine: normal cervical lordosis Thoracic/Lumbar Spine: thoracic and lumbar spine normal to inspection Skin General skin exam: no rashes or lesions noted Neuro General: patient oriented x3, gait normal, tone normal and moves all extremities Extrem General: Yes normal to inspection and Yes capillary refill normal Assessment & Plan Assessment & Plan (1) Prostate cancer: Code(s): C61 - Malignant neoplasm of prostate Category: Medical Plan Six-month follow-up repeat lab work tele Orders: Orders Prostate Specific Antigen 5 Months C61 - Malignant neoplasm of prostate Testosterone, Total 5 Months C61 - Malignant neoplasm of prostate Patient Instructions: This note is constructed using voice recognition software. While every effort has been made to ensure accuracy culinary director errors may have been included. Imaging studies, laboratory and physical exam results were discussed and reviewed in detail. No major barriers to patient understanding were identified. An opportunity to ask questions regarding the treatment plan was provided. All questions were answered. The patient expressed understanding and agreement with the above treatment plan. The patient is aware they should contact our office by phone for worsening of their current condition or the appearance of new urologic symptoms. Compliance is encouraged with any medications and followup testing that is ordered. It is a privilege to participate in the urologic care of your patient. If you have any questions or concerns regarding treatment for the above conditions, or other urologic issues, please do not hesitate to contact me. The office telephone contact is [phone]. Sincerely, Dr Gerson Beatty MD, [facility] - Urology Compassionate Specialist Care for the Genitourinary System Coding Level of Care Code Est Pt Level 3 (46539) Complex EM visit Add On G2211 Diagnoses Prostate cancer C61
== END 2024-12-10 09:57 | disposition home or self-care (01) ==
LOC: HO.HUSH 08:57
PROVIDERS: PCP Internal Medicine; Visit Provider Urology
DX: C61 Malignant neoplasm of prostate (principal)
CPT/HCPCS: 99213; G2211

== ENCOUNTER → 2024-12-10 08:57 | Outpatient (BNVA) | payer MEDICARE, SELFPAY | PROVIDERS: PCP Internal Medicine; Visit Provider Urology | DX: C61 Malignant neoplasm of prostate (principal) | CPT/HCPCS: 99212 ==

== ENCOUNTER 2024-12-15 17:08 | Inpatient (IN) | payer MEDICARE, SELFPAY ==
--- NOTE | ~2024-12-15 | CT_ITS ---
CLINICAL HISTORY: Melena CT abdomen and pelvis without contrast Comparison: CT/SR - CT ABDOMEN PELVIS WO IV CON - 12/04/24 18:35 EDT Findings: The lung bases are clear. Status post cholecystectomy. 0.8 cm distal left ureteral stone without hydronephrosis or hydroureter, but with upstream atrophy of the left kidney, suggestive of a chronic ureteral obstruction. No urolithiasis on the right. Other solid organs unremarkable. Hiatal hernia. New hyperdensity in the rectum and distal sigmoid colon, likely blood products in this patient with reported melena. Sigmoid diverticulosis without evidence of diverticulitis. Limited evaluation for active hemorrhage in this region due to the absence of intravenous contrast. Urinary bladder circumferentially thick-walled, likely due to underdistention. Prostatomegaly. Osseous structures unremarkable. IMPRESSION: New hyperdensity in the rectum and distal sigmoid colon, likely blood products, in this patient with reported melena. Limited evaluation for active hemorrhage due to the absence of intravenous contrast. Sigmoid diverticulosis without evidence of diverticulitis. 0.8 cm distal left ureteral stone with evidence of chronic obstruction, given appearance of atrophic left kidney This document has been electronically signed by: Robert Molina MD on 12/15/2024 23:09:22
[2024-12-15 17:45] VITALS: BP 139/63; PULSE 71; RESP 18; TEMP 36.3; O2SAT 94; BMI 25.7
--- NOTE | 2024-12-15 17:46 | ED.GENADULT ---
HPI - General Adult General Chief complaint: Nausea/Vomiting/Diarrhea Stated complaint: black diarrhea Time Seen by Provider: 12/15/24 21:43 Source: patient Mode of arrival: ambulatory Limitations: no limitations History of Present Illness ED Provider: DR. Moran HPI narrative: 84-year-old male PMHx HTN, CVA, COPD no supplemental oxygen, PID, colitis, GERD, depression, T2 DM, CKD stage IIIB, and HLD who presented to the ED for evaluation of black stool for the past 2 days. Patient had diarrhea for the past week that is started turn black for 2 days, has no abdominal pain, no dizziness, no CP, no SOB, no nausea, no vomiting, no history of anticoagulation therapy. Related Data Home Medications ?Medication ?Instructions ?Recorded ?Confirmed simvastatin 40 mg tablet 40 mg PO BEDTIME 03/13/20 12/05/24 cetirizine 10 mg tablet 10 mg PO BEDTIME 07/11/20 12/05/24 glipizide 5 mg tablet, extended 5 mg PO DAILY 10/08/22 12/05/24 release 24 hr lisinopril 10 1 tab PO DAILY 10/08/22 12/05/24 mg-hydrochlorothiazide 12.5 mg tablet Held on 12/06/24. Instructions: Resume on 12/08/24. once PO intake is optimal, resume BP medication, closely monitor your BP while you are holding this medication, IF BP is trending high, you can resume it sooner calcium carbonate (Calcium 600) 600 mg PO DAILY 05/11/24 12/05/24 cholecalciferol (vitamin D3) 50 50 mcg PO DAILY 05/11/24 12/05/24 mcg (2,000 unit) capsule aspirin 81 mg tablet,delayed 81 mg PO DAILY 11/30/24 12/05/24 release Previous Rx's ?Medication ?Instructions ?Recorded Breo Ellipta 100 mcg-25 mcg/dose 1 inh inhalation DAILY COPD 90 06/18/24 powder for inhalation (fluticasone days #3 ea furoate-vilanterol) finasteride 5 mg tablet 5 mg PO DAILY 90 days #90 tabs 11/01/24 Allergies Allergy/AdvReac Type Severity Reaction Status Date / Time No Known Allergies (No Known Allergy Verified 12/15/24 17:45 Allergies*) Review of Systems Review of Systems: All other systems are reviewed and are negative Constitutional: Reports as per HPI and Reports no additional constitutional complaints Eyes: Reports as per HPI and Reports no additional eye complaints Reports system reviewed and no additional complaints, except as documented Cardiovascular: Reports as per HPI and Reports no additional cardiovascular complaints Respiratory: Reports as per HPI and Reports no additional respiratory complaints Gastrointestinal: Reports as per HPI and Reports no additional gastrointestinal complaints Genitourinary: Reports no additional female genitourinary complaints Musculoskeletal: Reports no additional musculoskeletal complaints Skin/Breast: Reports system reviewed and no additional complaints, except as docu Psychiatric: Reports no additional psychiatric complaints Endocrine: Reports no additional endocrine complaints Hematologic/Lymphatic: Reports no additional hematologic/lymphatic complaints Allergic/Immunologic: Reports no additional allergic/immunologic complaints Reports system reviewed and no additional complaints, except as documented and Reports Abnormal speech present [facility] Past Medical History Medical History Bradycardia Bronchitis Bifascicular block Sinoatrial node dysfunction CKD (chronic kidney disease) stage 3, GFR 30-59 ml/min Cough Hypersomnia Stroke COPD exacerbation COPD (chronic obstructive pulmonary disease) Allergic rhinitis Surgical History Hx of cataract surgery (~09/2023) S/P tonsillectomy and adenoidectomy Hx of cholecystectomy History of appendectomy Family History Family History Mother No problems noted. Father Heart disease Social History Social History Household Members: Spouse Housing: House Do you presently have visiting nurse or other home services: No Alcohol intake: former Patient Tobacco Use Status: Former Tobacco user Years Smoked: 40 +/- Advance Directives: No Advance Directives Information Provided: Yes Do you have a plan to hurt others: No Plan service: Yes Physical Exam ED Vital Signs: Vital Signs - 24 hr 12/15/24 17:45 12/15/24 22:53 Temperature 97.3 F 98.4 F Pulse Rate 71 64 Respiratory Rate 18 16 Blood Pressure 139/63 138/58 L Pulse Oximetry 94 96 Oxygen Delivery Method Room Air Room Air BMI result Body Mass Index 25.7 Vital signs have been reviewed and appear to be correct. Blood pressure elevated. Heart rate normal. Respiratory rate normal. Temperature normal. Oxygen saturation normal. Appearance: Alert. Oriented X3. No acute distress. Head: Normal external exam. Normocephalic. Atraumatic. No [place]ong signs noted. No raccoon eyes noted Eyes: PERRLA. EOMI. Conjunctiva and sclera normal. Eyelids normal. ENT: TM's Normal. Pharynx normal. Uvula midline. Moist mucous membranes. No trismus noted. No drooling noted. No muffled voice noted. Neck: Normal inspection. Neck supple. FROM. No adenopathy. Thyroid Normal. No meningeal signs. No neck mass noted. CVS: Normal heart rate and rhythm. Heart sound normal. No murmurs noted. Pulses normal throughout. Respiratory: No respiratory distress. Painless inspiration. Breath sounds normal. No wheezes/rales/rhonchi noted. Chest nontender. No accessory muscle usage noted or decreased air movement noted. Abdomen: Soft and nontender. Bowel sounds normal in all 4 quadrants. No distention noted. No organomegaly noted. No visible injury noted. Rectal exam: Blood colored stool, guaiac positive. Back: No CVA tenderness. Full range of motion noted. Skin: Skin warm and dry. Normal skin color. Normal skin turgor. No rashes/lesions/lacerations noted. Extremities: No lower extremity edema. Extremities exhibit normal range of motion. Extremities nontender. Neuro: Oriented X 3. Cranial nerve exam: II-XII are grossly intact No motor deficit. No sensory deficit. Reflexes normal. Course Course Course Narrative: This is an RME: Additional HPI, ROS, PE not included below will be deferred to primary provider. RME assessment and note performed by: Dian Panda PA-C This is a 58-j[age]y-jrw-male, essential hypertension, stroke in 2019, COPD -not home O2, PAD, colitis/diarrhea, GERD, depression, type 2 diabetes mellitus, CKD stage 3B, essential tremors and hyperlipidemia who presents to the ER with concerns with concerns of black stool. Dr. Darby called in an expect. Pt recently admitted for KARLA, lactic acidosis and was admitted for diverticulitis, discharged on Augmentin and Flagyl, which he has been taking. Noticed black stool for the last 2 days. He reports no current pain. Plan: Labs, further Er eval needed Reevaluation(s) Reevaluation #1: Melena, not on AC, stable H&H, exam in the ED shows black stool was grossly guaiac positive on the guaiac card however sample was sent to the lab was read as negative, CT abdomen pelvis done without IV contrast because patient has history of CKD. Received PPI in the ED will admit for further evaluation. Time: 23:14 Medical Decision Making Differential Diagnosis Differential Diagnoses: The differential diagnosis associated with the presentation includes (Rectal bleed, anemia, electrolyte derangement, coagulopathy.) Admission/Observation Consideration of admission/observation: Escalation of care including admission/observation considered Consult Healthcare Provider Management of the patient was discussed with: Hospitalist (Dr. Obando) Lab Data MDM Lab Attestation statement: I reviewed the patient's lab results. 12/15/24 18:15 12/15/24 18:15 Labs: Lab Results 12/15/24 12/15/24 12/15/24 Range/Units 18:15 22:28 22:50 WBC 12.5 H (4.8-10.8) X10*3/uL RBC 4.54 L (4.60-5.80) X10*6/uL Hgb 12.2 L (14.0-18.0) g/dl Hct 38.5 L (42.0-52.0) % MCV 84.8 (80.0-98.0) fL MCH 26.9 L (27.0-33.0) pg MCHC 31.7 (31.0-36.0) g/dl RDW 15.1 (11.0-16.0) % Plt Count 233 D (160-400) X10*3/uL MPV 11.1 (9.4-12.4) fL Immature Gran % (Auto) 0.3 (0.0-0.4) % Neut % (Auto) 63.4 (45-73) % Lymph % (Auto) 21.8 (20-40) % [place] % (Auto) 5.2 (2-11) % Eos % (Auto) 8.8 H (0-4) % Baso % (Auto) 0.5 (0-2) % Lymph # (Auto) 2.7 (1.2-4.9) X10*3/uL [place] # (Auto) 0.7 (0.1-1.2) X10*3/uL Eos # (Auto) 1.1 H (0.0-0.4) X10*3/uL Baso # (Auto) 0.1 (0.0-0.2) X10*3/uL Abs Immat Gran (auto) 0.04 H (0.00-0.03) X10*3/uL Absolute Neuts (auto) 8.0 (2.0-8.3) x10*3/uL Absolute Nucleated RBC 0.000 (0.0-0.012) X10*3/uL Nucleated RBC % (auto) 0.0 (0.0-0.2) /100WBC PT 12.6 H (10.9-12.4) SEC INR 1.1 (0.9-1.1) Sodium 139 (135-145) mmol/L Potassium 4.3 (3.3-5.1) mmol/L Chloride 111 H (96-108) mmol/L Carbon Dioxide 19 L (22-29) mmol/L Anion Gap 13 (12-20) BUN 28 H (9-16) mg/dL Creatinine 1.33 (0.5-1.4) mg/dL Estim Creat Clear Calc 36.6 Estimated GFR 51 Random Glucose 131 H (60-115) mg/dL Calcium 9.0 D (8.4-10.2) mg/dL Magnesium 2.2 (1.6-2.6) mg/dL Total Bilirubin 0.1 (0.0-1.0) mg/dL Direct Bilirubin < 0.2 (0.0-0.5) mg/dL AST 24 (5-37) U/L ALT 14 (0-40) U/L Alkaline Phosphatase 65 (39-117) U/L Troponin I High Sens 7.9 (<3.5-35.0) ng/L Total Protein 6.5 (6.5-8.0) g/dL Albumin 3.5 (3.5-5.0) g/dL Lipase 17 (8-78) U/L Stool Occult Blood NEGATIVE (NEGATIVE) Blood Type O Negative Antibody Screen NEGATIVE Independent Interpretation I performed an independent interpretation of an: CT Scan (Abdomen and pelvis:New hyperdensity in the rectum and distal sigmoid colon, likely blood products, in this patient with reported melena. Limited evaluation for active hemorrhage due to the absence of intravenous contrast. Sigmoid diverticulosis without evidence of diverticulitis. 0.8 cm distal l) Radiology Impression Discussion of test interpretation with radiology: I have reviewed the radiologist's reading. Discharge Plan Discharge Clinical Impression: Gastrointestinal hemorrhage with melena Patient Disposition: Admitted As Inpatient Print Language: Icelandic
[2024-12-15 18:27] LABS: Hematocrit 38.5 % (42.0-52.0); Hemoglobin 12.2 g/dl (14.0-18.0); Imm Gran Abs Auto 0.04 X10*3/uL (0.00-0.03); Imm Gran Pct Auto 0.3 % (0.0-0.4); Lymphocytes Absolute Auto 2.7 X10*3/uL (1.2-4.9); MANUAL DIFF FLAG NO; Mean Corpuscular HGB Conc 31.7 g/dl (31.0-36.0); Mean Corpuscular Hemoglobin 26.9 pg (27.0-33.0); Mean Corpuscular Volume 84.8 fL (80.0-98.0); NRBC Abs Auto 0.000 X10*3/uL (0.0-0.012); NRBC Pct Auto 0.0 /100WBC (0.0-0.2); Platelet Count 233 X10*3/uL (160-400); Red Blood Count 4.54 X10*6/uL (4.60-5.80); White Blood Count 12.5 X10*3/uL (4.8-10.8)
[2024-12-15 19:02] LABS: Alanine Aminotransferase 14 U/L (0-40); Albumin Level 3.5 g/dL (3.5-5.0); Alkaline Phosphatase 65 U/L (39-117); Anion Gap 13 (12-20); Aspartate Amino Transferase 24 U/L (5-37); Blood Urea Nitrogen 28 mg/dL (9-16); Calcium 9.0 mg/dL (8.4-10.2); Carbon Dioxide 19 mmol/L (22-29); Chloride 111 mmol/L (96-108); Creatinine Clr Calc Pharmacy 36.6; Estimated Glomerular Filt Rate 51; Lipase 17 U/L (8-78); Magnesium 2.2 mg/dL (1.6-2.6); Potassium 4.3 mmol/L (3.3-5.1); Sodium 139 mmol/L (135-145); Total Protein 6.5 g/dL (6.5-8.0)
--- NOTE | 2024-12-15 19:47 | PC.NURSE ---
Patient approached this RN mid-triage with another patient, asking about when labs will be ready and when he is getting a room. Patient notified that we are working as fast/efficiently as we can, and encouraged the patient to remain in ED waiting room to be called for further evaluation. JEYSON Blevins aware.
--- OUTSIDE RECORDS SUMMARY | 2024-12-15 21:49 | XMS_ITS | Clinical Summary ---
[facility] [address] [place] [address] Care Team Providers Care Regional Maintenance Manager Name Role Phone Unavailable Primary Care Provider [...]
--- OUTSIDE RECORDS SUMMARY | 2024-12-15 21:49 | XMS_ITS | Clinical Summary ---
Author Organization [facility] Facility Address [address] [place] [address] Care Team Providers Care Mold Stacker Name Role Phone Monica Darby MD Primary [...] DAILY 3 Active Lancets (OneTouch Delica Plus [id number]) misc USE TO CHECK SUGARS DAILY 3 [...] patient's age to complete this topic Insurance [facility] Care Teams Mold Stacker Relationship Specialty Start Date End Date Monica Darby MD [address] [place] [address] PCP - General Internal Medicine 05/14/22
--- OUTSIDE RECORDS SUMMARY | 2024-12-15 21:49 | XMS_ITS | Patient Health Record ---
Author Organization [facility] [place]ir [place] Address [address] [place] [address] Care Team Providers Care Furniture Mechanic Name Role Phone Monica Darby Primary Care Provider Unavailab Fabricio Granados Unavailable [phone] Allergies No Known Allergies Results Component Value [...] Referring Provider Last Name Wilner [facility] Aleksandar Referred Provider Fabricio Juan Referred Address [address] [place],[address], Referred Provider Specialty Podiatry Referral Priority Routine [...] Problem Acquired hammer toe of right foot (75948684085662 05) Other hammer toe(s) (acquired), right foot (M20.41) Active confirmed Problem Acquired hammer toe of left foot (97816422339315 03) Other hammer toe(s) (acquired), left foot (M20.42) Active confirmed Problem Type 2 diabetes mellitus with peripheral angiopathy (633440761) 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.51) Active confirmed Vital Signs Blood pressure diastolic 65 mm Hg 11/26/2024 Height 5 ft 6 in in 11/26/2024 Blood pressure systolic 128 mm Hg 11/26/2024 Weight 160 lbs 11/26/2024 BMI 25.82 kg/m2 11/26/2024 Procedures Procedure Date Ordered Date Performed Result Body Sit e 05359-MEIFRMH NAIL, 1-5 02/24/2024 N/A 31831-VDCO SKIN LESIONS, OVER 4 02/24/2024 N/A B3902-VBZJRRYZ DYSTROPHIC NAILS ANY # 02/24/2024 N/A 64254-UCZNTME NAIL, 1-5 05/25/2024 N/A 35220-EWRM SKIN LESIONS, OVER 4 05/25/2024 N/A R3476-GXIYRPGJ DYSTROPHIC NAILS ANY # 05/25/2024 N/A 70218-WMDWNVX NAIL, 1-5 08/24/2024 N/A 04428-NHTW SKIN LESIONS, OVER 4 08/24/2024 N/A W2322-CYSSPTXA DYSTROPHIC NAILS ANY # 08/24/2024 N/A 27454-EPWQOBZ NAIL, 1-5 11/26/2024 N/A 66299-VLIM SKIN LESIONS, OVER 4 11/26/2024 N/A K3816-ZMLANJQV DYSTROPHIC NAILS ANY # 11/26/2024 N/A Encounters Encounter Location Date Provider Diagnosis [facility] [address] 02/24/2024 Fabricio Parrunier Type 2 diabetes mellitus with diabetic peripheral angiopathy without gangrene E11.51 ; Tinea unguium B35.1 ; Pain in right toe(s) M79.674 ; Pain in left toe(s) M79.675 and Xerosis of skin L85.3 [facility] [address] 05/25/2024 Fabricio Juan Type 2 diabetes mellitus with diabetic peripheral angiopathy without gangrene E11.51 ; Tinea unguium B35.1 ; Pain in right toe(s) M79.674 ; Pain in left toe(s) M79.675 ; Other hammer toe(s) (acquired), right foot M20.41 and Other hammer toe(s) (acquired), left foot M20.42 [facility] [address] 08/24/2024 Fabricio Juan Tinea unguium B35.1 ; Type 2 diabetes mellitus with diabetic peripheral angiopathy without gangrene E11.51 ; Pain in right toe(s) M79.674 and Pain in left toe(s) M79.675 [facility] [address] 11/26/2024 Fabricio Parrunier Tinea unguium B35.1 ; [...] X ray : Foot, left 3V 02/06/2022 46282-PZSYTXP NAIL, -05/07/2022 66188-QKENTHC NAIL, -01/21/2022 20580-JMDFFGE NAIL, -08/13/2022 70316-UFOWJKZ NAIL, -11/12/2022 68769-FTSLHQG NAIL, -02/04/2023 58635-NMNZPSH NAIL, -06/13/2023 33401-UZNMMGO NAIL, -11/21/2023 39399-OCFFRXM NAIL, -02/24/2024 79107-LVDQEFF NAIL, -05/25/2024 24949-SZIOGZY NAIL, -08/24/2024 15085-ICCHDYP NAIL, -11/26/2024 90895-Agsd Destruction, -02/04/2023 19895-Lvld Destruction, -11/12/2022 84125-Zazg Destruction, -08/13/2022 87377-Udrl Destruction, -01/21/2022 66198-Wzzi Destruction, -05/07/2022 06905-RGAJ SKIN LESIONS, OVER 4 05/07/19 23 25095-NCQI SKIN LESIONS, OVER 4 01/22/20 32425-RLSP SKIN LESIONS, OVER 4 08/14/19 60766-DAAS SKIN LESIONS, OVER 4 11/13/19 23 51824-FGKO SKIN LESIONS, OVER 4 02/05/20 48432-ASBL SKIN LESIONS, OVER 4 11/21/19 34490-ISVR SKIN LESIONS, OVER 4 06/13/19 24 28023-SKWA SKIN LESIONS, OVER 4 11/27/19 32432-FXKP SKIN LESIONS, OVER 4 08/25/19 89837-WZUI SKIN LESIONS, OVER 4 05/25/19 50590-ZQDX SKIN LESIONS, OVER 4 02/24/20 K8693-GWSLIBCW DYSTROPHIC NAILS ANY # T3091-UPHJDFFW DYSTROPHIC NAILS ANY # N8547-GKRMBRWP DYSTROPHIC NAILS ANY # Z0721-SKFPKVAH DYSTROPHIC NAILS ANY # K2655-QMEOLZCE DYSTROPHIC NAILS ANY # H7360-JWETRIHS DYSTROPHIC NAILS ANY # L6850-RKGOQVSH DYSTROPHIC NAILS ANY # U3892-CSCQDGUR DYSTROPHIC NAILS ANY # Q2866-XYTVFZET DYSTROPHIC NAILS ANY # D5434-INVWVPZM DYSTROPHIC NAILS ANY # Z8831-YZRWTYNQ DYSTROPHIC NAILS ANY # Next Appt Details Provider Name:Fabricio Juan , 03/15/2025 11:30:00 AM, [address] [place], [address], Insurance Providers Payer Name Payer Address Payer Phone Subscriber Number Group Number Insured Name Patient Relationship to Insured Coverage Start Date Coverage End Date [employer] Preferred [address] [place] [address] [id number] Jhonny Shrestha Self - patient is the insured Medical (General) History Medical History History ICD Code asthma Diabetic type ll Lung disease Parkinsons disease Stroke Chicken pox COPD Colon CA Hypercholesterolemia Hypertension Surgical History Surgery Date(Month/Year) appendectomy gall bladder cataract surgery Hospitalization History Reason Date(Month/Year) Ultrasound both legs for veins 2021
--- OUTSIDE RECORDS SUMMARY | 2024-12-15 21:50 | XMS_ITS | Patient Health Record ---
Author Organization [facility] Address [address] [place] [address] Care Team Providers Care Oxyhydrogen Welder Name Role Phone Puneetgary Monica Primary Care Provider Julio Cesar Green [phone] Allergies No Known Allergies Results Component Value Reference Range Notes Ferritin Reviewed date:08/21/2024 10:07:00 PM Interpretation: Performing Lab:[facility], [address] [place] [phone] Notes/Report: Ferritin 86 20-250 ng/mL Calprotectin, Fecal Reviewed date:09/05/2024 12:15:05 AM Interpretation: Performing Lab:[facility], [address] [place] [phone] Notes/Report: Calprotectin, Fecal 192 Reference Range: <50 [...] borderline values. THIS TEST WAS PERFORMED AT: [facility] [address] [place] [address] JOEL JUAREZ MD,PHD,TERESO GI PANEL Reviewed date:08/25/2024 07:32:48 AM Interpretation: Performing Lab:[facility], [address] [place] [phone] Notes/Report: Campylobacter Not Detected Not Detect. Plesiomonas [...] is performed by Multiplexed PCR, utilizing the Silicon Clocks Array. Complete Blood Count Auto Di ff Reviewed date:08/21/2024 10:05:57 PM Interpretation: Performing Lab:[facility], [address] [place] [phone] Notes/Report: White Blood Count 7.9 4.8-10.8 X10*3/uL [...] te Reviewed date:08/21/2024 10:05:25 PM Interpretation: Performing Lab:[address] [address] Notes/Report: Erythrocyte Sedimentation Rate 34 0-15 MM/HR Patients with polycythemia and many hemoglobin abnormalities may have depressed sed rates whereas patients with anemia may have elevated sed rates. IRON PROFILE Reviewed date:08/21/2024 10:05:44 PM Interpretation: Performing Lab:[address] [address] Notes/Report: Iron 33 45-160 mcg/dL Total Iron Binding Capacity 228 228-428 mcg/dL Percent Iron Saturation 14 15-50 % Unsaturated Iron Binding 195 C Reactive Protein Reviewed date:08/21/2024 10:05:37 PM Interpretation: Performing Lab:[facility], [address] [place] [phone] Notes/Report: C Reactive Protein 0.24 < or = 0.50 mg/dL Celiac Disease Panel Reviewed date:08/23/2024 10:54:56 PM Interpretation: Performing Lab:[facility], [address] [place] [phone] Notes/Report: Immunoglobulin A 195 70-320 mg/dL THIS TEST WAS PERFORMED AT: [facility] [address] [place] [phone] JES MCLAUGHLIN MD Transglutaminase IgA <1.0 Value [...] PCR Reviewed date:08/23/2024 10:54:06 PM Interpretation: Performing Lab:[facility], [address] [place] [phone] Notes/Report: CDiff Gene PCR NEGATIVE Negative If C. difficile strongly suspected despite one negative test, a second test may be sent vs. empiric treatment for C. difficile infection. 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) Active confirmed Problem 77643016 Diarrhea, unspecified type (R19.7) Active confirmed Problem 472050615 Angiodysplasia o f stomach (K31.819) Active confirmed Vital Signs Blood pressure diastolic 77 mm Hg 08/19/2024 Height 69 in 08/19/2024 Blood pressure systolic 111 mm Hg 08/19/2024 Weight 159 lbs 08/19/2024 BMI 23.48 kg/m2 08/19/2024 Encounters Encounter Location Date Provider Diagnosis [facility] [address] [place] [address] 04/27/2024 Julio Cesar Chaparro Diarrhea, unspecifie d type R19.7 and Iron deficiency anemia due to chronic blood loss D50.0 [facility] [address] [place] [address] 08/19/2024 Julio Cesar Chaparro Diarrhea, unspecifie d type R19.7 and Iron deficiency anemia due to chronic blood loss D50.0 [facility] [address] [place] [address] 07/13/2024 Julio Cesar Chaparro [facility] [address] [place] [address] 08/18/2024 Julio Cesar Chaparro Assessments Encounter Date [...] Date [employer] PREFERRED [address] [place] [address] [id number] LOPEZ CASEY Self - patient is the insured Medical (General) History Medical History History ICD Code Strokes--sees Dr. Ornelas NIDDM Hypertension Asthma COPD Denies [place],renal disease Iron deficiency anemia-he wa s hospitalized [...]
[2024-12-15 22:44] LABS: INTERNATIONAL NORM RATIO 1.1 (0.9-1.1); Prothrombin Time 12.6 SEC (10.9-12.4)
[2024-12-15 22:53] VITALS: BP 138/58; PULSE 64; RESP 16; TEMP 36.9; O2SAT 96
[2024-12-15 23:05] LABS: OBS Int Ctl Valid YES; OBS1 NEGATIVE (NEGATIVE)
[2024-12-15 23:06] LABS: Troponin-I High Sensitivity 7.9 ng/L (<3.5-35.0)
--- NOTE | 2024-12-15 23:21 | PM.IMHP ---
History of Present Illness Date of Service: 12/15/24 Chief Complaint: Melena 84-year-old male with a past medical history of HTN, HLD, dm, COPD, CVA, CKD, GERD, sinoatrial node dysfunction, bradycardia; presented to the hospital today with a chief complaint of diarrhea. Patient reports over the past 3 days he has been having black stools. Denies any abdominal pain. Denies any shortness with the dyspnea on exertion. Denies any lightheadedness or dizziness. Denies any chest pain or palpitations. Reports he takes aspirin. Review of all other systems is negative except mentioned above ER course: Per ER team, patient abdominal exam is benign. CT abdomen pelvis showed new hypodensity in the rectum and sigmoid colon likely blood products. Limited evaluation for active hemorrhage. Sigmoid diverticulosis. 0.8 cm left ureteral stone without any obstruction. Hemoglobin 12.2. [facility] Medical History Bradycardia Bronchitis Bifascicular block Sinoatrial node dysfunction CKD (chronic kidney disease) stage 3, GFR 30-59 ml/min Cough Hypersomnia Stroke COPD exacerbation COPD (chronic obstructive pulmonary disease) Allergic rhinitis Family History Mother No problems noted. Father Heart disease Surgical History Hx of cataract surgery (~09/2023) S/P tonsillectomy and adenoidectomy Hx of cholecystectomy History of appendectomy Social History Household Members: Spouse Housing: House Do you presently have visiting nurse or other home services: No Alcohol intake: former Patient Tobacco Use Status: Former Tobacco user Years Smoked: 40 +/- Advance Directives: No Advance Directives Information Provided: Yes Do you have a plan to hurt others: No Plan service: Yes Meds Allergies Allergy/AdvReac Type Severity Reaction Status Date / Time No Known Allergies (No Known Allergy Verified 12/15/24 17:45 Allergies*) Active Medications: Current Medications Acetaminophen (Acetaminophen 325 Mg Tablet) 650 mg PO Q6H PRN PRN Reason: Pain, Mild 1-3,fever,headache Calcium Carbonate (Calcium Carbonate 750 Mg Tab.Chew) 750 mg PO Q4H PRN PRN Reason: Heartburn Lactated Ringer's (Lr) 1,000 mls @ 100 mls/hr IVCONT .Q10H CELY Magnesium Hydroxide (Milk Of Magnesia 30 Ml Oral.Susp) 30 ml PO DAILY PRN PRN Reason: Constipation Melatonin (Melatonin 3 Mg Tablet) 6 mg PO BEDTIME PRN PRN Reason: Insomnia Pantoprazole Sodium (Pantoprazole Sodium 40 Mg/10 Ml Vial) 40 mg IVPUSH DAILY@0630 REPLACED BY [facility] Sodium Chloride (0.9 % Sodium Chloride Flush 3 Ml Syringe) 3 ml IVFLUSH QSHIFT REPLACED BY [facility] Home Medications ?Medication ?Instructions ?Recorded ?Confirmed ?Last Taken ?Type simvastatin 40 mg tablet 40 mg PO BEDTIME 03/13/20 12/05/24 Unknown History cetirizine 10 mg tablet 10 mg PO BEDTIME 07/11/20 12/05/24 Unknown History glipizide 5 mg tablet, extended 5 mg PO DAILY 10/08/22 12/05/24 12/04/24 History release 24 hr lisinopril 10 1 tab PO DAILY 10/08/22 12/05/24 Unknown History mg-hydrochlorothiazide 12.5 mg tablet Held on 12/06/24. Instructions: Resume on 12/08/24. once PO intake is optimal, resume BP medication, closely monitor your BP while you are holding this medication, IF BP is trending high, you can resume it sooner calcium carbonate (Calcium 600) 600 mg PO DAILY 05/11/24 12/05/24 Unknown History cholecalciferol (vitamin D3) 50 50 mcg PO DAILY 05/11/24 12/05/24 Unknown History mcg (2,000 unit) capsule aspirin 81 mg tablet,delayed 81 mg PO DAILY 11/30/24 12/05/24 Unknown History release Physical Exam Vital Signs and Narrative: Vital Signs: Last Vital Signs Temp 98.4 F 12/15/24 22:53 Pulse 64 12/15/24 22:53 Resp 16 12/15/24 22:53 BP 138/58 L 12/15/24 22:53 Pulse Ox 96 12/15/24 22:53 O2 Del Method Room Air 12/15/24 22:53 BMI result Body Mass Index 25.7 Gen: Appears be in no acute distress HEENT: NCAT, Moist mucosa. Pulmonary: Vesicular breath sounds, fair air entry CVS: Normal S1-S2 Abdomen: BS+, Soft, Nontender Extremities: Warm well perfused Neuro: Alert and awake. Results Labs 12/15/24 18:15 12/15/24 18:15 Labs: Laboratory Results - last 24 hr 12/15/24 12/15/24 12/15/24 18:15 22:28 22:50 MCV 84.8 MCH 26.9 L MCHC 31.7 RDW 15.1 Plt Count 233 D MPV 11.1 Immature Gran % (Auto) 0.3 Neut % (Auto) 63.4 Lymph % (Auto) 21.8 [place] % (Auto) 5.2 Eos % (Auto) 8.8 H Baso % (Auto) 0.5 Lymph # (Auto) 2.7 [place] # (Auto) 0.7 Eos # (Auto) 1.1 H Baso # (Auto) 0.1 Abs Immat Gran (auto) 0.04 H Absolute Neuts (auto) 8.0 Absolute Nucleated RBC 0.000 Nucleated RBC % (auto) 0.0 PT 12.6 H INR 1.1 Anion Gap 13 Estim Creat Clear Calc 36.6 Estimated GFR 51 Random Glucose 131 H Calcium 9.0 D Magnesium 2.2 Total Bilirubin 0.1 Direct Bilirubin < 0.2 AST 24 ALT 14 Alkaline Phosphatase 65 Total Protein 6.5 Albumin 3.5 Lipase 17 Stool Occult Blood NEGATIVE Blood Type O Negative Antibody Screen NEGATIVE Assessment and Plan (1) Gastrointestinal hemorrhage with melena: Status: Acute Plan 84-year-old male with a past medical history of HTN, HLD, dm, COPD, CVA, CKD, GERD, sinoatrial node dysfunction, bradycardia; presented to the hospital today with a chief complaint of diarrhea/melena GI bleed: IV PPI NPO GI consult Serial H and H Hold home aspirin until cleared by Gastroenterology. Diabetes: Insulin sliding scale Hypertension: Blood pressure normal side. Hold home antihypertensives for now. DVT prophylaxis: SCD boots Code status: Full code Quality Stroke Does the patient have a stroke diagnosis?: Yes Reason for No Anti-thrombotic by Day Two: N/A - Med Ordered VTE Prior VTE?: No VTE Risk Level:: Medical - moderate - high VTE Device Contraindication: N/A - Device Ordered VTE Drug Contraindication: Treatment Not Indicated
[2024-12-16] VITALS (12 sets, daily range): BP systolic 137–154; BP diastolic 56–70; PULSE 27–76; RESP 13–20; TEMP 36.1–36.7; O2SAT 94–97; BMI 25.7
--- NOTE | 2024-12-16 | ECG_ITS ---
Test Reason : joey Blood Pressure : */* mmHG Vent. Rate : 45 BPM Atrial Rate : * BPM P-R Int : * ms QRS Dur : 134 ms QT Int : 520 ms P-R-T Axes : * -60 -30 degrees QTcB Int : 449 ms Normal sinus rhythm with Mobitz I (Wenckebach) block Left axis deviation Right bundle branch block Inferior infarct (cited on or before 05-Dec-2024) Abnormal ECG When compared with ECG of 05-Dec-2024 00:24, No significant changes seen Referred By: Hebert Obando Electronically Signed By: DARREL CABALLERO
[2024-12-16] MEDS: Lactated Ringers 1,000 ML 100 ML IVCONT ×3 (00:14→20:34)
--- NOTE | 2024-12-16 00:25 | PC.NURSE ---
RN assumed care for pt at 2300, pt had no IV access. RN tried 2x with no success. Asked another RN for assistance. pt now has access in the LAC. LR started on the pump. Pt has a chronic cough- states he takes cough medicine at home. RN reached out to admitting MD for a possibility of a prn cough medicine. No new orders at this time.
--- NOTE | 2024-12-16 02:09 | PC.NURSE ---
RN reached out to admitting MD- pts heart rate is dropping in the 30-40 range, hes asymptomatic. waiting for further orders.
--- NOTE | 2024-12-16 03:26 | PC.NURSE ---
pt continues to remain bradycardic; pt is still asymptomatic and states my heart rate drops at night. . provider is aware.
--- NOTE | 2024-12-16 03:48 | PC.NURSE ---
RN reached out to MD again as pt is having c/o of not being able to sleep d/t his cough. RN waiting for orders.
--- NOTE | 2024-12-16 05:04 | PC.NURSE ---
placed ordered for tefflon pearls for pt. Pt medicated per MAR order.
[2024-12-16 05:40] LABS: MANUAL DIFF FLAG NO
[2024-12-16 05:50] LABS: Hematocrit 36.1 % (42.0-52.0); Hemoglobin 11.3 g/dl (14.0-18.0); Imm Gran Abs Auto 0.02 X10*3/uL (0.00-0.03); Imm Gran Pct Auto 0.2 % (0.0-0.4); Lymphocytes Absolute Auto 2.4 X10*3/uL (1.2-4.9); Mean Corpuscular HGB Conc 31.3 g/dl (31.0-36.0); Mean Corpuscular Hemoglobin 26.7 pg (27.0-33.0); Mean Corpuscular Volume 85.1 fL (80.0-98.0); NRBC Abs Auto 0.000 X10*3/uL (0.0-0.012); NRBC Pct Auto 0.0 /100WBC (0.0-0.2); Platelet Count 230 X10*3/uL (160-400); Red Blood Count 4.24 X10*6/uL (4.60-5.80); White Blood Count 10.0 X10*3/uL (4.8-10.8)
[2024-12-16 06:10] LABS: Alanine Aminotransferase 14 U/L (0-40); Albumin Level 3.8 g/dL (3.5-5.0); Alkaline Phosphatase 60 U/L (39-117); Anion Gap 12 (12-20); Aspartate Amino Transferase 21 U/L (5-37); Blood Urea Nitrogen 25 mg/dL (9-16); Calcium 9.0 mg/dL (8.4-10.2); Carbon Dioxide 24 mmol/L (22-29); Chloride 109 mmol/L (96-108); Creatinine Clr Calc Pharmacy 38.3; Estimated Glomerular Filt Rate 54; Potassium 3.4 mmol/L (3.3-5.1); Sodium 142 mmol/L (135-145); Total Protein 6.4 g/dL (6.5-8.0)
[2024-12-16 07:13] LABS: Glucose, Whole Blood 72 mg/dL (60-115)
--- NOTE | 2024-12-16 09:01 | PHA.MEDREC ---
Addendum entered by Gordy Barr, PharmD 12/16/24 09:04: MED REC CHECKED BY [facility] Original Note: Pharmacy Consult ? Medication Reconciliation Pharmacy has completed the medication reconciliation. Spoke to patient to confirm med list. Patient states he is no longer taking Calcium Carbonate 600 mg, and Cetirizine 10 mg. Patient states he last took his medications yesterday.
--- NOTE | 2024-12-16 09:46 | PC.NURSE ---
US notified this radio script writer at 09 that she saw episode of joey at 27 HR. This was seen at 0804. At time of notification, pt HR 50. checked on pt who reports no CP, SOB. no distress noted. no abd pain. Hospitalist Sara notified and strip printed and tigered over. awaiting further orders
--- NOTE | 2024-12-16 11:23 | MHC.CM.PN ---
PT REPORTS HE LIVES WITH HIS AND IS INDEPENDENT WITH CARE HE HAS NO DME AND NO SERVICES COPY OF HCP REQUESTED PCP: ADRIEN COLEY IMM DELIVERED DCP: HOME NO SERVICES SON TO TRANSPORT
--- NOTE | 2024-12-16 11:31 | P.PNIM_ITS ---
Subjective Subjective Date of Service: 12/16/24 Interval History: no further bleeding Physical Exam 2 Exam: Exam: General: AO X 3, no acute distress Resp: CTA bilateral, no accessory muscles used CVS: S1,S2,slow GI: soft, non tender, non distended Neuro: motor grossly intact, alert Psych: appropriate affect, appropriate insight Vital Signs: Vital Signs: Last Vital Signs Temp 98.0 F 12/16/24 08:03 Pulse 27 L 12/16/24 08:04 Resp 14 12/16/24 08:04 BP 144/56 H 12/16/24 08:03 Pulse Ox 96 12/16/24 08:04 O2 Del Method Room Air 12/16/24 08:04 BMI result Body Mass Index 25.7 Objective Data Active Medications Acetaminophen (Acetaminophen 325 Mg Tablet) 650 mg PO Q6H PRN PRN Reason: Pain, Mild 1-3,fever,headache Atorvastatin Calcium (Atorvastatin Calcium 20 Mg Tablet) 20 mg PO BEDTIME [facility] Benzonatate (Benzonatate 100 Mg Capsule) 100 mg PO TID PRN PRN Reason: Cough Last Admin: 12/16/24 04:40 Dose: 100 mg Documented By: JUANCARLOS Calcium Carbonate (Calcium Carbonate 750 Mg Tab.Chew) 750 mg PO Q4H PRN PRN Reason: Heartburn Dextrose (Dextrose 50 % 25 Gm/50 Ml Syringe) 25 gm IVPUSH Q15M PRN; Protocol PRN Reason: per Hypoglycemia Standing Ord. Finasteride (Finasteride 5 Mg Tablet) 5 mg PO DAILY [facility] Last Admin: 12/16/24 10:16 Dose: 5 mg Documented By: TEETEE Fluticasone/Vilanterol (Fluticasone/Vilanterol 100/25 Blst.W.Dev) 1 puff INHALE RDAILY [facility] Glucose (Glucose Gel 15 Gm Gel..Gram.) 15 gm PO Q15M PRN; Protocol PRN Reason: per Hypoglycemia Standing Ord. Lactated Ringer's (Lr) 1,000 mls @ 100 mls/hr IVCONT .Q10H [facility] Last Admin: 12/16/24 10:17 Dose: 100 mls/hr Documented By: TEETEE Insulin Human Lispro (Insulin Lispro 100 Unit/Ml 3 Ml Vial) 0 unit SUBCUT QIDACHS [facility]; Protocol Last Admin: 12/16/24 07:11 Dose: Not Given Documented By: TEETEE Non-Admin Reason: NPO Magnesium Hydroxide (Milk Of Magnesia 30 Ml Oral.Susp) 30 ml PO DAILY PRN PRN Reason: Constipation Melatonin (Melatonin 3 Mg Tablet) 6 mg PO BEDTIME PRN PRN Reason: Insomnia Pantoprazole Sodium (Pantoprazole Sodium 40 Mg/10 Ml Vial) 40 mg IVPUSH BID@0630,1630 [facility] Sodium Chloride (0.9 % Sodium Chloride Flush 3 Ml Syringe) 3 ml IVFLUSH QSHIFT [facility] Last Admin: 12/16/24 07:11 Dose: Not Given Documented By: TEETEE Non-Admin Reason: IV Running Vitamin D (Cholecalciferol (Vitamin D3) 25 Mcg Tablet) 50 mcg PO DAILY [facility] Last Admin: 12/16/24 10:16 Dose: 50 mcg Documented By: TEETEE Labs 12/16/24 05:34 12/16/24 05:34 Labs: Laboratory Results - last 24 hr 12/15/24 12/15/24 12/15/24 18:15 22:28 22:50 MCV 84.8 MCH 26.9 L MCHC 31.7 RDW 15.1 Plt Count 233 D MPV 11.1 Immature Gran % (Auto) 0.3 Neut % (Auto) 63.4 Lymph % (Auto) 21.8 [place] % (Auto) 5.2 Eos % (Auto) 8.8 H Baso % (Auto) 0.5 Lymph # (Auto) 2.7 [place] # (Auto) 0.7 Eos # (Auto) 1.1 H Baso # (Auto) 0.1 Abs Immat Gran (auto) 0.04 H Absolute Neuts (auto) 8.0 Absolute Nucleated RBC 0.000 Nucleated RBC % (auto) 0.0 PT 12.6 H INR 1.1 Anion Gap 13 Estim Creat Clear Calc 36.6 Estimated GFR 51 POC Glucose Random Glucose 131 H Calcium 9.0 D Magnesium 2.2 Total Bilirubin 0.1 Direct Bilirubin < 0.2 AST 24 ALT 14 Alkaline Phosphatase 65 Total Protein 6.5 Albumin 3.5 Lipase 17 Stool Occult Blood NEGATIVE Blood Type O Negative Antibody Screen NEGATIVE 12/16/24 12/16/24 05:34 07:10 MCV 85.1 MCH 26.7 L MCHC 31.3 RDW 15.1 Plt Count 230 MPV 10.3 Immature Gran % (Auto) 0.2 Neut % (Auto) 59.5 Lymph % (Auto) 23.7 [place] % (Auto) 5.4 Eos % (Auto) 10.7 H Baso % (Auto) 0.5 Lymph # (Auto) 2.4 [place] # (Auto) 0.5 Eos # (Auto) 1.1 H Baso # (Auto) 0.1 Abs Immat Gran (auto) 0.02 Absolute Neuts (auto) 5.9 Absolute Nucleated RBC 0.000 Nucleated RBC % (auto) 0.0 PT INR Anion Gap 12 Estim Creat Clear Calc 38.3 Estimated GFR 54 POC Glucose 72 Random Glucose 66 Calcium 9.0 Magnesium Total Bilirubin 0.2 Direct Bilirubin AST 21 ALT 14 Alkaline Phosphatase 60 Total Protein 6.4 L Albumin 3.8 Lipase Stool Occult Blood Blood Type Antibody Screen Assessment and Plan (1) 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: Status: Acute Plan 84M PMH diabetes, hypertension, hyperlipidemia, COPD, CVA, CKD 3, GERD, Mobitz 1 presented with melena Melena Hold aspirin, IV ppi, GI eval, monitor hemoglobin Mobitz 1 with significant bradycardia Asymptomatic, improves with ambulation Continue to monitor, avoid AV suhail blockade Diabetes Insulin sliding scale BPH Finasteride CKD 3 Stable DVT prophylaxis-mechanical due to melena Full code reason for continued hospitalization:working up melena Quality Stroke Does the patient have a stroke diagnosis?: Yes Reason for No Anti-thrombotic by Day Two: N/A - Med Ordered VTE Prior VTE?: No VTE Risk Level:: Medical - moderate - high VTE Device Contraindication: N/A - Device Ordered VTE Drug Contraindication: Treatment Not Indicated
[2024-12-16 12:55] LABS: Glucose, Whole Blood 84 mg/dL (60-115)
[2024-12-16 15:59] LABS: Glucose, Whole Blood 81 mg/dL (60-115)
[2024-12-16 17:49] LABS: MANUAL DIFF FLAG NO
[2024-12-16 17:50] LABS: Hematocrit 29.7 % (42.0-52.0); Hemoglobin 9.2 g/dl (14.0-18.0); Imm Gran Abs Auto 0.02 X10*3/uL (0.00-0.03); Imm Gran Pct Auto 0.3 % (0.0-0.4); Lymphocytes Absolute Auto 1.7 X10*3/uL (1.2-4.9); Mean Corpuscular HGB Conc 31.0 g/dl (31.0-36.0); Mean Corpuscular Hemoglobin 26.4 pg (27.0-33.0); Mean Corpuscular Volume 85.3 fL (80.0-98.0); NRBC Abs Auto 0.000 X10*3/uL (0.0-0.012); NRBC Pct Auto 0.0 /100WBC (0.0-0.2); Platelet Count 187 X10*3/uL (160-400); Red Blood Count 3.48 X10*6/uL (4.60-5.80); White Blood Count 7.2 X10*3/uL (4.8-10.8)
--- NOTE | 2024-12-16 18:26 | PM.EVENT ---
Event Note Date of Service: 12/16/24 Event Note: GI Consult-Full note dictated-History from patient and EMR Imp: 84 yo male presenting with several days of melena but without any UGI complaints. He is on an 81mg aspirin that he reports having started earlier this year, as well as a PPI. An initial stool specimen was Heme-negative but he has had a significant drop in Hgb with a slightly elevated BUN. He denies any NSAIDs, cigarettes, and EtOH use. An EGD in 2019 revealed a small hiatal hernia and a nonbleeding gastric AVM, and a colonoscopy at that time was negative. Diff dx: Bleeding from PUD, the gastric AVM, gastritis, or duodenitis. Rec: EGD 12/17/24. Full consent has been obtained from him for ths including risks of bleeding and perforation. Continue IV PPI, F/U Hgb, and transfuse as needed. D/W patient in detail and he is comfortable with this plan. Thanks. Time Spent With Patient Time: Total time managing care of this patient today ____ minutes.
--- NOTE | 2024-12-16 18:41 | MHC.SHP ---
Pre-Procedural Eval Section A - 24 Hr Update-Section A only Date of Service: 12/16/24 The patient is an INPATIENT: Yes The patient has been examined within 24 hours of the surgical procedure. The History & Physical has been completed within 30 days and I have reviewed it.: Yes Section B - Complete if H&P > 30 days Chief Complaint: Melena Allergies: Allergies Allergy/AdvReac Type Severity Reaction Status Date / Time No Known Allergies (No Known Allergy Verified 12/15/24 17:45 Allergies*) Plan I have reviewed the history and physical and performed a pertinent physical examination on my patient. No changes have occurred unless specified. Time Spent With Patient Time: Total time managing care of this patient today ____ minutes.
[2024-12-16 20:15] LABS: Glucose, Whole Blood 140 mg/dL (60-115)
[2024-12-16] MEDS: 0.9 % Sodium Chloride Flush 3 ML SYRINGE IVFLUSH (20:35)
[2024-12-16 21:06] LABS: MANUAL DIFF FLAG NO
[2024-12-16 21:08] LABS: Hematocrit 25.5 % (42.0-52.0); Hemoglobin 8.3 g/dl (14.0-18.0); Imm Gran Abs Auto 0.03 X10*3/uL (0.00-0.03); Imm Gran Pct Auto 0.5 % (0.0-0.4); Lymphocytes Absolute Auto 1.6 X10*3/uL (1.2-4.9); Mean Corpuscular HGB Conc 32.5 g/dl (31.0-36.0); Mean Corpuscular Hemoglobin 27.0 pg (27.0-33.0); Mean Corpuscular Volume 83.1 fL (80.0-98.0); NRBC Abs Auto 0.000 X10*3/uL (0.0-0.012); NRBC Pct Auto 0.0 /100WBC (0.0-0.2); Platelet Count 162 X10*3/uL (160-400); Red Blood Count 3.07 X10*6/uL (4.60-5.80); White Blood Count 6.6 X10*3/uL (4.8-10.8)
--- NOTE | 2024-12-16 22:18 | CONS_ITS ---
DATE OF SERVICE: 12/16/2024 REASON FOR CONSULTATION: Melena and anemia. HISTORY OF PRESENT ILLNESS: The patient is an 84-year-old male, known to me from previous office visits for predominantly issues with diarrhea. He describes having started aspirin earlier this year, but is not entirely sure why. He noticed the onset of black and liquid stool over the past 3 days or so. He denies any history of this. He has had a history of intermittent diarrhea, but not with any sign of bleeding such as hematochezia or melena. The patient did have an upper endoscopy with me in 2019 with the finding of a small nonbleeding gastric AVM and a small hiatal hernia. A colonoscopy at that same time was unremarkable. He does not use any NSAIDs, alcohol, nor tobacco. He has not been using any Pepto-Bismol nor iron. In the ER, he was found to have black stool on rectal exam, but this has been Hemoccult negative. However, his hemoglobin on admission last evening was 12.2 and this morning was 11.3. A followup hemoglobin at 5 p.m. today was down to 9.2. He has had a slightly elevated BUN of 28 yesterday and 25 today. Since admission, he has otherwise been comfortable. He denies any significant bowel movement since he has been on the medical floor. He denies any significant heartburn, dysphagia, nausea, vomiting, nor anorexia. He denies any abdominal pain, jaundice, or weight loss. He reports that his bowel movements had otherwise been brown in color and without any sign of melena nor hematochezia up until the past few days. MEDICATIONS: At home included aspirin 81 mg, Breo Ellipta inhaler, vitamin D, finasteride, glipizide, lisinopril, pantoprazole, and simvastatin. PAST MEDICAL HISTORY: [id number] diabetes mellitus. Hypertension. Known gastric AVM seen on upper endoscopy in 2019. Intermittent diarrhea. Hypertension. Stroke. He denies a history of IA. He has had a history of COPD, as well as diabetes. He reports surgeries including tonsils, cholecystectomy, and appendectomy. He does have a history of Mobitz type 1 as well. He reports that he has seen Dr. Ornelas for this. He has benign prostatic hypertrophy. He describes a history of prostate cancer, for which he was treated with hormones. REVIEW OF SYSTEMS: CONSTITUTIONAL: He has been feeling fairly well and has a good appetite. SKIN: No rash. No pruritus. CARDIAC: No chest pain. PULMONARY: No cough. No hemoptysis. GI: As above. URINARY: No dysuria. No hematuria. FAMILY HISTORY: Noncontributory and specifically negative for any GI malignancies. PHYSICAL EXAMINATION: GENERAL: The patient is a pleasant, alert, comfortable appearing male. SKIN: Warm and dry. HEENT: Anicteric sclerae. Moist mucous membranes. NECK: Supple. ABDOMEN: Soft, nondistended, nontender without palpable mass. LABORATORY DATA: As above. Hemoglobin at 5 p.m. was 9.2 with a normal MCV. Platelets 187,000. PT 12.6 with INR 1.1. Normal electrolytes. Most recent BUN was 25 and creatinine 1.3. LFTs were normal. Lipase 17. CT of the abdomen and pelvis describes a hiatal hernia and evidence of some hyperdensity in the rectum and distal sigmoid that was felt to be guest services representative of blood. IMPRESSION: Given the patient's clinical history, this seems consistent with an upper gastrointestinal bleed, given the associated report of melena and drop in hemoglobin, as well as a slightly elevated BUN. At this point, does not show any signs of active bleeding. This may represent a gastrointestinal bleed from peptic ulcer disease, his previously seen gastric arteriovenous malformation in 2019, and other possibilities such as gastritis or duodenitis. I doubt this represents a neoplasm. At this point, I would recommend upper endoscopy tomorrow with monitored anesthesia care. This will be done either by myself or Dr. Anderson. Full consent was obtained from him for this, including risks of bleeding and perforation. He will have followup laboratories this evening and tomorrow in regard to the hemoglobin, to be sure things are stable. Full consent has been obtained from him for the upper endoscopy, including risks of bleeding and perforation. This has been discussed with the patient in detail and he is comfortable with the plan. Thank you for the consultation. MD MEAGAN Cuevas/LYNN / [phone]
[2024-12-17] VITALS (9 sets, daily range): BP systolic 108–168; BP diastolic 54–70; PULSE 56–66; RESP 16–20; TEMP 36.1–36.9; O2SAT 92–97
--- NOTE | 2024-12-17 01:24 | PM.EVENT ---
Event Note Date of Service: 12/17/24 Event Note: Bradycardia: Patient started has been in 40s. EKG showed slow AFib. Also suspected heart block. Sent EKG strip Dr. Alcocer who reviewed the EKGs and mentioned it is chronic and no intervention needed. Patient remained asymptomatic. Time Spent With Patient Time: Total time managing care of this patient today ____ minutes.
[2024-12-17] MEDS: Lactated Ringers 1,000 ML 100 ML IVCONT ×2 (06:20→20:32)
[2024-12-17 07:15] LABS: Glucose, Whole Blood 78 mg/dL (60-115)
[2024-12-17 07:15] LABS: Hematocrit 32.8 % (42.0-52.0); Hemoglobin 10.7 g/dl (14.0-18.0); Mean Corpuscular HGB Conc 32.6 g/dl (31.0-36.0); Mean Corpuscular Hemoglobin 26.6 pg (27.0-33.0); Mean Corpuscular Volume 81.6 fL (80.0-98.0); NRBC Abs Auto 0.000 X10*3/uL (0.0-0.012); NRBC Pct Auto 0.0 /100WBC (0.0-0.2); Platelet Count 214 X10*3/uL (160-400); Red Blood Count 4.02 X10*6/uL (4.60-5.80); White Blood Count 7.4 X10*3/uL (4.8-10.8)
[2024-12-17 07:30] LABS: Anion Gap 12 (12-20); Blood Urea Nitrogen 19 mg/dL (9-16); Calcium 8.6 mg/dL (8.4-10.2); Carbon Dioxide 23 mmol/L (22-29); Chloride 110 mmol/L (96-108); Creatinine Clr Calc Pharmacy 38.9; Estimated Glomerular Filt Rate 55; Potassium 3.8 mmol/L (3.3-5.1); Sodium 141 mmol/L (135-145)
[2024-12-17] MEDS: Fluticasone/Vilanterol 100/25 BLST.W.DEV 1 PUFF INHALE (07:50)
--- NOTE | 2024-12-17 08:26 | HO.ANESPROP2 ---
HPI - Anesthesia Eval Consult details Narrative: 84 yr old male for EGD w/ gold probe Denies CP, SOB with light walking. [facility] cardiology consult 12/06/24: Known prior sinus bradycardia suggestive of sinoatrial suhail dysfunction. Again patient has no symptoms related to it. No pacing therapy required. Avoid rate lowering medications. Most recent EKG with afib 12/16/24: hospitalist reached out to [facility] cards who commented, Sent EKG strip Dr. Alcocer who reviewed the EKGs and mentioned it is chronic and no intervention needed. COPD: currently with cough, mildly productive; follows with [facility] pulmonary, last visit 07/2024: COPD WITH ELEMENT OF MILD ASTHMA, IS CHRONIC AND REMAINS WELL CONTROLLED AND STABLE. THERE HAS BEEN NO ACUTE EXACERBATION IN THE LAST 6 MONTHS Type 2 DM: well controlled Stage IIIB CKD: renal function at baseline per 11/2024 follow up PAD: stable claudication per vascular follow up 04/2024 [facility] Active Problems Active Problems: All Active Problems Gastrointestinal hemorrhage with melena (Acute) 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 (Acute) Colitis (Acute) Hyperkalemia (Acute) SOB (shortness of breath) on exertion (Acute) Prostate cancer (Acute) Abnormal digital rectal exam (Acute) Elevated PSA (Acute) PAD (peripheral artery disease) (Acute) Cough (Acute) Hypersomnia (Acute) COPD exacerbation (Acute) COPD (chronic obstructive pulmonary disease) (Acute) Allergic rhinitis (Acute) Past Medical History Medical History (Updated 12/17/24 @ 05:55 by Ariana Watts RN) Diabetes Bradycardia Bronchitis Bifascicular block Sinoatrial node dysfunction CKD (chronic kidney disease) stage 3, GFR 30-59 ml/min Cough Hypersomnia Stroke COPD exacerbation COPD (chronic obstructive pulmonary disease) Allergic rhinitis Family History Family History Mother No problems noted. Father Heart disease Family history of problems with anesthesia: No Surgical History Surgical History Hx of cataract surgery (~09/2023) S/P tonsillectomy and adenoidectomy Hx of cholecystectomy History of appendectomy History of Problems with Anesthesia: No Social History Social History Household Members: Spouse Housing: House Do you presently have visiting nurse or other home services: Yes Alcohol intake: former Patient Tobacco Use Status: Former Tobacco user Years Smoked: 40 +/- service: Yes Meds Allergies Allergy/AdvReac Type Severity Reaction Status Date / Time No Known Allergies (No Known Allergy Verified 12/15/24 17:45 Allergies*) Active Medications: Current Medications Acetaminophen (Acetaminophen 325 Mg Tablet) 650 mg PO Q6H PRN PRN Reason: Pain, Mild 1-3,fever,headache Atorvastatin Calcium (Atorvastatin Calcium 20 Mg Tablet) 20 mg PO BEDTIME [facility] Last Admin: 12/16/24 20:34 Dose: 20 mg Benzonatate (Benzonatate 100 Mg Capsule) 100 mg PO TID PRN PRN Reason: Cough Last Admin: 12/16/24 04:40 Dose: 100 mg Calcium Carbonate (Calcium Carbonate 750 Mg Tab.Chew) 750 mg PO Q4H PRN PRN Reason: Heartburn Dextrose (Dextrose 50 % 25 Gm/50 Ml Syringe) 25 gm IVPUSH Q15M PRN; Protocol PRN Reason: per Hypoglycemia Standing Ord. Finasteride (Finasteride 5 Mg Tablet) 5 mg PO DAILY [facility] Last Admin: 12/16/24 10:16 Dose: 5 mg Fluticasone/Vilanterol (Fluticasone/Vilanterol 100/25 Blst.W.Dev) 1 puff INHALE RDAILY [facility] Last Admin: 12/17/24 07:50 Dose: 1 puff Glucose (Glucose Gel 15 Gm Gel..Gram.) 15 gm PO Q15M PRN; Protocol PRN Reason: per Hypoglycemia Standing Ord. Lactated Ringer's (Lr) 1,000 mls @ 100 mls/hr IVCONT .Q10H [facility] Last Admin: 12/17/24 06:20 Dose: 100 mls/hr Insulin Human Lispro (Insulin Lispro 100 Unit/Ml 3 Ml Vial) 0 unit SUBCUT QIDACHS [facility]; Protocol Last Admin: 12/17/24 07:50 Dose: Not Given Magnesium Hydroxide (Milk Of Magnesia 30 Ml Oral.Susp) 30 ml PO DAILY PRN PRN Reason: Constipation Melatonin (Melatonin 3 Mg Tablet) 6 mg PO BEDTIME PRN PRN Reason: Insomnia Pantoprazole Sodium (Pantoprazole Sodium 40 Mg/10 Ml Vial) 40 mg IVPUSH BID@0630,1630 [facility] Last Admin: 12/17/24 06:20 Dose: 40 mg Sodium Chloride (0.9 % Sodium Chloride Flush 3 Ml Syringe) 3 ml IVFLUSH QSHIFT [facility] Last Admin: 12/16/24 20:35 Dose: 3 ml Vitamin D (Cholecalciferol (Vitamin D3) 25 Mcg Tablet) 50 mcg PO DAILY [facility] Last Admin: 12/16/24 10:16 Dose: 50 mcg Home Medications ?Medication ?Instructions ?Recorded ?Confirmed ?Last Taken ?Type simvastatin 40 mg tablet 40 mg PO BEDTIME 03/13/20 12/16/24 12/15/24 History glipizide 5 mg tablet, extended 5 mg PO DAILY 10/08/22 12/16/24 12/15/24 History release 24 hr lisinopril 10 1 tab PO DAILY 10/08/22 12/16/24 12/15/24 History mg-hydrochlorothiazide 12.5 mg tablet Held on 12/06/24. Instructions: Resume on 12/08/24. once PO intake is optimal, resume BP medication, closely monitor your BP while you are holding this medication, IF BP is trending high, you can resume it sooner cholecalciferol (vitamin D3) 50 50 mcg PO DAILY 05/11/24 12/16/24 12/15/24 History mcg (2,000 unit) capsule aspirin 81 mg tablet,delayed 81 mg PO DAILY 11/30/24 12/16/24 12/15/24 History release pantoprazole 40 mg tablet,delayed 40 mg PO DAILY 12/16/24 12/16/24 12/15/24 History release Exam Height,Weight and Vital Signs: Height 5 ft 6 in Weight 72.3 kg Last Vital Signs Temp 96.9 F 12/17/24 07:27 Pulse 64 12/17/24 07:52 Resp 18 12/17/24 07:52 BP 168/70 H 12/17/24 07:27 Pulse Ox 94 12/17/24 07:27 O2 Del Method Room Air 12/17/24 07:27 Pertinent Lab Results Pertinent Lab Results: Laboratory Tests 12/15/24 12/15/24 12/15/24 18:15 22:28 22:50 WBC 12.5 H RBC 4.54 L Hgb 12.2 L Hct 38.5 L MCV 84.8 MCH 26.9 L MCHC 31.7 RDW 15.1 Plt Count 233 D MPV 11.1 Immature Gran % (Auto) 0.3 Neut % (Auto) 63.4 Lymph % (Auto) 21.8 [place] % (Auto) 5.2 Eos % (Auto) 8.8 H Baso % (Auto) 0.5 Lymph # (Auto) 2.7 [place] # (Auto) 0.7 Eos # (Auto) 1.1 H Baso # (Auto) 0.1 Abs Immat Gran (auto) 0.04 H Absolute Neuts (auto) 8.0 Absolute Nucleated RBC 0.000 Nucleated RBC % (auto) 0.0 PT 12.6 H INR 1.1 Sodium 139 Potassium 4.3 Chloride 111 H Carbon Dioxide 19 L Anion Gap 13 BUN 28 H Creatinine 1.33 Estim Creat Clear Calc 36.6 Estimated GFR 51 POC Glucose Random Glucose 131 H Calcium 9.0 D Magnesium 2.2 Total Bilirubin 0.1 Direct Bilirubin < 0.2 AST 24 ALT 14 Alkaline Phosphatase 65 Troponin I High Sens 7.9 Total Protein 6.5 Albumin 3.5 Lipase 17 Stool Occult Blood NEGATIVE Blood Type O Negative Antibody Screen NEGATIVE 12/16/24 12/16/24 12/16/24 05:34 07:10 12:52 WBC 10.0 RBC 4.24 L Hgb 11.3 L Hct 36.1 L MCV 85.1 MCH 26.7 L MCHC 31.3 RDW 15.1 Plt Count 230 MPV 10.3 Immature Gran % (Auto) 0.2 Neut % (Auto) 59.5 Lymph % (Auto) 23.7 [place] % (Auto) 5.4 Eos % (Auto) 10.7 H Baso % (Auto) 0.5 Lymph # (Auto) 2.4 [place] # (Auto) 0.5 Eos # (Auto) 1.1 H Baso # (Auto) 0.1 Abs Immat Gran (auto) 0.02 Absolute Neuts (auto) 5.9 Absolute Nucleated RBC 0.000 Nucleated RBC % (auto) 0.0 PT INR Sodium 142 Potassium 3.4 D Chloride 109 H Carbon Dioxide 24 Anion Gap 12 BUN 25 H Creatinine 1.27 Estim Creat Clear Calc 38.3 Estimated GFR 54 POC Glucose 72 84 Random Glucose 66 Calcium 9.0 Magnesium Total Bilirubin 0.2 Direct Bilirubin AST 21 ALT 14 Alkaline Phosphatase 60 Troponin I High Sens Total Protein 6.4 L Albumin 3.8 Lipase Stool Occult Blood Blood Type Antibody Screen 12/16/24 12/16/24 12/16/24 15:48 17:19 20:11 WBC 7.2 RBC 3.48 L Hgb 9.2 L Hct 29.7 L MCV 85.3 MCH 26.4 L MCHC 31.0 RDW 15.0 Plt Count 187 MPV 10.5 Immature Gran % (Auto) 0.3 Neut % (Auto) 59.6 Lymph % (Auto) 23.2 [place] % (Auto) 6.0 Eos % (Auto) 10.3 H Baso % (Auto) 0.6 Lymph # (Auto) 1.7 [place] # (Auto) 0.4 Eos # (Auto) 0.7 H Baso # (Auto) 0.0 Abs Immat Gran (auto) 0.02 Absolute Neuts (auto) 4.3 Absolute Nucleated RBC 0.000 Nucleated RBC % (auto) 0.0 PT INR Sodium Potassium Chloride Carbon Dioxide Anion Gap BUN Creatinine Estim Creat Clear Calc Estimated GFR POC Glucose 81 140 H Random Glucose Calcium Magnesium Total Bilirubin Direct Bilirubin AST ALT Alkaline Phosphatase Troponin I High Sens Total Protein Albumin Lipase Stool Occult Blood Blood Type Antibody Screen 12/16/24 12/17/24 12/17/24 21:02 06:53 07:05 WBC 6.6 7.4 RBC 3.07 L 4.02 L D Hgb 8.3 L 10.7 L D Hct 25.5 L 32.8 L D MCV 83.1 81.6 MCH 27.0 26.6 L MCHC 32.5 32.6 RDW 15.0 15.0 Plt Count 162 214 D MPV 10.1 10.6 Immature Gran % (Auto) 0.5 H Neut % (Auto) 58.5 Lymph % (Auto) 23.9 [place] % (Auto) 6.8 Eos % (Auto) 9.8 H Baso % (Auto) 0.5 Lymph # (Auto) 1.6 [place] # (Auto) 0.5 Eos # (Auto) 0.7 H Baso # (Auto) 0.0 Abs Immat Gran (auto) 0.03 Absolute Neuts (auto) 3.9 Absolute Nucleated RBC 0.000 0.000 Nucleated RBC % (auto) 0.0 0.0 PT INR Sodium 141 Potassium 3.8 Chloride 110 H Carbon Dioxide 23 Anion Gap 12 BUN 19 H Creatinine 1.25 Estim Creat Clear Calc 38.9 Estimated GFR 55 POC Glucose 78 Random Glucose 91 Calcium 8.6 Magnesium Total Bilirubin Direct Bilirubin AST ALT Alkaline Phosphatase Troponin I High Sens Total Protein Albumin Lipase Stool Occult Blood Blood Type Antibody Screen Narrative Narrative: EKG 12/16/24 Vent. Rate : 45 BPM Atrial Rate : * BPM P-R Int : * ms QRS Dur : 134 ms QT Int : 520 ms P-R-T Axes : * -60 -30 degrees QTcB Int : 449 ms Atrial fibrillation with slow ventricular response Left axis deviation Right bundle branch block Inferior infarct (cited on or before 05-Dec-2024) Abnormal ECG When compared with ECG of 05-Dec-2024 00:24, Atrial fibrillation has replaced Junctional rhythm ECHO 12/06/24 Conclusions: - 1. Normal LV ejection fraction of 65-70% 2. Normal cardiac valvular Dopplers 3. Normal RV systolic pressure 4. No gross pericardial effusion Airway Mallampati Class: III TM Dist: >3cm Neck ROM: Full Denture: Upper and Lower Loose/Missing/Broken Teeth: No Heart: RRR Lungs: crepitations b/l Assessment and Plan Final Anesthetic Review Family History of Problems with Anesthesia: No History of Problems with Anesthesia: No
--- NOTE | 2024-12-17 09:00 | P.PNIM_ITS ---
Subjective Subjective Date of Service: 12/17/24 Interval History: no further bleeding Physical Exam 2 Exam: Exam: General: AO X 3, no acute distress Resp: CTA bilateral, no accessory muscles used CVS: S1,S2,slow GI: soft, non tender, non distended Neuro: motor grossly intact, alert Psych: appropriate affect, appropriate insight Vital Signs: Vital Signs: Last Vital Signs Temp 96.9 F 12/17/24 07:27 Pulse 64 12/17/24 07:52 Resp 18 12/17/24 07:52 BP 168/70 H 12/17/24 07:27 Pulse Ox 94 12/17/24 07:27 O2 Del Method Room Air 12/17/24 07:27 BMI result Body Mass Index 25.7 Objective Data Active Medications Acetaminophen (Acetaminophen 325 Mg Tablet) 650 mg PO Q6H PRN PRN Reason: Pain, Mild 1-3,fever,headache Atorvastatin Calcium (Atorvastatin Calcium 20 Mg Tablet) 20 mg PO BEDTIME [facility] Last Admin: 12/16/24 20:34 Dose: 20 mg Documented By: FRANKY Benzonatate (Benzonatate 100 Mg Capsule) 100 mg PO TID PRN PRN Reason: Cough Last Admin: 12/16/24 04:40 Dose: 100 mg Documented By: JUANCARLOS Calcium Carbonate (Calcium Carbonate 750 Mg Tab.Chew) 750 mg PO Q4H PRN PRN Reason: Heartburn Dextrose (Dextrose 50 % 25 Gm/50 Ml Syringe) 25 gm IVPUSH Q15M PRN; Protocol PRN Reason: per Hypoglycemia Standing Ord. Finasteride (Finasteride 5 Mg Tablet) 5 mg PO DAILY [facility] Last Admin: 12/16/24 10:16 Dose: 5 mg Documented By: TEETEE Fluticasone/Vilanterol (Fluticasone/Vilanterol 100/25 Blst.W.Dev) 1 puff INHALE RDAILY [facility] Last Admin: 12/17/24 07:50 Dose: 1 puff Documented By: BONNY Glucose (Glucose Gel 15 Gm Gel..Gram.) 15 gm PO Q15M PRN; Protocol PRN Reason: per Hypoglycemia Standing Ord. Lactated Ringer's (Lr) 1,000 mls @ 100 mls/hr IVCONT .Q10H [facility] Last Admin: 12/17/24 06:20 Dose: 100 mls/hr Documented By: FRANKY Insulin Human Lispro (Insulin Lispro 100 Unit/Ml 3 Ml Vial) 0 unit SUBCUT QIDACHS [facility]; Protocol Last Admin: 12/17/24 07:50 Dose: Not Given Documented By: SHAVONNE Non-Admin Reason: No Insulin Coverage Magnesium Hydroxide (Milk Of Magnesia 30 Ml Oral.Susp) 30 ml PO DAILY PRN PRN Reason: Constipation Melatonin (Melatonin 3 Mg Tablet) 6 mg PO BEDTIME PRN PRN Reason: Insomnia Pantoprazole Sodium (Pantoprazole Sodium 40 Mg/10 Ml Vial) 40 mg IVPUSH BID@0630,1630 [facility] Last Admin: 12/17/24 06:20 Dose: 40 mg Documented By: FRANKY Sodium Chloride (0.9 % Sodium Chloride Flush 3 Ml Syringe) 3 ml IVFLUSH QSHIFT [facility] Last Admin: 12/16/24 20:35 Dose: 3 ml Documented By: FRANKY Vitamin D (Cholecalciferol (Vitamin D3) 25 Mcg Tablet) 50 mcg PO DAILY [facility] Last Admin: 12/16/24 10:16 Dose: 50 mcg Documented By: TEETEE Labs 12/17/24 06:53 12/17/24 06:53 Labs: Laboratory Results - last 24 hr 12/16/24 12/16/24 12/16/24 12:52 15:48 17:19 MCV 85.3 MCH 26.4 L MCHC 31.0 RDW 15.0 Plt Count 187 MPV 10.5 Immature Gran % (Auto) 0.3 Neut % (Auto) 59.6 Lymph % (Auto) 23.2 [place] % (Auto) 6.0 Eos % (Auto) 10.3 H Baso % (Auto) 0.6 Lymph # (Auto) 1.7 [place] # (Auto) 0.4 Eos # (Auto) 0.7 H Baso # (Auto) 0.0 Abs Immat Gran (auto) 0.02 Absolute Neuts (auto) 4.3 Absolute Nucleated RBC 0.000 Nucleated RBC % (auto) 0.0 Anion Gap Estim Creat Clear Calc Estimated GFR POC Glucose 84 81 Random Glucose Calcium 12/16/24 12/16/24 12/17/24 20:11 21:02 06:53 MCV 83.1 81.6 MCH 27.0 26.6 L MCHC 32.5 32.6 RDW 15.0 15.0 Plt Count 162 214 D MPV 10.1 10.6 Immature Gran % (Auto) 0.5 H Neut % (Auto) 58.5 Lymph % (Auto) 23.9 [place] % (Auto) 6.8 Eos % (Auto) 9.8 H Baso % (Auto) 0.5 Lymph # (Auto) 1.6 [place] # (Auto) 0.5 Eos # (Auto) 0.7 H Baso # (Auto) 0.0 Abs Immat Gran (auto) 0.03 Absolute Neuts (auto) 3.9 Absolute Nucleated RBC 0.000 0.000 Nucleated RBC % (auto) 0.0 0.0 Anion Gap 12 Estim Creat Clear Calc 38.9 Estimated GFR 55 POC Glucose 140 H Random Glucose 91 Calcium 8.6 12/17/24 07:05 MCV MCH MCHC RDW Plt Count MPV Immature Gran % (Auto) Neut % (Auto) Lymph % (Auto) [place] % (Auto) Eos % (Auto) Baso % (Auto) Lymph # (Auto) [place] # (Auto) Eos # (Auto) Baso # (Auto) Abs Immat Gran (auto) Absolute Neuts (auto) Absolute Nucleated RBC Nucleated RBC % (auto) Anion Gap Estim Creat Clear Calc Estimated GFR POC Glucose 78 Random Glucose Calcium Assessment and Plan (1) 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: Status: Acute Plan 84M PMH diabetes, hypertension, hyperlipidemia, COPD, CVA, CKD 3, GERD, Mobitz 1 presented with melena Melena Holding aspirin IV ppi, GI appreciated plan for egd today, monitor hemoglobin - stable Mobitz 1 with significant bradycardia Asymptomatic, improves with ambulation Continue to monitor, avoid AV suhail blockade Diabetes Insulin sliding scale BPH Finasteride CKD 3 Stable DVT prophylaxis-mechanical due to melena Full code reason for continued hospitalization:working up melena Quality Stroke Does the patient have a stroke diagnosis?: Yes Reason for No Anti-thrombotic by Day Two: N/A - Med Ordered VTE Prior VTE?: No VTE Risk Level:: Medical - moderate - high VTE Device Contraindication: N/A - Device Ordered VTE Drug Contraindication: Treatment Not Indicated
--- NOTE | 2024-12-17 09:54 | PC.NURSE ---
patient leaving this unit for his EGD procedure. Spoke to RN in short stay regarding his HR and possible heart block per Dari Warren, cardiology was spoken to yesterday and he has felt to have chronic Mobitz type 1. Dari will show cardiology when he rounds.
[2024-12-17 10:11] LABS: Glucose, Whole Blood 88 mg/dL (60-115)
--- NOTE | 2024-12-17 10:22 | PC.NURSE ---
automotive design layout drafter at bedside with patient
[2024-12-17] MEDS: Albuterol Sulfate (0.083%) 2.5 MG/3 ML VIAL.NEB INHALE (10:42)
--- NOTE | 2024-12-17 10:44 | PC.NURSE ---
pt cancelled secondary to block de brett aware at bedside with patient. pt denies any dizziness denies c/p
--- NOTE | 2024-12-17 10:51 | PC.NURSE ---
floor rn aware pt back to room telemonitor working per floor rn
--- NOTE | 2024-12-17 11:03 | PM.EVENT ---
Event Note Date of Service: 12/17/24 Event Note: GI EGD cancelled secondary to cardiac issues and absence of active bleeding. Cardiology evaluation underway. Continue ppi, follow HCT. Time Spent With Patient Time: Total time managing care of this patient today ____ minutes.
[2024-12-17 11:14] LABS: Glucose, Whole Blood 93 mg/dL (60-115)
--- NOTE | 2024-12-17 11:33 | P.CONCA_ITS ---
History of Present Illness History of Present Illness Date of Service: 12/17/24 Chief complaint: Melena Narrative: This is a cardiology consultation regarding bradycardia. Generally seen by Dr. Ornelas in clinic. Last seen in June of this year. At that time, mentioned to have sinoatrial dysfunction and also bifascicular block. He is being monitored in clinic for this. Patient himself does not have any clear-cut symptoms. No known angina or shortness of breath or anything along those lines. No dizzy spells or syncopal episodes. Current admissions because of melena and in that setting, there is planned to go ahead with the EGD. However, we are consulted because of the bradycardia on telemetry. On review of strips, mostly Wenckebach type heart block. On a couple of occasions, possible more advanced heart block but difficult to say. However, patient himself has no symptoms from this. Review of Systems 2 Review of Systems: Yes all other systems are reviewed and are negative Constitutional: Constitutional: Reports as per HPI and Reports no additional constitutional complaints Eyes: Eyes: Reports as per HPI and Denies no additional eye complaints ENT: Denies system reviewed and no additional complaints, except as documented and Reports as per HPI Cardiovascular: Cardiovascular: Reports as per HPI, Reports no additional cardiovascular complaints, Denies acrocyanosis, Denies cool extremities, Denies chest pain, Denies leg edema, Denies lightheadedness, Denies palpitations and Denies dyspnea Respiratory: Respiratory: Reports as per HPI, Denies no additional respiratory complaints and Denies dyspnea Gastrointestinal: Gastrointestinal: Reports as per HPI and Denies no additional gastrointestinal complaints Genitourinary: Genitourinary: Reports no additional male genitourinary complaints and Reports as per HPI Musculoskeletal: Musculoskeletal: Reports no additional musculoskeletal complaints and Reports as per HPI Integumentary/Breasts: Skin/Breast: Reports system reviewed and no additional complaints, except as docu Neurologic: Reports system reviewed and no additional complaints, except as documented and Reports as per HPI Psychiatric: Psychiatric: Reports no additional psychiatric complaints and Reports as per HPI Endocrine: Endocrine: Reports no additional endocrine complaints, Reports as per HPI and Denies palpitations Hematologic/Lymphatic: Hematologic/Lymphatic: Reports no additional hematologic/lymphatic complaints and Reports as per HPI Allergic/Immunologic: Allergic/Immunologic: Reports no additional allergic/immunologic complaints and Reports as per HPI PMF Past Medical History Medical History (Updated 12/17/24 @ 11:36 by Josr Alcocer MD) Bifascicular block Diabetes Bradycardia Bronchitis Sinoatrial node dysfunction CKD (chronic kidney disease) stage 3, GFR 30-59 ml/min Cough Hypersomnia Stroke COPD exacerbation COPD (chronic obstructive pulmonary disease) Allergic rhinitis Family History Family History Mother No problems noted. Father Heart disease Surgical History Surgical History Hx of cataract surgery (~09/2023) S/P tonsillectomy and adenoidectomy Hx of cholecystectomy History of appendectomy Social History Social History Household Members: Spouse Housing: House Do you presently have visiting nurse or other home services: Yes Alcohol intake: former Comment: PT standby assist to Bathroom Patient Tobacco Use Status: Former Tobacco user Years Smoked: 40 +/- service: Yes Meds Allergies Allergy/AdvReac Type Severity Reaction Status Date / Time No Known Allergies (No Known Allergy Verified 12/15/24 17:45 Allergies*) Active Medications: Current Medications Acetaminophen (Acetaminophen 325 Mg Tablet) 650 mg PO Q6H PRN PRN Reason: Pain, Mild 1-3,fever,headache Albuterol Sulfate (Albuterol Sulfate (0.083%) 2.5 Mg/3 Ml Vial.Neb) 2.5 mg INHALE ONCE PRN PRN Reason: Shortness of Breath/Wheezing Last Admin: 12/17/24 10:42 Dose: 2.5 mg Atorvastatin Calcium (Atorvastatin Calcium 20 Mg Tablet) 20 mg PO BEDTIME [facility] Last Admin: 12/16/24 20:34 Dose: 20 mg Benzonatate (Benzonatate 100 Mg Capsule) 100 mg PO TID PRN PRN Reason: Cough Last Admin: 12/16/24 04:40 Dose: 100 mg Calcium Carbonate (Calcium Carbonate 750 Mg Tab.Chew) 750 mg PO Q4H PRN PRN Reason: Heartburn Dextrose (Dextrose 50 % 25 Gm/50 Ml Syringe) 25 gm IVPUSH Q15M PRN; Protocol PRN Reason: per Hypoglycemia Standing Ord. Finasteride (Finasteride 5 Mg Tablet) 5 mg PO DAILY [facility] Last Admin: 12/17/24 09:41 Dose: 5 mg Fluticasone/Vilanterol (Fluticasone/Vilanterol 100/25 Blst.W.Dev) 1 puff INHALE RDAILY [facility] Last Admin: 12/17/24 07:50 Dose: 1 puff Glucose (Glucose Gel 15 Gm Gel..Gram.) 15 gm PO Q15M PRN; Protocol PRN Reason: per Hypoglycemia Standing Ord. Lactated Ringer's (Lr) 1,000 mls @ 100 mls/hr IVCONT .Q10H [facility] Last Admin: 12/17/24 06:20 Dose: 100 mls/hr Insulin Human Lispro (Insulin Lispro 100 Unit/Ml 3 Ml Vial) 0 unit SUBCUT QIDACHS [facility]; Protocol Last Admin: 12/17/24 07:50 Dose: Not Given Magnesium Hydroxide (Milk Of Magnesia 30 Ml Oral.Susp) 30 ml PO DAILY PRN PRN Reason: Constipation Melatonin (Melatonin 3 Mg Tablet) 6 mg PO BEDTIME PRN PRN Reason: Insomnia Pantoprazole Sodium (Pantoprazole Sodium 40 Mg/10 Ml Vial) 40 mg IVPUSH BID@0630,1630 [facility] Last Admin: 12/17/24 06:20 Dose: 40 mg Sodium Chloride (0.9 % Sodium Chloride Flush 3 Ml Syringe) 3 ml IVFLUSH QSHIFT [facility] Last Admin: 12/17/24 09:41 Dose: Not Given Vitamin D (Cholecalciferol (Vitamin D3) 25 Mcg Tablet) 50 mcg PO DAILY [facility] Last Admin: 12/17/24 09:40 Dose: 50 mcg Home Medications ?Medication ?Instructions ?Recorded ?Confirmed ?Last Taken ?Type simvastatin 40 mg tablet 40 mg PO BEDTIME 03/13/2012/15/24 History glipizide 5 mg tablet, extended 5 mg PO DAILY 10/08/22 12/16/24 12/15/24 History release 24 hr lisinopril 10 1 tab PO DAILY 10/08/2211/2012/15/24 History mg-hydrochlorothiazide 12.5 mg tablet Held on 12/06/24. Instructions: Resume on 12/08/24. once PO intake is optimal, resume BP medication, closely monitor your BP while you are holding this medication, IF BP is trending high, you can resume it sooner cholecalciferol (vitamin D3) 50 50 mcg PO DAILY 12/16/24 12/15/24 History mcg (2,000 unit) capsule aspirin 81 mg tablet,delayed 81 mg PO DAILY 11/30/24 0 12/16/24 12/15/24 History release pantoprazole 40 mg tablet,delayed 40 mg PO DAILY 12/1612/16/24 12/15/24 History release Physical Exam 2 Vital Signs: Vital Signs: Last Vital Signs Temp 98.5 F 12/17/24 10:04 Pulse 60 12/17/24 10:04 Resp 18 12/17/24 10:04 BP 151/54 H 12/17/24 10:04 Pulse Ox 95 12/17/24 10:04 O2 Del Method Room Air 12/17/24 10:04 BMI result Body Mass Index 25.7 Const: General: comfortable and no acute distress O rientation/consciousness: patient oriented x3 HEENT: Other: Unremarkable Head: Yes normal to inspection Neck: Neck: Yes normal visual inspection Chest: Chest palpation & inspection: normal inspection of the chest Resp: Auscultation: clear to auscultation bilaterally Cardio: Palpation: normal PMI Heart sounds: S1 normal heart sound present, S2 normal heart sound present, no gallops, no murmurs and no rubs GI: Palpation (GI): Soft to palpation Back/Spine/Pelvis: Other: unremarkable Skin: General skin exam: no rashes or lesions noted Neuro: General: patient oriented x3 Extrem: General: Yes normal to inspection Psych: Mental Status: mental status grossly normal Objective Labs and Meds 12/17/24 06:53 12/17/24 06:53 Lab results: Laboratory Results - last 24 hr 12/16/24 12/16/24 12/16/24 12:52 15:48 17:19 WBC 7.2 RBC 3.48 L Hgb 9.2 L Hct 29.7 L MCV 85.3 MCH 26.4 L MCHC 31.0 RDW 15.0 Plt Count 187 MPV 10.5 Immature Gran % (Auto) 0.3 Neut % (Auto) 59.6 Lymph % (Auto) 23.2 [place] % (Auto) 6.0 Eos % (Auto) 10.3 H Baso % (Auto) 0.6 Lymph # (Auto) 1.7 [place] # (Auto) 0.4 Eos # (Auto) 0.7 H Baso # (Auto) 0.0 Abs Immat Gran (auto) 0.02 Absolute Neuts (auto) 4.3 Absolute Nucleated RBC 0.000 Nucleated RBC % (auto) 0.0 Sodium Potassium Chloride Carbon Dioxide Anion Gap BUN Creatinine Estim Creat Clear Calc Estimated GFR POC Glucose 84 81 Random Glucose Calcium 12/16/24 12/16/24 12/17/24 20:11 21:02 06:53 WBC 6.6 7.4 RBC 3.07 L 4.02 L D Hgb 8.3 L 10.7 L D Hct 25.5 L 32.8 L D MCV 83.1 81.6 MCH 27.0 26.6 L MCHC 32.5 32.6 RDW 15.0 15.0 Plt Count 162 214 D MPV 10.1 10.6 Immature Gran % (Auto) 0.5 H Neut % (Auto) 58.5 Lymph % (Auto) 23.9 [place] % (Auto) 6.8 Eos % (Auto) 9.8 H Baso % (Auto) 0.5 Lymph # (Auto) 1.6 [place] # (Auto) 0.5 Eos # (Auto) 0.7 H Baso # (Auto) 0.0 Abs Immat Gran (auto) 0.03 Absolute Neuts (auto) 3.9 Absolute Nucleated RBC 0.000 0.000 Nucleated RBC % (auto) 0.0 0.0 Sodium 141 Potassium 3.8 Chloride 110 H Carbon Dioxide 23 Anion Gap 12 BUN 19 H Creatinine 1.25 Estim Creat Clear Calc 38.9 Estimated GFR 55 POC Glucose 140 H Random Glucose 91 Calcium 8.6 12/17/24 12/17/24 12/17/24 07:05 10:08 11:10 WBC RBC Hgb Hct MCV MCH MCHC RDW Plt Count MPV Immature Gran % (Auto) Neut % (Auto) Lymph % (Auto) [place] % (Auto) Eos % (Auto) Baso % (Auto) Lymph # (Auto) [place] # (Auto) Eos # (Auto) Baso # (Auto) Abs Immat Gran (auto) Absolute Neuts (auto) Absolute Nucleated RBC Nucleated RBC % (auto) Sodium Potassium Chloride Carbon Dioxide Anion Gap BUN Creatinine Estim Creat Clear Calc Estimated GFR POC Glucose 78 88 93 Random Glucose Calcium ECG Interpretation: EKG with underlying sinus rhythm and Mobitz type one second-degree heart block. Right bundle-branch block. Left anterior fascicular block. Bifascicular block. Assessment and Plan (1) 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: Status: Acute (2) Bifascicular block: Status: Acute (3) Anemia: Status: Acute (4) Preoperative cardiovascular examination: Status: Acute Plan Telemetry is mostly suggestive of Mobitz type 1 second-degree heart block. On 1-2 to strips, probable complete heart block. Echocardiogram with LVEF of 65-70% and no significant valvular findings. Patient himself has got no symptoms. Discussed with EP at [facility]-Dr. Escobar and reviewed EKGs strips with him. According to him, no absolute contraindication for EGD. Also, no absolute indication for immediate pacemaker either. He suggesting an outpatient Holter and if any definitive high-grade heart blocks then, then may consider pacer. Otherwise, when he is in inpatient can be monitored on telemetry. If any high- grade heart blocks, to contact us. Discussed with Dr. Ruiz/. Procedures Date of Service Date of Service: 12/17/24
--- NOTE | 2024-12-17 11:36 | MHC.CM.PN ---
PER MD ROUNDS, PLAN WAS FOR SCOPE TODAY AND POTENTIAL DC TOMORROW, HOWEVER NOTES INDICATE SCOPE WAS CANCELLED DUE TO CARDIAC ISSUES. DCP REMAINS HOME VIA PRIVATE TRANSPORT ONCE MEDICALLY CLEARED
[2024-12-17 16:29] LABS: Glucose, Whole Blood 157 mg/dL (60-115)
[2024-12-17 19:52] LABS: Glucose, Whole Blood 127 mg/dL (60-115)
[2024-12-18 03:22] VITALS: BP 142/66; PULSE 54; RESP 16; TEMP 36.2; O2SAT 94
[2024-12-18 07:18] LABS: Glucose, Whole Blood 90 mg/dL (60-115)
[2024-12-18 07:52] VITALS: BP 145/94; PULSE 52; RESP 18; TEMP 36.1; O2SAT 92
[2024-12-18] MEDS: Fluticasone/Vilanterol 100/25 BLST.W.DEV 1 PUFF INHALE (08:02)
[2024-12-18 08:04] VITALS: PULSE 52; RESP 18; O2SAT 92
[2024-12-18 08:27] LABS: Hematocrit 33.0 % (42.0-52.0); Hemoglobin 10.7 g/dl (14.0-18.0); Mean Corpuscular HGB Conc 32.4 g/dl (31.0-36.0); Mean Corpuscular Hemoglobin 26.9 pg (27.0-33.0); Mean Corpuscular Volume 82.9 fL (80.0-98.0); NRBC Abs Auto 0.000 X10*3/uL (0.0-0.012); NRBC Pct Auto 0.0 /100WBC (0.0-0.2); Platelet Count 205 X10*3/uL (160-400); Red Blood Count 3.98 X10*6/uL (4.60-5.80); White Blood Count 7.2 X10*3/uL (4.8-10.8)
[2024-12-18 08:40] LABS: Anion Gap 15 (12-20); Blood Urea Nitrogen 16 mg/dL (9-16); Calcium 8.6 mg/dL (8.4-10.2); Carbon Dioxide 24 mmol/L (22-29); Chloride 108 mmol/L (96-108); Creatinine Clr Calc Pharmacy 36.3; Estimated Glomerular Filt Rate 51; Potassium 3.7 mmol/L (3.3-5.1); Sodium 143 mmol/L (135-145)
[2024-12-18] MEDS: 0.9 % Sodium Chloride Flush 3 ML SYRINGE IVFLUSH (09:04)
--- NOTE | 2024-12-18 10:03 | PM.DS ---
DS: Providers Provider Date of Service: 12/18/24 Date of admission: 12/15/24 23:16 Date of discharge: 12/18/24 Primary care physician: Monica Darby MD Consults: 12/16/24 09:25 Consult to Gastroenterology Routine Consulting Provider: [facility] Reason for consultation: melena 12/17/24 10:09 Consult to Cardiology Routine Consulting Provider: [facility] Reason for consultation: ?av block Has provider been notified: Yes DS: Diagnosis Discharge Diagnosis (1) 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: Status: Acute (2) Bifascicular block: Status: Acute (3) Anemia: Status: Acute (4) Preoperative cardiovascular examination: Status: Acute DS: Summary Hospital Course Hospital Course: from initial hpi: 84-year-old male with a past medical history of HTN, HLD, dm, COPD, CVA, CKD, GERD, sinoatrial node dysfunction, bradycardia; presented to the hospital today with a chief complaint of diarrhea. Patient reports over the past 3 days he has been having black stools. Denies any abdominal pain. Denies any shortness with the dyspnea on exertion. Denies any lightheadedness or dizziness. Denies any chest pain or palpitations. Reports he takes aspirin. Review of all other systems is negative except mentioned above ER course: Per ER team, patient abdominal exam is benign. CT abdomen pelvis showed new hypodensity in the rectum and sigmoid colon likely blood products. Limited evaluation for active hemorrhage. Sigmoid diverticulosis. 0.8 cm left ureteral stone without any obstruction. Hemoglobin 12.2. hospital course: Patient was admitted for melena with no significant drop in hemoglobin. His aspirin was held was given IV ppi. EGD was deferred due to Mobitz 1 with bradycardia, he was evaluated by Cardiology and case discussed with electrophysiology who recommended pursuing EGD if needed. Given stability of hemoglobin we will defer for now. For diabetes was continued insulin sliding scale. For BPH continued on finasteride. For CKD 3 remained stable. He will be discharged home and should follow up with Gastroenterology as outpatient. Time Attestation Discharge Coordination Time (in mins): 37 Quality: Safe Use of Opioids Does Pt have an Active Cancer Diagnosis on the Problem List?: No Quality: Stroke Does the patient have a stroke diagnosis?: No Physical Exam Vital Signs: Vital Signs: Last Vital Signs Temp 97.0 F 08/30/25 07:52 Pulse 52 12/18/24 08:04 Resp 18 12/18/24 08:04 BP 145/94 H 12/18/24 07:52 Pulse Ox 92 12/18/24 07:52 O2 Del Method Room Air 12/18/24 07:52 BMI result Body Mass Index 25.7 Const: General: comfortable and no acute distress Orientation/consciousness: patient oriented x3 HEENT: Other: Unremarkable Head: Yes normal to inspection Neck: Neck: Yes normal visual inspection Chest: Chest palpation & inspection: normal inspection of the chest Resp: Auscultation: clear to auscultation bilaterally Cardio: Palpation: normal PMI Heart sounds: S1 normal heart sound present, S2 normal heart sound present, no gallops, no murmurs and no rubs GI: Palpation (GI): Soft to palpation Back/Spine/Pelvis: Other: unremarkable Skin: General skin exam: no rashes or lesions noted Neuro: General: patient oriented x3 Extrem: General: Yes normal to inspection Psych: Mental Status: mental status grossly normal DS: Data Data Completed and Pending Labs on day of discharge: Laboratory Results - last 24 hr 12/17/24 12/17/24 12/17/24 10:08 11:10 16:05 WBC RBC Hgb Hct MCV MCH MCHC RDW Plt Count MPV Absolute Nucleated RBC Nucleated RBC % (auto) Sodium Potassium Chloride Carbon Dioxide Anion Gap BUN Creatinine Estim Creat Clear Calc Estimated GFR POC Glucose 88 93 157 H Random Glucose Calcium 12/17/24 12/18/24 12/18/24 19:49 07:09 07:33 WBC 7.2 RBC 3.98 L Hgb 10.7 L Hct 33.0 L MCV 82.9 MCH 26.9 L MCHC 32.4 RDW 14.8 Plt Count 205 MPV 10.7 Absolute Nucleated RBC 0.000 Nucleated RBC % (auto) 0.0 Sodium 143 Potassium 3.7 Chloride 108 Carbon Dioxide 24 Anion Gap 15 BUN 16 Creatinine 1.34 Estim Creat Clear Calc 36.3 Estimated GFR 51 POC Glucose 127 H 90 Random Glucose 96 Calcium 8.6 Discharge Plan Discharge Anticipated Discharge Date/Time: 12/18/24 10:02 Patient Disposition: Home, Self-Care Discharge Diagnosis: anemia Referrals: Monica Darby MD [Primary Care Provider, Internal Medicine] - 1 Week Discharge Medications: Continued Breo Ellipta 100-25 mcg/dose blister with device 1 inh inhalation DAILY 90 Days Qty: 3 3RF finasteride 5 mg tablet 5 mg PO DAILY 90 Days Qty: 90 1RF pantoprazole 40 mg tablet,delayed release (DR/EC) 40 mg PO DAILY simvastatin 40 mg tablet 40 mg PO BEDTIME lisinopril-hydrochlorothiazide 10-12.5 mg tablet 1 tab PO DAILY glipizide 5 mg tablet extended release 24hr 5 mg PO DAILY cholecalciferol (vitamin D3) 50 mcg (2,000 unit) capsule 50 mcg PO DAILY aspirin 81 mg tablet,delayed release (DR/EC) 81 mg PO DAILY Discharge Orders: Discharge Order (Routine); Ordered 12/18/24 Ordered By: Holden Ruiz Diet: Advance to usual diet Activity on Discharge: As tolerated Stand Alone Forms: Patient Portal Discharge page Print Language: [place] Care Plan Goals: Recover Health Concerns: Manage anemia Plan of Treatment: Monitor outpatient Assessment: See above
--- NOTE | 2024-12-18 10:25 | MHC.CM.PN ---
Pt. has been medically cleared to [place], he will go home via family transport, plan is self care.
== END 2024-12-18 10:56 | disposition home or self-care (01) | DRG 379 ==
LOC: HO.ED 23:17 → HO.EDOVER 23:21 → HO.IMC 12-16 14:29
PROVIDERS: Internal Medicine; Physician Assistant Medical; Admitting Provider Hospitalist; Emergency Provider Emergency Medicine; PCP Internal Medicine; Visit Provider Internal Medicine
DX: K92.1 Melena (principal); I12.9 Hypertensive chronic kidney disease with stage 1 through stage 4 chronic kidney disease, or unspecified chronic kidney disease; N18.32 Chronic kidney disease, stage 3b; I49.5 Sick sinus syndrome; D63.1 Anemia in chronic kidney disease; E11.22 Type 2 diabetes mellitus with diabetic chronic kidney disease; I44.1 Atrioventricular block, second degree; N40.0 Benign prostatic hyperplasia without lower urinary tract symptoms; I48.91 Unspecified atrial fibrillation; Z87.891 Personal history of nicotine dependence; Z79.82 Long term (current) use of aspirin; Z79.84 Long term (current) use of oral hypoglycemic drugs; Z79.899 Other long term (current) drug therapy
CPT/HCPCS: 36415; 74176; 80048; 80053; 80076; 82272; 82947; 83690; 83735; 84484; 85025; 85027; 85610; 86850; 86900; 86901; 93005; 99285; J2470; J7120

== ENCOUNTER → 2024-12-15 21:54 | Outpatient (BNV) | payer MEDICARE, SELFPAY | PROVIDERS: Admitting Provider Hospitalist; Emergency Provider Emergency Medicine; PCP Internal Medicine; Visit Provider Student in an Organized Health Care Education/Training Program | DX: K57.30 Diverticulosis of large intestine without perforation or abscess without bleeding (principal); K63.89 Other specified diseases of intestine; N20.1 Calculus of ureter; N26.1 Atrophy of kidney (terminal) | CPT/HCPCS: 74176 ==

== ENCOUNTER 2024-12-15 23:16 | Outpatient (BNV) | payer MEDICARE, SELFPAY | END 2024-12-16 23:25 | PROVIDERS: Admitting Provider Hospitalist; Emergency Provider Emergency Medicine; PCP Internal Medicine; Visit Provider Internal Medicine | DX: I44.1 Atrioventricular block, second degree (principal); I45.10 Unspecified right bundle-branch block; I25.2 Old myocardial infarction | CPT/HCPCS: 93010 ==

== ENCOUNTER → 2024-12-15 23:16 | Outpatient (BNV) | payer MEDICARE, SELFPAY | PROVIDERS: Admitting Provider Hospitalist; Emergency Provider Emergency Medicine; PCP Internal Medicine; Visit Provider Internal Medicine | DX: I44.1 Atrioventricular block, second degree (principal); I45.2 Bifascicular block; D64.9 Anemia, unspecified; Z01.810 Encounter for preprocedural cardiovascular examination | CPT/HCPCS: 99223; 99232; 99233; 99239; 99499 ==

== ENCOUNTER → 2024-12-15 23:16 | Outpatient (BNV) | payer MEDICARE, SELFPAY | PROVIDERS: Admitting Provider Hospitalist; Emergency Provider Emergency Medicine; PCP Internal Medicine; Visit Provider Internal Medicine | DX: I44.1 Atrioventricular block, second degree (principal); I45.2 Bifascicular block; D64.9 Anemia, unspecified; Z01.810 Encounter for preprocedural cardiovascular examination | CPT/HCPCS: 99223 ==

== ENCOUNTER → 2024-12-28 09:12 | Outpatient (REF) | payer MEDICARE, SELFPAY ==
--- NOTE | 2024-12-28 09:15 | HM_ITS ---
* Total monitoring time 3 days. * Underlying rhythm is sinus with an average rate of 55/Min. About 44% of the time, rate < 60/Min. * Rare supraventricular ectopy. * Rare ventricular ectopy. * Mobitz type 1 second-degree AV block during daytime as well as sleep hours. * Some strips show probable complete heart block during sleep hours with ventricular rate of 38/Min. However, brief. * No patient markers or diary events. MTDD
--- OUTSIDE RECORDS SUMMARY | 2024-12-28 10:34 | XMS_ITS | Patient Health Record ---
[facility] Organization [facility] Jasbir [place] Address [address] [place] [address] Care Team Providers Care Costume Rental Clerk Name Role Phone Monica Darby Primary Care Provider Unavailab Fabricio Granados Unavailable [phone] Allergies No Known Allergies Results Component Value [...] Referring Provider Last Name Wilner [facility] carol Aleksandar Referred Provider Fabricio Juan Referred Address [address] [place],[address], Referred Provider Specialty Podiatry Referral Priority Routine [...] Problem Acquired hammer toe of right foot (29554389809557 05) Other hammer toe(s) (acquired), right foot (M20.41) Active confirmed Problem Acquired hammer toe of left foot (80993377917863 03) Other hammer toe(s) (acquired), left foot (M20.42) Active confirmed Problem Type 2 diabetes mellitus with peripheral angiopathy (433668336) 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.51) Active confirmed Vital Signs Blood pressure diastolic 65 mm Hg 11/26/2024 Height 5 ft 6 in in 11/26/2024 Blood pressure systolic 128 mm Hg 11/26/2024 Weight 160 lbs 11/26/2024 BMI 25.82 kg/m2 11/26/2024 Procedures Procedure Date Ordered Date Performed Result Body Sit e 17818-HNYKPLE NAIL, 1-5 02/24/2024 N/A 36291-SEWQ SKIN LESIONS, OVER 4 02/24/2024 N/A E3211-EJDWCRAY DYSTROPHIC NAILS ANY # 02/24/2024 N/A 15746-UWXMACU NAIL, 1-5 05/25/2024 N/A 94655-VMIB SKIN LESIONS, OVER 4 05/25/2024 N/A D5917-PSJUZBKJ DYSTROPHIC NAILS ANY # 05/25/2024 N/A 01192-XEVVBOT NAIL, 1-5 08/24/2024 N/A 23107-VCAU SKIN LESIONS, OVER 4 08/24/2024 N/A K9475-JGNNPDLM DYSTROPHIC NAILS ANY # 08/24/2024 N/A 88541-HKNDRIF NAIL, 1-5 11/26/2024 N/A 51630-ENZO SKIN LESIONS, OVER 4 11/26/2024 N/A D5641-CTJDCQWF DYSTROPHIC NAILS ANY # 11/26/2024 N/A Encounters Encounter Location Date [facility] [address] 02/24/2024 Fabricio Parrunier Type 2 diabetes mellitus with diabetic peripheral angiopathy without gangrene E11.51 ; Tinea unguium B35.1 ; Pain in right toe(s) M79.674 ; Pain in left toe(s) M79.675 and Xerosis of skin L85.[address] [facility] [address] 05/25/2024 Fabricio Juan Type 2 diabetes mellitus with diabetic peripheral angiopathy without gangrene E11.51 ; Tinea unguium B35.1 ; Pain in right toe(s) M79.674 ; Pain in left toe(s) M79.675 ; Other hammer toe(s) (acquired), right foot M20.41 and Other hammer toe(s) (acquired), left foot M20.42 [facility] [address] 08/24/2024 Fabricio Jaun Tinea unguium B35.1 ; Type 2 diabetes mellitus with diabetic peripheral angiopathy without gangrene E11.51 ; Pain in right toe(s) M79.674 and Pain in left toe(s) M79.675 [facility] [address] 11/26/2024 Fabricio Parrunier Tinea unguium B35.1 ; [...] X ray : Foot, left 3V 02/06/2022 38843-AKIZMNK NAIL, -05/07/2022 64035-OYXHHSB NAIL, -01/21/2022 25168-ECMDOZS NAIL, -08/13/2022 76575-LJODSGP NAIL, -11/12/2022 22200-FXEEJJG NAIL, -02/04/2023 39662-GDTMTLX NAIL, -06/13/2023 10581-YRGJGLR NAIL, -11/21/2023 94340-MODDIDH NAIL, -02/24/2024 53832-YDDAAUZ NAIL, -05/25/2024 32064-YWMUZDJ NAIL, -08/24/2024 97142-CBYGVCT NAIL, -11/26/2024 61964-Nluu Destruction, -02/04/2023 87563-Hpbj Destruction, -11/12/2022 67120-Xxjb Destruction, -08/13/2022 14015-Mhdd Destruction, -01/21/2022 10308-Hsde Destruction, -05/07/2022 19921-ZJGT SKIN LESIONS, OVER 4 05/07/19 23 29102-RTBR SKIN LESIONS, OVER 4 01/22/20 68958-TCNY SKIN LESIONS, OVER 4 08/14/19 06125-TSQP SKIN LESIONS, OVER 4 11/13/19 23 47253-BUFP SKIN LESIONS, OVER 4 02/05/20 14717-GJVX SKIN LESIONS, OVER 4 11/21/19 46361-NEUK SKIN LESIONS, OVER 4 06/13/19 24 10782-UJYN SKIN LESIONS, OVER 4 11/27/19 51940-JDZB SKIN LESIONS, OVER 4 08/25/19 89077-YRJB SKIN LESIONS, OVER 4 05/25/19 18337-GBTZ SKIN LESIONS, OVER 4 02/24/20 B2859-ZYTFVKNR DYSTROPHIC NAILS ANY # Q7758-RPQOHVRX DYSTROPHIC NAILS ANY # N6850-ESPLDIRP DYSTROPHIC NAILS ANY # Z6310-EXCSVVPC DYSTROPHIC NAILS ANY # T0129-XDPFUQNA DYSTROPHIC NAILS ANY # A6407-GKXWDLPX DYSTROPHIC NAILS ANY # S2367-YOGTONAM DYSTROPHIC NAILS ANY # I1427-EMUCGMIT DYSTROPHIC NAILS ANY # M3184-JIZFDIWU DYSTROPHIC NAILS ANY # U9198-UVYJSANI DYSTROPHIC NAILS ANY # R5735-ZGOQKGQQ DYSTROPHIC NAILS ANY # Next Appt Details Provider Name:Fabricio Juan , 03/15/2025 11:30:00 AM, [address] [place], [address], Insurance Providers Payer Name Payer Address Payer Phone Subscriber Number Group Number Insured Name Patient Relationship to Insured Coverage Start Date Coverage End Date [employer] Preferred [address] [place] [address] [id number] Jhonny Shrestha Self - patient is the insured Medical (General) History Medical History History ICD Code asthma Diabetic type ll Lung disease Parkinsons disease Stroke Chicken pox COPD Colon CA Hypercholesterolemia Hypertension Surgical History Surgery Date(Month/Year) appendectomy gall bladder cataract surgery Hospitalization History Reason Date(Month/Year) Ultrasound both legs for veins 2021
--- OUTSIDE RECORDS SUMMARY | 2024-12-28 10:34 | XMS_ITS | Clinical Summary ---
Author Organization [facility] Address [address] [place] [address] Care Team Providers Care Physical Sciences Professor Name Role Phone Unavailable Primary Care Provider [...] nts (1 - 1-dose 75+ series) 11/18/2014 Depression Screening 04/21/2024 COVID-19 Vaccine (1 - 2023-2 5 season) 2024 Influenza Vaccine (#1) 2024 HIB Vaccines Aged [...]
--- OUTSIDE RECORDS SUMMARY | 2024-12-28 10:34 | XMS_ITS | Clinical Summary ---
Author Organization [facility] Address [address] [place] [address] Care Team Providers Care Mold Sheet Cleaner Name Role Phone Monica Darby MD [...] DAILY 3 Active Lancets (OneTouch Delica Plus [id number]) misc USE TO CHECK SUGARS DAILY 3 [...] patient's age to complete this topic Insurance [facility] Care Teams Mold Sheet Cleaner Relationship Specialty Start Date End Date Monica Darby MD [address] [place] [address] PCP - General Internal Medicine 05/14/22
--- OUTSIDE RECORDS SUMMARY | 2024-12-28 10:35 | XMS_ITS | Patient Health Record ---
Author Organization [facility] Address [address] [place] [address] Care Team Providers Care Deputy United States Marshal Name Role Phone Puneetgary Monica Primary Care Provider Juli oCesar Green [phone] Allergies No Known Allergies Results Component Value Reference Range Notes Ferritin Reviewed date:08/21/2024 10:07:00 PM Interpretation: Performing Lab:[facility], [address] [place] [phone] Notes/Report: Ferritin 86 20-250 ng/mL Calprotectin, Fecal Reviewed date:09/05/2024 12:15:05 AM Interpretation: Performing Lab:[facility], [address] [place] [phone] Notes/Report: Calprotectin, Fecal 192 Reference Range: <50 [...] borderline values. THIS TEST WAS PERFORMED AT: [facility] [address] [place] [address] JOEL JUAREZ MD,PHD,TERESO GI PANEL Reviewed date:08/25/2024 07:32:48 AM Interpretation: Performing Lab:[facility], [address] [place] [phone] Notes/Report: Campylobacter Not Detected Not Detect. Plesiomonas [...] is performed by Multiplexed PCR, utilizing the [employer] Array. Complete Blood Count Auto Di ff Reviewed date:08/21/2024 10:05:57 PM Interpretation: Performing Lab:[facility], [address] [place] [phone] Notes/Report: White Blood Count 7.9 4.8-10.8 X10*3/uL [...] te Reviewed date:08/21/2024 10:05:25 PM Interpretation: Performing Lab:[address] [address] Notes/Report: Erythrocyte Sedimentation Rate 34 0-15 MM/HR Patients with polycythemia and many hemoglobin abnormalities may have depressed sed rates whereas patients with anemia may have elevated sed rates. IRON PROFILE Reviewed date:08/21/2024 10:05:44 PM Interpretation: Performing Lab:[address] [address] Notes/Report: Iron 33 45-160 mcg/dL Total Iron Binding Capacity 228 228-428 mcg/dL Percent Iron Saturation 14 15-50 % Unsaturated Iron Binding 195 C Reactive Protein Reviewed date:08/21/2024 10:05:37 PM Interpretation: Performing Lab:[facility], [address] [place] [phone] Notes/Report: C Reactive Protein 0.24 < or = 0.50 mg/dL Celiac Disease Panel Reviewed date:08/23/2024 10:54:56 PM Interpretation: Performing Lab:[facility], [address] [place] [phone] Notes/Report: Immunoglobulin A 195 70-320 mg/dL THIS TEST WAS PERFORMED AT: [facility] [address] [place] [phone] JES MCLAUGHLIN MD Transglutaminase IgA <1.0 Value [...] PCR Reviewed date:08/23/2024 10:54:06 PM Interpretation: Performing Lab:[facility], [address] [place] [phone] Notes/Report: CDiff Gene PCR NEGATIVE Negative If C. difficile strongly suspected despite one negative test, a second test may be sent vs. empiric treatment for C. difficile infection. Complete Blood Count Auto Di ff (Not yet reviewed by provider) Interpretation: Performing Lab:[facility], [address] [place] [phone] Notes/Report: White Blood Count 7.2 4.8-10.8 X10*3/uL Red Blood Count 3.48 4.60-5.80 X10*6/uL Hemoglobin 9.2 14.0-18.0 g/dl Hematocrit 29.7 42.0-52.0 % Mean Corpuscular Volume 85.3 80.0-98.0 fL Mean Corpuscular Hemoglobin 26.4 27.0-33.0 pg Mean Corpuscular HGB Conc 31.0 31.0-36.0 g/dl Red Cell Distribution Width 15.0 11.0-16.0 % Platelet Count 187 160-400 X10*3/uL Mean Platelet Volume 10.5 9.4-12.4 fL Neutrophils Percent Auto 59.6 45-73 % Imm Gran Pct Auto 0.3 0.0-0.4 % Lymphocytes Percent Auto 23.2 20-40 % Monocytes Percent Auto 6.0 2-11 % Eosinophils Percent Auto 10.3 0-4 % Basophils Percent Auto 0.6 0-2 % NRBC Pct Auto 0.0 0.0-0.2 /100WBC Neutrophils Absolute Auto 4.3 2.0-8.3 x10*3/u L Imm Gran Abs Auto 0.02 0.00-0.03 X10*3/uL Lymphocytes Absolute Auto 1.7 1.2-4.9 X10*3/u L Monocytes Absolute Auto 0.4 0.1-1.2 X10*3/uL Eosinophils Absolute Auto 0.7 0.0-0.4 X10*3/u L Basophils Absolute Auto 0.0 0.0-0.2 X10*3/uL NRBC Abs Auto 0.000 0.0-0.012 X10*3/uL Complete Blood Count Auto Di ff (Not yet reviewed by provider) Interpretation: Performing Lab:[facility], [address] [place] [phone] Notes/Report: White Blood Count 6.6 4.8-10.8 X10*3/uL Red Blood Count 3.07 4.60-5.80 X10*6/uL Hemoglobin 8.3 14.0-18.0 g/dl Hematocrit 25.5 42.0-52.0 % Mean Corpuscular Volume 83.1 80.0-98.0 fL Mean Corpuscular Hemoglobin 27.0 27.0-33.0 pg Mean Corpuscular HGB Conc 32.5 31.0-36.0 g/dl Red Cell Distribution Width 15.0 11.0-16.0 % Platelet Count 162 160-400 X10*3/uL Mean Platelet Volume 10.1 9.4-12.4 fL Neutrophils Percent Auto 58.5 45-73 % Imm Gran Pct Auto 0.5 0.0-0.4 % Lymphocytes Percent Auto 23.9 20-40 % Monocytes Percent Auto 6.8 2-11 % Eosinophils Percent Auto 9.8 0-4 % Basophils Percent Auto 0.5 0-2 % NRBC Pct Auto 0.0 0.0-0.2 /100WBC Neutrophils Absolute Auto 3.9 2.0-8.3 x10*3/u L Imm Gran Abs Auto 0.03 0.00-0.03 X10*3/uL Lymphocytes Absolute Auto 1.6 1.2-4.9 X10*3/u L Monocytes Absolute Auto 0.5 0.1-1.2 X10*3/uL Eosinophils Absolute Auto 0.7 0.0-0.4 X10*3/u L Basophils Absolute Auto 0.0 0.0-0.2 X10*3/uL NRBC Abs Auto 0.000 0.0-0.012 X10*3/uL Reason For Referral Referring Provider First Name Monica Referring Provider Last Name Wilner Referring Provider Speciality Internal M edicine Referred Organization [facility] Referred Provider Julio Cesar Chaparro Referred Address [address] [place] [address],[place], [place],[address], Referred Provider Specialty Gastroentero logy Referral Priority [...] Problem Status W/U Status Risk Notes Problem 915891174 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) Active confirmed Problem 40956549 Diarrhea, unspecified type (R19.7) Active confirmed Problem 253902271 Angiodysplasia o f stomach (K31.819) Active confirmed Vital Signs Blood pressure diastolic 77 mm Hg 08/19/2024 Height 69 in 08/19/2024 Blood pressure systolic 111 mm Hg 08/19/2024 Weight 159 lbs 08/19/2024 BMI 23.48 kg/m2 08/19/2024 Encounters Encounter Location Date Provider Diagnosis [facility] [address] [place] [phone] 04/27/2024 Julio Cesar Chaparro Diarrhea, unspecifie d type R19.7 and Iron deficiency anemia due to chronic blood loss D50.0 [facility] [address] [place] [phone] 08/19/2024 Julio Cesar Chaparro Diarrhea, unspecifie d type R19.7 and Iron deficiency anemia due to chronic blood loss D50.0 [facility] [address] [place] [phone] 07/13/2024 Julio Cesar Chaparro [facility] [address] [place] [phone] 08/18/2024 Julio Cesar Chaparro Assessments Encounter Date [...] (ESR) 08/19/2024 C DIFFICILE RFLX PCR 08/19/2024 Complete Blood Count Auto Diff 5 Complete Blood Count Auto Diff 5 Celiac Panel 10 08/19/2024 Insurance Providers Payer Name Payer Address Payer Phone Subscriber Number Group Number Insured Name Patient Relationship to Insured Coverage Start Date Coverage End Date [employer] P[employer] [address] [place] [address] [phone] [id number] LOPEZ CASEY Self - patient is the insured Medical (General) History Medical History History ICD Code Strokes--sees Dr. Ornelas NIDDM Hypertension Asthma COPD Denies MT,renal disease Iron deficiency anemia-he wa s hospitalized [...]
== END ==
LOC: HO.CARD 09:12
PROVIDERS: PCP Internal Medicine; Visit Provider Internal Medicine Cardiovascular Disease
DX: I44.1 Atrioventricular block, second degree (principal); I45.2 Bifascicular block
CPT/HCPCS: 93242

== ENCOUNTER → 2024-12-28 09:15 | Outpatient (BNV) | payer MEDICARE, SELFPAY | PROVIDERS: PCP Internal Medicine; Visit Provider Internal Medicine | DX: I44.1 Atrioventricular block, second degree (principal); I49.3 Ventricular premature depolarization; I49.49 Other premature depolarization | CPT/HCPCS: 93244 ==

== ENCOUNTER 2025-01-11 12:33 | Outpatient (AMB) | payer MEDICARE, SELFPAY ==
--- NOTE | 2025-01-11 12:39 | MHC.OFFVIS ---
Vital Signs 01/11/25 12:40 Height 5 ft 6 in Weight 154 lb 5.177 oz BMI 24.9 BP 116/70 Blood Pressure Location Lt brachial Position Sitting Pulse 77 Intake Visit Reasons: C-DC -Follow up Intake Note: Follow-up [facility] [place] after holter and echo feeling ok Assurance Analyst Required: No Allergies No Known Allergies (No Known Allergies*) Allergy (Verified 12/15/24 17:45) Medication List - Last Reconciled 01/11/25 by Jorge Ornelas MD aspirin 81 mg PO DAILY benzonatate 100 mg PO TID bismuth subsalicylate (Kaopectate Ex Str (bismuth ss)) 525 mg PO Q30M PRN Breo Ellipta 100-25 mcg/dose (fluticasone furoate-vilanterol) 1 inh inhalation DAILY 90 days NS cholecalciferol (vitamin D3) 50 mcg PO DAILY finasteride 5 mg PO DAILY 90 days glipizide ER 5 mg PO DAILY losartan-hydrochlorothiazide 50-12.5 mg 1 tab PO DAILY pantoprazole 40 mg PO DAILY simvastatin 40 mg PO BEDTIME HPI Comments Details: Jhonny comes for follow-up. He was recently hospitalized with anemia and was noted to have asymptomatic Mobitz type 1 second-degree AV block. He then subsequently did not undergo upper endoscopy because of the same. He has no cardiovascular symptoms of lightheadedness syncope. He does have increased shortness of breath as per the and with increased wheezing and cough production. He denies any orthopnea, PND, leg edema. Denies any exertional chest pain. Holter monitor did show Mobitz type 1 second-degree AV block along with 2 is to 1 av block. I do not see any significant strips of complete heart block. Patient does have 2 is to 1 block during sleep hours. [facility] Medical History Bifascicular block Diabetes Bradycardia Bronchitis Sinoatrial node dysfunction CKD (chronic kidney disease) stage 3, GFR 30-59 ml/min Cough Hypersomnia Stroke COPD exacerbation COPD (chronic obstructive pulmonary disease) Allergic rhinitis Surgical History Hx of cataract surgery (~09/2023) S/P tonsillectomy and adenoidectomy Hx of cholecystectomy History of appendectomy Family History Mother No problems noted. Father Heart disease Social History Household Members: Spouse Housing: House Do you presently have visiting nurse or other home services: Yes Alcohol intake: former Comment: PT standby assist to Bathroom Patient Tobacco Use Status: Former Tobacco user Years Smoked: 40 +/- service: Yes Review of Systems Const Denies chills, Denies fatigue, Denies fever(s), Denies frequent falls, Denies weakness, Denies weight gain and Denies weight loss ENT Denies dizziness Card Denies chest pain, Denies leg edema, Denies lightheadedness, Denies palpitations, Denies dyspnea, Denies dyspnea on exertion, Denies orthopnea and Denies other (loss of consciousness) Resp Denies cough, Denies dyspnea and Denies dyspnea on exertion GI Denies hematochezia and Denies change in stool character Musc Denies abnormal gait, Denies muscle weakness, Denies numbness, Denies radiating pain into limb and Denies tingling Neuro Denies Abnormal speech present, Denies abnormal gait, Denies dizziness, Denies frequent falls, Denies numbness, Denies tingling and Denies weakness Endo Denies fatigue and Denies palpitations Physical Exam Vital Signs: Last Vital Signs Pulse 77 01/11/25 12:40 BP 116/70 01/11/25 12:40 BMI result Body Mass Index 24.9 Const General: cooperative, comfortable, no acute distress, alert and awake Nutritional Appearance: average body habitus Orientation/consciousness: patient oriented x3 Limitations: no limitations HEENT Head: Yes normocephalic and Yes atraumatic Neck Neck: Yes trachea midline, Yes supple and Yes no JVD Resp Effort & Inspection: normal respiratory effort Auscultation: diminished lung sounds and bronchovesicular breath sounds Cardio Jugular venous distension: no JVD Palpation: normal PMI Rate: regular rate Rhythm: regular rhythm Heart sounds: S1 normal heart sound present, S2 normal heart sound present, no click, no gallops, no murmurs and no rubs GI Auscultation: normal bowel sounds Skin General skin exam: no rashes or lesions noted Neuro General: patient oriented x3 and no focal motor deficits Speech: No Abnormal speech present Extrem General: Yes no clubbing, cyanosis or edema Assessment & Plan Assessment & Plan (1) 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 This is highly suggestive of underlying conduction system issues. However patient does not have any evidence of complete heart block or any cardiovascular symptoms of lightheadedness or syncope. At this point time management will be nonintervention and I do not think he would benefit from pacing therapy. He does have symptoms exertional shortness of breath most likely related to his underlying COPD with Mibi mild exacerbation at this point time along with anemia. Continue manage from that perspective. Signs and symptoms of complete heart block or bradycardia were discussed with him. Will follow up in the clinic in 1 year's time, sooner PRN. Thank you for allowing me to partake in his care Coding Level of Care Code Est Pt Level 4 (02635) Complex EM visit Add On G2211 Diagnoses 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 I44.1
[2025-01-11 12:40] VITALS: BP 116/70; PULSE 77; BMI 24.9
--- OUTSIDE RECORDS SUMMARY | 2025-01-11 15:25 | XMS_ITS | Clinical Summary ---
Author Organization [facility] Facility Address [address] [place] [address] Care Team Providers Care Adult Basic Studies Teacher Name Role Phone Monica Darby MD Primary [...] DAILY 3 Active Lancets (OneTouch Delica Plus [id number]) misc USE TO CHECK SUGARS DAILY 3 [...] patient's age to complete this topic Insurance [facility] Care Teams Adult Basic Studies Teacher Relationship Specialty Start Date End Date Monica Darby MD [address] [place] [address] PCP - General Internal Medicine 05/14/22
--- OUTSIDE RECORDS SUMMARY | 2025-01-11 15:25 | XMS_ITS | Patient Health Record ---
Author Organization [facility] Address [address] [place] [address] Care Team Providers Care Sample Tailor Name Role Phone Puneetgary Monica Primary Care Provider Julio Cesar Green [phone] Allergies No Known Allergies Results Component Value Reference Range Notes Ferritin Reviewed date:08/21/2024 10:07:00 PM Interpretation: Performing Lab:[facility], [place], [address] [place] [phone] Notes/Report: Ferritin 86 20-250 ng/mL Calprotectin, Fecal Reviewed date:09/05/2024 12:15:05 AM Interpretation: Performing Lab:[facility] [place], [address] [place] [phone] Notes/Report: Calprotectin, Fecal 192 Reference Range: <50 [...] borderline values. THIS TEST WAS PERFORMED AT: [facility] [address] [place] [address] JOEL JUAREZ MD,PHD,TERESO GI PANEL Reviewed date:08/25/2024 07:32:48 AM Interpretation: Performing Lab:[facility] [place], [address] [place] [phone] Notes/Report: Campylobacter Not Detected Not Detect. Plesiomonas [...] is performed by Multiplexed PCR, utilizing the Maxta Array. Complete Blood Count Auto Di ff Reviewed date:08/21/2024 10:05:57 PM Interpretation: Performing Lab:[facility] [place], [address] [place] [phone] Notes/Report: White Blood Count 7.9 4.8-10.8 X10*3/uL [...] te Reviewed date:08/21/2024 10:05:25 PM Interpretation: Performing Lab:[address] [phone] Notes/Report: Erythrocyte Sedimentation Rate 34 0-15 MM/HR Patients with polycythemia and many hemoglobin abnormalities may have depressed sed rates whereas patients with anemia may have elevated sed rates. IRON PROFILE Reviewed date:08/21/2024 10:05:44 PM Interpretation: Performing Lab:[address] [phone] Notes/Report: Iron 33 45-160 mcg/dL Total Iron Binding Capacity 228 228-428 mcg/dL Percent Iron Saturation 14 15-50 % Unsaturated Iron Binding 195 C Reactive Protein Reviewed date:08/21/2024 10:05:37 PM Interpretation: Performing Lab:[facility] [place], [address] [place] [phone] Notes/Report: C Reactive Protein 0.24 < or = 0.50 mg/dL Celiac Disease Panel Reviewed date:08/23/2024 10:54:56 PM Interpretation: Performing Lab:[facility] [place], [address] [place] [phone] Notes/Report: Immunoglobulin A 195 70-320 mg/dL THIS TEST WAS PERFORMED AT: [facility] [address] [place] [phone] JES MCLAUGHLIN MD Transglutaminase IgA <1.0 Value [...] PCR Reviewed date:08/23/2024 10:54:06 PM Interpretation: Performing Lab:[facility] [place], [address] [place] [phone] Notes/Report: CDiff Gene PCR NEGATIVE Negative If C. difficile strongly suspected despite one negative test, a second test may be sent vs. empiric treatment for C. difficile infection. Complete Blood Count Auto Di ff (Not yet reviewed by provider) Interpretation: Performing Lab:[facility] [place], [address] [place] [phone] Notes/Report: White Blood Count 7.2 4.8-10.8 X10*3/uL [...] (Not yet reviewed by provider) Interpretation: Performing Lab:[facility] [place], [address] [place] [phone] Notes/Report: White Blood Count 6.6 4.8-10.8 X10*3/uL [...] Provider Speciality Internal M edicine Referred Organization [facility] Referred Provider Julio Cesar Chaparro Referred Address [address] [place] [address],[place], [place],[address], Referred Provider Specialty Gastroentero logy Referral Priority [...] Problem Status W/U Status Risk Notes Problem 813865672 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) Active confirmed Problem 33806140 Diarrhea, unspecified type (R19.7) Active confirmed Problem 845536533 Angiodysplasia o f stomach (K31.819) Active confirmed Problem Anemia due to blood loss (014640159) Anemia due to blood loss (D50.0) Active confirmed Vital Signs Blood pressure diastolic 77 mm Hg 08/19/2024 Height 69 in 08/19/2024 Blood pressure systolic 111 mm Hg 08/19/2024 Weight 159 lbs 08/19/2024 BMI 23.48 kg/m2 08/19/2024 Encounters Encounter Location Date Provider Diagnosis [facility] [address] [place] [phone] 04/27/2024 Julio Cesar Chaparro Diarrhea, unspecifie d type R19.7 and Iron deficiency anemia due to chronic blood loss D50.0 [facility] [address] [place] [phone] 08/19/2024 Julio Cesar Chaparro Diarrhea, unspecifie d type R19.7 and Iron deficiency anemia due to chronic blood loss D50.0 [facility] [address] [place] [phone] 07/13/2024 Julio Cesar Chaparro [facility] [address] [place] [phone] 08/18/2024 Julio Cesar Chaparro [facility] [address] [place] [phone] 01/03/2025 Julio Cesar Chaparro Assessments Encounter Date Diagnosis [...] PCR 08/19/2024 Complete Blood Count Auto Diff 08/28/202 5 Complete Blood Count Auto Diff 5 Celiac Panel 10 08/19/2024 Insurance Providers Payer Name Payer Address Payer Phone Subscriber Number Group Number Insured Name Patient Relationship to Insured Coverage Start Date Coverage End Date [employer] PREF[employer]ED [address] [place] [phone] [id number] LOPEZ CASEY Self - patient is the insured Medical (General) History Medical History History ICD Code Strokes--sees Dr. Ornelas NIDDM Hypertension Asthma COPD Denies [place],renal disease Iron deficiency anemia-he wa s hospitalized [...]
--- OUTSIDE RECORDS SUMMARY | 2025-01-11 15:25 | XMS_ITS | Clinical Summary ---
Author Organization [facility] Address [address] [place] [address] Care Team Providers Care Hides And Skins Colorer Name Role Phone Unavailable Primary Care Provider [...]
--- OUTSIDE RECORDS SUMMARY | 2025-01-11 15:25 | XMS_ITS | Patient Health Record ---
Author Organization [facility] [place] Address [address] [place] [address] Care Team Providers Care Bluing Oven Tender Name Role Phone Monica Darby Primary Care Provider Unavailab Fabricio Granados Unavailable [phone] Allergies No Known Allergies Results Component Value [...] Referring Provider Last Name Wilner [facility] carol Aleksandar Referred Provider Fabricio Juan Referred Address [address] [place],[address], Referred Provider Specialty Podiatry Referral Priority Routine [...] Problem Acquired hammer toe of right foot (32581966915412 05) Other hammer toe(s) (acquired), right foot (M20.41) Active confirmed Problem Acquired hammer toe of left foot (93639529768820 03) Other hammer toe(s) (acquired), left foot (M20.42) Active confirmed Problem Type 2 diabetes mellitus with peripheral angiopathy (625730882) 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.51) Active confirmed Vital Signs Blood pressure diastolic 65 mm Hg 11/26/2024 Height 5 ft 6 in in 11/26/2024 Blood pressure systolic 128 mm Hg 11/26/2024 Weight 160 lbs 11/26/2024 BMI 25.82 kg/m2 11/26/2024 Procedures Procedure Date Ordered Date Performed Result Body Sit e 67645-UHDQIAA NAIL, 1-5 02/24/2024 N/A 95735-JWPL SKIN LESIONS, OVER 4 02/24/2024 N/A B0670-RKXMJRYH DYSTROPHIC NAILS ANY # 02/24/2024 N/A 37829-THIYMWY NAIL, 1-5 05/25/2024 N/A 66710-ZFLW SKIN LESIONS, OVER 4 05/25/2024 N/A D0083-GRNSPIPM DYSTROPHIC NAILS ANY # 05/25/2024 N/A 71304-GBFKTIF NAIL, 1-5 08/24/2024 N/A 86985-MMCV SKIN LESIONS, OVER 4 08/24/2024 N/A O2870-FWLRLOVS DYSTROPHIC NAILS ANY # 08/24/2024 N/A 87406-YITDQOY NAIL, 1-5 11/26/2024 N/A 46801-FDXQ SKIN LESIONS, OVER 4 11/26/2024 N/A K3103-ZSUWCRUZ DYSTROPHIC NAILS ANY # 11/26/2024 N/A Encounters Encounter Location Date Provider Diagnosis [facility] [address] 02/24/2024 Fabricio Parrunier Type 2 diabetes mellitus with diabetic peripheral angiopathy without gangrene E11.51 ; Tinea unguium B35.1 ; Pain in right toe(s) M79.674 ; Pain in left toe(s) M79.675 and Xerosis of skin L85.[address] [facility] [address] 05/25/2024 Fabricio Juan Type 2 diabetes mellitus with diabetic peripheral angiopathy without gangrene E11.51 ; Tinea unguium B35.1 ; Pain in right toe(s) M79.674 ; Pain in left toe(s) M79.675 ; Other hammer toe(s) (acquired), right foot M20.41 and Other hammer toe(s) (acquired), left foot M20.42 [facility] [address] 08/24/2024 Fabricio Juan Tinea unguium B35.1 ; Type 2 diabetes mellitus with diabetic peripheral angiopathy without gangrene E11.51 ; Pain in right toe(s) M79.674 and Pain in left toe(s) M79.[address] [facility] [address] 11/26/2024 Fabricio Parrunier Tinea unguium B35.1 ; [...] X ray : Foot, left 3V 02/06/2022 99592-BUJWBGU NAIL, -05/07/2022 08230-QYOVQVB NAIL, -01/21/2022 07575-DLQRNOG NAIL, -08/13/2022 61544-KBKBQUK NAIL, -11/12/2022 40301-QTUQBRK NAIL, -02/04/2023 88247-UCMSTJX NAIL, -06/13/2023 59893-GQBZDHL NAIL, -11/21/2023 97248-UIAVRRH NAIL, -02/24/2024 64093-MLANHUP NAIL, -05/25/2024 08799-PVVLZMZ NAIL, -08/24/2024 92853-PHZWWCE NAIL, -11/26/2024 07261-Fdrm Destruction, -02/04/2023 88177-Mwzo Destruction, -11/12/2022 37221-Gfsn Destruction, -08/13/2022 51697-Iifs Destruction, -01/21/2022 90040-Ktab Destruction, -05/07/2022 90907-XDQM SKIN LESIONS, OVER 4 05/07/19 23 47171-GJAW SKIN LESIONS, OVER 4 01/22/20 35135-HKRV SKIN LESIONS, OVER 4 08/14/19 27469-UIKV SKIN LESIONS, OVER 4 11/13/19 23 56844-VQYU SKIN LESIONS, OVER 4 02/05/20 53139-CFTS SKIN LESIONS, OVER 4 11/21/19 26230-IDWS SKIN LESIONS, OVER 4 06/13/19 24 51855-UZFM SKIN LESIONS, OVER 4 11/27/19 73284-GQQK SKIN LESIONS, OVER 4 08/25/19 89703-VZWT SKIN LESIONS, OVER 4 05/25/19 25484-LCPI SKIN LESIONS, OVER 4 02/24/20 V1106-GTETNJBZ DYSTROPHIC NAILS ANY # U2126-PVCWMYHE DYSTROPHIC NAILS ANY # I1603-YTWLUAJC DYSTROPHIC NAILS ANY # E7375-BNRYGIYK DYSTROPHIC NAILS ANY # I4642-KCEAPSDL DYSTROPHIC NAILS ANY # O1620-SOQUULHO DYSTROPHIC NAILS ANY # S7735-VUMGCFOR DYSTROPHIC NAILS ANY # U0401-NRHTADIE DYSTROPHIC NAILS ANY # U6011-VIBBARCW DYSTROPHIC NAILS ANY # M3505-LGRWFBUA DYSTROPHIC NAILS ANY # K7287-JZIWSSTY DYSTROPHIC NAILS ANY # Next Appt Details Provider Name:Fabricio Juan , 03/15/2025 11:30:00 AM, [address] [place], [address], Insurance Providers Payer Name Payer Address Payer Phone Subscriber Number Group Number Insured Name Patient Relationship to Insured Coverage Start Date Coverage End Date [employer] Preferred [address] [place] [address] [phone] [id number] Jhonny Shrestha Self - patient is the insured Medical (General) History Medical History History ICD Code asthma Diabetic type ll Lung disease Parkinsons disease Stroke Chicken pox COPD Colon CA Hypercholesterolemia Hypertension Surgical History Surgery Date(Month/Year) appendectomy gall bladder cataract surgery Hospitalization History Reason Date(Month/Year) Ultrasound both legs for veins 2021
== END 2025-01-11 13:02 | disposition home or self-care (01) ==
PROVIDERS: PCP Internal Medicine; Visit Provider Internal Medicine Cardiovascular Disease
DX: I44.1 Atrioventricular block, second degree (principal)
CPT/HCPCS: 99214; G2211

== ENCOUNTER → 2025-01-11 12:33 | Outpatient (BNVA) | payer MEDICARE, SELFPAY | PROVIDERS: PCP Internal Medicine; Visit Provider Internal Medicine Cardiovascular Disease | DX: I44.1 Atrioventricular block, second degree (principal) | CPT/HCPCS: 99212 ==

== ENCOUNTER 2025-01-24 14:16 | Outpatient (AMB) | payer MEDICARE, SELFPAY ==
[2025-01-24 14:24] VITALS: BP 120/68; PULSE 66; O2SAT 97; BMI 25.1
--- NOTE | 2025-01-24 14:24 | A.OFFVIS_ITS ---
Vital Signs 01/24/25 14:24 Height 5 ft 6 in Weight 155 lb 6.814 oz BMI 25.1 BP 120/68 Blood Pressure Location Rt brachial Position Sitting Pulse 66 Pulse Source Pulse Oximeter Pulse Oximetry (%) 97 Oxygen Delivery Method Room Air Intake Visit Reasons: COPD Intake Note: pt is here for follow up and states he had 2 episodes of [facility], and was told his heart rate was very low while sleeping, and today he has a cough from a post nasal drip. This makes is a constant cough with a very hard time to cough it up. After eating he starts with choking he states due to phelgm. Baseball Player Required: No Agency Recruiter: Agency Recruiter offered & declined Allergies No Known Allergies (No Known Allergies*) Allergy (Verified 01/24/25 15:06) Medication List - Last Reconciled 01/24/25 by Dov Luz MD albuterol sulfate 90 mcg/actuation (Ventolin HFA) 2 puffs inhalation Q6H PRN aspirin 81 mg PO DAILY benzonatate 100 mg PO TID bismuth subsalicylate (Kaopectate Ex Str (bismuth ss)) 525 mg PO Q30M PRN Breo Ellipta 100-25 mcg/dose (fluticasone furoate-vilanterol) 1 inh inhalation DAILY 90 days NS cholecalciferol (vitamin D3) 50 mcg PO DAILY finasteride 5 mg PO DAILY 90 days fluticasone propionate 50 mcg/actuation (Flonase Allergy Relief) 1 spray in tranasal BID glipizide ER 5 mg PO DAILY losartan-hydrochlorothiazide 50-12.5 mg 1 tab PO DAILY pantoprazole 40 mg PO DAILY simvastatin 40 mg PO BEDTIME Do you need a note to return to daycare/school/sports/work: No HPI HPI COPD: Details: THIS 84 YEARS OLD GENTLEMAN KNOWN TO ME FOR MANY MANY YEARS, AT PRESENT COMES TO SEE ME FOR HIS CHRONIC OBSTRUCTIVE PULMONARY DISEASE. THIS IS HIS 6 MONTHS FOLLOW-UP. HE STATES THAT IN NOVEMBER OF THIS YEAR HE WAS ADMITTED TO THE HOSPITAL TWICE, 1ST TIME WITH ABDOMINAL PAIN AND DIARRHEA, AND 2ND TIME A WEEK LATER WAS ADMITTED WITH DARK STOOLS. HE WAS FELT TO HAVE MELENA IN THE HOSPITAL HIS HEMOGLOBIN DID NOT DROP. EGD INITIALLY PLANNED BUT WAS DEFERRED BECAUSE OF STABILIZATION OF THE HEMOGLOBIN. HE HAS BEEN ON PROTONIX 20 MG DAILY. SINCE HIS DISCHARGE HE IS HOLDING STABLE. HIS MAIN CONCERN IS THAT HE HAS NASAL CONGESTION WITH POSTNASAL DRIP AND SOMETIME WHEN HE IS EATING, HE HAS LOT OF MUCUS IN NASOPHARYNX, AND STARTS HAVING COUGH . HE DOES TAKE ZYRTEC 10 MG DAILY AND HAS BEEN OUT OF FLONASE. [facility] Medical History Bifascicular block Diabetes Bradycardia Bronchitis Sinoatrial node dysfunction CKD (chronic kidney disease) stage 3, GFR 30-59 ml/min Cough Hypersomnia Stroke COPD exacerbation COPD (chronic obstructive pulmonary disease) Allergic rhinitis Surgical History Hx of cataract surgery (~09/2023) S/P tonsillectomy and adenoidectomy Hx of cholecystectomy History of appendectomy Family History Mother No problems noted. Father Heart disease Social History Household Members: Spouse Housing: House Do you presently have visiting nurse or other home services: Yes Alcohol intake: former Comment: PT standby assist to Bathroom Patient Tobacco Use Status: Former Tobacco user Years Smoked: 40 +/- service: Yes Review of Systems Const All systems reviewed & are unremarkable except as noted in HPI and below Eyes Reports no additional complaints ENT Denies vertigo, Denies dizziness and Reports nasal congestion (Mild intermittent) Card Denies chest pain, Denies irregular heart rhythm and Denies leg edema Resp Reports as per HPI GI Reports no additional complaints Reports no additional complaints Musc Reports no additional complaints Skin/Breast Reports system reviewed and no additional complaints, except as documented Neuro Denies vertigo and Denies dizziness Psych Reports no additional complaints Endo Reports no additional complaints Physical Exam Vital Signs: Last Vital Signs Pulse 66 01/24/25 14:24 BP 120/68 01/24/25 14:24 Pulse Ox 97 01/24/25 14:24 Oxygen Delivery Method Room Air 01/24/25 14:24 BMI result Body Mass Index 25.1 Const General: comfortable, no acute distress, alert and awake Orientation/consciousness: patient oriented x3 HEENT Head: Yes normal to inspection General nose exam: No nasal polyps present and No nasal discharge present Face and sinus: Yes sinuses nontender Mouth: oropharynx normal Throat: Yes posterior oropharynx normal (There is some a whitish mucus in the nasopharynx) Eyes General: appearance normal, both eyes and all related structures Neck Neck: Yes normal visual inspection, Yes no lymphadenopathy, Yes trachea midline and Yes no JVD Thyroid: Thyroid normal Chest Chest palpation & inspection: normal inspection of the chest, normal palpation of entire chest wall and no tenderness Resp Other: Percussion note resonant, breath sounds are distant with prolonged expiratory phase. But both lungs are clear without wheezes crepitations or rhonchi . Cardio Palpation: normal PMI Rate: regular rate Rhythm: regular rhythm Heart sounds: no gallops and no murmurs Peripheral pulses: Peripheral pulses 2+ throughout GI Palpation (GI): Soft to palpation, nontender, No hepatosplenomegaly present and no masses Auscultation: normal bowel sounds Back/Spine/Pelvis Thoracic/Lumbar Spine: thoracic and lumbar spine normal to inspection and thoraco-lumbar ROM limited Skin General skin exam: no rashes or lesions noted Neuro General: patient oriented x3 and no focal motor deficits Cranial nerves: Yes CN's II-XII intact bilaterally Extrem General: Yes normal to inspection, Yes no clubbing, cyanosis or edema and Yes no calf tenderness Psych Appearance: grossly normal and well kempt Speech and movement: Normal speech and movement present Results Reviewed Results Reviewed: I REVIEWED THE DISCHARGE NOTES FROM THE HOSPITAL FOR HIS TO ADMISSION IN LATE NOVEMBER, AND EXPLAINED TO THE PATIENT AND HIS . Assessment & Plan Assessment & Plan (1) COPD (chronic obstructive pulmonary disease): Comment: COPD WITH ELEMENT OF MILD ASTHMA, IS CHRONIC AND REMAINS WELL CONTROLLED AND STABLE. THERE HAS BEEN NO ACUTE EXACERBATION IN THE LAST 6 MONTHS. Code(s): J44.9 - Chronic obstructive pulmonary disease, unspecified Category: Medical Plan: CONTINUE BREO ELLIPTA 100-251 INHALATION DAILY AND ALBUTEROL HFA 2 PUFFS Q 6 HOURS P.R.N. (2) Cough: Comment: HE HAS CHRONIC COUGH ASSOCIATED WITH HIS COPD AND ALLERGIC RHINITIS. CURRENTLY IT IS MILD AND STABLE. Code(s): R05.9 - Cough, unspecified Category: Medical Plan: EXPLAINED THAT HIS COUGH IS MOSTLY DUE TO ALLERGIC RHINITIS AND POSTNASAL DISCHARGE. HE HAS TO CONTINUE THE MEDS FOR ALLERGIC RHINITIS. ALSO EXPLAINED THAT SOMETIMES IT COULD BE DUE TO DIFFICULTY IN SWALLOWING AND MICRO ASPIRATIONS. AND HE SHOULD BE VERY CAREFUL WHEN HE IS EATING AND SWALLOWING. (3) Allergic rhinitis: Comment: CHRONIC ,MILD TO MODERATE , REMAINS WELL CONTROLLED . BUT DOES RESULT IN CHRONIC POSTNASAL DISCHARGE CAUSING COUGH Code(s): J30.9 - Allergic rhinitis, unspecified Category: Medical Plan: RESTART USING FLONASE -50 2 SPRAY IN EACH NOSTRIL DAILY ALSO TAKE ZYRTEC ( CETIRIZINE ) 10 MG HALF TAB DAILY AND THE BEST TIME TO TAKE MAY BE IN THE EVENINGS Medications: New fluticasone propionate 50 mcg/actuation (Flonase Allergy Relief) administer 2 SPRAYS into each nostril 1 spray intranasal BID 16 grams 5RF ALLERGIC RHINITIS 30 days Coding Level of Care Code Est Pt Level 3 (75432) Diagnoses COPD (chronic obstructive pulmonary disease) J44.9 Cough R05.9 Allergic rhinitis J30.9
--- OUTSIDE RECORDS SUMMARY | 2025-01-24 16:47 | XMS_ITS | Patient Health Record ---
Author Organization [facility] Address [address] [place] [address] Care Team Providers Care Cyber Defense Analyst Name Role Phone Puneetgary Monica Primary Care Provider Julio Cesar Green [phone] Allergies No Known Allergies Results Component Value Reference Range Notes Ferritin Reviewed date:08/21/2024 10:07:00 PM Interpretation: Performing Lab:[facility], [address] [place] [phone] Notes/Report: Ferritin 86 20-250 ng/mL Calprotectin, Fecal Reviewed date:09/05/2024 12:15:05 AM Interpretation: Performing Lab:[facility], [address] [place] [phone] Notes/Report: Calprotectin, Fecal 192 Reference Range: <50 [...] borderline values. THIS TEST WAS PERFORMED AT: [employer] [address] [place] [address] JOEL JUAREZ MD,PHD,TERESO GI PANEL Reviewed date:08/25/2024 07:32:48 AM Interpretation: Performing Lab:[facility], [address] [place] [phone] Notes/Report: Campylobacter Not Detected Not Detect. Plesiomonas [...] is performed by Multiplexed PCR, utilizing the KelBillet Array. Complete Blood Count Auto Di ff Reviewed date:08/21/2024 10:05:57 PM Interpretation: Performing Lab:[facility], [address] [place] [address] Notes/Report: White Blood Count 7.9 4.8-10.8 X10*3/uL [...] te Reviewed date:08/21/2024 10:05:25 PM Interpretation: Performing Lab:[address] [address] Notes/Report: Erythrocyte Sedimentation Rate 34 0-15 MM/HR Patients with polycythemia and many hemoglobin abnormalities may have depressed sed rates whereas patients with anemia may have elevated sed rates. IRON PROFILE Reviewed date:08/21/2024 10:05:44 PM Interpretation: Performing Lab:[address] [address] Notes/Report: Iron 33 45-160 mcg/dL Total Iron Binding Capacity 228 228-428 mcg/dL Percent Iron Saturation 14 15-50 % Unsaturated Iron Binding 195 C Reactive Protein Reviewed date:08/21/2024 10:05:37 PM Interpretation: Performing Lab:[facility], [address] [place] [address] Notes/Report: C Reactive Protein 0.24 < or = 0.50 mg/dL Celiac Disease Panel Reviewed date:08/23/2024 10:54:56 PM Interpretation: Performing Lab:[facility], [address] [place] [phone] Notes/Report: Immunoglobulin A 195 70-320 mg/dL THIS TEST WAS PERFORMED AT: [employer] [address] [place] [address] JES MCLAUGHLIN MD Transglutaminase IgA <1.0 Value [...] PCR Reviewed date:08/23/2024 10:54:06 PM Interpretation: Performing Lab:[facility], [address] [place] [address] Notes/Report: CDiff Gene PCR NEGATIVE Negative If C. difficile strongly suspected despite one negative test, a second test may be sent vs. empiric treatment for C. difficile infection. Complete Blood Count Auto Di ff (Not yet reviewed by provider) Interpretation: Performing Lab:[facility], [address] [place] [phone] Notes/Report: White Blood Count 7.2 4.8-10.8 X10*3/uL [...] (Not yet reviewed by provider) Interpretation: Performing Lab:[facility], [address] [place] [address] Notes/Report: White Blood Count 6.6 4.8-10.8 X10*3/uL [...] Speciality Internal M edicine Referred Organization [facility] Referred Provider Julio Cesar Chaparro Referred Address [address] [place] [address],[place], [place],[address], Referred Provider Specialty Gastroentero logy Referral Priority [...] Problem Status W/U Status Risk Notes Problem 323987989 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) Active confirmed Problem 59272485 Diarrhea, unspecified type (R19.7) Active confirmed Problem 094032315 Angiodysplasia o f stomach (K31.819) Active confirmed Problem Anemia due to blood loss (912232676) Anemia due to blood loss (D50.0) Active confirmed Vital Signs Blood pressure diastolic 77 mm Hg 08/19/2024 Height 69 in 08/19/2024 Blood pressure systolic 111 mm Hg 08/19/2024 Weight 159 lbs 08/19/2024 BMI 23.48 kg/m2 08/19/2024 Encounters Encounter Location Date Provider Diagnosis [facility] [address] [place] [address] 04/27/2024 Julio Cesar Chaparro Diarrhea, unspecifie d type R19.7 and Iron deficiency anemia due to chronic blood loss D50.0 [facility] [address] [place] [address] 08/19/2024 Julio Cesar Chaparro Diarrhea, unspecifie d type R19.7 and Iron deficiency anemia due to chronic blood loss D50.0 [facility] [address] [place] [address] 07/13/2024 Julio Cesar Chaparro [facility] [address] [place] [address] 08/18/2024 Julio Cesar Chaparro [facility] [address] [place] [address] 01/03/2025 Julio Cesar Chaparro Assessments Encounter Date [...] symptoms such as bleeding or weight loss. Lopze understood this and was very comfortable with [...] MEDICARE PREFERRED [address] [place] [phone] [id number] LOPEZ CASEY Self - patient is the insured Medical (General) History Medical History History ICD Code Strokes--sees Dr. Ornelas NIDDM Hypertension Asthma COPD Denies [place],renal disease Iron deficiency anemia-he wa s hospitalized [...]
--- OUTSIDE RECORDS SUMMARY | 2025-01-24 16:47 | XMS_ITS | Patient Health Record ---
Author Organization [facility] [place] Address [address] [place] [place] [address] Care Team Providers Care Mushroom Cutter Name Role Phone Monica Darby Primary Care Provider Unavailab Fabricio Granados Unavailable [phone] Allergies No Known Allergies Results Component Value [...] Referring Provider Last Name Wilner [facility] Aleksandar Referred Provider Fabricio Juan Referred Address [address] [place],[address], Referred Provider Specialty Podiatry Referral Priority Routine [...] Problem Acquired hammer toe of right foot (42294346143011 05) Other hammer toe(s) (acquired), right foot (M20.41) Active confirmed Problem Acquired hammer toe of left foot (00149463662643 03) Other hammer toe(s) (acquired), left foot (M20.42) Active confirmed Problem Type 2 diabetes mellitus with peripheral angiopathy (823466407) 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.51) Active confirmed Vital Signs Blood pressure diastolic 65 mm Hg 11/26/2024 Height 5 ft 6 in in 11/26/2024 Blood pressure systolic 128 mm Hg 11/26/2024 Weight 160 lbs 11/26/2024 BMI 25.82 kg/m2 11/26/2024 Procedures Procedure Date Ordered Date Performed Result Body Sit e 70284-LQVENUE NAIL, 1-5 02/24/2024 N/A 74152-APSZ SKIN LESIONS, OVER 4 02/24/2024 N/A P0854-RSQUFZVW DYSTROPHIC NAILS ANY # 02/24/2024 N/A 25637-OBOMTLM NAIL, 1-5 05/25/2024 N/A 83838-YSBA SKIN LESIONS, OVER 4 05/25/2024 N/A A8709-AAEPBZQP DYSTROPHIC NAILS ANY # 05/25/2024 N/A 33723-AMRQGRW NAIL, 1-5 08/24/2024 N/A 72851-DHFO SKIN LESIONS, OVER 4 08/24/2024 N/A H2648-QBYELSTI DYSTROPHIC NAILS ANY # 08/24/2024 N/A 01189-JIWCAOE NAIL, 1-5 11/26/2024 N/A 14780-VSTI SKIN LESIONS, OVER 4 11/26/2024 N/A N8303-COSNTVNX DYSTROPHIC NAILS ANY # 11/26/2024 N/A Encounters Encounter Location Date Provider [facility] [address] 02/24/2024 Fabricio Parrunier Type 2 diabetes mellitus with diabetic peripheral angiopathy without gangrene E11.51 ; Tinea unguium B35.1 ; Pain in right toe(s) M79.674 ; Pain in left toe(s) M79.675 and Xerosis of skin L85.3 [facility] [address] 05/25/2024 Fabricio Juan Type 2 diabetes mellitus with diabetic peripheral angiopathy without gangrene E11.51 ; Tinea unguium B35.1 ; Pain in right toe(s) M79.674 ; Pain in left toe(s) M79.675 ; Other hammer toe(s) (acquired), right foot M20.41 and Other hammer toe(s) (acquired), left foot M20.42 [facility] [address] 08/24/2024 Fabricio Juan Tinea unguium B35.1 ; Type 2 diabetes mellitus with diabetic peripheral angiopathy without gangrene E11.51 ; Pain in right toe(s) M79.674 and Pain in left toe(s) M79.675 [facility] [address] 11/26/2024 Fabricio Parrunier Tinea unguium B35.1 ; Type 2 diabetes mellitus with diabetic peripheral angiopathy without gangrene E11.51 ; Pain in right toe(s) M79.674 and Pain in left toe(s) M79.675 Assessments Encounter Date Diagnosis (ICD Code) Assessment Notes Treatment Notes Treatment Clinical Notes Section Notes 02/24/2024 Tinea unguium (ICD-10 - B35.1) 02/24/2024 [...] angiopathy without gangrene (ICD-10 - E11.51) 11/26/2024 Pain in right toe(s) (ICD-10 - M79.674) 05/25/2024 Pain in right toe(s) (ICD-10 - M79.674) 08/24/2024 Pain in right toe(s) (ICD-10 - [...] X ray : Foot, left 3V 02/06/2022 67491-OXKFYSC NAIL, -05/07/2022 48819-JXZMVVJ NAIL, -01/21/2022 32700-CKDUDKL NAIL, -08/13/2022 29389-ENQBVYC NAIL, -02/04/2023 19942-GMNXXGZ NAIL, -06/13/2023 92991-DFIGZKY NAIL, -11/21/2023 54502-DWMMXJR NAIL, -02/24/2024 47259-XGCIJLN NAIL, -05/25/2024 02611-YJXCDLN NAIL, -08/24/2024 10401-FNVMMDJ NAIL, -11/26/2024 55287-YPVDBRJ NAIL, -11/12/2022 15376-Chel Destruction, -11/12/2022 81664-Eemq Destruction, -02/04/2023 90051-Qhap Destruction, -08/13/2022 43457-Ddlf Destruction, -01/21/2022 92355-Tasv Destruction, -05/07/2022 20983-MUIW SKIN LESIONS, OVER 4 05/07/19 23 57387-RNXS SKIN LESIONS, OVER 4 01/22/20 54798-FBKO SKIN LESIONS, OVER 4 08/14/19 23 55644-XJTI SKIN LESIONS, OVER 4 02/05/20 23 56174-QSDZ SKIN LESIONS, OVER 4 11/13/19 11804-UNAW SKIN LESIONS, OVER 4 11/27/19 97172-ZISD SKIN LESIONS, OVER 4 08/25/19 32157-SHSL SKIN LESIONS, OVER 4 05/25/19 63285-RKJX SKIN LESIONS, OVER 4 02/24/20 24 87154-YJJC SKIN LESIONS, OVER 4 11/21/19 03115-PIEW SKIN LESIONS, OVER 4 06/13/19 24 V2794-NMXFXGVA DYSTROPHIC NAILS ANY # Q8972-OGOOSRVD DYSTROPHIC NAILS ANY # K0919-RLXHZBLG DYSTROPHIC NAILS ANY # H9977-OYILVNPJ DYSTROPHIC NAILS ANY # L4914-BZBSFCZR DYSTROPHIC NAILS ANY # U8330-GJDKPVUU DYSTROPHIC NAILS ANY # E7740-QQCKCZTS DYSTROPHIC NAILS ANY # U9127-AMNWEKZU DYSTROPHIC NAILS ANY # N1672-TREENVJE DYSTROPHIC NAILS ANY # Q0079-JRXUXREW DYSTROPHIC NAILS ANY # A3603-MMBSSSJS DYSTROPHIC NAILS ANY # Next Appt Details Provider Name:Fabricio Juan , 03/29/2025 09:45:00 AM, [address] [place], [address], Insurance Providers Payer Name Payer Address Payer Phone Subscriber Number Group Number Insured Name Patient Relationship to Insured Coverage Start Date Coverage End Date [employer] Medicare Preferred [address] [place] [address] [id number] Jhonny Shrestha Self - patient is the insured Medical (General) History Medical History History ICD Code asthma Diabetic type ll Lung disease Parkinsons disease Stroke Chicken pox COPD Colon CA Hypercholesterolemia Hypertension Surgical History Surgery Date(Month/Year) appendectomy gall bladder cataract surgery Hospitalization History Reason Date(Month/Year) Ultrasound both legs for veins 2021
--- OUTSIDE RECORDS SUMMARY | 2025-01-24 16:47 | XMS_ITS | Clinical Summary ---
Author Organization [facility] Address [address] [place] [address] Care Team Providers Care Director Of Restaurant Operations Name Role Phone Unavailable Primary Care Provider [...]
== END 2025-01-24 15:01 | disposition home or self-care (01) ==
LOC: HO.HPS 14:16
PROVIDERS: PCP Internal Medicine; Visit Provider Internal Medicine
DX: J44.9 Chronic obstructive pulmonary disease, unspecified (principal); R05.9 Cough, unspecified; J30.9 Allergic rhinitis, unspecified
CPT/HCPCS: 99213

== ENCOUNTER → 2025-01-24 14:16 | Outpatient (BNVA) | payer MEDICARE, SELFPAY | PROVIDERS: PCP Internal Medicine; Visit Provider Internal Medicine | DX: J44.9 Chronic obstructive pulmonary disease, unspecified (principal); R05.9 Cough, unspecified; J30.9 Allergic rhinitis, unspecified | CPT/HCPCS: 99212 ==

== ENCOUNTER 2025-02-15 07:51 | Outpatient (REF) | payer MEDICARE, SELFPAY ==
--- OUTSIDE RECORDS SUMMARY | 2023-09-12 05:15 | XMS_ITS ---
Author Organization [facility] Address [address] [place] [address] Care Team Providers Care Process Design Engineer Name Role Phone Monica Darby Primary Care Provider Unavailab Fabricio Granados Unavailable [phone] trotter Encounters Encounter Location Date Provider Diagnosis [address] [address] 09/12/2023 Fabricio Juan Plan Of Treatment Next Appt Details Provider Name:Fabricio Juan , 03/29/2025 09:45:00 AM, [address] [place] [address], [phone], Progress Notes * Jesenia CASEYOB:1940 (84 yo M)Acc No.[id number]:09/12/2023 Progress Note Patient: Chuy MCCANN Jhonny Provider: Davin Juan DPM :1940 A ge:82 Y S ex:Male Date:09/12/2023 Address: [address] [place] Pcp:Monica Darby Subjective: * Chief Complaints: * [...] 0 09/12/2023 Generated for Danilo Hammond on: 07:55 AM EDT
--- OUTSIDE RECORDS SUMMARY | 2025-02-15 07:55 | XMS_ITS | Clinical Summary ---
Author Organization [facility] Address [address] [place] [address] Care Team Providers Care Public Space Attendant Name Role Phone Monica Darby MD Primary [...] DAILY 3 Active Lancets (OneTouch Delica Plus [id number]) misc USE TO CHECK SUGARS DAILY 3 [...] patient's age to complete this topic Insurance [facility] Care Teams Public Space Attendant Relationship Specialty Start Date End Date Monica Darby MD [address] [place] [address] PCP - General Internal Medicine 05/14/22
--- OUTSIDE RECORDS SUMMARY | 2025-02-15 07:55 | XMS_ITS | Clinical Summary ---
[facility] Organization [facility] [address] [place] [address] Care Team Providers Care Estimator Binding Name Role Phone Unavailable Primary Care Provider [...]
--- OUTSIDE RECORDS SUMMARY | 2025-02-15 07:56 | XMS_ITS | Patient Health Record ---
Author Organization [facility] [place] Address [address] [place] [address] Care Team Providers Care General Cleaner Name Role Phone Monica Darby Primary Care Provider Unavailab Fabricio Granados Unavailable [phone] Allergies No Known Allergies Results Component Value [...] Referring Provider Last Name Wilner [facility] Ale[facility] Referred Provider Fabricio Juan Referred Address [address] [place],[address], Referred Provider Specialty Podiatry Referral Priority Routine [...] Problem Acquired hammer toe of right foot (03842841280593 05) Other hammer toe(s) (acquired), right foot (M20.41) Active confirmed Problem Acquired hammer toe of left foot (08429174782108 03) Other hammer toe(s) (acquired), left foot (M20.42) Active confirmed Problem Type 2 diabetes mellitus with peripheral angiopathy (148149594) 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.51) Active confirmed Vital Signs Blood pressure diastolic 65 mm Hg 11/26/2024 Height 5 ft 6 in in 11/26/2024 Blood pressure systolic 128 mm Hg 11/26/2024 Weight 160 lbs 11/26/2024 BMI 25.82 kg/m2 11/26/2024 Procedures Procedure Date Ordered Date Performed Result Body Sit e 95916-BXASTBN NAIL, 1-5 02/24/2024 N/A 88321-XHVL SKIN LESIONS, OVER 4 02/24/2024 N/A L3780-XPDVJOKB DYSTROPHIC NAILS ANY # 02/24/2024 N/A 88434-EUCGBVT NAIL, 1-5 05/25/2024 N/A 20929-ATYI SKIN LESIONS, OVER 4 05/25/2024 N/A K0693-WHYBRZFJ DYSTROPHIC NAILS ANY # 05/25/2024 N/A 07029-VRLFGYZ NAIL, 1-5 08/24/2024 N/A 45561-IKUI SKIN LESIONS, OVER 4 08/24/2024 N/A Z3493-RIEAIOOM DYSTROPHIC NAILS ANY # 08/24/2024 N/A 96356-HSQUOPS NAIL, 1-5 11/26/2024 N/A 04054-ULXG SKIN LESIONS, OVER 4 11/26/2024 N/A M7662-CCIXFEYB DYSTROPHIC NAILS ANY # 11/26/2024 N/A Encounters Encounter Location Date Provider [facility] [address] 02/24/2024 Fabricio Parrunier Type 2 diabetes mellitus with diabetic peripheral angiopathy without gangrene E11.51 ; Tinea unguium B35.1 ; Pain in right toe(s) M79.674 ; Pain in left toe(s) M79.675 and Xerosis of skin L85.3 [facility] [address] 05/25/2024 Fabricio Juan Type 2 diabetes mellitus with diabetic peripheral angiopathy without gangrene E11.51 ; Tinea unguium B35.1 ; Pain in right toe(s) M79.674 ; Pain in left toe(s) M79.675 ; Other hammer toe(s) (acquired), right foot M20.41 and Other hammer toe(s) (acquired), left foot M20.42 [facility] [address] 08/24/2024 Fabricio Juan Tinea unguium B35.1 ; Type 2 diabetes mellitus with diabetic peripheral angiopathy without gangrene E11.51 ; Pain in right toe(s) M79.674 and Pain in left toe(s) M79.675 [facility] [address] 11/26/2024 Fabricio Parrunier Tinea unguium B35.1 ; [...] X ray : Foot, left 3V 02/06/2022 42077-XYQKKJC NAIL, -05/07/2022 85344-JIKUNPU NAIL, -01/21/2022 29094-ZLVOTKX NAIL, -08/13/2022 83632-DXXRUCW NAIL, -11/12/2022 61796-EGMXCOI NAIL, -02/04/2023 67181-POSOEIS NAIL, -06/13/2023 67129-QKRQJQK NAIL, -11/21/2023 84608-NYZNJBO NAIL, -02/24/2024 65886-ANNJMUB NAIL, -05/25/2024 80837-HFUSZLE NAIL, -08/24/2024 89697-FKYEAQI NAIL, -11/26/2024 64599-Zlsk Destruction, -02/04/2023 99697-Uejb Destruction, -11/12/2022 69557-Abjf Destruction, -08/13/2022 18602-Rggu Destruction, -01/21/2022 49463-Jrfz Destruction, -05/07/2022 68534-UMBW SKIN LESIONS, OVER 4 05/07/19 23 72920-YMRS SKIN LESIONS, OVER 4 01/22/20 14951-PVDA SKIN LESIONS, OVER 4 08/14/19 51971-NYTL SKIN LESIONS, OVER 4 11/13/19 23 64032-NSII SKIN LESIONS, OVER 4 02/05/20 89888-DHDV SKIN LESIONS, OVER 4 11/21/19 96434-JUDQ SKIN LESIONS, OVER 4 06/13/19 24 49833-AEBK SKIN LESIONS, OVER 4 11/27/19 98052-BLRA SKIN LESIONS, OVER 4 08/25/19 53442-HMGU SKIN LESIONS, OVER 4 05/25/19 25233-QWGM SKIN LESIONS, OVER 4 02/24/20 T5541-ZLNGOTTQ DYSTROPHIC NAILS ANY # O5445-VTRGHFHP DYSTROPHIC NAILS ANY # X4317-CCZUQPWY DYSTROPHIC NAILS ANY # Y1296-HURNNCAW DYSTROPHIC NAILS ANY # R6282-NSDLZTPG DYSTROPHIC NAILS ANY # Z9648-FBWSMDQF DYSTROPHIC NAILS ANY # U1098-HPXXVZZC DYSTROPHIC NAILS ANY # X3335-JHUSKHKR DYSTROPHIC NAILS ANY # H3616-LJGVJKFG DYSTROPHIC NAILS ANY # K1798-XBKIDZTH DYSTROPHIC NAILS ANY # O7892-QJFRENOV DYSTROPHIC NAILS ANY # Next Appt Details Provider Name:Fabricio Juan , 03/29/2025 09:45:00 AM, [address] [place], [address], Insurance Providers Payer Name Payer Address Payer Phone Subscriber Number Group Number Insured Name Patient Relationship to Insured Coverage Start Date Coverage End Date [employer] Medicare Preferred [address] [place] [address] [id number] Jhonny Shrestha Self - patient is the insured Medical (General) History Medical History History ICD Code asthma Diabetic type ll Lung disease Parkinsons disease Stroke Chicken pox COPD Colon CA Hypercholesterolemia Hypertension Surgical History Surgery Date(Month/Year) appendectomy gall bladder cataract surgery Hospitalization History Reason Date(Month/Year) Ultrasound both legs for veins 2021
--- OUTSIDE RECORDS SUMMARY | 2025-02-15 07:56 | XMS_ITS | Patient Health Record ---
Author Organization [facility] Address [address] [place] [address] Care Team Providers Care Esol Instructor Name Role Phone Puneetgary Monica Primary Care Provider Julio Cesar Green [phone] Allergies No Known Allergies Results Component Value Reference Range Notes Ferritin Reviewed date:08/21/2024 10:07:00 PM Interpretation: Performing Lab:[facility], [address] [place] [phone] Notes/Report: Ferritin 86 20-250 ng/mL Calprotectin, Fecal Reviewed date:09/05/2024 12:15:05 AM Interpretation: Performing Lab:[facility], [address] [place] [address] Notes/Report: Calprotectin, Fecal 192 Reference Range: <50 [...] borderline values. THIS TEST WAS PERFORMED AT: [employer] [address] [place] [address] JOEL JUAREZ MD,PHD,TERESO GI PANEL Reviewed date:08/25/2024 07:32:48 AM Interpretation: Performing Lab:[facility], [address] [place] [address] Notes/Report: Campylobacter Not Detected Not Detect. Plesiomonas [...] is performed by Multiplexed PCR, utilizing the [employer] Array. Complete Blood Count Auto Di ff Reviewed date:08/21/2024 10:05:57 PM Interpretation: Performing Lab:[facility], [address] [place] [address] Notes/Report: White Blood Count 7.9 4.8-10.8 X10*3/uL [...] te Reviewed date:08/21/2024 10:05:25 PM Interpretation: Performing Lab:[address] [address] Notes/Report: Erythrocyte Sedimentation Rate 34 0-15 MM/HR Patients with polycythemia and many hemoglobin abnormalities may have depressed sed rates whereas patients with anemia may have elevated sed rates. IRON PROFILE Reviewed date:08/21/2024 10:05:44 PM Interpretation: Performing Lab:[address] [address] Notes/Report: Iron 33 45-160 mcg/dL Total Iron Binding Capacity 228 228-428 mcg/dL Percent Iron Saturation 14 15-50 % Unsaturated Iron Binding 195 C Reactive Protein Reviewed date:08/21/2024 10:05:37 PM Interpretation: Performing Lab:[facility], [address] [place] [address] Notes/Report: C Reactive Protein 0.24 < or = 0.50 mg/dL Celiac Disease Panel Reviewed date:08/23/2024 10:54:56 PM Interpretation: Performing Lab:[facility], [address] [place] [address] Notes/Report: Immunoglobulin A 195 70-320 mg/dL THIS TEST WAS PERFORMED AT: [facility] [address] [place] [address] JES MCLAUGHLIN MD Transglutaminase IgA <1.0 Value [...] PCR Reviewed date:08/23/2024 10:54:06 PM Interpretation: Performing Lab:[facility], [address] [place] [address] Notes/Report: CDiff Gene PCR NEGATIVE Negative If C. difficile strongly suspected despite one negative test, a second test may be sent vs. empiric treatment for C. difficile infection. Complete Blood Count Auto Di ff (Not yet reviewed by provider) Interpretation: Performing Lab:[facility], [address] [place] [address] Notes/Report: White Blood Count 7.2 4.8-10.8 X10*3/uL [...] (Not yet reviewed by provider) Interpretation: Performing Lab:[facility], [address] [place] [phone] Notes/Report: White Blood Count 6.6 4.8-10.8 X10*3/uL [...] Provider Speciality Internal M edicine Referred Organization [facility] Referred Provider Julio Cesar Chaparro Referred Address [address] [place] [address],[place], [place],[address], Referred Provider Specialty Gastroentero logy Referral Priority [...] Once a day; Duration: 30 day(s) Active Lisinopril-hydroCHLOROthiaz joseluis 20-12.5 MG 1 tablet Orally Once a day; Duration: 30 day(s) Active Aspir-Low 81 MG 1 tablet Orally Once a day; Duration: 30 day(s) Active Calcium + D Active [...] e a day; Duration: 30 day(s) Active Immunizations [...] Problem Status W/U Status Risk Notes Problem Iron deficiency anemia due to chronic blood loss (514388925) 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) Active confirmed Problem Diarrhea (88665737) Diarrhea, unspecified type (R19.7) Active confirmed Problem Angiodysplasia of stomach (400066153) 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) Active confirmed Problem Anemia due to blood loss (739788470) Anemia due to blood loss (D50.0) Active confirmed Vital Signs Blood pressure diastolic 77 mm Hg 08/19/2024 Height 69 in 08/19/2024 Blood pressure systolic 111 mm Hg 08/19/2024 Weight 159 lbs 08/19/2024 BMI 23.48 kg/m2 08/19/2024 Encounters Encounter Location Date Provider Diagnosis [facility] [address] [place] [address] 04/27/2024 Julio Cesar Chaparro Diarrhea, unspecifie d type R19.7 and Iron deficiency anemia due to chronic blood loss D50.0 [facility] [address] [place] [address] 08/19/2024 Julio Cesar Chaparro Diarrhea, unspecifie d type R19.7 and Iron deficiency anemia due to chronic blood loss D50.0 [facility] [address] [place] [address] 07/13/2024 Julio Cesar Chaparro [facility] [address] [place] [address] 08/18/2024 Julio Cesar Chaparro [facility] [address] [place] [address] 01/03/2025 Julio Cesar Chaparro Assessments Encounter Date [...] Date [employer] PREFERRED [address] [place] [phone] [phone] [id number] LOPEZ CASEY Self - patient is the insured Medical (General) History Medical History History ICD Code Strokes--sees Dr. Johnson MCDONALDDM Hypertension Asthma COPD Denies [place],renal disease Iron deficiency anemia-he wa s hospitalized [...]
[2025-02-15 10:22] LABS: Hematocrit 39.3 % (42.0-52.0); Hemoglobin 12.4 g/dl (14.0-18.0); Mean Corpuscular HGB Conc 31.6 g/dl (31.0-36.0); Mean Corpuscular Hemoglobin 26.7 pg (27.0-33.0); Mean Corpuscular Volume 84.5 fL (80.0-98.0); NRBC Abs Auto 0.000 X10*3/uL (0.0-0.012); NRBC Pct Auto 0.0 /100WBC (0.0-0.2); Platelet Count 199 X10*3/uL (160-400); Red Blood Count 4.65 X10*6/uL (4.60-5.80); White Blood Count 9.9 X10*3/uL (4.8-10.8)
[2025-02-15 10:38] LABS: Alanine Aminotransferase 15 U/L (0-40); Albumin Level 4.1 g/dL (3.5-5.0); Alkaline Phosphatase 78 U/L (39-117); Anion Gap 13 (12-20); Aspartate Amino Transferase 18 U/L (5-37); Blood Urea Nitrogen 64 mg/dL (9-16); Calcium 9.4 mg/dL (8.4-10.2); Carbon Dioxide 26 mmol/L (22-29); Chloride 109 mmol/L (96-108); Estimated Glomerular Filt Rate 40; Potassium 4.6 mmol/L (3.3-5.1); Sodium 143 mmol/L (135-145); Total Protein 7.0 g/dL (6.5-8.0)
== END 2025-02-15 07:52 | disposition home or self-care (01) ==
LOC: HO.10HDL 07:51
PROVIDERS: Referring Provider Internal Medicine; Visit Provider Internal Medicine Hypertension Specialist
DX: I12.9 Hypertensive chronic kidney disease with stage 1 through stage 4 chronic kidney disease, or unspecified chronic kidney disease (principal); E11.22 Type 2 diabetes mellitus with diabetic chronic kidney disease; N18.32 Chronic kidney disease, stage 3b; R19.7 Diarrhea, unspecified
CPT/HCPCS: 36415; 80053; 83036; 85027

== ENCOUNTER 2025-03-01 10:43 | Outpatient (AMB) | payer MEDICARE, SELFPAY ==
--- OUTSIDE RECORDS SUMMARY | 2023-09-12 04:15 | XMS_ITS ---
Author Organization [facility] Address [address] [place] [address] Care Team Providers Care Core Stripper Name Role Phone Monica Darby Primary Care Provider Unavailab Fabricio Granados Unavailable [phone] trotter Encounters Encounter Location Date Provider Diagnosis [address] [address] 09/12/2023 Fabricio Juan Plan Of Treatment Next Appt Details Provider Name:Fabricio Juan , 03/29/2025 09:45:00 AM, [address] [place] [address], [phone], Progress Notes * Jesenia CASEYOB:1940 (84 yo M)Acc No.[id number]:09/12/2023 Progress Note Patient: Chuy MCCANN Jhonny Provider: Davin Juan DPM :1940 A ge:82 Y S ex:Male Date:09/12/2023 Address: [address] [id number] Pcp:Monica Darby Subjective: * Chief Complaints: * [address] trotter. * Medical History: Objective: * Vitals: Assessment: Plan: * Treatment: * Images: * The named appointment provid er may or may not be the originator of this progress note, and it is not deemed complete until electronically signed by the appointment provider. Sign off status: Pending * Provider: Davin Juan DPM Date: 0 09/12/2023 Generated for Danilo Hammond on: 05/01/2024 12:25 PM EST
--- NOTE | 2025-03-01 10:57 | HO.NEPHOV ---
Vital Signs 03/01/25 10:58 Height 5 ft 6 in Weight 158 lb BMI 25.5 BP 122/58 L Blood Pressure Location Rt brachial Position Sitting Intake Visit Reasons: 3mon f/u w/labs [employer]ified Network Professional Required: No Accompanied by: Self / Same As Patient Allergies No Known Allergies (No Known Allergies*) Allergy (Verified 03/01/25 11:00) Medication List - Last Reconciled 03/01/25 by Clive Boykin MD albuterol sulfate 90 mcg/actuation (Ventolin HFA) 2 puffs inhalation Q6H PRN aspirin 81 mg PO DAILY bismuth subsalicylate (Kaopectate Ex Str (bismuth ss)) 525 mg PO Q30M PRN Breo Ellipta 100-25 mcg/dose (fluticasone furoate-vilanterol) 1 inh inhalation DAILY 90 days NS cholecalciferol (vitamin D3) 50 mcg PO DAILY finasteride 5 mg PO DAILY 90 days fluticasone propionate 50 mcg/actuation 1 SPRAY INTRANASALLY 2 TIMES A DAY FOR ALLERGIC RHINITIS FOR 30 DAYS ADMINISTER 2 SPRAYS INTO EACH NOSTRIL glipizide ER 5 mg PO DAILY lisinopril-hydrochlorothiazide 10-12.5 mg 1 tab PO DAILY simvastatin 40 mg PO BEDTIME HPI Comments Details: 83-year-old man with a history of longstanding hypertension and diabetes mellitus with CKD 3. He has a history of hyperkalemia back in April 2022. This was treated medically. He was using salt substitute while he was on lisinopril. Lisinopril was placed on hold and restarted again. Over the last few months serum potassium has been in the normal range. Baseline serum creatinine is around 1.5 mg/dL. He has a history of prostate cancer and is being followed by Dr. Beatty. He has a history of for shortness of breath on exertion. Seen by Dr. Ornelas. Echocardiogram was unremarkable. s/p stress test Also has history of COPD. Being followed by Dr. Luz He was scheduled for his sleep evaluation but never underwent. 11/09: Accompanied by son - Art;Had eye surgery 03/08/24;Overall doing well. No urinary sypmtoms. 08/03/24 _ No new issues 11/30/24 ;c/o diarrhea x 3 days; No abdominal pain 03/01/25 The patient is an 84-year-old male presenting with chronic kidney disease. He has a history of hypertension and diabetes mellitus, which are contributing factors to his renal condition. The patient has experienced episodes of hyperkalemia, which have been managed in the past. Recently, the patient was hospitalized twice, with the last admission in November due to gastrointestinal bleeding. He reported diarrhea and blood in stools, which led to an endoscopic evaluation that was not completed due to cardiac concerns. No blood transfusions were administered during the hospital stay, and he was discharged with stable vitals. [facility] Medical History (Updated 03/01/25 @ 11:11 by Clive Boykin MD) CKD (chronic kidney disease) stage 3, GFR 30-59 ml/min Bifascicular block Diabetes Bradycardia Bronchitis Sinoatrial node dysfunction Cough Hypersomnia Stroke COPD exacerbation COPD (chronic obstructive pulmonary disease) Allergic rhinitis Surgical History Hx of cataract surgery (~09/2023) S/P tonsillectomy and adenoidectomy Hx of cholecystectomy History of appendectomy Family History Mother No problems noted. Father Heart disease Social History Household Members: Spouse Housing: House Do you presently have visiting nurse or other home services: Yes Alcohol intake: former Comment: PT standby assist to Bathroom Patient Tobacco Use Status: Former Tobacco user Years Smoked: 40 +/- service: Yes Physical Exam Vital Signs: Last Vital Signs BP 122/58 L 03/01/25 10:58 BMI result Body Mass Index 25.5 Neck Neck: Yes supple Resp Auscultation: clear to auscultation bilaterally Cardio Palpation: no palpable S3 Heart sounds: no rubs GI Palpation (GI): Soft to palpation Auscultation: normal bowel sounds Neuro Motor exam (neuro): no asterixis Results Reviewed Results Reviewed: CT SCAN NOV 2024 New hyperdensity in the rectum and distal sigmoid colon, likely blood products, in this patient with reported melena. Limited evaluation for active hemorrhage due to the absence of intravenous contrast. Sigmoid diverticulosis without evidence of diverticulitis. 0.8 cm distal left ureteral stone with evidence of chronic obstruction, given appearance of atrophic left kidney Nephrology Results: Hgb, (14.0-18.0) 12.4 g/dl L 02/15/25 WBC, (4.8-10.8) 9.9 X10*3/uL 02/15/25 Plt Count, (160-400) 199 X10*3/uL 02/15/25 Sodium, (135-145) 143 mmol/L 02/15/25 Potassium, (3.3-5.1) 4.6 mmol/L Δ 02/15/25 Chloride, (96-108) 109 mmol/L H 02/15/25 Carbon Dioxide, (22-29) 26 mmol/L 02/15/25 BUN, (9-16) 64 mg/dL H 02/15/25 Creatinine, (0.5-1.4) 1.65 mg/dL H 02/15/25 Calcium, (8.4-10.2) 9.4 mg/dL Δ 02/15/25 Renal US 09/04/22 Assessment & Plan Assessment & Plan (1) CKD (chronic kidney disease) stage 3, GFR 30-59 ml/min: Code(s): N18.30 - Chronic kidney disease, stage 3 unspecified Category: Medical Qualifiers: Chronic kidney disease stage 3 subtype: stage 3b (GFR 30-44) Qualified Code(s): N18.32 - Chronic kidney disease, stage 3b Plan: CKD in the setting of longstanding hypertension and diabetes mellitus. Renal function is close to baseline. He has stage IIIB CKD. Goal is to slow the progression of renal disease. Continue to avoid nephrotoxic agents including NSAIDs. Encouraged to stay on low-sodium diet. He will benefit from a SGLT 2 inhibitor (2) Hyperkalemia: Code(s): E87.5 - Hyperkalemia Category: Medical Plan: In a setting of CKD. stay on low-potassium diet. Avoid salt substitutes. Closely monitor serum potassium periodically. K is in the normal range at present Plan Anemia h/o Tommy Check CBC Anc Iron studies Needs GI follow up . Orders: Orders Basic Metabolic Panel 1 Week N18.32 - Chronic kidney disease, stage 3b Complete Blood Count Auto Diff 1 Week N18.32 - Chronic kidney disease, stage 3b IRON PROFILE 1 Week N18.32 - Chronic kidney disease, stage 3b Ferritin 1 Week N18.32 - Chronic kidney disease, stage 3b Coding Level of Care Code Est Pt Level 4 (18096) Diagnoses Stage 3b chronic kidney disease N18.32 Chronic kidney disease stage 3 subtype: stage 3b (GFR 30-44) Hyperkalemia E87.5
[2025-03-01 10:58] VITALS: BP 122/58; BMI 25.5
--- OUTSIDE RECORDS SUMMARY | 2025-03-01 12:25 | XMS_ITS | Clinical Summary ---
[facility] Address [address] [place] [address] Care Team Providers Care Electric Mule Operator Name Role Phone Unavailable Primary Care Provider [...]
--- OUTSIDE RECORDS SUMMARY | 2025-03-01 12:25 | XMS_ITS | Patient Health Record ---
[facility] [place] Address [address] [place] [address] Care Team Providers Care Machine Tender Name Role Phone Monica Darby Primary Care Provider Unavailab Fabricio Granados Unavailable [phone] Allergies No Known Allergies Results Component Value [...] Referring Provider Last Name Wilner [facility] Ale[facility] Referred Provider Fabricio Juan Referred Address [address] [place],[address], Referred Provider Specialty Podiatry Referral Priority Routine [...] Problem Acquired hammer toe of right foot (54752611090483 05) Other hammer toe(s) (acquired), right foot (M20.41) Active confirmed Problem Acquired hammer toe of left foot (54479643333355 03) Other hammer toe(s) (acquired), left foot (M20.42) Active confirmed Problem Type 2 diabetes mellitus with peripheral angiopathy (060382925) 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.51) Active confirmed Vital Signs Blood pressure diastolic 65 mm Hg 11/26/2024 Height 5 ft 6 in in 11/26/2024 Blood pressure systolic 128 mm Hg 11/26/2024 Weight 160 lbs 11/26/2024 BMI 25.82 kg/m2 11/26/2024 Procedures Procedure Date Ordered Date Performed Result Body Sit e 26612-EOPBNOZ NAIL, 1-5 05/25/2024 N/A 76032-DHBQ SKIN LESIONS, OVER 4 05/25/2024 N/A X1435-GDHCGTIA DYSTROPHIC NAILS ANY # 05/25/2024 N/A 59058-AIIORMA NAIL, 1-5 08/24/2024 N/A 00282-FCDM SKIN LESIONS, OVER 4 08/24/2024 N/A H8624-KYAUYQOF DYSTROPHIC NAILS ANY # 08/24/2024 N/A 45706-ALOJWWU NAIL, 1-5 11/26/2024 N/A 96148-AMUS SKIN LESIONS, OVER 4 11/26/2024 N/A X3277-IOPJZMRK DYSTROPHIC NAILS ANY # 11/26/2024 N/A Encounters Encounter Location Date Provider Diagnosis [address] [address] 05/25/2024 Fabricio Juan Type 2 diabetes mellitus with diabetic peripheral angiopathy without gangrene E11.51 ; Tinea unguium B35.1 ; Pain in right toe(s) M79.674 ; Pain in left toe(s) M79.675 ; Other hammer toe(s) (acquired), right foot M20.41 and Other hammer toe(s) (acquired), left foot M20.[address] [address] 08/24/2024 Fabricio Juan Tinea unguium B35.1 ; Type 2 diabetes mellitus with diabetic peripheral angiopathy without gangrene E11.51 ; Pain in right toe(s) M79.674 and Pain in left toe(s) M79.[address] [address] 11/26/2024 Fabricio Juan Tinea unguium B35.1 ; Type 2 diabetes mellitus with diabetic peripheral angiopathy without gangrene E11.51 ; Pain in right toe(s) M79.674 and Pain in left toe(s) M79.675 Assessments Encounter Date Diagnosis (ICD Code) Assessment Notes Treatment Notes Treatment Clinical Notes Section Notes 05/25/2024 Tinea unguium (ICD-10 - B35.1) 05/25/2024 [...] foot (ICD-10 - M20.42) Plan Of Treatment Pending Test Test Name Order Date X ray : Foot, left 3V 02/06/2022 39030-CHGWTJS NAIL, 1-05/07/2022 83127-MZTYBJP NAIL, 1-01/21/2022 03008-WQKTPSP NAIL, 1-5 08/13/2022 09172-UNOPMCR NAIL, 1-5 11/12/2022 51387-MIJGFZG NAIL, 1-5 02/04/2023 09519-ECQHRHZ NAIL, 1-5 06/13/2023 66245-IZIGPBN NAIL, 1-5 11/21/2023 34304-IEXGYYW NAIL, 1-5 02/24/2024 76606-ETKWIIA NAIL, 1-5 05/25/2024 52719-UAPQBPE NAIL, 1-5 08/24/2024 26130-KTUAKRE NAIL, 1-5 11/26/2024 49569-Irqo Destruction, 1-14 02/04/2023 83070-Bvgz Destruction, 1-14 11/12/2022 27277-Ldtu Destruction, 1-14 08/13/2022 13290-Wwfp Destruction, 1-14 01/21/2022 75398-Reru Destruction, 1-14 05/07/2022 60482-BNHD SKIN LESIONS, OVER 4 05/07/19 23 25687-XURK SKIN LESIONS, OVER 4 01/22/20 22 74871-HRDD SKIN LESIONS, OVER 4 08/14/19 23 70331-XFCD SKIN LESIONS, OVER 4 11/13/19 23 40972-LPOO SKIN LESIONS, OVER 4 02/05/20 23 51278-YTXE SKIN LESIONS, OVER 4 11/21/19 24 94008-SJJH SKIN LESIONS, OVER 4 06/13/19 24 08506-TDBP SKIN LESIONS, OVER 4 11/27/19 25 86982-NTGK SKIN LESIONS, OVER 4 08/25/19 25 21646-QROW SKIN LESIONS, OVER 4 05/25/19 25 38564-MFMB SKIN LESIONS, OVER 4 02/24/20 24 N3478-LPJZWABB DYSTROPHIC NAILS ANY # H1302-OUSAEQBF DYSTROPHIC NAILS ANY # A0239-LXIEZBWW DYSTROPHIC NAILS ANY # E3031-AMANBJAI DYSTROPHIC NAILS ANY # J4357-AICPCSWO DYSTROPHIC NAILS ANY # S1789-MHIWGMAR DYSTROPHIC NAILS ANY # P4038-YGZMBGDD DYSTROPHIC NAILS ANY # G6695-VFZALLZH DYSTROPHIC NAILS ANY # U9978-GLCLTNVW DYSTROPHIC NAILS ANY # B3049-IAOHSYWI DYSTROPHIC NAILS ANY # G1917-MNXYFLKO DYSTROPHIC NAILS ANY # Next Appt Details Provider Name:Fabricio Juan , 03/29/2025 09:45:00 AM, [address] [place], [address], Insurance Providers Payer Name Payer Address Payer Phone Subscriber Number Group Number Insured Name Patient Relationship to Insured Coverage Start Date Coverage End Date [employer] Medicare Preferred [address] [place] [address] [id number] Jhonny Shrestha Self - patient is the insured Medical (General) History Medical History History ICD Code asthma Diabetic type ll Lung disease Parkinsons disease Stroke Chicken pox COPD Colon CA Hypercholesterolemia Hypertension Surgical History Surgery Date(Month/Year) appendectomy gall bladder cataract surgery Hospitalization History Reason Date(Month/Year) Ultrasound both legs for veins 2021
--- OUTSIDE RECORDS SUMMARY | 2025-03-01 12:26 | XMS_ITS | Patient Health Record ---
Author Organization [facility] Address [address] [place] [address] Care Team Providers Care Tug Boat Captain Name Role Phone Puneetgary Monica Primary Care Provider Julio Cesar Green [phone] Allergies No Known Allergies Results Component Value Reference Range Notes Ferritin Reviewed date:08/21/2024 10:07:00 PM Interpretation: Performing Lab:[facility], [address] [place] [phone] Notes/Report: Ferritin 86 20-250 ng/mL Calprotectin, Fecal Reviewed date:09/05/2024 12:15:05 AM Interpretation: Performing Lab:[facility], [address] [place] [address] Notes/Report: Calprotectin, Fecal 192 Reference Range: <50 [...] borderline values. THIS TEST WAS PERFORMED AT: [facility] [address] [place] [address] JOEL JUAREZ MD,PHD,TERESO GI PANEL Reviewed date:08/25/2024 07:32:48 AM Interpretation: Performing Lab:[facility], [address] [place] [address] Notes/Report: Campylobacter Not Detected Not Detect. Plesiomonas [...] is performed by Multiplexed PCR, utilizing the Open Utility Array. Complete Blood Count Auto Di ff Reviewed date:08/21/2024 10:05:57 PM Interpretation: Performing Lab:[facility], [address] [place] [address] Notes/Report: White Blood Count 7.9 4.8-10.8 X10*3/uL [...] te Reviewed date:08/21/2024 10:05:25 PM Interpretation: Performing Lab:[address] [address] Notes/Report: Erythrocyte Sedimentation Rate 34 0-15 MM/HR Patients with polycythemia and many hemoglobin abnormalities may have depressed sed rates whereas patients with anemia may have elevated sed rates. IRON PROFILE Reviewed date:08/21/2024 10:05:44 PM Interpretation: Performing Lab:[address] [address] Notes/Report: Iron 33 45-160 mcg/dL Total Iron Binding Capacity 228 228-428 mcg/dL Percent Iron Saturation 14 15-50 % Unsaturated Iron Binding 195 C Reactive Protein Reviewed date:08/21/2024 10:05:37 PM Interpretation: Performing Lab:[facility], [address] [place] [phone] Notes/Report: C Reactive Protein 0.24 < or = 0.50 mg/dL Celiac Disease Panel Reviewed date:08/23/2024 10:54:56 PM Interpretation: Performing Lab:[facility], [address] [place] [phone] Notes/Report: Immunoglobulin A 195 70-320 mg/dL THIS TEST WAS PERFORMED AT: [facility] [address] [place] [address] JES MCLAUGHLIN MD Transglutaminase IgA <1.0 Value [...] PCR Reviewed date:08/23/2024 10:54:06 PM Interpretation: Performing Lab:[facility], [address] [place] [address] Notes/Report: CDiff Gene PCR NEGATIVE Negative If C. difficile strongly suspected despite one negative test, a second test may be sent vs. empiric treatment for C. difficile infection. Complete Blood Count Auto Di ff (Not yet reviewed by provider) Interpretation: Performing Lab:[facility], [address] [place] [address] Notes/Report: White Blood Count 7.2 4.8-10.8 X10*3/uL [...] (Not yet reviewed by provider) Interpretation: Performing Lab:[facility], [address] [place] [phone] Notes/Report: White Blood Count 6.6 4.8-10.8 X10*3/uL [...] Provider Speciality Internal M edicine Referred Organization [facility] Referred Provider Julio Cesar Chaparro Referred Address [address] [place] [address],[place], [place],[address], Referred Provider Specialty Gastroentero logy Referral Priority [...] deficiency anemia due to chronic blood loss (513937006) 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) Active confirmed Problem Diarrhea (48260761) Diarrhea, unspecified type (R19.7) Active confirmed Problem Angiodysplasia of stomach (612974947) 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) Active confirmed Problem Anemia due to blood loss (906699208) Anemia due to blood loss (D50.0) Active confirmed Vital Signs Blood pressure diastolic 77 mm Hg 08/19/2024 Height 69 in 08/19/2024 Blood pressure systolic 111 mm Hg 08/19/2024 Weight 159 lbs 08/19/2024 BMI 23.48 kg/m2 08/19/2024 Encounters Encounter Location Date Provider Diagnosis [facility] [address] [place] [address] 04/27/2024 Julio Cesar Chaparro Diarrhea, unspecifie d type R19.7 and Iron deficiency anemia due to chronic blood loss D50.0 [facility] [address] [place] [address] 08/19/2024 Julio Cesar Chaparro Diarrhea, unspecifie d type R19.7 and Iron deficiency anemia due to chronic blood loss D50.0 [facility] [address] [place] [address] 07/13/2024 Julio Cesar Chaparro [facility] [address] [place] [address] 08/18/2024 Julio Cesar Chaparro [facility] [address] [place] [address] 01/03/2025 Julio Cesar Chaparro Assessments Encounter Date [...] Date [employer] PREFERRED [address] [place] [id number] LOPEZ CASEY Self - patient is the insured Medical (General) History Medical History History ICD Code Strokes--sees Dr. Johnson MCDONALDDM Hypertension Asthma COPD Denies CT,renal disease Iron deficiency anemia-he wa s hospitalized [...]
== END 2025-03-01 11:16 | disposition home or self-care (01) ==
LOC: HO.HKA 10:44
PROVIDERS: PCP Internal Medicine; Visit Provider Internal Medicine Hypertension Specialist
DX: N18.32 Chronic kidney disease, stage 3b (principal); E87.5 Hyperkalemia
CPT/HCPCS: 99214

== ENCOUNTER → 2025-03-01 10:43 | Outpatient (BNVA) | payer MEDICARE, SELFPAY | PROVIDERS: PCP Internal Medicine; Visit Provider Internal Medicine Hypertension Specialist | DX: N18.32 Chronic kidney disease, stage 3b (principal); E87.5 Hyperkalemia | CPT/HCPCS: 99212 ==

== ENCOUNTER 2025-03-04 07:27 | Outpatient (REF) | payer MEDICARE, SELFPAY ==
--- OUTSIDE RECORDS SUMMARY | 2023-09-12 04:15 | XMS_ITS ---
Author Organization [facility] Address [address] [place] [address] Care Team Providers Care Sugar House Supervisor Name Role Phone Monica Darby Primary Care Provider Unavailab Fabricio Granados Unavailable [phone] trotter Encounters Encounter Location Date Provider Diagnosis [address] [address] 09/12/2023 Fabricio Juan Plan Of Treatment Next Appt Details Provider Name:Fabricio Juan , 03/29/2025 09:45:00 AM, [address] [place] [address], [phone], Progress Notes * Jesenia CASEYOB:1940 (84 yo M)Acc No.[id number]:09/12/2023 Progress Note Patient: Chuy MCCANN Jhonny Provider: Davin Juan DPM :1940 A ge:82 Y S ex:Male Date:09/12/2023 Address: [address] [place] Pcp:Monica Darby Subjective: * Chief Complaints: * [...] 0 09/12/2023 Generated for Danilo Hammond on: 05/04/2024 07:30 AM EST
--- OUTSIDE RECORDS SUMMARY | 2025-03-04 07:30 | XMS_ITS | Clinical Summary ---
Author Organization [facility] Facility Address [address] [place] [address] Care Team Providers Care Commercial Counsel Name Role Phone Monica Darby MD Primary [...] DAILY 3 Active Lancets (OneTouch Delica Plus [id number]) misc USE TO CHECK SUGARS DAILY 3 [...] patient's age to complete this topic Insurance [facility] Care Teams Commercial Counsel Relationship Specialty Start Date End Date Monica Darby MD [address] [place] [address] PCP - General Internal Medicine 05/14/22
--- OUTSIDE RECORDS SUMMARY | 2025-03-04 07:30 | XMS_ITS | Patient Health Record ---
[facility] [place] Address [address] [place] [address] Care Team Providers Care Upper Tier Name Role Phone Monica Darby Primary Care Provider Unavailab Fabricio Granados Unavailable [phone] Allergies No Known Allergies Results Component Value [...] Referring Provider Last Name Wilner [facility] Referred Provider Fabricio Juan Referred Address [address] [place],[address], Referred Provider Specialty Podiatry Referral Priority Routine [...] Problem Acquired hammer toe of right foot (94156625827361 05) Other hammer toe(s) (acquired), right foot (M20.41) Active confirmed Problem Acquired hammer toe of left foot (02185642491131 03) Other hammer toe(s) (acquired), left foot (M20.42) Active confirmed Problem Type 2 diabetes mellitus with peripheral angiopathy (369436662) 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.51) Active confirmed Vital Signs Blood pressure diastolic 65 mm Hg 11/26/2024 Height 5 ft 6 in in 11/26/2024 Blood pressure systolic 128 mm Hg 11/26/2024 Weight 160 lbs 11/26/2024 BMI 25.82 kg/m2 11/26/2024 Procedures Procedure Date Ordered Date Performed Result Body Sit e 55945-YKRJZJR NAIL, 1-5 05/25/2024 N/A 22271-ITVJ SKIN LESIONS, OVER 4 05/25/2024 N/A N7799-AENTVNSR DYSTROPHIC NAILS ANY # 05/25/2024 N/A 65325-GFEJNWL NAIL, 1-5 08/24/2024 N/A 68845-UBVI SKIN LESIONS, OVER 4 08/24/2024 N/A O7775-RUMOGIMC DYSTROPHIC NAILS ANY # 08/24/2024 N/A 77808-MEIEUGJ NAIL, 1-5 11/26/2024 N/A 48897-LGHF SKIN LESIONS, OVER 4 11/26/2024 N/A V7167-QPHGQFSD DYSTROPHIC NAILS ANY # 11/26/2024 N/A Encounters Encounter Location Date Provider Diagnosis [address] [address] 05/25/2024 Fabricio Juan Type 2 diabetes mellitus with diabetic peripheral angiopathy without gangrene E11.51 ; Tinea unguium B35.1 ; Pain in right toe(s) M79.674 ; Pain in left toe(s) M79.675 ; Other hammer toe(s) (acquired), right foot M20.41 and Other hammer toe(s) (acquired), left foot M20.[address] [address] 08/24/2024 Fabricio Juan Tinea unguium B35.1 ; Type 2 diabetes mellitus with diabetic peripheral angiopathy without gangrene E11.51 ; Pain in right toe(s) M79.674 and Pain in left toe(s) M79.[address] [address] 11/26/2024 Fabricio Juan Tinea unguium B35.1 ; [...] X ray : Foot, left 3V 02/06/2022 40180-HCSXWNW NAIL, 1-05/07/2022 15707-MSRRZSN NAIL, 1-01/21/2022 52761-AETURVU NAIL, 1-5 08/13/2022 42053-HAKWBAD NAIL, 1-5 11/12/2022 95517-VQMEKXR NAIL, 1-5 02/04/2023 69638-EDNMSMS NAIL, 1-5 06/13/2023 05377-DINDAYO NAIL, 1-5 11/21/2023 68430-TPGWSFH NAIL, 1-5 02/24/2024 61929-KRXQNKY NAIL, 1-5 05/25/2024 59324-ZHIVTDU NAIL, 1-5 08/24/2024 51693-LFIENYP NAIL, 1-5 11/26/2024 26014-Lbhw Destruction, 1-14 02/04/2023 47834-Zple Destruction, 1-14 11/12/2022 42450-Ktni Destruction, 1-14 08/13/2022 07259-Wvrx Destruction, 1-14 01/21/2022 43957-Vhnj Destruction, 1-14 05/07/2022 97436-UIFG SKIN LESIONS, OVER 4 05/07/19 23 21762-YMDF SKIN LESIONS, OVER 4 01/22/20 22 04427-GWBH SKIN LESIONS, OVER 4 08/14/19 23 74806-SAUD SKIN LESIONS, OVER 4 11/13/19 23 14314-VGEJ SKIN LESIONS, OVER 4 02/05/20 23 22156-KXHX SKIN LESIONS, OVER 4 11/21/19 24 24434-QKEW SKIN LESIONS, OVER 4 06/13/19 24 53690-QYAL SKIN LESIONS, OVER 4 11/27/19 25 92828-JNSD SKIN LESIONS, OVER 4 08/25/19 25 84977-JDUD SKIN LESIONS, OVER 4 05/25/19 25 22678-QQZE SKIN LESIONS, OVER 4 02/24/20 24 S5435-HTLZLSRT DYSTROPHIC NAILS ANY # B1261-VBKFIMGW DYSTROPHIC NAILS ANY # J3398-VILOIMET DYSTROPHIC NAILS ANY # E3639-NTZDYSVL DYSTROPHIC NAILS ANY # B8561-FYIGBSDH DYSTROPHIC NAILS ANY # C4974-WAULJLOQ DYSTROPHIC NAILS ANY # U5943-QHGSDXHN DYSTROPHIC NAILS ANY # N3419-IMOVMWNI DYSTROPHIC NAILS ANY # K3184-MROBAOFM DYSTROPHIC NAILS ANY # J4712-YRZRJIYF DYSTROPHIC NAILS ANY # G4815-YARADQHE DYSTROPHIC NAILS ANY # Next Appt Details Provider Name:Fabricio Juan , 03/29/2025 09:45:00 AM, [address] [place], [address], Insurance Providers Payer Name Payer Address Payer Phone Subscriber Number Group Number Insured Name Patient Relationship to Insured Coverage Start Date Coverage End Date [employer] Medicare Preferred [address] [place] [address] [id number] Jhonny Shrestha Self - patient is the insured Medical (General) History Medical History History ICD Code asthma Diabetic type ll Lung disease Parkinsons disease Stroke Chicken pox COPD Colon CA Hypercholesterolemia Hypertension Surgical History Surgery Date(Month/Year) appendectomy gall bladder cataract surgery Hospitalization History Reason Date(Month/Year) Ultrasound both legs for veins 2021
--- OUTSIDE RECORDS SUMMARY | 2025-03-04 07:30 | XMS_ITS | Patient Health Record ---
Author Organization [facility] Address [address] [place] [address] Care Team Providers Care Food Service Attendant Name Role Phone Puneetgary Monica Primary Care Provider Julio Cesar Green [phone] Allergies No Known Allergies Results Component Value Reference Range Notes Ferritin Reviewed date:08/21/2024 10:07:00 PM Interpretation: Performing Lab:[facility], [address] [place] [phone] Notes/Report: Ferritin 86 20-250 ng/mL Calprotectin, Fecal Reviewed date:09/05/2024 12:15:05 AM Interpretation: Performing Lab:[facility], [address] [place] [phone] Notes/Report: Calprotectin, Fecal 192 Reference Range: <50 [...] borderline values. THIS TEST WAS PERFORMED AT: [facility] [address] [place] [address] JOEL JUAREZ MD,PHD,TERESO GI PANEL Reviewed date:08/25/2024 07:32:48 AM Interpretation: Performing Lab:[facility], [address] [place] [phone] Notes/Report: Campylobacter Not Detected Not Detect. Plesiomonas [...] is performed by Multiplexed PCR, utilizing the [employer] Array. Complete Blood Count Auto Di ff Reviewed date:08/21/2024 10:05:57 PM Interpretation: Performing Lab:[facility], [address] [place] [phone] Notes/Report: White Blood Count 7.9 4.8-10.8 X10*3/uL [...] te Reviewed date:08/21/2024 10:05:25 PM Interpretation: Performing Lab:[address] [phone] Notes/Report: Erythrocyte Sedimentation Rate 34 0-15 MM/HR Patients with polycythemia and many hemoglobin abnormalities may have depressed sed rates whereas patients with anemia may have elevated sed rates. IRON PROFILE Reviewed date:08/21/2024 10:05:44 PM Interpretation: Performing Lab:[address] [phone] Notes/Report: Iron 33 45-160 mcg/dL Total Iron Binding Capacity 228 228-428 mcg/dL Percent Iron Saturation 14 15-50 % Unsaturated Iron Binding 195 C Reactive Protein Reviewed date:08/21/2024 10:05:37 PM Interpretation: Performing Lab:[facility], [address] [place] [phone] Notes/Report: C Reactive Protein 0.24 < or = 0.50 mg/dL Celiac Disease Panel Reviewed date:08/23/2024 10:54:56 PM Interpretation: Performing Lab:[facility], [address] [place] [phone] Notes/Report: Immunoglobulin A 195 70-320 mg/dL THIS TEST WAS PERFORMED AT: [facility] [address] [place] [phone] JES MCLAUGHLIN MD Transglutaminase IgA <1.0 Value [...] PCR Reviewed date:08/23/2024 10:54:06 PM Interpretation: Performing Lab:[facility], [address] [place] [phone] Notes/Report: CDiff Gene PCR NEGATIVE Negative If C. difficile strongly suspected despite one negative test, a second test may be sent vs. empiric treatment for C. difficile infection. Complete Blood Count Auto Di ff (Not yet reviewed by provider) Interpretation: Performing Lab:[facility], [address] [place] [phone] Notes/Report: White Blood Count 7.2 4.8-10.8 X10*3/uL [...] (Not yet reviewed by provider) Interpretation: Performing Lab:[facility], [address] [place] [phone] Notes/Report: White Blood Count 6.6 4.8-10.8 X10*3/uL [...] Provider Speciality Internal M edicine Referred Organization [facility] Referred Provider Julio Cesar Chaparro Referred Address [address] [place] [address],[place], [place],[address], Referred Provider Specialty Gastroentero logy Referral Priority [...] deficiency anemia due to chronic blood loss (675392410) 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) Active confirmed Problem Diarrhea (33630457) Diarrhea, unspecified type (R19.7) Active confirmed Problem Angiodysplasia of stomach (600738710) 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) Active confirmed Problem Anemia due to blood loss (353392747) Anemia due to blood loss (D50.0) Active confirmed Vital Signs Blood pressure diastolic 77 mm Hg 08/19/2024 Height 69 in 08/19/2024 Blood pressure systolic 111 mm Hg 08/19/2024 Weight 159 lbs 08/19/2024 BMI 23.48 kg/m2 08/19/2024 Encounters Encounter Location Date Provider Diagnosis [facility] [address] [place] [phone] 04/27/2024 Julio Cesar Chaparro Diarrhea, unspecifie d type R19.7 and Iron deficiency anemia due to chronic blood loss D50.0 [facility] [address] [place] [phone] 08/19/2024 Julio Cesar Chaparro Diarrhea, unspecifie d type R19.7 and Iron deficiency anemia due to chronic blood loss D50.0 [facility] [address] [place] [phone] 07/13/2024 Julio Cesar Chaparro [facility] [address] [place] [phone] 08/18/2024 Julio Cesar Chaparro [facility] [address] [place] [address] 01/03/2025 Julio Cesar Chaparro Assessments Encounter Date [...] Date [employer] PREFERRED [address] [place] [address] [id number] LOPEZ CASEY Self - patient is the [...]
--- OUTSIDE RECORDS SUMMARY | 2025-03-04 07:30 | XMS_ITS | Clinical Summary ---
[facility] Organization [facility] Address [address] [place] [address] Care Team Providers Care Infantry Assaultman Name Role Phone Unavailable Primary Care Provider [...] Depression Screening 04/21/2024 COVID-19 Vaccine (1 - 2024-2 6 season) 2024 Influenza Vaccine (#1) 2024 HIB [...]
[2025-03-04 10:28] LABS: MANUAL DIFF FLAG NO
[2025-03-04 10:52] LABS: Hematocrit 41.0 % (42.0-52.0); Hemoglobin 13.2 g/dl (14.0-18.0); Imm Gran Abs Auto 0.06 X10*3/uL (0.00-0.03); Imm Gran Pct Auto 0.4 % (0.0-0.4); Lymphocytes Absolute Auto 3.9 X10*3/uL (1.2-4.9); Mean Corpuscular HGB Conc 32.2 g/dl (31.0-36.0); Mean Corpuscular Hemoglobin 26.7 pg (27.0-33.0); Mean Corpuscular Volume 83.0 fL (80.0-98.0); NRBC Abs Auto 0.000 X10*3/uL (0.0-0.012); NRBC Pct Auto 0.0 /100WBC (0.0-0.2); Platelet Count 197 X10*3/uL (160-400); Red Blood Count 4.94 X10*6/uL (4.60-5.80); White Blood Count 13.8 X10*3/uL (4.8-10.8)
[2025-03-04 11:09] LABS: Anion Gap 14 (12-20); Blood Urea Nitrogen 48 mg/dL (9-16); Calcium 9.3 mg/dL (8.4-10.2); Carbon Dioxide 24 mmol/L (22-29); Chloride 106 mmol/L (96-108); Estimated Glomerular Filt Rate 41; Iron 62 mcg/dL (45-160); Percent Iron Saturation 22 % (15-50); Potassium 4.4 mmol/L (3.3-5.1); Sodium 140 mmol/L (135-145); Total Iron Binding Capacity 277 mcg/dL (228-428); Unsaturated Iron Binding 215 ug/dL
[2025-03-04 11:11] LABS: Ferritin 45 ng/mL (20-250)
== END 2025-03-04 07:28 | disposition home or self-care (01) ==
LOC: HO.10HDL 07:27
PROVIDERS: Visit Provider Internal Medicine Hypertension Specialist
DX: N18.32 Chronic kidney disease, stage 3b (principal)
CPT/HCPCS: 36415; 80048; 82728; 83540; 85025